=== PATIENT | female | born 1995 | race Caucasian/White ===

== ENCOUNTER 2020-01-16 11:17 | Emergency (ER) | payer OTHER, MEDICAID, SELFPAY ==
[2020-01-16 12:20] VITALS: BP 137/75; PULSE 99; RESP 18; TEMP 37.2; O2SAT 100; BMI 45.8
[2020-01-16 12:28] VITALS: BP 137/75; PULSE 99; RESP 18; TEMP 37.2; O2SAT 100
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
[2020-01-16 14:02] LABS: Appearance Urine HAZY; Color Urine YELLOW; Glucose Urine UA NEG (NEG); Leukocyte Esterase Urine 2+ (NEG); Nitrite Urine NEG (NEG); PH 6.5 (5.0-8.0); Urine Blood 2+ (NEG); Urine Ketones NEG (NEG); Urine Protein NEG (NEG-TRACE)
[2020-01-16 14:10] LABS: UPreg QC Valid YES; Urine Pregnancy NEGATIVE (NEGATIVE)
[2020-01-16 14:18] LABS: Bacteria Urine 2+ /LPF; Mucus Urine 1+ /LPF; Squamous Epithelial Cell Urine 1+ /LPF; WBC Clumps Urine NOTED
--- NOTE | 2020-01-16 14:52 | PC.NURSE ---
Report given to oncoming nurse, Niyah BOO. No further questions from Niyah BOO. Provider aware.
== END 2020-01-16 16:00 | disposition home or self-care (01) ==
PROVIDERS: Physician Assistant Medical; Emergency Provider Emergency Medicine
DX: S06.0X0A Concussion without loss of consciousness, initial encounter (principal); S40.022A Contusion of left upper arm, initial encounter; S20.212A Contusion of left front wall of thorax, initial encounter; Y04.2XXA Assault by strike against or bumped into by another person, initial encounter; N39.0 Urinary tract infection, site not specified; Y93.89 Activity, other specified; Y92.099 Unspecified place in other non-institutional residence as the place of occurrence of the external cause; Y99.9 Unspecified external cause status
CPT/HCPCS: 70450; 71046; 73060; 81001; 81025; 87086; 99284

== ENCOUNTER 2020-01-21 15:22 | Emergency (ER) | payer OTHER, MEDICAID, SELFPAY ==
[2020-01-21] VITALS (8 sets, daily range): BP systolic 115–135; BP diastolic 64–91; PULSE 56–85; RESP 18; TEMP 37.5; O2SAT 96–98; BMI 45.8
--- NOTE | 2020-01-21 17:43 | ECG_ITS ---
Test Reason : SYNCOPEE Blood Pressure : / mmHG Vent. Rate : 065 BPM Atrial Rate : 065 BPM P-R Int : 152 ms QRS Dur : 076 ms QT Int : 398 ms P-R-T Axes : 019 063 044 degrees QTc Int : 413 ms Sinus rhythm with marked sinus arrhythmia Otherwise normal ECG When compared with ECG of 09-NOV-2016 15:18, No significant change was found Referred By: Katarzyna Granados Electronically Signed By:PRIYA MENON MD
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
[2020-01-21] MEDS: 0.9 % Sodium Chloride 1,000 ML 999 ML IVCONT (18:35)
[2020-01-21 18:40] LABS: MANUAL DIFF FLAG NO
[2020-01-21 18:54] LABS: Basophils Percent Auto 0.4 % (0-2); Eosinophils Absolute Auto 0.1 X10*3/uL (0.0-0.4); Eosinophils Percent Auto 0.7 % (0-4); Hematocrit 39.2 % (37-47); Hemoglobin 13.5 g/dl (12.0-16.0); Imm Gran Abs Auto 0.03 X10*3/uL (0.00-0.03); Imm Gran Pct Auto 0.3 % (0.0-0.4); Lymphocytes Absolute Auto 1.9 X10*3/uL (1.2-4.9); Lymphocytes Percent Auto 19.4 % (20-40); Mean Corpuscular HGB Conc 34.4 g/dl (31.0-35.0); Mean Corpuscular Volume 89.9 fL (80-98); Mean Platelet Volume 8.9 fL (9.4-12.3); Monocytes Absolute Auto 0.5 X10*3/uL (0.1-1.2); Monocytes Percent Auto 5.1 % (2-11); Neutrophils Absolute Auto 7.4 X10*3/uL (2.0-8.3); Neutrophils Percent Auto 74.1 % (45-73); Platelet Count 280 X10*3/uL (160-400); Red Blood Count 4.36 X10*6/uL (4.20-5.50); Red Cell Distribution Width 13.1 % (11.0-16.0)
[2020-01-21 19:17] LABS: Alanine Aminotransferase 18 U/L (0-31); Albumin Level 4.2 g/dL (3.5-5.0); Alkaline Phosphatase 60 U/L (39-117); Anion Gap 11 (12-20); Aspartate Amino Transferase 19 U/L (5-31); Bilirubin Direct 0.6 mg/dL (0.0-0.5); Bilirubin Total 1.2 mg/dL (0.0-1.0); Blood Urea Nitrogen 9 mg/dL (9-16); Calcium 9.6 mg/dL (8.4-10.2); Carbon Dioxide 30 mmol/L (22-29); Chloride 104 mmol/L (96-108); Creatinine Clr Calc Pharmacy 101.2; Estimated Glomerular Filt Rate > 60; Glucose Random 78 mg/dL (60-115); Potassium 4.3 mmol/l (3.3-5.1); Sodium 141 mmol/L (135-145)
[2020-01-21 19:23] LABS: Troponin-I High Sensitivity < 3.5 ng/L (<3.5-17.0)
[2020-01-21 19:47] LABS: Glucose Urine UA NEG (NEG); Leukocyte Esterase Urine 1+ (NEG); Nitrite Urine NEG (NEG); Urine Blood NEG (NEG); Urine Ketones 15 MG/DL (NEG); Urine Protein NEG (NEG-TRACE)
[2020-01-21 19:54] LABS: Appearance Urine HAZY; Color Urine YELLOW
[2020-01-21 19:55] LABS: UPreg QC Valid YES; Urine Pregnancy NEGATIVE (NEGATIVE)
[2020-01-21 20:02] LABS: RBC Urine 0 /HPF (0)
[2020-01-21 20:03] LABS: Bacteria Urine TRACE /LPF; Squamous Epithelial Cell Urine 2+ /LPF
[2020-01-21] MEDS: Acetaminophen 325 MG TABLET 650 MG PO (20:36)
[2020-01-21] MEDS: Meclizine HCl 25 MG TABLET PO (20:36)
[2020-01-21] MEDS: ondansetron HCL 4 MG/2 ML VIAL IVPUSH (20:43)
== END 2020-01-21 21:42 | disposition home or self-care (01) ==
PROVIDERS: Physician Assistant; Emergency Provider Emergency Medicine
DX: S06.0X9A Concussion with loss of consciousness of unspecified duration, initial encounter (principal); G44.309 Post-traumatic headache, unspecified, not intractable; R42 Dizziness and giddiness; Y04.8XXA Assault by other bodily force, initial encounter; Y93.9 Activity, unspecified; Y92.9 Unspecified place or not applicable; Z79.899 Other long term (current) drug therapy
CPT/HCPCS: 36415; 80048; 80076; 81001; 81025; 83735; 84484; 85025; 87086; 93005; 96361; 96374; 99284; J2405

== ENCOUNTER 2020-06-14 20:40 | Emergency (ER) | payer MEDICAID, SELFPAY ==
--- NOTE | 2020-06-14 21:57 | ED_ITS ---
HPI - Headache General Chief Complaint: General Medical Stated Complaint: Migraine Time Seen by Provider: 06/14/20 21:57 Source: patient Mode of arrival: ambulatory Limitations: other (hard of hearing) History of Present Illness HPI Narrative: patient states she has had months of tinnitus and headache. She is here now because symptoms are worse. Mother told her to come in and get checked MD elicited complaint: headache and migraine Onset (ago): month(s) Onset description: gradually Location: frontal and temporal Severity: mild Quality & Timing: throbbing Exacerbating factors: exertion Relieving factors: nothing Context: occurred at rest Associated symptoms: nausea Related Data Previous Rx's Medication Instructions Recorded nitrofurantoin monohyd/m-cryst 100 mg PO Q12H 5 Days #10 cap 01/16/20 [Macrobid] acetaminophen-codeine 1 tab PO Q8H PRN 3 Days #9 tab 01/17/20 acetaminophen [Tylenol Extra 500 mg PO Q6H PRN #20 tab 01/21/20 Strength] meclizine 25 mg PO TID PRN #14 tab 01/21/20 ondansetron HCl [Zofran] 4 mg PO Q8H PRN #10 tab 01/21/20 naproxen [Naprosyn] 500 mg PO BID #20 tab 06/14/20 ondansetron HCl [Zofran] 4 mg PO Q8H PRN #10 tab 06/14/20 Allergies Allergy/AdvReac Type Severity Reaction Status Date / Time acetic acid Allergy Severe ANAPHYLAXIS Verified 01/21/20 17:47 FROM VINEGAR raspberry [RASPBERRY] Allergy Severe ANAPHYLAXIS Verified 01/21/20 17:47 turkey Allergy Severe ANAPHYLAXIS Verified 01/21/20 17:47 azithromycin [AZITHROMYCIN] Allergy Unknown VOMITING Verified 01/21/20 17:47 cefuroxime [Ceftin] Allergy Unknown vomiting Verified 01/21/20 17:47 clonidine [CLONIDINE] Allergy Unknown NAUSEA & Verified 01/21/20 17:47 VOMITING, vomiting dexlansoprazole Allergy Unknown UNKNOWN Verified 01/21/20 17:47 [From DEXILANT] Erythromycin Allergy Unknown vomiting Verified 01/21/20 17:47 methylphenidate Allergy Unknown UNKNOWN Verified 01/21/20 17:47 [Methylphenidate] nortriptyline [NORTRIPTYLINE] Allergy Unknown SWELLING Verified 10/16/20 17:47 pantoprazole [PANTOPRAZOLE] Allergy Unknown UNKNOWN Verified 01/21/20 17:47 penicillin V Allergy Unknown vomiting Verified 01/21/20 17:47 celecoxib [CELECOXIB] AdvReac Unknown NAUSEA & Verified 01/21/20 17:47 VOMITING erythromycin base AdvReac Unknown HIVES/VOMIT Verified 01/21/20 17:47 [ERYTHROMYCIN BASE] ING lorazepam [From ATIVAN] AdvReac Unknown AGITATION Verified 01/21/20 17:47 Penicillins [PENICILLINS] AdvReac Unknown STOMACH Verified 01/21/20 17:47 UPSET Epidural Needle Allergy Unknown Unknown Uncoded 01/21/20 17:47 From Ceftin Allergy Unknown UNKNOWN Uncoded 12/23/19 16:20 Review of Systems Constitutional: Constitutional: Reports no additional constitutional complaints Eyes: Eyes: Reports no additional eye complaints ENT: Denies dizziness Cardiovascular: Cardiovascular: Reports no additional cardiovascular complaints Respiratory: Respiratory: Reports as per HPI Gastrointestinal: Gastrointestinal: Reports no additional gastrointestinal complaints Genitourinary: Genitourinary: Reports no additional female genitourinary complaints Musculoskeletal: Musculoskeletal: Reports no additional musculoskeletal complaints Integumentary/Breasts: Skin/Breast: Denies rash Neurologic: Reports system reviewed and no additional complaints, except as documented, Denies dizziness and Denies Sensory deficit (Neuro) Psychiatric: Psychiatric: Denies anxiety PMFSH Past Medical History Medical History Fibromyalgia Hearing impaired Lesion of liver Surgical History [place] teeth removed Social History Social History Alcohol intake: never Smoking Status: Never smoker Advance Directives: No Advance Directives Information Provided: Yes Physical Exam Vital Signs: Vital Signs: Last Vital Signs Temp 98.4 F 06/14/20 22:08 Pulse 80 06/14/20 22:08 Resp 18 06/14/20 22:08 BP 113/63 06/14/20 22:08 Pulse Ox 98 06/14/20 22:08 Body Mass Index 46.8 Const: General: comfortable Nutritional Appearance: obese Orientation/consciousness: oriented to person and patient oriented x3 Limitations: no limitations HENMT: Head: Yes normal to inspection Ears: external ears normal General nose exam: Normal external nose present Mouth: Normal oral and palatal mucosa present and oropharynx normal Throat: Yes posterior oropharynx normal Eyes: General: appearance normal, both eyes and all related structures Neck: Other: supple Neck: Yes normal visual inspection Chest: Chest palpation & inspection: normal inspection of the chest Resp: Auscultation: clear to auscultation bilaterally Cardio: Jugular venous distension: no JVD Rate: regular rate Rhythm: regular rhythm Heart sounds: S1 normal heart sound present and S2 normal heart sound present GI: Inspection: Yes normal to inspection Palpation (GI): Soft to palpation, nontender and No hepatosplenomegaly present Auscultation: normal bowel sounds : General: Yes no CVA tenderness Back/Spine/Pelvis: Back: no CVA tenderness Skin: General skin exam: no rashes or lesions noted Neuro: General: oriented to person and patient oriented x3 Cranial nerves: Yes CN's II-XII intact bilaterally Motor exam (neuro): 5/5 motor strength present throughout Sensory Exam: No Sensory deficit (Neuro) Extrem: General: Yes normal to inspection Psych: Appearance: grossly normal Course Course Course Narrative: patient nonfocal in no acute distress will dc on NSAIDs and zofran MDM - Headache MDM Narrative Medical decision making narrative: tinnitus Differential Diagnosis Differential diagnosis: Likely migraine and tension headache Discharge Plan Discharge Clinical Impression: Bilateral tinnitus Migraine Qualifiers: Migraine type: with aura Status migrainosus presence: with status migrainosus Intractability: not intractable Qualified Code(s): G43.101 - Migraine with aura, not intractable, with status migrainosus Patient Disposition: Home, Self-Care Instructions: Migraine Headache (ED), Tinnitus (ED) Prescriptions: New ondansetron HCl [Zofran] 4 mg tablet 4 mg PO Q8H PRN (Reason: nausea and vomiting) Qty: 10 RF: 0 naproxen [Naprosyn] 500 mg tablet 500 mg PO BID Qty: 20 RF: 0 No Action nitrofurantoin monohyd/m-cryst [Macrobid] 100 mg capsule 100 mg PO Q12H 5 Days Qty: 10 RF: 0 acetaminophen-codeine 300-30 mg tablet 1 tab PO Q8H PRN (Reason: pain) 3 Days Qty: 9 RF: 0 ondansetron HCl [Zofran] 4 mg tablet 4 mg PO Q8H PRN (Reason: nausea and vomiting) Qty: 10 RF: 0 acetaminophen [Tylenol Extra Strength] 500 mg tablet 500 mg PO Q6H PRN (Reason: pain or fever) Qty: 20 RF: 0 meclizine 25 mg tablet 25 mg PO TID PRN (Reason: dizziness) Qty: 14 RF: 0 Referrals: Rik Gibbons DO, MD [Primary Care Provider] - 2 days
[2020-06-14 22:08] VITALS: BP 113/63; PULSE 80; RESP 18; TEMP 36.9; O2SAT 98; BMI 46.8
[2020-06-14] MEDS: Ketorolac Tromethamine 60 MG/2 ML VIAL IM (23:06)
== END 2020-06-14 23:08 | disposition home or self-care (01) ==
PROVIDERS: Emergency Provider Emergency Medicine; PCP Internal Medicine
DX: G43.101 Migraine with aura, not intractable, with status migrainosus (principal); H93.13 Tinnitus, bilateral
CPT/HCPCS: 96372; 99283; 99284; J1885

== ENCOUNTER 2020-06-30 16:45 | Emergency (ER) | payer MEDICAID, SELFPAY ==
[2020-06-30 17:24] VITALS: BP 108/59; PULSE 74; RESP 16; TEMP 37; O2SAT 99; BMI 46.3
--- NOTE | 2020-06-30 21:37 | ED_ITS ---
HPI - Headache General Chief Complaint: Headache Stated Complaint: Migraine Time Seen by Provider: 06/30/20 21:17 Source: patient and other (Boyfriend) History of Present Illness HPI Narrative: This is a 24-year-old female with history of being hearing impaired since approximately 2010 as well as history of migraines and presents here with 1 month of migraines not associated with fevers, chills, speech or vision abnormalities and no noted focal deficits. Patient was seen at [facility] this morning and history was partially supplied by the boyfriend who is at bedside and was communicating via text due to patient's hearing difficulties. He reports that patient has a brain malformation since (review of head CT 01/16/2020 does not describe this finding however may be secondary to the window of the exam). Patient has tried several over-the- counter treatment modalities with limited success. Related Data Previous Rx's Medication Instructions Recorded nitrofurantoin monohyd/m-cryst 100 mg PO Q12H 5 Days #10 cap 01/16/20 [Macrobid] acetaminophen-codeine 1 tab PO Q8H PRN 3 Days #9 tab 01/17/20 acetaminophen [Tylenol Extra 500 mg PO Q6H PRN #20 tab 01/21/20 Strength] meclizine 25 mg PO TID PRN #14 tab 01/21/20 ondansetron HCl [Zofran] 4 mg PO Q8H PRN #10 tab 01/21/20 naproxen [Naprosyn] 500 mg PO BID #20 tab 06/14/20 ondansetron HCl [Zofran] 4 mg PO Q8H PRN #10 tab 06/14/20 [id number]-vvjgzepbcxvmo-xfsy 1 cap PO Q8H PRN #7 cap 07/01/20 [Fioricet] nitrofurantoin monohyd/m-cryst 100 mg PO Q12H 5 Days #10 cap 07/01/20 [Macrobid] Allergies Allergy/AdvReac Type Severity Reaction Status Date / Time acetic acid Allergy Severe ANAPHYLAXIS Verified 01/21/20 17:47 FROM VINEGAR raspberry [RASPBERRY] Allergy Severe ANAPHYLAXIS Verified 01/21/20 17:47 turkey Allergy Severe ANAPHYLAXIS Verified 01/21/20 17:47 azithromycin [AZITHROMYCIN] Allergy Unknown VOMITING Verified 01/21/20 17:47 cefuroxime [Ceftin] Allergy Unknown vomiting Verified 01/21/20 17:47 clonidine [CLONIDINE] Allergy Unknown NAUSEA & Verified 01/21/20 17:47 VOMITING, vomiting dexlansoprazole Allergy Unknown UNKNOWN Verified 01/21/20 17:47 [From DEXILANT] Erythromycin Allergy Unknown vomiting Verified 01/21/20 17:47 methylphenidate Allergy Unknown UNKNOWN Verified 01/21/20 17:47 [Methylphenidate] nortriptyline [NORTRIPTYLINE] Allergy Unknown SWELLING Verified 01/21/20 17:47 pantoprazole [PANTOPRAZOLE] Allergy Unknown UNKNOWN Verified 01/21/20 17:47 penicillin V Allergy Unknown vomiting Verified 01/21/20 17:47 celecoxib [CELECOXIB] AdvReac Unknown NAUSEA & Verified 01/21/20 17:47 VOMITING erythromycin base AdvReac Unknown HIVES/VOMIT Verified 01/21/20 17:47 [ERYTHROMYCIN BASE] ING lorazepam [From ATIVAN] AdvReac Unknown AGITATION Verified 01/21/20 17:47 Penicillins [PENICILLINS] AdvReac Unknown STOMACH Verified 01/21/20 17:47 UPSET Epidural Needle Allergy Unknown Unknown Uncoded 01/21/20 17:47 From Ceftin Allergy Unknown UNKNOWN Uncoded 12/23/19 16:20 Review of Systems Review of Systems: Pertinent positives and negatives as stated in HPI 10 point review of systems is otherwise negative. PMFSH Past Medical History Source: nursing notes reviewed Medical History Fibromyalgia Hearing impaired Lesion of liver Surgical History [place] teeth removed Social History Social History Alcohol intake: never Smoking Status: Never smoker Use of substances other than those prescribed or required for medical reasons: No Advance Directives: No Advance Directives Information Provided: Yes Physical Exam Vital Signs: Vital Signs: Last Vital Signs Temp 98.6 F 06/30/20 17:24 Pulse 74 06/30/20 17:24 Resp 18 07/01/20 00:00 BP 108/59 L 06/30/20 17:24 Pulse Ox 99 06/30/20 17:24 Body Mass Index 46.3 VITAL SIGNS: Reviewed. GENERAL: Well developed, well nourished, in no acute distress. HEAD: Normocephalic/atraumatic, EYES: PERRLA, EOMI intact without pain, no nystagmus NOSE: Nares patent bilateral OROPHARYNX: no oral lesions noted, posterior pharynx clear NECK: Supple, no adenopathy LUNGS: Normal breath sounds. No adventitious sounds or accessory muscle use. SpO2<> CARDIOVASCULAR: Regular rate and rhythm without noted murmurs ABDOMEN: Soft, non-tender, non-distended with bowel sounds. NEUROLOGIC: Alert and oriented x 4. Strength and sensation to light touch were grossly intact x 4, cranial nerves 2-12 are grossly intact, cerebellar function testing is within normal limits. Course Course Course Narrative: This is a 24-year-old female with history and clinical presentation consistent with migraine history despite having not had a migraine recently and there are no focal deficit findings to suggest more concerning fea tures such as brain mass or increased intracranial pressure. Patient will undergo migraine cocktail and be re-evaluated. On review of all investigations there is a mild leukocytosis and taken in con junction with the urinalysis patient will be treated for UTI with initial dose of Macrobid here in the ED and then discharged with remaining prescription. Otherwise, there are no acute findings. On re-evaluation patient has had improvement of headache. MDM - Headache Lab Data Result diagrams: 06/30/20 21:45 06/30/20 21:45 Labs: Lab Results 06/30/20 06/30/20 06/30/20 Range/Units 21:45 21:45 22:59 WBC 11.0 H (4.8-10.8) X10*3/uL RBC 4.56 (4.20-5.50) X10*6/uL Hgb 14.0 (12.0-16.0) g/dl Hct 41.2 (37-47) % MCV 90.4 (80-98) fL MCH 30.7 (27.0-33.0) pg MCHC 34.0 (31.0-35.0) g/dl RDW 12.7 (11.0-16.0) % Plt Count 285 (160-400) X10*3/uL MPV 8.9 L (9.4-12.3) fL Immature Gran % (Auto) 0.2 (0.0-0.4) % Neut % (Auto) 66.5 (45-73) % Lymph % (Auto) 25.8 (20-40) % [place] % (Auto) 4.6 (2-11) % Eos % (Auto) 2.4 (0-4) % Baso % (Auto) 0.5 (0-2) % Lymph # (Auto) 2.8 (1.2-4.9) X10*3/uL [place] # (Auto) 0.5 (0.1-1.2) X10*3/uL Eos # (Auto) 0.3 (0.0-0.4) X10*3/uL Baso # (Auto) 0.1 (0.0-0.2) X10*3/uL Abs Immat Gran (auto) 0.02 (0.00-0.03) X10*3/uL Absolute Neuts (auto) 7.3 (2.0-8.3) X10*3/uL Absolute Nucleated RBC 0.000 (0.0-0.012) X10*3/uL Nucleated RBC % (auto) 0.0 (0.0-0.2) /100WBC Sodium 142 (135-145) mmol/L Potassium 4.6 (3.3-5.1) mmol/L Chloride 106 (96-108) mmol/L Carbon Dioxide 24 (22-29) mmol/L Anion Gap 17 (12-20) BUN 14 D (9-16) mg/dL Creatinine 1.13 (0.5-1.4) mg/dL Estim Creat Clear Calc 83.7 Estimated GFR 58 Random Glucose 77 (60-115) mg/dL Calcium 9.3 (8.4-10.2) mg/dL Total Bilirubin 0.8 (0.0-1.0) mg/dL AST 18 (5-31) U/L ALT 18 (0-31) U/L Alkaline Phosphatase 67 (39-117) U/L Total Protein 7.5 (6.5-8.0) g/dL Albumin 4.3 (3.5-5.0) g/dL Urine Color YELLOW Urine Appearance CLEAR Urine pH 5.5 (5.0-8.0) Ur Specific [place] 1.025 (1.005-1.025) Urine Protein NEG (NEG-TRACE) MG/DL Urine Glucose (UA) NEG (NEG) MG/DL Urine Ketones 5 (NEG) MG/DL Urine Blood 2+ H (NEG) Urine Nitrite NEG (NEG) Ur Leukocyte Esterase 1+ H (NEG) Urine RBC 1-4 (0) /HPF Urine WBC 5-9 H (0-4) /HPF Ur Squamous Epith Cells TRACE /LPF Urine Bacteria 1+ /LPF Urine Mucus TRACE /LPF Urine Test (NEGATIVE) Urine Opiates Screen (Not Detect) Ur Barbiturates Screen (Not Detect) Ur Phencyclidine Scrn (Not Detect) Ur Amphetamines Screen (Not Detect) U Benzodiazepines Scrn (Not Detect) Urine Cocaine Screen (Not Detect) U Marijuana (THC) Screen (Not Detect) 06/30/20 06/30/20 Range/Units 22:59 22:59 WBC (4.8-10.8) X10*3/uL RBC (4.20-5.50) X10*6/uL Hgb (12.0-16.0) g/dl Hct (37-47) % MCV (80-98) fL MCH (27.0-33.0) pg MCHC (31.0-35.0) g/dl RDW (11.0-16.0) % Plt Count (160-400) X10*3/uL MPV (9.4-12.3) fL Immature Gran % (Auto) (0.0-0.4) % Neut % (Auto) (45-73) % Lymph % (Auto) (20-40) % [place] % (Auto) (2-11) % Eos % (Auto) (0-4) % Baso % (Auto) (0-2) % Lymph # (Auto) (1.2-4.9) X10*3/uL [place] # (Auto) (0.1-1.2) X10*3/uL Eos # (Auto) (0.0-0.4) X10*3/uL Baso # (Auto) (0.0-0.2) X10*3/uL Abs Immat Gran (auto) (0.00-0.03) X10*3/uL Absolute Neuts (auto) (2.0-8.3) X10*3/uL Absolute Nucleated RBC (0.0-0.012) X10*3/uL Nucleated RBC % (auto) (0.0-0.2) /100WBC Sodium (135-145) mmol/L Potassium (3.3-5.1) mmol/L Chloride (96-108) mmol/L Carbon Dioxide (22-29) mmol/L Anion Gap (12-20) BUN (9-16) mg/dL Creatinine (0.5-1.4) mg/dL Estim Creat Clear Calc Estimated GFR Random Glucose (60-115) mg/dL Calcium (8.4-10.2) mg/dL Total Bilirubin (0.0-1.0) mg/dL AST (5-31) U/L ALT (0-31) U/L Alkaline Phosphatase (39-117) U/L Total Protein (6.5-8.0) g/dL Albumin (3.5-5.0) g/dL Urine Color Urine Appearance Urine pH (5.0-8.0) Ur Specific [place] (1.005-1.025) Urine Protein (NEG-TRACE) MG/DL Urine Glucose (UA) (NEG) MG/DL Urine Ketones (NEG) MG/DL Urine Blood (NEG) Urine Nitrite (NEG) Ur Leukocyte Esterase (NEG) Urine RBC (0) /HPF Urine WBC (0-4) /HPF Ur Squamous Epith Cells /LPF Urine Bacteria /LPF Urine Mucus /LPF Urine Test NEGATIVE (NEGATIVE) Urine Opiates Screen Not Detected (Not Detect) Ur Barbiturates Screen Not Detected (Not Detect) Ur Phencyclidine Scrn Not Detected (Not Detect) Ur Amphetamines Screen Not Detected (Not Detect) U Benzodiazepines Scrn Not Detected (Not Detect) Urine Cocaine Screen Not Detected (Not Detect) U Marijuana (THC) Screen Not Detected (Not Detect) Discharge Plan Discharge Clinical Impression: Headache Qualifiers: Headache type: unspecified Headache chronicity pattern: chronic headache Intractability: not intractable Qualified Code(s): R51.9 - Headache, unspecified UTI (urinary tract infection) Qualifiers: Urinary tract infection type: acute cystitis Hematuria presence: without hematuria Qualified Code(s): N30.00 - Acute cystitis without hematuria Patient Disposition: Home, Self-Care Instructions: Urinary Tract Infection in Women (ED), General Headache (ED) Additional Instructions: Please follow-up with your primary care provider on Friday morning. You have been provided with a prescription for Fioricet as well as an antibiotic for your UTI. Do not hesitate to return to the emergency department should you experience any acute worsening of your symptoms. Prescriptions: New ecaursriyp-ybsgtuzjgoemm-vjoo [Fioricet] 50-300-40 mg capsule 1 cap PO Q8H PRN (Reason: pain) Qty: 7 RF: 0 nitrofurantoin monohyd/m-cryst [Macrobid] 100 mg capsule 100 mg PO Q12H 5 Days Qty: 10 RF: 0 No Action nitrofurantoin monohyd/m-cryst [Macrobid] 100 mg capsule 100 mg PO Q12H 5 Days Qty: 10 RF: 0 acetaminophen-codeine 300-30 mg tablet 1 tab PO Q8H PRN (Reason: pain) 3 Days Qty: 9 RF: 0 ondansetron HCl [Zofran] 4 mg tablet 4 mg PO Q8H PRN (Reason: nausea and vomiting) Qty: 10 RF: 0 acetaminophen [Tylenol Extra Strength] 500 mg tablet 500 mg PO Q6H PRN (Reason: pain or fever) Qty: 20 RF: 0 meclizine 25 mg tablet 25 mg PO TID PRN (Reason: dizziness) Qty: 14 RF: 0 ondansetron HCl [Zofran] 4 mg tablet 4 mg PO Q8H PRN (Reason: nausea and vomiting) Qty: 10 RF: 0 naproxen [Naprosyn] 500 mg tablet 500 mg PO BID Qty: 20 RF: 0 Referrals: [facility] [place] [Outside] - 2 days (Re-evaluation for headaches, lab work negative for other acute findings other than a UTI which is being treated.)
[2020-06-30] MEDS: Acetaminophen 325 MG TABLET 975 MG PO (21:46)
[2020-06-30] MEDS: Ketorolac Tromethamine 15 MG/ML VIAL IVPUSH (21:46)
[2020-06-30] MEDS: 0.9 % Sodium Chloride 1,000 ML 999 ML IV (21:46)
[2020-06-30 22:01] LABS: MANUAL DIFF FLAG NO
[2020-06-30 22:02] LABS: Basophils Absolute Auto 0.1 X10*3/uL (0.0-0.2); Basophils Percent Auto 0.5 % (0-2); Eosinophils Absolute Auto 0.3 X10*3/uL (0.0-0.4); Eosinophils Percent Auto 2.4 % (0-4); Hematocrit 41.2 % (37-47); Imm Gran Abs Auto 0.02 X10*3/uL (0.00-0.03); Imm Gran Pct Auto 0.2 % (0.0-0.4); Lymphocytes Absolute Auto 2.8 X10*3/uL (1.2-4.9); Lymphocytes Percent Auto 25.8 % (20-40); Mean Corpuscular Hemoglobin 30.7 pg (27.0-33.0); Mean Corpuscular Volume 90.4 fL (80-98); Mean Platelet Volume 8.9 fL (9.4-12.3); Monocytes Absolute Auto 0.5 X10*3/uL (0.1-1.2); Monocytes Percent Auto 4.6 % (2-11); Neutrophils Absolute Auto 7.3 X10*3/uL (2.0-8.3); Neutrophils Percent Auto 66.5 % (45-73); Platelet Count 285 X10*3/uL (160-400); Red Blood Count 4.56 X10*6/uL (4.20-5.50); Red Cell Distribution Width 12.7 % (11.0-16.0)
[2020-06-30 22:23] LABS: Alanine Aminotransferase 18 U/L (0-31); Albumin Level 4.3 g/dL (3.5-5.0); Alkaline Phosphatase 67 U/L (39-117); Anion Gap 17 (12-20); Aspartate Amino Transferase 18 U/L (5-31); Bilirubin Total 0.8 mg/dL (0.0-1.0); Blood Urea Nitrogen 14 mg/dL (9-16); Calcium 9.3 mg/dL (8.4-10.2); Carbon Dioxide 24 mmol/L (22-29); Chloride 106 mmol/L (96-108); Creatinine Clr Calc Pharmacy 83.7; Estimated Glomerular Filt Rate 58; Glucose Random 77 mg/dL (60-115); Potassium 4.6 mmol/L (3.3-5.1); Sodium 142 mmol/L (135-145); Total Protein 7.5 g/dL (6.5-8.0)
--- NOTE | 2020-06-30 22:56 | PC.NURSE ---
PT UPRIGHT IN BED, NO CHG IN PT STATUS, PT REPORTS NO IMPROVEMENT IN HEADACHE S/P MEDICATION, STS IS WORRIED D/T ONGOING HEADACHE FOR WEEKS. PT AWAITING PROVIDER RE-EVAL.
[2020-06-30] MEDS: Metoclopramide HCl 10 MG/2 ML VIAL IVPUSH (23:14)
[2020-06-30] MEDS: diphenhydrAMINE HCL 50 MG/ML VIAL 25 MG IVPUSH (23:15)
[2020-06-30 23:17] LABS: Glucose Urine UA NEG (NEG); Leukocyte Esterase Urine 1+ (NEG); Nitrite Urine NEG (NEG); PH 5.5 (5.0-8.0); Specific Gravity - Urine 1.025 (1.005-1.025); UACC Culture Trigger YES; Urine Blood 2+ (NEG); Urine Ketones 5 MG/DL (NEG); Urine Protein NEG (NEG-TRACE)
[2020-06-30 23:22] LABS: Appearance Urine CLEAR; Color Urine YELLOW
[2020-06-30 23:24] LABS: UPreg QC Valid YES; Urine Pregnancy NEGATIVE (NEGATIVE)
[2020-06-30 23:41] LABS: Amphetamine Screen Urine Not Detected (Not Detect); Barbiturates, Urine Not Detected (Not Detect); Benzodiazepines Screen Urine Not Detected (Not Detect); Cannabinoid Screen Urine Not Detected (Not Detect); Cocaine Screen Urine Not Detected (Not Detect); Opiate Screen Urine Not Detected (Not Detect); Phencyclidine Screen Urine Not Detected (Not Detect)
[2020-06-30 23:52] LABS: Bacteria Urine 1+ /LPF; Mucus Urine TRACE /LPF; Squamous Epithelial Cell Urine TRACE /LPF
[2020-07-01] VITALS: RESP 18
[2020-07-01] MEDS: Butalb/Acetamin/Caff 50/325/40 TABLET 1 TAB PO (00:50)
[2020-07-01] MEDS: Nitrofurantoin Monohyd/M-Cryst 100 MG CAPSULE PO (00:51)
== END 2020-07-01 01:35 | disposition home or self-care (01) ==
PROVIDERS: Emergency Provider Student in an Organized Health Care Education/Training Program
DX: N30.00 Acute cystitis without hematuria (principal); R51.9 Headache, unspecified; Z79.899 Other long term (current) drug therapy
CPT/HCPCS: 36415; 80053; 80307; 81001; 81003; 81025; 85025; 87086; 96365; 96375; 99284; J1200; J1885; J2765

== ENCOUNTER 2020-07-28 13:40 | Outpatient (REF) | payer MEDICAID, SELFPAY ==
--- NOTE | ~2020-07-28 | XR_ITS ---
EXAMINATION: XR ANKLE, LEFT CLINICAL INFORMATION: Lateral malleolus pain. COMPARISON: None TECHNIQUE: AP, lateral, and mortise views of the left ankle. FINDINGS: There is no acute fracture or dislocation. The joint spaces are unremarkable. The tarsal bones are normally aligned. Very small plantar and retrocalcaneal spurs are noted. Mild soft tissue swelling is seen. XR/XR ankle LT min 3V IMPRESSION: Mild soft tissue swelling without acute underlying osseous abnormality. Very small calcaneal spurs.
== END 2020-07-28 13:41 | disposition home or self-care (01) ==
LOC: HO.XRAY 13:40
PROVIDERS: PCP Nurse Practitioner; Visit Provider Nurse Practitioner
DX: M25.571 Pain in right ankle and joints of right foot (principal)
CPT/HCPCS: 73610

== ENCOUNTER 2020-09-13 11:24 | Outpatient (REF) | payer MEDICAID, SELFPAY ==
--- NOTE | ~2020-09-13 | US_ITS ---
EXAMINATION: US ABDOMEN COMPLETE CLINICAL INFORMATION: Right upper quadrant pain. COMPARISON: Abdominal ultrasound 05/17/2016. CT abdomen and pelvis 01/31/2016. TECHNIQUE: Real-time imaging of the abdominal viscera. Technically difficult study secondary to body habitus. FINDINGS: PANCREAS: Partially visualized head of the body is homogeneous in echotexture. Rest of the body, tail and head of the pancreas is not visualized. ABDOMINAL AORTA: The proximal, mid, and distal segments are normal in caliber. INFERIOR VENA CAVA: Visualized portions are normal. LIVER: The liver is normal in size. The liver contour is normal. Parenchymal echogenicity is normal. There are 2 echogenic lesions seen consistent with hemangiomas measuring 1.3 x 1.2 x 1.1 cm in the anterior segment right hepatic lobe. The smaller lesions adjacent to the gallbladder measure 0.4 x 0.6 x 0.4 cm. There is no intrahepatic biliary duct dilatation seen. There is a nonspecific echogenic calcification adjacent to the right kidney likely previous surgery. GALLBLADDER: Normal. The gallbladder is physiologically distended without evidence of stones, sludge, polyps, wall thickening or pericholecystic fluid. COMMON BILE DUCT: Normal in caliber measuring 0.4 cm in diameter. RIGHT KIDNEY: Normal. No hydronephrosis. No renal calculi or focal parenchymal lesions. The kidney measures 11.2 cm in maximum dimension. LEFT KIDNEY: There is an anechoic cyst in midpole measuring 1.2 x 1.0 x 1.1 cm with a peripheral wall calcification. A few scattered echogenic foci are seen as well. No hydronephrosis or renal calculi. The kidney measures 10.1 cm in maximum dimension. SPLEEN: Normal. The spleen measures 10.3 cm in maximum dimension. FREE FLUID: None. US/US abdomen complete IMPRESSION: Two hemangiomas of the liver. No other focal lesion or intrahepatic ductal dilatation seen. Complex cyst midpole left kidney. There are a few scattered echogenic foci in the kidney. The pancreas is partially visualized.
== END 2020-09-13 11:25 | disposition home or self-care (01) ==
LOC: HO.US 11:24
PROVIDERS: Visit Provider Nurse Practitioner
DX: R10.11 Right upper quadrant pain (principal)
CPT/HCPCS: 76700

== ENCOUNTER → 2020-09-26 11:22 | Outpatient (BNVA) | payer MEDICAID, SELFPAY | PROVIDERS: PCP Nurse Practitioner; Referring Provider Nurse Practitioner; Visit Provider Nurse Practitioner Family | DX: K21.9 Gastro-esophageal reflux disease without esophagitis (principal); K76.9 Liver disease, unspecified | CPT/HCPCS: 99202 ==

== ENCOUNTER 2020-11-17 15:04 | Outpatient (REF) | payer MEDICAID, SELFPAY ==
--- NOTE | ~2020-11-17 | MR_ITS ---
EXAMINATION: MR ANKLE WITHOUT CONTRAST, RIGHT CLINICAL INFORMATION: Right ankle and foot pain. Medial and lateral pain. COMPARISON: None TECHNIQUE: Multisequence MR imaging of the right ankle was obtained without contrast on a high-field strength scanner. FINDINGS: BONE AND ARTICULAR CARTILAGE: Minimal marrow edema within the medial aspect of the talar body, which could represent a stress reaction versus osseous contusion. No acute fracture or dislocation. Intact articular cartilage. No talar osteochondral lesion. Tiny plantar and dorsal calcaneal spurs. ACHILLES TENDON: Normal. OTHER TENDONS: Intact. LIGAMENTS: Intact. JOINT FLUID AND SOFT TISSUES: No joint effusion. Subcutaneous soft tissues are normal. PLANTAR FASCIA: Tiny plantar calcaneal spur. Intact plantar fascia. SINUS TARSI AND TARSAL TUNNEL: Normal. MR/MR ankle RT wo con IMPRESSION: 1. Focal marrow edema within the medial aspect of the talar body, which could represent a stress reaction versus osseous contusion. No additional abnormal marrow signal. 2. No acute ligament or tendon injury. 3. Tiny plantar and dorsal calcaneal spurs.
== END 2020-11-17 15:05 | disposition home or self-care (01) ==
LOC: HO.MRI 15:04
PROVIDERS: PCP Nurse Practitioner; Visit Provider Nurse Practitioner
DX: M25.571 Pain in right ankle and joints of right foot (principal)
CPT/HCPCS: 73721

== ENCOUNTER 2020-11-19 22:26 | Emergency (ER) | payer MEDICAID, SELFPAY ==
--- NOTE | ~2020-11-19 | CT_ITS ---
EXAMINATION: CT ABDOMEN AND PELVIS WITH CONTRAST CLINICAL INFORMATION: Diffuse abdominal pain COMPARISON: 01/31/2016 TECHNIQUE: Multidetector volumetric images were obtained from the superior aspect of the liver through the pubic symphysis following administration 85 mL of Omnipaque 350 intravenous contrast. Sagittal and coronal reformatted images were obtained on the technologist's workstation. Oral contrast: No This CT examination was performed using dose optimization techniques as appropriate, variously including the following: *Automated exposure control *Adjustment of mA and/or kV according to patient size (this includes techniques or standardized protocols for targeted exams where dose is matched to indication/reason for exam; i.e. extremities or head) *Use of iterative reconstruction technique DLP: 885 mGy-cm FINDINGS: LUNG BASES: The visualized lung bases are unremarkable. LIVER, GALLBLADDER, AND BILIARY TREE: The liver is normal in size, shape, and attenuation. No biliary ductal dilatation. 0.9 cm hypoattenuating lesion in segment 8 of the liver is too small to fully characterize. Surgical clips along the right lobe of the liver inferiorly. The gallbladder is unremarkable with no evidence of radiopaque gallstones, gallbladder wall thickening, or obvious pericholecystic inflammatory changes. PANCREAS: Unremarkable. SPLEEN: Unremarkable. ADRENAL GLANDS: Unremarkable. KIDNEYS AND URETERS: The kidneys are normal in size, shape, and attenuation. No hydronephrosis, hydroureter, or calculi seen. No perinephric stranding. BLADDER: Unremarkable. GASTROINTESTINAL TRACT: The stomach is unremarkable. Normal caliber small bowel. No obstruction. No colonic wall thickening or inflammatory change. Normal appendix. No free air or free fluid. ABDOMINAL WALL: No significant hernia is appreciated. LYMPH NODES: Normal. VASCULAR: Unremarkable. PELVIC VISCERA: The uterus and adnexa are unremarkable. OSSEOUS STRUCTURES: Unremarkable. CT/CT abdomen pelvis w con IMPRESSION: No acute findings in the abdomen or pelvis. No inflammatory changes.
[2020-11-19 22:39] VITALS: BP 118/70; PULSE 80; RESP 18; O2SAT 99; BMI 44.5
[2020-11-19 22:44] VITALS: BP 132/80; PULSE 90; O2SAT 98
--- NOTE | 2020-11-19 22:48 | ED.ABDPAIN ---
HPI - Abdominal Pain General Chief Complaint: Abdominal Pain Stated Complaint: abd pain x 1 week Time Seen by Provider: 11/19/20 22:31 Source: patient Mode of arrival: EMS History of Present Illness HPI narrative: 24-year-old female with history of deafness who presents with 1 week of diffuse abdominal discomfort after she ate pork 1 week ago. She reports intermittent nausea with nonbloody vomiting as well as several episodes of nonbloody diarrhea but denies any fever or chills and states there are no alleviating maneuvers and that the pain seems to radiate into her back. She was seen at the clinic on Friday and had blood work as well as urinalysis. Patient has positive surgical history and endorses a mass removal from her liver and at that time she did not have her gallbladder removed. Otherwise, she denies fever, chills and denies any urinary symptoms. Related Data Previous Rx's Medication Instructions Recorded nitrofurantoin 100 mg PO Q12H 5 Days #10 cap 01/16/20 monohydrate/macrocrystals 100 mg capsule (Macrobid) acetaminophen 300 mg-codeine 30 mg 1 tab PO Q8H PRN 3 Days #9 tab 01/17/20 tablet acetaminophen 500 mg tablet 500 mg PO Q6H PRN #20 tab 01/21/20 (Tylenol Extra Strength) meclizine 25 mg tablet 25 mg PO TID PRN #14 tab 01/21/20 lnytepifsi-ohuzvmdlplfqs-toygbcyy 1 cap PO Q8H PRN #7 cap 07/01/20 50 mg-300 mg-40 mg capsule (Fioricet) nitrofurantoin 100 mg PO Q12H 5 Days #10 cap 07/01/20 monohydrate/macrocrystals 100 mg capsule (Macrobid) famotidine 20 mg tablet (Pepcid) 20 mg PO DAILY #30 tab 09/26/20 Allergies Allergy/AdvReac Type Severity Reaction Status Date / Time acetic acid Allergy Severe ANAPHYLAXIS Verified 09/26/20 11:40 FROM VINEGAR raspberry [RASPBERRY] Allergy Severe ANAPHYLAXIS Verified 09/26/20 11:40 turkey Allergy Severe ANAPHYLAXIS Verified 09/26/20 11:40 azithromycin [AZITHROMYCIN] Allergy Unknown VOMITING Verified 09/26/20 11:40 cefuroxime [Ceftin] Allergy Unknown vomiting Verified 09/26/20 11:40 clonidine [CLONIDINE] Allergy Unknown NAUSEA & Verified 09/26/20 11:40 VOMITING, vomiting dexlansoprazole Allergy Unknown UNKNOWN Verified 09/26/20 11:40 [From DEXILANT] Erythromycin Allergy Unknown vomiting Verified 09/26/20 11:40 methylphenidate Allergy Unknown UNKNOWN Verified 09/26/20 11:40 [Methylphenidate] nortriptyline [NORTRIPTYLINE] Allergy Unknown SWELLING Verified 09/26/20 11:40 pantoprazole [PANTOPRAZOLE] Allergy Unknown UNKNOWN Verified 09/26/20 11:40 penicillin V Allergy Unknown vomiting Verified 09/26/20 11:40 celecoxib [CELECOXIB] AdvReac Unknown NAUSEA & Verified 09/26/20 11:40 VOMITING erythromycin base AdvReac Unknown HIVES/VOMIT Verified 09/26/20 11:40 [ERYTHROMYCIN BASE] ING lorazepam [From ATIVAN] AdvReac Unknown AGITATION Verified 09/26/20 11:40 Penicillins [PENICILLINS] AdvReac Unknown STOMACH Verified 09/26/20 11:40 UPSET Epidural Needle Allergy Unknown Unknown Uncoded 01/21/20 17:47 From Ceftin Allergy Unknown UNKNOWN Uncoded 12/23/19 16:20 Review of Systems Review of Systems Pertinent positives and negatives as stated in HPI 10 point review of systems is otherwise negative. Physical Exam Vital Signs: Vital Signs: Last Vital Signs Temp 99.0 F 11/19/20 23:07 Pulse 78 11/19/20 23:07 Resp 16 11/19/20 23:07 BP 108/57 L 11/19/20 23:07 Pulse Ox 99 11/19/20 23:07 Body Mass Index 44.5 VITAL SIGNS: Reviewed. GENERAL: Well developed, well nourished, in no acute distress. HEAD: Normocephalic/atraumatic EYES: PERRLA, EOMI OROPHARYNX: no oral lesions noted, posterior pharynx clear and non-erythematous without noted tonsillar enlargement/erythema/exudates NECK: Supple, no adenopathy LUNGS: Normal breath sounds. No adventitious sounds or accessory muscle use. SpO2<99>, tenderness when lateral left chest wall was auscultated CARDIOVASCULAR: Regular rate and rhythm without noted murmurs ABDOMEN: Obese, Soft, diffusely tender,, non-distended with bowel sounds, body habitus limits exam SKIN: Inspection of the skin reveals no rashes NEUROLOGIC: Alert and oriented x 4. Strength and sensation to light touch were grossly intact x 4. Course Course Course Narrative: 24-year-old female with history and clinical presentation concerning for colitis, gastroenteritis and less likely cholecystitis/appendicitis but possible UTI. Review of all investigations without significant findings and patient treated empirically for suspected gastroenteritis. All results discussed with her and her boyfriend at bedside. Patient was discharged home in stable condition. MDM - Abdominal Pain Lab Data Result diagrams: 11/19/20 23:27 11/19/20 23:27 Labs: Lab Results 11/19/20 11/19/20 11/19/20 Range/Units 23:27 23:27 23:27 WBC 11.1 H (4.8-10.8) X10*3/uL RBC 3.99 L (4.20-5.50) X10*6/uL Hgb 12.5 (12.0-16.0) g/dl Hct 35.6 L (37-47) % MCV 89.2 (80-98) fL MCH 31.3 (27.0-33.0) pg MCHC 35.1 H (31.0-35.0) g/dl RDW 11.9 (11.0-16.0) % Plt Count 274 (160-400) X10*3/uL MPV 8.6 L (9.4-12.3) fL Immature Gran % (Auto) 0.2 (0.0-0.4) % Neut % (Auto) 66.7 (45-73) % Lymph % (Auto) 25.9 (20-40) % [place] % (Auto) 5.7 (2-11) % Eos % (Auto) 1.2 (0-4) % Baso % (Auto) 0.3 (0-2) % Lymph # (Auto) 2.9 (1.2-4.9) X10*3/uL [place] # (Auto) 0.6 (0.1-1.2) X10*3/uL Eos # (Auto) 0.1 (0.0-0.4) X10*3/uL Baso # (Auto) 0.0 (0.0-0.2) X10*3/uL Abs Immat Gran (auto) 0.02 (0.00-0.03) X10*3/uL Absolute Neuts (auto) 7.4 (2.0-8.3) X10*3/uL Absolute Nucleated RBC 0.000 (0.0-0.012) X10*3/uL Nucleated RBC % (auto) 0.0 (0.0-0.2) /100WBC Sodium 142 (135-145) mmol/L Potassium 3.6 D (3.3-5.1) mmol/L Chloride 107 (96-108) mmol/L Carbon Dioxide 27 (22-29) mmol/L Anion Gap 12 (12-20) BUN 12 (9-16) mg/dL Creatinine 1.12 (0.5-1.4) mg/dL Estim Creat Clear Calc 82.5 Estimated GFR 59 Random Glucose 69 (60-115) mg/dL Calcium 9.4 (8.4-10.2) mg/dL Total Bilirubin 0.8 (0.0-1.0) mg/dL AST 17 (5-31) U/L ALT 14 (0-31) U/L Alkaline Phosphatase 62 (39-117) U/L Total Protein 6.8 (6.5-8.0) g/dL Albumin 4.0 (3.5-5.0) g/dL Lipase 53 (8-78) U/L Beta HCG, Quant < 2 mIU/mL Urine Color YELLOW Urine Appearance HAZY Urine pH 6.0 (5.0-8.0) Ur Specific [place] 1.025 (1.005-1.025) Urine Protein NEG (NEG-TRACE) MG/DL Urine Glucose (UA) NEG (NEG) MG/DL Urine Ketones NEG (NEG) MG/DL Urine Blood 3+ H (NEG) Urine Nitrite NEG (NEG) Ur Leukocyte Esterase NEG (NEG) Urine RBC 30-49 H (0) /HPF Urine WBC 0 (0-4) /HPF Ur Squamous Epith Cells 2+ /LPF Urine Bacteria TRACE /LPF Urine Mucus 2+ /LPF Urine Test COVID-19 (MULU) (Negative) COVID-19 Clin Com 11/19/20 11/20/20 Range/Units 23:27 01:35 WBC (4.8-10.8) X10*3/uL RBC (4.20-5.50) X10*6/uL Hgb (12.0-16.0) g/dl Hct (37-47) % MCV (80-98) fL MCH (27.0-33.0) pg MCHC (31.0-35.0) g/dl RDW (11.0-16.0) % Plt Count (160-400) X10*3/uL MPV (9.4-12.3) fL Immature Gran % (Auto) (0.0-0.4) % Neut % (Auto) (45-73) % Lymph % (Auto) (20-40) % [place] % (Auto) (2-11) % Eos % (Auto) (0-4) % Baso % (Auto) (0-2) % Lymph # (Auto) (1.2-4.9) X10*3/uL [place] # (Auto) (0.1-1.2) X10*3/uL Eos # (Auto) (0.0-0.4) X10*3/uL Baso # (Auto) (0.0-0.2) X10*3/uL Abs Immat Gran (auto) (0.00-0.03) X10*3/uL Absolute Neuts (auto) (2.0-8.3) X10*3/uL Absolute Nucleated RBC (0.0-0.012) X10*3/uL Nucleated RBC % (auto) (0.0-0.2) /100WBC Sodium (135-145) mmol/L Potassium (3.3-5.1) mmol/L Chloride (96-108) mmol/L Carbon Dioxide (22-29) mmol/L Anion Gap (12-20) BUN (9-16) mg/dL Creatinine (0.5-1.4) mg/dL Estim Creat Clear Calc Estimated GFR Random Glucose (60-115) mg/dL Calcium (8.4-10.2) mg/dL Total Bilirubin (0.0-1.0) mg/dL AST (5-31) U/L ALT (0-31) U/L Alkaline Phosphatase (39-117) U/L Total Protein (6.5-8.0) g/dL Albumin (3.5-5.0) g/dL Lipase (8-78) U/L Beta HCG, Quant mIU/mL Urine Color Urine Appearance Urine pH (5.0-8.0) Ur Specific [place] (1.005-1.025) Urine Protein (NEG-TRACE) MG/DL Urine Glucose (UA) (NEG) MG/DL Urine Ketones (NEG) MG/DL Urine Blood (NEG) Urine Nitrite (NEG) Ur Leukocyte Esterase (NEG) Urine RBC (0) /HPF Urine WBC (0-4) /HPF Ur Squamous Epith Cells /LPF Urine Bacteria /LPF Urine Mucus /LPF Urine Test Cancelled COVID-19 (MULU) Negative (Negative) COVID-19 Clin Com See Note Discharge Plan Discharge Clinical Impression: Gastroenteritis Patient Disposition: Home, Self-Care Instructions: Gastroenteritis (ED) Additional Instructions: 1. Resume all home medications as prescribed. 2. Increase water intake. 3. Follow-up with your primary care provider tomorrow morning. Return to the ER for acute worsening of symptoms. Prescriptions: No Action nitrofurantoin monohyd/m-cryst [Macrobid] 100 mg capsule 100 mg PO Q12H 5 Days Qty: 10 RF: 0 acetaminophen-codeine 300-30 mg tablet 1 tab PO Q8H PRN (Reason: pain) 3 Days Qty: 9 RF: 0 acetaminophen [Tylenol Extra Strength] 500 mg tablet 500 mg PO Q6H PRN (Reason: pain or fever) Qty: 20 RF: 0 meclizine 25 mg tablet 25 mg PO TID PRN (Reason: dizziness) Qty: 14 RF: 0 viaclwvtvz-eekjznqdnrfxg-jaxp [Fioricet] 50-300-40 mg capsule 1 cap PO Q8H PRN (Reason: pain) Qty: 7 RF: 0 nitrofurantoin monohyd/m-cryst [Macrobid] 100 mg capsule 100 mg PO Q12H 5 Days Qty: 10 RF: 0 famotidine [Pepcid] 20 mg tablet 20 mg PO DAILY Qty: 30 RF: 3 Referrals: Rosi Altamirano [Primary Care Provider] - 2 days (Re-evaluation) ON LICENSE OF [facility] Past Medical History Source: nursing notes reviewed Medical History Fibromyalgia Hearing impaired Lesion of liver Surgical History [place] teeth removed Social History Social History Alcohol intake: never Advance Directives: No Advance Directives Information Provided: No
[2020-11-19 23:07] VITALS: BP 108/57; PULSE 78; RESP 16; TEMP 37.2; O2SAT 99
[2020-11-19 23:34] LABS: MANUAL DIFF FLAG NO
[2020-11-19 23:36] LABS: Glucose Urine UA NEG (NEG); Leukocyte Esterase Urine NEG (NEG); Nitrite Urine NEG (NEG); Specific Gravity - Urine 1.025 (1.005-1.025); UACC Culture Trigger NO; Urine Blood 3+ (NEG); Urine Ketones NEG (NEG); Urine Protein NEG (NEG-TRACE)
[2020-11-19 23:38] LABS: Basophils Percent Auto 0.3 % (0-2); Eosinophils Absolute Auto 0.1 X10*3/uL (0.0-0.4); Eosinophils Percent Auto 1.2 % (0-4); Hematocrit 35.6 % (37-47); Hemoglobin 12.5 g/dl (12.0-16.0); Imm Gran Abs Auto 0.02 X10*3/uL (0.00-0.03); Imm Gran Pct Auto 0.2 % (0.0-0.4); Lymphocytes Absolute Auto 2.9 X10*3/uL (1.2-4.9); Lymphocytes Percent Auto 25.9 % (20-40); Mean Corpuscular HGB Conc 35.1 g/dl (31.0-35.0); Mean Corpuscular Hemoglobin 31.3 pg (27.0-33.0); Mean Corpuscular Volume 89.2 fL (80-98); Mean Platelet Volume 8.6 fL (9.4-12.3); Monocytes Absolute Auto 0.6 X10*3/uL (0.1-1.2); Monocytes Percent Auto 5.7 % (2-11); Neutrophils Absolute Auto 7.4 X10*3/uL (2.0-8.3); Neutrophils Percent Auto 66.7 % (45-73); Platelet Count 274 X10*3/uL (160-400); Red Blood Count 3.99 X10*6/uL (4.20-5.50); Red Cell Distribution Width 11.9 % (11.0-16.0); White Blood Count 11.1 X10*3/uL (4.8-10.8)
[2020-11-19] MEDS: ondansetron HCL 4 MG/2 ML VIAL IVPUSH (23:40)
[2020-11-19 23:41] LABS: Appearance Urine HAZY; Color Urine YELLOW
[2020-11-19] MEDS: Acetaminophen 325 MG TABLET 975 MG PO (23:41)
[2020-11-19] MEDS: 0.9 % Sodium Chloride 1,000 ML 999 ML IV (23:41)
[2020-11-19 23:47] LABS: Bacteria Urine TRACE /LPF; Mucus Urine 2+ /LPF; RBC Urine 30-49 /HPF (0); Squamous Epithelial Cell Urine 2+ /LPF; WBC Urine 0 /HPF (0-4)
[2020-11-20 00:05] LABS: Alanine Aminotransferase 14 U/L (0-31); Alkaline Phosphatase 62 U/L (39-117); Anion Gap 12 (12-20); Aspartate Amino Transferase 17 U/L (5-31); Bilirubin Total 0.8 mg/dL (0.0-1.0); Blood Urea Nitrogen 12 mg/dL (9-16); Calcium 9.4 mg/dL (8.4-10.2); Carbon Dioxide 27 mmol/L (22-29); Chloride 107 mmol/L (96-108); Creatinine Clr Calc Pharmacy 82.5; Estimated Glomerular Filt Rate 59; Glucose Random 69 mg/dL (60-115); Lipase 53 U/L (8-78); Potassium 3.6 mmol/L (3.3-5.1); Sodium 142 mmol/L (135-145); Total Protein 6.8 g/dL (6.5-8.0)
[2020-11-20] MEDS: iohexoL 350 MG/ML 100 ML INFUS..BTL 85 ML IV (00:46)
[2020-11-20 01:26] LABS: HCG Quantitative < 2 mIU/mL
--- NOTE | 2020-11-20 01:31 | PC.NURSE ---
PT REPORTS THAT HE IS HAVING A DIFFICULT TIME URINATING. HE IS ABLE TO VOID 200 CC'S EVERY 2-3 HOURS. PT ASKING FOR A CATHETER, TO MAKE IT EASIER.
--- NOTE | 2020-11-20 01:32 | PC.NURSE ---
PT ABLE TO DRINK WATER AND KEEP IT DOWN. PT HAS 8 OZ OF WATER WHEN SHE TOOK HER TYLENOL.
[2020-11-20 02:03] LABS: COVID-19 Test Negative (Negative)
[2020-11-20 02:05] VITALS: BP 122/72; PULSE 78; RESP 16; O2SAT 98
== END 2020-11-20 03:05 | disposition home or self-care (01) ==
PROVIDERS: Emergency Provider Student in an Organized Health Care Education/Training Program; PCP Nurse Practitioner
DX: K52.9 Noninfective gastroenteritis and colitis, unspecified (principal); R10.9 Unspecified abdominal pain; Z79.899 Other long term (current) drug therapy; Z20.822 Contact with and (suspected) exposure to COVID-19
CPT/HCPCS: 36415; 74177; 80053; 81001; 83690; 84702; 85025; 87635; 96361; 96374; 99284; J2405; Q9967

== ENCOUNTER 2020-12-07 13:44 | Outpatient (REF) | payer MEDICAID, SELFPAY ==
--- NOTE | ~2020-12-07 | XR_ITS ---
EXAMINATION: XR ANKLE, RIGHT CLINICAL INFORMATION: Right ankle pain. COMPARISON: MRI of 11/17/2020 TECHNIQUE: AP, lateral, and mortise views of the right ankle. FINDINGS: There is no evidence of acute fracture or dislocation of the right ankle. No significant soft tissue swelling is appreciated. No ankle effusion is seen. Ankle mortise intact. There is a small tug lesion or previous fracture involving the dorsum of the navicular. There are small plantar and Achilles calcaneal spurs present. XR/XR ankle RT min 3V IMPRESSION: No acute fracture or dislocation of the right ankle. Calcaneal spurs.
== END 2020-12-07 13:45 | disposition home or self-care (01) ==
LOC: HO.HOSX 13:44
PROVIDERS: Visit Provider Physician Assistant
DX: S93.491A Sprain of other ligament of right ankle, initial encounter (principal); M77.50 Other enthesopathy of unspecified foot and ankle
CPT/HCPCS: 73610; 99202

== ENCOUNTER 2020-12-25 09:40 | Outpatient (REF) | payer MEDICAID, SELFPAY ==
--- NOTE | ~2020-12-25 | US_ITS ---
EXAMINATION: US ABDOMEN COMPLETE CLINICAL INFORMATION: Upper abdominal pain. COMPARISON: CT abdomen pelvis most recent 11/20/2020. Ultrasound abdomen complete most recent 09/13/2020. TECHNIQUE: Real-time imaging of the abdominal viscera. FINDINGS: PANCREAS: The head and body are normal. The tail is not well visualized due to bowel gas. ABDOMINAL AORTA: The proximal, mid, and distal segments are normal in caliber. INFERIOR VENA CAVA: Visualized portions are normal. LIVER: Liver echotexture is normal. There are 2 hyperechoic lesions in the right lobe of the liver measuring 1.5 x 1.5 x 1.3 cm and 0.7 x 0.6 x 0.4 cm. These are stable from most recent ultrasound and CT exams however are not seen on older remote exams. There are echogenic foci in the peripheral right lobe of the liver similar to prior exams likely related to postsurgical changes. No other focal liver lesion is seen. There is no biliary duct dilatation. GALLBLADDER: The gallbladder is physiologically distended. There is an 8 mm gallstone in the neck of the gallbladder. The gallbladder wall does not appear thickened or edematous. There is no pericholecystic fluid. COMMON BILE DUCT: Normal in caliber measuring 0.4 cm in diameter. RIGHT KIDNEY: Normal. No hydronephrosis. No renal calculi or focal parenchymal lesions. The kidney measures 9.6 cm in maximum dimension. LEFT KIDNEY: Normal. No hydronephrosis or renal calculi. The kidney measures 10.2 cm in maximum dimension. SPLEEN: Normal. The spleen measures 10.5 cm in maximum dimension. FREE FLUID: None. US/US abdomen complete IMPRESSION: 8 mm gallstone in the neck of the gallbladder. No ultrasound evidence of acute cholecystitis. Two hyperechoic lesions in the liver similar to most recent exams. These may represent benign hemangiomas. These are not seen on older more remote exams and could be further evaluated with liver MRI clinically indicated.
== END 2020-12-25 09:41 | disposition home or self-care (01) ==
LOC: HO.US 09:40
PROVIDERS: Visit Provider Nurse Practitioner
DX: R10.10 Upper abdominal pain, unspecified (principal)
CPT/HCPCS: 76700

== ENCOUNTER 2021-07-10 07:59 | Outpatient (REF) | payer MEDICAID, SELFPAY ==
--- NOTE | ~2021-07-10 | US_ITS ---
EXAMINATION: US ABDOMEN COMPLETE CLINICAL INFORMATION: Right upper quadrant pain. COMPARISON: Ultrasound abdomen complete 12/25/2020 and 09/13/2020. CT abdomen and pelvis 11/20/2020. TECHNIQUE: Real-time imaging of the abdominal viscera. FINDINGS: PANCREAS: The head and the body the pancreas is homogeneous in echotexture. The tail is obscured by overlying gas. ABDOMINAL AORTA: The proximal, mid, and distal segments are normal in caliber. INFERIOR VENA CAVA: Visualized portions are normal. LIVER: The liver is normal in size. The liver contour is normal. Parenchymal echogenicity is normal. There are 3 small echogenic lesions in the right lobe measuring 1.3 x 0.9 x 1.3 cm, 0.8 x 0.6 x 0.6 cm and 1.1 x 1.2 x 1.2 cm suggestive of small hemangiomas. There are a few echogenic foci in the peripheral right hepatic lobe likely postsurgical changes. There is no intrahepatic biliary duct dilatation seen. GALLBLADDER: The gallbladder is physiologically distended. Multiple mobile gallstones are present. There is a small echogenic stone in the neck of the gallbladder. No evidence of gallbladder wall thickening or pericholecystic fluid. COMMON BILE DUCT: Normal in caliber measuring 0.3 cm in diameter. RIGHT KIDNEY: Normal. No hydronephrosis. No renal calculi or focal parenchymal lesions. The kidney measures 10.2 cm in maximum dimension. LEFT KIDNEY: Normal. No hydronephrosis. No renal calculi or focal parenchymal lesions. The kidney measures 10.1 cm in maximum dimension. SPLEEN: Normal. The spleen measures 11.1 cm in maximum dimension. FREE FLUID: None. US/US abdomen complete IMPRESSION: Small echogenic foci in the peripheral right lobe likely postsurgical changes. At least 3 echogenic foci in the right hepatic lobe likely small hemangiomas. Only 2 were seen on the previous study. Rest of the abdominal ultrasound is unremarkable..
== END 2021-07-10 08:00 | disposition home or self-care (01) ==
LOC: HO.US 07:59
PROVIDERS: PCP Nurse Practitioner; Visit Provider Nurse Practitioner
DX: R10.11 Right upper quadrant pain (principal); R11.2 Nausea with vomiting, unspecified; K80.20 Calculus of gallbladder without cholecystitis without obstruction
CPT/HCPCS: 76700

== ENCOUNTER 2021-08-03 16:32 | Outpatient (REF) | payer MEDICAID, SELFPAY ==
--- NOTE | ~2021-08-03 | XR_ITS ---
EXAMINATION: RIGHT WRIST WITH SCAPHOID. CLINICAL INFORMATION: 2 weeks of severe right wrist pain. COMPARISON: None TECHNIQUE: 4 views. FINDINGS: There is no visible acute fracture, dislocation or subluxation seen. No bony erosive changes. The soft tissues are normal. XR/XR wrist RT w scaphoid IMPRESSION: Unremarkable right wrist exam.
== END 2021-08-03 16:33 | disposition home or self-care (01) ==
LOC: HO.XRAY 16:32
PROVIDERS: Absent Provider Nurse Practitioner; PCP Nurse Practitioner; Visit Provider Registered Nurse Community Health
DX: M25.531 Pain in right wrist (principal)
CPT/HCPCS: 73110

== ENCOUNTER 2021-12-21 22:45 | Emergency (ER) | payer MEDICAID, SELFPAY ==
--- NOTE | ~2021-12-21 | US_ITS ---
EXAMINATION: US OBSTETRICAL ULTRASOUND CLINICAL INFORMATION: Pain and bleeding COMPARISON: None. LMP: 10/25/2021. Gestational age by maternal dates is 8 weeks 2 days. Estimated date of delivery by maternal dates is 08/01/2022. TECHNIQUE: Ultrasound of the maternal pelvis is performed using transabdominal transducer. M-mode Doppler is also performed. FINDINGS: There is a single intrauterine gestational sac with visible yolk sac, embryo/fetus, and cardiac activity. Small subchorionic hematoma measures 2.1 x 1.2 x 0.5 cm.. HR: 155 beats per minute. CRL (crown rump length): 1.71 cm (8 weeks 2 days +/- 4 days). KATHERINE (estimated date of delivery): 08/01/2022 +/- 4 days. MATERNAL ADNEXA: The right maternal ovary measures 3.6 x 2.5 x 2.2 cm. 2.1 cm corpus luteum. Normal arterial and venous spectral waveforms. The left maternal ovary measures 3.6 x 2 x 2.8 cm. Normal arterial and venous spectral waveforms. There is no significant maternal adnexal mass. No maternal pelvic ascites. US/US OB <= 14 weeks fetus IMPRESSION: 1. Single intrauterine gestation with ultrasound gestational age of 8 weeks 2 days +/- 4 days. 2. Estimated date of delivery is 08/01/2022 +/- 4 days. 3. Small subchorionic hematoma.
--- NOTE | 2021-12-22 00:05 | ED_ITS ---
HPI - Abdominal Pain General Chief Complaint: Abdominal Pain Stated Complaint: abd pain Time Seen by Provider: 12/21/21 23:54 Source: patient and other (spouse) Mode of arrival: ambulatory Limitations: no limitations History of Present Illness HPI narrative: 26 yo female with hx of hearing impairment (prior miscarriage x 2) found out she is 2 months had US with IUP has suffered from nausea and pelvic cramping during the for the past week she has had more cramping, increased pink spotting, and some clear fluid leakage. She cannot see her OB until Friday. She takes zofran at home. MD elicited complaint: abdominal pain Pertinent past history: none Onset (ago): week(s) (1) Pain Consistency: intermittent Location: pelvis Severity: mild Quality: cramping Radiation: none Migration to: no migration Exacerbating factors: movement Relieving factors: nothing Context: history of similar episodes Associated symptoms: nausea, vomiting and other (spotting, leakage of fluids) Related Data Previous Rx's Medication Instructions Recorded nitrofurantoin 100 mg PO Q12H 5 days #10 caps 01/16/20 monohydrate/macrocrystals 100 mg capsule (Macrobid) acetaminophen 300 mg-codeine 30 mg 1 tab PO Q8H PRN pain 3 days #9 01/17/20 tablet tabs acetaminophen 500 mg tablet 500 mg PO Q6H PRN pain or fever 01/21/20 (Tylenol Extra Strength) #20 tabs [id number] 1 cap PO Q8H PRN pain #7 caps 07/01/20 50 mg-300 mg-40 mg capsule (Fioricet) nitrofurantoin 100 mg PO Q12H 5 days #10 caps 07/01/20 monohydrate/macrocrystals 100 mg capsule (Macrobid) famotidine 20 mg tablet (Pepcid) 20 mg PO DAILY #30 tabs 09/26/20 doxylamine succinate 25 mg tablet 25 mg PO BEDTIME PRN nausea and 12/22/21 vomiting #30 tabs promethazine 25 mg rectal 25 mg OR Q6H PRN nausea and 12/22/21 suppository vomiting #12 ea pyridoxine (vitamin B6) 25 mg 25 mg PO DAILY #30 tabs 12/22/21 tablet Allergies Allergy/AdvReac Type Severity Reaction Status Date / Time acetic acid Allergy Severe ANAPHYLAXIS Verified 12/22/21 01:05 FROM VINEGAR raspberry [RASPBERRY] Allergy Severe ANAPHYLAXIS Verified 12/22/21 01:05 turkey Allergy Severe ANAPHYLAXIS Verified 12/22/21 01:05 azithromycin [AZITHROMYCIN] Allergy Unknown VOMITING Verified 12/22/21 01:05 cefuroxime [Ceftin] Allergy Unknown vomiting Verified 12/22/21 01:05 clonidine [CLONIDINE] Allergy Unknown NAUSEA & Verified 12/22/21 01:05 VOMITING, vomiting dexlansoprazole Allergy Unknown UNKNOWN Verified 12/22/21 01:05 [From DEXILANT] Erythromycin Allergy Unknown vomiting Verified 12/22/21 01:05 methylphenidate Allergy Unknown UNKNOWN Verified 12/22/21 01:05 [Methylphenidate] nortriptyline [NORTRIPTYLINE] Allergy Unknown SWELLING Verified 12/22/21 01:05 pantoprazole [PANTOPRAZOLE] Allergy Unknown UNKNOWN Verified 12/22/21 01:05 penicillin V Allergy Unknown vomiting Verified 12/22/21 01:05 celecoxib [CELECOXIB] AdvReac Unknown NAUSEA & Verified 12/22/21 01:05 VOMITING erythromycin base AdvReac Unknown HIVES/VOMIT Verified 12/22/21 01:05 [ERYTHROMYCIN BASE] ING lorazepam [From ATIVAN] AdvReac Unknown AGITATION Verified 12/22/21 01:05 Penicillins [PENICILLINS] AdvReac Unknown STOMACH Verified 12/22/21 01:05 UPSET Epidural Needle Allergy Unknown Unknown Uncoded 01/21/20 17:47 From Ceftin Allergy Unknown UNKNOWN Uncoded 12/23/19 16:20 Review of Systems Review of Systems Constitutional : No Weight loss, No Fever, No Chills ENT/Mouth : No sore throat, No Rhinorrhea Eyes: No Swelling, No Redness Cardiovascular : No Chest Pain, No SOB, NoEdema Respiratory : No Cough, No Sputum, No Wheezing Gastrointestinal : Positive Nausea, Positive Vomiting, no Diarrhea, positive abdominal Pain, No Hematochezia, No Melena Genitourinary : No Dysuria, No Urinary Frequency, No Hematuria, No Urgency , pos pelvic pain, pos vag bleeding Musculoskeletal : No joint pain, No Myalgias, No Joint Swelling Skin : No Skin Lesions, No rash Neuro : No Weakness, No Numbness, No Dizziness, No Headache Psych : No Anxiety/Panic, No Depression Heme/Lymph: No Bruising, No Lymphadenopathy Endocrine : No Polyuria, No Polydipsia All other systems reviewed and are negative. [facility] Past Medical History Medical History Fibromyalgia Hearing impaired [place] of liver Surgical History [place] teeth removed Social History Social History (Updated 12/22/21 @ 00:31 by Jocelin Meade DO) Alcohol intake: never Patient Tobacco Use Status: Never used Tobacco Advance Directives: No Advance Directives Information Provided: No Current occupational status: student Physical Exam ED Vital Signs: Vital Signs - 24 hr 12/22/21 00:36 12/22/21 01:05 12/22/21 03:49 Temperature 98.1 F 98.2 F Pulse Rate 92 87 72 Respiratory Rate 23 H 22 H 15 Blood Pressure 105/47 L 106/47 L 117/71 Pulse Oximetry 98 97 100 Oxygen Delivery Method Room Air Room Air Room Air BMI result Body Mass Index 48.4 Appearance: Alert. Oriented X3. No acute distress. Eyes: Pupils equal, round and reactive to light. ENT: Pharynx normal. Neck: Normal inspection. Neck supple. CVS: Normal heart rate and rhythm. Pulses normal. Respiratory: No respiratory distress. Breath sounds normal. Abdomen: Soft and mild suprapubic ttp no rebound : os is closed no blood on exam Skin: Skin warm and dry. Normal skin color. Normal skin turgor. Extremities: No lower extremity edema. No calf ttp Neuro: Oriented X 3. No motor deficit. No sensory deficit. Course Course Course Narrative: feels better stable for DC at this time no bleeding MDM - Abdominal Pain MDM Narrative Medical decision making narrative: 26 yo female with hx of fibromyalgia and 2 prior miscarriages she is 2 months per her reports with prior US confirming IUP presents with spotting, leakage of fluid and n/v (not new issue since her dx) at this time will obtain labs, quant, UA, hydrate, anti-emetics and US to evaluate . Dispo per results and findings. Lab Data Result diagrams: 12/22/21 01:00 12/22/21 01:00 Labs: Lab Results 12/22/21 12/22/21 12/22/21 Range/Units 00:59 01:00 01:00 WBC 13.3 H (4.8-10.8) X10*3/uL RBC 3.89 L (4.20-5.50) X10*6/uL Hgb 12.2 (12.0-16.0) g/dl Hct 34.0 L (37.0-47.0) % MCV 87.4 (80.0-98.0) fL MCH 31.4 (27.0-33.0) pg MCHC 35.9 H (31.0-35.0) g/dl RDW 12.6 (11.0-16.0) % Plt Count 264 (160-400) X10*3/uL MPV 8.3 L (9.4-12.3) fL Immature Gran % (Auto) 0.3 (0.0-0.4) % Neut % (Auto) 72.7 (45-73) % Lymph % (Auto) 20.3 (20-40) % Tripp % (Auto) 5.4 (2-11) % Eos % (Auto) 1.1 (0-4) % Baso % (Auto) 0.2 (0-2) % Lymph # (Auto) 2.7 (1.2-4.9) X10*3/uL Tripp # (Auto) 0.7 (0.1-1.2) X10*3/uL Eos # (Auto) 0.1 (0.0-0.4) X10*3/uL Baso # (Auto) 0.0 (0.0-0.2) X10*3/uL Abs Immat Gran (auto) 0.04 H (0.00-0.03) X10*3/uL Absolute Neuts (auto) 9.7 H (2.0-8.3) x10*3/uL Absolute Nucleated RBC 0.000 (0.0-0.012) X10*3/uL Nucleated RBC % (auto) 0.0 (0.0-0.2) /100WBC Sodium 137 (135-145) mmol/L Potassium 3.9 (3.3-5.1) mmol/L Chloride 102 (96-108) mmol/L Carbon Dioxide 24 (22-29) mmol/L Anion Gap 15 (12-20) BUN 10 (9-16) mg/dL Creatinine 0.76 (0.5-1.4) mg/dL Estim Creat Clear Calc 120.8 Estimated GFR > 60 Random Glucose 89 (60-115) mg/dL Calcium 9.6 (8.4-10.2) mg/dL Magnesium 1.7 (1.6-2.6) mg/dL Total Bilirubin 0.4 (0.0-1.0) mg/dL Direct Bilirubin 0.2 (0.0-0.5) mg/dL AST 17 (5-31) U/L ALT 21 (0-31) U/L Alkaline Phosphatase 57 (39-117) U/L Total Protein 6.6 (6.5-8.0) g/dL Albumin 3.7 (3.5-5.0) g/dL Lipase 47 (8-78) U/L Beta HCG, Quant 246016 mIU/mL Urine Color Yellow Urine Appearance Clear Urine pH 6.5 (5.0-9.0) Ur Specific [place] <= 1.005 (1.005-1.025) Urine Protein Negative (Neg-Trace) mg/dL Urine Glucose (UA) Negative (Negative) mg/dL Urine Ketones Negative (Negative) mg/dL Urine Blood Negative (Negative) Urine Nitrite Negative (Negative) Ur Leukocyte Esterase Trace H (Negative) Urine RBC 0-2 (0-2) /HPF Urine WBC 0-5 (0-5) /HPF Ur Squamous Epith Cells 0-2 (0-2) /HPF Urine Bacteria None Seen (None Seen) Hyaline Casts 0-2 (0-2) /LPF COVID-19 (MULU) (Negative) COVID-19 Clin Com Blood Type 12/22/21 12/22/21 Range/Units 01:00 01:02 WBC (4.8-10.8) X10*3/uL RBC (4.20-5.50) X10*6/uL Hgb (12.0-16.0) g/dl Hct (37.0-47.0) % MCV (80.0-98.0) fL MCH (27.0-33.0) pg MCHC (31.0-35.0) g/dl RDW (11.0-16.0) % Plt Count (160-400) X10*3/uL MPV (9.4-12.3) fL Immature Gran % (Auto) (0.0-0.4) % Neut % (Auto) (45-73) % Lymph % (Auto) (20-40) % Tripp % (Auto) (2-11) % Eos % (Auto) (0-4) % Baso % (Auto) (0-2) % Lymph # (Auto) (1.2-4.9) X10*3/uL Tripp # (Auto) (0.1-1.2) X10*3/uL Eos # (Auto) (0.0-0.4) X10*3/uL Baso # (Auto) (0.0-0.2) X10*3/uL Abs Immat Gran (auto) (0.00-0.03) X10*3/uL Absolute Neuts (auto) (2.0-8.3) x10*3/uL Absolute Nucleated RBC (0.0-0.012) X10*3/uL Nucleated RBC % (auto) (0.0-0.2) /100WBC Sodium (135-145) mmol/L Potassium (3.3-5.1) mmol/L Chloride (96-108) mmol/L Carbon Dioxide (22-29) mmol/L Anion Gap (12-20) BUN (9-16) mg/dL Creatinine (0.5-1.4) mg/dL Estim Creat Clear Calc Estimated GFR Random Glucose (60-115) mg/dL Calcium (8.4-10.2) mg/dL Magnesium (1.6-2.6) mg/dL Total Bilirubin (0.0-1.0) mg/dL Direct Bilirubin (0.0-0.5) mg/dL AST (5-31) U/L ALT (0-31) U/L Alkaline Phosphatase (39-117) U/L Total Protein (6.5-8.0) g/dL Albumin (3.5-5.0) g/dL Lipase (8-78) U/L Beta HCG, Quant mIU/mL Urine Color Urine Appearance Urine pH (5.0-9.0) Ur Specific [place] (1.005-1.025) Urine Protein (Neg-Trace) mg/dL Urine Glucose (UA) (Negative) mg/dL Urine Ketones (Negative) mg/dL Urine Blood (Negative) Urine Nitrite (Negative) Ur Leukocyte Esterase (Negative) Urine RBC (0-2) /HPF Urine WBC (0-5) /HPF Ur Squamous Epith Cells (0-2) /HPF Urine Bacteria (None Seen) Hyaline Casts (0-2) /LPF COVID-19 (MULU) Negative (Negative) COVID-19 Clin Com See Note Blood Type B Positive Discharge Plan Discharge Clinical Impression: Nausea & vomiting Qualifiers: Vomiting type: unspecified Qualified Code(s): R11.2 - Nausea with vomiting, unspecified Subchorionic hematoma Qualifiers: Fetus number: single or unspecified fetus Trimester: unspecified trimester Qualified Code(s): O41.8X90 - Other specified disorders of amniotic fluid and membranes, unspecified trimester, not applicable or unspecified Patient Disposition: Home, Self-Care Instructions: Acute Nausea and Vomiting (ED), Subchorionic Hemorrhage (ED) Additional Instructions: return to ED for any worsening symptoms or concerns estimated date of delivery is august 01 2022 please follow up with your OBGYN blood type is B POSITIVE 1. Single intrauterine gestation with ultrasound gestational age of? 8 weeks 2 days +/- 4 days. 2. Estimated date of delivery is 08/01/2022 +/- 4 days. 3. Small subchorionic hematoma Prescriptions: New promethazine 25 mg suppository 25 mg OR Q6H PRN (Reason: nausea and vomiting) Qty: 12 0RF pyridoxine (vitamin B6) 25 mg tablet 25 mg PO DAILY Qty: 30 0RF doxylamine succinate 25 mg tablet 25 mg PO BEDTIME PRN (Reason: nausea and vomiting) Qty: 30 0RF No Action nitrofurantoin monohyd/m-cryst [Macrobid] 100 mg capsule 100 mg PO Q12H 5 Days Qty: 10 0RF Rx Instructions: must administer with a meal/food acetaminophen-codeine 300-30 mg tablet 1 tab PO Q8H PRN (Reason: pain) 3 Days Qty: 9 0RF acetaminophen [Tylenol Extra Strength] 500 mg tablet 500 mg PO Q6H PRN (Reason: pain or fever) Qty: 20 0RF vwbuzkxwbh-amcyoixgspyjh-qekh [Fioricet] 50-300-40 mg capsule 1 cap PO Q8H PRN (Reason: pain) Qty: 7 0RF nitrofurantoin monohyd/m-cryst [Macrobid] 100 mg capsule 100 mg PO Q12H 5 Days Qty: 10 0RF Rx Instructions: must administer with a meal/food famotidine [Pepcid] 20 mg tablet 20 mg PO DAILY Qty: 30 3RF Stand Alone Forms: Work/School Release
[2021-12-22 00:36] VITALS: BP 105/47; PULSE 92; RESP 23; O2SAT 98
[2021-12-22 01:05] VITALS: BP 106/47; PULSE 87; RESP 22; TEMP 36.7; O2SAT 97; BMI 48.4
[2021-12-22 01:06] LABS: MANUAL DIFF FLAG NO
[2021-12-22 01:08] LABS: Basophils Percent Auto 0.2 % (0-2); Eosinophils Absolute Auto 0.1 X10*3/uL (0.0-0.4); Eosinophils Percent Auto 1.1 % (0-4); Hemoglobin 12.2 g/dl (12.0-16.0); Imm Gran Abs Auto 0.04 X10*3/uL (0.00-0.03); Imm Gran Pct Auto 0.3 % (0.0-0.4); Lymphocytes Absolute Auto 2.7 X10*3/uL (1.2-4.9); Lymphocytes Percent Auto 20.3 % (20-40); Mean Corpuscular HGB Conc 35.9 g/dl (31.0-35.0); Mean Corpuscular Hemoglobin 31.4 pg (27.0-33.0); Mean Corpuscular Volume 87.4 fL (80.0-98.0); Mean Platelet Volume 8.3 fL (9.4-12.3); Monocytes Absolute Auto 0.7 X10*3/uL (0.1-1.2); Monocytes Percent Auto 5.4 % (2-11); Neutrophils Absolute Auto 9.7 x10*3/uL (2.0-8.3); Neutrophils Percent Auto 72.7 % (45-73); Platelet Count 264 X10*3/uL (160-400); Red Blood Count 3.89 X10*6/uL (4.20-5.50); Red Cell Distribution Width 12.6 % (11.0-16.0); White Blood Count 13.3 X10*3/uL (4.8-10.8)
[2021-12-22 01:09] LABS: Appearance Urine Clear; Color Urine Yellow; Glucose Urine UA Negative (Negative); Leukocyte Esterase Urine Trace (Negative); Nitrite Urine Negative (Negative); PH 6.5 (5.0-9.0); Specific Gravity - Urine <= 1.005 (1.005-1.025); UMIC TRIGGER UACC YES; Urine Blood Negative (Negative); Urine Ketones Negative (Negative); Urine Protein Negative (Neg-Trace)
[2021-12-22] MEDS: 0.9 % Sodium Chloride 1,000 ML 999 ML IVCONT (01:11)
[2021-12-22 01:14] LABS: Bacteria Urine None Seen (None Seen); Hyaline Casts Urine 0-2 /LPF (0-2); RBC Urine 0-2 /HPF (0-2); Squamous Epithelial Cell Urine 0-2 /HPF (0-2); WBC Urine 0-5 /HPF (0-5)
[2021-12-22 01:24] LABS: COVID-19 Test Negative (Negative)
[2021-12-22] MEDS: diphenhydrAMINE HCL 50 MG/ML VIAL 25 MG IVPUSH (01:24)
[2021-12-22] MEDS: Metoclopramide HCl 10 MG/2 ML VIAL IVPUSH (01:24)
--- NOTE | 2021-12-22 01:27 | PC.NURSE ---
pt a&ox3, hypotensive - other vss, 20G IV placed right AC, labs drawn, urine sample obtained, NaCl running, medicated per provider order. pt pending lab results. pt hard of hearing, communicates by lip reading.
[2021-12-22 01:31] LABS: Alanine Aminotransferase 21 U/L (0-31); Albumin Level 3.7 g/dL (3.5-5.0); Alkaline Phosphatase 57 U/L (39-117); Anion Gap 15 (12-20); Aspartate Amino Transferase 17 U/L (5-31); Bilirubin Direct 0.2 mg/dL (0.0-0.5); Bilirubin Total 0.4 mg/dL (0.0-1.0); Blood Urea Nitrogen 10 mg/dL (9-16); Calcium 9.6 mg/dL (8.4-10.2); Carbon Dioxide 24 mmol/L (22-29); Chloride 102 mmol/L (96-108); Creatinine Clr Calc Pharmacy 120.8; Estimated Glomerular Filt Rate > 60; Glucose Random 89 mg/dL (60-115); Lipase 47 U/L (8-78); Magnesium 1.7 mg/dL (1.6-2.6); Potassium 3.9 mmol/L (3.3-5.1); Sodium 137 mmol/L (135-145); Total Protein 6.6 g/dL (6.5-8.0)
--- NOTE | 2021-12-22 01:48 | PC.NURSE ---
per tech, pt had one episode of vomiting while trying to sit up small amount of emisis.
[2021-12-22 02:02] VITALS: BP 115/73; PULSE 81; O2SAT 100
[2021-12-22 03:49] VITALS: BP 117/71; PULSE 72; RESP 15; TEMP 36.8; O2SAT 100
== END 2021-12-22 05:49 | disposition home or self-care (01) ==
PROVIDERS: Emergency Provider Emergency Medicine; PCP Registered Nurse
DX: O34.81 Maternal care for other abnormalities of pelvic organs, first trimester (principal); N83.11 Corpus luteum cyst of right ovary; Z3A.08 8 weeks gestation of pregnancy
CPT/HCPCS: 76801; 80048; 80076; 81001; 83690; 83735; 84702; 85025; 86900; 86901; 87635; 96374; 96375; 99283; J1200; J2765

== ENCOUNTER 2021-12-25 21:29 | Emergency (ER) | payer MEDICAID, SELFPAY ==
[2021-12-25 22:15] VITALS: BP 103/51; PULSE 82; RESP 18; TEMP 36.7; O2SAT 99; BMI 48.4
== END 2021-12-26 00:46 | disposition left against medical advice (07) ==
PROVIDERS: Emergency Provider Emergency Medicine; PCP Advanced Practice Midwife
DX: O20.9 Hemorrhage in early pregnancy, unspecified (principal); Z3A.09 9 weeks gestation of pregnancy
CPT/HCPCS: 99281

== ENCOUNTER 2022-05-29 07:41 | Outpatient (REF) | payer MEDICAID, SELFPAY ==
--- NOTE | ~2022-05-29 | US_ITS ---
EXAMINATION: US ABDOMEN COMPLETE CLINICAL INFORMATION: Abdominal pain. COMPARISON: Ultrasound abdomen complete 07/10/2021 and 12/25/2020. CT abdomen and pelvis with contrast 11/20/2020. TECHNIQUE: Real-time imaging of the abdominal viscera. FINDINGS: PANCREAS: Normal. ABDOMINAL AORTA: The proximal, mid, and distal segments are normal in caliber. INFERIOR VENA CAVA: Visualized portions are normal. LIVER: The liver is normal in size. The liver contour is normal. Parenchymal echogenicity is normal. Redemonstration of 3 echogenic foci, one in the right hepatic lobe measuring up to 1.6 cm, slightly increased from prior study when it measured 1.3 cm, and second echogenic focus is measures 0.6 cm, not significantly changed from prior study and a third focus measures 0.9 cm, not significantly changed from prior study when it measured 1.2 cm. There is no intrahepatic biliary duct dilatation seen. GALLBLADDER: The gallbladder is physiologically distended. Multiple mobile gallstones are present. No evidence of gallbladder wall thickening or pericholecystic fluid. COMMON BILE DUCT: Normal in caliber measuring 0.2 cm in diameter. RIGHT KIDNEY: Normal. No hydronephrosis. No renal calculi or focal parenchymal lesions. The kidney measures 10.3 cm in maximum dimension. LEFT KIDNEY: Normal. No hydronephrosis. No renal calculi or focal parenchymal lesions. The kidney measures 10.9 cm in maximum dimension. SPLEEN: Normal. The spleen measures 11.2 cm in maximum dimension. FREE FLUID: None. US/US abdomen complete IMPRESSION: 1. Redemonstration of 3 echogenic foci within the liver, one in the right hepatic lobe measuring up to 1.6 cm, slightly increased from prior study when it measured 1.3 cm. These likely reflect hemangiomas in the absence of known neoplastic disease.. 2. Cholelithiasis, no sonographic findings of acute cholecystitis.
--- NOTE | 2022-05-29 09:00 | EMG_ITS ---
Please see scanned EMG / Nerve Conduction Report. MTDD
== END 2022-05-29 07:42 | disposition home or self-care (01) ==
LOC: HO.US 07:41
PROVIDERS: PCP Registered Nurse; Visit Provider Registered Nurse Community Health
DX: R10.33 Periumbilical pain (principal); R20.0 Anesthesia of skin; Z87.19 Personal history of other diseases of the digestive system
CPT/HCPCS: 76700; 95885; 95910

== ENCOUNTER 2022-06-26 09:44 | Outpatient (REF) | payer MEDICAID, SELFPAY | END 2022-06-26 09:45 | disposition home or self-care (01) | LOC: HO.XRAY 09:44 | PROVIDERS: PCP Nurse Practitioner; Visit Provider Internal Medicine Rheumatology | DX: M25.531 Pain in right wrist (principal); M79.7 Fibromyalgia; G56.01 Carpal tunnel syndrome, right upper limb | CPT/HCPCS: 36415; 85025; 85652; 86140; 99202 ==

== ENCOUNTER 2022-06-26 11:00 | Outpatient (REF) | payer MEDICAID, SELFPAY ==
[2022-06-26 13:45] LABS: MANUAL DIFF FLAG NO
[2022-06-26 13:54] LABS: Basophils Percent Auto 0.4 % (0-2); Eosinophils Absolute Auto 0.2 X10*3/uL (0.0-0.4); Eosinophils Percent Auto 2.5 % (0-4); Hematocrit 37.4 % (37.0-47.0); Hemoglobin 13.3 g/dl (12.0-16.0); Imm Gran Abs Auto 0.02 X10*3/uL (0.00-0.03); Imm Gran Pct Auto 0.3 % (0.0-0.4); Lymphocytes Absolute Auto 1.9 X10*3/uL (1.2-4.9); Lymphocytes Percent Auto 25.7 % (20-40); Mean Corpuscular HGB Conc 35.6 g/dl (31.0-35.0); Mean Corpuscular Hemoglobin 31.1 pg (27.0-33.0); Mean Corpuscular Volume 87.6 fL (80.0-98.0); Mean Platelet Volume 9.1 fL (9.4-12.3); Monocytes Absolute Auto 0.5 X10*3/uL (0.1-1.2); Monocytes Percent Auto 6.6 % (2-11); Neutrophils Absolute Auto 4.7 x10*3/uL (2.0-8.3); Neutrophils Percent Auto 64.5 % (45-73); Platelet Count 272 X10*3/uL (160-400); Red Blood Count 4.27 X10*6/uL (4.20-5.50); Red Cell Distribution Width 12.4 % (11.0-16.0); White Blood Count 7.3 X10*3/uL (4.8-10.8)
[2022-06-26 14:09] LABS: C Reactive Protein 0.26 mg/dL (< or = 0.50)
[2022-06-26 14:34] LABS: Erythrocyte Sedimentation Rate 11 MM/HR (0-20)
== END 2022-06-26 11:01 | disposition home or self-care (01) ==
LOC: HO.10HDL 11:00
PROVIDERS: Visit Provider Internal Medicine Rheumatology
DX: G89.29 Other chronic pain (principal); M25.539 Pain in unspecified wrist
CPT/HCPCS: 36415; 85025; 85652; 86140

== ENCOUNTER 2022-06-28 13:21 | Outpatient (REF) | payer MEDICAID, SELFPAY ==
--- NOTE | ~2022-06-28 | XR_ITS ---
EXAMINATION: XR WRIST, RIGHT CLINICAL INFORMATION: Pain. COMPARISON: Radiographs dated 08/03/2021. TECHNIQUE: PA, lateral, and oblique views of the right wrist. FINDINGS: The bones and soft tissues are normal. No fracture. Alignment is anatomic with normal joint spaces. No erosions or abnormal soft tissue calcifications. XR/XR wrist RT min 3V IMPRESSION: Normal right wrist.
[2022-06-28 15:23] LABS: Estimated Average Glucose 85 mg/dL; Hemoglobin A1c % 4.6 %
[2022-06-28 16:41] LABS: TSH reflex Free T4 1.21 uIU/mL (0.32-4.0)
[2022-06-28 16:56] LABS: CT PCR DETECTED (Not Detect.); NG PCR NOT DETECTED (Not Detect.)
[2022-06-30 06:08] LABS: Follicle Stimulating Hormone 5.2 mIU/mL
[2022-07-01 03:49] LABS: Syphilis Screen Nonreactive (Nonreactive)
[2022-07-01 04:11] LABS: HIV AB/AG Nonreactive (Nonreactive); HIV Num 1 0.08 S/CO (0.00-0.99); Hepatitis B Surface Antigen Negative (Negative); ~HepC Num1 0.09 S/CO (0.00-0.79); ~Hepatitis C Antibody Nonreactive (Nonreactive)
[2022-07-02 02:38] LABS: Rubella IgG Antibody 1.93 Index
[2022-07-02 14:04] LABS: Cardiolipin IgM Ab <2.0 MPL-U/mL
[2022-07-03 13:44] LABS: PTT (LAC) Screen 27 sec (<=40)
[2022-07-06 13:04] LABS: Factor V Leiden NEGATIVE
[2022-07-08 13:58] LABS: Prothrombin 20210A NEGATIVE
[2022-07-08 14:58] LABS: CF Ethnicity NG; Cystic Fibrosis NEGATIVE (NEGATIVE)
== END 2022-06-28 13:22 | disposition home or self-care (01) ==
LOC: HO.XRAY 13:21
PROVIDERS: Advanced Practice Midwife; Obstetrics & Gynecology; PCP Registered Nurse; Visit Provider Internal Medicine Rheumatology
DX: O26.891 Other specified pregnancy related conditions, first trimester (principal); M25.531 Pain in right wrist; N96 Recurrent pregnancy loss
CPT/HCPCS: 0353U; 36415; 73110; 81220; 81240; 81241; 82105; 83001; 83036; 84443; 85597; 85613; 85730; 86147; 86762; 86780; 86787; 86803; 87340; 87389

== ENCOUNTER 2022-07-05 10:26 | Observation (INO) | payer MEDICAID, SELFPAY ==
[2022-07-05] VITALS (7 sets, daily range): BP systolic 113–131; BP diastolic 50–79; PULSE 69–81; RESP 16–20; TEMP 36.6–37.1; O2SAT 95–100; BMI 44.4; BMI 47.5
--- NOTE | ~2022-07-05 | CT_ITS ---
EXAMINATION: CT ABDOMEN AND PELVIS WITHOUT CONTRAST CLINICAL INFORMATION: Abdominal pain, nausea and vomiting. COMPARISON: CT abdomen/pelvis 11/20/2020. TECHNIQUE: Multidetector volumetric imaging was performed from the superior aspect of the liver through the pubic symphysis. Sagittal and coronal reformatted images were obtained on the technologist's workstation. This CT examination was performed using dose optimization techniques as appropriate, variously including the following: *Automated exposure control *Adjustment of mA and/or kV according to patient size (this includes techniques or standardized protocols for targeted exams where dose is matched to indication/reason for exam; i.e. extremities or head) *Use of iterative reconstruction technique DLP: 891 mGy-cm FINDINGS: LUNG BASES: Limited examination secondary to motion. No focal consolidation or pleural effusion. LIVER, GALLBLADDER, AND BILIARY TREE: A subtle hypodensity in the right hepatic lobe (21:15) is unchanged compared to 11/20/2020. Calcification/surgical changes along the posterior surface of the right hepatic lobe (21:26) is unchanged compared to 11/20/2020. No discrete new liver lesion, however examination is very limited in the absence of IV contrast. Distended gallbladder without evidence of radiopaque calculi, wall thickening or pericholecystic fat stranding. No biliary ductal dilatation. PANCREAS: Limited noncontrast examination. No significant peripancreatic free fluid or fat stranding. SPLEEN: Limited noncontrast examination, unremarkable. ADRENAL GLANDS: No adrenal mass. KIDNEYS AND URETERS: Limited noncontrast examination. No nephrolithiasis or hydronephrosis. No perinephric fat stranding. BLADDER: Unremarkable. GASTROINTESTINAL TRACT: The stomach and the small bowel are nondilated. Normal appendix. Mild diverticulosis. No pericolonic inflammatory changes or evidence of bowel obstruction. ABDOMINAL WALL: No significant hernia is appreciated. LYMPH NODES: No lymphadenopathy by CT short axis size criteria. VASCULAR: Limited noncontrast examination. Abdominal aorta is of normal caliber. PELVIC VISCERA: The right ovary is not well delineated due to overlying small bowel. No discrete pelvic mass. No free fluid. OSSEOUS STRUCTURES: No acute or aggressive appearing osseous abnormalities. CT/CT abdomen pelvis wo IV con IMPRESSION: 1. No acute intra-abdominal or pelvic abnormalities to explain the patient's symptoms. 2. Mild diverticulosis but no evidence of acute diverticulitis. 3. Suboptimal evaluation of the ovaries, specifically the right ovary is not well visualized, if indicated, correlation with pelvic ultrasound could be obtained.
--- NOTE | ~2022-07-05 | XR_ITS ---
EXAMINATION: XR CHEST CLINICAL INFORMATION: Syncope. COMPARISON: Chest radiograph 01/16/2020. TECHNIQUE: Frontal view of the chest was obtained. FINDINGS: Normal appearance of the cardiomediastinal silhouette. No focal airspace opacity, pleural effusion or pneumothorax. No acute osseous abnormalities. The visualized upper abdomen is within normal limits. XR/XR chest 1V IMPRESSION: No acute cardiopulmonary findings.
--- NOTE | ~2022-07-05 | CT_ITS ---
EXAMINATION: CT CERVICAL SPINE WITHOUT CONTRAST CLINICAL INFORMATION: Neck pain status post fall. COMPARISON: None available. TECHNIQUE: Multiple axial images of the cervical spine were obtained without the administration of intravenous contrast. Coronal and sagittal reformatted images were obtained. This CT examination was performed using dose optimization techniques as appropriate, variously including the following: *Automated exposure control *Adjustment of mA and/or kV according to patient size (this includes techniques or standardized protocols for targeted exams where dose is matched to indication/reason for exam; i.e. extremities or head) *Use of iterative reconstruction technique DLP: 446.88 mGy-cm FINDINGS: There is straightening of the normal cervical lordosis with normal spinal alignment. Mild anterior osteophyte formation is seen from C4-5 to C6-7. The vertebral bodies and odontoid processes are intact. The neural foramina are patent. The facet joints are unremarkable. The spinous processes are intact. The cervical soft tissues are unremarkable. The thyroid gland is unremarkable. The visualized lung apices are unremarkable. CT/CT cervical spine wo IV con IMPRESSION: Straightening of the normal cervical lordosis may be secondary to positioning and/or muscle spasm. No acute abnormality.
--- NOTE | ~2022-07-05 | CT_ITS ---
EXAMINATION: CT HEAD WITHOUT CONTRAST CLINICAL INFORMATION: Syncope, status post fall, rule out intracranial abnormality. COMPARISON: 01/16/[address] scan. TECHNIQUE: Contiguous axial imaging was performed from the skull base to vertex without intravenous administration of contrast. Coronal and sagittal reformatted images were obtained. This CT examination was performed using dose optimization techniques as appropriate, variously including the following: *Automated exposure control *Adjustment of mA and/or kV according to patient size (this includes techniques or standardized protocols for targeted exams where dose is matched to indication/reason for exam; i.e. extremities or head) *Use of iterative reconstruction technique DLP: 446.88 mGy-cm FINDINGS: There is some limitation in the right temporoparietal region secondary to extensive metallic streak artifact from external devices. The cortical sulci are normal. The lateral ventricles are symmetrical. The third and fourth ventricles are in their normal midline position. The basilar and prepontine cisterns are unremarkable. There is no acute intra or extracerebral abnormality. There is no mass effect or midline shift. Sections through the bony calvarium are unremarkable. The paranasal sinuses are clear. The bony orbits and orbital contents are unremarkable. Mild anterior nasal septal deviation, apex the right is seen. Right mastoid postsurgical changes are seen with opacification of the visualized mastoid air cells. The left mastoid air cells are unremarkable. CT/CT head/brain wo IV con IMPRESSION: 1. No acute intracranial abnormality. 2. Right mastoid surgical changes/effusion.
--- NOTE | 2022-07-05 10:38 | ED.SYNCOPE ---
HPI - Syncope General Chief Complaint: Altered Mental Status Stated Complaint: Poss syncopal episode per EMS Source: patient, EMS and old records reviewed Mode of arrival: EMS History of Present Illness HPI narrative: 26-year-old female with a past medical history fibromyalgia, hearing impaired s/p cochlear implant, presenting to the ED via EMS from home for ?syncopal episode this morning. Per EMS mother reported hearing loud thud from upstairs, found patient on ground unresponsive. On EMS arrival patient was alert and oriented, intermittently answering questions. Patient reports remembering being nauseous and vomiting, otherwise does not remember incident. Reports headache at present & diffuse myalgias. Denies taking anticoagulation, CP/SOB, back pain, tongue biting or incontinence MD complaint: other Related Data Home Medications Medication Instructions Recorded Confirmed gabapentin 600 mg tablet 600 mg PO TID 06/26/22 07/05/22 risperidone 0.5 mg tablet 0.5 mg PO BEDTIME 06/26/22 07/05/22 atomoxetine 18 mg capsule 18 mg PO DAILY 07/05/22 07/05/22 (Strattera) doxycycline hyclate 100 mg capsule 100 mg PO BID 07/05/22 07/05/22 Allergies Allergy/AdvReac Type Severity Reaction Status Date / Time acetic acid Allergy Severe Anaphylaxis Verified 06/26/22 09:47 from Vinegar raspberry [RASPBERRY] Allergy Severe Anaphylaxis Verified 06/26/22 09:47 turkey Allergy Severe Anaphylaxis Verified 06/26/22 09:47 azithromycin [AZITHROMYCIN] Allergy Unknown Vomiting Verified 06/26/22 09:47 cefuroxime [From Ceftin] Allergy Unknown Vomiting Verified 06/26/22 09:47 clonidine [CLONIDINE] Allergy Unknown Nausea and Verified 06/26/22 09:47 Vomiting dexlansoprazole Allergy Unknown Unknown Verified 06/26/22 09:47 [From Dexilant] methylphenidate Allergy Unknown Unknown Verified 06/26/22 09:47 [Methylphenidate] nortriptyline [NORTRIPTYLINE] Allergy Unknown Swelling Verified 06/26/22 09:47 pantoprazole [PANTOPRAZOLE] Allergy Unknown Unknown Verified 06/26/22 09:47 penicillin V Allergy Unknown Vomiting Verified 06/26/22 09:47 celecoxib [CELECOXIB] AdvReac Unknown Nausea and Verified 06/26/22 09:47 Vomiting erythromycin base AdvReac Unknown Hives, Verified 06/26/22 09:47 [ERYTHROMYCIN BASE] Vomiting lorazepam [From Ativan] AdvReac Unknown Agitated Verified 06/26/22 09:47 Penicillins [PENICILLINS] AdvReac Unknown Stomach Verified 06/26/22 09:47 Upset Epidural Needle Allergy Unknown Unknown Uncoded 01/21/20 17:47 Review of Systems Review of Systems: Constitutional: No Fever, No Chills, No Fatigue, No Malaise ENT/Mouth: No Ear Pain, No Nasal Congestion, No sore throat Eyes: No Eye Pain, No Swelling, No Redness Cardiovascular: No Chest Pain, No SOB Respiratory: No Cough, No Sputum, No Dyspnea Gastrointestinal: + Nausea,+ Vomiting, No Diarrhea, No Constipation, +abdominal pain Genitourinary: No Dysuria, No Hematuria, No Urinary Incontinence/retention Musculoskeletal: No joint pain, + Myalgias, No Joint Swelling Skin: No Skin Lesions, No rash Neuro: No Weakness, No Numbness, No Paresthesias, + Loss of Consciousness, No Dizziness, No Headache Yes all other systems are reviewed and are negative Constitutional: Constitutional: Reports as per HPI Neurologic: Denies Abnormal speech present [facility] Past Medical History Attestation statement: The following information was validated with the patient. Medical History Cochlear implant in place Fibromyalgia Hearing impaired Lesion of liver Surgical History [place] teeth removed Social History Social History Alcohol intake: current Alcohol intake frequency: a few times a week Patient Tobacco Use Status: Never used Tobacco Smoked in Last 30 Days: No Use of substances other than those prescribed or required for medical reasons: No Any prior treatment program specific to substance use: No Advance Directives: No Advance Directives Information Provided: Yes Nutrition Risks: No Nutritional Risk Patient : No Current occupational status: student Physical Exam Vital Signs: Vital Signs: Last Vital Signs Temp 97.9 F 07/05/22 15:32 Pulse 71 07/05/22 17:56 Resp 16 07/05/22 17:56 BP 121/74 07/05/22 17:56 Pulse Ox 100 07/05/22 17:56 O2 Del Method Room Air 07/05/22 17:56 BMI result Body Mass Index 44.4 Const: Other: C-collar in place General: cooperative and no acute distress Orientation/consciousness: oriented to person and oriented to place Limitations: no limitations HEENT: Head: Yes normal to inspection and Yes atraumatic Ears: hearing grossly normal bilaterally General nose exam: Normal external nose present Face and sinus: Yes normal facial exam Mouth: Normal oral and palatal mucosa present Eyes: General: appearance normal, both eyes and all related structures Pupils: Equal, round and reactive pupils present EOM: EOMs intact bilaterally Neck: Neck: Yes normal visual inspection and Yes no meningeal signs Resp: Effort & Inspection: normal respiratory effort and no respiratory distress Auscultation: clear to auscultation bilaterally Cardio: Rate: regular rate Heart sounds: S1 normal heart sound present and S2 normal heart sound present GI: Inspection: Yes normal to inspection Palpation (GI): Soft to palpation, Tenderness to palpation present (GI) (Diffusely) with no rebound tenderness, no guarding and not rigid : General: Yes no CVA tenderness Back/Spine/Pelvis: Back: no CVA tenderness Skin: Rashes: no rashes Wounds: no wounds Neuro: General: oriented to person, oriented to place, tone normal, moves all extremities, no meningeal signs, no focal motor deficits and CN's II-XI intact bilaterally Cranial nerves: Yes CN's II-XII intact bilaterally, Yes Equal, round and reactive pupils present and Yes Bilaterally intact EOM present Speech: No Abnormal speech present Motor exam (neuro): 5/5 motor strength present throughout Extrem: Other: Diffuse joint tenderness General: Yes normal to inspection and Yes no pedal edema Course Course Course Narrative: -1214--no leukocytosis. Patient notably anemic with a hemoglobin of 9.1, hematocrit 25.7, platelets 149 >> patient reports currently being worked up for ?Bone marrow issue by multiple providers. Denies brbpr/melena or hematochezia. Patient refusing rectal exam to obtain occult stool -lactic acid negative, low suspicion for seizure. Initial troponin negative, labs otherwise reassuring -1442--2nd troponin equivocal, mi unlikely -Patient refusing to give urine -chest x-ray unremarkable CT head/brain wo IV con IMPRESSION: 1. No acute intracranial abnormality. 2. Right mastoid surgical changes/effusion. CT cervical spine wo IV con IMPRESSION: Straightening of the normal cervical lordosis may be secondary to positioning and/or muscle spasm. No acute abnormality. ? CT abdomen pelvis wo IV con IMPRESSION: 1.? No acute intra-abdominal or pelvic abnormalities to explain the patient's symptoms. 2.? Mild diverticulosis but no evidence of acute diverticulitis. 3.? Suboptimal evaluation of the ovaries, specifically the right ovary is not well visualized, if indicated, correlation with pelvic ultrasound could be obtained. > patient more awake and alert. Reports increasing bilateral lower extremity weakness/numbness x few weeks with recurrent falls at home. Patient is ambulating in the ED with slow steady gait. Bilateral patellar reflexes appreciated. Low suspicion for Guillian Bee or cauda equina. Plan to admit for further management Results discussed with patient including worrisome signs and symptoms and strict return precautions, and when to return to the emergency department. They verbalized understanding and feel safe for discharge at this time. Medications Administered Discontinued Medications Generic Name Dose Route Start Last Admin Trade Name Freq PRN Reason Stop Dose Admin Sodium Chloride 1,000 mls @ 999 mls/hr 07/05/22 10:45 07/05/22 11:55 Ns IV 07/05/22 11:45 Infused .Q1H1M CECILIA Infusion Ondansetron HCl 4 mg 07/05/22 10:39 07/05/22 10:54 Ondansetron Hcl 4 Mg/2 Ml Vial IVPUSH 07/05/22 10:40 4 mg ONCE ONE Administration Medical Decision Making Medical Decision Making MDM Narrative: 26-year-old female with a past medical history fibromyalgia, hearing impaired s/p cochlear implant, presenting to the ED via EMS from home for ?syncopal episode this morning. On exam vital signs stable, C-collar in place, A&O x2, alert and oriented, answering questions appropriately, diffuse joint tenderness, abdomen soft diffusely tender, no rebound or guarding. No evidence of trauma. No report incontinence or tongue biting. Concern for syncope vs ?Seizure. Rule out metabolic infectious etiologies. Low suspicion for ICH or fracture. Unlikely ACS/PE Plan: EKG, labs, UA, CXR, head/C-spine/abdomen/pelvis CT, orthostatics, re-evaluate Please refer to course for remaining clinical decision making, interpretation of labs/imaging results, and discussions with consultants and/or family members. Differential Diagnosis Differential Diagnoses: The differential diagnosis associated with the presentation includes As above Admission/Observation Consideration of admission/observation: Escalation of care including admission/observation considered Lab Data MDM Lab Attestation statement: I reviewed the patient's lab results. 07/05/22 10:50 07/05/22 10:50 Labs: Lab Results 07/05/22 07/05/22 07/05/22 Range/Units 10:50 10:50 10:50 WBC 5.6 (4.8-10.8) X10*3/uL RBC 2.89 L D (4.20-5.50) X10*6/uL Hgb 9.1 L D (12.0-16.0) g/dl Hct 25.7 L D (37.0-47.0) % MCV 88.9 (80.0-98.0) fL MCH 31.5 (27.0-33.0) pg MCHC 35.4 H (31.0-35.0) g/dl RDW 12.7 (11.0-16.0) % Plt Count 149 L D (160-400) X10*3/uL MPV 8.6 L (9.4-12.3) fL Immature Gran % (Auto) 0.2 (0.0-0.4) % Neut % (Auto) 74.0 H (45-73) % Lymph % (Auto) 18.8 L (20-40) % [place] % (Auto) 5.2 (2-11) % Eos % (Auto) 1.6 (0-4) % Baso % (Auto) 0.2 (0-2) % Lymph # (Auto) 1.1 L (1.2-4.9) X10*3/uL [place] # (Auto) 0.3 (0.1-1.2) X10*3/uL Eos # (Auto) 0.1 (0.0-0.4) X10*3/uL Baso # (Auto) 0.0 (0.0-0.2) X10*3/uL Abs Immat Gran (auto) 0.01 (0.00-0.03) X10*3/uL Absolute Neuts (auto) 4.2 (2.0-8.3) x10*3/uL Absolute Nucleated RBC 0.000 (0.0-0.012) X10*3/uL Nucleated RBC % (auto) 0.0 (0.0-0.2) /100WBC PT 12.0 (10.0-13.1) SEC INR 1.0 (0.9-1.1) Sodium 139 (135-145) mmol/L Potassium 4.2 (3.3-5.1) mmol/L Chloride 108 (96-108) mmol/L Carbon Dioxide 24 (22-29) mmol/L Anion Gap 11 L (12-20) BUN 14 (9-16) mg/dL Creatinine 0.94 (0.5-1.4) mg/dL Estim Creat Clear Calc 92.6 Estimated GFR > 60 Random Glucose 87 (60-115) mg/dL Lactic Acid (0.5-2.0) mmol/L Calcium 9.2 (8.4-10.2) mg/dL Magnesium 1.9 (1.6-2.6) mg/dL Total Bilirubin 1.3 H (0.0-1.0) mg/dL Direct Bilirubin 0.3 (0.0-0.5) mg/dL AST 20 (5-31) U/L ALT 15 (0-31) U/L Alkaline Phosphatase 58 (39-117) U/L Total Creatine Kinase 187 H (26-140) U/L Troponin I High Sens (<3.5-17.0) ng/L Total Protein 6.7 (6.5-8.0) g/dL Albumin 4.0 (3.5-5.0) g/dL Beta HCG, Quant < 2 mIU/mL Urine Color Urine Appearance Urine pH (5.0-9.0) Ur Specific [place] (1.005-1.025) Urine Protein (Neg-Trace) mg/dL Urine Glucose (UA) (Negative) mg/dL Urine Ketones (Negative) mg/dL Urine Blood (Negative) Urine Nitrite (Negative) Ur Leukocyte Esterase (Negative) Ethyl Alcohol < 10 mg/dL COVID-19 (MULU) (Negative) COVID-19 Clin Com 07/05/22 07/05/22 07/05/22 Range/Units 10:50 10:50 11:00 WBC (4.8-10.8) X10*3/uL RBC (4.20-5.50) X10*6/uL Hgb (12.0-16.0) g/dl Hct (37.0-47.0) % MCV (80.0-98.0) fL MCH (27.0-33.0) pg MCHC (31.0-35.0) g/dl RDW (11.0-16.0) % Plt Count (160-400) X10*3/uL MPV (9.4-12.3) fL Immature Gran % (Auto) (0.0-0.4) % Neut % (Auto) (45-73) % Lymph % (Auto) (20-40) % [place] % (Auto) (2-11) % Eos % (Auto) (0-4) % Baso % (Auto) (0-2) % Lymph # (Auto) (1.2-4.9) X10*3/uL [place] # (Auto) (0.1-1.2) X10*3/uL Eos # (Auto) (0.0-0.4) X10*3/uL Baso # (Auto) (0.0-0.2) X10*3/uL Abs Immat Gran (auto) (0.00-0.03) X10*3/uL Absolute Neuts (auto) (2.0-8.3) x10*3/uL Absolute Nucleated RBC (0.0-0.012) X10*3/uL Nucleated RBC % (auto) (0.0-0.2) /100WBC PT (10.0-13.1) SEC INR (0.9-1.1) Sodium (135-145) mmol/L Potassium (3.3-5.1) mmol/L Chloride (96-108) mmol/L Carbon Dioxide (22-29) mmol/L Anion Gap (12-20) BUN (9-16) mg/dL Creatinine (0.5-1.4) mg/dL Estim Creat Clear Calc Estimated GFR Random Glucose (60-115) mg/dL Lactic Acid 0.6 (0.5-2.0) mmol/L Calcium (8.4-10.2) mg/dL Magnesium (1.6-2.6) mg/dL Total Bilirubin (0.0-1.0) mg/dL Direct Bilirubin (0.0-0.5) mg/dL AST (5-31) U/L ALT (0-31) U/L Alkaline Phosphatase (39-117) U/L Total Creatine Kinase (26-140) U/L Troponin I High Sens < 3.5 (<3.5-17.0) ng/L Total Protein (6.5-8.0) g/dL Albumin (3.5-5.0) g/dL Beta HCG, Quant mIU/mL Urine Color Urine Appearance Urine pH (5.0-9.0) Ur Specific [place] (1.005-1.025) Urine Protein (Neg-Trace) mg/dL Urine Glucose (UA) (Negative) mg/dL Urine Ketones (Negative) mg/dL Urine Blood (Negative) Urine Nitrite (Negative) Ur Leukocyte Esterase (Negative) Ethyl Alcohol mg/dL COVID-19 (MULU) Negative (Negative) COVID-19 Clin Com See Note 07/05/22 07/05/22 Range/Units 13:47 18:13 WBC (4.8-10.8) X10*3/uL RBC (4.20-5.50) X10*6/uL Hgb (12.0-16.0) g/dl Hct (37.0-47.0) % MCV (80.0-98.0) fL MCH (27.0-33.0) pg MCHC (31.0-35.0) g/dl RDW (11.0-16.0) % Plt Count (160-400) X10*3/uL MPV (9.4-12.3) fL Immature Gran % (Auto) (0.0-0.4) % Neut % (Auto) (45-73) % Lymph % (Auto) (20-40) % [place] % (Auto) (2-11) % Eos % (Auto) (0-4) % Baso % (Auto) (0-2) % Lymph # (Auto) (1.2-4.9) X10*3/uL [place] # (Auto) (0.1-1.2) X10*3/uL Eos # (Auto) (0.0-0.4) X10*3/uL Baso # (Auto) (0.0-0.2) X10*3/uL Abs Immat Gran (auto) (0.00-0.03) X10*3/uL Absolute Neuts (auto) (2.0-8.3) x10*3/uL Absolute Nucleated RBC (0.0-0.012) X10*3/uL Nucleated RBC % (auto) (0.0-0.2) /100WBC PT (10.0-13.1) SEC INR (0.9-1.1) Sodium (135-145) mmol/L Potassium (3.3-5.1) mmol/L Chloride (96-108) mmol/L Carbon Dioxide (22-29) mmol/L Anion Gap (12-20) BUN (9-16) mg/dL Creatinine (0.5-1.4) mg/dL Estim Creat Clear Calc Estimated GFR Random Glucose (60-115) mg/dL Lactic Acid (0.5-2.0) mmol/L Calcium (8.4-10.2) mg/dL Magnesium (1.6-2.6) mg/dL Total Bilirubin (0.0-1.0) mg/dL Direct Bilirubin (0.0-0.5) mg/dL AST (5-31) U/L ALT (0-31) U/L Alkaline Phosphatase (39-117) U/L Total Creatine Kinase (26-140) U/L Troponin I High Sens < 3.5 (<3.5-17.0) ng/L Total Protein (6.5-8.0) g/dL Albumin (3.5-5.0) g/dL Beta HCG, Quant mIU/mL Urine Color Yellow Urine Appearance Clear Urine pH 7.0 (5.0-9.0) Ur Specific [place] 1.010 (1.005-1.025) Urine Protein Negative (Neg-Trace) mg/dL Urine Glucose (UA) Negative (Negative) mg/dL Urine Ketones Negative (Negative) mg/dL Urine Blood Negative (Negative) Urine Nitrite Negative (Negative) Ur Leukocyte Esterase Moderate (2+) H (Negative) Ethyl Alcohol mg/dL COVID-19 (MULU) (Negative) COVID-19 Clin Com Radiology Impression Discussion of test interpretation with radiology: I have reviewed the radiologist's reading. External Record Review External record reviewed: Inpatient record, Office record, Outpatient record, Prior outpatient labs, Prior outpatient radiology, Primary care record and Outside ED record Discharge Plan Discharge Clinical Impression: Syncope, Anemia, Frequent falls Patient Disposition: Admitted As Inpatient
--- NOTE | 2022-07-05 10:39 | ECG_ITS ---
Test Reason : SYNCOPE Blood Pressure : / mmHG Vent. Rate : 071 BPM Atrial Rate : 071 BPM P-R Int : 124 ms QRS Dur : 074 ms QT Int : 392 ms P-R-T Axes : 027 055 042 degrees QTc Int : 425 ms Normal sinus rhythm with sinus arrhythmia Normal ECG When compared with ECG of 21-JAN-2020 18:49, No significant change was found Referred By: Katarzyna Bray Electronically Signed By:DEVORA ADAMS
[2022-07-05] MEDS: 0.9 % Sodium Chloride 1,000 ML 999 ML IV (10:54)
[2022-07-05] MEDS: ondansetron HCL 4 MG/2 ML VIAL IVPUSH (10:54)
[2022-07-05 10:56] LABS: MANUAL DIFF FLAG NO
[2022-07-05 11:09] LABS: Basophils Percent Auto 0.2 % (0-2); Eosinophils Absolute Auto 0.1 X10*3/uL (0.0-0.4); Eosinophils Percent Auto 1.6 % (0-4); Hematocrit 25.7 % (37.0-47.0); Hemoglobin 9.1 g/dl (12.0-16.0); Imm Gran Abs Auto 0.01 X10*3/uL (0.00-0.03); Imm Gran Pct Auto 0.2 % (0.0-0.4); Lymphocytes Absolute Auto 1.1 X10*3/uL (1.2-4.9); Lymphocytes Percent Auto 18.8 % (20-40); Mean Corpuscular HGB Conc 35.4 g/dl (31.0-35.0); Mean Corpuscular Hemoglobin 31.5 pg (27.0-33.0); Mean Corpuscular Volume 88.9 fL (80.0-98.0); Mean Platelet Volume 8.6 fL (9.4-12.3); Monocytes Absolute Auto 0.3 X10*3/uL (0.1-1.2); Monocytes Percent Auto 5.2 % (2-11); Neutrophils Absolute Auto 4.2 x10*3/uL (2.0-8.3); Platelet Count 149 X10*3/uL (160-400); Red Blood Count 2.89 X10*6/uL (4.20-5.50); Red Cell Distribution Width 12.7 % (11.0-16.0)
[2022-07-05 11:14] LABS: Lactic Acid 0.6 mmol/L (0.5-2.0)
[2022-07-05 11:19] LABS: COVID-19 Test Negative (Negative); IDNOW Serial# 08D9AD1C
[2022-07-05 11:21] LABS: White Blood Count 5.6 X10*3/uL (4.8-10.8)
[2022-07-05 11:23] LABS: Alanine Aminotransferase 15 U/L (0-31); Alkaline Phosphatase 58 U/L (39-117); Anion Gap 11 (12-20); Aspartate Amino Transferase 20 U/L (5-31); Bilirubin Direct 0.3 mg/dL (0.0-0.5); Bilirubin Total 1.3 mg/dL (0.0-1.0); Blood Urea Nitrogen 14 mg/dL (9-16); Calcium 9.2 mg/dL (8.4-10.2); Carbon Dioxide 24 mmol/L (22-29); Chloride 108 mmol/L (96-108); Creatinine Clr Calc Pharmacy 92.6; Estimated Glomerular Filt Rate > 60; Ethanol < 10 mg/dL; Glucose Random 87 mg/dL (60-115); Magnesium 1.9 mg/dL (1.6-2.6); Potassium 4.2 mmol/L (3.3-5.1); Sodium 139 mmol/L (135-145); Total Protein 6.7 g/dL (6.5-8.0)
[2022-07-05 11:26] LABS: Troponin-I High Sensitivity < 3.5 ng/L (<3.5-17.0)
[2022-07-05 11:45] LABS: HCG Quantitative < 2 mIU/mL
--- NOTE | 2022-07-05 11:52 | PC.NURSE ---
Patient getting up and ambulating to bathroom with assist of significant other. Patient stating I will not give a urine, I can refuse, I will not do another test. Provider made aware.
--- NOTE | 2022-07-05 12:11 | PC.NURSE ---
Daughter updated on plan of care and transfer to [facility]. Patient remains resting in stretcher.
--- NOTE | 2022-07-05 13:43 | MHC.EDTECH ---
patient refusing to give tech and RN urine sample.
[2022-07-05 14:24] LABS: Troponin-I High Sensitivity < 3.5 ng/L (<3.5-17.0)
--- NOTE | 2022-07-05 17:02 | PM.IMHP ---
History of Present Illness Date of Service: 07/05/22 <TINO Muñoz - Last Filed: 07/05/22 19:09> Attending physician on admission: Vicente Davies <TINO Muñoz - Last Filed: 07/05/22 19:09> Chief Complaint: Syncopal episode <TINO Muñoz - Last Filed: 07/05/22 19:09> Pt is a 26-year-old female with a PMH significant for?fibromyalgia, hearing impairment s/p cochlear implant, anxiety/depression, and carpal tunnel syndrome of right wrist who presents to the ED with?a syncopal episode. Pt states symptoms began approximately 2 months ago when she felt numbness in her legs. Patient thought that she was having a normal fibromyalgia flare up, but symptoms worsened the last couple of weeks. Patient has experienced pins and needles in the bottom of her feet that have slowly traveled upper legs, which is new for her. Has felt occasionally lightheaded and dizzy the past few weeks. Patient states the past 3 days she has been having episodes where her legs will ?give out? and she will fall to the floor. This occurred 5-6 times, including falls in the shower and hallway. Patient denies a history of ever falling down before. Today patient noted that she felt nauseous and vomiting a lot, denies hematemesis, coffee-ground emesis. No fever, has chronic chills, no diarrhea. Pt then had an unwitnessed syncopal episode. Mother was downstairs at the time and heard a thud that brought her immediately upstairs to find the pt unresponsive. Pt denies a personal or family history of seizures. Patient also denies melena, dark school, hematochezia. Pt complains of chronic URQ pain. In the ED patient was afebrile, slightly hypotensive at 117/50. Labs were significant for H&H of 9.1/25.7 (down from 13.3/37.4 on 06/26/2022), thrombocytopenia of 149. Orthostatics negative. UA pending. Patient adamantly refused digital rectal exam, occult stool test pending. CXR showed no acute cardiopulmonary finding. CT?of abdomen pelvis was negative for acute intra-abdominal or pelvic abnormalities, mild diverticulosis with no evidence of acute diverticulitis. CT of cervical spine show no acute abnormality. CT of head showed no acute intracranial abnormality. EKG demonstrated normal sinus rhythm with sinus arrhythmia but no evidence of ST elevations or depressions. Pt was treated with ondansetron and IVF. Pt will be admitted to the hospital to observation for further evaluation of syncopal episode. <TINO Muñoz - Last Filed: 07/05/22 19:09> Review of Systems Review of Systems: Syncopal episode Numbness and tingling of legs bilaterally Nausea vomiting Lightheadedness and dizziness Frequent falls Denies hematochezia, melena No hematemesis, coffee-ground emesis Chronic right upper quadrant abdominal pain Denies chest pain/pressure, palpitations No SOB <TINO Muñoz - Last Filed: 07/05/22 19:09> Yes all other systems are reviewed and are negative <TINO Muñoz - Last Filed: 07/05/22 19:09> [facility] Medical History: Medical History Cochlear implant in place Fibromyalgia Hearing impaired Lesion of liver <TINO Muñoz - Last Filed: 07/05/22 19:09> Surgical History: Surgical History [place] teeth removed <TINO Muñoz - Last Filed: 07/05/22 19:09> Social History: Social History Household Members: Family Housing: Apartment Do you presently have visiting nurse or other home services: No Alcohol intake: current Alcohol intake frequency: a few times a week Patient Tobacco Use Status: Former Tobacco user Smoked in Last 30 Days: No Use of substances other than those prescribed or required for medical reasons: No Currently Displaying Signs/Symptoms of Drug Intoxication Withdrawal: No Any prior treatment program specific to substance use: No Have you been hit, kicked, punched, or otherwise hurt by someone within the past year? If so, by whom?: No Do you feel safe in your current relationship?: No Current Relationship Is there a partner from a previous relationship who is making you feel unsafe now?: No Are you made to feel afraid or neglected: No Advance Directives: No Advance Directives Information Provided: Yes Do you have thoughts of harming others: None Do you have a plan to hurt others: No Plan Recently lost weight without trying: Yes How much weight loss: Not applicable Eating poorly because of decreased appetite: No Nutrition screen score: 2 Nutrition Risks: No Nutritional Risk Patient : No : No Poor oral hygiene: No Current occupational status: student <TINO Muñoz - Last Filed: 07/05/22 19:09> Meds Allergies/Adverse reactions: Allergies Allergy/AdvReac Type Severity Reaction Status Date / Time acetic acid Allergy Severe Anaphylaxis Verified 06/26/22 09:47 from Vinegar raspberry [RASPBERRY] Allergy Severe Anaphylaxis Verified 06/26/22 09:47 turkey Allergy Severe Anaphylaxis Verified 06/26/22 09:47 azithromycin [AZITHROMYCIN] Allergy Unknown Vomiting Verified 06/26/22 09:47 cefuroxime [From Ceftin] Allergy Unknown Vomiting Verified 06/26/22 09:47 clonidine [CLONIDINE] Allergy Unknown Nausea and Verified 06/26/22 09:47 Vomiting dexlansoprazole Allergy Unknown Unknown Verified 06/26/22 09:47 [From Dexilant] methylphenidate Allergy Unknown Unknown Verified 06/26/22 09:47 [Methylphenidate] nortriptyline [NORTRIPTYLINE] Allergy Unknown Swelling Verified 06/26/22 09:47 pantoprazole [PANTOPRAZOLE] Allergy Unknown Unknown Verified 06/26/22 09:47 penicillin V Allergy Unknown Vomiting Verified 06/26/22 09:47 celecoxib [CELECOXIB] AdvReac Unknown Nausea and Verified 06/26/22 09:47 Vomiting erythromycin base AdvReac Unknown Hives, Verified 06/26/22 09:47 [ERYTHROMYCIN BASE] Vomiting lorazepam [From Ativan] AdvReac Unknown Agitated Verified 06/26/22 09:47 Penicillins [PENICILLINS] AdvReac Unknown Stomach Verified 06/26/22 09:47 Upset Epidural Needle Allergy Unknown Unknown Uncoded 01/21/20 17:47 <TINO Muñoz - Last Filed: 07/05/22 19:09> Active Medications: Current Medications Pharmacy Consult (Consult Rx Perform Med Rec) 1 each MISCELLANE ONCE STA Stop: 07/05/22 15:44 <TINO Muñoz - Last Filed: 07/05/22 19:09> Home medications: Home Medications Medication Instructions Recorded Confirmed Last Taken Type gabapentin 600 mg tablet 600 mg PO TID 06/26/22 07/05/22 07/05/22 09:00 History risperidone 0.5 mg tablet 0.5 mg PO BEDTIME 06/26/22 07/05/22 07/04/22 History atomoxetine 18 mg capsule 18 mg PO DAILY 07/05/22 07/05/22 07/05/22 History (Strattera) doxycycline hyclate 100 mg capsule 100 mg PO BID 07/05/22 07/05/22 07/05/22 History <TINO Muñoz - Last Filed: 07/05/22 19:09> Physical Exam Vital Signs and Narrative: Vital Signs: Last Vital Signs Temp 97.9 F 07/05/22 15:32 Pulse 69 07/05/22 15:32 Resp 20 07/05/22 15:32 BP 117/50 L 07/05/22 15:32 Pulse Ox 99 07/05/22 15:32 O2 Del Method Room Air 07/05/22 15:32 BMI result Body Mass Index 44.4 <TINO Muñoz - Last Filed: 07/05/22 19:09> Constitutional: Alert, in no acute distress. Mental Status: Oriented to person, place and time. Eyes: Pupils are equal, round, and reactive to light. Ear, Nose, and Throat: Oropharynx clear, mucous membranes moist. Ears and nose without deformities. Trachea midline. Respiratory: Clear to auscultation bilaterally. No wheezing, rales, or rhonchi. Cardiovascular: S1, S2 regular. No murmurs, rubs, or gallops. Gastrointestinal: Abdomen soft, non-distended. Mild RUQ tenderness. Normal bowel sounds. Neurologic: Cranial nerves II-XII are grossly intact bilaterally. No focal neurological deficits. Moves all extremities spontaneously. Skin: No rashes or lesions noted. Musculoskeletal: No cyanosis or clubbing. Extremities: No edema. Psychiatric: Normal mood and affect. <TINO Muñoz - Last Filed: 07/05/22 19:09> Results Labs CBC and Chem 7: 07/05/22 10:50 07/05/22 10:50 <TINO Muñoz - Last Filed: 07/05/22 19:09> Labs: Laboratory Results - last 24 hr 07/05/22 07/05/22 07/05/22 10:50 10:50 10:50 MCV 88.9 MCH 31.5 MCHC 35.4 H RDW 12.7 Plt Count 149 L D MPV 8.6 L Immature Gran % (Auto) 0.2 Neut % (Auto) 74.0 H Lymph % (Auto) 18.8 L [place] % (Auto) 5.2 Eos % (Auto) 1.6 Baso % (Auto) 0.2 Lymph # (Auto) 1.1 L [place] # (Auto) 0.3 Eos # (Auto) 0.1 Baso # (Auto) 0.0 Abs Immat Gran (auto) 0.01 Absolute Neuts (auto) 4.2 Absolute Nucleated RBC 0.000 Nucleated RBC % (auto) 0.0 PT 12.0 INR 1.0 Anion Gap 11 L Estim Creat Clear Calc 92.6 Estimated GFR > 60 Random Glucose 87 Lactic Acid Calcium 9.2 Magnesium 1.9 Total Bilirubin 1.3 H Direct Bilirubin 0.3 AST 20 ALT 15 Alkaline Phosphatase 58 Total Creatine Kinase 187 H Troponin I High Sens Total Protein 6.7 Albumin 4.0 Beta HCG, Quant < 2 Ethyl Alcohol < 10 COVID-19 ([facility]) [facility] Clin Com 07/05/22 07/05/22 07/05/22 10:50 10:50 11:00 MCV MCH MCHC RDW Plt Count MPV Immature Gran % (Auto) Neut % (Auto) Lymph % (Auto) [place] % (Auto) Eos % (Auto) Baso % (Auto) Lymph # (Auto) [place] # (Auto) Eos # (Auto) Baso # (Auto) Abs Immat Gran (auto) Absolute Neuts (auto) Absolute Nucleated RBC Nucleated RBC % (auto) PT INR Anion Gap Estim Creat Clear Calc Estimated GFR Random Glucose Lactic Acid 0.6 Calcium Magnesium Total Bilirubin Direct Bilirubin AST ALT Alkaline Phosphatase Total Creatine Kinase Troponin I High Sens < 3.5 Total Protein Albumin Beta HCG, Quant Ethyl Alcohol COVID-19 ([facility]) Negative COVID-19 Clin Com See Note 07/05/22 13:47 MCV MCH MCHC RDW Plt Count MPV Immature Gran % (Auto) Neut % (Auto) Lymph % (Auto) [place] % (Auto) Eos % (Auto) Baso % (Auto) Lymph # (Auto) [place] # (Auto) Eos # (Auto) Baso # (Auto) Abs Immat Gran (auto) Absolute Neuts (auto) Absolute Nucleated RBC Nucleated RBC % (auto) PT INR Anion Gap Estim Creat Clear Calc Estimated GFR Random Glucose Lactic Acid Calcium Magnesium Total Bilirubin Direct Bilirubin AST ALT Alkaline Phosphatase Total Creatine Kinase Troponin I High Sens < 3.5 Total Protein Albumin Beta HCG, Quant Ethyl Alcohol COVID-19 ([facility]) COVID-19 Clin Com <TINO Muñoz - Last Filed: 07/05/22 19:09> Imaging Radiologist's Impressions: Impressions Abdomen/Pelvis CT 07/05/22 12:13 IMPRESSION: 1. No acute intra-abdominal or pelvic abnormalities to explain the patient's symptoms. 2. Mild diverticulosis but no evidence of acute diverticulitis. 3. Suboptimal evaluation of the ovaries, specifically the right ovary is not well visualized, if indicated, correlation with pelvic ultrasound could be obtained. Cervical Spine CT 07/05/22 12:13 IMPRESSION: Straightening of the normal cervical lordosis may be secondary to positioning and/or muscle spasm. No acute abnormality. Head CT 07/05/22 12:13 IMPRESSION: 1. No acute intracranial abnormality. 2. Right mastoid surgical changes/effusion. Chest X-Ray 07/05/22 13:30 IMPRESSION: No acute cardiopulmonary findings. <TINO Muñoz - Last Filed: 07/05/22 19:09> Assessment and Plan (1) Syncope: Status: Acute <TINO Muñoz - Last Filed: 07/05/22 19:09> (2) Anemia: Status: Acute <TINO Muñoz - Last Filed: 07/05/22 19:09> Pt is a 26-year-old female with a PMH significant for?fibromyalgia, hearing impairment s/p cochlear implant, anxiety/depression, and carpal tunnel syndrome of right wrist who presents to the ED with?a syncopal episode this morning while at home. Patient will be admitted to observation on telemetry for further evaluation of syncopal episode. Syncopal episode Patient with 1 episode of syncope this morning Patient has been experiencing lightheadedness, dizziness, and numbness and tingling in legs bilaterally x 2-3 weeks, frequent falls x3 days Unclear etiology: Differential includes vasovagal, dehydration, orthostatics and anemia less likely Orthostatics negative IVF Monitor on telemetry Repeat CBC tomorrow Anemia Patient's H&H 9.1/25.7, down from 13 0.3/37.4 on 06/26/22 Unclear etiology: pt denies hematochezia, melena, hematemesis, coffee-ground emesis, no episodes of acute bleeding Patient refused digital rectal exam in the ED Check stool for occult blood Repeat CBC tomorrow morning Fibromyalgia Continue gabapentin Anxiety/depression Continue home meds Full Code Attending:?Dr. Davies DVT Prophylaxis: Pt ambulatory Patient will be admitted to observation on telemetry for further evaluation of syncopal episode. <TION Muñoz - Last Filed: 07/05/22 19:09> Pt is a 26-year-old female with a PMH significant for?fibromyalgia, hearing impairment s/p cochlear implant, anxiety/depression, and carpal tunnel syndrome of right wrist who presents to the ED with?a syncopal episode this morning while at home. Patient will be admitted to observation on telemetry for further evaluation of syncopal episode. Syncopal episode Patient with 1 episode of syncope this morning Patient has been experiencing lightheadedness, dizziness, and numbness and tingling in legs bilaterally x 2-3 weeks, frequent falls x3 days Unclear etiology: Differential includes vasovagal, dehydration, orthostatics and anemia less likely Orthostatics negative IVF Monitor on telemetry Repeat CBC tomorrow Anemia Patient's H&H 9.1/25.7, down from 13 0.3/37.4 on 06/26/22 Unclear etiology: pt denies hematochezia, melena, hematemesis, coffee-ground emesis, no episodes of acute bleeding Patient refused digital rectal exam in the ED Check stool for occult blood Repeat CBC tomorrow morning Fibromyalgia Continue gabapentin Anxiety/depression Continue home meds Full Code Attending:?Dr. Davies DVT Prophylaxis: Pt ambulatory Patient will be admitted to observation on telemetry for further evaluation of syncopal episode. <Vicente Davies MD - Last Filed: 07/07/22 12:02> Time Spent With Patient Time: Total time managing care of this patient today ____ minutes. <TINO Muñoz - Last Filed: 07/05/22 19:09> Quality Stroke Does the patient have a stroke diagnosis?: No <TINO Muñoz - Last Filed: 07/05/22 19:09> VTE Prior VTE?: No <TINO Muñoz - Last Filed: 07/05/22 19:09> VTE Risk Level:: Medical - low <TINO Muñoz - Last Filed: 07/05/22 19:09> VTE Device Contraindication: Treatment Not Indicated <TINO Muñoz - Last Filed: 07/05/22 19:09> VTE Drug Contraindication: Treatment Not Indicated <TINO Muñoz - Last Filed: 07/05/22 19:09>
--- NOTE | 2022-07-05 17:51 | PHA.MEDREC ---
Pharmacy Consult ? Medication Reconciliation Pharmacy has completed the medication reconciliation. Pt knows names of her medications and is able to give me a history of what she takes. She won't divulge reason for doxycycline use but states she is finished taking it on Friday (07/08/22). She does say that her last home dose of meds was this morning but she vomited shortly after taking them so she believes they all came back up.
[2022-07-05 18:20] LABS: Appearance Urine Clear; Color Urine Yellow; Glucose Urine UA Negative (Negative); Leukocyte Esterase Urine Moderate (2+) (Negative); Nitrite Urine Negative (Negative); UMIC TRIGGER UACC YES; Urine Blood Negative (Negative); Urine Ketones Negative (Negative); Urine Protein Negative (Neg-Trace)
[2022-07-05 19:48] LABS: Bacteria Urine None Seen (None Seen); Hyaline Casts Urine 0-2 /LPF (0-2); RBC Urine 0-2 /HPF (0-2); Squamous Epithelial Cell Urine 0-2 /HPF (0-2); WBC Urine 0-5 /HPF (0-5)
[2022-07-05] MEDS: risperiDONE 0.5 MG TABLET PO (20:06)
[2022-07-05] MEDS: Doxycycline Monohydrate 100 MG CAPSULE PO (20:06)
[2022-07-05] MEDS: Gabapentin 600 MG TABLET PO (20:06)
[2022-07-05] MEDS: Lactated Ringers 1,000 ML 100 ML IVCONT (20:06)
[2022-07-05] MEDS: Acetaminophen 325 MG TABLET 650 MG PO (20:06)
[2022-07-05] MEDS: 0.9 % Sodium Chloride Flush 3 ML SYRINGE IVFLUSH (20:07)
[2022-07-06] VITALS (9 sets, daily range): BP systolic 114–130; BP diastolic 55–80; PULSE 65–82; RESP 16–20; TEMP 35.8–37.2; O2SAT 96–98
[2022-07-06 06:40] LABS: Hematocrit 33.8 % (37.0-47.0); Hemoglobin 11.9 g/dl (12.0-16.0); Mean Corpuscular HGB Conc 35.2 g/dl (31.0-35.0); Mean Corpuscular Hemoglobin 31.2 pg (27.0-33.0); Mean Corpuscular Volume 88.5 fL (80.0-98.0); Mean Platelet Volume 8.8 fL (9.4-12.3); Platelet Count 204 X10*3/uL (160-400); Red Blood Count 3.82 X10*6/uL (4.20-5.50); Red Cell Distribution Width 13.1 % (11.0-16.0); White Blood Count 7.5 X10*3/uL (4.8-10.8)
[2022-07-06] MEDS: Gabapentin 600 MG TABLET PO ×3 (08:02→21:57)
[2022-07-06] MEDS: 0.9 % Sodium Chloride Flush 3 ML SYRINGE IVFLUSH ×2 (08:02→15:09)
[2022-07-06] MEDS: Doxycycline Monohydrate 100 MG CAPSULE PO ×2 (08:02→21:57)
[2022-07-06] MEDS: Acetaminophen 325 MG TABLET 650 MG PO ×2 (08:11→15:11)
--- NOTE | 2022-07-06 11:17 | ECG_ITS ---
Test Reason : chest pain Blood Pressure : / mmHG Vent. Rate : 084 BPM Atrial Rate : 084 BPM P-R Int : 136 ms QRS Dur : 078 ms QT Int : 356 ms P-R-T Axes : 012 038 032 degrees QTc Int : 420 ms Normal sinus rhythm with sinus arrhythmia Normal ECG When compared with ECG of 05-JUL-2022 10:54, No significant change was found Referred By: [facility] Electronically Signed By:DEVORA ADAMS
[2022-07-06] MEDS: traMADoL HCL 50 MG TABLET PO (12:49)
[2022-07-06] MEDS: risperiDONE 0.5 MG TABLET PO (21:57)
[2022-07-07 07:04] VITALS: BP 109/61; PULSE 80; RESP 18; TEMP 36.6; O2SAT 97
[2022-07-07] MEDS: Doxycycline Monohydrate 100 MG CAPSULE PO (09:18)
[2022-07-07] MEDS: Gabapentin 600 MG TABLET PO (09:18)
[2022-07-07] MEDS: Acetaminophen 325 MG TABLET 650 MG PO (09:19)
[2022-07-07] MEDS: 0.9 % Sodium Chloride Flush 3 ML SYRINGE IVFLUSH (09:20)
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
[2022-07-07 11:12] VITALS: BP 114/58; PULSE 85; RESP 18; TEMP 36.7; O2SAT 97
--- NOTE | 2022-07-07 12:06 | HO.PM.IMPN ---
Subjective Subjective Date of Service: 07/07/22 Interval History: f/u on vague multiple complaint Physical Exam Vital Signs: Vital Signs: Last Vital Signs Temp 98.1 F 07/07/22 11:12 Pulse 85 07/07/22 11:12 Resp 18 07/07/22 11:12 BP 114/58 L 07/07/22 11:12 Pulse Ox 97 07/07/22 11:12 O2 Del Method Room Air 07/07/22 11:12 BMI result Body Mass Index 47.5 Objective Data Active Medications Acetaminophen (Acetaminophen 325 Mg Tablet) 650 mg PO Q6H PRN PRN Reason: Pain, Mild (Pain Scale 1-3) Last Admin: 07/07/22 09:19 Dose: 650 mg Documented By: ALONSO Docusate Sodium (Docusate Sodium 100 Mg Capsule) 100 mg PO DAILY PRN PRN Reason: Constipation Doxycycline Monohydrate (Doxycycline Monohydrate 100 Mg Capsule) 100 mg PO BID [facility] Last Admin: 07/07/22 09:18 Dose: 100 mg Documented By: ALONSO Gabapentin (Gabapentin 600 Mg Tablet) 600 mg PO TID [facility] Last Admin: 07/07/22 09:18 Dose: 600 mg Documented By: ALONSO Non-Formulary Medication (Atomoxetine [Strattera]) 18 mg PO DAILY [facility] Risperidone (Risperidone 0.5 Mg Tablet) 0.5 mg PO BEDTIME [facility] Last Admin: 07/06/22 21:57 Dose: 0.5 mg Documented By: ALTON Sodium Chloride (0.9 % Sodium Chloride Flush 3 Ml Syringe) 3 ml IVFLUSH QSHIFT [facility] Last Admin: 07/07/22 09:20 Dose: 3 ml Documented By: ALONSO Labs 07/06/22 05:58 07/05/22 10:50 Assessment and Plan Plan Pt is a 26-year-old female with a PMH significant for?fibromyalgia, hearing impairment s/p cochlear implant, anxiety/depression, and carpal tunnel syndrome of right wrist who presents to the ED with?a syncopal episode this morning while at home. Patient will be admitted to observation on telemetry for further evaluation of syncopal episode. Syncopal episode--etiology unclear, no arrtymia noted, ecg is fine. No further episode, no further testing at this time. Anemia--anemia, H/H seems fine on repeat Fibromyalgia, numbness tingingling, in legs and other vague complaint Continue gabapentin neurology is recommending EMG and LP Anxiety/depression Continue home meds Full Code Attending:?Dr. Davies DVT Prophylaxis: Pt ambulatory Patient will be admitted to observation on telemetry for further evaluation of syncopal episode. Time Spent With Patient Time: Total time managing care of this patient today ____ minutes. Quality Stroke Does the patient have a stroke diagnosis?: No VTE Prior VTE?: No VTE Risk Level:: Medical - low VTE Device Contraindication: Treatment Not Indicated VTE Drug Contraindication: Treatment Not Indicated
[2022-07-07] MEDS: ondansetron HCL 4 MG/2 ML VIAL IVPUSH (12:49)
--- NOTE | 2022-07-07 13:34 | P.DS_ITS ---
DS: Providers Provider Date of Service: 07/07/22 Date of admission: 07/05/22 18:25 Primary care physician: HECTOR Sahu Consults: 07/06/22 16:05 Consult to Neurology Routine Consulting Provider: [facility] Reason for consultation: weakness, falls and numbness DS: Diagnosis Discharge Diagnosis (1) Syncope: Status: Acute (2) Anemia: Status: Acute DS: Summary Hospital Course Hospital Course: Chief Complaint: ? ? ? Syncopal episode?<TINO Muñoz - Last Filed: 07/05/22 19:09> ?Pt is a 26-year-old female with a PMH significant for?fibromyalgia, hearing impairment s/p cochlear implant, anxiety/depression, and carpal tunnel syndrome of right wrist who presents to the ED with?a syncopal episode. Pt states symptoms began approximately 2 months ago when she felt numbness in her legs.? Patient thought that she was having a normal fibromyalgia flare up, but symptoms worsened the last couple of weeks.? Patient has experienced pins and needles in the bottom of her feet that have slowly traveled upper legs, which is new for her.? Has felt occasionally lightheaded and dizzy the past few weeks. Patient states the past 3 days she has been having episodes where her legs will ?give out? and she will fall to the floor.? This occurred 5-6 times, including falls in the shower and hallway.? Patient denies a history of ever falling down before.? Today patient noted that she felt nauseous and vomiting a lot, denies hematemesis, coffee-ground emesis.? No fever, has chronic chills, no diarrhea. Pt then had an unwitnessed syncopal episode. Mother was downstairs at the time and heard a thud that brought her immediately upstairs to find the pt unresponsive. Pt denies a personal or family history of seizures.? Patient also denies melena, dark school, hematochezia. Pt complains of chronic URQ pain. In the ED patient was afebrile, slightly hypotensive at 117/50. Labs were significant for H&H of 9.1/25.7 (down from 13.3/37.4 on 06/26/2022), thrombocytopenia of 149. Orthostatics negative.? UA pending.? Patient adamantly refused digital rectal exam, occult stool test pending. CXR showed no acute cardiopulmonary finding. CT?of abdomen pelvis was negative for acute intra- abdominal or pelvic abnormalities, mild diverticulosis with no evidence of acute diverticulitis.? CT of cervical spine show no acute abnormality.? CT of head showed no acute intracranial abnormality. EKG demonstrated normal sinus rhythm with sinus arrhythmia but no evidence of ST elevations or depressions. Pt was treated with ondansetron and IVF. Pt will be admitted to the hospital to observation for further evaluation of syncopal episode. Hospital course: Patient was observed on cardiac telelmetry without any evidence of arrythmia, Dr. Escamilla (Neuroligist) saw her with the following recommendaiton Overall description of his symptoms and presentation is suggestive of a progressive neuropathy.? This needed to be investigated with EMG nerve conduction study and a lumbar puncture to check her spinal fluid glucose, protein, cells, oligo clonal bands, and IgG index.? These tests would help to determine if she has treatable neuropathy or not, specially because there is no obvious other reason for neuropathy in her case. I discussed the lumbar puncture with her and she doesn't want it done, at least not at this time, citing a bad experience with epidural once. She will follow through with epidural. PT saw her and recommends STR but she decline in favor of home PT Time Spent with Patient Time attestation: Total time managing care of this patient today ____ minutes. Discharge coordination time: Greater than 30 minutes Quality: Safe Use of Opioids Does Pt have an Active Cancer Diagnosis on the Problem List?: No Quality: Stroke Does the patient have a stroke diagnosis?: No Physical Exam Vital Signs: Vital Signs: Last Vital Signs Temp 98.1 F 07/07/22 11:12 Pulse 85 07/07/22 11:12 Resp 18 07/07/22 11:12 BP 114/58 L 07/07/22 11:12 Pulse Ox 97 07/07/22 11:12 O2 Del Method Room Air 07/07/22 11:12 BMI result Body Mass Index 47.5 Discharge Plan Discharge Anticipated Discharge Date/Time: 07/07/22 13:35 Patient Disposition: Home Health Service Discharge Diagnosis: Falls, numbers, tingling in limbs suspect neuropathy Referrals: Silvio Escamilla MD [Physician] - 1 Week (for emg) Sofy Cardenas FNP [Primary Care Provider] - 1 Week Discharge Medications: Continued doxycycline hyclate 100 mg capsule 100 mg PO BID Patient Comments: Last dose taken this morning was vomited up shortly after. Patient states she is scheduled to finish this on 07/08/22. atomoxetine [Strattera] 18 mg capsule 18 mg PO DAILY risperidone 0.5 mg tablet 0.5 mg PO BEDTIME gabapentin 600 mg tablet 600 mg PO TID Discharge Orders: Discharge Order (Routine); Ordered 07/07/22 Ordered By: Vicente Davies Diet: Advance to usual diet Activity on Discharge: As tolerated Stand Alone Forms: Patient Portal Discharge page Care Plan Goals: for work up for numbness, tingling in limbs Health Concerns: Fibromyalgia, numbness in legs, feet. falls, syncope Plan of Treatment: To follow up with Dr. Escamilla for EMG to to be done Ask your Doctor to put in refereal for Dr. Escamilla for EMG to be done Assessment: as above
--- NOTE | 2022-07-07 13:49 | W.MHC.F2F ---
Service Date Service Date: 07/07/22 Encounter Date of encounter: 07/07/22 Reasons for Services Signs and symptoms assessed: Falls, unsteady gait Reason for physical therapy: home safety and mobility and gait/transfer training Reason for occupational therapy: home safety and mobility and ADL training Homebound: Leaving the home is medically contraindicated at this time without the asist of a device and/or another person due th the listed conditions above and below. Reason homebound: unsteady gait / fall risk and poor balance / fall risk Homebound supporting statement: Homebound due to frequent falls, legs giving out, numbness and tingling in the feet and therefore needs the assitance of another person Certification: Based on the above findings, I certify that this patient is confined to the home and needs intermittent residential care, physical therapy and/or speech therapy, or continues to need occupational therapy. The patient is under my care, and I have initiated the establishment of the plan of care. The patient will be followed by a physician who will periodically review the plan of care. Time Spent With Patient Time: Total time managing care of this patient today ____ minutes.
--- NOTE | 2022-07-07 13:59 | MHC.CM.PN ---
DP: PT HAS BEEN MEDICALLY CLEARED FOR DC HOME WITH NEW [facility] FOR PT/OT SERVICES. PT IS NOT INTERESTED IN REHAB. MD AWARE. RN AWARE. FAMILY WILL TRANSPORT HOME.
== END 2022-07-07 15:13 | disposition home health service (06) ==
LOC: HO.ED 15:47 → HO.EDOVER 18:33 → HO.IMC 18:47
PROVIDERS: Physician Assistant; Admitting Provider Student in an Organized Health Care Education/Training Program; Emergency Provider Emergency Medicine Emergency Medical Services; PCP Registered Nurse; Visit Provider Internal Medicine
DX: R55 Syncope and collapse (principal); R20.2 Paresthesia of skin; R20.0 Anesthesia of skin; R29.6 Repeated falls; Z20.822 Contact with and (suspected) exposure to COVID-19; R51.9 Headache, unspecified; R11.2 Nausea with vomiting, unspecified; D64.9 Anemia, unspecified; M79.7 Fibromyalgia; F41.9 Anxiety disorder, unspecified; E66.9 Obesity, unspecified; Z68.41 Body mass index [BMI] 40.0-44.9, adult; Z87.891 Personal history of nicotine dependence; Z79.899 Other long term (current) drug therapy
CPT/HCPCS: 36415; 70450; 71045; 72125; 74176; 80048; 80076; 81001; 82077; 82550; 83605; 83735; 84484; 84702; 85025; 85027; 85610; 87635; 93005; 96361; 96374; 97161; 99222; 99285; J2405

== ENCOUNTER 2022-08-02 13:21 | Outpatient (RCR) | payer MEDICAID, SELFPAY | END 2022-09-04 10:00 | disposition home or self-care (01) | LOC: HO.PT 13:21 | PROVIDERS: PCP Registered Nurse; Visit Provider Otolaryngology | DX: R42 Dizziness and giddiness (principal) | CPT/HCPCS: 97161 ==

== ENCOUNTER 2022-11-04 09:44 | Outpatient (AMB) | payer MEDICAID, SELFPAY ==
[2022-11-04 09:49] VITALS: BP 143/97; PULSE 78; BMI 46.0
--- NOTE | 2022-11-04 09:49 | A.OFFVIS_ITS ---
Intake Vital Signs 11/04/22 09:49 Height 4 ft 11 in Weight 228 lb BMI 46.0 BP 143/97 H Blood Pressure Location Rt radial Position Sitting Pulse 78 Intake Visit Reasons: Gallstones Intake Note: Patient referred for gallstones. Reports gallstones have been present since age 16. Pain has been flaring for the past 6m. C/o vomiting and persistent nausea. Was prescribed zofran. 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 Accompanied by: Self / Same As Patient Allergies acetic acid Allergy (Severe, Verified 06/26/22 09:47) Anaphylaxis from Vinegar raspberry [RASPBERRY] Allergy (Severe, Verified 06/26/22 09:47) Anaphylaxis turkey Allergy (Severe, Verified 06/26/22 09:47) Anaphylaxis azithromycin [AZITHROMYCIN] Allergy (Unknown, Verified 06/26/22 09:47) Vomiting cefuroxime [From Ceftin] Allergy (Unknown, Verified 06/26/22 09:47) Vomiting clonidine [CLONIDINE] Allergy (Unknown, Verified 06/26/22 09:47) Nausea and Vomiting dexlansoprazole [From Dexilant] Allergy (Unknown, Verified 06/26/22 09:47) Unknown methylphenidate [Methylphenidate] Allergy (Unknown, Verified 06/26/22 09:47) Unknown nortriptyline [NORTRIPTYLINE] Allergy (Unknown, Verified 06/26/22 09:47) Swelling pantoprazole [PANTOPRAZOLE] Allergy (Unknown, Verified 06/26/22 09:47) Unknown penicillin V Allergy (Unknown, Verified 06/26/22 09:47) Vomiting celecoxib [CELECOXIB] Adverse Reaction (Unknown, Verified 06/26/22 09:47) Nausea and Vomiting erythromycin base [ERYTHROMYCIN BASE] Adverse Reaction (Unknown, Verified 06/26/22 09:47) Hives, Vomiting lorazepam [From Ativan] Adverse Reaction (Unknown, Verified 06/26/22 09:47) Agitated Penicillins [PENICILLINS] Adverse Reaction (Unknown, Verified 06/26/22 09:47) Stomach Upset Epidural Needle Allergy (Unknown, Uncoded 01/21/20 17:47) Unknown HPI HPI Comments History of Present Illness Details Patient presents with a several year history of which he describes as gallbladder pain. Her symptoms are right upper quadrant/epigastric pain radiating around to her back specially after fatty greasy meals. Patient otherwise is tolerating a diet. She has had history of intermittent constipation. She has never been jaundiced before. She had a sonogram which demonstrated cholelithiasis. Chart was reviewed, and patient evaluated Past surgical history is most noteworthy for laparoscopic liver biopsy in her youth. [facility] Medical History Cochlear implant in place Fibromyalgia Frequent falls Hearing impaired Lesion of liver Surgical History [place] teeth removed Social History (Updated 11/04/22 @ 09:54 by TERESITA Velásquez) Household Members: Family Housing: Apartment Do you presently have visiting nurse or other home services: No Alcohol intake: current Alcohol intake frequency: a few times a week Patient Tobacco Use Status: Former Tobacco user Cigarettes Per Day: 1 Current occupational status: student Physical Exam Vital Signs: Last Vital Signs Pulse 78 11/04/22 09:49 BP 143/97 H 11/04/22 09:49 BMI result Body Mass Index 46.0 Eyes Other: Anicteric Chest Other: Chest breath sounds bilaterally, HS 1 in 2 GI Other: Abdomen corpulent, soft, all laparoscopic scars well healed. Soft, benign. Assessment & Plan Assessment & Plan (1) Biliary colic: Code(s): K80.50 - Calculus of bile duct without cholangitis or cholecystitis without obstruction (2) Recurrent biliary colic: Code(s): K80.50 - Calculus of bile duct without cholangitis or cholecystitis without obstruction Plan Risks, benefits, alternative laparoscopic possible open cholecystectomy reviewed the patient and included but not limited to bleeding, infection, recurrence of symptoms, numbness, pain, scarring, bowel or bile duct injury or leak and the patient wishes to proceed. All questions were answered. Arrangements will be made for this on the day which is convenient for her. Tentatively will try for this , 11/07. Coding Level of Care Code New Pt Level 5 (83476) Diagnoses Biliary colic K80.50 Recurrent biliary colic K80.50
== END 2022-11-04 10:10 | disposition home or self-care (01) ==
PROVIDERS: PCP Registered Nurse; Referring Provider Registered Nurse; Visit Provider Surgery
DX: K80.50 Calculus of bile duct without cholangitis or cholecystitis without obstruction (principal)
CPT/HCPCS: 99205

== ENCOUNTER → 2022-11-04 09:44 | Outpatient (BNVA) | payer MEDICAID, SELFPAY | PROVIDERS: PCP Registered Nurse; Referring Provider Registered Nurse; Visit Provider Surgery | DX: K80.50 Calculus of bile duct without cholangitis or cholecystitis without obstruction (principal) | CPT/HCPCS: 99202 ==

== ENCOUNTER 2022-11-07 06:54 | Day surgery (SDC) | payer MEDICAID, SELFPAY ==
--- NOTE | 2022-11-06 16:54 | MHC.SHP ---
Pre-Procedural Eval Section A Date of Service: 11/06/22 The patient is an INPATIENT: No Changes since office visit: No Cold of Flu in the past 2 weeks, No New Medical Problems, No Changes in Medication and No Patient answered all questions The History & Physical has been completed within 30 days and I have reviewed it.: Yes Section B Chief Complaint: Calculus of bile duct without cholangitis or surendra Allergies: Allergies Allergy/AdvReac Type Severity Reaction Status Date / Time acetic acid Allergy Severe Anaphylaxis Verified 06/26/22 09:47 from Vinegar raspberry [RASPBERRY] Allergy Severe Anaphylaxis Verified 06/26/22 09:47 turkey Allergy Severe Anaphylaxis Verified 06/26/22 09:47 azithromycin [AZITHROMYCIN] Allergy Unknown Vomiting Verified 06/26/22 09:47 cefuroxime [From Ceftin] Allergy Unknown Vomiting Verified 06/26/22 09:47 clonidine [CLONIDINE] Allergy Unknown Nausea and Verified 06/26/22 09:47 Vomiting dexlansoprazole Allergy Unknown Unknown Verified 06/26/22 09:47 [From Dexilant] methylphenidate Allergy Unknown Unknown Verified 06/26/22 09:47 [Methylphenidate] nortriptyline [NORTRIPTYLINE] Allergy Unknown Swelling Verified 06/26/22 09:47 pantoprazole [PANTOPRAZOLE] Allergy Unknown Unknown Verified 06/26/22 09:47 penicillin V Allergy Unknown Vomiting Verified 06/26/22 09:47 celecoxib [CELECOXIB] AdvReac Unknown Nausea and Verified 06/26/22 09:47 Vomiting erythromycin base AdvReac Unknown Hives, Verified 06/26/22 09:47 [ERYTHROMYCIN BASE] Vomiting lorazepam [From Ativan] AdvReac Unknown Agitated Verified 06/26/22 09:47 Penicillins [PENICILLINS] AdvReac Unknown Stomach Verified 06/26/22 09:47 Upset Epidural Needle Allergy Unknown Unknown Uncoded 01/21/20 17:47 Plan I have reviewed the history and physical and performed a pertinent physical examination on my patient. No changes have occurred unless specified. Time Spent With Patient Time: Total time managing care of this patient today ____ minutes.
[2022-11-07] VITALS (18 sets, daily range): BP systolic 108–133; BP diastolic 41–88; PULSE 62–81; RESP 14–18; TEMP 36.1–36.5; O2SAT 96–100; BMI 46.0
[2022-11-07 07:28] LABS: UPreg QC Valid YES; Urine Pregnancy NEGATIVE (NEGATIVE)
[2022-11-07] MEDS: Lactated Ringers 1,000 ML 50 ML IVCONT (07:54)
--- NOTE | 2022-11-07 08:47 | P.CONAN_ITS ---
HPI - Anesthesia Eval Consult details Narrative: 26 yo female for cholycystectomy Neurology clearance on chart, no increased risk for surgery PMFSH Active Problems Active Problems: All Active Problems (Updated 11/04/22 @ 10:11 by Sridhar Rodrigez MD) Recurrent biliary colic (Acute) Biliary colic (Acute) Anemia (Acute) Wrist pain, chronic (Acute) Carpal tunnel syndrome of right wrist (Acute) Ankle bone spur (Acute) High ankle sprain of right lower extremity (Acute) [place] teeth removed (Acute) Lesion of liver (Acute) Hearing impaired (Acute) Fibromyalgia (Acute) Past Medical History Medical History Cochlear implant in place Fibromyalgia Frequent falls Hearing impaired Lesion of liver Family History Family history of problems with anesthesia: No Surgical History Surgical History [place] teeth removed History of Problems with Anesthesia: No Social History Social History (Updated 11/04/22 @ 09:54 by TERESITA Velásquez) Household Members: Family Housing: Apartment Do you presently have visiting nurse or other home services: No Alcohol intake: current Alcohol intake frequency: a few times a week Patient Tobacco Use Status: Current everyday Tobacco user Tobacco use type: Cigarette Cigarettes Per Day: 2 Date Education Initiated: 11/07/22 Use of substances other than those prescribed or required for medical reasons: Yes Are you DNR?: No Advance Directives: No Advance Directives Information Provided: Yes Current occupational status: student Meds Allergies Allergy/AdvReac Type Severity Reaction Status Date / Time acetic acid Allergy Severe Anaphylaxis Verified 06/26/22 09:47 from Vinegar raspberry [RASPBERRY] Allergy Severe Anaphylaxis Verified 06/26/22 09:47 turkey Allergy Severe Anaphylaxis Verified 06/26/22 09:47 azithromycin [AZITHROMYCIN] Allergy Unknown Vomiting Verified 06/26/22 09:47 cefuroxime [From Ceftin] Allergy Unknown Vomiting Verified 06/26/22 09:47 clonidine [CLONIDINE] Allergy Unknown Nausea and Verified 06/26/22 09:47 Vomiting dexlansoprazole Allergy Unknown Unknown Verified 06/26/22 09:47 [From Dexilant] methylphenidate Allergy Unknown Unknown Verified 06/26/22 09:47 [Methylphenidate] nortriptyline [NORTRIPTYLINE] Allergy Unknown Swelling Verified 06/26/22 09:47 pantoprazole [PANTOPRAZOLE] Allergy Unknown Unknown Verified 06/26/22 09:47 penicillin V Allergy Unknown Vomiting Verified 06/26/22 09:47 latex Allergy Anaphylaxis Verified 11/07/22 07:39 shellfish derived Allergy Anaphylaxis Verified 11/07/22 07:05 celecoxib [CELECOXIB] AdvReac Unknown Nausea and Verified 06/26/22 09:47 Vomiting erythromycin base AdvReac Unknown Hives, Verified 06/26/22 09:47 [ERYTHROMYCIN BASE] Vomiting lorazepam [From Ativan] AdvReac Unknown Agitated Verified 06/26/22 09:47 Penicillins [PENICILLINS] AdvReac Unknown Stomach Verified 06/26/22 09:47 Upset Epidural Needle Allergy Unknown Unknown Uncoded 01/21/20 17:47 Active Medications: Current Medications Lactated Ringer's (Lr) 1,000 mls @ 50 mls/hr IVCONT .Q20H CECILIA Last Admin: 11/07/22 07:54 Dose: 50 mls/hr Home Medications Medication Instructions Recorded Confirmed Last Taken Type gabapentin 600 mg tablet 600 mg PO TID 06/26/22 11/07/22 07/05/22 09:00 History atomoxetine 18 mg capsule 18 mg PO DAILY 07/05/22 11/07/22 07/05/22 History (Strattera) lurasidone 20 mg tablet (Latuda) 20 mg PO QAM 11/04/22 11/07/22 Unknown History topiramate 25 mg tablet 25 mg PO BID 11/07/22 11/07/22 11/07/22 History 25 mg Exam Exam Date and Time: November 07, 2022 0847 Height,Weight and Vital Signs: Height 4 ft 11 in Weight 103.419 kg Last Vital Signs Temp 96.9 F 11/07/22 07:18 Pulse 71 11/07/22 07:18 Resp 18 11/07/22 07:18 BP 116/80 11/07/22 07:18 Pulse Ox 98 11/07/22 07:18 O2 Del Method Room Air 11/07/22 07:18 Pertinent Lab Results Pertinent Lab Results: Laboratory Tests 11/07/22 07:10 Urine Test NEGATIVE Airway Mallampati Class: II TM Dist: >3cm Neck ROM: Full Loose/Missing/Broken Teeth: No Heart: rr normal S1S2 Lungs: cta Other: cochlear impant, bilateral hearing aides Assessment and Plan Assessment Anesthesia Assessment: Anesthesia Plan Discussed, Smoking Cess. Discussed and Chart Reviewed Final Anesthetic Review Family History of Problems with Anesthesia: No History of Problems with Anesthesia: No NPO: Yes ASA Class: III Final Preanesthetic Review: No Changes in Pt Med Stat, Meds/Allgs Chart Reviewed, Consent Obtained/Reviewed and Anes Risks/Benef Reviewed Patient Risk: Low Procedure Risk: Intermediate Anesthetic Plan Anesthetic Plan: GA Disposition: Standard PACU
--- NOTE | 2022-11-07 09:50 | W.PM.OPN ---
Operative Note Operative Note Date of Service: 11/07/22 Narrative: Preoperative diagnosis: [] recurrent biliary colic Postop diagnosis: [] same Procedure [] laparoscopic cholecystectomy Surgeon: [] Elia Product Marketer: [] TINO Fried Type of Anesthesia: [] general Indication for surgery: [] very corpulent abdomen. Gallbladder with marked omental and gastric adhesions to it. Findings: [] Patient is brought to the operating room, placed on operative table in supine position, after adequate level of general anesthesia was induced, the patient's abdomen was prepped and draped in usual sterile fashion. Using a supraumbilical curvilinear incision, Melchor technique was used to insufflate the abdominal cavity to 15 mm of CO2. Upper midline and right subcostal ports were placed under direct laparoscopic view, and the patient was placed in reverse Trendelenburg position, tilted to the left. Findings were as noted above. Gallbladder was grasped using laparoscopic graspers, and retracted superiorly and laterally. Omental and gastric occasions were taken off the gallbladder were its hilum was approached. Common bile duct was identified and preserved throughout the procedure. Cystic artery and cystic duct were each identified, circumferentially skeletonized, traced directly into the gallbladder, and critical view obtained. Each was clipped proximally x2, distally x1, and transected. Gallbladder was then cauterized from the gallbladder fossa using Bovie. Specimen was placed in an Endo-Catch bag, a retrieved through the umbilical port. Abdominal cavity was copiously irrigated, and secured hemostasis. All ports were removed under direct laparoscopic view. Wounds were closed in the following manner; umbilical wound is fascia reapproximated using interrupted 0 Vicryl sutures. Skin wounds were closed using subcuticular 4-0 Vicryl sutures followed by Steri-Strips and sterile dressings. The wounds were infiltrated 0.5% Marcaine at completion. Sponge, needle, and instrument counts reported correct. Patient tolerated the procedure well and emerged anesthesia in stable condition. EBL minimal
[2022-11-07] MEDS: oxyCODONE HCl Immed Release 5 MG TABLET PO (10:46)
[2022-11-07] MEDS: fentaNYL citrate/PF 100 MCG/2 ML VIAL 50 MCG IVPUSH (11:08)
[2022-11-07] MEDS: Acetaminophen 1,000 MG/100 ML PIGGYBACK 400 MG IV (12:57)
== END 2022-11-07 13:55 | disposition home or self-care (01) ==
PROVIDERS: PCP Registered Nurse; Visit Provider Surgery
PROC: 0FT44ZZ Resection of Gallbladder, Percutaneous Endoscopic Approach (ICD-10-PCS; CPT 47562; principal; 2022-11-07 08:30)
DX: K80.10 Calculus of gallbladder with chronic cholecystitis without obstruction (principal); K82.8 Other specified diseases of gallbladder; K76.9 Liver disease, unspecified; K59.00 Constipation, unspecified; M79.7 Fibromyalgia; H91.90 Unspecified hearing loss, unspecified ear; Z96.21 Cochlear implant status; Z91.81 History of falling; Z79.899 Other long term (current) drug therapy; Z88.0 Allergy status to penicillin; Z88.1 Allergy status to other antibiotic agents; Z88.8 Allergy status to other drugs, medicaments and biological substances; Z91.040 Latex allergy status; F17.210 Nicotine dependence, cigarettes, uncomplicated
CPT/HCPCS: 47562; 81025; 88304; J0131; J1885; J2250; J2405; J2550; J2795; J3010

== ENCOUNTER → 2022-11-07 06:54 | Outpatient (BNV) | payer MEDICAID, SELFPAY | PROVIDERS: PCP Registered Nurse; Visit Provider Surgery | DX: K80.50 Calculus of bile duct without cholangitis or cholecystitis without obstruction (principal) | CPT/HCPCS: 47562 ==

== ENCOUNTER 2022-11-13 11:33 | Outpatient (AMB) | payer MEDICAID, SELFPAY ==
[2022-11-13 11:43] VITALS: BP 130/82; PULSE 66; RESP 17; TEMP 36.8; BMI 43.9
--- NOTE | 2022-11-13 11:43 | A.OFFVIS_ITS ---
Intake Vital Signs 11/13/22 11:43 Height 5 ft Weight 224 lb 13.944 oz BMI 43.9 BP 130/82 Blood Pressure Location Lt brachial Position Sitting Respiration 17 Pulse 66 Pulse Source Pulse Oximeter Temp 98.2 F Temp Source Tympanic Oxygen Delivery Method Room Air Intake Visit Reasons: cts Allergies acetic acid Allergy (Severe, Verified 11/13/22 11:46) Anaphylaxis from Vinegar raspberry [RASPBERRY] Allergy (Severe, Verified 11/13/22 11:46) Anaphylaxis turkey Allergy (Severe, Verified 11/13/22 11:46) Anaphylaxis azithromycin [AZITHROMYCIN] Allergy (Unknown, Verified 11/13/22 11:46) Vomiting cefuroxime [From Ceftin] Allergy (Unknown, Verified 11/13/22 11:46) Vomiting clonidine [CLONIDINE] Allergy (Unknown, Verified 11/13/22 11:46) Nausea and Vomiting dexlansoprazole [From Dexilant] Allergy (Unknown, Verified 11/13/22 11:46) Unknown methylphenidate [Methylphenidate] Allergy (Unknown, Verified 11/13/22 11:46) Unknown nortriptyline [NORTRIPTYLINE] Allergy (Unknown, Verified 11/13/22 11:46) Swelling pantoprazole [PANTOPRAZOLE] Allergy (Unknown, Verified 11/13/22 11:46) Unknown penicillin V Allergy (Unknown, Verified 11/13/22 11:46) Vomiting latex Allergy (Verified 11/13/22 11:46) Anaphylaxis shellfish derived Allergy (Verified 11/13/22 11:46) Anaphylaxis celecoxib [CELECOXIB] Adverse Reaction (Unknown, Verified 11/13/22 11:46) Nausea and Vomiting erythromycin base [ERYTHROMYCIN BASE] Adverse Reaction (Unknown, Verified 11/13/22 11:46) Hives, Vomiting lorazepam [From Ativan] Adverse Reaction (Unknown, Verified 11/13/22 11:46) Agitated Penicillins [PENICILLINS] Adverse Reaction (Unknown, Verified 11/13/22 11:46) Stomach Upset Epidural Needle Allergy (Unknown, Uncoded 11/13/22 11:46) Unknown Medication List - Last Reconciled 11/13/22 by Beth Wyman, RN atomoxetine (Strattera) 18 mg PO DAILY gabapentin 600 mg PO TID ibuprofen 800 mg PO Q8H PRN lurasidone (Latuda) 20 mg PO QAM topiramate 25 mg PO BID HPI HPI Comments History of Present Illness Details The patient returns for evaluation of her fibromyalgia and carpal tunnel symptoms. She remains on gabapentin. She notes that the right hand paresthesias have subsided after she received a corticosteroid injection at [facility]. There were nerve conduction studies that showed mild carpal tunnel syndrome in the right wrist. She now complains of some similar paresthesias in the left hand. This has been going on now for about a month. She has been doing some exercises for this but it has not helped. She had been hospitalized with a syncopal episode. Recently she had an EEG and has been put on Topamax for absence attacks. She does not have any some side effects so far with that medication. She remains on the gabapentin at 600 mg t.i.d.. That seems to be somewhat helpful for her other widespread pains of fibromyalgia. She also had a laparoscopic cholecystectomy in the last few weeks. [facility] Medical History Cochlear implant in place Fibromyalgia Frequent falls Hearing impaired Lesion of liver Surgical History Hx of cholecystectomy [place] teeth removed Family History (Updated 11/13/22 @ 11:48 by Beth Wyman RN) Mother Rheumatoid arthritis Osteoarthritis Father Arthritis Social History Household Members: Family Housing: Apartment Do you presently have visiting nurse or other home services: No Alcohol intake: current Alcohol intake frequency: a few times a week Patient Tobacco Use Status: Current everyday Tobacco user Tobacco use type: Cigarette Cigarettes Per Day: 2 Current occupational status: student Review of Systems Const Details: Negative for appetite change, weight change, fever, chills, malaise and fatigue Eyes Details: Negative for vision change, dry eyes,headaches and dizziness Endo Details: Negative for polyuria and polydypsia Agus/Lymph Details: Negative for excessive bruising or bleeding. Physical Exam Vital Signs: Last Vital Signs Temp 98.2 F 11/13/22 11:43 Pulse 66 11/13/22 11:43 Resp 17 11/13/22 11:43 BP 130/82 11/13/22 11:43 Oxygen Delivery Method Room Air 11/13/22 11:43 BMI result Body Mass Index 43.9 APPEARANCE: Patient in no acute distress EYES no redness, pupils equal and reactive to light, eyelids normal SKIN: No inflammatory or neoplastic lesions. There are scattered areas of vitiligo. JOINT EXAM: Cervical Spine:.? Mild pain with extremes of normal range of motion.? Slight cervical muscle? tenderness. Thoracic Spine:.? No scoliosis.? No tenderness on palpation. Lumbar Spine:.? Alignment normal.? Lumbar pain with the extremes of range of motion.? No tenderness. Chest Wall:.? No tenderness, swelling, increased warmth or erythema. Hands:? Right:? Mild pain with range of motion of the fingers.? There is slight tenderness in the 2nd and 3rd MCP joints without swelling.? There is decreased sensation over the right 3rd fingertip.? No redness or warmth.? No triggering or Raynaud's sequelae.? Left:? Normal pain-free range of motion without tenderness, swelling, increased warmth or erythema. 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 Wrists:.? Right: Mild pain with flexion extension to 60 degrees.? There is slight ventrall tenderness without redness or swelling.? ? Left:? Normal pain- free range of motion with slight pain at the extremes of 75 degrees flexion or extension. There is slight tenderness but no swelling. There is a positive Phalen's test. Elbows:. Normal pain-free range of motion without tenderness, swelling, increased warmth or erythema. Shoulders:.?? Full range of motion without pain. No tenderness, weakness, swelling, increased warmth or erythema. Hips:.? Full range of motion with mild lumbar discomfort with extremes of internal or external rotation.? No groin pain with motion. Hip bursa:.? No tenderness. Knees:.?? Normal pain-free range of motion with the mild patellofemoral crepitus.? No effusion, tenderness, swelling, increased warmth or erythema.? The Ankles:.? Normal pain-free range of motion with slight tenderness but no swelling, increased warmth or erythema. Feet:.? Normal pain-free range of motion without tenderness, swelling, increased warmth or erythema. Tender points:.? Mild tenderness to digital palpation at the occiput, trapezius, second rib, lateral epicondyle, knees,? trochanter and gluteal area bilaterally. ? Assessment & Plan Assessment & Plan (1) Carpal tunnel syndrome of left wrist: Code(s): G56.02 - Carpal tunnel syndrome, left upper limb (2) Fibromyalgia: Code(s): M79.7 - Fibromyalgia Plan The fibromyalgia symptoms seem stable. She has now some hand paresthesias on the left side consistent with carpal tunnel syndrome. This has been of a relatively recent onset so I do not think EMG is are likely to be positive so early. A trial with wrist splinting at night is recommended. I gave her a printed prescription for left wrist splint to pursue that option. She should wear the splint only at night. She says her primary doctor as taken also gabapentin prescribing so I do not think she necessarily needs to come back to Rheumatology unless there are further questions. Medications: New arm brace (Wrist Brace) put on left wrist at night, take off in daytime 1 ea 0RF G56.02 - Carpal tunnel syndrome, left upper limb Coding Level of Care Code Est Pt Level 3 (98569) Diagnoses Carpal tunnel syndrome of left wrist G56.02 Fibromyalgia M79.7
== END 2022-11-13 12:06 | disposition home or self-care (01) ==
PROVIDERS: PCP Registered Nurse; Visit Provider Internal Medicine Rheumatology
DX: G56.02 Carpal tunnel syndrome, left upper limb (principal); M79.7 Fibromyalgia
CPT/HCPCS: 99213

== ENCOUNTER → 2022-11-13 11:33 | Outpatient (BNVA) | payer MEDICAID, SELFPAY | PROVIDERS: PCP Registered Nurse; Visit Provider Internal Medicine Rheumatology | DX: G56.02 Carpal tunnel syndrome, left upper limb (principal); M79.7 Fibromyalgia | CPT/HCPCS: 99212 ==

== ENCOUNTER 2022-11-18 09:28 | Outpatient (AMB) | payer MEDICAID, SELFPAY ==
--- NOTE | 2022-11-18 09:33 | MHC.OFFVIS ---
Intake Intake Visit Reasons: S/p lap poss open cholecystectomy Allergies acetic acid Allergy (Severe, Verified 11/13/22 11:46) Anaphylaxis from Vinegar raspberry [RASPBERRY] Allergy (Severe, Verified 11/13/22 11:46) Anaphylaxis turkey Allergy (Severe, Verified 11/13/22 11:46) Anaphylaxis azithromycin [AZITHROMYCIN] Allergy (Unknown, Verified 11/13/22 11:46) Vomiting cefuroxime [From Ceftin] Allergy (Unknown, Verified 11/13/22 11:46) Vomiting clonidine [CLONIDINE] Allergy (Unknown, Verified 11/13/22 11:46) Nausea and Vomiting dexlansoprazole [From Dexilant] Allergy (Unknown, Verified 11/13/22 11:46) Unknown methylphenidate [Methylphenidate] Allergy (Unknown, Verified 11/13/22 11:46) Unknown nortriptyline [NORTRIPTYLINE] Allergy (Unknown, Verified 11/13/22 11:46) Swelling pantoprazole [PANTOPRAZOLE] Allergy (Unknown, Verified 11/13/22 11:46) Unknown penicillin V Allergy (Unknown, Verified 11/13/22 11:46) Vomiting latex Allergy (Verified 11/13/22 11:46) Anaphylaxis shellfish derived Allergy (Verified 11/13/22 11:46) Anaphylaxis celecoxib [CELECOXIB] Adverse Reaction (Unknown, Verified 11/13/22 11:46) Nausea and Vomiting erythromycin base [ERYTHROMYCIN BASE] Adverse Reaction (Unknown, Verified 11/13/22 11:46) Hives, Vomiting lorazepam [From Ativan] Adverse Reaction (Unknown, Verified 11/13/22 11:46) Agitated Penicillins [PENICILLINS] Adverse Reaction (Unknown, Verified 11/13/22 11:46) Stomach Upset Epidural Needle Allergy (Unknown, Uncoded 11/13/22 11:46) Unknown HPI HPI Comments History of Present Illness Details Patient presents for follow-up she is doing well. She is tolerating a diet. Having normal bowel habits. She has minimal incisional discomfort. She is ambulate with minimal assistance, And increasing her activity level. [facility] Medical History Cochlear implant in place Fibromyalgia Frequent falls Hearing impaired Lesion of liver Surgical History Hx of cholecystectomy [place] teeth removed Family History (Updated 11/13/22 @ 11:48 by Beth Wyman RN) Mother Rheumatoid arthritis Osteoarthritis Father Arthritis Social History Household Members: Family Housing: Apartment Do you presently have visiting nurse or other home services: No Alcohol intake: current Alcohol intake frequency: a few times a week Patient Tobacco Use Status: Current everyday Tobacco user Tobacco use type: Cigarette Cigarettes Per Day: 2 Current occupational status: student Physical Exam Eyes Other: Anicteric GI Other: Abdomen soft and benign. All wounds clean dry and intact. Assessment & Plan Assessment & Plan (1) History of laparoscopic cholecystectomy: Comment: 11/2022 fro gallstones Code(s): Z90.49 - Acquired absence of other specified parts of digestive tract Plan Patient has been given local wound instructions, and will follow-up p.r.n. Coding Level of Care Code Global (16208) Diagnoses History of laparoscopic cholecystectomy Z90.49
== END 2022-11-18 09:33 | disposition home or self-care (01) ==
PROVIDERS: PCP Registered Nurse; Visit Provider Surgery
DX: Z90.49 Acquired absence of other specified parts of digestive tract (principal)
CPT/HCPCS: 99024

== ENCOUNTER → 2022-11-18 09:28 | Outpatient (BNVA) | payer MEDICAID, SELFPAY | PROVIDERS: PCP Registered Nurse; Visit Provider Surgery ==

== ENCOUNTER 2022-11-25 | Outpatient (REF) | payer MEDICAID, SELFPAY ==
[2022-11-26 13:50] LABS: Appearance Urine Clear; Color Urine Yellow; Glucose Urine UA Negative (Negative); Leukocyte Esterase Urine Trace (Negative); Nitrite Urine Negative (Negative); PH 5.5 (5.0-9.0); Specific Gravity - Urine 1.015 (1.005-1.025); UMIC TRIGGER UACC YES; Urine Blood Negative (Negative); Urine Ketones Negative (Negative); Urine Protein Negative (Neg-Trace)
[2022-11-26 13:54] LABS: CT PCR NOT DETECTED (Not Detect.); NG PCR NOT DETECTED (Not Detect.)
[2022-11-26 13:55] LABS: Bacteria Urine None Seen (None Seen); Hyaline Casts Urine 0-2 /LPF (0-2); RBC Urine 0-2 /HPF (0-2); Squamous Epithelial Cell Urine 0-2 /HPF (0-2); WBC Urine 0-5 /HPF (0-5)
[2022-11-27 10:45] LABS: BV Int Neg Control Negative (Negative); BV Int Pos Control Positive (Positive)
== END 2022-11-25 00:01 | disposition home or self-care (01) ==
LOC: HO.HHCLNP
PROVIDERS: Visit Provider Registered Nurse
DX: N89.8 Other specified noninflammatory disorders of vagina (principal); Z20.822 Contact with and (suspected) exposure to COVID-19
CPT/HCPCS: 0353U; 81001; 87480; 87510; 87660

== ENCOUNTER 2022-11-26 13:15 | Outpatient (REF) | payer MEDICAID, SELFPAY | END 2022-11-26 13:16 | disposition home or self-care (01) | LOC: HO.HHCLNP 13:15 | PROVIDERS: Visit Provider Registered Nurse | DX: Z13.89 Encounter for screening for other disorder (principal) ==

== ENCOUNTER 2023-02-19 17:48 | Outpatient (REF) | payer MEDICAID, SELFPAY ==
[2023-02-20 03:12] LABS: CT PCR NOT DETECTED (Not Detect.); NG PCR NOT DETECTED (Not Detect.)
[2023-02-20 10:23] LABS: BV Int Neg Control Negative (Negative); BV Int Pos Control Positive (Positive)
== END 2023-02-19 17:49 | disposition home or self-care (01) ==
LOC: HO.HHCLNP 17:48
PROVIDERS: Visit Provider Registered Nurse
DX: Z12.4 Encounter for screening for malignant neoplasm of cervix (principal)
CPT/HCPCS: 0353U; 87480; 87510; 87660; 88142

== ENCOUNTER 2023-04-18 12:03 | Outpatient (REF) | payer MEDICAID, SELFPAY ==
[2023-04-20 04:50] LABS: HIV AB/AG Nonreactive (Nonreactive); HIV Num 1 0.07 S/CO (0.00-0.99)
[2023-04-20 20:54] LABS: TS Negative Control Passed; TS Panel A 1; TS Panel B 0; TS Positive Control Passed; TSpotTB Negative (Negative)
== END 2023-04-18 12:04 | disposition home or self-care (01) ==
LOC: HO.HHCL 12:03
PROVIDERS: Visit Provider Internal Medicine
DX: Z11.4 Encounter for screening for human immunodeficiency virus [HIV] (principal); Z11.1 Encounter for screening for respiratory tuberculosis; R04.2 Hemoptysis
CPT/HCPCS: 36415; 86481; 87389

== ENCOUNTER 2023-05-28 08:53 | Outpatient (AMB) | payer MEDICAID, SELFPAY ==
[2023-05-28 08:58] VITALS: BP 122/70; PULSE 89; O2SAT 100; BMI 44.3
--- NOTE | 2023-05-28 08:58 | MHC.OFFVIS ---
Intake Vital Signs 05/28/23 08:58 Height 5 ft Weight 227 lb BMI 44.3 BP 122/70 Blood Pressure Location Rt brachial Position Sitting Pulse 89 Pulse Source Pulse Oximeter Pulse Oximetry (%) 100 Oxygen Delivery Method Room Air Intake Visit Reasons: Hemoptysis Welcome Desk Agent Required: No Eligibility And Occupancy Interviewer: Eligibility And Occupancy Interviewer offered & declined Accompanied by: Self / Same As Patient Allergies acetic acid Allergy (Severe, Verified 05/28/23 09:05) Anaphylaxis from Vinegar raspberry [RASPBERRY] Allergy (Severe, Verified 05/28/23 09:05) Anaphylaxis turkey Allergy (Severe, Verified 05/28/23 09:05) Anaphylaxis azithromycin [AZITHROMYCIN] Allergy (Unknown, Verified 05/28/23 09:05) Vomiting cefuroxime [From Ceftin] Allergy (Unknown, Verified 05/28/23 09:05) Vomiting clonidine [CLONIDINE] Allergy (Unknown, Verified 05/28/23 09:05) Nausea and Vomiting dexlansoprazole [From Dexilant] Allergy (Unknown, Verified 05/28/23 09:05) Unknown methylphenidate [Methylphenidate] Allergy (Unknown, Verified 05/28/23 09:05) Unknown nortriptyline [NORTRIPTYLINE] Allergy (Unknown, Verified 05/28/23 09:05) Swelling pantoprazole [PANTOPRAZOLE] Allergy (Unknown, Verified 05/28/23 09:05) Unknown penicillin V Allergy (Unknown, Verified 05/28/23 09:05) Vomiting latex Allergy (Verified 05/28/23 09:05) Anaphylaxis shellfish derived Allergy (Verified 05/28/23 09:05) Anaphylaxis celecoxib [CELECOXIB] Adverse Reaction (Unknown, Verified 05/28/23 09:05) Nausea and Vomiting erythromycin base [ERYTHROMYCIN BASE] Adverse Reaction (Unknown, Verified 05/28/23 09:05) Hives, Vomiting lorazepam [From Ativan] Adverse Reaction (Unknown, Verified 05/28/23 09:05) Agitated Penicillins [PENICILLINS] Adverse Reaction (Unknown, Verified 05/28/23 09:05) Stomach Upset Epidural Needle Allergy (Unknown, Uncoded 05/28/23 09:05) Unknown Medication List - Last Reconciled 05/28/23 by Swati Cardona LPN arm brace (Wrist Brace) put on left wrist at night, take off in daytime atomoxetine (Strattera) 18 mg PO DAILY cetirizine (All Day Allergy (cetirizine)) 10 mg PO DAILY PRN epinephrine 0.3 mg IM Q4H PRN gabapentin 600 mg PO TID ibuprofen 800 mg PO Q8H PRN lurasidone (Latuda) 20 mg PO QAM ondansetron 8 mg PO Q8H PRN topiramate 25 mg PO BID HPI Hemoptysis HPI Details Fabiola is a pleasant 27 year old female, minimal smoker, with underlying asthma, seasonal allergies, GERD and anxiety. She was referred by PCP for hemoptysis. She reports having an intermittent productive cough with whitish sputum that was blood tinged starting in February. She believes she had an URI at that time. From February until April continued with productive cough and small hemoptysis which has spontaneously resolved. She also had wheezing at this time. She denies any chest tightness or dyspnea. She attributed symptoms to her workplace which she left one month ago. She did not have any imaging and is not maintained on any inhalers. All symptoms have resolved at this time. She reports significant seasonal allergies, with prior allergy testing many years ago. She does not have any pets. She denies occupational exposures. She reports her father and daughter with asthma. Of note, she is under the care of ENT who evaluated her at the time of symptoms and she is to be scheduled for a tonsillectomy to alleviate obstruction causing snoring. [facility] Medical History Cochlear implant in place Fibromyalgia Frequent falls Hearing impaired Lesion of liver Surgical History Hx of cholecystectomy [place] teeth removed Family History (Updated 11/13/22 @ 11:48 by Beth Wyman RN) Mother Rheumatoid arthritis Osteoarthritis Father Arthritis Social History (Updated 05/28/23 @ 09:07 by Swati Cardona LPN) Household Members: Family Housing: Apartment Do you presently have visiting nurse or other home services: No Alcohol intake: current Alcohol intake frequency: a few times a week Comment: pt refusing high fall risk interventions Patient Tobacco Use Status: Current everyday Tobacco user Tobacco use type: Cigarette Cigarettes Per Day: 1 Years Smoked: 8 Current occupational status: student Review of Systems Const Denies chills, Denies excessive sweating, Denies fever(s), Denies headache(s) and Denies night sweats Eyes Denies dry eyes, Denies irritation and Denies itchy eyes ENT Reports Normal hearing present, Denies headache(s), Denies nasal congestion, Denies nasal discharge, Denies post nasal drip and Denies sore throat Card Denies chest pain, Denies chest pain at rest, Denies chest pain with activity, Denies claudication, Denies leg edema, Denies dyspnea, Denies dyspnea on exertion, Denies orthopnea and Denies paroxysmal nocturnal dyspnea Resp Denies chest congestion, Denies cough, Denies excessive phlegm production, Denies pain on inspiration, Denies pain with cough, Denies dyspnea, Denies dyspnea on exertion, Denies stridor and Denies wheezing Musc Denies myalgias Neuro Reports Normal hearing present and Denies headache(s) Endo Denies excessive sweating Agus/Lymph Denies lymphadenopathy Aller/Immun Denies itchy eyes, Denies seasonal rhinorrhea and Denies wheezing Physical Exam Vital Signs: Last Vital Signs Pulse 89 05/28/23 08:58 BP 122/70 05/28/23 08:58 Pulse Ox 100 05/28/23 08:58 Oxygen Delivery Method Room Air 05/28/23 08:58 BMI result Body Mass Index 44.3 Const General: cooperative, healthy appearing, comfortable, no acute distress, well developed and alert Nutritional Appearance: obese Orientation/consciousness: patient oriented x3 Limitations: no limitations HEENT Other: cochlear implants in place Head: Yes normal to inspection, Yes normocephalic and Yes atraumatic Ears: hearing grossly normal bilaterally and external ears normal Eyes General: appearance normal, both eyes and all related structures Eyelids: Yes eyelids normal Sclerae: sclerae normal EOM: EOMs intact bilaterally Neck Neck: Yes normal visual inspection and Yes no lymphadenopathy Lymphatic: no lymphadenopathy noted Chest Chest palpation & inspection: normal inspection of the chest Resp Effort & Inspection: normal respiratory effort, able to speak in complete sentences, no audible wheezes, no cough, no stridor, not tachypneic, no tripod positioning and no use of accessory muscles Auscultation: clear to auscultation bilaterally Cardio Jugular venous distension: no JVD Rate: regular rate Rhythm: regular rhythm Skin Other: warm, dry General skin exam: no rashes or lesions noted Neuro General: patient oriented x3 Cranial nerves: Yes Normal hearing present Cognition (Neuro): normal cognition Gait exam (Neuro): Normal gait present Extrem General: Yes normal to inspection, Yes capillary refill normal, Yes no clubbing, cyanosis or edema and Yes no pedal edema Psych Appearance: grossly normal and well kempt Speech and movement: Normal speech and movement present and Clear speech present Affect: normal affect Attitude: cooperative Thought process: Normal thought process present Thought content: Normal thought content present Insight: Good insight present (Psych) Judgement: Good judgement present (Psych) Assessment & Plan Assessment & Plan (1) Asthma: Code(s): J45.909 - Unspecified asthma, uncomplicated Plan Fabiola's symptoms are likely related to underlying asthma and prior URI. Will send for CXR given reports of hemoptysis, now resolved. She is aware if hemoptysis returns, to seek emergent care for thorough evaluation. Will also send for PFT to assess for obstructive defect and RAST. Albuterol rx given and instructed patient to use if symptoms of wheezing return. All questions were answered and patient is in agreement of plan. Will follow up to review results or sooner if needed. Orders: Orders Resp Allergy Profile Region I Today Immunoglobulin E Today J45.909 - Unspecified asthma, uncomplicated XR chest 2V Today R05.9 - Cough, unspecified Complete Blood Count Auto Diff Today R05.9 - Cough, unspecified PFT pulmonary function test Today J45.909 - Unspecified asthma, uncomplicated Medications: New albuterol sulfate 90 mcg/actuation 2 puffs inhalation Q4-6H PRN 1 ea 3RF shortness of breath or wheezing Coding Level of Care Code New Pt Level 4 (65818) Diagnoses Asthma J45.909
== END 2023-05-28 09:26 | disposition home or self-care (01) ==
PROVIDERS: PCP Registered Nurse; Visit Provider Nurse Practitioner Family
DX: J45.909 Unspecified asthma, uncomplicated (principal)
CPT/HCPCS: 99204

== ENCOUNTER → 2023-05-28 08:53 | Outpatient (BNVA) | payer MEDICAID, SELFPAY | PROVIDERS: PCP Registered Nurse; Visit Provider Nurse Practitioner Family | DX: J45.909 Unspecified asthma, uncomplicated (principal) | CPT/HCPCS: 99212 ==

== ENCOUNTER 2023-05-28 09:26 | Outpatient (REF) | payer MEDICAID, SELFPAY ==
--- NOTE | ~2023-05-28 | XR_ITS ---
EXAMINATION: XR CHEST CLINICAL INFORMATION: Cough, unspecified COMPARISON: Chest 01/16/2020 TECHNIQUE: 2 views of the chest were obtained. FINDINGS: No significant abnormality is noted involving the heart, lungs, mediastinum, bony thorax or soft tissues. XR/XR chest 2V IMPRESSION: Unremarkable examination.
[2023-05-28 11:19] LABS: MANUAL DIFF FLAG NO
[2023-05-28 11:27] LABS: Basophils Percent Auto 0.4 % (0-2); Eosinophils Absolute Auto 0.1 X10*3/uL (0.0-0.4); Eosinophils Percent Auto 0.9 % (0-4); Hematocrit 39.2 % (37.0-47.0); Imm Gran Abs Auto 0.05 X10*3/uL (0.00-0.03); Imm Gran Pct Auto 0.5 % (0.0-0.4); Lymphocytes Absolute Auto 1.7 X10*3/uL (1.2-4.9); Lymphocytes Percent Auto 17.9 % (20-40); Mean Corpuscular HGB Conc 35.7 g/dl (31.0-35.0); Mean Corpuscular Hemoglobin 32.2 pg (27.0-33.0); Mean Corpuscular Volume 90.1 fL (80.0-98.0); Monocytes Absolute Auto 0.6 X10*3/uL (0.1-1.2); Monocytes Percent Auto 5.9 % (2-11); Neutrophils Absolute Auto 7.1 x10*3/uL (2.0-8.3); Neutrophils Percent Auto 74.4 % (45-73); Platelet Count 293 X10*3/uL (160-400); Red Blood Count 4.35 X10*6/uL (4.20-5.50); Red Cell Distribution Width 12.9 % (11.0-16.0); White Blood Count 9.5 X10*3/uL (4.8-10.8)
[2023-05-29 15:09] LABS: Class Alternaria alternata 0; Class Aspergillus fumigatus 0; Class Bermuda Grass 0; Class Birch 0; Class Cat Dander 0; Class Cladosporium herbarum 0; Class Cockroach 0; Class Common Ragweed 0; Class Cottonwood 0; Class Derm. pterony 0; Class Dermatophagoides farinae 0; Class Dog Dander 0; Class Elm 0; Class Maple Box Elder 0; Class Mountain Cedar 0; Class Mouse Urine Protein 0; Class Mugwort 0; Class Oak 0; Class Penicillium crysogenum 0; Class Rough Pigweed 0; Class Sheep Sorrel 0; Class Sycamore 0; Class Timothy Grass 0; Class Walnut Tree 0; Class White Ash 0; Class White Mulberry 0; D001 IgE D pteronyssinus <0.10 kU/L; D002 - IgE D farinae <0.10 kU/L; E001 - IgE Cat Dander <0.10 kU/L; E005 - IgE Dog Dander <0.10 kU/L; E072-IgE Mouse Urine <0.10 kU/L; G002 IgE Bermuda Grass <0.10 kU/L; G006 - IgE Timothy Grass <0.10 kU/L; I006-IgE Cockroach, German <0.10 kU/L; Immunoglobulin E 12 kU/L (<OR=114); M001 IgE Penicillium chrysogen <0.10 kU/L; M002 - IgE Cladosporium herbar <0.10 kU/L; M003 - IgE Aspergillus fumigat <0.10 kU/L; M006 - IgE Alternaria alternat <0.10 kU/L; T001 IgE Maple/Box Elder <0.10 kU/L; T003 IgE Common Silver Birch <0.10 kU/L; T006 - IgE Cedar, Mountain <0.10 kU/L; T007 - IgE Oak, White <0.10 kU/L; T008 IgE Elm, American <0.10 kU/L; T010 - IgE Walnut <0.10 kU/L; T011 - IgE Maple Leaf Sycamore <0.10 kU/L; T014 - IgE Cottonwood <0.10 kU/L; T015 - IgE Ash, White <0.10 kU/L; T070 - IgE White Mulberry <0.10 kU/L; W001 - IgE Ragweed, Short <0.10 kU/L; W006 - IgE Mugwort <0.10 kU/L; W014 IgE Pigweed, Common <0.10 kU/L; W018 IgE Sheep Sorrel <0.10 kU/L
== END 2023-05-28 09:27 | disposition home or self-care (01) ==
LOC: HO.WFDLDS 09:26
PROVIDERS: Visit Provider Nurse Practitioner Family
DX: J45.909 Unspecified asthma, uncomplicated (principal); R05.9 Cough, unspecified
CPT/HCPCS: 36415; 71046; 82785; 85025; 86003; 99212

== ENCOUNTER 2023-09-02 09:07 | Outpatient (REF) | payer MEDICAID, SELFPAY ==
[2023-09-02 14:25] LABS: CT PCR NOT DETECTED (Not Detect.); NG PCR NOT DETECTED (Not Detect.)
[2023-09-03 08:53] LABS: RPR Rapid Plasma Reagin NON-REACTIVE (NON-REACTIVE)
[2023-09-03 11:10] LABS: Bacterial Vaginosis PCR NEGATIVE (Negative); Candida Group PCR DETECTED (Not Detect); Candida glab krusei PCR NOT DETECTED (Not Detect); Trichomonas vaginalis PCR NOT DETECTED (Not Detect)
[2023-09-05 22:14] LABS: HIV RNA PCR Qn Copies Not Detected Copies/mL; HIV RNA PCR Qn Log Copies Not Detected Log cps/mL
== END 2023-09-02 09:08 | disposition home or self-care (01) ==
LOC: HO.HHCL 09:07
PROVIDERS: Visit Provider Nurse Practitioner Family
DX: Z20.2 Contact with and (suspected) exposure to infections with a predominantly sexual mode of transmission (principal)
CPT/HCPCS: 0352U; 0353U; 36415; 86592; 87536; 87900

== ENCOUNTER 2023-10-01 00:53 | Emergency (ER) | payer MEDICAID, SELFPAY ==
--- NOTE | ~2023-10-01 | XR_ITS ---
EXAMINATION: XR KNEE, LEFT CLINICAL INFORMATION: Fall/pain. COMPARISON: None available. TECHNIQUE: AP and lateral views of the left knee. FINDINGS: No fracture or malalignment. Small medial compartment osteophytes. Trace joint effusion. Joint spaces well-preserved. No osseous lesions. Soft tissues are unremarkable. XR/XR knee LT 2V IMPRESSION: 1. No acute fracture or malalignment. 2. Trace joint effusion.
[2023-10-01 01:04] VITALS: BP 135/77; PULSE 100; RESP 20; TEMP 36.7; O2SAT 94; BMI 42.0
--- NOTE | 2023-10-01 02:47 | ED.FALL ---
HPI - Fall General Chief Complaint: Fall Stated Complaint: fall Time Seen by Provider: 10/01/23 02:22 Source: patient Mode of arrival: ambulatory Limitations: no limitations History of Present Illness ED Provider: DR. Lassiter HPI Narrative: 27-year-old female came in for evaluation after a mechanical fall. Patient feels left knee pain then the knee gave out causing her to fall several times today, patient reported head injury with no LOC, no headache, no blurry vision, GCS of 15 in the ED. Related Data Home Medications ?Medication ?Instructions ?Recorded ?Confirmed gabapentin 600 mg tablet 600 mg PO TID 06/26/22 05/28/23 atomoxetine 18 mg capsule 18 mg PO DAILY 07/05/22 05/28/23 (Strattera) lurasidone 20 mg tablet (Latuda) 20 mg PO QAM 11/04/22 05/28/23 topiramate 25 mg tablet 25 mg PO BID 11/07/22 05/28/23 cetirizine 10 mg tablet (All Day 10 mg PO DAILY PRN 05/28/23 05/28/23 Allergy (cetirizine)) epinephrine 0.3 mg/0.3 mL 0.3 mg IM Q4H PRN 05/28/23 05/28/23 injection, auto-injector ondansetron 8 mg disintegrating 8 mg PO Q8H PRN 05/28/23 05/28/23 tablet Previous Rx's ?Medication ?Instructions ?Recorded ibuprofen 800 mg tablet 800 mg PO Q8H PRN pain #30 tabs 11/07/22 arm brace (Wrist Brace) #1 ea 11/13/22 albuterol sulfate 90 mcg/actuation 2 puff inhalation Q4-6H PRN 05/28/23 aerosol inhaler shortness of breath or wheezing #1 ea Allergies Allergy/AdvReac Type Severity Reaction Status Date / Time acetic acid Allergy Severe Anaphylaxis Verified 10/01/23 01:04 from Vinegar raspberry [RASPBERRY] Allergy Severe Anaphylaxis Verified 10/01/23 01:04 turkey Allergy Severe Anaphylaxis Verified 10/01/23 01:04 azithromycin [AZITHROMYCIN] Allergy Unknown Vomiting Verified 10/01/23 01:04 cefuroxime [From Ceftin] Allergy Unknown Vomiting Verified 10/01/23 01:04 clonidine [CLONIDINE] Allergy Unknown Nausea and Verified 10/01/23 01:04 Vomiting dexlansoprazole Allergy Unknown Unknown Verified 10/01/23 01:04 [From Dexilant] methylphenidate Allergy Unknown Unknown Verified 10/01/23 01:04 [Methylphenidate] nortriptyline [NORTRIPTYLINE] Allergy Unknown Swelling Verified 10/01/23 01:04 pantoprazole [PANTOPRAZOLE] Allergy Unknown Unknown Verified 10/01/23 01:04 penicillin V Allergy Unknown Vomiting Verified 10/01/23 01:04 latex Allergy Anaphylaxis Verified 10/01/23 01:04 shellfish derived Allergy Anaphylaxis Verified 10/01/23 01:04 celecoxib [CELECOXIB] AdvReac Unknown Nausea and Verified 10/01/23 01:04 Vomiting erythromycin base AdvReac Unknown Hives, Verified 10/01/23 01:04 [ERYTHROMYCIN BASE] Vomiting lorazepam [From Ativan] AdvReac Unknown Agitated Verified 10/01/23 01:04 Penicillins [PENICILLINS] AdvReac Unknown Stomach Verified 10/01/23 01:04 Upset Epidural Needle Allergy Unknown Unknown Uncoded 10/01/23 01:04 Review of Systems Review of Systems: All other systems are reviewed and are negative Constitutional: Reports as per HPI and Reports no additional constitutional complaints Eyes: Reports as per HPI and Reports no additional eye complaints Reports system reviewed and no additional complaints, except as documented Cardiovascular: Reports as per HPI and Reports no additional cardiovascular complaints Respiratory: Reports as per HPI and Reports no additional respiratory complaints Gastrointestinal: Reports as per HPI and Reports no additional gastrointestinal complaints Genitourinary: Reports no additional female genitourinary complaints Musculoskeletal: Reports no additional musculoskeletal complaints Skin/Breast: Reports system reviewed and no additional complaints, except as docu Psychiatric: Reports no additional psychiatric complaints Endocrine: Reports no additional endocrine complaints Hematologic/Lymphatic: Reports no additional hematologic/lymphatic complaints Allergic/Immunologic: Reports no additional allergic/immunologic complaints Reports system reviewed and no additional complaints, except as documented and Reports Abnormal speech present [facility] Past Medical History Medical History Frequent falls Cochlear implant in place Lesion of liver Hearing impaired Fibromyalgia Surgical History Hx of cholecystectomy [place] teeth removed Family History Family History Mother Rheumatoid arthritis Osteoarthritis Father Arthritis Social History Social History Household Members: Family Housing: Apartment Do you presently have visiting nurse or other home services: No Alcohol intake: current Alcohol intake frequency: a few times a week Comment: pt refusing high fall risk interventions Patient Tobacco Use Status: Current everyday Tobacco user Tobacco use type: Cigarette Cigarettes Per Day: 1 Years Smoked: 8 Smoked in Last 30 Days: No Use of substances other than those prescribed or required for medical reasons: No Advance Directives: No Advance Directives Information Provided: No Do you have a plan to hurt others: No Plan Patient : No Current occupational status: student Physical Exam Vital Signs: Vital Signs: Last Vital Signs Temp 98.0 F 10/01/23 01:04 Pulse 100 10/01/23 01:04 Resp 20 10/01/23 01:04 BP 135/77 10/01/23 01:04 Pulse Ox 94 10/01/23 01:04 O2 Del Method Room Air 10/01/23 01:04 BMI result Body Mass Index 42.0 Vital signs have been reviewed and appear to be correct. Blood pressure elevated. Heart rate normal. Respiratory rate normal. Temperature normal. Oxygen saturation normal. Appearance: Alert. Oriented X3. No acute distress. Head: Normal external exam. Normocephalic. Atraumatic. No Barnett signs noted. No raccoon eyes noted Eyes: PERRLA. EOMI. Conjunctiva and sclera normal. Eyelids normal. ENT: TM's Normal. Pharynx normal. Uvula midline. Moist mucous membranes. No trismus noted. No drooling noted. No muffled voice noted. Neck: Normal inspection. Neck supple. FROM. No adenopathy. Thyroid Normal. No meningeal signs. No neck mass noted. CVS: Normal heart rate and rhythm. Heart sound normal. No murmurs noted. Pulses normal throughout. Respiratory: No respiratory distress. Painless inspiration. Breath sounds normal. No wheezes/rales/rhonchi noted. Chest nontender. No accessory muscle usage noted or decreased air movement noted. Abdomen: Soft and nontender. Bowel sounds normal in all 4 quadrants. No distention noted. No organomegaly noted. No visible injury noted. Back: No CVA tenderness. Full range of motion noted. Skin: Skin warm and dry. Normal skin color. Normal skin turgor. No rashes/lesions/lacerations noted. Extremities: Left knee exam: No deformity, no step-off, no laceration. Limited range of motion due to pain but able to bear weight. Neuro: Oriented X 3. Cranial nerve exam: II-XII are grossly intact No motor deficit. No sensory deficit. Reflexes normal. Course Reevaluation(s) Reevaluation #1: Left knee contusion. Continue with knee immobilization, Tylenol if needed, follow-up with orthopedic. Time: 02:51 Medications Administered Discontinued Medications Generic Name Dose Route Start Last Admin Trade Name Freq PRN Reason Stop Dose Admin Acetaminophen 650 mg 10/01/23 02:50 10/01/23 02:59 Acetaminophen 325 Mg Tablet PO 10/01/23 02:51 650 mg ONCE ONE Administration Medical Decision Making Differential Diagnosis Differential Diagnoses: The differential diagnosis associated with the presentation includes (Ligamentous injury, knee dislocation, knee fracture.) Admission/Observation Consideration of admission/observation: Escalation of care including admission/observation considered Independent Interpretation I performed an independent interpretation of an: Plain X-Ray (Left knee x-ray: 1. No acute fracture or malalignment. 2. Trace joint effusion. ) Radiology Impression Discussion of test interpretation with radiology: I have reviewed the radiologist's reading. Discharge Plan Discharge Clinical Impression: Contusion of left knee Patient Disposition: Home, Self-Care Instructions: Contusion in Adults (ED) Prescriptions: No Action topiramate 25 mg Tablet 25 mg PO BID ibuprofen 800 mg tablet 800 mg PO Q8H PRN (Reason: pain) Qty: 30 0RF atomoxetine [Strattera] 18 mg capsule 18 mg PO DAILY gabapentin 600 mg tablet 600 mg PO TID (DME) Wrist Brace Misc See Rx Instructions .Route Qty: 1 0RF Rx Instructions: put on left wrist at night, take off in daytime lurasidone [Latuda] 20 mg tablet 20 mg PO QAM Rx Instructions: must administer with food (at least 350 calories) cetirizine [All Day Allergy (cetirizine)] 10 mg tablet 10 mg PO DAILY PRN epinephrine 0.3 mg/0.3 mL auto-injector 0.3 mg IM Q4H PRN ondansetron 8 mg tablet,disintegrating 8 mg PO Q8H PRN albuterol sulfate 90 mcg/actuation HFA aerosol inhaler 2 puff inhalation Q4-6H PRN (Reason: shortness of breath or wheezing) Qty: 1 3RF Referrals: Oneal Rod MD [Physician] - Print Language: Trinidadian
[2023-10-01] MEDS: Acetaminophen 325 MG TABLET 650 MG PO (02:59)
[2023-10-01 04:43] VITALS: BP 127/89; PULSE 89; RESP 16; TEMP 36.8; O2SAT 97
== END 2023-10-01 04:44 | disposition home or self-care (01) ==
PROVIDERS: Emergency Provider Emergency Medicine; PCP Registered Nurse
DX: S80.02XA Contusion of left knee, initial encounter (principal); S09.90XA Unspecified injury of head, initial encounter; W19.XXXA Unspecified fall, initial encounter; Y93.9 Activity, unspecified; Y92.9 Unspecified place or not applicable; Y99.9 Unspecified external cause status
CPT/HCPCS: 73560; 99283; 99284

== ENCOUNTER 2023-10-24 12:43 | Outpatient (AMB) | payer MEDICAID, SELFPAY ==
--- NOTE | 2023-10-24 12:57 | MHC.OFFVIS ---
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 Pt states about a month ago her leg gave out and was unable to get up for a few hours. Pt states she has good days and bad days but states when she has her bad days she falls at least 6-7 times in a day. Pt states she only has pain and discomfort in her knee. Allergies acetic acid Allergy (Severe, Verified 10/24/23 12:58) Anaphylaxis from Vinegar raspberry [RASPBERRY] Allergy (Severe, Verified 10/24/23 12:58) Anaphylaxis turkey Allergy (Severe, Verified 10/24/23 12:58) Anaphylaxis azithromycin [AZITHROMYCIN] Allergy (Unknown, Verified 10/24/23 12:58) Vomiting cefuroxime [From Ceftin] Allergy (Unknown, Verified 10/24/23 12:58) Vomiting clonidine [CLONIDINE] Allergy (Unknown, Verified 10/24/23 12:58) Nausea and Vomiting dexlansoprazole [From Dexilant] Allergy (Unknown, Verified 10/24/23 12:58) Unknown methylphenidate [Methylphenidate] Allergy (Unknown, Verified 10/24/23 12:58) Unknown nortriptyline [NORTRIPTYLINE] Allergy (Unknown, Verified 10/24/23 12:58) Swelling pantoprazole [PANTOPRAZOLE] Allergy (Unknown, Verified 10/24/23 12:58) Unknown penicillin V Allergy (Unknown, Verified 10/24/23 12:58) Vomiting latex Allergy (Verified 10/24/23 12:58) Anaphylaxis shellfish derived Allergy (Verified 10/24/23 12:58) Anaphylaxis celecoxib [CELECOXIB] Adverse Reaction (Unknown, Verified 10/24/23 12:58) Nausea and Vomiting erythromycin base [ERYTHROMYCIN BASE] Adverse Reaction (Unknown, Verified 10/24/23 12:58) Hives, Vomiting lorazepam [From Ativan] Adverse Reaction (Unknown, Verified 10/24/23 12:58) Agitated Penicillins [PENICILLINS] Adverse Reaction (Unknown, Verified 10/24/23 12:58) Stomach Upset Epidural Needle Allergy (Unknown, Uncoded 10/24/23 12:58) Unknown Medication List - Last Reconciled 10/24/23 by Alejandro Carver PA-C albuterol sulfate 90 mcg/actuation 2 puffs inhalation Q4-6H PRN arm brace (Wrist Brace) put on left wrist at night, take off in daytime atomoxetine (Strattera) 18 mg PO DAILY cetirizine (All Day Allergy (cetirizine)) 10 mg PO DAILY PRN duloxetine 20 mg PO DAILY epinephrine 0.3 mg IM Q4H PRN gabapentin 600 mg PO TID ibuprofen 800 mg PO Q8H PRN lurasidone (Latuda) 20 mg PO QAM ondansetron 8 mg PO Q8H PRN topiramate 25 mg PO BID HPI 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 She reports her leg gave out about a month ago and she was unable to get up for a few hours. She currently states she has good and bad days of pain but when she has her bad days she falls at least 6-7 times. She reports she only has pain and discomfort in her knee. She is wearing a knee brace for support. [facility] Medical History Frequent falls Cochlear implant in place Lesion of liver Hearing impaired Fibromyalgia Surgical History Hx of cholecystectomy [place] teeth removed Family History Mother Rheumatoid arthritis Osteoarthritis Father Arthritis Social History Household Members: Family Housing: Apartment Do you presently have visiting nurse or other home services: No Alcohol intake: current Alcohol intake frequency: a few times a week Comment: pt refusing high fall risk interventions Patient Tobacco Use Status: Current everyday Tobacco user Tobacco use type: Cigarette Cigarettes Per Day: 1 Years Smoked: 8 Current occupational status: student Review of Systems Const All systems reviewed & are unremarkable except as noted in HPI and below Physical Exam Extrem Other: Right knee: Skin intact, no erythema or joint effusion. Tenderness along the medial and lateral joint line. Full ROM with crepitus. Negative Maximus?s. No ligamentous laxity. NVI. ? Results Reviewed Results Reviewed: /XR knee LT 2V 10/01/23 IMPRESSION: 1. No acute fracture or malalignment. 2. Trace joint effusion. Assessment & Plan Assessment & Plan (1) Internal derangement of right knee: Code(s): M23.91 - Unspecified internal derangement of right knee Category: Medical Plan Given her limited mobility and pain I will order an MRI of her right knee to further evaluate her meniscus and surrounding structures. She will see me back once the scan is complete. She will continue to wear her knee brace for stability till then. Orders: Orders MR knee LT wo con Today M17.12 - Unilateral primary osteoarthritis, left knee Patient Instructions: Scribed for Alejandro Carver PA-C, by Blas Gonzales biomedical analytical scientist, on 10/24/2023 at 1:00 PM EST.? I, Alejandro Carver PA-C, have personally reviewed and agree with the information entered by the scribe. Coding Level of Care Code Est Pt Level 3 (36037) Diagnoses Internal derangement of right knee M23.91
== END 2023-10-24 13:29 | disposition home or self-care (01) ==
PROVIDERS: PCP Registered Nurse; Visit Provider Physician Assistant
DX: M23.91 Unspecified internal derangement of right knee (principal)
CPT/HCPCS: 99213

== ENCOUNTER → 2023-10-24 12:43 | Outpatient (BNVA) | payer MEDICAID, SELFPAY | PROVIDERS: PCP Registered Nurse; Visit Provider Physician Assistant | DX: S80.02XD Contusion of left knee, subsequent encounter (principal); M17.12 Unilateral primary osteoarthritis, left knee; M23.91 Unspecified internal derangement of right knee; X58.XXXD Exposure to other specified factors, subsequent encounter; Z91.81 History of falling | CPT/HCPCS: 99212 ==

== ENCOUNTER 2023-10-27 11:02 | Outpatient (AMB) | payer MEDICAID, SELFPAY ==
--- NOTE | 2023-10-27 11:27 | MHC.OFFVIS ---
Vital Signs 10/27/23 11:28 Height 5 ft Weight 233 lb 11.04 oz BMI 45.6 BP 132/86 Blood Pressure Location Lt brachial Position Sitting Pulse 97 Pulse Source Pulse Oximeter Pulse Oximetry (%) 100 Oxygen Delivery Method Room Air Intake Visit Reasons: Asthma/PFT Follow Up Allergies acetic acid Allergy (Severe, Verified 10/27/23 11:31) Anaphylaxis from Vinegar raspberry [RASPBERRY] Allergy (Severe, Verified 10/27/23 11:31) Anaphylaxis turkey Allergy (Severe, Verified 10/27/23 11:31) Anaphylaxis azithromycin [AZITHROMYCIN] Allergy (Unknown, Verified 10/27/23 11:31) Vomiting cefuroxime [From Ceftin] Allergy (Unknown, Verified 10/27/23 11:31) Vomiting clonidine [CLONIDINE] Allergy (Unknown, Verified 10/27/23 11:31) Nausea and Vomiting dexlansoprazole [From Dexilant] Allergy (Unknown, Verified 10/27/23 11:31) Unknown methylphenidate [Methylphenidate] Allergy (Unknown, Verified 10/27/23 11:31) Unknown nortriptyline [NORTRIPTYLINE] Allergy (Unknown, Verified 10/27/23 11:31) Swelling pantoprazole [PANTOPRAZOLE] Allergy (Unknown, Verified 10/27/23 11:31) Unknown penicillin V Allergy (Unknown, Verified 10/27/23 11:31) Vomiting latex Allergy (Verified 10/27/23 11:31) Anaphylaxis shellfish derived Allergy (Verified 10/27/23 11:31) Anaphylaxis celecoxib [CELECOXIB] Adverse Reaction (Unknown, Verified 10/27/23 11:31) Nausea and Vomiting erythromycin base [ERYTHROMYCIN BASE] Adverse Reaction (Unknown, Verified 10/27/23 11:31) Hives, Vomiting lorazepam [From Ativan] Adverse Reaction (Unknown, Verified 10/27/23 11:31) Agitated Penicillins [PENICILLINS] Adverse Reaction (Unknown, Verified 10/27/23 11:31) Stomach Upset Epidural Needle Allergy (Unknown, Uncoded 10/27/23 11:31) Unknown HPI HPI Asthma/PFT Follow Up: Details: Fabiola is a pleasant 27 year old female, former minimal smoker, with underlying asthma, seasonal allergies, GERD and anxiety. She was initially referred by PCP for an intermittent productive cough with whitish sputum that was blood tinged starting in February. From February until April continued with productive cough and small hemoptysis which has spontaneously resolved. She attributes symptoms to her job and discontinued working there in April. Since then, she denies any respiratory symptoms. She denies any episodes of hemoptypsis. She denies any visits to urgent care or hospitalizations since the last visit. At the last visit she was sent for CXR which was unremarkable. Today she presents for a routine follow up. [facility] Medical History Frequent falls Cochlear implant in place Lesion of liver Hearing impaired Fibromyalgia Surgical History Hx of cholecystectomy [place] teeth removed Family History Mother Rheumatoid arthritis Osteoarthritis Father Arthritis Social History (Updated 10/27/23 @ 11:31 by Annamarie Pacheco CMA) Household Members: Family Housing: Apartment Do you presently have visiting nurse or other home services: No Alcohol intake: current Alcohol intake frequency: a few times a week Comment: pt refusing high fall risk interventions Patient Tobacco Use Status: Former Tobacco user Tobacco use type: Cigarette Years Smoked: 8 Current occupational status: student Review of Systems Const Denies chills, Denies excessive sweating, Denies fever(s), Denies headache(s) and Denies night sweats Eyes Denies dry eyes, Denies irritation and Denies itchy eyes ENT Reports Normal hearing present (cochlear implant), Denies headache(s), Denies nasal congestion, Denies nasal discharge, Denies post nasal drip and Denies sore throat Card Denies chest pain, Denies chest pain at rest, Denies chest pain with activity, Denies claudication, Denies leg edema, Denies dyspnea, Denies dyspnea on exertion, Denies orthopnea and Denies paroxysmal nocturnal dyspnea Resp Denies chest congestion, Denies cough, Denies hemoptysis, Denies excessive phlegm production, Denies pain on inspiration, Denies pain with cough, Denies dyspnea, Denies dyspnea on exertion, Denies stridor and Denies wheezing Musc Denies myalgias Neuro Reports Normal hearing present (cochlear implant) and Denies headache(s) Endo Denies excessive sweating Agus/Lymph Denies lymphadenopathy Aller/Immun Denies itchy eyes, Denies seasonal rhinorrhea and Denies wheezing Physical Exam Vital Signs: Last Vital Signs Pulse 97 10/27/23 11:28 BP 132/86 10/27/23 11:28 Pulse Ox 100 10/27/23 11:28 Oxygen Delivery Method Room Air 10/27/23 11:28 BMI result Body Mass Index 45.6 Const General: cooperative, healthy appearing, comfortable, no acute distress, well developed and alert Nutritional Appearance: obese Orientation/consciousness: patient oriented x3 Limitations: no limitations HEENT Head: Yes normal to inspection, Yes normocephalic and Yes atraumatic Ears: hearing grossly normal bilaterally and external ears normal Eyes General: appearance normal, both eyes and all related structures Eyelids: Yes eyelids normal Sclerae: sclerae normal EOM: EOMs intact bilaterally Neck Neck: Yes normal visual inspection and Yes no lymphadenopathy Lymphatic: no lymphadenopathy noted Chest Chest palpation & inspection: normal inspection of the chest Resp Effort & Inspection: normal respiratory effort, able to speak in complete sentences, no audible wheezes, no cough, no stridor, not tachypneic, no tripod positioning and no use of accessory muscles Auscultation: clear to auscultation bilaterally Cardio Jugular venous distension: no JVD Rate: regular rate Rhythm: regular rhythm Skin Other: warm, dry General skin exam: no rashes or lesions noted Neuro General: patient oriented x3 Cranial nerves: Yes Normal hearing present (cochlear implant) Cognition (Neuro): normal cognition Gait exam (Neuro): Normal gait present Extrem General: Yes normal to inspection, Yes capillary refill normal, Yes no clubbing, cyanosis or edema and Yes no pedal edema Psych Appearance: grossly normal and well kempt Speech and movement: Normal speech and movement present and Clear speech present Affect: normal affect Attitude: cooperative Thought process: Normal thought process present Thought content: Normal thought content present Insight: Good insight present (Psych) Judgement: Good judgement present (Psych) Assessment & Plan Assessment & Plan (1) Asthma: Code(s): J45.909 - Unspecified asthma, uncomplicated Category: Medical Plan At this time, patient denies any respiratory symptoms and has not had any episodes of hemoptysis since April. CXR unremarkable and RAST negative. Given patient is asymptomatic, recommended following up PRN. She is aware if she develops a teaspoon or more of hemoptysis to seek emergent care for thorough evaluation. All questions were answered and patient is in agreement of plan. Coding Level of Care Code Est Pt Level 3 (28527) Diagnoses Asthma J45.909
[2023-10-27 11:28] VITALS: BP 132/86; PULSE 97; O2SAT 100; BMI 45.6
== END 2023-10-27 11:45 | disposition home or self-care (01) ==
PROVIDERS: PCP Registered Nurse; Visit Provider Nurse Practitioner Family
DX: J45.909 Unspecified asthma, uncomplicated (principal)
CPT/HCPCS: 99213

== ENCOUNTER → 2023-10-27 11:02 | Outpatient (BNVA) | payer MEDICAID, SELFPAY | PROVIDERS: PCP Registered Nurse; Visit Provider Nurse Practitioner Family | DX: J45.909 Unspecified asthma, uncomplicated (principal); Z87.891 Personal history of nicotine dependence | CPT/HCPCS: 99212 ==

== ENCOUNTER 2023-12-27 18:33 | Outpatient (REF) | payer MEDICAID, SELFPAY ==
--- NOTE | ~2023-12-27 | MR_ITS ---
EXAMINATION: MR KNEE WITHOUT CONTRAST, LEFT CLINICAL INFORMATION: Unilateral primary osteoarthritis of the left knee. COMPARISON: None available. TECHNIQUE: MRI of the knee without contrast was performed using routine sequences on a high-field scanner. FINDINGS: MENISCI: Medial Meniscus: Intact. Lateral Meniscus: Intact. LIGAMENTS: Cruciate: There is a complete tear of the ACL near its femoral origin. Surrounding soft tissues are edematous. PCL is intact. Collateral: Mild edema signal around the MCL may correspond to a prior sprain. No tears. Fibular collateral ligament and posterolateral corner structures are intact. EXTENSOR MECHANISM: Intact. ARTICULAR CARTILAGE/BONE: Patellofemoral Compartment: Mild chondral thinning and fibrillation of the median ridge of the patella with a full-thickness chondral fissure. At the medial trochlear facet, there is partial-thickness cartilage loss with full-thickness chondral fissuring and associated subchondral edema signal. Medial Compartment: At the lateral third of the medial femoral condyle weightbearing surface, there is a full-thickness chondral fissure measuring 1.5 cm AP with minimal adjacent cartilage loss. Tiny marginal osteophytes. There is an osseous contusion at the posterior margin of the medial tibial plateau. Lateral Compartment: At the posterior margin of the lateral tibial plateau, there is a 2.6 x 0.7 cm area of cortical depression with minimal involvement of the posterior margin of the lateral tibial plateau articular surface. Cortical depression measures up to 2 mm. Minimal residual underlying subcortical marrow edema signal. JOINT FLUID AND BURSAE: Moderate-sized joint effusion. No Altamirano's cyst. MR/MR knee LT wo con IMPRESSION: 1. Complete tear of the ACL. 2. Mildly depressed fracture at the posterior margin of the lateral tibial plateau. 3. Osseous contusion at the posterior margin of the medial tibial plateau. 4. Mild tricompartmental arthrosis. 5. Moderate-sized joint effusion. 6. Intact menisci. Electronically signed by: Shoaib Moise MD 12/29/2023 05:46 PM EDT
== END 2023-12-27 18:34 | disposition home or self-care (01) ==
LOC: HO.MRI 18:33
PROVIDERS: PCP Registered Nurse; Visit Provider Physician Assistant
DX: M17.12 Unilateral primary osteoarthritis, left knee (principal)
CPT/HCPCS: 73721

== ENCOUNTER 2024-01-22 10:22 | Outpatient (AMB) | payer MEDICAID, SELFPAY ==
--- NOTE | 2024-01-22 10:26 | MHC.OFFVIS ---
Intake Visit Reasons: OV-LT knee MRI review Intake Note: Fabiola is a 27 year old female who presents to the office today for an MRI review of left knee. Patient reports ongoing discomfort and feels that her knee is unstable. She has intermittent pain. Finds some relief with ibuprofen. Allergies acetic acid Allergy (Severe, Verified 01/22/24 10:29) Anaphylaxis from Vinegar raspberry [RASPBERRY] Allergy (Severe, Verified 01/22/24 10:29) Anaphylaxis turkey Allergy (Severe, Verified 01/22/24 10:29) Anaphylaxis azithromycin [AZITHROMYCIN] Allergy (Unknown, Verified 01/22/24 10:29) Vomiting cefuroxime [From Ceftin] Allergy (Unknown, Verified 01/22/24 10:29) Vomiting clonidine [CLONIDINE] Allergy (Unknown, Verified 01/22/24 10:29) Nausea and Vomiting dexlansoprazole [From Dexilant] Allergy (Unknown, Verified 01/22/24 10:29) Unknown methylphenidate [Methylphenidate] Allergy (Unknown, Verified 01/22/24 10:29) Unknown nortriptyline [NORTRIPTYLINE] Allergy (Unknown, Verified 01/22/24 10:29) Swelling pantoprazole [PANTOPRAZOLE] Allergy (Unknown, Verified 01/22/24 10:29) Unknown penicillin V Allergy (Unknown, Verified 01/22/24 10:29) Vomiting latex Allergy (Verified 01/22/24 10:29) Anaphylaxis shellfish derived Allergy (Verified 01/22/24 10:29) Anaphylaxis celecoxib [CELECOXIB] Adverse Reaction (Unknown, Verified 01/22/24 10:29) Nausea and Vomiting erythromycin base [ERYTHROMYCIN BASE] Adverse Reaction (Unknown, Verified 01/22/24 10:29) Hives, Vomiting lorazepam [From Ativan] Adverse Reaction (Unknown, Verified 01/22/24 10:29) Agitated Penicillins [PENICILLINS] Adverse Reaction (Unknown, Verified 01/22/24 10:29) Stomach Upset Epidural Needle Allergy (Unknown, Uncoded 01/22/24 10:29) Unknown HPI HPI OV-LT knee MRI review: Details: 28-year-old female who returns to the office today for an MRI review of left knee. She continues to have discomfort, intermittent pain as well as instability in her knee. She finds mild relief with ibuprofen. She has a history of fibromyalgia. She does not have a history of diabetes. She is a cannabis smoker. [facility] Medical History Frequent falls Cochlear implant in place Lesion of liver Hearing impaired Fibromyalgia Surgical History Hx of cholecystectomy [place] teeth removed Family History Mother Rheumatoid arthritis Osteoarthritis Father Arthritis Social History (Updated 10/27/23 @ 11:31 by Annamarie Pacheco CMA) Household Members: Family Housing: Apartment Do you presently have visiting nurse or other home services: No Alcohol intake: current Alcohol intake frequency: a few times a week Comment: pt refusing high fall risk interventions Patient Tobacco Use Status: Former Tobacco user Tobacco use type: Cigarette Years Smoked: 8 Current occupational status: student Review of Systems Const All systems reviewed & are unremarkable except as noted in HPI and below Physical Exam Extrem Other: Right knee: Skin intact, no erythema or joint effusion. Full extension, flexion to 95 degrees. Positive anterior drawer Calf supple nontender Neurovascularly intact Results Reviewed Results Reviewed: MR knee LT wo con IMPRESSION: 1. Complete tear of the ACL. 2. Mildly depressed fracture at the posterior margin of the lateral tibial plateau. 3. Osseous contusion at the posterior margin of the medial tibial plateau. 4. Mild tricompartmental arthrosis. 5. Moderate-sized joint effusion. 6. Intact menisci. Assessment & Plan Assessment & Plan (1) Complete tear of anterior cruciate ligament of left knee: Code(s): S83.512A - Sprain of anterior cruciate ligament of left knee, initial encounter Category: Medical Plan I discussed the extent of the injury to the patient and options available which include surgical intervention. I explained the procedure in detail along with the length of recovery and rehab course. We reviewed home exercises which she should begin POD 1 (heel slides, SLR, passive extension). I explained to her the use of the brace. She should ambulate with the brace locked in extension, sleep with the brace on, and remove for exercises or resting. I explained the risk, benefits and alternatives. Risk including, but not limited to infection, blood clots, bleeding, ongoing pain and stiffness. I answered all their questions and with their understanding they have consented to move forward with left knee ACL reconstruction with autograft vs allograft with Dr. Rod. The patient will be booked accordingly. She was fit for a brace today. She will begin a course of physical therapy to work on prehab as she does have stairs in the home and would like to practice this preoperatively. Orders: Orders PT Evaluation and Treatment 01/22/24 S83.512A - Sprain of anterior cruciate ligament of left knee, initial encounter Patient Instructions: Scribed for Alejandro Carver PA-C, by Blas Gonzales medical care manager, on 01/22/2024 at 10:30 AM EST.? I, Alejandro Carver PA-C, have personally reviewed and agree with the information entered by the scribe. Coding Level of Care Code Est Pt Level 4 (41455) Complex EM visit Add On G2211 Diagnoses Complete tear of anterior cruciate ligament of left knee S83.512A
== END 2024-01-22 13:17 | disposition home or self-care (01) ==
PROVIDERS: PCP Registered Nurse; Visit Provider Physician Assistant
DX: S83.512A Sprain of anterior cruciate ligament of left knee, initial encounter (principal)
CPT/HCPCS: 99213

== ENCOUNTER → 2024-01-22 10:22 | Outpatient (BNVA) | payer MEDICAID, SELFPAY | PROVIDERS: PCP Registered Nurse; Visit Provider Physician Assistant | DX: S83.512A Sprain of anterior cruciate ligament of left knee, initial encounter (principal); M25.362 Other instability, left knee; X58.XXXA Exposure to other specified factors, initial encounter; Y93.9 Activity, unspecified; Y92.9 Unspecified place or not applicable; Y99.9 Unspecified external cause status | CPT/HCPCS: 99212 ==

== ENCOUNTER 2024-03-10 15:10 | Outpatient (RCR) | payer MEDICAID, SELFPAY ==
--- NOTE | 2024-02-11 14:14 | MHC.PT.EP ---
[facility] [place] Office [place] Office [place] Office [address] [phone] F: [phone] F: [phone] F: [phone] F: [phone] Physical Therapy Plan of Care Date of Evaluation: 02/11/24 Date of Surgery: TBD Diagnosis: L knee ACL tear; PT for ACL prehab ( Rx) Assessment: Fabiola is a 28 yo female who was referred by Alejandro Carver PA-C for Dx of LEFT knee ACL prehab after diagnosed with ACL tear per MRI. PT diagnosis is L knee pain and weakness d/t ACL tear. Impairments include decreased L knee ROM, decreased L knee strength, painful patellar mobility, and antalgic gait pattern resulting in their inability to squat, bend, perform reciprocal stair use, and lift without limitation. These deficits are impacting their ability to participate in household ADLs and work. Pt will benefit from skilled PT to address impairments and meet their goals. Frequency and Duration: The patient will be seen 1x/week for 4 weeks Short Term Goals: 2 weeks Patient will be able to perform HEP to independently manage condition. 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 Patient will increase L quad strength to 4/5 to be able to navigate stairs in preparation for surgery. Treatment Plan: Modalities to reduce pain, spasms and effusion. Manual therapy to restore motion and function. Therapeutic exercise to improve strength and flexibility. Neuromuscular re-education for posture and balance. Therapeutic activities to return to functional activities of daily living. Electronically signed by: Ryan Witt, PT, DPT Please sign and return to therapist. Thank you for your referral.
--- NOTE | 2024-03-10 16:16 | MHC.PT.DC ---
[facility] [place] Office [place] Office [place] Office [address] [phone] F: [phone] F: [phone] F: [phone] F: [phone] Physical Therapy Discharge Report Diagnosis: L knee ACL tear; PT for ACL prehab (MD Rx) Date of Surgery: TBD Date of Evaluation: 02/11/24 Date of Discharge: 03/10/24 Treatments to Date: 2 Cancellations to Date: 3 No Shows to Date: 0 Discharge Status: Independent with HEP Discharge Summary: Fabiola is still showing antalgic gait with keeping L knee in full knee extension throughout gait cycle as she reports fear of pain and buckling. Fabiola is seen for 1 FUP visit after PT evaluation. She appears to be compliant with HEP she was given. She was able to show proper form with use of stairs and AD that she was educated on her last visit. All her questions were answered in preparation for ACL surgery next month. She feels ready for discharge today for prehab ACL. Electronically signed by: Ryan Witt, PT, DPT Please sign and return to therapist. Thank you for your referral.
== END 2024-03-10 16:17 | disposition home or self-care (01) ==
LOC: HO.PT 15:10
PROVIDERS: PCP Registered Nurse; Visit Provider Physician Assistant
DX: S83.512A Sprain of anterior cruciate ligament of left knee, initial encounter (principal)
CPT/HCPCS: 97110; 97116; 97161; 97535

== ENCOUNTER 2024-03-19 14:21 | Outpatient (REF) | payer MEDICAID, SELFPAY ==
[2024-03-19 16:05] LABS: MANUAL DIFF FLAG NO
[2024-03-19 16:10] LABS: Basophils Absolute Auto 0.1 X10*3/uL (0.0-0.2); Basophils Percent Auto 0.5 % (0-2); Eosinophils Absolute Auto 0.2 X10*3/uL (0.0-0.4); Eosinophils Percent Auto 1.6 % (0-4); Hematocrit 38.9 % (37.0-47.0); Hemoglobin 14.2 g/dl (12.0-16.0); Imm Gran Abs Auto 0.03 X10*3/uL (0.00-0.03); Imm Gran Pct Auto 0.3 % (0.0-0.4); Mean Corpuscular HGB Conc 36.5 g/dl (31.0-35.0); Mean Corpuscular Hemoglobin 32.1 pg (27.0-33.0); Mean Platelet Volume 8.8 fL (9.4-12.3); Monocytes Absolute Auto 0.6 X10*3/uL (0.1-1.2); Monocytes Percent Auto 5.8 % (2-11); Neutrophils Absolute Auto 6.7 x10*3/uL (2.0-8.3); Neutrophils Percent Auto 70.8 % (45-73); Platelet Count 299 X10*3/uL (160-400); Red Blood Count 4.42 X10*6/uL (4.20-5.50); Red Cell Distribution Width 11.9 % (11.0-16.0); White Blood Count 9.5 X10*3/uL (4.8-10.8)
[2024-03-19 16:18] LABS: Prothrombin Time 11.6 SEC (10.9-12.4)
[2024-03-19 16:19] LABS: Anion Gap 9 (12-20); Blood Urea Nitrogen 12 mg/dL (9-16); Calcium 9.9 mg/dL (8.4-10.2); Carbon Dioxide 28 mmol/L (22-29); Chloride 105 mmol/L (96-108); Estimated Glomerular Filt Rate > 60; Glucose Random 81 mg/dL (60-115); Potassium 4.2 mmol/L (3.3-5.1); Sodium 138 mmol/L (135-145)
== END 2024-03-19 14:22 | disposition home or self-care (01) ==
LOC: HO.HHCL 14:21
PROVIDERS: Visit Provider Registered Nurse
DX: Z01.818 Encounter for other preprocedural examination (principal)
CPT/HCPCS: 36415; 80048; 85025; 85610

== ENCOUNTER 2024-04-08 13:17 | Outpatient (AMB) | payer MEDICAID, SELFPAY ==
--- NOTE | 2024-04-08 08:48 | MHC.OFFVIS ---
Vital Signs 04/08/24 13:30 Height 5 ft Weight 233 lb BMI 45.5 Intake Visit Reasons: Preop LT ACL reconstruction 04/14/24 NE Intake Note: Fabiola a 28 year old female who presents today for a preoperative LT ACL reconstruction, DOS 04/14/24 NE. Pain management agreement reviewed and signed. Allergies acetic acid Allergy (Severe, Verified 04/08/24 13:29) Anaphylaxis from Vinegar raspberry [RASPBERRY] Allergy (Severe, Verified 04/08/24 13:29) Anaphylaxis turkey Allergy (Severe, Verified 04/08/24 13:29) Anaphylaxis azithromycin [AZITHROMYCIN] Allergy (Unknown, Verified 04/08/24 13:29) Vomiting cefuroxime [From Ceftin] Allergy (Unknown, Verified 04/08/24 13:) Vomiting clonidine [CLONIDINE] Allergy (Unknown, Verified 04/08/24 13:29) Nausea and Vomiting dexlansoprazole [From Dexilant] Allergy (Unknown, Verified 04/08/24 13:29) Unknown methylphenidate [Methylphenidate] Allergy (Unknown, Verified 04/08/24 13:29) Unknown nortriptyline [NORTRIPTYLINE] Allergy (Unknown, Verified 04/08/24 13:29) Swelling pantoprazole [PANTOPRAZOLE] Allergy (Unknown, Verified 04/08/24 13:29) Unknown penicillin V Allergy (Unknown, Verified 04/08/24 13:29) Vomiting latex Allergy (Verified 04/08/24 13:29) Anaphylaxis shellfish derived Allergy (Verified 04/08/24 13:29) Anaphylaxis celecoxib [CELECOXIB] Adverse Reaction (Unknown, Verified 04/08/24 13:29) Nausea and Vomiting erythromycin base [ERYTHROMYCIN BASE] Adverse Reaction (Unknown, Verified 04/08/24 13:29) Hives, Vomiting lorazepam [From Ativan] Adverse Reaction (Unknown, Verified 04/08/24 13:29) Agitated Penicillins [PENICILLINS] Adverse Reaction (Unknown, Verified 04/08/24 13:29) Stomach Upset Epidural Needle Allergy (Unknown, Uncoded 04/08/24 13:29) Unknown Medication List - Last Reconciled 04/08/24 by Alejandro Carver PA-C albuterol sulfate 90 mcg/actuation 2 puffs inhalation Q4-6H PRN arm brace (Wrist Brace) put on left wrist at night, take off in daytime atomoxetine (Strattera) 18 mg PO DAILY cetirizine (All Day Allergy (cetirizine)) 10 mg PO DAILY PRN duloxetine 20 mg PO DAILY epinephrine 0.3 mg IM Q4H PRN gabapentin 600 mg PO TID lurasidone (Latuda) 20 mg PO QAM ondansetron 8 mg PO Q8H PRN topiramate 25 mg PO BID HPI HPI Preop LT ACL reconstruction 04/14/24 NE: Details: 28-year-old female presents to the office today for a preop visit left knee ACL reconstruction autograft versus allograft with Dr. Rod scheduled for 04/14/2024. She sustained an injury to the left knee resulting in an ACL tear. She has undergone physical therapy to work on range of motion and quad strength. She continues to have significant instability and limitations with daily activity therefore she has consented to proceed with surgical intervention. [facility] Medical History Frequent falls Cochlear implant in place Lesion of liver Hearing impaired Fibromyalgia Surgical History Hx of cholecystectomy [place] teeth removed Family History Mother Rheumatoid arthritis Osteoarthritis Father Arthritis Social History Household Members: Family Housing: Apartment Do you presently have visiting nurse or other home services: No Alcohol intake: current Alcohol intake frequency: a few times a week Comment: pt refusing high fall risk interventions Patient Tobacco Use Status: Former Tobacco user Tobacco use type: Cigarette Years Smoked: 8 Current occupational status: student Review of Systems Const All systems reviewed & are unremarkable except as noted in HPI and below Physical Exam Vital Signs: BMI result Body Mass Index 45.5 Const General: cooperative, healthy appearing, comfortable, no acute distress, well developed and alert Orientation/consciousness: patient oriented x3 HEENT Head: Yes normal to inspection, Yes normocephalic and Yes atraumatic Eyes General: appearance normal, both eyes and all related structures Neck Neck: Yes normal visual inspection and Yes no lymphadenopathy Resp Effort & Inspection: normal respiratory effort and able to speak in complete sentences Cardio Rate: regular rate Peripheral pulses: Peripheral pulses 2+ throughout GI Inspection: Yes normal to inspection Palpation (GI): Soft to palpation Skin General skin exam: no rashes or lesions noted Neuro General: patient oriented x3 Extrem Other: Right knee: Skin intact, no erythema or joint effusion. Full extension, flexion to 95 degrees. Positive anterior drawer Calf supple nontender Neurovascularly intact Psych Appearance: grossly normal Mental Status: mental status grossly normal Assessment & Plan Assessment & Plan (1) Complete tear of anterior cruciate ligament of left knee: Code(s): S83.512A - Sprain of anterior cruciate ligament of left knee, initial encounter Category: Medical Plan: I discussed the extent of the injury to the patient and options available which include surgical intervention. I explained the procedure in detail along with the length of recovery and rehab course. We reviewed home exercises which he should begin POD 1 ( heel slides, SLR, passive extension). I explained to him the use of the brace. He should ambulate with the brace locked in extension, sleep with the brace on , and remove for exercises or resting. I explained the risk, benefits and alternatives. Risk including, but not limited to infection, blood clots, bleeding, ongoing pain and stiffness. I answered all their questions and with their understanding they have consented to move forward with Left knee acl reconstruction with allograft VS autograft with Dr Rod. The patient will be booked accordingly. Of note she does have an ACL brace that will be taken to the OR on the day of surgery. She was fit for this brace at her last visit. Orders: Orders PT Evaluation and Treatment 04/06/24 S83.512A - Sprain of anterior cruciate ligament of left knee, initial encounter Coding Level of Care Code Est Pt Level 3 (53980) Complex EM visit Add On G2211 Diagnoses Complete tear of anterior cruciate ligament of left knee S83.512A
[2024-04-08 13:30] VITALS: BMI 45.5
== END 2024-04-08 13:40 | disposition home or self-care (01) ==
PROVIDERS: PCP Registered Nurse; Visit Provider Physician Assistant
DX: S83.512A Sprain of anterior cruciate ligament of left knee, initial encounter (principal)
CPT/HCPCS: 99213

== ENCOUNTER → 2024-04-08 13:17 | Outpatient (BNVA) | payer MEDICAID, SELFPAY | PROVIDERS: PCP Registered Nurse; Visit Provider Physician Assistant | DX: S83.512A Sprain of anterior cruciate ligament of left knee, initial encounter (principal) | CPT/HCPCS: 99212 ==

== ENCOUNTER 2024-04-14 07:48 | Day surgery (SDC) | payer MEDICAID, SELFPAY ==
[2024-04-12 08:24] VITALS: BMI 52.9
--- NOTE | 2024-04-12 14:05 | HO.ANESPROP2 ---
Documented by User: Vero Adkins NP 04/13/24 10:00 HPI - Anesthesia Eval Consult details Narrative: 28yo F for Left ACL reconstruction with Auto vs Allograft Medically optimized per PCP Multiple allergies Cochlear implant in situ PMFSH Active Problems Active Problems: All Active Problems Complete tear of anterior cruciate ligament of left knee (Acute) Internal derangement of right knee (Acute) Asthma (Acute) Reactive airway disease (Acute) Cough (Acute) Carpal tunnel syndrome of left wrist (Acute) History of laparoscopic cholecystectomy (Acute) Anemia (Acute) Carpal tunnel syndrome of right wrist (Acute) Ankle bone spur (Acute) High ankle sprain of right lower extremity (Acute) [place] teeth removed (Acute) Lesion of liver (Acute) Hearing impaired (Acute) Fibromyalgia (Acute) Past Medical History Medical History Seizures Frequent falls Cochlear implant in place Lesion of liver Hearing impaired Fibromyalgia Family History Family History Mother Rheumatoid arthritis Osteoarthritis Father Arthritis Family history of problems with anesthesia: No Surgical History Surgical History Hx of cholecystectomy [place] teeth removed History of Problems with Anesthesia: No Social History Social History Household Members: Family Housing: Apartment Do you presently have visiting nurse or other home services: No Alcohol intake: current Alcohol intake frequency: a few times a week Comment: pt refusing high fall risk interventions Patient Tobacco Use Status: Former Tobacco user Tobacco use type: Cigarette Years Smoked: 8 Use of substances other than those prescribed or required for medical reasons: No Are you DNR?: No Advance Directives: No Advance Directives Information Provided: Yes Current occupational status: student Meds Allergies Allergy/AdvReac Type Severity Reaction Status Date / Time acetic acid Allergy Severe Anaphylaxis Verified 04/08/24 13:29 from Vinegar raspberry [RASPBERRY] Allergy Severe Anaphylaxis Verified 04/08/24 13:29 turkey Allergy Severe Anaphylaxis Verified 04/08/24 13:29 azithromycin [AZITHROMYCIN] Allergy Unknown Vomiting Verified 04/08/24 13:29 cefuroxime [From Ceftin] Allergy Unknown Vomiting Verified 04/08/24 13:29 clonidine [CLONIDINE] Allergy Unknown Nausea and Verified 04/08/24 13:29 Vomiting dexlansoprazole Allergy Unknown Unknown Verified 04/08/24 13:29 [From Dexilant] methylphenidate Allergy Unknown Unknown Verified 04/08/24 13:29 [Methylphenidate] nortriptyline [NORTRIPTYLINE] Allergy Unknown Swelling Verified 04/08/24 13:29 pantoprazole [PANTOPRAZOLE] Allergy Unknown Unknown Verified 04/08/24 13:29 penicillin V Allergy Unknown Vomiting Verified 04/08/24 13:29 latex Allergy Anaphylaxis Verified 04/08/24 13:29 shellfish derived Allergy Anaphylaxis Verified 04/08/24 13:29 celecoxib [CELECOXIB] AdvReac Unknown Nausea and Verified 04/08/24 13:29 Vomiting erythromycin base AdvReac Unknown Hives, Verified 04/08/24 13:29 [ERYTHROMYCIN BASE] Vomiting lorazepam [From Ativan] AdvReac Unknown Agitated Verified 04/08/24 13:29 Penicillins [PENICILLINS] AdvReac Unknown Stomach Verified 04/08/24 13:29 Upset Epidural Needle Allergy Unknown Unknown Uncoded 04/08/24 13:29 Home Medications ?Medication ?Instructions ?Recorded ?Confirmed ?Last Taken ?Type gabapentin 600 mg tablet 600 mg PO TID 06/26/22 04/08/24 07/05/22 09:00 History atomoxetine 18 mg capsule 18 mg PO DAILY 07/05/22 04/08/24 07/05/22 History (Strattera) lurasidone 20 mg tablet (Latuda) 20 mg PO QAM 11/04/22 04/08/24 Unknown History topiramate 25 mg tablet 25 mg PO BID 11/07/22 04/08/24 11/07/22 History 25 mg cetirizine 10 mg tablet (All Day 10 mg PO DAILY PRN 05/28/23 04/08/24 Unknown History Allergy (cetirizine)) epinephrine 0.3 mg/0.3 mL 0.3 mg IM Q4H PRN 05/28/23 04/08/24 Unknown History injection, auto-injector ondansetron 8 mg disintegrating 8 mg PO Q8H PRN 05/28/23 04/08/24 Unknown History tablet duloxetine 20 mg capsule,delayed 20 mg PO DAILY 10/24/23 04/08/24 Unknown History release Exam Height,Weight and Vital Signs: Height 5 ft Weight 122.924 kg Pertinent Lab Results Pertinent Lab Results: Laboratory Tests 03/19/24 03/19/24 14:24 14:26 WBC 9.5 Hgb 14.2 Hct 38.9 Plt Count 299 Sodium 138 Potassium 4.2 Chloride 105 Carbon Dioxide 28 BUN 12 Creatinine 1.00 Assessment and Plan Assessment Anesthesia Assessment: Chart Reviewed Final Anesthetic Review Family History of Problems with Anesthesia: No History of Problems with Anesthesia: No Documented by User: Mechelle Sommer MD 04/14/24 09:55 PMFSH Past Medical History Medical History Seizures Frequent falls Cochlear implant in place Lesion of liver Hearing impaired Fibromyalgia Family History Family History Mother Rheumatoid arthritis Osteoarthritis Father Arthritis Surgical History Surgical History Hx of cholecystectomy [place] teeth removed Social History Social History Household Members: Family Housing: Apartment Do you presently have visiting nurse or other home services: No Alcohol intake: current Alcohol intake frequency: a few times a week Comment: pt refusing high fall risk interventions Patient Tobacco Use Status: Former Tobacco user Tobacco use type: Cigarette Years Smoked: 8 Use of substances other than those prescribed or required for medical reasons: No Are you DNR?: No Advance Directives: No Advance Directives Information Provided: Yes Current occupational status: student Meds Allergies Allergy/AdvReac Type Severity Reaction Status Date / Time acetic acid Allergy Severe Anaphylaxis Verified 04/08/24 13:29 from Vinegar raspberry [RASPBERRY] Allergy Severe Anaphylaxis Verified 04/08/24 13:29 turkey Allergy Severe Anaphylaxis Verified 04/08/24 13:29 azithromycin [AZITHROMYCIN] Allergy Unknown Vomiting Verified 04/08/24 13:29 cefuroxime [From Ceftin] Allergy Unknown Vomiting Verified 04/08/24 13:29 clonidine [CLONIDINE] Allergy Unknown Nausea and Verified 04/08/24 13:29 Vomiting dexlansoprazole Allergy Unknown Unknown Verified 04/08/24 13:29 [From Dexilant] methylphenidate Allergy Unknown Unknown Verified 04/08/24 13:29 [Methylphenidate] nortriptyline [NORTRIPTYLINE] Allergy Unknown Swelling Verified 04/08/24 13:29 pantoprazole [PANTOPRAZOLE] Allergy Unknown Unknown Verified 04/08/24 13:29 penicillin V Allergy Unknown Vomiting Verified 04/08/24 13:29 latex Allergy Anaphylaxis Verified 04/08/24 13:29 shellfish derived Allergy Anaphylaxis Verified 04/08/24 13:29 celecoxib [CELECOXIB] AdvReac Unknown Nausea and Verified 04/08/24 13:29 Vomiting erythromycin base AdvReac Unknown Hives, Verified 04/08/24 13:29 [ERYTHROMYCIN BASE] Vomiting lorazepam [From Ativan] AdvReac Unknown Agitated Verified 04/08/24 13:29 Penicillins [PENICILLINS] AdvReac Unknown Stomach Verified 04/08/24 13:29 Upset Epidural Needle Allergy Unknown Unknown Uncoded 04/08/24 13:29 Home Medications ?Medication ?Instructions ?Recorded ?Confirmed ?Last Taken ?Type gabapentin 600 mg tablet 600 mg PO TID 06/26/22 04/08/24 07/05/22 09:00 History atomoxetine 18 mg capsule 18 mg PO DAILY 07/05/22 04/08/24 07/05/22 History (Strattera) lurasidone 20 mg tablet (Latuda) 20 mg PO QAM 11/04/22 04/08/24 Unknown History topiramate 25 mg tablet 25 mg PO BID 11/07/22 04/08/24 11/07/22 History 25 mg cetirizine 10 mg tablet (All Day 10 mg PO DAILY PRN 05/28/23 04/08/24 Unknown History Allergy (cetirizine)) epinephrine 0.3 mg/0.3 mL 0.3 mg IM Q4H PRN 05/28/23 04/08/24 Unknown History injection, auto-injector ondansetron 8 mg disintegrating 8 mg PO Q8H PRN 05/28/23 04/08/24 Unknown History tablet duloxetine 20 mg capsule,delayed 20 mg PO DAILY 10/24/23 04/08/24 Unknown History release Exam Airway Mallampati Class: II TM Dist: >3cm Neck ROM: Full Heart: rrr Lungs: cta Assessment and Plan Assessment Anesthesia Assessment: Anesthesia Plan Discussed Final Anesthetic Review NPO: Yes ASA Class: III Final Preanesthetic Review: No Changes in Pt Med Stat, Meds/Allgs Chart Reviewed, Consent Obtained/Reviewed and Anes Risks/Benef Reviewed Patient Risk: Intermediate Procedure Risk: Intermediate Anesthetic Plan Anesthetic Plan: GA Disposition: Standard PACU
[2024-04-14] VITALS (10 sets, daily range): BP systolic 114–152; BP diastolic 74–100; PULSE 62–88; RESP 16; TEMP 36.1–36.8; O2SAT 91–100; BMI 52.3
[2024-04-14 08:36] LABS: UPreg QC Valid YES; Urine Pregnancy NEGATIVE (NEGATIVE)
[2024-04-14] MEDS: Lactated Ringers 1,000 ML 100 ML IVCONT (08:53)
--- NOTE | 2024-04-14 09:18 | MHC.SHP ---
Pre-Procedural Eval Section A - 24 Hr Update-Section A only Date of Service: 04/14/24 The patient is an INPATIENT: No Changes since office visit: No Cold of Flu in the past 2 weeks, No New Medical Problems, No Changes in Medication and No Patient answered all questions The patient has been examined within 24 hours of the surgical procedure. The History & Physical has been completed within 30 days and I have reviewed it.: Yes Section B - Complete if H&P > 30 days Chief Complaint: Sprain of anterior cruciate ligament of left knee, Allergies: Allergies Allergy/AdvReac Type Severity Reaction Status Date / Time acetic acid Allergy Severe Anaphylaxis Verified 04/08/24 13:29 from Vinegar raspberry [RASPBERRY] Allergy Severe Anaphylaxis Verified 04/08/24 13:29 turkey Allergy Severe Anaphylaxis Verified 04/08/24 13:29 azithromycin [AZITHROMYCIN] Allergy Unknown Vomiting Verified 04/08/24 13:29 cefuroxime [From Ceftin] Allergy Unknown Vomiting Verified 04/08/24 13:29 clonidine [CLONIDINE] Allergy Unknown Nausea and Verified 04/08/24 13:29 Vomiting dexlansoprazole Allergy Unknown Unknown Verified 04/08/24 13:29 [From Dexilant] methylphenidate Allergy Unknown Unknown Verified 04/08/24 13:29 [Methylphenidate] nortriptyline [NORTRIPTYLINE] Allergy Unknown Swelling Verified 04/08/24 13:29 pantoprazole [PANTOPRAZOLE] Allergy Unknown Unknown Verified 04/08/24 13:29 penicillin V Allergy Unknown Vomiting Verified 04/08/24 13:29 latex Allergy Anaphylaxis Verified 04/08/24 13:29 shellfish derived Allergy Anaphylaxis Verified 04/08/24 13:29 celecoxib [CELECOXIB] AdvReac Unknown Nausea and Verified 04/08/24 13:29 Vomiting erythromycin base AdvReac Unknown Hives, Verified 04/08/24 13:29 [ERYTHROMYCIN BASE] Vomiting lorazepam [From Ativan] AdvReac Unknown Agitated Verified 04/08/24 13:29 Penicillins [PENICILLINS] AdvReac Unknown Stomach Verified 04/08/24 13:29 Upset Epidural Needle Allergy Unknown Unknown Uncoded 04/08/24 13:29 Plan I have reviewed the history and physical and performed a pertinent physical examination on my patient. No changes have occurred unless specified. Time Spent With Patient Time: Total time managing care of this patient today ____ minutes.
--- NOTE | 2024-04-14 12:13 | P.BOP_ITS ---
Brief Operative Note Date of Service: 04/14/24 Pre-op diagnosis: Left ACL rupture Post-op diagnosis: same Procedure: L ACL reconstruction with Allograft Implants: Sandoval adn Nephew endobutton with Tibialis allograft and 10x 25 tibial interference screw Surgeon: Oneal Rod MD Anesthesia: GETA and local Was an Plate And Frame Filter Operator used for this Procedure?: Yes Plate And Frame Filter Operator: Conchis Elias Estimated blood loss (mL): 20 Tourniquet time (min): 40 IV fluids (mL): 800 Pathology: none sent Condition: stable Disposition: PACU
[2024-04-14] MEDS: Haloperidol Lactate 5 MG/ML VIAL 1 MG IVPUSH (13:55)
[2024-04-14] MEDS: Ondansetron ODT 4 MG TAB.RAPDIS TRANSLINGU (15:39)
--- NOTE | 2024-04-15 10:54 | P.OP_ITS ---
Operative Note Operative Note Date of Service: 04/14/24 Narrative: Date of Service: 04/14/24 Pre-op diagnosis: Left ACL rupture Post-op diagnosis: same Procedure: L ACL reconstruction with Allograft Implants: Sandoval adn Nephew endobutton with Tibialis allograft and 10x 25 tibial interfe rence screw Surgeon: Oneal Rod MD Anesthesia: GETA and local Was an Grinding Machine Operator Portable used for this Procedure?: Yes Grinding Machine Operator Portable: Conchis Elias Estimated blood loss (mL): 20 Tourniquet time (min): 40 IV fluids (mL): 800 Pathology: none sent Condition: stable Disposition: PACU Procedure in detail: Patient was brought to the operating room placed supine on the arthroscopic table and prepped and draped in standard sterile fashion. A time-out was called to identify proper site proper procedure proper surgeon and IV antibiotics per weight were administered. Under anesthesia she had a + pivot shift. I began by exsanguinating the limb and insufflating tourniquet to 300 mm Hg. Then made a standard anterolateral stab incision. The knee was insufflated with water and 30 degree arthroscope was placed. There was gnormal PF cartilage and overall suprapatellar pouch and the gutters were clean. I descended into the medial compartment where I made my far medial portal under direct visualization. There was a normal medial meniscus with no instability. The root was intact but there was a grade 1-2 lesion of the anterior WB portion of the MFC (approximately 1 cm x 1 cm) . The lateral meniscus was also normal. I then examined the notch where there was a + empty wall sign and an intact PCL. I debrided the stump and acl footprint and performed a limited notchplasty. I then, through a far AM portal and a 7mm behind the back guide, drilled a k-wire through the LFC with the knee in hyper-flexion. I measured the tunnel as a 34 and then after sizing the allograft on the back table drilled a 25 mm tunnel with an 10 mm reamer. The final 6 mm was drilled with a 4.5 reamer. I then pulled a suture through the femoral tunnel and turned my attention to the tibia. I did examine the femoral tunnel and was satisfied with the posterior wall and its location low and medial at the anatomic footprint. I placed my tibial drill guide in 55 deg and, through a anteromedial inc just lateral to the tibial tubercle placed a k-wire into the notch exiting just medial to the anterior horn insertion of the lateral meniscus. I then over-reamed with an 10 reamer. I cleaned the tunnels up with a shaver. On the back table I whip-stitched the allograft to fit through an 10 aperture and attached the femoral button to the looped end. I placed the graft on 15lbs of tension for 10 minutes. I then passed the allograft through the tibial tunnel and femoral tunnel and flipped the button. I cycled the knee about 10-15 cycles and then placed a tibial interference screw with the knee in hyper- extension while holding the graft taught. Once I was satisfied that the interference screw was buried I examined the ACL and the medial meniscus repair. The repair was stable and the ACL was not impinging and there was a negative pivot shift. I then removed all instrumentation and closed the incisions with nylon. Patient was then placed in sterile dressings and a hinged knee brace. She was then extubated brought recovery room stable condition. There were no known complications.
== END 2024-04-14 15:57 | disposition home or self-care (01) ==
LOC: HO.SSS 07:49
PROVIDERS: Nurse Practitioner; PCP Registered Nurse; Visit Provider Orthopaedic Surgery
PROC: (CPT 27428; principal; 2024-04-14 11:20)
DX: S83.512A Sprain of anterior cruciate ligament of left knee, initial encounter (principal); X58.XXXA Exposure to other specified factors, initial encounter; Y93.9 Activity, unspecified; Y92.9 Unspecified place or not applicable; Y99.9 Unspecified external cause status; M23.52 Chronic instability of knee, left knee; R11.0 Nausea; M79.7 Fibromyalgia; R56.9 Unspecified convulsions; Z91.81 History of falling; H91.90 Unspecified hearing loss, unspecified ear; Z79.899 Other long term (current) drug therapy; Z88.0 Allergy status to penicillin; Z88.8 Allergy status to other drugs, medicaments and biological substances; Z91.040 Latex allergy status; Z87.891 Personal history of nicotine dependence
CPT/HCPCS: 29888; 81025; C1713; C1762; J0131; J0171; J0690; J1100; J1171; J1630; J1885; J2003; J2405; J2704; J2795; J3010

== ENCOUNTER → 2024-04-14 07:48 | Outpatient (BNV) | payer MEDICAID, SELFPAY | PROVIDERS: PCP Registered Nurse; Visit Provider Orthopaedic Surgery | DX: S83.512A Sprain of anterior cruciate ligament of left knee, initial encounter (principal) | CPT/HCPCS: 29888 ==

== ENCOUNTER 2024-04-22 08:58 | Outpatient (REF) | payer MEDICAID, SELFPAY ==
--- NOTE | ~2024-04-22 | XR_ITS ---
EXAMINATION: XR KNEE, LEFT CLINICAL INFORMATION: M25.569 - Pain in unspecified knee COMPARISON: October 01, 2023 TECHNIQUE: Single view of the left knee. FINDINGS: Joint space narrowing involving the medial compartment. There is a tunneling of the proximal metaphysis/diaphysis junction of the tibia and a metallic structure overlapping the superior margin of the lateral femoral condyle. No acute cortical disruption or gross malalignment. XR/XR knee LT 1V IMPRESSION: Medial compartmental osteoarthrosis. Probable status post ACL repair Electronically signed by: Guille Emmanuel MD 04/23/2024 12:10 PM NAM
== END 2024-04-22 08:59 | disposition home or self-care (01) ==
LOC: HO.HOSX 08:58
PROVIDERS: Visit Provider Physician Assistant
DX: M25.562 Pain in left knee (principal); Z98.890 Other specified postprocedural states
CPT/HCPCS: 73560; 99212

== ENCOUNTER 2024-04-22 12:58 | Outpatient (AMB) | payer MEDICAID, SELFPAY ==
--- NOTE | 2024-04-22 13:08 | A.OFFVIS_ITS ---
Intake Visit Reasons: PO LT ACL recon. w/ Allograft 04/14/24 NE Intake Note: Fabiola is a 28 year old female who presents today for a post op appointment s/p LT ACL reconstruction with Allograft 04/14/24 NE. Patient reports she is doing well, however she is feeling uncomfortable in the brace when she is sleeping. She mentions that she is having little to no pain. Allergies acetic acid Allergy (Severe, Verified 04/22/24 13:14) Anaphylaxis from Vinegar raspberry [RASPBERRY] Allergy (Severe, Verified 04/22/24 13:14) Anaphylaxis turkey Allergy (Severe, Verified 04/22/24 13:14) Anaphylaxis azithromycin [AZITHROMYCIN] Allergy (Unknown, Verified 04/22/24 13:14) Vomiting cefuroxime [From Ceftin] Allergy (Unknown, Verified 04/22/24 13:14) Vomiting clonidine [CLONIDINE] Allergy (Unknown, Verified 04/22/24 13:14) Nausea and Vomiting dexlansoprazole [From Dexilant] Allergy (Unknown, Verified 04/22/24 13:14) Unknown methylphenidate [Methylphenidate] Allergy (Unknown, Verified 04/22/24 13:14) Unknown nortriptyline [NORTRIPTYLINE] Allergy (Unknown, Verified 04/22/24 13:14) Swelling pantoprazole [PANTOPRAZOLE] Allergy (Unknown, Verified 04/22/24 13:14) Unknown penicillin V Allergy (Unknown, Verified 04/22/24 13:14) Vomiting latex Allergy (Verified 04/22/24 13:14) Anaphylaxis shellfish derived Allergy (Verified 04/22/24 13:14) Anaphylaxis celecoxib [CELECOXIB] Adverse Reaction (Unknown, Verified 04/22/24 13:14) Nausea and Vomiting erythromycin base [ERYTHROMYCIN BASE] Adverse Reaction (Unknown, Verified 04/22/24 13:14) Hives, Vomiting lorazepam [From Ativan] Adverse Reaction (Unknown, Verified 04/22/24 13:14) Agitated Penicillins [PENICILLINS] Adverse Reaction (Unknown, Verified 04/22/24 13:14) Stomach Upset Epidural Needle Allergy (Unknown, Uncoded 04/08/24 13:29) Unknown HPI HPI PO LT ACL recon. w/ Allograft 04/14/24 NE: Details: Patient presents to the office today status post left knee ACL reconstruction with allograft on 04/14/[address] Rod. Patient is wearing the brace while in the office today. She is no longer using the crutches to assist with ambulation. [facility] Medical History Seizures Frequent falls Cochlear implant in place Lesion of liver Hearing impaired Fibromyalgia Surgical History Hx of cholecystectomy [place] teeth removed Family History Mother Rheumatoid arthritis Osteoarthritis Father Arthritis Social History Household Members: Family Housing: Apartment Do you presently have visiting nurse or other home services: No Alcohol intake: current Alcohol intake frequency: a few times a week Comment: pt refusing high fall risk interventions Patient Tobacco Use Status: Former Tobacco user Tobacco use type: Cigarette Years Smoked: 8 Current occupational status: student Review of Systems Const All systems reviewed & are unremarkable except as noted in HPI and below Physical Exam Const General: cooperative, healthy appearing and no acute distress Resp Effort & Inspection: normal respiratory effort and able to speak in complete sentences Cardio Rate: regular rate Peripheral pulses: Peripheral pulses 2+ throughout Skin Lesions: no lesions Rashes: no rashes Extrem Other: Left knee incision sites are clean dry and intact. No surrounding erythema or drainage. No signs of infection. Able to dorsiflex and plantar flex. NVI. Assessment & Plan Assessment & Plan (1) Status post reconstruction of anterior cruciate ligament: Code(s): Z98.890 - Other specified postprocedural states Category: Surgical Plan Ms. Varela is a 28-year-old female who presents to the office today status post left knee ACL reconstruction with allograft on 04/14/[address] Rod. Patient is wearing the brace while in the office today. She is no longer using the crutches to assist with ambulation. While the office today, sutures removed. Steri-Strips were applied. Patient is to attend physical therapy on 05/04/2024. She will remain in the brace at all times while ambulating. Anticipate discontinuing brace use at 6 weeks once quad control allows. Her follow-up will be in 4 weeks, sooner if needed. X-rays obtained in the office today of the left knee were reviewed by me intact Endobutton with proper placement. Orders: Orders XR knee LT 1V Today M25.569 - Pain in unspecified knee Coding Level of Care Code Global (95916) Diagnoses Status post reconstruction of anterior cruciate ligament Z98.890
== END 2024-04-22 13:46 | disposition home or self-care (01) ==
PROVIDERS: PCP Registered Nurse; Visit Provider Physician Assistant
DX: Z98.890 Other specified postprocedural states (principal)
CPT/HCPCS: 99024

== ENCOUNTER 2024-05-20 12:33 | Outpatient (AMB) | payer MEDICAID, SELFPAY ==
--- NOTE | 2024-05-20 12:34 | A.OFFVIS_ITS ---
Vital Signs 05/20/24 12:35 Height 4 ft 11 in Weight 253 lb 4 oz BMI 51.1 Intake Visit Reasons: PO LT ACL recon. w/ Allograft 04/14/24 NE Intake Note: Fabiola is a 28 year old female who presents today for a post op appointment one month s/p LT ACL reconstruction with Allograft 04/14/24 NE. Patient reports that she is doing well, no concerns. Patient reports that she fell out of the tub on friday - now her right hip is painful. Allergies acetic acid Allergy (Severe, Verified 04/22/24 13:14) Anaphylaxis from Vinegar raspberry [RASPBERRY] Allergy (Severe, Verified 04/22/24 13:14) Anaphylaxis turkey Allergy (Severe, Verified 04/22/24 13:14) Anaphylaxis azithromycin [AZITHROMYCIN] Allergy (Unknown, Verified 04/22/24 13:14) Vomiting cefuroxime [From Ceftin] Allergy (Unknown, Verified 04/22/24 13:14) Vomiting clonidine [CLONIDINE] Allergy (Unknown, Verified 04/22/24 13:14) Nausea and Vomiting dexlansoprazole [From Dexilant] Allergy (Unknown, Verified 04/22/24 13:14) Unknown methylphenidate [Methylphenidate] Allergy (Unknown, Verified 04/22/24 13:14) Unknown nortriptyline [NORTRIPTYLINE] Allergy (Unknown, Verified 04/22/24 13:14) Swelling pantoprazole [PANTOPRAZOLE] Allergy (Unknown, Verified 04/22/24 13:14) Unknown penicillin V Allergy (Unknown, Verified 04/22/24 13:14) Vomiting latex Allergy (Verified 04/22/24 13:14) Anaphylaxis shellfish derived Allergy (Verified 04/22/24 13:14) Anaphylaxis celecoxib [CELECOXIB] Adverse Reaction (Unknown, Verified 04/22/24 13:14) Nausea and Vomiting erythromycin base [ERYTHROMYCIN BASE] Adverse Reaction (Unknown, Verified 04/22/24 13:14) Hives, Vomiting lorazepam [From Ativan] Adverse Reaction (Unknown, Verified 04/22/24 13:14) Agitated Penicillins [PENICILLINS] Adverse Reaction (Unknown, Verified 04/22/24 13:14) Stomach Upset Epidural Needle Allergy (Unknown, Uncoded 04/08/24 13:29) Unknown HPI HPI PO LT ACL recon. w/ Allograft 04/14/24 NE: Details: 5 weeks post op feeling well. She is going to PT and has no complaints. Knee brace is not staying on given her anatomy. [facility] Medical History Seizures Frequent falls Cochlear implant in place Lesion of liver Hearing impaired Fibromyalgia Surgical History Hx of cholecystectomy [place] teeth removed Family History Mother Rheumatoid arthritis Osteoarthritis Father Arthritis Social History Household Members: Family Housing: Apartment Do you presently have visiting nurse or other home services: No Alcohol intake: current Alcohol intake frequency: a few times a week Comment: pt refusing high fall risk interventions Patient Tobacco Use Status: Former Tobacco user Tobacco use type: Cigarette Years Smoked: 8 Current occupational status: student Physical Exam Vital Signs: BMI result Body Mass Index 51.1 Extrem Other: 0-130 deg motion nl gait stable colton's Assessment & Plan Assessment & Plan (1) Status post reconstruction of anterior cruciate ligament: Code(s): Z98.890 - Other specified postprocedural states Category: Surgical Plan: Left knee ACL reconstruction 5 weeks ago. She is compliant with PT and doing well. The knee brace is hindering her ability to walk normally. She may D/C this. She understands the importance of avoiding falls and twisting activities. Unfortunately I think the brace is actually increasing her risk of falls. Continue PT and f/u in 6 weeks. Coding Level of Care Code Global (83614) Diagnoses Status post reconstruction of anterior cruciate ligament Z98.890
[2024-05-20 12:35] VITALS: BMI 51.1
== END 2024-05-20 13:07 | disposition home or self-care (01) ==
PROVIDERS: PCP Registered Nurse; Visit Provider Orthopaedic Surgery
DX: Z98.890 Other specified postprocedural states (principal)
CPT/HCPCS: 99024

== ENCOUNTER → 2024-05-20 12:33 | Outpatient (BNVA) | payer MEDICAID, SELFPAY | PROVIDERS: PCP Registered Nurse; Visit Provider Orthopaedic Surgery | DX: Z98.890 Other specified postprocedural states (principal) | CPT/HCPCS: 99212 ==

== ENCOUNTER 2024-06-07 10:24 | Outpatient (AMB) | payer MEDICAID, SELFPAY ==
--- NOTE | 2024-06-07 10:27 | A.OFFVIS_ITS ---
Vital Signs 06/07/24 10:27 Height 41 ft Weight 253 lb BMI 0.7 Intake Visit Reasons: PO - f/u LT ACL recon. w/ Allograft 04/14/24 NE Intake Note: Fabiola is a 28 year old female who presents today for a post op appointment one month s/p LT ACL reconstruction with Allograft 04/14/24 NE. Patient reports that she has been feeling instability and weakness of the left knee, she has resumed wearing her brace. She continues to work with physical therapy. She reports that she is having increased pain in the medial aspect of the knee, also with some concerns of wekaness. These symptoms have been present for about a week now. Allergies acetic acid Allergy (Severe, Verified 04/22/24 13:14) Anaphylaxis from Vinegar raspberry [RASPBERRY] Allergy (Severe, Verified 04/22/24 13:14) Anaphylaxis turkey Allergy (Severe, Verified 04/22/24 13:14) Anaphylaxis azithromycin [AZITHROMYCIN] Allergy (Unknown, Verified 04/22/24 13:14) Vomiting cefuroxime [From Ceftin] Allergy (Unknown, Verified 04/22/24 13:14) Vomiting clonidine [CLONIDINE] Allergy (Unknown, Verified 04/22/24 13:14) Nausea and Vomiting dexlansoprazole [From Dexilant] Allergy (Unknown, Verified 04/22/24 13:14) Unknown methylphenidate [Methylphenidate] Allergy (Unknown, Verified 04/22/24 13:14) Unknown nortriptyline [NORTRIPTYLINE] Allergy (Unknown, Verified 04/22/24 13:14) Swelling pantoprazole [PANTOPRAZOLE] Allergy (Unknown, Verified 04/22/24 13:14) Unknown penicillin V Allergy (Unknown, Verified 04/22/24 13:14) Vomiting latex Allergy (Verified 04/22/24 13:14) Anaphylaxis shellfish derived Allergy (Verified 04/22/24 13:14) Anaphylaxis celecoxib [CELECOXIB] Adverse Reaction (Unknown, Verified 04/22/24 13:14) Nausea and Vomiting erythromycin base [ERYTHROMYCIN BASE] Adverse Reaction (Unknown, Verified 04/22/24 13:14) Hives, Vomiting lorazepam [From Ativan] Adverse Reaction (Unknown, Verified 04/22/24 13:14) Agitated Penicillins [PENICILLINS] Adverse Reaction (Unknown, Verified 04/22/24 13:14) Stomach Upset Epidural Needle Allergy (Unknown, Uncoded 04/08/24 13:29) Unknown HPI HPI PO - f/u LT ACL recon. w/ Allograft 04/14/24 NE: Details: Fabiola is a 28 year old female who presents today for a post op appointment one month s/p LT ACL reconstruction with Allograft 04/14/24 NE. Patient reports that she has been feeling instability and weakness of the left knee, she has resumed wearing her brace. She continues to work with physical therapy. She reports that she is having increased pain in the medial aspect of the knee, also with some concerns of wekaness. These symptoms have been present for about a week now. [facility] Medical History Seizures Frequent falls Cochlear implant in place Lesion of liver Hearing impaired Fibromyalgia Surgical History Hx of cholecystectomy Craig teeth removed Family History Mother Rheumatoid arthritis Osteoarthritis Father Arthritis Social History Household Members: Family Housing: Apartment Do you presently have visiting nurse or other home services: No Alcohol intake: current Alcohol intake frequency: a few times a week Comment: pt refusing high fall risk interventions Patient Tobacco Use Status: Former Tobacco user Tobacco use type: Cigarette Years Smoked: 8 Current occupational status: student Physical Exam Vital Signs: BMI result Body Mass Index 0.7 Extrem Other: Incision is clean dry and intact. Stable Babak's. No effusion. Full range of motion. Normal gait. Assessment & Plan Assessment & Plan (1) Status post reconstruction of anterior cruciate ligament: Code(s): Z98.890 - Other specified postprocedural states Category: Surgical Plan: Stable exam. Patient has had a hard time adhering to postop restrictions and been very active in moving and has some ongoing interpersonal issues that have made her recovery difficult. Continue PT and follow up in proximally 4 weeks Orders: Orders XR knee LT 2V Today Z98.890 - Other specified postprocedural states Coding Level of Care Code Global (38320) Diagnoses Status post reconstruction of anterior cruciate ligament Z98.890
--- OUTSIDE RECORDS SUMMARY | 2024-06-07 12:01 | XMS_ITS | Encounter Summary ---
Author Organization [facility] Address [address] [place] [address] Phone Care Team Providers Care Organizational Development Director Name Role Phone Ari Latham MD Primary Care Provider [phone] Encounter Details Date Type Department Care Team (Late st Contact Info) Description 11/21/2016 Conversion Encounter [facility] [address] [place] [address] Social History Tobacco Use Types Packs/Day Years Used Date Smoking Tobacco: Light Smoker Comments:Light tobacco smoke r Comments Unknown Sex and Gender Information Value Date Recorded Sex Assigned at Not on file Legal Sex Female 4:56 PM EDT Gender Identity Not on file Sexual Orientation Not on file documented as of this encounter Plan of Treatment Not on file documented as of this encounter Visit Diagnoses Not on filedocumented in this encounter Care Teams Organizational Development Director Relationship Specialty Start Date End Date Ari Latham MD [address] [place] [address] PCP - General 11/15/16 07/07/22 documented as of this encounter
--- OUTSIDE RECORDS SUMMARY | 2024-06-07 12:01 | XMS_ITS | Clinical Summary ---
Author Organization [facility] Address [address] [place] [address] Care Team Providers Care Recreation Therapy Teacher Name Role Phone Community, Pcp Primary Care Provider Unavailabl e Allergies Active Allergy Reactions Severity Noted Date Comments Ativan 01/05/2015 Azithromycin 01/10/2015 Reaction not mentioned Cefuroxime 12/01/2014 vomiting Celecoxib 01/10/2015 Reaction not mentioned Clonidine 01/10/2015 Reaction not mentioned Methylphenidate 01/10/2015 Reaction not mentioned Dexilant 01/10/2015 Reaction not mentioned Erythromycin 01/05/2015 Gabapentin 12/01/2014 Breathing problems Nortriptyline 01/10/2015 hives Pamelor 01/05/2015 Pantoprazole 01/13/2015 Penicillins 12/01/2014 swelling Raspberry 01/13/2015 Shellfish Allergy 01/13/2015 Medications Medication Sig Dispensed Refills Start Date End Date Status EPINEPHrine (EPIPEN 2-HILDA) 0.3 MG/0.3ML Solution Auto-injector Inject 1 Applicator as directed as needed (allergic reaction). 1 Each 3 01/13/2015 Active ondansetron (ZOFRAN) 4 MG tablet Take 1 Tab by mouth every 8 hours as needed for Nausea. 10 Tab 0 05/22/2016 Active lorazepam (ATIVAN) 0.5 MG tablet Take 3 Tabs by mouth daily as needed. 0 Active ketoconazole (NIZORAL) 2 % cream Apply cream to affected once a day for 2 weeks. 30 g 0 01/29/2017 Active ALBUTEROL SULFATE (PROAIR HFA) 108 (90 BASE) MCG/ACT Aero Soln Inhale 2 Puffs into the lungs every 4 hours as needed for Cough, Wheezing or Shortness of Breath. 1 Inhaler 0 11/13/2017 Active topiramate (TOPAMAX) 25 MG tablet Take 1 Tab by mouth 2 times daily. 60 Tab 0 11/13/2017 Active Active Problems Problem Noted Date TELIDA (hard of hearing) 01/16/2015 Learning disorder 01/10/2015 Overview: Expressive language disorder Chiari I malformation 01/10/2015 Overview: MRI 2008 Focal nodular hyperplasia of liver 01/10 Overview: Wedge resection of liver 05/2012 GERD (gastroesophageal reflux disease) 1 Seasonal allergies 01/05/2015 ADHD (attention deficit hyperactivity di sorder) 01/05/2015 PTSD (post-traumatic stress disorder) Sensorineural hearing loss 12/30/2014 Overview: Bilateral severe, bilateral hearing aides Anxiety Major depression Overview: [facility] Fibromyalgia Asthma Tobacco use Immunizations Name Administration Dates Next Due DTaP 08/04/1998, 6,08/04/1994,06/04/1994,02/07 HIB 05/07/1995,08/04/1994,06/04/1994 ,03/06/1994 HPV (Gardasil) 08/06/2007,03/25/2007,01/23/2007 Hepatitis B-3 Dose (<19yrs) 10/04/1994, 4,01/04/1994 Hepatitis-A (>19YRS) 10/05/2014 Influenza (> 6 Months) 03/07/2014,03/08/2013,10/2010 MMR (Uqxrgnz-Blhkm-Bdziryo) 02/04/1998, 6 Meningococcal (Menactra) 01/23/2007 Polio (OPV) 08/04/1998,08/04/1994,06/04/1994 ,03/06/1994 Tdap 11/13/2017,01/23/2006 Varicella 01/25/2010,08/04/1998 Family History Medical History Relation Name Comments Asthma Father obesity Diabetes Maternal Grandmother Rheumatoid Arthritis Mother obesity , migraines thyroid disease [Other] Sister 2 Relation Name Status Comments Father Maternal Grandmother Mother Sister 1 Sister 2 Social History Tobacco Use Types Packs/Day Years Used Date Smoking Tobacco: Former Smokeless Tobacco: Never Comments:quit 2014 Alcohol Use Standard Drinks/Week Comments Not Asked 0 (1 standard drink = 0.6 oz pur e alcohol) Sex Assigned at Date Recorded Not on file Last Filed Vital Signs Vital Sign Reading Time Taken Comments Blood Pressure 100/60 11/13/2017 1:00 PM EDT Pulse 72 11/13/2017 1:00 PM EDT Temperature 36.4 ??C (97.6 ??F) 11/13/2017 1 :00 PM EDT Respiratory Rate 16 11/13/2017 1:00 PM EDT Oxygen Saturation 99% 01/25/2015 2:1 4 PM EDT on r/a at rest Inhaled Oxygen Concentration - - Weight 93.4 kg (206 lb) 11/13/2017 1:00 PM EDT Height 154.9 cm (5' 1 ) 11/13/2017 1:00 PM EDT Body Mass Index 38.92 11/13/2017 1:00 PM EDT Plan of Treatment Health Maintenance Due Date Last Done Comments Covid-19 Vaccine (#1) 06/05/1994 PNEUMOCOCCAL VACCINE FOR HIG H RISK PATIENTS (#1) 2012 CERVICAL CANCER SCREENING 2014 CHOLESTEROL SCREENING 12/02/2019 12/01/2014 BASELINE HEALTH EXAM 18-39 01/25/2021 01/26/2016 INFLUENZA (#1) 2023 03/07/2014, 12/05/2012, 02/11/2011, Additional history exists BMI CHECK/ADVISE 04/07/2024 11/18/2016, , 01/26/2016, Additional history exists DEPRESSION SCREENING/FOLLOWUP 04/07/2024, 07/18/2017, 01/26/2016, Additional history exists SOCIAL NEEDS SCREENING 04/07/2024 DTAP/TDAP/TD (8 - Td or Tdap) 11/14/2027, 01/23/2006, 08/04/1998, Additional history exists Care Teams Recreation Therapy Teacher Relationship Specialty Start Date End Date Community, Pcp PCP - General Internal Medicine 04/13/19
--- OUTSIDE RECORDS SUMMARY | 2024-06-07 12:01 | XMS_ITS | Encounter Summary ---
Author Organization [facility] Address [address] [place] [address] Phone Care Team Providers Care Director Of Housing Name Role Phone Ari Latham MD Primary Care Provider [phone] Encounter Details Date Type Department Care Team (Late st Contact Info) Description 05/22/2010 Documentation [facility] Family Medicine [address] [place] [address] Family Medicine, Physician [address] [id number] Social History Tobacco Use Types Packs/Day Years Used Date Smoking Tobacco: Never Assessed Comments Unknown Sex and Gender Information Value Date Recorded Sex Assigned at Not on file Legal Sex Female 4:56 PM EDT Gender Identity Not on file Sexual Orientation Not on file documented as of this encounter Plan of Treatment Not on file documented as of this encounter Visit Diagnoses Not on filedocumented in this encounter Care Teams Director Of Housing Relationship Specialty Start Date End Date Ari Latham MD [address] [place] [address] PCP - General 11/15/16 07/07/22 documented as of this encounter
--- OUTSIDE RECORDS SUMMARY | 2024-06-07 12:01 | XMS_ITS | Clinical Summary ---
Author Organization [facility] Address [address] [place] [address] Phone Care Team Providers Care Supervisor Sign Shop Name Role Phone Unavailable Primary Care Provider Unavailabl e Immunizations Immunization Administration Dates Next Due DTP 07/06/1995, 5,06/04/1994,03/06 DTaP 5 08/04/1998 HPV, Quadrivalent 08/06/2007,03/25/2007,01/24/20 07 Hep A, Adult 10/05/2014 Hep B, ped/adol 10/04/1994,03/06/1994,01/04/1994 Hib (PRP-T) 05/07/1995, 5,06/04/1994,03/06 IPV 08/04/1998, 5,06/04/1994,03/06 Influenza Split 02/11/2011 Influenza, injectable, quadrivalent 03/07/2014 Influenza, injectable, quadr ivalent, preservative free 03/08/2013 Influenza, injectable, trivalent 02/02/2009 Influenza, intranasal, trivalent 01/25/2010 MMR 02/04/1998,05/07/1995 Meningococcal Conj (Menactra) MCV4P 01/23/2007 Tdap 01/23/2006 Varicella 01/25/2010,08/04/1998 Family History Relation Name Status Comments Daughter Alive Daughter: Alive and well Father Alive Father: Asthma and obesity Maternal Grandmother Materna l grandmother: Diabetes mellitus Mother Mother: Rheumat oid Arthritis and obesity, Migraines Other Family history of Obesity, Family history of Hyperlipidemia Sister Alive Sister: Thyroid disease and obesity Social History Tobacco Use Types Packs/Day Years Used Date Smoking Tobacco: Light Smoker Comments:Light tobacco smoke r Comments Unknown Sex and Gender Information Value Date Recorded Sex Assigned at Not on file Legal Sex Female 4:56 PM EDT Gender Identity Not on file Sexual Orientation Not on file Last Filed Vital Signs Vital Sign Reading Time Taken Comments Blood Pressure 122/86 10/05/2014 12:00 AM EDT Pulse 97 10/05/2014 12:00 AM EDT Temperature 36.7 ??C (98.1 ??F) 08/10/2014 12:00 AM E DT Respiratory Rate - - Oxygen Saturation - - Inhaled Oxygen Concentration - - Weight 96.4 kg (212 lb 9.6 oz) 10/05/2014 12:00 AM EDT Height 149.9 cm (4' 11 ) 10/05/2014 12:00 AM EDT Body Mass Index 42.94 10/05/2014 12:00 AM EDT Plan of Treatment Health Maintenance Due Date Last Done Comments DTaP,Tdap,and Td Vaccines (7 - Td or Tdap) 01/24/2016 01/23/2006, 08/04/1998, 07/06/1995, Additional history exists Influenza Vaccines (#1) 2023 03/07/20 14, 03/08/2013, 02/11/2011, Additional history exists COVID-19 Vaccine ( season) 2023 Hepatitis B Vaccines Completed 10/04/1994, 03/06/1994, 01/04/1994 HIB Vaccines Completed 05/07/1995, 07/08, 06/04/1994, Additional history exists MMR Vaccines Completed 02/04/1998, 05/07/1995 IPV Vaccines Completed 08/04/1998, 07/08, 06/04/1994, Additional history exists Meningococcal Vaccine Aged Out 01/23/2007 No patsy syed eligible based on patient's age to complete this topic HPV Vaccines Completed 08/06/2007, 03/07, 01/23/2007 Varicella Vaccines Completed 01/25/2010, 08/04/1998 Hepatitis A Vaccines Aged Out 10/05/2014 No long er eligible based on patient's age to complete this topic Men B Vaccine Aged Out No longer elig ible based on patient's age to complete this topic Pneumococcal Vaccine Aged Out No long er eligible based on patient's age to complete this topic Procedures * Due to [place] state law, this organization might not be sharing sensitive test results. Procedure Name Priority Date/Time Associated Diagnosis Comments CHLAMYDIA AND GONORRHEA, AMPLIFIED Routine 10/06/2014 2:30 PM EDT from Last 3 Months or Most Recently Relevant to Health Maintenance Results * Due to [place] state law, this organization might not be sharing sensitive test results. * Chlamydia and Gonorrhoea, Amplified (10/06/2014 2:30 PM EDT) URINE CHLAMYDIA AMP PROBE NEGATIVE [facility] Comment: No Chlamydia Trachomatis RNA detected in this patient's sample (REFERENCE RANGE/NORMAL VALUE: NOT DETECTED) URINE GC AMP PROBE NEGATIVE [facility] Comment: No Neisseria Gonorrhoeae RNA detected in this patient's sample (REFERENCE RANGE/NORMAL VALUE: NOT DETECTED) NOTE: This test uses allergy and immunology chief-mediated amplification method to detect rRNA from C.Trachomatis and N.Gonorrhoeae. A negative result does not preclude infection. In the case of a negative urine result, testing of an endocervical(female) or urethral(male) specimen is recommended if there is high clinical suspicion of infection. The performance characteristics of this test have not been evaluated in children. The Aptima Combo2 assay is not intended for the evaluation of suspected sexual abuse or for other medico-legal indications. The ordering provider should assess if the patient had consensual sex without risk of sexual abuse. Consult the [facility] if needed. Contact phone number . Therapeutic failure or success cannot be determined with the Aptima Combo2 assay since nucleic acid may persist following appropriate antimicrobial therapy. The Centers for Disease Control and Prevention (CDC) recommends confirmatory retesting using culture or a different nucleic acid amplification test when positive results occur, if indicated. Testing performed or reported by [facility], a Service of [facility], [address] [place] [address] eSan Castro MD, PhD, Tow Motor Operator 10/06/2014 2:30 PM EDT Narrative [facility] - 10/06/2014 2:30 PM EDT URINE CHLAMYDIA GC AMP PROBE us Bhumi Riojas NP LAB MICROBIOLOGY - GENERAL OR DERABLES Final Result [facility] [address] [place] [address], [place] from Last 3 Months or Most Recently Relevant to Health Maintenance
--- OUTSIDE RECORDS SUMMARY | 2024-06-07 12:01 | XMS_ITS | Encounter Summary ---
Author Organization [facility] Address [address] [place] [address] Phone Care Team Providers Care International Flight Attendant Name Role Phone Ari Latham MD Primary Care Provider [phone] Encounter Details Date Type Department Care Team (Late st Contact Info) Description 11/27/[address] [facility] Family Medicine [address] [place] [address] Family Medicine, Physician [address] [place], [place] [phone] Social History Tobacco Use Types Packs/Day Years [...] on filedocumented in this encounter Care Teams International Flight Attendant Relationship Specialty Start Date End Date Ari Latham MD [address] [place] [address] PCP - General 11/15/16 07/07/22 documented as of this encounter
--- OUTSIDE RECORDS SUMMARY | 2024-06-07 12:01 | XMS_ITS | Encounter Summary ---
Author Organization [facility] Address [address] [place] [address] Phone Care Team Providers Care Microbiology Laboratory Manager Name Role Phone Ari Latham MD Primary Care Provider [phone] Encounter Details Date Type Department Care Team (Late st Contact Info) Description 04/24/2012 Documentation [facility] Family Medicine [address] [place] [address] Family Medicine, Physician [address], [place] [phone] Social History Tobacco Use Types Packs/Day Years [...] on filedocumented in this encounter Care Teams Microbiology Laboratory Manager Relationship Specialty Start Date End Date Ari Latham MD [address] [place] [address] PCP - General 11/15/16 07/07/22 documented as of this encounter
--- OUTSIDE RECORDS SUMMARY | 2024-06-07 12:01 | XMS_ITS | Encounter Summary ---
Author Organization [employer] [facility] Address [address] [place] [address] Care Team Providers Care Retail Visual Merchandiser Name Role Phone [facility] Primary Care Provider [phone] Paul Yu Unavailable Unavailable Reason for Visit * Reason Onset Date Comments pt1 06/26/2022 PT1 07/09/2022 Encounter Details Date Type Department Care Team (Late st Contact Info) Description 06/26/2022 Telephone [facility] [address] [place] [address] Dougherty [facility] [address] [place], [place] [phone] pt1; PT1 Social History Tobacco Use Types Packs/Day Years Used Date Smoking Tobacco: Never Smokeless Tobacco: Never Alcohol Use Standard Drinks/Week Comments Never 0 (1 standard drink = 0.6 oz pur e alcohol) Comments No Sex and Gender Information Value Date Recorded Sex Assigned at Female 02/04/2022 10:32 AM EDT Legal Sex Female 10:32 AM EDT Gender Identity Female 02/04/2022 10:32 AM EDT Sexual Orientation Straight 02/04/2022 10 :32 AM EDT COVID-19 Exposure Response Date Recorded In the last 10 days, have yo u been in contact with someone who was confirmed or suspected to have Coronavirus/COVID-19? No / Unsure 05/28/2022 11:56 AM EST documented as of this encounter Miscellaneous Notes * Telephone Encounter - Pau Griffiths - 08/01/2022 8:03 AM EDT 243 not [phone] * Telephone Encounter - Pua Griffiths - 08/01/2022 8:02 AM EDT Patient will recieve approval / denial letter via mail. PT-1 Request [id number] Pending. [facility] * Telephone Encounter - Ade Corrales - 07/09/2022 8:51 AM EDT Tc from patient re calling in regards to message below. Patient has a surgery on 07/15/22. * Telephone Encounter - Adam Ramos - 06/26/2022 9:25 AM EDT Tc from pt requesting to renew pt1 Location:[address] [place] [address] Specialty: surgery Time: 6 am Date: July 15 2022 Rate Quoting Operator: yes wheelchair accessible : no Location::[address] [place] [address] Specialty: post op Time: na Date:na Rate Quoting Operator: yes wheelchair accessible :na documented in this encounter Plan of Treatment Upcoming Encounters Date Type Department Care Team (Late st Contact Info) Description 06/25/2024 9:00 AM EDT Office Visit [facility] [address] [place] [address] Sofy Cardenas FNP [address] [place] [address] documented as of this encounter Visit Diagnoses Not on filedocumented in this encounter Additional Health Concerns Assessment Noted Time PHQ-9 Depression Total Score: 3 05/23/19 23 11:16 AM EST documented as of this encounter Care Teams Retail Visual Merchandiser Relationship Specialty Start Date End Date Sofy Cardenas FNP [address] [place] [address] PCP - General Family Medicine 11/30/21 Paul Yu FNP [address] [place] [id number] Nurse Practitioner Family Medicine 02/26/23 documented as of this encounter
--- OUTSIDE RECORDS SUMMARY | 2024-06-07 12:01 | XMS_ITS | Encounter Summary ---
Author Organization [employer] Address [address] [place] [address] Care Team Providers Care Data Technical Lead Name Role Phone [facility] Primary Care Provider [phone] Paul Yu DIRECTOR HAIR Unavailable Unavailable Reason for Visit * Reason Onset Date Comments Results 06/07/2022 Encounter Details Date Type Department Care Team ([facility] st Contact Info) Description 06/07/2022 Telephone [facility] [address] [place] [address] [facility] [address] [place] [address] Results Social History Tobacco Use Types Packs/Day Years [...] encounter Miscellaneous Notes * Telephone Encounter - Lori Mujica RN - 06/12/2022 8:39 AM EST Call to pt. Discussed results. Advised ortho would be reaching out. 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 Pt verbalized understanding * Telephone Encounter - Tyson Bellamy Boyle - 06/07/2022 2:29 PM EST Tc from pt requesting a status on ENG that was done on 05/29/2022. Please contact pt with results at [phone] documented in this encounter Plan of Treatment Upcoming Encounters Date Type Department Care Team (Late st Contact Info) Description 06/25/2024 9:00 AM EDT Office Visit [facility] [address] [place] [address] [facility] [address] [place] [address] documented as of this encounter Visit Diagnoses Not on filedocumented in this encounter Additional Health Concerns Assessment Noted Time PHQ-9 Depression Total Score: 3 05/23/19 23 11:16 AM EST documented as of this encounter Care Teams Data Technical Lead Relationship Specialty Start Date End Date Sofy Cardenas FNP [address] [place] [address] PCP - General Family Medicine 11/30/21 Paul Yu FNP [address] [place] [address] Nurse Practitioner Family Medicine 02/26/23 documented as of this encounter
--- OUTSIDE RECORDS SUMMARY | 2024-06-07 12:01 | XMS_ITS | Encounter Summary ---
Author Organization [facility] Address [address] [place] [address] Phone Care Team Providers Care Medical Program Specialist Name Role Phone Ari Latham MD Primary Care Provider [phone] Encounter Details Date Type Department Care Team (Late st Contact Info) Description 06/11/2012 Documentation [facility] [place] [address] [place] [address] Family Medicine, Physician [address], [place] [id number] Social History Tobacco Use Types Packs/Day Years [...] on filedocumented in this encounter Care Teams Medical Program Specialist Relationship Specialty Start Date End Date Ari Latham MD [address] [place] [phone] PCP - General 11/15/16 07/07/22 documented as of this encounter
--- OUTSIDE RECORDS SUMMARY | 2024-06-07 12:01 | XMS_ITS | Encounter Summary ---
Author Organization [facility] Address [address] [place] [address] Phone Care Team Providers Care Successfactors Consultant Name Role Phone Ari Latham MD Primary Care Provider [phone] Encounter Details Date Type Department Care Team (Late st Contact Info) Description 03/09/2010 Documentation [facility] [place] Family Medicine [address] [place] [address] Family Medicine, Physician [address], [place] [id number] Social History Tobacco Use Types Packs/Day Years [...] on filedocumented in this encounter Care Teams Successfactors Consultant Relationship Specialty Start Date End Date Ari Latham MD [address] [place] [address] PCP - General 11/15/16 07/07/22 documented as of this encounter
--- OUTSIDE RECORDS SUMMARY | 2024-06-07 12:01 | XMS_ITS | Encounter Summary ---
Author Organization [facility] Address [address] [place] [address] Care Team Providers Care Sales And Marketing Representative Name Role Phone Kristy Brunson DO Primary Care Pro vider Unavailable Community, Pcp Primary Care Provider Unavailabl e Encounter Details Date Type Department Care Team Description 08/24/2017 Night Triage Doc Medical Records [address] [place] [address] Abstract, Provider Social History Tobacco Use Types Packs/Day Years Used Date Smoking Tobacco: Former Comments:quit 2014 Alcohol Use Standard Drinks/Week Comments Not Asked 0 (1 standard drink = 0.6 oz pur e alcohol) Sex Assigned at Date Recorded Not on file documented as of this encounter Plan of Treatment Not on file documented as of this encounter Visit Diagnoses Not on filedocumented in this encounter Care Teams Sales And Marketing Representative Relationship Specialty Start Date End Date Kristy Brunson DO PCP - General Internal Medicine 12/01/14 04/12/19 Community, Pcp PCP - General Internal Medicine 04/13/19 documented as of this encounter
--- OUTSIDE RECORDS SUMMARY | 2024-06-07 12:01 | XMS_ITS | Encounter Summary ---
Author Organization [facility] Address [address] [place] [address] Phone Care Team Providers Care Oracle Ebs Consultant Name Role Phone Ari Latham MD Primary Care Provider [phone] Encounter Details Date Type Department Care Team (Late st Contact Info) Description 06/15/2011 Documentation [facility] [place] Family Medicine [address] [place] [address] Family Medicine, Physician [address], [place] [phone] Social History Tobacco Use Types Packs/Day Years [...] on filedocumented in this encounter Care Teams Oracle Ebs Consultant Relationship Specialty Start Date End Date Ari Latham MD [address] [place] [address] PCP - General 11/15/16 07/07/22 documented as of this encounter
--- OUTSIDE RECORDS SUMMARY | 2024-06-07 12:01 | XMS_ITS | Encounter Summary ---
Author Organization [facility] Address [address] [place] [address] Phone Care Team Providers Care Director Of Outpatient Services Name Role Phone Ari Latham MD Primary Care Provider [phone] Encounter Details Date Type Department Care Team (Late st Contact Info) Description 09/11/2010 Documentation [facility] [place] Family Medicine [address] [place] [address] Family Medicine, Physician [address] [place] [phone] Social History Tobacco Use Types Packs/Day Years [...] in this encounter Care Teams Director Of Outpatient Services Relationship Specialty Start Date End Date Ari Latham MD [address] [place] [address] PCP - General 11/15/16 07/07/22 documented as of this encounter
--- OUTSIDE RECORDS SUMMARY | 2024-06-07 12:01 | XMS_ITS | Encounter Summary ---
Author Organization [employer] Address [address] [facility] 7 [place] [address] Care Team Providers Care Field Mechanic/Site Lead Name Role Phone Sofy Cardenas EFFERVESCENT SALTS COMPOUNDER Primary Care Provider [phone] Paul Yu Unavailable Unavailable Encounter Details Date Type Department Care Team (Late st Contact Info) Description 09/16/2023 Orders Only [facility] CH[facility] MED & PEDS [address] [place] [address] Lanny Lamb FNP [address] [place] [address] Social History Tobacco Use Types Packs/Day Years Used Date Smoking Tobacco: Never Passive Smoke Exposure: Never Smokeless Tobacco: Never Alcohol Use Standard Drinks/Week Comments Never 0 (1 standard drink = 0.6 oz pur e alcohol) Depression Answer Date Recorded Patient Health Questionnaire-9 Score 2 07/07/2023 Patient Health Questionnaire-9 Score 2 07/07/2023 Last PHQ-9: Questionnaire Data Not on file 0 07/07/2023 Housing Stability Answer Date Recorded What is your housing situation today? I have joleen crawley 01/29/[address] you li ve. Do you have problems with any of the following? None of the above 01/29/2023 Food Insecurity Answer Date Recorded Within the past 12 months, y ou worried that your food would run out before you got money to buy more: Never True 01/29/2023 Within the past 12 months,th e food you bought just didn't last and you didn't have enough money to get more: Never True Transportation Answer Date Recorded In the past 12 months, has l ack of transportation kept you from medical appts, meetings, work or from getting things needed for daily living? No 01/29/2023 Utilities Answer Date Recorded In the past 12 months, has t he electric, gas, oil or water company threatened to shut off services in your home? No 01/29/2023 Depression Answer Date Recorded Patient Health Questionnaire-2 Score 2 07/07/2023 Comments Unknown Sex and Gender Information Value Date Recorded Sex Assigned at Female 02/04/2022 10:32 AM EDT Legal Sex Female 10:32 AM EDT Gender Identity Female 02/04/2022 10:32 AM EDT Sexual Orientation Straight 02/04/2022 10 :32 AM EDT documented as of this encounter Plan of Treatment Upcoming Encounters Date Type Department Care Team (Late st Contact Info) Description 06/25/2024 9:00 AM EDT Office Visit [facility] MEDICINE [address] [place] [address] [facility] [address] [place] [address] documented as of this encounter Procedures Procedure Name Priority Date/Time Associated Diagnosis Comments XR KNEE 1-2 VIEWS LEFT Routine 10/01/2023 2:15 AM EDT documented in this encounter Results * XR Knee 1-2 Views Left (10/01/2023 2:15 AM EDT) Anatomical Region Laterality Modality Lower Extremities, Knee Left [facility] 10/01/2023 2:15 AM EDT Narrative 10/01/2023 3:26 AM EDT ? [facility] ?[address] ?[place] [address] ?XRay Report ? Signed ? Patient: Avery,Fabiola ?MR#: [id number] ?? [id number] ? : 1995 ?Acct:[id number] ? Age/Sex: 27 / F ?ADM Date: 06/26/24 ? Loc: HO.ED ? Attending Dr: ? Ordering Physician: Ernestine Lassiter MD ?? Date of Service: 10/01/23 ?? Procedure(s): XR knee LT 2V ?? Accession Number(s): [id number] ? cc: Ernestine aLssiter MD; Sofy Cardenas EFFERVESCENT SALTS COMPOUNDER ? EXAMINATION: ?? XR KNEE, LEFT ? CLINICAL INFORMATION: ?? Fall/pain. ? COMPARISON: ?? None available. ? TECHNIQUE: ?? AP and lateral views of the left knee. ? FINDINGS: ?? No fracture or malalignment. Small medial compartment osteophytes. ?? Trace joint effusion. Joint spaces well-preserved. No osseous lesions. ?? Soft tissues are unremarkable. ? XR/XR knee LT 2V ?? IMPRESSION: ?? 1. ??No acute fracture or malalignment. ?? 2. ??Trace joint effusion. ? Dictated By: ?Shoaib Moise MD ? Signed By: ?<Electronically signed by Shoaib Moise MD in OV> ? 10/01/23 0322 ? DD/ 0215 ? TD/TT: ? Adjunct Instructor Chemistry: RK ? Procedure Note Valeriy, Priscilla - 10/01/[address] [address] XRay Report Signed Patient: Fabiola VarelaMR#: [id number] : 1995Acct:[id number] Age/Sex: 27 / FADM Date: 10/01/23 Loc: HO.ED Attending Dr: Ordering Physician: Ernestine Lassiter MD Date of Service: 10/01/23 Procedure(s): XR knee LT 2V Accession Number(s): [id number] cc: Ernestine Lassiter MD; [facility] EXAMINATION: XR KNEE, LEFT CLINICAL INFORMATION: Fall/pain. COMPARISON: None available. TECHNIQUE: AP and lateral views of the left knee. FINDINGS: No fracture or malalignment. Small medial compartment osteophytes. Trace joint effusion. Joint spaces well-preserved. No osseous lesions. Soft tissues are unremarkable. XR/XR knee LT 2V IMPRESSION: 1. No acute fracture or malalignment. 2. Trace joint effusion. Dictated By: Shoaib Moise MD Signed By: <Electronically signed by Shoaib Moise MD in OV> 10/01/23 0322 DD/ 0215 TD/TT: Adjunct Instructor Chemistry: CARRIE [facility] External Provider IMG XR PROCEDURES Edited Result - Final documented in this encounter Visit Diagnoses Not on filedocumented in this encounter Additional Health Concerns Assessment Noted Time PHQ-9 Depression Total Score: 2 07/07/19 24 10:19 AM EDT documented as of this encounter Care Teams Field Mechanic/Site Lead Relationship Specialty Start Date End Date Sofy Cardenas FNP [address] [place] [address] PCP - General Family Medicine 11/30/21 Paul Yu FNP [address] [place] [address] Nurse Practitioner Family Medicine 02/26/23 documented as of this encounter
--- OUTSIDE RECORDS SUMMARY | 2024-06-07 12:01 | XMS_ITS | Encounter Summary ---
Author Organization [facility] Address [address] [place] [address] Phone Care Team Providers Care Certified Nursing Assistant Instructor Name Role Phone Ari Latham MD Primary Care Provider [phone] Encounter Details Date Type Department Care Team (Late st Contact Info) Description 03/20/2011 Documentation [facility] Family Medicine [address] [place] [address] Family Medicine, Physician [address] [phone] Social History Tobacco Use Types Packs/Day Years [...] on filedocumented in this encounter Care Teams Certified Nursing Assistant Instructor Relationship Specialty Start Date End Date Ari Latham MD [address] [place] [address] PCP - General 11/15/16 07/07/22 documented as of this encounter
--- OUTSIDE RECORDS SUMMARY | 2024-06-07 12:01 | XMS_ITS | Encounter Summary ---
Author Organization [facility] Address [address] [place] [address] Care Team Providers Care Hand Mold Maker Name Role Phone Kristy Brunson DO Primary Care Pro vider Unavailable Community, Pcp Primary Care Provider Unavailabl e Encounter Details Date Type Department Care Team Description 08/29/2017 Night Triage Doc Medical Records [address] [place] [address] Abstract, Provider Social History Tobacco Use Types [...] on filedocumented in this encounter Care Teams Hand Mold Maker Relationship Specialty Start Date End Date Kristy Brunson DO PCP - General Internal Medicine 12/01/14 04/12/19 Community, Pcp PCP - General Internal Medicine 04/13/19 documented as of this encounter
--- OUTSIDE RECORDS SUMMARY | 2024-06-07 12:01 | XMS_ITS | Clinical Summary ---
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 fundal height not reliable, after 28 weeks * Induction only if indicated * PP lovenox according to guidelines Encounters Date Type Department Care Team Description 06/03/2024 Orders Only [facility] [address] [place] [phone] Sofy Cardenas FNP Rupture of anterior cruciate ligament of left knee, initial encounter (Primary Dx) 06/01/[address] [address] Sofy Cardenas FNP telephone call 05/26/2024 3:00 PM EST [facility] [address] [address] Laya Herring MD Irritant contact dermatitis due to other agents (Primary Dx) 05/07/2024 Travel 04/30/[address] [address] Sofy Cardenas FNP 04/21/2024 Orders Only [facility] [address] [facility] 04/14/2024 Orders Only GENERIC EXTERNAL DATA DEPARTMENT Provider, Generic External Data 03/23/[address] [address] Sofy Cardenas FNP Pre-op Notes 03/19/2024 1:30 PM EST Office Visit [address] [address] Sofy Cardenas FNP Rupture of anterior cruciate ligament of left knee, initial encounter (Primary Dx); Preoperative clearance; Nausea 03/19/2024 Travel from Last 3 Months Immunizations Name Administration Dates Next Due DTP 07/06/1995, 5,06/04/1994,03/06 DTaP 07/06/1995, 5,06/04/1994,03/06 DTaP / HiB / IPV 05/07/1995, 5,06/04/1994,03/06 DTaP, 5 pertussis antigens 08/04/1998 HPV, Quadrivalent 08/06/2007,03/25/2007,01/24/20 07 Hep A, Adult 05/17/2021,10/05/2014 Hep B, Adolescent or Pediatric 10/04/1994,1993,01/04/1994 Hib (PRP-T) 05/07/1995, 5,06/04/1994,03/06 IPV 08/04/1998, 5,06/04/1994,03/06 Influenza injectable quadriv alent IIV4 with preservative 03/07/2014 Influenza injectable quadriv alent preservative free 03/08/2013 Influenza, IIV3, injectable 01/24/2012, 9 Influenza, Split (incl. gustavo fied surface antigen) 02/11/2011 Influenza, live, intranasal 01/25/2010 MMR 02/04/1998,05/07/1995 Meningococcal MCV4P ACYW-135 09/22/2020,01/24/20 07 OPV 08/04/1998, 5,06/04/1994,03/06 Pfizer Covid-19 Vaccine 12+ Bivalent 11/19/2022 Pfizer Covid-19 Vaccine 12+ radha-sucrose (Stevens Cap) 11/21/2021 Pneumococcal Conjugate PCV 20 11/21/2021 Tdap 11/13/2017,02/20/2012,01/23/2006 Varicella 01/25/2010,08/04/1998 Social History Tobacco Use Types Packs/Day Years Used Date Smoking Tobacco: Never Passive Smoke Exposure: Never Smokeless Tobacco: Never Tobacco Cessation:Counseling Given: Not Answered Alcohol Use Standard Drinks/Week Comments Never 0 (1 standard drink = 0.6 oz pur e alcohol) Depression Answer Date Recorded Patient Health Questionnaire-9 Score 0 10/20/2023 Patient Health Questionnaire-9 Score 0 10/20/2023 Last PHQ-9: Questionnaire Data Not on file 0 10/20/2023 Housing Stability Answer Date Recorded What is your housing situation today? I have joleen crawley 03/19/[address] you li ve. Do you have problems with any of the following? None of the above 03/19/2024 Food Insecurity Answer Date Recorded Within the past 12 months, y ou worried that your food would run out before you got money to buy more: Never True 03/19/2024 Within the past 12 months,th e food you bought just didn't last and you didn't have enough money to get more: Never True Transportation Answer Date Recorded In the past 12 months, has l ack of transportation kept you from medical appts, meetings, work or from getting things needed for daily living? No 03/19/2024 Utilities Answer Date Recorded In the past 12 months, has t he electric, gas, oil or water company threatened to shut off services in your home? No 03/19/2024 Depression Answer Date Recorded Patient Health Questionnaire-2 Score 0 10/20/2023 Internet Access Answer Date Recorded Internet Access Q1 Yes 03/19/2024 Internet Access Q2 Not on file 03/19/2024 Comments Unknown Sex and Gender Information Value Date Recorded Sex Assigned at Female 02/04/2022 10:32 AM EDT Legal Sex Female 10:32 AM EDT Gender Identity Female 02/04/2022 10:32 AM EDT Sexual Orientation Straight 02/04/2022 10 :32 AM EDT Last Filed Vital Signs Vital Sign Reading Time Taken Comments Blood Pressure 135/84 05/26/2024 3:08 PM EST Pulse 89 05/26/2024 3:08 PM EST Temperature 36.8 ??C (98.2 ??F) 05/26/2024 3:08 PM ES T Respiratory Rate 18 05/26/2024 3:08 PM EST Oxygen Saturation 99% 05/26/2024 3:08 PM EST Inhaled Oxygen Concentration - - Weight 113 kg (250 lb) 05/26/2024 3:08 PM EST Height 152.4 cm (5') 03/19/2024 1:38 PM EST Body Mass Index 48.82 03/19/2024 1:38 PM EST Plan of Treatment Upcoming Encounters Date Type Department Care Team (Late st Contact Info) Description 06/25/2024 9:00 AM EDT Office Visit [facility] [address] [place] [address] [place], Sofy, [employer] [address] [place] [address] Health Maintenance Due Date Last Done Comments Lipid Panel 1993 Alcohol/Substance Use Screening 2005 Family Planning (PISQ) 2008 COVID-19 Vaccine ( season) 2023 11/19/2022, 11/21/2021, 08/17/2020, Additional history exists HPV/Cotest 12/07/2023 Influenza Vaccine (#1) 2023 4, 03/07/2014, 03/08/2013, Additional history exists Depression Screening 10/19/2024 10/20/2023, 10/20/19 24 SDOH Screening 03/19/2025 03/19/2024 Tobacco Screening 03/22/2025 03/22/2024 Cervical Cancer Screening 02/19/2026 Pap Smear 02/19/2026 02/19/2023 DTaP/Tdap/Td Vaccines (9 - Td or Tdap) 11/14/2027 11/13/2017, 02/20/2012, 01/23/2006, Additional history exists Zoster Vaccines (1 of 2) 12/07/2043 RSV Patients and Patients Aged 60 years or older (1 - 1-dose 75+ series) 2068 Hepatitis B Vaccines Completed 10/04/1994, 03/06/1994, 01/04/1994 HIB Vaccines Completed 05/07/1995, 04/09, 08/04/1994, Additional history exists IPV Vaccines Completed 08/04/1998, 07/08, 05/07/1995, Additional history exists HPV Vaccines Completed 08/06/2007, 03/07, 01/23/2007 Meningococcal Vaccine Aged Out 09/22/2020, 007 No longer eligible based on patient's age to complete this topic Hepatitis A Vaccines Completed 05/17/2021, 10/06/19 15 Pneumococcal Vaccine: Pediatrics (0 to 5 Years) and At-Risk Patients (6 to 49) Years) Completed 11/21/2021 Hepatitis C Screening Completed 06/28/2022, 022 HIV Screening Completed 04/18/2023, 06/06, 08/31/2021 RSV under 20 months Aged Out No longe r eligible based on patient's age to complete this topic Rotavirus Vaccines Aged Out No longer eligible based on patient's age to complete this topic Procedures Procedure Name Priority Date/Time Associated Diagnosis Comments ECG 12-LEAD Routine 04/21/2024 8:56 AM EST Preoperative clearance HCG, QL, URINE Routine 04/14/2024 8:25 AM EST BASIC METABOLIC PANEL Routine 03/19/2024 2:26 PM EST Preoperative clearance PROTHROMBIN TIME-INR Routine 03/19/2024 2:24 PM EST Preoperative clearance CBC WITH AUTO DIFFERENTIAL Routine 03/19/2024 2:24 PM EST Preoperative clearance HIV 1/2 ANTIGEN/ANTIBODY, FOURTH GENERATION W/RFL Routine 04/18/2023 12:05 PM EST Hemoptysis PAP SMEAR Routine 02/19/2023 10:40 AM EST HEPATITIS C ANTIBODY Routine 06/28/2022 2:05 PM EDT Acute carpal tunnel syndrome, unspecified laterality from Last 3 Months or Most Recently Relevant to Health Maintenance Results * ECG 12 lead (04/21/2024 8:56 AM EST) Narrative [place] - 04/21/2024 8:56 AM EST NSR [facility] ECG ORDERABLES Final Result * HCG, Qualitative, Urine (04/14/2024 8:25 AM EST) Urine NEGATIVE NEGATIVE [facility] Comment:This test was develo ped to detect early . Falsenegative results may occur after the 5th - 7th week ofpregnancy when using this test method. If clinicallyindicated, consider a serum hCG. 04/14/2024 8:25 AM EST 04/14/2024 8:30 AM EST Generic External Data Provider LAB URINE ORDERAB LES Final Result Performing Organization Address [facility] Co de Phone Number [facility] [address] [place] [phone] * (ABNORMAL) Basic Metabolic Panel (03/19/2024 2:26 PM EST) Sodium 138 135 - 145 mmol/L [facility] Potassium 4.2 3.3 - 5.1 mmol/L [facility] Chloride 105 96 - 108 mmol/L [facility] Carbon Dioxide 28 22 - 29 mmol/L [facility] Anion Gap 9(L) 12 - 20 [facility] Urea Nitrogen (BUN) 12 9 - 16 mg/dL [facility] Creatinine, Serum 1.00 0.5 - 1.4 mg/dL [facility] Estimated Glomerular Filt Rate >60 [facility] Comment:Chronic Kidney Disea se: Estimated GFR < 60 mL/min/[id number] Kidney Disease: Estimated GFR < 15 mL/min/1.73m2 Glucose 81 60 - 115 mg/dL [facility] Calcium 9.9 8.4 - 10.2 mg/dL [facility] Blood Venous blood specimen / Unknown 03/19/2024 2:26 PM EST 03/19/2024 3:56 PM EST [facility] [employer]PERATOR LAB BLOOD ORDERABLES Final Re sult Performing Organization Address [facility] Co de Phone Number [facility] [address] [place] [phone] * (ABNORMAL) CBC auto differential (03/19/2024 2:24 PM EST) White Blood Count 9.5 4.8 - 10.8 X10*3/uL [facility] Red Blood Count 4.42 4.20 - 5.50 X10*6/uL [facility] Hemoglobin 14.2 12.0 - 16.0 g/dl [facility] Hematocrit 38.9 37.0 - 47.0 % [facility] Mean Corpuscular Volume 88.0 80.0 - 98.0 fL [facility] Mean Corpuscular Hemoglobin 32.1 27.0 - 33.0 pg [facility] Mean Corpuscular HGB Conc 36.5(H) 31.0 - 35.0 g/dl [facility] Red Cell Distribution Width 11.9 11.0 - 16.0 % [facility] Platelet Count 299 160 - 400 X10*3/uL [facility] Mean Platelet Volume 8.8(L) 9.4 - 12.3 fL [facility] Neutrophils Percent Auto 70.8 45 - 73 % [facility] Imm Gran Pct Auto 0.3 0.0 - 0.4 % [facility] Lymphocytes Percent Auto 21.0 20 - 40 % [facility] Monocytes Percent Auto 5.8 2 - 11 % [facility] Eosinophils Percent Auto 1.6 0 - 4 % [facility] Basophils Percent Auto 0.5 0 - 2 % [facility] NRBC Pct Auto 0.0 0.0 - 0.2 /100WBC [facility] Neutrophils Absolute Auto 6.7 2.0 - 8.3 x10*3/uL [facility] Imm Gran Abs Auto 0.03 0.00 - 0.03 X10*3/uL [facility] Lymphocytes Absolute Auto 2.0 1.2 - 4.9 X10*3/uL [facility] Monocytes Absolute Auto 0.6 0.1 - 1.2 X10*3/uL [facility] Eosinophils Absolute Auto 0.2 0.0 - 0.4 X10*3/uL [facility] Basophils Absolute Auto 0.1 0.0 - 0.2 X10*3/uL [facility] NRBC Abs Auto 0.000 0.0 - 0.012 X10*3/uL [facility] Blood Venous blood specimen / Unknown 03/19/2024 2:24 PM EST 03/19/2024 4:01 PM EST [facility] LAB BLOOD ORDERABLES Final Re sult Performing Organization Address [facility] Co de Phone Number [facility] [address] [place] [phone] * Prothrombin Time-INR (03/19/2024 2:24 PM EST) Prothrombin Time 11.6 10.9 - 12.4 SEC [facility] INTERNATIONAL NORM RATIO 1.0 0.9 - 1.1 [facility] Comment:INTERNATIONAL NORMAL IZED RATIO (INR) REFERENCE RANGES Reference RangeFor patients not on anticoagulant therapy: 0.9 - 1.1INR ranges for oral anticoagulanttherapy:For prevention and treatment of venous thrombosis and pulmonary embolism: 2.0 - 3.0For acute myocardial infarction with aspirin therapy: 2.0 - 3.0For acute myocardial infarction without aspirin therapy: 3.0 - 4.0For patients with mechanical prosthetic heart valves: 2.5 - 3.5 Blood Venous blood specimen / Unknown 03/19/2024 2:24 PM EST 03/19/2024 4:01 PM EST [facility] LAB BLOOD ORDERABLES Final Re sult Performing Organization Address [facility] Co de Phone Number [facility] [address] [place] [phone] * HIV-1/2 Antigen and Antibodies, Fourth Generation, with Reflexes (04/18/2023 12:05 PM EST) HIV AB/AG Nonreactive Nonreactive [facility] Comment:HIV-1 p24 Ag and/or HIV-1/HIV-2 Ab not detected.A test result that is nonreactive does not exclude thepossibility of exposure to or infection with HIV-1 and/orHIV-2. Nonreactive results in this assay for individualswith prior exposure to HIV-1 and/or HIV-2 may be due toantigen and antibody levels that are below the limit ofdetection of this assay.The [employer] Alinity HIV Ag/Ab Combo assay result andsupplemental assay results should be interpreted inconjunction with the patient's clinical presentation,history and other laboratory results. If the results areinconsistent with clinical evidence, additional testing issuggested to confirm the result. Blood Venous blood specimen / Unknown 04/18/2023 12:05 PM EST 04/18/2023 1:04 PM EST us Laya Bundy MD LAB BLOOD ORDERABLES Final Result Performing Organization Address [facility] Co de Phone Number [facility] [address] [place] [phone] * Pap Smear (02/19/2023 10:40 AM EST) 02/19/2023 10:4 0 AM EST 02/20/2023 10:45 AM EST Narrative [facility] - 03/11/2023 7:55 AM EST ----- ------- Name: Fabiola Varela ? Age/Sex: 27/F ? : 1995 Unit#: [id number] ?? Attend Dr: Sofy Cardenas ?Re02/19/23 ?Status: DEP REF ? Location: [facility] ? Disch: ? ----- ------- SPEC : [id number] ?RECD: 02/20/23 ? STATUS: ??SOUT ? REQ NUM: [id number] ? SERGO: 02/19/23 ? SUBM DR: Sofy Cardenas ? ENTERED: ??02/21/23 ?SP TYPE: Pap Smr ?OTHR DR: ? ORDERED: ??Pap Smear ? Interpretation ?? Satisfactory for evaluation. ?? No endocervical cells seen. ?? Blood. ?? Mild inflammation. ?? Negative for intraepithelial lesion or malignancy. ?Clinical Information LMP: Unknown date Previous PAP test: Unknown date/findings ? Material Received ?? ThinPrep-Cervical ----- ------- Signed (signature on file) J CARLOS Pena ([facility]) 03/11/23 0755 ? ----- ------- ? END OF REPORT ? [facility] [employer] LAB CYTOLOGY ORDERABLES Final Result Performing Organization Address [facility] Co de Phone Number [facility] [address] [place] [phone] * Hepatitis C Ab (06/28/2022 2:05 PM EDT) [facility] Hepatitis C Antibody Nonreactive Nonreactive [facility] Comment:Antibodies to HCV no t detected; does not exclude early acuteHCV infection. 06/28/2022 2:05 PM EDT 06/28/2022 2:05 PM EDT [facility] External Provider LAB BLO OD ORDERABLES Final Result Performing Organization Address [facility] Co de Phone Number [facility] [address] [place] [phone] from Last 3 Months or Most Recently Relevant to Health Maintenance Insurance [place] [employer] Care Teams Stock Replenisher Relationship Specialty Start Date End Date Sofy Cardenas FNP [address] [place] [phone] PCP - General Family Medicine 11/30/21 Paul Yu FNP [address] [place] [phone] Nurse Practitioner Family Medicine 02/26/23
--- OUTSIDE RECORDS SUMMARY | 2024-06-07 12:02 | XMS_ITS | Encounter Summary ---
Author Organization [facility] Address [address] [place] [address] Phone Care Team Providers Care Customer Response Representative Name Role Phone Ari Latham MD Primary Care Provider [phone] Encounter Details Date Type Department Care Team (Late st Contact Info) Description 09/05/[address] [facility] Family Medicine [address] [place] [address] Family Medicine, Physician [address] [place], [place] [phone] Social History Tobacco Use Types Packs/Day Years [...] on filedocumented in this encounter Care Teams Customer Response Representative Relationship Specialty Start Date End Date Ari Latham MD [address] [place] [phone] PCP - General 11/15/16 07/07/22 documented as of this encounter
--- OUTSIDE RECORDS SUMMARY | 2024-06-07 12:02 | XMS_ITS | Encounter Summary ---
Author Organization [facility] Address [address] [place] [address] Care Team Providers Care Flooring Mechanic Name Role Phone Ronald Medford Primary Care Provider [phone] Reason for Visit * Reason Onset Date Comments schedule an appt 08/29/2021 Encounter Details Date Type Department Care Team (Late st Contact Info) Description 08/29/2021 Telephone [facility] Central Scheduling Department [address] [place] [phone] Telephone Intake, Staff schedule an appt Social History Tobacco Use Types Packs/Day Years Used Date Smoking Tobacco: Never Assessed Comments Unknown Sex and Gender Information Value Date Recorded Sex Assigned at Female 10/26/2021 8:32 AM EDT Legal Sex Female 1:57 PM EDT Gender Identity Female 10/26/2021 8:32 AM EDT Sexual Orientation Straight 10/26/2021 8: 32 AM EDT documented as of this encounter Miscellaneous Notes * Telephone Encounter - Mica Handy - 08/29/2021 1:42 PM EDT PT mom is calling to schedule an appt for Fabiola There is a rfrl in epic No dates are avaible for in person or TH Pleas give PT a call back at [phone] Fabiola is hearing impaired she uses a caption reader to know what you are saying so it may take a little longer for her to be able to respond back Just so the call does not get lost because of the pause in between documented in this encounter Plan of Treatment Not on file documented as of this encounter Visit Diagnoses Not on filedocumented in this encounter Care Teams Flooring Mechanic Relationship Specialty Start Date End Date Ronald Sofy [address] [place] [phone] PCP - General 08/12/22 documented as of this encounter
--- OUTSIDE RECORDS SUMMARY | 2024-06-07 12:02 | XMS_ITS | Encounter Summary ---
Author Organization [facility] Address [address] [place] [address] Care Team Providers Care Director Of Contracts Name Role Phone Unavailable Primary Care Provider Unavailabl e Encounter Details Date Type Department Care Team (Latest Contact Info) Description 06/03/2024 2:00 PM EST Behavioral Health Visit [facility] [address] [place] [phone] Chanell Farrell APRN [address] [place] [address] Anxiety; Episodic mood disorder (HCC-CMS); Attention deficit hyperactivity disorder (ADHD), unspecified ADHD type Social History Tobacco Use Types Packs/Day Years Used Date Smoking Tobacco: Former Cigarettes Q uit: 2019 Smokeless Tobacco: Never Alcohol Use Standard Drinks/Week Comments Not Asked 0 (1 standard drink = 0.6 oz pur e alcohol) rarely Social Connections Answer Date Recorded Connectedness 0 12/20/2023 Financial Resource Strain Answer Date R ecorded Financial Resource Strain 0 2023 Stress Answer Date Recorded Stress 0 11/13/2023 Physical Activity Answer Date Recorded Physical Activity 0 11/13/2023 Food Insecurity Answer Date Recorded Food 0 01/01/2024 Transportation Needs Answer Date Record ed Transportation 0 11/13/2023 Housing Stability Answer Date Recorded Housing 0 11/13/2023 Safety and Environment Answer Date Ricardo rded Safety 0 11/13/2023 Utilities Answer Date Recorded Utilities 0 11/13/2023 Employment Answer Date Recorded Stress 0 12/20/2023 Comments Unknown Sex and Gender Information Value Date Recorded Sex Assigned at Not on file Legal Sex Female 4:48 AM PDT Gender Identity Not on file Sexual Orientation Not on file documented as of this encounter Plan of Treatment Upcoming Encounters Date Type Department Care Team ([facility] st Contact Info) Description 08/26/2024 1:00 PM EDT Behavioral Health Visit [facility] [address] [place] [phone] Chanell Farrell APRN [address] [facility] [place] [address] documented as of this encounter Visit Diagnoses Diagnosis Anxiety Anxiety state, unspecified Episodic mood disorder (HCC-CMS) Unspecified episodic mood disorder Attention deficit hyperactivity disorder (ADHD), unspecified ADHD type documented in this encounter
--- OUTSIDE RECORDS SUMMARY | 2024-06-07 12:02 | XMS_ITS | Encounter Summary ---
Author Organization [facility] Address [address] [place] [phone] Phone Care Team Providers Care Senior Genetic Counselor Name Role Phone Ari Latham MD Primary Care Provider [phone] Encounter Details Date Type Department Care Team (Late st Contact Info) Description 09/24/2013 Documentation [facility] Family Medicine [address] [place] [address] Family Medicine, Physician [address] [place], [place] [phone] Social History Tobacco Use Types Packs/Day Years [...] on filedocumented in this encounter Care Teams Senior Genetic Counselor Relationship Specialty Start Date End Date Ari Latham MD [address] [place] [phone] PCP - General 11/15/16 07/07/22 documented as of this encounter
--- OUTSIDE RECORDS SUMMARY | 2024-06-07 12:02 | XMS_ITS | Encounter Summary ---
Author Organization [employer] Address [address] [place] [address] Care Team Providers Care Still Tender Name Role Phone [facility] Primary Care Provider [phone] Paul Yu Unavailable Unavailable Reason for Visit * Reason Onset Date Comments Appointment Request 11/08/2022 Encounter Details Date Type Department Care Team (Late st Contact Info) Description 11/08/2022 Telephone [facility] MEDICINE [address] [place] [address] [facility] [address] [place] [address] Appointment Request Social History Tobacco Use Types Packs/Day Years Used Date Smoking Tobacco: Never Passive Smoke Exposure: Never Smokeless Tobacco: Never Alcohol Use Standard Drinks/Week Comments Never 0 (1 standard drink = 0.6 oz pur e alcohol) Comments Unknown Sex and Gender Information Value Date Recorded Sex Assigned at Female 02/04/2022 10:32 AM EDT Legal Sex Female 10:32 AM EDT Gender Identity Female 02/04/2022 10:32 AM EDT Sexual Orientation Straight 02/04/2022 10 :32 AM EDT documented as of this encounter Miscellaneous Notes * Telephone Encounter - Zaida Banks RN - 11/11/2022 1:18 PM EDT T/C to pt. For below message, pt. Schedule for HDF follow up apt. On 11/19/2022. Pt. Verbally agreed and understood,. Advised to give call to [facility] if any questions or concerns. * Telephone Encounter - Ade Corrales - 11/08/2022 1:58 PM EDT Tc from patient requesting a f/u appt, due to getting her [place] [facility] [place] documented in this encounter Plan of Treatment Upcoming Encounters Date Type Department Care Team (Late st Contact Info) Description 06/25/2024 9:00 AM EDT Office Visit [facility] MEDICINE [address] [place] [address] Sofy Cardenas FNP [address] [place] [address] documented as of this encounter Visit Diagnoses Not on filedocumented in this encounter Additional Health Concerns Assessment Noted Time PHQ-9 Depression Total Score: 3 09/27/19 9:18 AM EDT documented as of this encounter Care Teams Still Tender Relationship Specialty Start Date End Date Sofy Cardenas FNP [address] [place] [address] PCP - General Family Medicine 11/30/21 Paul Yu FNP [address] [place] [address] Nurse Practitioner Family Medicine 02/26/23 documented as of this encounter
--- OUTSIDE RECORDS SUMMARY | 2024-06-07 12:02 | XMS_ITS | Encounter Summary ---
Author Organization [facility] Address [address] [place] [address] Phone Care Team Providers Care Electric Golf Cart Repairer Name Role Phone Ari Latham MD Primary Care Provider [phone] Encounter Details Date Type Department Care Team (Late st Contact Info) Description 03/06/2010 Documentation [facility] [place] [address] [place] [address] Family Medicine, Physician [address] [place] [id number] Social History Tobacco Use Types Packs/Day Years [...] on filedocumented in this encounter Care Teams Electric Golf Cart Repairer Relationship Specialty Start Date End Date Ari Latham MD [address] [place] [address] PCP - General 11/15/16 07/07/22 documented as of this encounter
--- OUTSIDE RECORDS SUMMARY | 2024-06-07 12:02 | XMS_ITS | Encounter Summary ---
Author Organization [employer] Address [address] [facility] 7 [place] [address] Care Team Providers Care Appeals Analyst Name Role Phone Sofy Cardenas TRAUMA NURSE Primary Care Provider [phone] Paul Yu Unavailable Unavailable Reason for Visit * Reason Comments Leg Problem Encounter Details Date Type Department Care Team (Late st Contact Info) Description 05/26/2024 3:00 PM EST Office Visit [facility] [address] [place] [address] Laya Herring MD [address] [place] [address] Irritant contact dermatitis due to other agents (Primary Dx) Social History Tobacco Use Types Packs/Day Years [...] AM EDT documented as of this encounter Last Filed Vital Signs Vital Sign Reading Time Taken Comments Blood Pressure 135/84 05/26/2024 3:08 PM EST Pulse 89 05/26/2024 3:08 PM EST Temperature 36.8 ??C (98.2 ??F) 05/26/2024 3:08 PM ES T Respiratory Rate 18 05/26/2024 3:08 PM EST Oxygen Saturation 99% 05/26/2024 3:08 PM EST Inhaled Oxygen Concentration - - Weight 113 kg (250 lb) 05/26/2024 3:08 PM EST Height - - Body Mass Index 48.82 03/19/2024 1:38 PM EST documented in this encounter Progress Notes * Laya Bundy MD - 05/26/2024 3:00 PM EST Images from the original note were not included. SUBJECTIVE: Fabiola Varela is a 28 y.o. year old female who presents for rash, infection? . Acute Concerns: Patient reports she recently had surgery (ACL repair) left side and she noticed about 1 week ago after she removed the cover of the surgical wound, skin changes redness and dry skin area, she came inbecause she is worried that is infected, she denies discharge, warm sensation, fever, malaise or other symptoms Social History Social History Narrative Not on file Patient Active Problem List Diagnosis Seasonal allergies PCOS (polycystic ovarian syndrome) Migraine without aura Hearing loss Gastroesophageal reflux disease Focal nodular hyperplasia of liver Attention deficit hyperactivity disorder (ADHD) Asthma Arnold-Chiari malformation, type I (CMS/HCC) Mood disorder (CMS/HCC) Complex renal cyst Anemia Syncope Mixed anxiety and depressive disorder History of cholecystectomy Hemoptysis Sore throat Acute pain of right knee Muscle spasm of left lower extremity Irritant contact dermatitis due to other agents No family history on file. Review of Systems Constitutional: Negative. HENT: Negative. Respiratory: Negative. Cardiovascular: Negative. Skin: Positive for rash. OBJECTIVE: Vitals: 05/26/24 1508 BP: 135/84 BP Location: Left arm Patient Position: Sitting BP Cuff Size: Large adult Pulse: 89 Resp: 18 Temp: 98.2 ??F (36.8 ??C) TempSrc: Temporal SpO2: 99% Weight: 250 lb (113 kg) Physical Exam Constitutional: Appearance: Normal appearance. Cardiovascular: Rate and Rhythm: Normal rate and regular rhythm. Pulmonary: Effort: Pulmonary effort is normal. Breath sounds: Normal breath sounds. Abdominal: General: Abdomen is flat. Palpations: Abdomen is soft. Skin: Findings: Erythema and rash present. Comments: Dry, scaling erythematous rash Neurological: Mental Status: She is alert. Follow Up: No follow-ups on file. Current Outpatient Medications on File Prior to Visit Medication Sig Dispense Refill atomoxetine (Strattera) 25 MG capsule Take 1 capsule (25 mg) by mouth 2 times daily. Swallow capsule whole; do not open. If opened accidentally, do not touch eyes; wash hands immediately (product is an eye irritant). 180 capsule 3 cetirizine (ZyrTEC) 10 MG tablet take 1 tablet by oral route every day as needed for allergy symptoms 30 tablet 3 DULoxetine (Cymbalta) [address] capsule Take 1 capsule (20 mg) by mouth Once per day. Do not crush or chew. 90 capsule 3 EPINEPHrine (Adrenalin) 0.3 MG/0.3ML injection Inject 1 Applicator as directed as needed (allergic reaction). 2 each 1 gabapentin (Neurontin) 600 MG tablet TAKE 1 TABLET BY MOUTH THREE TIMES DAILY 90 tablet 2 ibuprofen 800 MG tablet Take 1 tablet by mouth every 8 (eight) hours if needed. lurasidone (Latuda) 60 MG tablet Take 1 tablet (60 mg) by mouth Once daily. Take with a meal 90 tablet 3 ondansetron ODT (Zofran-ODT) 8 MG disintegrating tablet Take 1 tablet (8 mg) by mouth every 8 (eight) hours if needed for nausea. 20 tablet 0 SUMAtriptan (Imitrex) 50 MG tablet TAKE 1 TABLET BY MOUTH AT ONSET OF MIGRAINE. MAY REPEAT ONCE AFTER 2 HOURS IF NEEDED DO NOT EXCEED 4 TABLETS DAILY 9 tablet 1 tiZANidine (Zanaflex) 4 MG tablet Take 1 tablet (4 mg) by mouth if needed in the morning and at bedtime for muscle spasms for up to 10 days. 20 tablet 0 topiramate (Topamax) 25 MG tablet Take 1 tablet by mouth 2 times daily. No current facility-administered medications on file prior to visit. Problem List Items Addressed This Visit Irritant contact dermatitis due to other agents - Primary Triamcinolone BID Avoid triggers Relevant Medications triamcinolone (Kenalog) 0.1 % cream documented in this encounter Miscellaneous Notes * Assessment & Plan Note - Laya Bundy MD - 05/26/2024 3:34 PM EST Associated Problem(s): Irritant contact dermatitis due to other agents Triamcinolone BID Avoid triggers documented in this encounter Plan of Treatment Upcoming Encounters Date Type Department Care Team (Late st Contact Info) Description 06/25/2024 9:00 AM EDT Office Visit [facility] MEDIC[facility] [address] [place] [address] [facility] [address] [place] [address] documented as of this encounter Visit Diagnoses Diagnosis Irritant contact dermatitis due to other agents- Primary documented in this encounter Additional Health Concerns Assessment Noted Time PHQ-9 Depression Total Score: 0 10/20/19 24 11:19 AM EDT documented as of this encounter Care Teams Appeals Analyst Relationship Specialty Start Date End Date Sofy Cardenas FNP [address] [place] [address] PCP - General Family Medicine 11/30/21 Paul Yu FNP [address] [place] [address] Nurse Practitioner Family Medicine 02/26/23 documented as of this encounter
--- OUTSIDE RECORDS SUMMARY | 2024-06-07 12:02 | XMS_ITS | Encounter Summary ---
Author Organization [employer] Address [address] [place] [address] Care Team Providers Care Assistant Project Manager Name Role Phone [facility] Primary Care Provider [phone] Paul Yu Unavailable Unavailable Reason for Visit * Reason Onset Date Comments Nurse Triage 04/15/2023 Encounter Details Date Type Department Care Team (Late st Contact Info) Description 04/15/2023 Telephone [facility] MEDICINE [address] [place] [address] [facility] [address] [place] [address] Nurse Triage Social History Tobacco Use Types Packs/Day Years Used Date Smoking Tobacco: Never Passive Smoke Exposure: Never Smokeless Tobacco: Never Alcohol Use Standard Drinks/Week Comments Never 0 (1 standard drink = 0.6 oz pur e alcohol) Depression Answer Date Recorded Patient Health Questionnaire-9 Score 6 03/06/2023 Patient Health Questionnaire-9 Score 6 03/06/2023 Last PHQ-9: Questionnaire Data Not on file 1 05/06/2022 Housing Stability Answer Date Recorded What is [...] Answer Date Recorded Patient Health Questionnaire-2 Score 3 03/06/2023 Comments Unknown Sex and Gender Information Value Date Recorded Sex Assigned at Female 02/04/2022 10:32 AM EDT Legal Sex Female 10:32 AM EDT Gender Identity Female 02/04/2022 10:32 AM EDT Sexual Orientation Straight 02/04/2022 10 :32 AM EDT documented as of this encounter Miscellaneous Notes * Telephone Encounter - Etta Rock RN - 04/15/2023 4:15 PM EST Triage call Pt reports hemoptysis for 2 months now. Pt reports had this quite often today with blood produced < tblsp in amount. Pt was seen by Dr. Reeves today and procedure was done , report is on the chart. Pt denies chest pain, difficulty breathing, fever and doesn't know if she ever had a TB test done. Pt reports the main symptom is throat pain, cough and hemoptysis. Pt is recommended to have a full work up . Pt requests to see provider. Apt with Dr. Cardenas 04/18/23 @ 1115Am. Insurance is verified as active prior to booking. Protocol Used: Coughing Up Blood (Adult) Protocol-Based Disposition: See in Office or Video Visit within 3 Days Video visit not offered Positive Triage Questions: * Cough has been present for > 3 weeks * More than one episode of coughing up blood and < 1 tablespoon (15 ml) of pure red blood * All higher-acuity triage questions were negative Care Advice Discussed: * Expected Course * Reasons To Call Back - You have difficulty breathing - Blood in phlegm continues or happens again - You cough up more than a tablespoon of pure red blood - You have a cough that lasts over 3 weeks - You become worse * Telephone Encounter - Romy Garrett - 04/15/2023 3:39 PM EST Symptom: Coughing Up Blood Outcome: Schedule an urgent appointment (within 1 hour) or talk to a nurse or provider soon Reason: Caller denied all higher acuity questions The caller accepted this outcome Please contact pt at [phone] documented in this encounter Plan of Treatment Upcoming Encounters Date Type Department Care Team (Late st Contact Info) Description 06/25/2024 9:00 AM EDT Office Visit [facility] MEDICINE [address] [place] [address] Sofy Cardenas FNP [address] [place] [address] documented as of this encounter Visit Diagnoses Not on filedocumented in this encounter Additional Health Concerns Assessment Noted Time PHQ-9 Depression Total Score: 6 03/06/20 23 2:58 PM EST documented as of this encounter Care Teams Assistant Project Manager Relationship Specialty Start Date End Date Sofy Cardenas FNP [address] [place] [address] PCP - General Family Medicine 11/30/21 Paul Yu FNP [address] [place] [address] Nurse Practitioner Family Medicine 02/26/23 documented as of this encounter
--- OUTSIDE RECORDS SUMMARY | 2024-06-07 12:02 | XMS_ITS | Encounter Summary ---
Author Organization [facility] Address [address] [place] [address] Phone Care Team Providers Care Service Person Name Role Phone Ari Latham MD Primary Care Provider [phone] Encounter Details Date Type Department Care Team (Late st Contact Info) Description 08/09/2013 Documentation [facility] [place] Family Medicine [address] [place] [address] Family Medicine, Physician [address] [place] [phone] Social History Tobacco Use Types Packs/Day Years [...] on filedocumented in this encounter Care Teams Service Person Relationship Specialty Start Date End Date Ari Latham MD [address] [place] [address] PCP - General 11/15/16 07/07/22 documented as of this encounter
--- OUTSIDE RECORDS SUMMARY | 2024-06-07 12:02 | XMS_ITS | Encounter Summary ---
Author Organization [facility] Address [address] [place] [address] Phone Care Team Providers Care Home Appliance Technician Name Role Phone Ari Latham MD Primary Care Provider [phone] Encounter Details Date Type Department Care Team (Late st Contact Info) Description 09/02/2013 Documentation [facility] [place] [address] [place] [address] Family Medicine, Physician [address] [place] [phone] Social History Tobacco Use Types Packs/Day Years [...] on filedocumented in this encounter Care Teams Home Appliance Technician Relationship Specialty Start Date End Date Ari Latham MD [address] [place] [address] PCP - General 11/15/16 07/07/22 documented as of this encounter
--- OUTSIDE RECORDS SUMMARY | 2024-06-07 12:02 | XMS_ITS | Encounter Summary ---
Author Organization [facility] Address [address] [place] [address] Care Team Providers Care Facing End Trimmer Name Role Phone [facility], Pcp Primary Care Provider Edgar e Kristy Brunson DO Primary Care Pro vider Unavailable [facility], Pcp Primary Care Provider Unavailmadyson e Encounter Details Date Type Department Care Team Description 05/22/2014 [facility] Medical Records [address] [place] [address] Social History Tobacco Use Types Packs/Day Years [...] on filedocumented in this encounter Care Teams Facing End Trimmer Relationship Specialty Start Date End Date [facility], Pcp PCP - General Internal Medicine 11/14/14 11/30/14 Kristy Brunson DO PCP - General Internal Medicine 12/01/14 04/12/19 [facility], Pcp PCP - General Internal Medicine 04/13/19 documented as of this encounter
--- OUTSIDE RECORDS SUMMARY | 2024-06-07 12:02 | XMS_ITS | Encounter Summary ---
Author Organization [facility] Address [address] [place] [address] Care Team Providers Care Applied Technologist Name Role Phone Kristy Brunson DO Primary Care Pro vider Unavailable [facility], Pcp Primary Care Provider Unavailabl e Encounter Details Date Type Department Care Team Description 07/24/2017 Pt. Non Urgent Medical Question Adult Medicine [address] [address] Janina Berumen FNP [address] [place] [address] Social History Tobacco Use Types Packs/Day Years Used Date Smoking Tobacco: Former Comments:quit 2014 Alcohol Use Standard Drinks/Week Comments Not Asked 0 (1 standard drink = 0.6 oz pur e alcohol) Sex Assigned at Date Recorded Not on file documented as of this encounter Progress Notes * Katalina Olsen M.A. - 07/25/2017 8:22 AM EDTFrom: Fabiola Varela To: HECTOR Guevara Sent: 07/24/2017 7:48 PM EDT Subject: Immunization records Good evening Dr. Berumen, I am wondering if you can fax a copy of my immunization records for me to attend [facility] in December at [phone], or if you can mail me a copy to give to them. González have a nice dayTavo Hicks documented in this encounter Plan of Treatment Not on file documented as of this encounter Visit Diagnoses Not on filedocumented in this encounter Care Teams Applied Technologist Relationship Specialty Start Date End Date Kristy Brunson DO PCP - General Internal Medicine 12/01/14 04/12/19 [facility], Pcp PCP - General Internal Medicine 04/13/19 documented as of this encounter
--- OUTSIDE RECORDS SUMMARY | 2024-06-07 12:02 | XMS_ITS | Clinical Summary ---
Author Organization [facility] Address [address] [place] [address] Care Team Providers Care Warp Scouring Vat Tender Name Role Phone Unavailable Primary Care Provider Unavailabl e Source Comments PLEASE NOTE, if this patient is a minor, it may be UNLAWFUL to discuss sensitive information that is contained in these records (such as FAMILY PLANNING, MENTAL HEALTH or SUBSTANCE ABUSE) with the minor patient's parent or other person without the patient's specific authorization.[facility] Allergies Active Allergy Reactions Criticality Noted Date Comments Amitriptyline Hives 03/06/2021 Azithromycin Nausea and Vomiting 01/10/2015 Other reaction(s): Nausea/Vomiting, Unknown Reaction not mentioned Patient unsure - discovered as a child. Reaction not mentioned Reaction not mentioned Patient unsure - discovered as a child. Cefuroxime Hives 12/01/2014 Other reaction(s): GI Problems, rash, Unknown vomiting vomiting vomiting vomiting vomiting vomiting vomiting Celecoxib Hives,Nausea and Vomiting,Rash Low 01/10/2015 Reaction not mentioned Reaction not mentioned Reaction not mentioned Reaction not mentioned Reaction not mentioned Reaction not mentioned Reaction not mentioned Clonidine Nausea and Vomiting 01/10/2015 mentioned Reaction not mentioned Reaction not mentioned Reaction not mentioned mentioned Reaction not mentioned Reaction not mentioned mentioned Reaction not mentioned Reaction not mentioned mentioned Dexlansoprazole Nausea and Vomiting 01/10/2015 Other reaction(s): Unknown Reaction not mentioned Reaction not mentioned Reaction not mentioned Erythromycin Nausea and Vomiting 01/05/2015 Other reaction(s): Nausea/Vomiting, rash, Unknown Patient unsure - discovered as a child. Patient unsure - discovered as a child. Grass Pollen-Red Top, Standard Runny nose 04/18/2022 Iodine (Bulk) Anxiety Low 01/13/2015 Methylphenidate Nausea and Vomiting 01/10/2015 Other reaction(s): Vomiting Reaction not mentioned Also hives. Reaction not mentioned Reaction not mentioned Reaction not mentioned Also hives. Other reaction(s): Vomiting Reaction not mentioned Also hives. Reaction not mentioned Also hives. Pantoprazole Nausea Only 01/13/2015 Other reaction(s): Unknown Patient unsure. Patient unsure. Polymyxin B Unknown 07/28/2020 Prazosin Headache,Nausea Only 10/30/2020 Raspberry Hives 01/13/2015 Shellfish Containing Products Anaphylaxis High 01/13/2015 Medications cetirizine (ZYRTEC) 10 mg tablet Take 10 mg by mouth daily 02/27/20 21 Active Epinephrine Base 0.3 mg/0.3 mL syrg Inject 0.3 mg into the muscle as needed (inject 1 applicator as directed) 11/20/19 23 Active gabapentin (NEURONTIN) 600 mg tablet Take 600 mg by mouth 3 (three) times a day 01/09/20 22 Active SUMAtriptan succinate (IMITREX) 50 mg tablet Take 50 mg by mouth 1 (one) time as needed for migraine 08/15/19 23 Active tiZANidine (ZANAFLEX) 4 mg tablet Take 4 mg by mouth 3 (three) times daily as needed Active topiramate (TOPAMAX) 25 mg tablet Take 1 Tablet by mouth twice a day 03/13/20 23 Active DULoxetine 40 mg cpDRIndications:A nxiety Take 1 Capsule by mouth daily for 30 days 30 Capsule 3 06/03/19 25 025 Active lurasidone 60 mg tabIndications:Ep isodic mood disorder ([facility]) Take 1 Tablet by mouth daily for 30 days 30 Tablet 2 06/03/19 25 025 Active atomoxetine (STRATTERA) 25 mg capsuleIndication s:Attention deficit hyperactivity disorder (ADHD), unspecified ADHD type Take 1 Capsule by mouth twice a day 60 Capsule 2 06/03/19 25 Active atomoxetine (STRATTERA) 25 mg capsuleIndication s:Attention deficit hyperactivity disorder (ADHD), unspecified ADHD type Take 1 Capsule by mouth twice a day 60 Capsule 2 03/11/20 24 025 Discontin ued(Reord er (E-Cancel Not Sent)) DULoxetine 40 mg cpDRIndications:A nxiety Take 1 Capsule by mouth daily. for 30 days 30 Capsule 3 03/11/20 24 025 Discontin ued(Reord er (E-Cancel Not Sent)) lurasidone 60 mg tabIndications:Ep isodic mood disorder ([facility]) Take 1 Tablet by mouth daily. for 30 days 30 Tablet 2 03/11/20 24 025 Discontin ued(Reord er (E-Cancel Not Sent)) Active Problems Problem Noted Date Diagnosed Date Acute pain of right knee 10/06/2023 Overview (11/27/2023): Last Assessment & Plan: Suspect hamstring strain, will reassess if not improving with rest and stretching over 6-8 weeks. Pt decines pt Muscle spasm of left lower extremity 10/06/2023 Overview (11/27/2023): Last Assessment & Plan: Prn muscle relaxor. Hemoptysis 04/18/2023 Overview (11/27/2023): Last Assessment & Plan: F/u with PCP History of cholecystectomy 11/24/2022 Overview (11/27/2023): ?? Lap Cholecystectomy 11/07/22 at [facility] performed by Dr. Rodrigez ?? Indication: recurrent biliary colic Last Assessment & Plan: -Pt reports doing very well post surgery, tolerating advanced diet -Encouraged to avoid high-fat and greasy foods -Continues with intermittent nausea, refill of Zofran sent PRN -Follow up as needed with any questions, concerns, or worsening of symptoms Anemia 07/23/2022 Overview (11/27/2023): Last Assessment & Plan: Unknown, unclear if she had GI bleeding. Repeat labs including hemoccult and iron studies. encouraged increase water intake FU in 1 week. Episodic mood disorder ([facility]) 05/09/2022 Overview (03/11/2024): Patient has been doing well on current regiment, No adjustments made to her medication and she is deemed stable at this time, she can continue follow-up with PCP. Last Assessment & Plan: Marked irritability with SSRI Celexa supports bipolar [...] She will continue with her therapist at [facility]. F/U 6 weeks. She agrees with the plan. Assessment & Plan (03/11/2024 6:11 PM EST): A: reports a stable mood , denies sammi and depressive symptoms. P: Continue Latuda Transfer to PCP chart will be attached Assessment & Plan (12/23/2023 2:49 PM EDT): A: reports a stable mood , denies sammi and depressive symptoms. P: Continue Latuda Assessment & Plan (11/27/2023 12:35 PM EDT): A: reports periods of decreased need for sleep, last incident 3 week ago, awake for 3 days straight, current mood is mildly depressed and anxious. P: Continue Latuda Increase Cymbalta to 40 mg Hearing problem of both ears 12/24/2021 Bilateral hearing loss 10/29/2021 History of Chiari malformation 10/29/2021 Hx of migraine headaches 10/29/2021 PCOS (polycystic ovarian syndrome) 10/29/2021 Intellectual disability 07/12/2021 Cholelithiasis with acute cholecystitis without obstruction 01/09/2021 Anxiety 01/04/2021 Assessment & Plan (12/23/2023 3:06 PM EDT): A: Improving, no reported concerns. P: continue Cymbalta Assessment & Plan (11/27/2023 12:37 PM EDT): A: racing thoughts, pacing, excessive worrying P: increase Cymbalta to 40 MG PO daily Chronic abdominal pain 01/04/2021 Overview (11/27/2023): Off meds since aware of PG Off meds since aware of PG Complex renal cyst 09/22/2020 Seizure ([facility] 09/10/2020 Migraine without aura 07/31/2020 Arnold-Chiari malformation, type I ([facility]) 09/2014 Overview (11/27/2023): MRI 2008 MRI 2008 MRI 2007 MRI 2007 Focal nodular hyperplasia of liver 01/10/2015 Overview (11/27/2023): Wedge resection of liver 05/2012 Wedge resection of liver 05/2012 Wedge resection of liver 05/2012 Wedge resection of liver 05/2012 Posttraumatic stress disorder 01/05/2015 Assessment & Plan (03/11/2024 6:12 PM EST): No active complains or symptoms, continue to monitor Assessment & Plan (11/27/2023 12:36 PM EDT): No active complains or symptoms, continue to monitor Seasonal allergies 01/05/2015 Morbid obesity ([facility]) 12/21/2013 Attention deficit hyperactivity disorder (ADHD) 06/15/2011 Overview (11/27/2023): Last Assessment & Plan: Continue Strattera 25 mg BID. Assessment & Plan (03/11/2024 6:12 PM EST): A: Concentration problem P: continue Strattera 25 mg PO BID, effective with concentration issues Assessment & Plan (12/23/2023 1:25 PM EDT): A: Concentration problem P: continue Strattera 25 mg PO BID, effective with concentration issues Assessment & Plan (11/27/2023 12:31 PM EDT): A: Concentration problem P: continue Strattera 25 mg PO BID Encounters Date Type Department Care Team Description 06/03/2024 2:00 PM EST Behavioral Health Visit [facility] [address] [place] [phone] Chanell Farrell APRN Anxiety; Episodic mood disorder ([facility]); Attention deficit hyperactivity disorder (ADHD), unspecified ADHD type 03/11/2024 12:30 PM EST Behavioral Health Visit [facility] [address] [place] [phone] Chanell Farrell APRN Posttraumatic stress disorder (Primary Dx); Attention deficit hyperactivity disorder (ADHD), unspecified ADHD type; Anxiety; Episodic mood disorder ([facility]) from Last 3 Months Family History Medical History Relation Name Comments No Known Problems Daughter Asthma Father Hypertension Father Arthritis Mother Schizophrenia Mother Schizophrenia Sister Relation Name Status Comments Daughter Alive Father Alive Mother Alive Sister Alive Social History Tobacco Use Types Packs/Day Years Used Date Smoking Tobacco: Former Cigarettes Q uit: 2019 Smokeless Tobacco: Never Tobacco Cessation:Counseling Given: Not Answered Alcohol Use Standard Drinks/Week Comments Not Asked [...] on file Sexual Orientation Not on file Plan of Treatment Upcoming Encounters Date Type Department Care Team ([facility] st Contact Info) Description 08/26/2024 1:00 PM EDT Behavioral Health Visit [facility] [address] [place] [phone] Chanell Farrell APRN [address] [facility] [place] [address] Health Maintenance Due Date Last Done Comments HPV Screening 1993 Hepatitis C Screening 1993 Lipid Screening 1993 Pap + HPV 1993 Relationship Safety Screening/Counseling 2008 Hypertension Screening (#1) 12/07/2011 Cervical Cancer Screening 2014 Pap Smear 2014 Diabetes Screening 06/29/2023 06/28/2022, 1 04/28/2020, 01/04/2021, Additional history exists [id number] ( season) 2023 11/19/2022, 11/21/2021, 08/17/2020, Additional history exists Imm-Influenza (#1) 2023 03/07/2014, 1 05/09/2012, 01/24/2012, Additional history exists Alcohol and Drug Screen 04/07/2024 Depression Annual Screen 04/07/2024 Tobacco Screening 11/26/2024 11/27/2023 Imm-DTaP/Tdap/Td (9 - Td or Tdap) 11/14/2027 11/13/2017, 02/20/2012, 01/23/2006, Additional history exists Imm-Hepatitis B Completed 10/04/1994, 02/07, 01/04/1994 HIV Screening Completed 04/18/2023, 04/07, 08/31/2021 Cervical Ablation/Cold-Knife Conization Discontinued Cervical Cryotherapy Discontinued Colposcopy Discontinued Endometrial Biopsy Discontinued Excision/Leep Discontinued HPV Genotyping Discontinued Vaginal Pap Discontinued Vulvoscopy Discontinued Insurance [place] MED[place] [facility]
--- OUTSIDE RECORDS SUMMARY | 2024-06-07 12:02 | XMS_ITS | Encounter Summary ---
Author Organization [email or web address] Address [address] [place] [address] Care Team Providers Care Engineer Intern Name Role Phone Sofy Cardenas Primary Care Provider [phone] Paul Yu Unavailable Unavailable Reason for Referral * Consultation (STAT) - Authorized Specialty Diagnoses / Procedures Referred By Neri murdock Referred To Contact Orthopaedic Surgery Diagnoses Rupture of anterior cruciate ligament of left knee, initial encounter Sofy Cardenas FNP [address] [place] [address] Phone: tel: fax: [facility] [address] [place] [address] Phone: tel: Referral ID Status Reason Start Date Expiration Date Visits Requested Visits Authorized [id number] Authorized Specialty Services Required 06/03/2024 06/03/2025 1 1 Encounter Details Date Type Department Care Team (Late st Contact Info) Description 06/03/2024 Orders Only [facility] [address] [place] [address] Sofy Cardenas FNP [address] [place] [address] Rupture of anterior cruciate ligament of left knee, initial encounter (Primary Dx) Social History Tobacco Use Types [...] Description 06/25/2024 9:00 AM EDT Office Visit [facility] [address] [place] [address] [place] Sofy [facility] [address] [place] [address] Scheduled Referrals Name Type Priority Associated Diagnoses Order Schedule Referral to Orthopaedic Surgery Outpatient Referral STAT Rupture of anterior cruciate ligament of left knee, initial encounter Expected: 06/03/2024 (Approximate), Expires: 06/03/2025 documented as of this encounter Visit Diagnoses Diagnosis Rupture of anterior cruciate ligament of left knee, initial encounter- Primary documented in this encounter Additional Health Concerns Assessment Noted Time PHQ-9 Depression Total Score: 0 10/20/19 24 11:19 AM EDT documented as of this encounter Care Teams Engineer Intern Relationship Specialty Start Date End Date Sofy Cardenas FNP [address] [place] [address] PCP - General Family Medicine 11/30/21 Paul Yu FNP [address] [place] [address] Nurse Practitioner Family Medicine 02/26/23 documented as of this encounter
--- OUTSIDE RECORDS SUMMARY | 2024-06-07 12:02 | XMS_ITS | Encounter Summary ---
Author Organization [employer] Address [address] [facility] 7 [place] [address] Care Team Providers Care Fast Foods Worker Name Role Phone [place] [facility] Primary Care Provider [phone] Paul Yu Unavailable Unavailable Encounter Details Date Type Department Care Team ([facility] st Contact Info) Description 02/12/2023 Telephone [facility] [address] [place] [address] [place] Sofy [facility] [address] [place] [address] Social History Tobacco Use Types Packs/Day Years Used Date Smoking Tobacco: Never Passive Smoke Exposure: Never Smokeless Tobacco: Never Alcohol Use Standard Drinks/Week Comments Never 0 (1 standard drink = 0.6 oz pur e alcohol) Depression Answer Date Recorded Patient Health Questionnaire-9 Score 1 12/16/2022 Housing Stability Answer Date Recorded What is [...] Date Recorded Patient Health Questionnaire-2 Score 0 12/16/2022 Comments Unknown Sex and Gender Information Value [...] Description 06/25/2024 9:00 AM EDT Office Visit [facility] [address] [place] [address] Sofy Cardenas FNP [address] [place] [address] documented as of this encounter Visit Diagnoses Not on filedocumented in this encounter Additional Health Concerns Assessment Noted Time PHQ-9 Depression Total Score: 1 12/17/19 23 1:45 PM EDT documented as of this encounter Care Teams Fast Foods Worker Relationship Specialty Start Date End Date Sofy Cardenas FNP [address] [place] [id number] PCP - General Family Medicine 11/30/21 Paul Yu FNP [address] [place] [id number] Nurse Practitioner Family Medicine 02/26/23 documented as of this encounter
--- OUTSIDE RECORDS SUMMARY | 2024-06-07 12:02 | XMS_ITS | Referral Summary ---
Author Organization [facility] Address [address] [place] [address] Care Team Providers Care Director Microbiology Name Role Phone [facility] Primary Care Provider [phone] Allergies Active Allergy Reactions Criticality Noted Date Comments Amitriptyline Fatigue 03/06/2021 Azithromycin Unknown 04/12/2022 Cefuroxime Axetil Hives,Unknown 04/12/2022 Celecoxib Hives,Nausea And Vomiting,Rash 01/10/2015 Reaction not mentioned Reaction not mentioned Clonidine Nausea And Vomiting 01/10/2015 mentioned Reaction not mentioned Reaction not mentioned Dexlansoprazole Unknown 04/12/2022 Erythromycin Unknown 04/12/2022 Gabapentin Anxiety 12/01/2014 Breathing problems Breathing problems Grass Pollen-Red Top, Standard Rhinorrhea 04/18/2022 Iodine (Bulk) Anxiety 01/13/2015 Lorazepam Anxiety 01/05/2015 Other reaction(s): agittated Methylphenidate Nausea And Vomiting 01/10/2015 Reaction not mentioned Also hives. Other reaction(s): Vomiting Reaction not mentioned Also hives. Reaction not mentioned Nortriptyline Fatigue High 01/05/2015 hives hives hives Other reaction(s): Itching, swelling, Trouble Breathing hives hives hives hives Penicillins Sweating 12/01/2014 swelling swelling swelling Other reaction(s): Nausea/Vomiting swelling swelling swelling swelling Polymyxin B Sweating 07/28/2020 Prazosin Headache,Nausea 10/30/2020 Shellfish Containing Products Unknown 01/13/2015 Medications SUMAtriptan (IMITREX) 50 mg tablet Active cetirizine (ZyrTEC) 10 mg tablet Take 10 mg by mouth daily as needed. 02/26/2021 Active hydrOXYzine HCL (ATARAX) 25 mg tablet Active ondansetron (ZOFRAN) 4 mg tablet Take 4 mg by mouth every 8 hours as needed. Active gabapentin (NEURONTIN) 600 mg tablet Active acetaminophen (TYLENOL) 325 mg tablet Take 650 mg by mouth every 4 hours as needed. 02/18/2022 Active citalopram (CeleXA) 20 mg tablet Take 20 mg by mouth once a day. 03/05/2022 Active Strattera 18 mg capsule Take 18 mg by mouth once a day. 07/04/2022 Active Active Problems Problem Noted Date Diagnosed Date Focal nodular hyperplasia of liver 04/12/2022 Hyperemesis gravidarum 12/27/2021 Overview (04/12/2022): Admitted to [facility] 12/26 for IV hydration and IV zofran and phenergan Subchorionic hemorrhage of placenta in first tri mester 12/27/2021 Hearing problem of both ears 12/24/2021 Miscarriage 12/24/2021 Overview (04/12/2022): AUDREY MONTERROSO OB-CMI score: 4 [12/24/2021] Group [...] answered. Miscarried on 12/28/21 Was seen at [facility]. [place] report in media This is her 3rd SAB. She will like to see an MD for fertility consult Obesity in 12/24/2021 Overview (04/12/2022): Obesity in (BMI >30) BMI at Intake [...] indicated * PP lovenox according to guidelines Chronic abdominal pain 10/29/2021 History of Chiari malformation 10/29/2021 Kidney cysts 10/29/2021 Urinary incontinence 10/29/2021 Hx of migraine headaches 10/29/2021 Fibromyalgia 10/29/2021 Gastroesophageal reflux disease without esophagi tis 10/29/2021 PTSD (post-traumatic stress disorder) 10/29/2021 Bilateral hearing loss 10/29/2021 PCOS (polycystic ovarian syndrome) 10/29/2021 Hearing loss 06/15/2011 Overactive child 06/15/2011 Social History Tobacco Use Types Packs/Day Years Used Date Smoking Tobacco: Former Smokeless Tobacco: Never Tobacco Cessation:Counseling Given: Not Answered Comments Unknown Sex and Gender Information Value Date Recorded Sex Assigned at Female 10/26/2021 8:32 AM EDT Legal Sex Female 1:57 PM EDT Gender Identity Female 10/26/2021 8:32 AM EDT Sexual Orientation Straight 10/26/2021 8: 32 AM EDT Last Filed Vital Signs Vital Sign Reading Time Taken Comments Blood Pressure 118/83 04/12/2022 9:06 AM EST Pulse 78 04/12/2022 9:06 AM EST Temperature 36.1 ??C (96.9 ??F) 04/12/2022 9:06 AM ES T Respiratory Rate 18 04/12/2022 9:06 AM EST Oxygen Saturation - - Inhaled Oxygen Concentration - - Weight 108.9 kg (240 lb) 04/12/2022 9:06 AM EST Height - - Body Mass Index - - Plan of Treatment Not on file Insurance [email or web address] Care Teams Director Microbiology Relationship Specialty Start Date End Date [facility] [address] [place] [id number] PCP - General 08/12/22
--- OUTSIDE RECORDS SUMMARY | 2024-06-07 12:02 | XMS_ITS | Encounter Summary ---
Author Organization [facility] Address [address] [place] [address] Care Team Providers Care Metal Fabricator Helper Name Role Phone Sofy Cardenas Primary Care Provider [phone] Encounter Details Date Type Department Care Team (Late st Contact Info) Description 10/29/2021 Orders Only [facility] Nuclear Medicine [address] [place] [address] Casey Lomeli MD [address] [place] [address] Social History Tobacco Use Types Packs/Day Years Used Date Smoking Tobacco: Former Smokeless Tobacco: Never Comments Unknown Sex and Gender Information Value [...] on filedocumented in this encounter Care Teams Metal Fabricator Helper Relationship Specialty Start Date End Date Sofy Cardenas [address] [place] [address] PCP - General 08/12/22 documented as of this encounter
--- OUTSIDE RECORDS SUMMARY | 2024-06-07 12:02 | XMS_ITS | Clinical Summary ---
Author Organization [facility] Address [address] [place] [address] Care Team Providers Care Radial Saw Operator Name Role Phone [facility] Primary Care Provider [phone] Allergies Active Allergy Reactions Criticality Noted Date [...] answered. Miscarried on 12/28/21 Was seen at [facility]. [place] report in media This is [...] 10/29/2021 Hearing loss 06/15/2011 Overactive child 06/15/2011 Family History Medical History Relation Name Comments Pancreatitis Father Relation Name Status Comments Father Social History Tobacco Use Types Packs/Day Years [...] Mass Index - - Plan of Treatment Health Maintenance Due Date Last Done Comments Cervical Cancer Screening 1993 HIV Screening 1993 HPV and Pap Smear 1993 Hepatitis C Screening 1993 Pap Smear 1993 Chlamydia Screening 2009 COVID-19 Vaccine ( season) 2023 11/19/2022, 11/21/2021, 08/17/2020, Additional history exists Influenza Vaccine (#1) 2023 4, 03/08/2013, 01/24/2012, Additional history exists Alcohol/Substance Use Screening 04/07/2024 Depression Screening and Follow-Up 04/07/2024 Social Drivers of Health Annual Screening 04/07/2024 DTaP,Tdap,and Td Vaccines (9 - Td or Tdap) 11/14/2027 11/13/2017, 02/20/2012, 01/23/2006, Additional history exists RSV Vaccine (60+ years old and patients) (1 - 1-dose 75+ series) 2068 Hepatitis B Vaccines Completed 10/04/1994, 03/06/1994, 01/04/1994 Varicella Vaccines Completed 01/25/2010, 08/04/1998 Pneumococcal Vaccine: Pediatric (0-5 Years) and At-Risk Patients (6-50 Years) Aged Out 11/21/2021 No longer eligible based on patient's age to complete this topic Insurance [employer] Care Teams Radial Saw Operator Relationship Specialty Start Date End Date [facility] [address] [place] [id number] PCP - General 08/12/22
--- OUTSIDE RECORDS SUMMARY | 2024-06-07 12:02 | XMS_ITS | Encounter Summary ---
Author Organization [employer] [facility] Address [address] [place] [address] Care Team Providers Care Exercise Equipment Specialist Name Role Phone [place] Sofy [facility] Primary Care Provider [phone] Paul Yu Unavailable Unavailable Reason for Visit * Reason Comments Med Refill Encounter Details Date Type Department Care Team (Late Contact Info) Description 12/11/2022 Refill [facility] [address] [place] [address] Yaima Shah FNP [address] [place] [address] Social History Tobacco Use Types Packs/Day Years [...] Encounters Date Type Department Care Team (Late Contact Info) Description 06/25/2024 9:00 AM EDT Office Visit [facility] [address] [place] [address] Sofy Carednas [facility] [address] [place] [address] documented as of this encounter Visit Diagnoses Not on filedocumented in this encounter Additional Health Concerns Assessment Noted Time PHQ-9 Depression Total Score: 3 09/27/19 23 9:18 AM EDT documented as of this encounter Care Teams Exercise Equipment Specialist Relationship Specialty Start Date End Date Sofy Cardenas FNP [address] [place] [address] PCP - General Family Medicine 11/30/21 Paul Yu FNP [address] [place] [id number] Nurse Practitioner Family Medicine 02/26/23 documented as of this encounter
--- OUTSIDE RECORDS SUMMARY | 2024-06-07 12:02 | XMS_ITS | Encounter Summary ---
Author Organization [employer] Address [address] [place] [address] Care Team Providers Care Supervisor Riveting Name Role Phone [place] [facility] Primary Care Provider [phone] Paul Yu Unavailable Unavailable Reason for Visit * Reason Onset Date Comments telephone call 06/01/2024 Encounter Details Date Type Department Care Team ([facility] st Contact Info) Description 06/01/2024 Telephone [facility] [address] [place] [address] [facility] [address] [place] [address] telephone call Social History Tobacco Use Types Packs/Day Years [...] encounter Miscellaneous Notes * Telephone Encounter - Rhina Cotsa - 06/01/2024 3:42 PM EST Pt walked in stating she has a appt on June 07 at [facility] and they are requesting a referral for here. documented in this encounter Plan of Treatment Upcoming Encounters Date Type Department Care Team (Late st Contact Info) Description 06/25/2024 9:00 AM EDT Office Visit [facility] [address] [place] [address] Sofy Cardenas FNP [address] [place] [address] documented as of this encounter Visit Diagnoses Not on filedocumented in this encounter Additional Health Concerns Assessment Noted Time PHQ-9 Depression Total Score: 0 10/20/19 24 11:19 AM EDT documented as of this encounter Care Teams Supervisor Riveting Relationship Specialty Start Date End Date Sofy Cardenas FNP [address] [place] [address] PCP - General Family Medicine 11/30/21 Paul Yu FNP [address] [place] [address] Nurse Practitioner Family Medicine 02/26/23 documented as of this encounter
--- OUTSIDE RECORDS SUMMARY | 2024-06-07 12:02 | XMS_ITS | Encounter Summary ---
Author Organization [facility] Address [address] [place] [address] Phone Care Team Providers Care Supervisor Special Effects Name Role Phone Ari Latham MD Primary Care Provider [phone] Encounter Details Date Type Department Care Team (Late st Contact Info) Description 03/06/2010 Documentation [facility] [place] Family Medicine [address] [place] [address] Family Medicine, Physician [address] [place], [place] [phone] Social History Tobacco Use Types Packs/Day Years [...] on filedocumented in this encounter Care Teams Supervisor Special Effects Relationship Specialty Start Date End Date Ari Latham MD [address] [place] [address] PCP - General 11/15/16 07/07/22 documented as of this encounter
--- OUTSIDE RECORDS SUMMARY | 2024-06-07 12:02 | XMS_ITS | Encounter Summary ---
Author Organization [facility] Address [address] [place] [address] Phone Care Team Providers Care Cook Apprentice Pastry Name Role Phone Ari Latham MD Primary Care Provider Encounter Details Date Type Department Care Team (Late st Contact Info) Description 03/06/2010 [place] [facility] [place] [address] [place] [address] Family Medicine, Physician [address] [place], [place] [phone] Social History Tobacco Use Types Packs/Day Years [...] on filedocumented in this encounter Care Teams Cook Apprentice Pastry Relationship Specialty Start Date End Date Ari Latham MD [address] [place] [address] PCP - General 11/15/16 07/07/22 documented as of this encounter
--- OUTSIDE RECORDS SUMMARY | 2024-06-07 12:02 | XMS_ITS | Encounter Summary ---
Author Organization [facility] Address [address] [place] [address] Phone Care Team Providers Care Fifth Grade Teacher Name Role Phone Ari Latham MD Primary Care Provider [phone] Encounter Details Date Type Department Care Team (Late st Contact Info) Description 09/10/[address] [facility] [place] Family Medicine [address] [place] [address] Family Medicine, Physician [address] [place], [place] [phone] Social History Tobacco Use Types Packs/Day Years [...] on filedocumented in this encounter Care Teams Fifth Grade Teacher Relationship Specialty Start Date End Date Ari Latham MD [address] [place] [address] PCP - General 11/15/16 07/07/22 documented as of this encounter
--- OUTSIDE RECORDS SUMMARY | 2024-06-07 12:02 | XMS_ITS | Clinical Summary ---
Author Organization [facility] Address [address] [address] Care Team Providers Care Collision Worker Name Role Phone Unavailable Primary Care Provider Unavailabl e Allergies Active Allergy Reactions Criticality Noted Date Comments Azithromycin 01/10/2015 Reaction not mentioned Cefuroxime 12/01/2014 vomiting Celecoxib 01/10/2015 Reaction not mentioned Clonidine 01/10/2015 Reaction not mentioned Dexlansoprazole 01/10/2015 Reaction not mentioned Erythromycin 01/05/2015 Gabapentin 12/01/2014 Breathing problems Lorazepam 01/05/2015 Methylphenidate 01/10/2015 Reaction not mentioned Nortriptyline 01/05/2015 hives Pantoprazole 01/13/2015 Penicillins 12/01/2014 swelling Raspberry 01/13/2015 Shellfish Allergy 01/13/2015 Medications topiramate (TOPAMAX) 25 MG tablet Take 25 mg by mouth 8 Active SUMAtriptan (IMITREX) 50 MG tablet TAKE 1 TABLET BY MOUTH AT ONSET OF MIGRAINE. MAY REPEAT AFTER 2 HOURS IF HEADACHE RETURNS. NOT TO EXCEED 200 MG IN 24 HOURS 1 Active prazosin (MINIPRESS) 1 MG capsule TAKE 1 CAPSULE BY MOUTH AT BEDTIME. MAY INCREASE TO 2 CAPSULES IN 3 DAYS IF WELL TOLERATED FOR PTSD 1 Active ondansetron (ZOFRAN) 4 MG tablet Take 4 mg by mouth 7 Active ondansetron ODT (ZOFRAN-ODT) 4 MG dispersible tablet DISSOLVE 2 TABLETS BY MOUTH EVERY 12 HOURS 1 Active hydrOXYzine (ATARAX) 25 MG tablet TAKE 1 TO 2 TABLETS BY MOUTH EVERY NIGHT AT BEDTIME NEEDED FOR NIGHT TIME ANXIETY 1 Active gabapentin (NEURONTIN) 300 MG capsule TAKE 1 CAPSULE BY MOUTH EVERY NIGHT AT BEDTIME 1 Active busPIRone (BUSPAR) 5 MG tablet TAKE 1 TABLET BY MOUTH TWICE DAILY FOR ANXIETY 1 Active DULoxetine (CYMBALTA) [address] capsule Take by mouth 1 (one) time each day 1 Active Active Problems Problem Noted Date Diagnosed Date Intellectual disability 07/12/2021 Gallbladder calculus with ac jonathan cholecystitis and no obstruction 01/09/2021 High lipase level in serum 01/09/2021 Tobacco use 01/04/2021 Major depressive disorder 01/04/2021 Overview (01/04/2021): [place] Fibromyalgia 01/04/2021 Asthma 01/04/2021 Anxiety 01/04/2021 Complex renal cyst 01/04/2021 Hearing loss 01/16/2015 Overview (01/04/2021): Bilateral severe, bilateral hearing aides Gastroesophageal reflux disease 01/10/2015 Focal nodular hyperplasia of liver 01/10/2015 Overview (01/04/2021): Wedge resection of liver 05/2012 Chiari malformation type I 01/10/2015 Overview (01/04/2021): MRI 2008 Learning disorder 01/10/2015 Overview (01/04/2021): Expressive language disorder Seasonal allergy 01/05/2015 Posttraumatic stress disorder 01/05/2015 Attention deficit hyperactivity disorder 015 Morbid obesity 12/21/2013 Immunizations Name Administration Dates Next Due DTP 07/06/1995, 5,06/04/1994,03/06 DTaP 08/04/1998, 6,08/04/1994,06/04,03/06/1994 DTaP / HiB / IPV 05/07/1995, 5,06/04/1994,03/06 DTaP 5 08/04/1998 HPV, Quadrivalent 08/06/2007,03/25/2007,01/24/20 07 Hep B, Adolescent or Pediatric 10/04/1994,1993,01/04/1994 Hepatitis A 10/05/2014 Hib (PRP-T) 05/07/1995, 5,06/04/1994,03/06 IPV 08/04/1998, 5,06/04/1994,03/06 Influenza LAIV (Nasal) 01/25/2010 Influenza Split 02/11/2011 Influenza TIV (IM) 02/11/2011,02/02/2009 Influenza, Quadrivalent, Pre servative Free 03/08/2013 Influenza, Quadrivalent, Wit h Preservative 03/07/2014 Influenza, Unspecified 01/24/2012 MMR 02/04/1998,05/07/1995 Meningococcal MCV4P 01/23/2007 OPV 08/04/1998, 5,06/04/1994,03/06 Tdap 11/13/2017,02/20/2012,01/23/2006 Varicella 01/25/2010,08/04/1998 Social History Tobacco Use Types Packs/Day Years Used Date Smoking Tobacco: Never Assessed Alcohol Use Standard Drinks/Week Comments Defer 0 (1 standard drink = 0.6 oz pur e alcohol) Comments Unknown Sex and Gender Information Value Date Recorded Sex Assigned at Female 10/11/2021 2:18 AM EDT Legal Sex Female 5:19 PM EST Gender Identity Female 10/11/2021 2:18 AM EDT Sexual Orientation Straight 10/11/2021 2: 18 AM EDT Last Filed Vital Signs Vital Sign Reading Time Taken Comments Blood Pressure 122/62 07/12/2021 2:05 PM EDT Pulse 92 07/12/2021 2:05 PM EDT Temperature - - Respiratory Rate - - Oxygen Saturation 99% 07/12/2021 2:05 PM EDT Inhaled Oxygen Concentration - - Weight 107 kg (236 lb 3.2 oz) 07/12/2021 2:05 PM EDT Height - - Body Mass Index - - Plan of Treatment Health Maintenance Due Date Last Done Comments Influenza Vaccine (#1) 2023 4, 03/08/2013, 01/24/2012, Additional history exists Hepatitis B Vaccine Completed 10/04/1994, 03/06/1994, 01/04/1994 Pneumococcal Vaccine: Pediatrics (0 to 5 Years) and At-Risk Patients (6 to 64 Years) Aged Out No longer eligible based on patient's age to complete this topic [place]
--- OUTSIDE RECORDS SUMMARY | 2024-06-07 12:02 | XMS_ITS | Encounter Summary ---
Author Organization [facility] Address [address] [place] [address] Care Team Providers Care Fitness Assistant Name Role Phone Kristy Brunson DO Primary Care Pro vider Unavailable [facility], Pcp Primary Care Provider Unavailabl e Encounter Details Date Type Department Care Team Description 02/21/2016 Release of Information Medical Records [address] [place] [id number] Abstract, Provider Social History Tobacco Use Types [...] on filedocumented in this encounter Care Teams Fitness Assistant Relationship Specialty Start Date End Date Kristy Brunson DO PCP - General Internal Medicine 12/01/14 04/12/19 Community, Pcp PCP - General Internal Medicine 04/13/19 documented as of this encounter
--- OUTSIDE RECORDS SUMMARY | 2024-06-07 12:02 | XMS_ITS | Encounter Summary ---
Author Organization [facility] Address [address] [place] [address] Phone Care Team Providers Care Radio Communications Superintendent Name Role Phone Ari Latham MD Primary Care Provider [phone] Encounter Details Date Type Department Care Team (Late st Contact Info) Description 11/08/2013 Documentation [facility] [place] [address] [place] [address] Family Medicine, Physician [address] [place], [place] [address] Social History Tobacco Use Types Packs/Day Years [...] on filedocumented in this encounter Care Teams Radio Communications Superintendent Relationship Specialty Start Date End Date Ari Latham MD [address] [place] [address] PCP - General 11/15/16 07/07/22 documented as of this encounter
--- OUTSIDE RECORDS SUMMARY | 2024-06-07 12:02 | XMS_ITS | Encounter Summary ---
Author Organization [employer] Address [address] [place] [address] [place] [address] Care Team Providers Care Pipe Racker Name Role Phone [place] [facility] Primary Care Provider [phone] Paul Yu Unavailable Unavailable Reason for Visit * Reason Onset Date Comments triage 07/05/2022 Encounter Details Date Type Department Care Team (Late st Contact Info) Description 07/05/2022 Telephone [facility] [address] [place] [address] [facility] [address] [place] [address] triage Social History Tobacco Use Types Packs/Day Years [...] Telephone Encounter - Etta Rock RN - 07/05/2022 10:37 AM EDT triage call to Pt, didn't answer. Call to Pt partner , Dawit, who called originally. Dawit reports Pthas been passing out, vomiting and not doing well since starting doxycycline. Pt is in ED at time of call. Advised to call [facility] after ED eval for follow up and Partner agrees. Protocol Used: Information Only Call - No Triage (Adult) Protocol-Based Disposition: Home Care Positive Triage Question: * Information only question and nurse able to answer * All higher-acuity triage questions were negative Care Advice Discussed: * Reasons To Call Back - New symptoms develop - You become worse * Telephone Encounter - Jewell Thomason - 07/05/2022 9:36 AM EDT Symptom: Vomiting Outcome: Schedule a same-day appointment or talk to a nurse or provider today Reason: No high acuity concerns reported by caller The caller accepted this outcome Tc from pt partner calling to inform is having medication side effect to medication doxycycline (Vibramycin) 100 MG capsule. documented in this encounter Plan of Treatment Upcoming Encounters Date Type Department Care Team (Late st Contact Info) Description 06/25/2024 9:00 AM EDT Office Visit [facility] [address] [place] [address] Sofy Cardenas FNP [address] [place] [address] documented as of this encounter Visit Diagnoses Not on filedocumented in this encounter Additional Health Concerns Assessment Noted Time PHQ-9 Depression Total Score: 5 07/05/19 23 9:22 AM EDT documented as of this encounter Care Teams Pipe Racker Relationship Specialty Start Date End Date Sofy Cardenas FNP [address] [place] [address] PCP - General Family Medicine 11/30/21 Paul Yu FNP [address] [place] [address] Nurse Practitioner Family Medicine 02/26/23 documented as of this encounter
--- OUTSIDE RECORDS SUMMARY | 2024-06-07 12:02 | XMS_ITS | Encounter Summary ---
Author Organization [facility] Address [address] [place] [address] Care Team Providers Care Railway Shunter Name Role Phone Kristy Brunson DO Primary Care Pro vider Unavailable [facility], Pcp Primary Care Provider Unavailabl e Encounter Details Date Type Department Care Team Description 07/02/2017 Night Triage Doc Medical Records [address] [place] [address] Abstract, Provider Social History Tobacco Use Types [...] on filedocumented in this encounter Care Teams Railway Shunter Relationship Specialty Start Date End Date Kristy Brunson DO PCP - General Internal Medicine 12/01/14 04/12/19 Community, Pcp PCP - General Internal Medicine 04/13/19 documented as of this encounter
--- OUTSIDE RECORDS SUMMARY | 2024-06-07 12:02 | XMS_ITS | Encounter Summary ---
Author Organization [facility] Address [address] [place] [address] Phone Care Team Providers Care Credit Interviewer Name Role Phone Ari Latham MD Primary Care Provider [phone] Encounter Details Date Type Department Care Team (Late st Contact Info) Description 02/24/2014 Documentation [facility] [place] [address] [place] [address] Family Medicine, Physician [address] [place], [place] [phone] Social History Tobacco Use Types Packs/Day Years [...] on filedocumented in this encounter Care Teams Credit Interviewer Relationship Specialty Start Date End Date Ari Latham MD [address] [place] [address] PCP - General 11/15/16 07/07/22 documented as of this encounter
--- OUTSIDE RECORDS SUMMARY | 2024-06-07 12:02 | XMS_ITS | Encounter Summary ---
Author Organization [facility] Address [address] [place] [address] Phone Care Team Providers Care Parts Department Supervisor Name Role Phone Ari Latham MD Primary Care Provider [phone] Encounter Details Date Type Department Care Team (Late st Contact Info) Description 11/08/2013 Documentation [facility] [place] Family Medicine [address] [place] [address] Family Medicine, Physician [address] [place], [place] 6[address] Social History Tobacco Use Types Packs/Day Years [...] on filedocumented in this encounter Care Teams Parts Department Supervisor Relationship Specialty Start Date End Date Ari Latham MD [address] [place] [address] PCP - General 11/15/16 07/07/22 documented as of this encounter
== END 2024-06-07 11:13 | disposition home or self-care (01) ==
PROVIDERS: Visit Provider Orthopaedic Surgery
DX: Z98.890 Other specified postprocedural states (principal)
CPT/HCPCS: 99024

== ENCOUNTER 2024-06-07 10:24 | Outpatient (REF) | payer MEDICAID, SELFPAY ==
--- NOTE | ~2024-06-07 | XR_ITS ---
EXAMINATION: XR KNEE, LEFT CLINICAL INFORMATION: Z98.890 - Other specified postprocedural states COMPARISON: April 22, 2024. TECHNIQUE: Two views of the left knee. FINDINGS: Radiopaque material related to likely ACL repair. No acute cortical disruption or malalignment. Joint space narrowing involving the medial lateral compartment. Sclerosis and the articular surface of the medial tibial plateau. No suprapatellar bursa joint effusion. No lytic or blastic lesions. XR/XR knee LT 2V IMPRESSION: Bicompartmental osteoarthrosis. No acute fracture or dislocation. Electronically signed by: Guille Emmanuel MD 06/08/2024 09:04 AM NAM SANCHEZ
--- OUTSIDE RECORDS SUMMARY | 2024-06-07 12:33 | XMS_ITS | Encounter Summary ---
Author Organization [facility] Address [address] [place] [address] Phone Care Team Providers Care Geological Scout Name Role Phone Ari Latham MD Primary Care Provider [phone] Encounter Details Date Type Department Care Team (Late st Contact Info) Description 11/27/2011 Documentation [facility] [place] [address] [place] [address] Family Medicine, Physician [address] [place], [place] [phone] Social History Tobacco Use Types Packs/Day Years [...] on filedocumented in this encounter Care Teams Geological Scout Relationship Specialty Start Date End Date Ari Latham MD [address] [place] [address] PCP - General 11/15/16 07/07/22 documented as of this encounter
--- OUTSIDE RECORDS SUMMARY | 2024-06-07 12:33 | XMS_ITS | Encounter Summary ---
Author Organization [facility] Address [address] [place] [address] Phone Care Team Providers Care Guitar Repair Technician Name Role Phone Ari Latham MD Primary Care Provider [phone] Encounter Details Date Type Department Care Team (Late st Contact Info) Description 04/24/2012 [place]ation [facility] [place] [address] [place] [address] Family Medicine, Physician [address] [place], [place] [phone] Social History Tobacco Use Types Packs/Day Years [...] on filedocumented in this encounter Care Teams Guitar Repair Technician Relationship Specialty Start Date End Date Ari Latham MD [address] [place] [address] PCP - General 11/15/16 07/07/22 documented as of this encounter
--- OUTSIDE RECORDS SUMMARY | 2024-06-07 12:33 | XMS_ITS | Encounter Summary ---
Author Organization [employer] Address [address] [place] [address] Care Team Providers Care Gate Operator Name Role Phone [place] [facility] Primary Care Provider [phone] Paul Yu CULINARY ARTS INSTRUCTOR Unavailable Unavailable Reason for Visit * Reason Onset Date Comments Results 06/07/2022 Encounter Details Date Type Department Care Team ([facility] st Contact Info) Description 06/07/2022 Telephone [facility] [address] [place] [address] [facility] [address] [place] [address] Results Social History Tobacco Use Types Packs/Day [...] 05/29/2022. Please contact pt with results at [phone] documented in this encounter Plan of Treatment Upcoming Encounters Date Type Department Care Team (Late st Contact Info) Description 06/25/2024 9:00 AM EDT Office Visit [facility] [address] [place] [address] [facility] [address] [place] [address] documented as of this encounter Visit Diagnoses Not on filedocumented in this encounter Additional Health Concerns Assessment Noted Time PHQ-9 Depression Total Score: 3 05/23/19 23 11:16 AM EST documented as of this encounter Care Teams Gate Operator Relationship Specialty Start Date End Date Sofy Cardenas FNP [address] [place] [address] PCP - General Family Medicine 11/30/21 Paul Yu FNP [address] [place] [address] Nurse Practitioner Family Medicine 02/26/23 documented as of this encounter
--- OUTSIDE RECORDS SUMMARY | 2024-06-07 12:33 | XMS_ITS | Encounter Summary ---
Author Organization [facility] Address [address] [place] [address] Phone Care Team Providers Care Top Stitcher Name Role Phone Ari Latham MD Primary Care Provider [phone] Encounter Details Date Type Department Care Team (Late st Contact Info) Description 05/22/2010 Documentation [facility] [place] Family Medicine [address] [place] [address] Family Medicine, Physician [address] [place], [place] [phone] Social History Tobacco Use Types Packs/Day Years [...] on filedocumented in this encounter Care Teams Top Stitcher Relationship Specialty Start Date End Date Ari Latham MD [address] [place] [address] PCP - General 11/15/16 07/07/22 documented as of this encounter
--- OUTSIDE RECORDS SUMMARY | 2024-06-07 12:33 | XMS_ITS | Clinical Summary ---
Author Organization [facility] Address [address] [place] [address] Phone Care Team Providers Care Appliances Sample Maker Name Role Phone Unavailable Primary Care Provider [...] complete this topic Procedures * Due to [place] state law, this organization might not be sharing sensitive test results. Procedure Name Priority Date/Time Associated Diagnosis Comments CHLAMYDIA AND GONORRHEA, AMPLIFIED Routine 10/06/2014 2:30 PM EDT from Last 3 Months or Most Recently Relevant to Health Maintenance Results * Due to [place] state law, this organization might not be sharing sensitive test results. * Chlamydia and Gonorrhoea, Amplified (10/06/2014 2:30 PM EDT) URINE CHLAMYDIA AMP PROBE NEGATIVE [facility] Comment: No Chlamydia Trachomatis RNA detected in this patient's sample (REFERENCE RANGE/NORMAL VALUE: NOT DETECTED) URINE GC AMP PROBE NEGATIVE [facility] Comment: No Neisseria Gonorrhoeae RNA detected in this patient's sample (REFERENCE RANGE/NORMAL VALUE: NOT DETECTED) NOTE: This test uses disease education specialist-mediated amplification method to detect rRNA from C.Trachomatis [...] without risk of sexual abuse. Consult the [facility] if needed. Contact phone number . Therapeutic failure or success cannot be determined with the Aptima Combo2 assay since nucleic acid may persist following appropriate antimicrobial therapy. The Centers for Disease Control and Prevention (CDC) recommends confirmatory retesting using culture or a different nucleic acid amplification test when positive results occur, if indicated. Testing performed or reported by [facility], a Service of [facility], [address] [place] [address] Sean Castro MD, PhD, Hammer Shop Supervisor 10/06/2014 2:30 PM EDT Narrative [facility] - 10/06/2014 2:30 PM EDT URINE CHLAMYDIA GC AMP PROBE us Bhumi Riojas NP LAB MICROBIOLOGY - GENERAL OR DERABLES Final Result [facility] [address] [place] [address], [place] from Last 3 Months or Most Recently Relevant to Health Maintenance
--- OUTSIDE RECORDS SUMMARY | 2024-06-07 12:33 | XMS_ITS | Encounter Summary ---
Author Organization [employer] Address [address] [facility] 7 [place] [address] Care Team Providers Care Power Electronics Research Engineer Name Role Phone Sofy Cardenas SIDE PANEL HANGER Primary Care Provider [phone] Paul Yu Unavailable Unavailable Encounter Details Date Type Department Care Team (Late st Contact Info) Description 09/16/2023 Orders Only [facility] MED & PEDS [address] [place] [address] Lanny Lamb FNP [address] [place] [address] Social History Tobacco Use Types Packs/Day Years [...] Description 06/25/2024 9:00 AM EDT Office Visit [facility] MEDICINE [address] [place] [address] [facility] [address] [place] [address] documented as of this encounter Procedures Procedure Name Priority Date/Time Associated Diagnosis Comments XR KNEE 1-2 VIEWS LEFT Routine 10/01/2023 2:15 AM EDT documented in this encounter Results * XR Knee 1-2 Views Left (10/01/2023 2:15 AM EDT) Anatomical Region Laterality Modality Lower Extremities, Knee Left [facility] Imaging 10/01/2023 2:15 AM EDT Narrative 10/01/2023 3:26 AM EDT ? [facility] ?[address] ?[place] [address] ?XRay Report ? Signed ? Patient: [place],Fabiola ?MR#: [id number] ?? [id number] ? : 1995 ?Acct:[id number] ? Age/Sex: 27 / F ?ADM Date: 06/26/24 ? Loc: HO.ED ? Attending Dr: ? Ordering Physician: Ernestine Lassiter MD ?? Date of Service: 10/01/23 ?? Procedure(s): XR knee LT 2V ?? Accession Number(s): [id number] ? cc: Ernestine Lassiter MD; Sofy Cardenas SIDE PANEL HANGER ? EXAMINATION: ?? XR KNEE, LEFT ? [...] 0322 ? DD/ 0215 ? TD/TT: ? Merchandising Professor: RK ? Procedure Note Valeriy, Priscilla - 10/01/[address] [address] XRay Report Signed Patient: Fabiola VarelaMR#: [id number] : 1995Acct:[id number] Age/Sex: 27 / FADM Date: 10/01/23 Loc: HO.ED Attending Dr: Ordering Physician: Ernestine Lassiter MD Date of Service: 10/01/23 Procedure(s): XR knee LT 2V Accession Number(s): [id number] cc: Ernestine Lassiter MD; [facility] EXAMINATION: XR KNEE, LEFT CLINICAL INFORMATION: Fall/pain. [...] in OV> 10/01/23 0322 DD/ 0215 TD/TT: Merchandising Professor: [facility] External Provider IMG XR PROCEDURES Edited Result - Final documented in this encounter Visit Diagnoses Not on filedocumented in this encounter Additional Health Concerns Assessment Noted Time PHQ-9 Depression Total Score: 2 07/07/19 24 10:19 AM EDT documented as of this encounter Care Teams Power Electronics Research Engineer Relationship Specialty Start Date End Date Sofy Cardenas FNP [address] [place] [address] PCP - General Family Medicine 11/30/21 Paul Yu FNP [address] [place] [address] Nurse Practitioner Family Medicine 02/26/23 documented as of this encounter
--- OUTSIDE RECORDS SUMMARY | 2024-06-07 12:33 | XMS_ITS | Clinical Summary ---
Author Organization [facility] Address [address] [address] Care Team Providers Care University Relations Recruiter Name Role Phone Unavailable Primary Care Provider [...]
--- OUTSIDE RECORDS SUMMARY | 2024-06-07 12:33 | XMS_ITS | Encounter Summary ---
Author Organization [employer] [facility] Address [address] [place] [address] Care Team Providers Care Instrument Maker Apprentice Name Role Phone [facility] Primary Care Provider [phone] Paul Yu Unavailable Unavailable Reason for Visit * Reason Onset Date Comments pt1 06/26/2022 PT1 07/09/2022 Encounter Details Date Type Department Care Team (Late st Contact Info) Description 06/26/2022 Telephone [facility] MEDICINE [address] [place] [address] [facility] [address] [place], [place] [phone] pt1; PT1 Social History Tobacco Use Types [...] 243 not 423 * Telephone Encounter - Pau Griffiths - 08/01/2022 8:02 AM EDT Patient will recieve approval / denial letter via mail. PT-1 Request [id number] Pending. [facility] * Telephone Encounter - Ade Corrales - 07/09/2022 8:51 AM EDT Tc from patient re calling in regards to message below. Patient has a surgery on 07/15/22. * Telephone Encounter - Adam Ramos - 06/26/2022 9:25 AM EDT Tc from pt requesting to renew pt1 Location:[address] [place] [address] Specialty: surgery Time: 6 am Date: July 15 2022 Electronic Calibration Technician: yes wheelchair accessible : no Location::[address] [place] [address] Specialty: post op Time: na Date:na Electronic Calibration Technician: yes wheelchair accessible :na documented in this encounter Plan of Treatment Upcoming Encounters Date Type Department Care Team (Late st Contact Info) Description 06/25/2024 9:00 AM EDT Office Visit [facility] MEDICINE [address] [place] [address] Sofy Cardenas FNP [address] [place] [address] documented as of this encounter Visit Diagnoses Not on filedocumented in this encounter Additional Health Concerns Assessment Noted Time PHQ-9 Depression Total Score: 3 05/23/19 23 11:16 AM EST documented as of this encounter Care Teams Instrument Maker Apprentice Relationship Specialty Start Date End Date Sofy Cardenas FNP [address] [place] [address] PCP - General Family Medicine 11/30/21 Paul Yu FNP [address] [place] [address] Nurse Practitioner Family Medicine 02/26/23 documented as of this encounter
--- OUTSIDE RECORDS SUMMARY | 2024-06-07 12:33 | XMS_ITS | Encounter Summary ---
Author Organization [facility] Address [address] [place] [address] Phone Care Team Providers Care Personal Computer Network Analyst Name Role Phone Ari Latham MD Primary Care Provider [phone] Encounter Details Date Type Department Care Team (Late st Contact Info) Description 09/11/2010 Documentation [facility] Family Medicine [address] [place] [address] Family Medicine, Physician [address] [place], [place] [id number] Social History Tobacco Use Types Packs/Day Years [...] on filedocumented in this encounter Care Teams Personal Computer Network Analyst Relationship Specialty Start Date End Date Ari Latham MD [address] [place] [address] PCP - General 11/15/16 07/07/22 documented as of this encounter
--- OUTSIDE RECORDS SUMMARY | 2024-06-07 12:33 | XMS_ITS | Encounter Summary ---
Author Organization [facility] Address [address] [place] [address] Phone Care Team Providers Care Charge Weigher Name Role Phone Ari Latham MD Primary Care Provider [phone] Encounter Details Date Type Department Care Team (Late st Contact Info) Description 06/15/2011 Documentation [facility] [place] [address] [place] [address] Family Medicine, Physician [address] [place] [id number] Social History Tobacco Use Types Packs/Day Years [...] on filedocumented in this encounter Care Teams Charge Weigher Relationship Specialty Start Date End Date Ari Latham MD [address] [place] [address] PCP - General 11/15/16 07/07/22 documented as of this encounter
--- OUTSIDE RECORDS SUMMARY | 2024-06-07 12:33 | XMS_ITS | Encounter Summary ---
Author Organization [facility] Address [address] [place] [address] Phone Care Team Providers Care Slot Supervisor Name Role Phone Ari Latham MD Primary Care Provider [phone] Encounter Details Date Type Department Care Team (Late st Contact Info) Description 06/11/2012 Documentation [facility] [place] [place] [address] [place] [address] Family Medicine, Physician [address] [place], [place] [phone] Social History Tobacco Use Types Packs/Day Years [...] on filedocumented in this encounter Care Teams Slot Supervisor Relationship Specialty Start Date End Date Ari Latham MD [address] [place] [address] PCP - General 11/15/16 07/07/22 documented as of this encounter
--- OUTSIDE RECORDS SUMMARY | 2024-06-07 12:33 | XMS_ITS | Encounter Summary ---
Author Organization [facility] Address [address] [place] [address] Phone Care Team Providers Care Work Car Operator Name Role Phone Ari Latham MD Primary Care Provider [phone] Encounter Details Date Type Department Care Team (Late st Contact Info) Description 03/09/2010 Documentation [facility] [place] [address] [place] [address] Family Medicine, Physician [address] [place], [place] [address] Social History Tobacco Use Types Packs/Day Years [...] on filedocumented in this encounter Care Teams Work Car Operator Relationship Specialty Start Date End Date Ari Latham MD [address] [place] [address] PCP - General 11/15/16 07/07/22 documented as of this encounter
--- OUTSIDE RECORDS SUMMARY | 2024-06-07 12:33 | XMS_ITS | Encounter Summary ---
Author Organization [facility] Address [address] [place] [address] Phone Care Team Providers Care Wire Drawing Die Maker Name Role Phone Ari Latham MD Primary Care Provider [phone] Encounter Details Date Type Department Care Team (Late st Contact Info) Description 03/20/2011 Documentation [facility] [place] [address] [place] [address] Family Medicine, Physician [address] [place] [phone] Social History Tobacco Use Types Packs/Day Years [...] on filedocumented in this encounter Care Teams Wire Drawing Die Maker Relationship Specialty Start Date End Date Ari Latham MD [address] [place] [address] PCP - General 11/15/16 07/07/22 documented as of this encounter
--- OUTSIDE RECORDS SUMMARY | 2024-06-07 12:34 | XMS_ITS | Encounter Summary ---
Author Organization [facility] Address [address] [place] [address] Phone Care Team Providers Care Net Developer Consultant Name Role Phone Ari Latham MD Primary Care Provider [phone] Encounter Details Date Type Department Care Team (Late st Contact Info) Description 09/02/2013 Documentation [facility] [place] [address] [place] [address] Family Medicine, Physician [address] [place], [place] [phone] Social History Tobacco Use Types Packs/Day Years [...] on filedocumented in this encounter Care Teams Net Developer Consultant Relationship Specialty Start Date End Date Ari Latham MD [address] [place] [address] PCP - General 11/15/16 07/07/22 documented as of this encounter
--- OUTSIDE RECORDS SUMMARY | 2024-06-07 12:34 | XMS_ITS | Encounter Summary ---
Author Organization [facility] Address [address] [place] [address] Phone Care Team Providers Care Wildlife Conservation Officer Name Role Phone Ari Latham MD Primary Care Provider [phone] Encounter Details Date Type Department Care Team (Late st Contact Info) Description 03/06/2010 Documentation [facility] [place] Family Medicine [address] [place] [address] Family Medicine, Physician [address] [place], [place] [phone] Social History Tobacco Use Types Packs/Day Years [...] on filedocumented in this encounter Care Teams Wildlife Conservation Officer Relationship Specialty Start Date End Date Ari aLtham MD [address] [place] [address] PCP - General 11/15/16 07/07/22 documented as of this encounter
--- OUTSIDE RECORDS SUMMARY | 2024-06-07 12:34 | XMS_ITS | Encounter Summary ---
Author Organization [facility] Address [address] [place] [address] Phone Care Team Providers Care Bilingual Sales Representative Name Role Phone Ari Latham MD Primary Care Provider Encounter Details Date Type Department Care Team (Late st Contact Info) Description 09/10/2013 Documentation [facility] [place] [address] [place] [address] Family Medicine, Physician [address] [place], [place] [phone] Social History Tobacco Use Types Packs/Day Years [...] on filedocumented in this encounter Care Teams Bilingual Sales Representative Relationship Specialty Start Date End Date Air Latham MD [address] [place] [address] PCP - General 11/15/16 07/07/22 documented as of this encounter
--- OUTSIDE RECORDS SUMMARY | 2024-06-07 12:34 | XMS_ITS | Encounter Summary ---
Author Organization [employer] [facility] Address [address] [place] [address] Care Team Providers Care Behavioral Scientist Name Role Phone Harrold Sofy [facility] Primary Care Provider [phone] Paul Yu Unavailable Unavailable Reason for Visit * Reason Comments Med Refill Encounter Details Date Type Department Care Team (Late Contact Info) Description 12/11/2022 Refill [facility] MEDICINE [address] [place] [address] Yaima Shah FNP [address] [place] [address] Social History Tobacco Use Types Packs/Day Years [...] Description 06/25/2024 9:00 AM EDT Office Visit [facility] MEDICINE [address] [place] [address] Sofy Cardenas [facility] [address] [place] [address] documented as of this encounter Visit Diagnoses Not on filedocumented in this encounter Additional Health Concerns Assessment Noted Time PHQ-9 Depression Total Score: 3 09/27/19 23 9:18 AM EDT documented as of this encounter Care Teams Behavioral Scientist Relationship Specialty Start Date End Date Sofy Cardenas FNP [address] [place] [address] PCP - General Family Medicine 11/30/21 Paul Yu FNP [address] [place] [address] Nurse Practitioner Family Medicine 02/26/23 documented as of this encounter
--- OUTSIDE RECORDS SUMMARY | 2024-06-07 12:34 | XMS_ITS | Referral Summary ---
Author Organization [facility] Address [address] [place] [address] Care Team Providers Care Tool Machine Setup Operator Name Role Phone [facility] Primary Care Provider [phone] Allergies Active Allergy Reactions Criticality Noted Date [...] answered. Miscarried on 12/28/21 Was seen at [facility]. US report in media This is [...] Plan of Treatment Not on [facility] Care Teams Tool Machine Setup Operator Relationship Specialty Start Date End Date [facility] [address] [place] [address] PCP - General 08/12/22
--- OUTSIDE RECORDS SUMMARY | 2024-06-07 12:34 | XMS_ITS | Encounter Summary ---
Author Organization [facility] Address [address] [place] [address] Care Team Providers Care Mirror Inspector Name Role Phone Sofy Cardenas Primary Care Provider [phone] Encounter Details Date Type Department Care Team (Late st Contact Info) Description 10/29/2021 Orders Only [facility] Nuclear Medicine [address] [place] [address] Casey Lomeli MD [address] [place] [address] Social History Tobacco Use Types Packs/Day Years [...] on filedocumented in this encounter Care Teams Mirror Inspector Relationship Specialty Start Date End Date Sofy Cardenas [address] [place] [address] PCP - General 08/12/22 documented as of this encounter
--- OUTSIDE RECORDS SUMMARY | 2024-06-07 12:34 | XMS_ITS | Clinical Summary ---
Author Organization [facility] Address [address] [place] [address] Care Team Providers Care Otc Clerk Name Role Phone [facility] Primary Care Provider [phone] Allergies Active Allergy Reactions Criticality Noted Date [...] answered. Miscarried on 12/28/21 Was seen at [facility]. US report in media This is her [...] patient's age to complete this topic Insurance [employer] Care Teams Otc Clerk Relationship Specialty Start Date End Date [facility] [address] [place] [address] PCP - General 08/12/22
--- OUTSIDE RECORDS SUMMARY | 2024-06-07 12:34 | XMS_ITS | Encounter Summary ---
Author Organization [facility] Address [address] [place] [address] Phone Care Team Providers Care Peoplesoft Hr Developer Name Role Phone Ari Latham MD Primary Care Provider [phone] Encounter Details Date Type Department Care Team (Late st Contact Info) Description 09/05/2009 Documentation [facility] [place] [address] [place] [address] Family Medicine, Physician [address] [place] [phone] Social History Tobacco Use Types Packs/Day Years [...] on filedocumented in this encounter Care Teams Peoplesoft Hr Developer Relationship Specialty Start Date End Date Ari Latham MD [address] [place] [address] PCP - General 11/15/16 07/07/22 documented as of this encounter
--- OUTSIDE RECORDS SUMMARY | 2024-06-07 12:34 | XMS_ITS | Encounter Summary ---
Author Organization [employer] Address [address] [place] [address] Care Team Providers Care Scarifier Operator Name Role Phone [facility] Primary Care Provider [phone] Paul Yu Unavailable Unavailable Reason for Visit * Reason Onset Date Comments Appointment Request 11/08/2022 Encounter Details Date Type Department Care Team (Late st Contact Info) Description 11/08/2022 Telephone [facility] MEDICINE [address] [place] [address] [facility] [address] [place] [address] Appointment Request Social History Tobacco Use Types [...] and understood,. Advised to give call to [facility] if any questions or concerns. * Telephone Encounter - Ade Corrales - 11/08/2022 1:58 PM EDT Tc from patient requesting a f/u appt, due to getting her gall bladder removed on 11/07/[address] [facility]. documented in this encounter Plan of Treatment Upcoming Encounters Date Type Department Care Team (Late st Contact Info) Description 06/25/2024 9:00 AM EDT Office Visit [facility] MEDICINE [address] [place] [address] Sofy Cardenas FNP [address] [place] [address] documented as of this encounter Visit Diagnoses Not on filedocumented in this encounter Additional Health Concerns Assessment Noted Time PHQ-9 Depression Total Score: 3 09/27/19 9:18 AM EDT documented as of this encounter Care Teams Scarifier Operator Relationship Specialty Start Date End Date Sofy Cardenas FNP [address] [place] [address] PCP - General Family Medicine 11/30/21 Paul Yu FNP [address] [place] [address] Nurse Practitioner Family Medicine 02/26/23 documented as of this encounter
--- OUTSIDE RECORDS SUMMARY | 2024-06-07 12:34 | XMS_ITS | Encounter Summary ---
Author Organization [facility] Address [address] [place] [address] Phone Care Team Providers Care Cooper Apprentice Name Role Phone Ari Latham MD Primary Care Provider [phone] Encounter Details Date Type Department Care Team (Late st Contact Info) Description 11/08/2013 Documentation [facility] [address] [place] [address] Family Medicine, Physician [address] [place], [place] [address] Social History Tobacco Use Types Packs/Day Years [...] on filedocumented in this encounter Care Teams Cooper Apprentice Relationship Specialty Start Date End Date Ari Latham MD [address] [place] [address] PCP - General 11/15/16 07/07/22 documented as of this encounter
--- OUTSIDE RECORDS SUMMARY | 2024-06-07 12:34 | XMS_ITS | Encounter Summary ---
Author Organization [facility] Address [address] [place] [address] Phone Care Team Providers Care Eyeglass Lens Cutter Name Role Phone Ari Latham MD Primary Care Provider Encounter Details Date Type Department Care Team (Late st Contact Info) Description 03/06/2010 Documentation [facility] [place] Medicine [address] [place] [address] Family Medicine, Physician [address] [place], [place] [phone] Social History Tobacco Use Types Packs/Day Years [...] on filedocumented in this encounter Care Teams Eyeglass Lens Cutter Relationship Specialty Start Date End Date Ari Latham MD [address] [place] [address] PCP - General 11/15/16 07/07/22 documented as of this encounter
--- OUTSIDE RECORDS SUMMARY | 2024-06-07 12:34 | XMS_ITS | Encounter Summary ---
Author Organization [facility] Address [address] [place] [address] Care Team Providers Care Pharmacy Technology Instructor Name Role Phone Ronald Arcola Primary Care Provider [phone] Reason for Visit * Reason Onset Date Comments schedule an appt 08/29/2021 Encounter Details Date Type Department Care Team (Late st Contact Info) Description 08/29/2021 Telephone [facility] Central Scheduling Department [address] [place] [address] Telephone Intake, Staff schedule an appt Social [...] Pleas give PT a call back at [phone] Fabiola is hearing impaired she uses a [...] on filedocumented in this encounter Care Teams Pharmacy Technology Instructor Relationship Specialty Start Date End Date Ronald Sofy [address] [place] [address] PCP - General 08/12/22 documented as of this encounter
--- OUTSIDE RECORDS SUMMARY | 2024-06-07 12:34 | XMS_ITS | Encounter Summary ---
Author Organization [facility] Address [address] [place] [address] Phone Care Team Providers Care Pharmacometrician Name Role Phone Ari Latham MD Primary Care Provider [phone] Encounter Details Date Type Department Care Team (Late st Contact Info) Description 09/24/2013 Documentation [facility] [place] [address] [place] [address] Family Medicine, Physician [address] [place], [place] [phone] Social History Tobacco Use Types Packs/Day Years [...] on filedocumented in this encounter Care Teams Pharmacometrician Relationship Specialty Start Date End Date Ari Latham MD [address] [place] [address] PCP - General 11/15/16 07/07/22 documented as of this encounter
--- OUTSIDE RECORDS SUMMARY | 2024-06-07 12:34 | XMS_ITS | Encounter Summary ---
Author Organization [facility] Address [address] [place] [address] Phone Care Team Providers Care Wig Sales Consultant Name Role Phone Ari Latham MD Primary Care Provider [phone] Encounter Details Date Type Department Care Team (Late st Contact Info) Description 11/21/2016 Conversion Encounter [facility] [address] [place] [address] Social History Tobacco Use Types Packs/Day Years [...] on filedocumented in this encounter Care Teams Wig Sales Consultant Relationship Specialty Start Date End Date Ari Latham MD [address] [place] [address] PCP - General 11/15/16 07/07/22 documented as of this encounter
--- OUTSIDE RECORDS SUMMARY | 2024-06-07 12:34 | XMS_ITS | Encounter Summary ---
Author Organization [employer] Address [address] [place] [address] Care Team Providers Care Brim Buster Name Role Phone Sofy Cardenas Primary Care Provider [phone] Paul Yu Unavailable Unavailable Reason for Referral * Consultation (STAT) - Authorized Specialty Diagnoses / Procedures Referred By Neri murdock Referred To Contact Orthopaedic Surgery Diagnoses Rupture of anterior cruciate ligament of left knee, initial encounter Sofy Cardenas FNP [address] [place] [address] Phone: tel: fax: [facility] [address] [place] [address] Phone: tel: Referral ID Status Reason Start Date Expiration Date Visits Requested Visits Authorized [id number] Authorized Specialty Services Required 06/03/2024 06/03/2025 1 1 Encounter Details Date Type Department Care Team (Late st Contact Info) Description 06/03/2024 Orders Only [facility] [address] [place] [address] Sofy Cardenas FNP [address] [place] [address] Rupture of anterior cruciate ligament of left [...] Description 06/25/2024 9:00 AM EDT Office Visit [facility] [address] [place] [address] [place] Sof[address] [facility] [address] [place] [address] Scheduled Referrals Name Type Priority Associated Diagnoses [...] documented as of this encounter Care Teams Brim Buster Relationship Specialty Start Date End Date Sofy Cardenas FNP [address] [place] [address] PCP - General Family Medicine 11/30/21 Paul Yu FNP [address] [place] [address] Nurse Practitioner Family Medicine 02/26/23 documented as of this encounter
--- OUTSIDE RECORDS SUMMARY | 2024-06-07 12:34 | XMS_ITS | Clinical Summary ---
Author Organization [facility] Address [address] [place] [address] Care Team Providers Care Tobacco Packer Name Role Phone Unavailable Primary Care Provider [...] lurasidone 60 mg tabIndications:Ep isodic mood disorder ([facility]) Take 1 Tablet by mouth daily for [...] lurasidone 60 mg tabIndications:Ep isodic mood disorder ([facility]) Take 1 Tablet by mouth daily. for [...] Overview (11/27/2023): ?? Lap Cholecystectomy 11/07/22 at [facility] performed by Dr. Rodrigez ?? Indication: recurrent [...] FU in 1 week. Episodic mood disorder ([facility]) 05/09/2022 Overview (03/11/2024): Patient has been doing [...] She will continue with her therapist at [facility]. F/U 6 weeks. She agrees with [...] of PG Complex renal cyst 09/22/2020 Seizure ([facility]) 09/10/2020 Migraine without aura 07/31/2020 Arnold-Chiari malformation, type I ([facility]) 09/2014 Overview (11/27/2023): MRI 2008 MRI 2008 [...] to monitor Seasonal allergies 01/05/2015 Morbid obesity ([facility]) 12/21/2013 Attention deficit hyperactivity disorder (ADHD) 06/15/2011 [...] EST Behavioral Health Visit [facility] [address] [place] [phone] Chanell Farrell APRN Anxiety; Episodic mood disorder ([facility]-CMS); Attention deficit hyperactivity disorder (ADHD), unspecified ADHD type 03/11/2024 12:30 PM EST Behavioral Health Visit [facility] [address] [place] [address] Chanell Farrell APRN Posttraumatic stress disorder (Primary [...] Upcoming Encounters Date Type Department Care Team ([facility] st Contact Info) Description 08/26/2024 1:00 PM EDT Behavioral Health Visit [facility] [address] [place] [phone] Chanell Farrell APRN [address] [facility] [place] [address] Health Maintenance Due Date Last Done Comments HPV Screening 1995 Hepatitis C Screening 1995 Lipid Screening 1995 Pap + HPV 1993 Relationship Safety Screening/Counseling 2008 Hypertension Screening (#1) 12/07/2011 Cervical Cancer Screening 2014 Pap Smear 2014 Diabetes Screening 06/29/2023 06/28/2022, 1 04/28/2020, 01/04/2021, Additional history exists [id number] ( season) 2023 11/19/2022, 11/21/2021, 08/17/2020, Additional [...] Discontinued Vaginal Pap Discontinued Vulvoscopy [place] [facility]
--- OUTSIDE RECORDS SUMMARY | 2024-06-07 12:34 | XMS_ITS | Encounter Summary ---
Author Organization [employer] Address [address] [place] [address] [place], [place] [address] Care Team Providers Care Emergency Planner Name Role Phone [place] [facility] Primary Care Provider [phone] Paul Yu Unavailable Unavailable Reason for Visit * Reason Onset Date Comments triage 07/05/2022 Encounter Details Date Type Department Care Team (Late st Contact Info) Description 07/05/2022 Telephone [facility] [address] [place] [address] [facility] [address] [place] [address] triage Social History Tobacco Use Types Packs/Day [...] 9:00 AM EDT Office Visit [facility] [address] [place] [address] Sofy Cardenas FNP [address] [place] [address] documented as of this encounter Visit Diagnoses Not on filedocumented in this encounter Additional Health Concerns Assessment Noted Time PHQ-9 Depression Total Score: 5 07/05/19 23 9:22 AM EDT documented as of this encounter Care Teams Emergency Planner Relationship Specialty Start Date End Date Sofy Cardenas FNP [address] [place] [address] PCP - General Family Medicine 11/30/21 Paul Yu FNP [address] [place] [address] Nurse Practitioner Family Medicine 02/26/23 documented as of this encounter
--- OUTSIDE RECORDS SUMMARY | 2024-06-07 12:34 | XMS_ITS | Clinical Summary ---
Author Organization [employer] Address [address] [place] [address] [place] [address] Care Team Providers Care Brick Picker Name Role Phone Sofy Cardenas [employer] SYSTEMS REPAIRER Primary Care Provider [phone] aPul Yu [employer] SYSTEMS REPAIRER Unavailable Unavailable Allergies Active Allergy Reactions Criticality [...] Overview (11/24/2022): ?? Lap Cholecystectomy 11/07/22 at [facility] performed by Dr. Rodrigez ?? Indication: recurrent [...] and motivation PLAN: 1. Follow up with [facility]: Not recommended for follow-up 2. Patient [...] so patient will be referred to new [facility] Psychiatric prescriber. She is aware that appts will be via televisit and that provider will not be an [facility] employee. She gives permission to share PHI. [...] then she will be referred to new [facility] Psychiatric prescriber. Continue with therapist. She agrees [...] continue. Will start with new therapist at [facility]. F/U 2-3 months. She agrees with the [...] She will continue with her therapist at [facility]. F/U 6 weeks. She agrees with the [...] She will continue with her therapist at [facility] but does not want to consider transferring [...] She will continue with her therapist at [facility] but does not want to consider transferring [...] She will continue with her therapist at [facility] but does not want to consider transferring [...] Hyperemesis gravidarum 12/27/202108/15 Overview (04/18/2022): Admitted to [facility] 12/26 for IV hydration and IV zofran and phenergan Admitted to [facility] 12/26 for IV hydration and IV zofran [...] answered. Miscarried on 12/28/21 Was seen at [facility]. [place] report in media This is [...] answered. Miscarried on 12/28/21 Was seen at [facility]. US report in media This is [...] Major depressive disorder 01/04/2021 Overview (04/18/2022): [facility] Anxiety 01/04/2021 08/15/2022 Seizure 09/10/2020 [...] Department Care Team Description 06/03/2024 Orders Only [facility] [address] [place] [address] Sofy Cardenas FNP Rupture of anterior cruciate ligament of left knee, initial encounter (Primary Dx) 06/01/[address] [address] Sofy Cardenas FNP telephone call 05/26/2024 3:00 PM EST [facility] [address] [address] Laya Herring MD Irritant contact dermatitis due to other agents (Primary Dx) 05/07/2024 Travel 04/30/[address] [address] Sofy Cardenas FNP 04/21/2024 [facility] [address] [facility] 04/14/2024 Orders Only GENERIC EXTERNAL DATA DEPARTMENT Provider, Generic External Data 03/23/[address] [address] Sofy Cardenas FNP Pre-op Notes 03/19/2024 1:30 PM EST Office Visit [address] [address] Sofy Cardenas FNP Rupture of anterior cruciate [...] Description 06/25/2024 9:00 AM EDT Office Visit [facility] [address] [place] [address] [place], Sofy, [employer] SYSTEMS REPAIRER [address] [place] [address] Health Maintenance Due Date Last Done Comments [...] 12 lead (04/21/2024 8:56 AM EST) Narrative [place] [facility] - 04/21/2024 8:56 AM EST NSR [facility] ECG ORDERABLES Final Result * HCG, Qualitative, Urine (04/14/2024 8:25 AM EST) Urine NEGATIVE NEGATIVE [facility] Comment:This test was develo ped to detect early . Falsenegative results may occur after the 5th - 7th week ofpregnancy when using this test method. If clinicallyindicated, consider a serum hCG. 04/14/2024 8:25 AM EST 04/14/2024 8:30 AM EST Generic External Data Provider LAB URINE ORDERAB LES Final Result Performing Organization Address [facility] Co de Phone Number [facility] [address] [place] [phone] * (ABNORMAL) Basic Metabolic Panel (03/19/2024 2:26 PM EST) Sodium 138 135 - 145 mmol/L [facility] Potassium 4.2 3.3 - 5.1 mmol/L [facility] Chloride 105 96 - 108 mmol/L [facility] Carbon Dioxide 28 22 - 29 mmol/L [facility] Anion Gap 9(L) 12 - 20 [facility] Urea Nitrogen (BUN) 12 9 - 16 mg/dL [facility] Creatinine, Serum 1.00 0.5 - 1.4 mg/dL [facility] Estimated Glomerular Filt Rate >60 [facility] Comment:Chronic Kidney Disea se: Estimated GFR < 60 mL/min/1.96i0Vslprn Kidney Disease: Estimated GFR < 15 mL/min/1.73m2 Glucose 81 60 - 115 mg/dL [facility] Calcium 9.9 8.4 - 10.2 mg/dL [facility] Blood Venous blood specimen / Unknown 03/19/2024 2:26 PM EST 03/19/2024 3:56 PM EST [facility] AVIONICS SYSTEMS REPAIRER LAB BLOOD ORDERABLES Final Re sult Performing Organization Address [facility] Co de Phone Number [facility] [address] [place] [phone] * (ABNORMAL) CBC auto differential (03/19/2024 2:24 PM EST) White Blood Count 9.5 4.8 - 10.8 X10*3/uL [facility] Red Blood Count 4.42 4.20 - 5.50 X10*6/uL [facility] Hemoglobin 14.2 12.0 - 16.0 g/dl [facility] Hematocrit 38.9 37.0 - 47.0 % [facility] Mean Corpuscular Volume 88.0 80.0 - 98.0 fL [facility] Mean Corpuscular Hemoglobin 32.1 27.0 - 33.0 pg [facility] Mean Corpuscular HGB Conc 36.5(H) 31.0 - 35.0 g/dl [facility] Red Cell Distribution Width 11.9 11.0 - 16.0 % [facility] Platelet Count 299 160 - 400 X10*3/uL [facility] Mean Platelet Volume 8.8(L) 9.4 - 12.3 fL [facility] Neutrophils Percent Auto 70.8 45 - 73 % [facility] Imm Gran Pct Auto 0.3 0.0 - 0.4 % [facility] Lymphocytes Percent Auto 21.0 20 - 40 % [facility] Monocytes Percent Auto 5.8 2 - 11 % [facility] Eosinophils Percent Auto 1.6 0 - 4 % [facility] Basophils Percent Auto 0.5 0 - 2 % [facility] NRBC Pct Auto 0.0 0.0 - 0.2 /100WBC [facility] Neutrophils Absolute Auto 6.7 2.0 - 8.3 x10*3/uL [facility] Imm Gran Abs Auto 0.03 0.00 - 0.03 X10*3/uL [facility] Lymphocytes Absolute Auto 2.0 1.2 - 4.9 X10*3/uL [facility] Monocytes Absolute Auto 0.6 0.1 - 1.2 X10*3/uL [facility] Eosinophils Absolute Auto 0.2 0.0 - 0.4 X10*3/uL [facility] Basophils Absolute Auto 0.1 0.0 - 0.2 X10*3/uL [facility] NRBC Abs Auto 0.000 0.0 - 0.012 X10*3/uL [facility] Blood Venous blood specimen / Unknown 03/19/2024 2:24 PM EST 03/19/2024 4:01 PM EST [facility] LAB BLOOD ORDERABLES Final Re sult Performing Organization Address [facility] Co de Phone Number [facility] [address] [place] [phone] * Prothrombin Time-INR (03/19/2024 2:24 PM EST) Prothrombin Time 11.6 10.9 - 12.4 SEC [facility] INTERNATIONAL NORM RATIO 1.0 0.9 - 1.1 [facility] Comment:INTERNATIONAL NORMAL IZED RATIO (INR) [...] 2:24 PM EST 03/19/2024 4:01 PM EST [facility] LAB BLOOD ORDERABLES Final Re sult Performing Organization Address [facility] Co de Phone Number [facility] [address] [place] [phone] * HIV-1/2 Antigen and Antibodies, Fourth Generation, with Reflexes (04/18/2023 12:05 PM EST) HIV AB/AG Nonreactive Nonreactive [facility] Comment:HIV-1 p24 Ag and/or HIV-1/HIV-2 Ab not detected.A test result that is nonreactive does not exclude thepossibility of exposure to or infection with HIV-1 and/orHIV-2. Nonreactive results in this assay for individualswith prior exposure to HIV-1 and/or HIV-2 may be due toantigen and antibody levels that are below the limit ofdetection of this assay.The [employer] Alinity HIV Ag/Ab Combo assay result andsupplemental assay results should be interpreted inconjunction with the patient's clinical presentation,history and other laboratory results. If the results areinconsistent with clinical evidence, additional testing issuggested to confirm the result. Blood Venous blood specimen / Unknown 04/18/2023 12:05 PM EST 04/18/2023 1:04 PM EST us Laya Bundy MD LAB BLOOD ORDERABLES Final Result Performing Organization Address City/State/[facility] Co de Phone Number [facility] [address] [place] [phone] * Pap Smear (02/19/2023 10:40 AM EST) 02/19/2023 10:4 0 AM EST 02/20/2023 10:45 AM EST Narrative [facility] - 03/11/2023 7:55 AM EST ----- ------- Name: Fabiola Varela ? Age/Sex: 27/F ? : 1995 Unit#: [id number] ?? Attend Dr: Sofy Cardenas ?Re02/19/23 ?Status: DEP REF ? Location: [facility] ? Disch: ? ----- ------- SPEC : [id number] ?RECD: 02/20/23 ? STATUS: ??SOUT ? REQ NUM: [id number] ? SERGO: 02/19/23 ? SUBM DR: Sofy [...] Signed (signature on file) J CARLOS Pena ([facility]) 03/11/23 0755 ? ----- ------- ? END OF REPORT ? [facility] AVIONICS SYSTEMS REPAIRER LAB CYTOLOGY ORDERABLES Final Result Performing Organization Address [facility] Co de Phone Number [facility] [address] [place] [phone] * Hepatitis C Ab (06/28/2022 2:05 PM EDT) [facility] Hepatitis C Antibody Nonreactive Nonreactive [facility] Comment:Antibodies to HCV no t detected; does not exclude early acuteHCV infection. 06/28/2022 2:05 PM EDT 06/28/2022 2:05 PM EDT [facility] External Provider LAB BLO OD ORDERABLES Final Result Performing Organization Address [facility] Co de Phone Number [facility] [address] [place] [address] [phone] from Last 3 Months or Most Recently Relevant to Health Maintenance Insurance [place] [employer] Care Teams Brick Picker Relationship Specialty Start Date End Date Sofy Cardenas FNP [address] [place] [address] PCP - General Family Medicine 11/30/21 Paul Yu FNP [address] [place] [address] Nurse Practitioner Family Medicine 02/26/23
--- OUTSIDE RECORDS SUMMARY | 2024-06-07 12:34 | XMS_ITS | Encounter Summary ---
Author Organization [facility] Address [address] [place] [address] Phone Care Team Providers Care Specialty Cook Name Role Phone Ari Latham MD Primary Care Provider [phone] Encounter Details Date Type Department Care Team (Late st Contact Info) Description 08/09/2013 Documentation [facility] Family Medicine [address] [place] [address] Family Medicine, Physician [address] [place] [phone] Social History Tobacco Use Types Packs/Day Years [...] on filedocumented in this encounter Care Teams Specialty Cook Relationship Specialty Start Date End Date Ari Latham MD [address] [place] [address] PCP - General 11/15/16 07/07/22 documented as of this encounter
--- OUTSIDE RECORDS SUMMARY | 2024-06-07 12:34 | XMS_ITS | Encounter Summary ---
Author Organization [facility] Address [address] [place] [address] Phone Care Team Providers Care Tool And Production Planner Name Role Phone Ari Latham MD Primary Care Provider [phone] Encounter Details Date Type Department Care Team (Late st Contact Info) Description 02/24/2014 Documentation [facility] Family Medicine [address] [place] [address] Family Medicine, Physician [address] [place], [place] [phone] Social History Tobacco Use Types Packs/Day Years [...] on filedocumented in this encounter Care Teams Tool And Production Planner Relationship Specialty Start Date End Date Ari Latham MD [address] [place] [address] PCP - General 11/15/16 07/07/22 documented as of this encounter
--- OUTSIDE RECORDS SUMMARY | 2024-06-07 12:34 | XMS_ITS | Encounter Summary ---
Author Organization [facility] Address [address] [place] [address] Phone Care Team Providers Care Cook Chili Name Role Phone Ari Latham MD Primary Care Provider [phone] Encounter Details Date Type Department Care Team (Late st Contact Info) Description 03/06/2010 Documentation [facility] [address] [place] [address] Family Medicine, Physician [address] [place] [phone] Social History Tobacco Use Types Packs/Day Years [...] filedocumented in this encounter Care Teams Cook Chili Relationship Specialty Start Date End Date Ari Latham MD [address] [place] [address] PCP - General 11/15/16 07/07/22 documented as of this encounter
--- OUTSIDE RECORDS SUMMARY | 2024-06-07 12:34 | XMS_ITS | Encounter Summary ---
Author Organization [employer] Address [address] [place] [address] Care Team Providers Care Staff Physical Therapist Name Role Phone [place] [facility] Primary Care Provider [phone] Paul Yu Unavailable Unavailable Reason for Visit * Reason Onset Date Comments Nurse Triage 04/15/2023 Encounter Details Date Type Department Care Team (Late st Contact Info) Description 04/15/2023 Telephone [facility] [address] [place] [address] [place] [facility] [address] [place] [address] Nurse Triage Social History Tobacco Use Types [...] accepted this outcome Please contact pt at [phone] documented in this encounter Plan of Treatment Upcoming Encounters Date Type Department Care Team (Late st Contact Info) Description 06/25/2024 9:00 AM EDT Office Visit [facility] [address] [place] [address] Sofy Cardenas FNP [address] [place] [address] documented as of this encounter Visit Diagnoses Not on filedocumented in this encounter Additional Health Concerns Assessment Noted Time PHQ-9 Depression Total Score: 6 03/06/20 23 2:58 PM EST documented as of this encounter Care Teams Staff Physical Therapist Relationship Specialty Start Date End Date Sofy Cardenas FNP [address] [place] [address] PCP - General Family Medicine 11/30/21 Paul Yu FNP [address] [place] [address] Nurse Practitioner Family Medicine 02/26/23 documented as of this encounter
--- OUTSIDE RECORDS SUMMARY | 2024-06-07 12:34 | XMS_ITS | Encounter Summary ---
Author Organization [facility] Address [address] [place] [address] Phone Care Team Providers Care Icer Air Conditioning Name Role Phone Ari Latham MD Primary Care Provider [phone] Encounter Details Date Type Department Care Team (Late st Contact Info) Description 11/08/2013 Documentation [facility] Family Medicine [address] [place] [address] Family Medicine, Physician [address] [place], [place] [address] Social History Tobacco Use Types Packs/Day Years [...] on filedocumented in this encounter Care Teams Icer Air Conditioning Relationship Specialty Start Date End Date Ari Latham MD [address] [place] [address] PCP - General 11/15/16 07/07/22 documented as of this encounter
--- OUTSIDE RECORDS SUMMARY | 2024-06-07 12:34 | XMS_ITS | Encounter Summary ---
Author Organization [employer] Address [address] [facility] 7 [place] [address] Care Team Providers Care Sales And Operations Trainee Name Role Phone Sofy Cardenas PATTERN TECHNICIAN Primary Care Provider [phone] Paul Yu Unavailable Unavailable Reason for Visit * Reason Comments Leg Problem Encounter Details Date Type Department Care Team (Late st Contact Info) Description 05/26/2024 3:00 PM EST Office Visit [facility] [address] [place] [address] Laya Herring MD [address] [place] [address] Irritant contact dermatitis due to other agents [...] Description 06/25/2024 9:00 AM EDT Office Visit [facility] [address] [place] [address] [facility] [address] [place] [address] documented as of this encounter Visit Diagnoses Diagnosis Irritant contact dermatitis due to other agents- Primary documented in this encounter Additional Health Concerns Assessment Noted Time PHQ-9 Depression Total Score: 0 10/20/19 24 11:19 AM EDT documented as of this encounter Care Teams Sales And Operations Trainee Relationship Specialty Start Date End Date Sofy Cardenas FNP [address] [place] [address] PCP - General Family Medicine 11/30/21 Paul Yu FNP [address] [place] [address] Nurse Practitioner Family Medicine 02/26/23 documented as of this encounter
--- OUTSIDE RECORDS SUMMARY | 2024-06-07 12:34 | XMS_ITS | Encounter Summary ---
Author Organization [employer] Address [address] [place] [address] Care Team Providers Care Software Configuration Manager Name Role Phone [facility] Primary Care Provider [phone] Paul Yu Unavailable Unavailable Reason for Visit * Reason Onset Date Comments telephone call 06/01/2024 Encounter Details Date Type Department Care Team ([facility] st Contact Info) Description 06/01/2024 Telephone [facility] [address] [place] [address] [facility] [address] [place] [address] telephone call Social History Tobacco Use Types [...] Miscellaneous Notes * Telephone Encounter - Rhina Costa - 06/01/2024 3:42 PM EST Pt walked in stating she has a appt on June [facility] at [facility] and they are requesting a referral for here. documented in this encounter Plan of Treatment Upcoming Encounters Date Type Department Care Team (Late st Contact Info) Description 06/25/2024 9:00 AM EDT Office Visit [facility] [address] [place] [address] Sofy Cardenas FNP [address] [place] [address] documented as of this encounter Visit Diagnoses Not on filedocumented in this encounter Additional Health Concerns Assessment Noted Time PHQ-9 Depression Total Score: 0 10/20/19 24 11:19 AM EDT documented as of this encounter Care Teams Software Configuration Manager Relationship Specialty Start Date End Date Sofy Cardenas FNP [address] [place] [address] PCP - General Family Medicine 11/30/21 Paul Yu FNP [address] [place] [address] Nurse Practitioner Family Medicine 02/26/23 documented as of this encounter
--- OUTSIDE RECORDS SUMMARY | 2024-06-07 12:34 | XMS_ITS | Encounter Summary ---
Author Organization [employer] Address 75 [facility] 7 [place] [address] Care Team Providers Care Insurance Executive Name Role Phone [facility] Primary Care Provider [phone] Paul Yu Unavailable Unavailable Encounter Details Date Type Department Care Team ([facility] st Contact Info) Description 02/12/2023 Telephone [facility] [address] [place] [address] [facility] [address] [place] [address] Social History Tobacco Use Types Packs/Day Years [...] Description 06/25/2024 9:00 AM EDT Office Visit [facility] [address] [place] [address] Sofy Cardenas FNP [address] [place] [address] documented as of this encounter Visit Diagnoses Not on filedocumented in this encounter Additional Health Concerns Assessment Noted Time PHQ-9 Depression Total Score: 1 12/17/19 23 1:45 PM EDT documented as of this encounter Care Teams Insurance Executive Relationship Specialty Start Date End Date Sofy Cardenas FNP [address] [place] [address] PCP - General Family Medicine 11/30/21 Paul Yu FNP [address] [place] [address] Nurse Practitioner Family Medicine 02/26/23 documented as of this encounter
--- OUTSIDE RECORDS SUMMARY | 2024-06-07 12:34 | XMS_ITS | Encounter Summary ---
Author Organization [facility] Address [address] [place] [address] Care Team Providers Care Cna Ltc Name Role Phone Unavailable Primary Care Provider Unavailabl e Encounter Details Date Type Department Care Team (Latest Contact Info) Description 06/03/2024 2:00 PM EST Behavioral Health Visit [facility] [address] [place] [phone] Chanell Farrell APRN [address] [place] [address] Anxiety; Episodic mood disorder (HCC-CMS); Attention deficit [...] Upcoming Encounters Date Type Department Care Team ([facility] st Contact Info) Description 08/26/2024 1:00 PM EDT Behavioral Health Visit [facility] [address] [place] [phone] Chanell Farrell APRN [address] [facility] [place] [address] documented as of this encounter Visit Diagnoses Diagnosis Anxiety Anxiety state, unspecified Episodic mood disorder (HCC-CMS) Unspecified episodic mood disorder Attention deficit hyperactivity disorder (ADHD), unspecified ADHD type documented in this encounter
== END 2024-06-07 10:25 | disposition home or self-care (01) ==
LOC: HO.HOSX 10:24
PROVIDERS: Visit Provider Orthopaedic Surgery
DX: Z98.890 Other specified postprocedural states (principal)
CPT/HCPCS: 73560; 99212

== ENCOUNTER → 2024-06-07 10:54 | Outpatient (BNV) | payer MEDICAID, SELFPAY | PROVIDERS: Visit Provider Radiology Diagnostic Radiology | DX: M17.12 Unilateral primary osteoarthritis, left knee (principal) | CPT/HCPCS: 73560 ==

== ENCOUNTER 2024-06-09 16:30 | Outpatient (REF) | payer MEDICAID, SELFPAY ==
--- OUTSIDE RECORDS SUMMARY | 2024-06-09 19:21 | XMS_ITS | Encounter Summary ---
Author Organization [facility] Address [address] [place] [address] Phone Care Team Providers Care Leadlighter Name Role Phone Ari Latham MD Primary Care Provider [phone] Encounter Details Date Type Department Care Team (Late st Contact Info) Description 11/27/2011 Documentation [facility] [place] Family Medicine [address] [place] [address] Family Medicine, Physician [address] [place] [id number] Social History Tobacco Use Types Packs/Day Years [...] on filedocumented in this encounter Care Teams Leadlighter Relationship Specialty Start Date End Date Ari Latham MD [address] [place] [address] PCP - General 11/15/16 07/07/22 documented as of this encounter
--- OUTSIDE RECORDS SUMMARY | 2024-06-09 19:21 | XMS_ITS | Encounter Summary ---
Author Organization [facility] Address [address] [place] [address] Phone Care Team Providers Care Pharmacognosy Teacher Name Role Phone Ari Latham MD Primary Care Provider [phone] Encounter Details Date Type Department Care Team (Late st Contact Info) Description 06/11/2012 [place] [facility] [place] [address] [place] [address] Family Medicine, Physician [address] [place] [id number] Social History Tobacco Use Types Packs/Day Years [...] on filedocumented in this encounter Care Teams Pharmacognosy Teacher Relationship Specialty Start Date End Date Ari Latham MD [address] [place] [address] PCP - General 11/15/16 07/07/22 documented as of this encounter
--- OUTSIDE RECORDS SUMMARY | 2024-06-09 19:21 | XMS_ITS | Encounter Summary ---
Author Organization [facility] Address [address] [place] [address] Phone Care Team Providers Care Workers' Compensation Magistrate Name Role Phone Ari Latham MD Primary Care Provider [phone] Encounter Details Date Type Department Care Team (Late st Contact Info) Description 05/22/2010 Documentation [facility] [place] [address] [place] [address] Family Medicine, Physician [address] [place] [phone] Social History Tobacco Use Types Packs/Day Years [...] on filedocumented in this encounter Care Teams Workers' Compensation Magistrate Relationship Specialty Start Date End Date Ari Latham MD [address] [place] [address] PCP - General 11/15/16 07/07/22 documented as of this encounter
--- OUTSIDE RECORDS SUMMARY | 2024-06-09 19:21 | XMS_ITS | Encounter Summary ---
Author Organization [employer] Address 75 [facility] 7 [place] [address] Care Team Providers Care Homogenizer Operator Name Role Phone Sofy Cardenas PIZZA DELIVERY DRIVER Primary Care Provider [phone] Paul Yu Unavailable Unavailable Encounter Details Date Type Department Care Team (Late st Contact Info) Description 09/16/2023 Orders Only [facility] [address] [place] [address] Lanny Lamb FNP [address] [place] [address] Social History Tobacco Use Types Packs/Day Years [...] Description 06/25/2024 9:00 AM EDT Office Visit [facility] [address] [place] [address] [facility] [address] [place] [address] documented as of this encounter Procedures Procedure Name Priority Date/Time Associated Diagnosis Comments XR KNEE 1-2 VIEWS LEFT Routine 10/01/2023 2:15 AM EDT documented in this encounter Results * XR Knee 1-2 Views Left (10/01/2023 2:15 AM EDT) Anatomical Region Laterality Modality Lower Extremities, Knee Left [facility] 10/01/2023 2:15 AM EDT Narrative 10/01/2023 3:26 AM EDT ? [facility] ?[address] ?[place] [address] ?XRay Report ? Signed ? Patient: Avery,Fabiola ?MR#: [id number] ?? [id number] ? : 1995 ?Acct:[id number] ? Age/Sex: 27 / F ?ADM Date: 06/26/24 ? Loc: HO.ED ? Attending Dr: ? Ordering Physician: Ernestine Lassiter MD ?? Date of Service: 10/01/23 ?? Procedure(s): XR knee LT 2V ?? Accession Number(s): [id number] ? cc: Ernestine Lassiter MD; Sofy Cardenas PIZZA DELIVERY DRIVER ? EXAMINATION: ?? XR KNEE, LEFT ? [...] 0322 ? DD/ 0215 ? TD/TT: ? Managing Director Atlas: RK ? Procedure Note Valeriy, Priscilla - 10/01/[address] [address] XRay Report Signed Patient: Fabiola VarelaMR#: [id number] : 1995Acct:[id number] Age/Sex: 27 / FADM Date: 10/01/23 Loc: HO.ED Attending Dr: Ordering Physician: Ernsetine Lassiter MD Date of Service: 10/01/23 Procedure(s): XR knee LT 2V Accession Number(s): [id number] cc: Ernestine Lassiter MD; [facility] EXAMINATION: XR KNEE, LEFT CLINICAL [...] in OV> 10/01/23 0322 DD/ 0215 TD/TT: Managing Director Atlas: [facility] External Provider IMG XR PROCEDURES Edited Result - Final documented in this encounter Visit Diagnoses Not on filedocumented in this encounter Additional Health Concerns Assessment Noted Time PHQ-9 Depression Total Score: 2 07/07/19 24 10:19 AM EDT documented as of this encounter Care Teams Homogenizer Operator Relationship Specialty Start Date End Date Sofy Cardenas FNP [address] [place] [address] PCP - General Family Medicine 11/30/21 Paul Yu FNP [address] [place] [address] Nurse Practitioner Family Medicine 02/26/23 documented as of this encounter
--- OUTSIDE RECORDS SUMMARY | 2024-06-09 19:21 | XMS_ITS | Encounter Summary ---
Author Organization [facility] Address [address] [place] [address] Phone Care Team Providers Care Cleaning Matron Name Role Phone Ari Latham MD Primary Care Provider [phone] Encounter Details Date Type Department Care Team (Late st Contact Info) Description 04/24/2012 Documentation [facility] Family Medicine [address] [place] [address] Family Medicine, Physician [address] [place], [place] [phone] Social History Tobacco Use Types Packs/Day Years [...] on filedocumented in this encounter Care Teams Cleaning Matron Relationship Specialty Start Date End Date Ari Latham MD [address] [place] [address] PCP - General 11/15/16 07/07/22 documented as of this encounter
--- OUTSIDE RECORDS SUMMARY | 2024-06-09 19:21 | XMS_ITS | Encounter Summary ---
Author Organization [facility] Address [address] [place] [address] Phone Care Team Providers Care Practice Representative Name Role Phone Ari Latham MD Primary Care Provider [phone] Encounter Details Date Type Department Care Team (Late st Contact Info) Description 06/15/2011 Documentation [facility] [place] [address] [place] [address] Family Medicine, Physician [address] [place], [place] [phone] Social History Tobacco Use Types Packs/Day Years [...] on filedocumented in this encounter Care Teams Practice Representative Relationship Specialty Start Date End Date Ari Latham MD [address] [place] [address] PCP - General 11/15/16 07/07/22 documented as of this encounter
--- OUTSIDE RECORDS SUMMARY | 2024-06-09 19:22 | XMS_ITS | Clinical Summary ---
Author Organization [facility] Address [address] [address] Care Team Providers Care Paginator Name Role Phone Unavailable Primary Care Provider [...]
--- OUTSIDE RECORDS SUMMARY | 2024-06-09 19:22 | XMS_ITS | Encounter Summary ---
Author Organization [facility] Address [address] [place] [address] Phone Care Team Providers Care Welt Sole Layer Name Role Phone Ari Latham MD Primary Care Provider [phone] Encounter Details Date Type Department Care Team (Late st Contact Info) Description 11/08/2013 Documentation [facility] Family Medicine [address] [place] [address] Family Medicine, Physician [address] [place], [place] [address] Social History Tobacco Use Types Packs/Day Years [...] on filedocumented in this encounter Care Teams Welt Sole Layer Relationship Specialty Start Date End Date Ari Latham MD [address] [place] [address] PCP - General 11/15/16 07/07/22 documented as of this encounter
--- OUTSIDE RECORDS SUMMARY | 2024-06-09 19:22 | XMS_ITS | Encounter Summary ---
Author Organization [facility] Address [address] [place] [address] Phone Care Team Providers Care Sack Cleaner Name Role Phone Ari Latham MD Primary Care Provider [phone] Encounter Details Date Type Department Care Team (Late st Contact Info) Description 03/06/2010 Documentation [facility] [place] [address] [place] [address] Family Medicine, Physician [address] [place], [place] [phone] Social History Tobacco Use Types Packs/Day Years [...] on filedocumented in this encounter Care Teams Sack Cleaner Relationship Specialty Start Date End Date Ari Latham MD [address] [place] [address] PCP - General 11/15/16 07/07/22 documented as of this encounter
--- OUTSIDE RECORDS SUMMARY | 2024-06-09 19:22 | XMS_ITS | Encounter Summary ---
Author Organization [employer] Address 75 [facility] 7 [place] [address] Care Team Providers Care Business Performance Advisor Name Role Phone Sofy Cardenas CHEF [employer]OID Primary Care Provider [phone] Paul Yu Unavailable Unavailable Encounter Details Date Type Department Care Team (Late st Contact Info) Description 06/09/2024 9:20 AM EST Office Visit [facility] 230 [place] [address] Laya Herring MD [address] [place] [address] Vaginal discharge (Primary Dx); UTI symptoms Social History Tobacco Use Types Packs/Day Years [...] Sign Reading Time Taken Comments Blood Pressure 124/72 06/09/2024 9:08 AM EST Pulse 62 06/09/2024 9:08 AM EST Temperature 36.7 ??C (98 ??F) 06/09/2024 9:08 AM EST Respiratory Rate 19 06/09/2024 9:08 AM EST Oxygen Saturation 99% 06/09/2024 9:08 AM EST Inhaled Oxygen Concentration - - Weight 117 kg (258 lb) 06/09/2024 9:08 AM EST Height 152.4 cm (5') 06/09/2024 9:08 AM EST Body Mass Index 50.39 06/09/2024 9:08 AM EST documented in this encounter Miscellaneous Notes * Assessment & Plan Note - Laya Bundy MD - 06/09/2024 9:52 AM EST Associated Problem(s): Vaginal discharge BV/CG done patient will be contacted with results * Assessment & Plan Note - Laya Bundy MD - 06/09/2024 9:52 AM EST Associated Problem(s): UTI symptoms Drink plenty of water do not hold urine documented in this encounter Plan of Treatment Upcoming Encounters Date Type Department Care Team (Late st Contact Info) Description 06/25/2024 9:00 AM EDT Office Visit [facility] [address] [place] [address] [place], Sofy, [facility] [address] [place], [place] [phone] Scheduled Orders Name Type Priority Associated Diagnoses Orde r Schedule Bacterial Vaginosis Microbiology Routine Vaginal discharge Ordered: 06/09/2024 Chlamydia/N. Gonorrhoeae RNA, TMA, Urogenitial Microbiology Routine Vaginal discharge Ordered: 06/09/2024 Culture, Urine, Routine Microbiology Routine Vaginal discharge Ordered: 06/09/2024 documented as of this encounter Procedures Procedure Name Priority Date/Time Associated Diagnosis Comments POCT URINALYSIS DIPSTICK Routine 06/09/2024 10:06 AM EST Vaginal discharge documented in this encounter Results * (ABNORMAL) POCT urinalysis dipstick manually resulted (06/09/2024 10:06 AM EST) Color, UA Yellow Clarity, UA Cloudy Glucose, UA Negative Bilirubin, UA Negative Ketones, UA Negative Spec Grav, UA 1.015 Blood, UA Positive(A) Negative, None Detected Comment:Trace pH, UA 7.0 Protein, UA Negative Urobilinogen, UA 0.2 Leukocytes, UA Many(A) Negative, Rare, Trace Comment:Large Nitrite, UA Negative Negative, None Detected Appearance, UA OK Urine 06/09/2024 10:0 6 AM EST us Laya Bundy MD POINT OF CARE TEST EN TER/EDIT ORDERABLES Final Result documented in this encounter Visit Diagnoses Diagnosis Vaginal discharge- Primary Leukorrhea, not specified as infective UTI symptoms documented in this encounter Additional Health Concerns Assessment Noted Time PHQ-9 Depression Total Score: 0 10/20/19 24 11:19 AM EDT documented as of this encounter Care Teams Business Performance Advisor Relationship Specialty Start Date End Date Sofy Cardenas FNP [address] [place] [address] PCP - General Family Medicine 11/30/21 Paul Yu FNP [address] [place] [address] Nurse Practitioner Family Medicine 02/26/23 documented as of this encounter
--- OUTSIDE RECORDS SUMMARY | 2024-06-09 19:22 | XMS_ITS | Encounter Summary ---
Author Organization [facility] Address [address] [place] [address] Phone Care Team Providers Care Oceanology Teacher Name Role Phone Ari Latham MD Primary Care Provider [phone] Encounter Details Date Type Department Care Team (Late st Contact Info) Description 03/06/2010 Documentation [facility] [place] [address] [place] [address] Family Medicine, Physician [address] [place], [place] [phone] Social History Tobacco Use Types Packs/Day Years [...] on filedocumented in this encounter Care Teams Oceanology Teacher Relationship Specialty Start Date End Date Ari Latham MD [address] [place] [address] PCP - General 11/15/16 07/07/22 documented as of this encounter
--- OUTSIDE RECORDS SUMMARY | 2024-06-09 19:22 | XMS_ITS | Encounter Summary ---
Author Organization [facility] Address [address] [place] [address] Phone Care Team Providers Care Attorney Recruiter Name Role Phone Ari Latham MD Primary Care Provider [phone] Encounter Details Date Type Department Care Team (Late st Contact Info) Description 09/24/2013 Documentation [facility] [place] [address] [place] [address] Family Medicine, Physician [address] [place], [place] [phone] Social History Tobacco Use Types Packs/Day Years [...] on filedocumented in this encounter Care Teams Attorney Recruiter Relationship Specialty Start Date End Date Ari Latham MD [address] [place] [address] PCP - General 11/15/16 07/07/22 documented as of this encounter
--- OUTSIDE RECORDS SUMMARY | 2024-06-09 19:22 | XMS_ITS | Encounter Summary ---
Author Organization [facility] Address [address] [place] [address] Care Team Providers Care Right Of Way Worker Name Role Phone Sofy Cardenas Primary Care Provider [phone] Encounter Details Date Type Department Care Team (Late st Contact Info) Description 10/29/2021 Orders Only [facility] Nuclear Medicine [address] [place] [address] Casey Lomeli MD [address] [place] [address] Social History Tobacco Use Types Packs/Day Years [...] on filedocumented in this encounter Care Teams Right Of Way Worker Relationship Specialty Start Date End Date Sofy Cardenas [address] [place] [address] PCP - General 08/12/22 documented as of this encounter
--- OUTSIDE RECORDS SUMMARY | 2024-06-09 19:22 | XMS_ITS | Encounter Summary ---
Author Organization [facility] Address [address] [place] [address] Phone Care Team Providers Care Body Maker Machine Setter Name Role Phone Ari Latham MD Primary Care Provider [phone] Encounter Details Date Type Department Care Team (Late st Contact Info) Description 09/11/2010 Documentation [facility] [place] Family Medicine [address] [place] [address] Family Medicine, Physician [address] [place] [phone] Social History Tobacco Use Types Packs/Day Years [...] on filedocumented in this encounter Care Teams Body Maker Machine Setter Relationship Specialty Start Date End Date Ari Latham MD [address] [place] [address] PCP - General 11/15/16 07/07/22 documented as of this encounter
--- OUTSIDE RECORDS SUMMARY | 2024-06-09 19:22 | XMS_ITS | Encounter Summary ---
Author Organization [facility] Address [address] [place] [address] Phone Care Team Providers Care Account Manager Trainee Name Role Phone Ari Latham MD Primary Care Provider [phone] Encounter Details Date Type Department Care Team (Late st Contact Info) Description 03/09/2010 Documentation [facility] [place] [address] [place] [address] Family Medicine, Physician [address] [place] [address] Social History Tobacco Use Types Packs/Day Years [...] on filedocumented in this encounter Care Teams Account Manager Trainee Relationship Specialty Start Date End Date Ari Latham MD [address] [place] [address] PCP - General 11/15/16 07/07/22 documented as of this encounter
--- OUTSIDE RECORDS SUMMARY | 2024-06-09 19:22 | XMS_ITS | Encounter Summary ---
Author Organization [employer] Address [address] [place] [address] Care Team Providers Care Sales Support Administrator Name Role Phone Sofy Cardenas Primary Care Provider [phone] Paul Yu Unavailable Unavailable Reason for Referral * Consultation (STAT) - Authorized Specialty Diagnoses / Procedures Referred By Neri murdock Referred To Contact Orthopaedic Surgery Diagnoses Rupture of anterior cruciate ligament of left knee, initial encounter Sofy Cardenas FNP [address] [place] [address] Phone: tel: fax: [facility] [address] [place] [address] Phone: tel: Referral ID Status Reason Start Date Expiration Date Visits Requested Visits Authorized [id number] Authorized Specialty Services Required 06/03/2024 06/03/2025 1 1 Encounter Details Date Type Department Care Team (Late st Contact Info) Description 06/03/2024 Orders Only [facility] [address] [place] [address] Sofy Cardenas FNP [address] [place] [address] Rupture of anterior cruciate ligament of left [...] Description 06/25/2024 9:00 AM EDT Office Visit [facility] [address] [place] [address] [place] Sofy [facility] [address] [place] [address] Scheduled Referrals Name Type Priority Associated Diagnoses Order Schedule Referral to Orthopaedic Surgery Outpatient Referral STAT Rupture of anterior cruciate ligament of left knee, initial encounter Expected: 06/03/2024 (Approximate), Expires: 06/03/2025 documented as of this encounter Procedures Procedure Name Priority Date/Time Associated Diagnosis Comments XR KNEE 1-2 VIEWS LEFT Routine 06/07/2024 10:54 AM EST documented in this encounter Results * XR Knee 1-2 Views Left (06/07/2024 10:54 AM EST) Anatomical Region Laterality Modality Lower Extremities, Knee Left Radiogra phic Imaging 06/07/2024 10:5 4 AM EST Narrative 06/08/2024 9:06 AM EST ? [facility] ? [address] ?[place] [address] ?XRay Report ? Signed ? Patient: Fabiola Varela ?MR#: [id number] ?? [id number] ? : 1995 ?Acct:[id number] ? Age/Sex: 28 / F ?ADM Date: 06/07/24 ? Loc: HO.HOSX ? Attending Dr: Oneal Rod MD ? Ordering Physician: Oneal Rod MD ?? Date of Service: 06/07/24 ?? Procedure(s): XR knee LT 2V ?? Accession Number(s): [id number] ? cc: Oneal Rod MD; [facility] [place] ? EXAMINATION: ?? XR KNEE, LEFT ? CLINICAL INFORMATION: ?? Z98.890 - Other specified postprocedural states ? COMPARISON: ?? April 22, 2024. ? TECHNIQUE: ?? Two views of the left knee. ? FINDINGS: ?? Radiopaque material related to likely ACL repair. No acute cortical ?? disruption or malalignment. Joint space narrowing involving the medial ?? lateral compartment. Sclerosis and the articular surface of the medial ?? tibial plateau. No suprapatellar bursa joint effusion. No lytic or ?? blastic lesions. ? XR/XR knee LT 2V ?? IMPRESSION: ?? Bicompartmental osteoarthrosis. ?? No acute fracture or dislocation. ? Electronically signed by: ??Guille Emmanuel MD ??06/08/2024 09:04 AM ?? EST RP ? Dictated By: ?Guille Hdez MD ? Signed By: ?<Electronically signed by Guille Cole MD in OV> ? 06/08/24 0904 ? DD/ 1054 ? TD/TT: 06/07/24 1100 ? Inbound Sales Representative: ? Procedure Note Donyefri, Image - 06/08/2024 [facility] [address] [place] [address] Drive [address] [place] [address] XRay Report Signed Patient: Fabiola VarelaMR#: [id number] : 1995Acct:[id number] Age/Sex: 28 / FADM Date: 06/07/24 Loc: HO.HOSX Attending Dr: Oneal Rod MD Ordering Physician: Oneal Rod MD Date of Service: 06/07/24 Procedure(s): XR knee LT 2V Accession Number(s): [id number] cc: Oneal Rod MD; [facility] [place] EXAMINATION: XR KNEE, LEFT CLINICAL INFORMATION: Z98.890 - Other specified postprocedural states COMPARISON: April 22, 2024. TECHNIQUE: Two views of the left knee. FINDINGS: Radiopaque material related to likely ACL repair. No acute cortical disruption or malalignment. Joint space narrowing involving the medial lateral compartment. Sclerosis and the articular surface of the medial tibial plateau. No suprapatellar bursa joint effusion. No lytic or blastic lesions. XR/XR knee LT 2V IMPRESSION: Bicompartmental osteoarthrosis. No acute fracture or dislocation. Electronically signed by: Guille Emmanuel MD 06/08/2024 09:04 AM [facility] Dictated By: Guille Hdez MD Signed By: <Electronically signed by Guille Cole MDin OV> 06/08/24 0904 DD/ 1054 TD/TT: 06/07/24 1100 Inbound Sales Representative: [facility] External Provider IMG XR PROCEDURES Final Result documented in this encounter Visit Diagnoses Diagnosis Rupture of anterior cruciate ligament of left knee, initial encounter- Primary documented in this encounter Additional Health Concerns Assessment Noted Time PHQ-9 Depression Total Score: 0 10/20/19 24 11:19 AM EDT documented as of this encounter Care Teams Sales Support Administrator Relationship Specialty Start Date End Date Sofy Cardenas FNP [address] [place] [address] PCP - General Family Medicine 11/30/21 Paul Yu FNP [address] [place] [address] Nurse Practitioner Family Medicine 02/26/23 documented as of this encounter
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
--- OUTSIDE RECORDS SUMMARY | 2024-06-09 19:22 | XMS_ITS | Encounter Summary ---
Author Organization [email or web address] Address [address] [facility] 7 [place] [address] Care Team Providers Care Logistics Program Manager Name Role Phone Sofy Cardenas AERONAUTICS COMMISSION DIRECTOR Primary Care Provider [phone] Paul Yu Unavailable Unavailable Reason for Visit * Reason Comments Leg Problem Encounter Details Date Type Department Care Team (Late st Contact Info) Description 05/26/2024 3:00 PM EST Office Visit [facility] [address] [place] [address] Laya Herring MD [address] [place] [address] Irritant contact dermatitis due to other agents [...] Description 06/25/2024 9:00 AM EDT Office Visit [facility] [address] [place] [address] [facility] [address] [place] [address] documented as of this encounter Visit Diagnoses Diagnosis Irritant contact dermatitis due to other agents- Primary documented in this encounter Additional Health Concerns Assessment Noted Time PHQ-9 Depression Total Score: 0 10/20/19 24 11:19 AM EDT documented as of this encounter Care Teams Logistics Program Manager Relationship Specialty Start Date End Date Sofy Cardenas FNP [address] [place] [address] PCP - General Family Medicine 11/30/21 Paul Yu FNP [address] [place] [address] Nurse Practitioner Family Medicine 02/26/23 documented as of this encounter
--- OUTSIDE RECORDS SUMMARY | 2024-06-09 19:22 | XMS_ITS | Encounter Summary ---
Author Organization [facility] Address [address] [place] [address] Care Team Providers Care Aircraft Instrument Mechanic Name Role Phone Kristy Brunson DO Primary Care Pro vider Unavailable [facility], Pcp Primary Care Provider Unavailabl e Encounter Details Date Type Department Care Team Description 04/09/2016 [place] Report Medical Records [address] [place] [address] Silvio Escamilla MD Social History Tobacco Use Types Packs/Day Years [...] on filedocumented in this encounter Care Teams Aircraft Instrument Mechanic Relationship Specialty Start Date End Date Kristy Brunson DO PCP - General Internal Medicine 12/01/14 04/12/19 [facility], Pcp PCP - General Internal Medicine 04/13/19 documented as of this encounter
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
--- OUTSIDE RECORDS SUMMARY | 2024-06-09 19:22 | XMS_ITS | Encounter Summary ---
Author Organization [facility] Address [address] [place] [address] Phone Care Team Providers Care Information Technology Internship Name Role Phone Ari Latham MD Primary Care Provider [phone] Encounter Details Date Type Department Care Team (Late st Contact Info) Description 11/08/2013 Documentation [facility] [address] [place] [address] Family Medicine, Physician [address], [place] [address] Social History Tobacco Use Types Packs/Day Years [...] on filedocumented in this encounter Care Teams Information Technology Internship Relationship Specialty Start Date End Date Ari Latham MD [address] [place] [address] PCP - General 11/15/16 07/07/22 documented as of this encounter
--- OUTSIDE RECORDS SUMMARY | 2024-06-09 19:22 | XMS_ITS | Encounter Summary ---
Author Organization [facility] Address [address] [place] [address] Care Team Providers Care Traffic Circuit Engineer Name Role Phone Ronald Marion Primary Care Provider [phone] Reason for Visit * Reason Onset Date Comments schedule an appt 08/29/2021 Encounter Details Date Type Department Care Team (Late st Contact Info) Description 08/29/2021 Telephone [facility] Scheduling Department [address] [place] [address] Telephone Intake, Staff schedule an appt Social [...] Pleas give PT a call back at [phone] Fabiola is hearing impaired she uses a [...] on filedocumented in this encounter Care Teams Traffic Circuit Engineer Relationship Specialty Start Date End Date Ronald Sofy [address] [place] [address] PCP - General 08/12/22 documented as of this encounter
--- OUTSIDE RECORDS SUMMARY | 2024-06-09 19:22 | XMS_ITS | Encounter Summary ---
Author Organization [facility] Address [address] [place] [address] Care Team Providers Care Foundry Technician Name Role Phone Kristy Brunson DO Primary Care Pro vider Unavailable [facility], Pcp Primary Care Provider Unavailabl e Encounter Details Date Type Department Care Team Description 08/29/2017 Night Triage Doc Medical Records [address] [place] [address] Abstract, Provider Social History Tobacco Use Types [...] on filedocumented in this encounter Care Teams Foundry Technician Relationship Specialty Start Date End Date Kristy Brunson DO PCP - General Internal Medicine 12/01/14 04/12/19 [facility], Pcp PCP - General Internal Medicine 04/13/19 documented as of this encounter
--- OUTSIDE RECORDS SUMMARY | 2024-06-09 19:22 | XMS_ITS | Clinical Summary ---
Author Organization [employer] Address [address] [place] [address] [address] [address] Care Team Providers Care Director Sales Support Name Role Phone Sofy Cardenas SECURITY ADVISOR Primary Care Provider [phone] Paul Yu SECURITY ADVISOR Unavailable Unavailable Allergies Active Allergy Reactions Criticality [...] and swelling). 30 g 05/26/19 25 Active nitrofurantoin, macrocrystal-monoh ydrate, (Macrobid) 100 MG capsuleIndications :UTI symptoms Take 1 capsule (100 mg) by mouth 2 times daily for 7 days. 14 capsule 06/10/19 25 025 Active Active Problems Problem Noted Date Diagnosed Date Vaginal discharge 06/09/2024 Assessment & Plan (06/09/2024 9:52 AM EST): BV/CG done patient will be contacted with results UTI symptoms 06/09/2024 Assessment & Plan (06/09/2024 9:52 AM EST): Drink plenty of water do not hold urine Irritant contact dermatitis due to other agents [...] Overview (11/24/2022): ?? Lap Cholecystectomy 11/07/22 at [facility] performed by Dr. Rodrigez ?? Indication: [...] and motivation PLAN: 1. Follow up with [facility]: Not recommended for follow-up 2. Patient goal [...] so patient will be referred to new [facility] Psychiatric prescriber. She is aware that appts will be via televisit and that provider will not be an [facility] employee. She gives permission to share PHI. [...] then she will be referred to new [facility] Psychiatric prescriber. Continue with therapist. She agrees [...] continue. Will start with new therapist at [facility]. F/U 2-3 months. She agrees with the [...] She will continue with her therapist at [facility]. F/U 6 weeks. She agrees with the [...] She will continue with her therapist at [facility] but does not want to consider transferring [...] She will continue with her therapist at [facility] but does not want to consider transferring [...] She will continue with her therapist at [facility] but does not want to consider transferring to psychiatric provider there. F/U 2 weeks. She agrees with the plan. PCOS (polycystic ovarian syndrome) 10/29/2021 Asthma 01/04/2021 Complex renal cyst 09/22/2020 Migraine without aura 07/31/2020 Focal nodular hyperplasia of liver 01/10/2015 Overview (04/18/2022): Wedge resection of liver 05/2012 Wedge resection of liver 05/2012 Arnold-Chiari malformation, type I 01/10/2015 Overview (04/18/2022): MRI 2008 MRI 2008 Seasonal allergies 01/05/2015 Hearing loss [...] Hyperemesis gravidarum 12/27/202108/15 Overview (04/18/2022): Admitted to [facility] 12/26 for IV hydration and IV zofran and phenergan Admitted to [facility] 12/26 for IV hydration and IV zofran [...] 08/15/2022 Major depressive disorder 01/04/2021 Overview (04/18/2022): [facility] Anxiety 01/04/2021 08/15/2022 Seizure 09/10/2020 08/15/2022 Urinary incontinence 07/31/2020 023 Pain in both hands 07/31/2020 Arthralgia of right ankle 07/31/2020 Posttraumatic stress disorder 01/05/2015 08/15/2022 Morbid obesity 12/21/2013 08/15/2022 Overview (04/18/2022): Obesity in (BMI >30) BMI at Intake Date Obesity plan of care discussed BMI > 50 (at 36 weeks or before) transfer to tertiary care (send TE to [facility]) * If BMI 40 or greater discuss [...] transfer to tertiary care (send TE to [facility]) * If BMI 40 or greater discuss [...] Encounters Date Type Department Care Team Description 06/09/2024 9:20 AM EST Office Visit [facility] [address] [place] [address] Laya Herring MD Vaginal discharge (Primary Dx); UTI symptoms 06/03/2024 Orders Only [facility] [address] [place] [address] Sofy Cardenas FNP Rupture of anterior cruciate ligament of left knee, initial encounter (Primary Dx) 06/01/2024 Telephone [facility] [address] [place] [address] Sofy Cardenas FNP telephone call 05/26/2024 3:00 PM EST Office Visit [facility] [address] [place] [address] Laya Herring MD Irritant contact dermatitis due to other agents (Primary Dx) 05/07/2024 Travel 04/30/2024 Telephone [facility] [address] [place] [address] Sofy CardenasHECTOR 04/21/2024 Orders Only [facility] [place] [address] Sofy CardenasHECTOR 04/14/2024 Orders Only GENERIC EXTERNAL DATA DEPARTMENT Provider, Generic External Data 03/23/2024 Telephone [facility] [place] [address] Sofy CardenasHECTOR Pre-op Notes 03/19/2024 1:30 PM EST Office Visit [facility] [place] [address] Sofy Cardenas SECURITY ADVISOR Rupture of anterior cruciate ligament of left [...] Mass Index 50.39 06/09/2024 9:08 AM EST Plan of Treatment Upcoming Encounters Date Type Department Care Team (Late st Contact Info) Description 06/25/2024 9:00 AM EDT Office Visit [facility] [address] [place] [address] [facility] [address] [place] [address] Health Maintenance Due Date Last Done Comments Lipid Panel 1993 Alcohol/Substance Use Screening 2005 Family Planning (PISQ) 2008 COVID-19 Vaccine ( season) 2023 11/19/2022, 11/21/2021, 08/17/2020, Additional history exists HPV/Cotest 12/07/2023 Influenza Vaccine (#1) 2023 4, 03/07/2014, 03/08/2013, Additional history exists Depression Screening 10/19/2024 10/20/2023, 10/20/19 24 SDOH Screening 03/19/2025 03/19/2024 Tobacco Screening 06/09/2025 06/09/2024 Cervical Cancer Screening 02/19/2026 Pap Smear 02/19/2026 [...] Routine 06/09/2024 10:06 AM EST Vaginal discharge XR KNEE 1-2 VIEWS LEFT Routine 06/07/2024 10:54 AM EST ECG 12-LEAD Routine 04/21/2024 8:56 AM EST [...] Recently Relevant to Health Maintenance Results * (ABNORMAL) POCT urinalysis dipstick manually [...] CARE TEST EN TER/EDIT ORDERABLES Final Result * XR Knee 1-2 Views Left (06/07/2024 10:54 AM EST) Anatomical Region Laterality Modality Lower Extremities, Knee Left Radiogra phic Imaging 06/07/2024 10:5 4 AM EST Narrative 06/08/2024 9:06 AM EST ? [facility] ? [address] ?[place] [address] ?XRay Report ? Signed ? Patient: Avery,Fabiola ?MR#: [id number] ?? [id number] ? : 1995 ?Acct:[id number] ? Age/Sex: 28 / F ?ADM Date: 03/03/25 ? Loc: HO.HOSX ? Attending Dr: Oneal Rod MD ? Ordering Physician: Oneal Rod MD ?? Date of Service: 06/07/24 ?? Procedure(s): XR knee LT 2V ?? Accession Number(s): [id number] ? cc: Oneal Rod MD; [facility] ? EXAMINATION: ?? XR KNEE, LEFT ? [...] DD/ 1054 ? TD/TT: 06/07/24 1100 ? Enrobing Machine Operator: ? Procedure Note Krunalbridgetjennidenis, Priscilla - 06/08/2024 [facility] [address] [place] [address] [address] [place] [address] XRay Report Signed Patient: Fabiola VarelaMR#: [id number] : 1995Acct:[id number] Age/Sex: 28 / FADM Date: 06/07/24 Loc: HO.HOSX Attending Dr: Oneal Rod MD Ordering Physician: Oneal Rod MD Date of Service: 06/07/24 Procedure(s): XR knee LT 2V Accession Number(s): [id number] cc: Oneal Rod MD; [facility] EXAMINATION: XR KNEE, LEFT CLINICAL INFORMATION: Z98.890 [...] by: Guille Emmanuel MD 06/08/2024 09:04 AM EST RP Dictated By: Guille Hdez MD Signed By: <Electronically signed by Guille Cole MDin OV> 06/08/24 0904 DD/ 1054 TD/TT: 06/07/24 1100 Enrobing Machine Operator: [facility] External Provider IMG XR PROCEDURES Final Result * ECG 12 lead (04/21/2024 8:56 AM EST) Narrative OmahaSofy FNP - 04/21/2024 8:56 AM EST NSR [facility] ECG ORDERABLES Final Result * HCG, Qualitative, Urine (04/14/2024 8:25 AM EST) Pathologist [facility] Urine NEGATIVE NEGATIVE [facility] Comment:This test was develo ped to detect early . Falsenegative results may occur after the 5th - 7th week ofpregnancy when using this test method. If clinicallyindicated, consider a serum hCG. 04/14/2024 8:25 AM EST 04/14/2024 8:30 AM EST Generic External Data Provider LAB URINE ORDERAB LES Final Result [facility] [address] [place] [phone] * (ABNORMAL) Basic Metabolic Panel (03/19/2024 2:26 PM EST) [facility] Sodium 138 135 - 145 mmol/L [facility] Potassium 4.2 3.3 - 5.1 mmol/L [facility] Chloride 105 96 - 108 mmol/L [facility] Carbon Dioxide 28 22 - 29 mmol/L [facility] Anion Gap 9(L) 12 - 20 [facility] Urea Nitrogen (BUN) 12 9 - 16 mg/dL [facility] Creatinine, Serum 1.00 0.5 - 1.4 mg/dL [facility] Estimated Glomerular Filt Rate >60 [facility] Comment:Chronic Kidney Disea se: Estimated GFR < 60 mL/min/1.53h0Mowrjg Kidney Disease: Estimated GFR < 15 mL/min/1.73m2 Glucose 81 60 - 115 mg/dL [facility] Calcium 9.9 8.4 - 10.2 mg/dL [facility] Blood Venous blood specimen / Unknown 03/19/2024 2:26 PM EST 03/19/2024 3:56 PM EST [facility] LAB BLOOD ORDERABLES Final Re sult [facility] [address] [place] [address] [phone] * (ABNORMAL) CBC auto differential (03/19/2024 2:24 PM EST) White Blood Count 9.5 4.8 - 10.8 X10*3/uL [facility] Red Blood Count 4.42 4.20 - 5.50 X10*6/uL [facility] Hemoglobin 14.2 12.0 - 16.0 g/dl [facility] Hematocrit 38.9 37.0 - 47.0 % [facility] Mean Corpuscular Volume 88.0 80.0 - 98.0 fL [facility] Mean Corpuscular Hemoglobin 32.1 27.0 - 33.0 pg [facility] Mean Corpuscular HGB Conc 36.5(H) 31.0 - 35.0 g/dl [facility] Red Cell Distribution Width 11.9 11.0 - 16.0 % [facility] Platelet Count 299 160 - 400 X10*3/uL [facility] Mean Platelet Volume 8.8(L) 9.4 - 12.3 fL [facility] Neutrophils Percent Auto 70.8 45 - 73 % [facility] Imm Gran Pct Auto 0.3 0.0 - 0.4 % [facility] Lymphocytes Percent Auto 21.0 20 - 40 % [facility] Monocytes Percent Auto 5.8 2 - 11 % [facility] Eosinophils Percent Auto 1.6 0 - 4 % [facility] Basophils Percent Auto 0.5 0 - 2 % [facility] NRBC Pct Auto 0.0 0.0 - 0.2 /100WBC [facility] Neutrophils Absolute Auto 6.7 2.0 - 8.3 x10*3/uL [facility] Imm Gran Abs Auto 0.03 0.00 - 0.03 X10*3/uL [facility] Lymphocytes Absolute Auto 2.0 1.2 - 4.9 X10*3/uL [facility] Monocytes Absolute Auto 0.6 0.1 - 1.2 X10*3/uL [facility] Eosinophils Absolute Auto 0.2 0.0 - 0.4 X10*3/uL [facility] Basophils Absolute Auto 0.1 0.0 - 0.2 X10*3/uL [facility] NRBC Abs Auto 0.000 0.0 - 0.012 X10*3/uL [facility] Blood Venous blood specimen / Unknown 03/19/2024 2:24 PM EST 03/19/2024 4:01 PM EST [facility] SECURITY ADVISOR LAB BLOOD ORDERABLES Final Re sult [facility] [address] [place] [phone] * Prothrombin Time-INR (03/19/2024 2:24 PM EST) Prothrombin Time 11.6 10.9 - 12.4 SEC [facility] INTERNATIONAL NORM RATIO 1.0 0.9 - 1.1 [facility] Comment:INTERNATIONAL NORMAL IZED RATIO (INR) [...] Hospital LAB BLOOD ORDERABLES Final Re sult [facility] [address] [place] [phone] * HIV-1/2 Antigen and Antibodies, Fourth Generation, with Reflexes (04/18/2023 12:05 PM EST) [facility] HIV AB/AG Nonreactive Nonreactive [facility] Comment:HIV-1 p24 Ag and/or HIV-1/HIV-2 Ab not detected.A test result that is nonreactive does not exclude thepossibility of exposure to or infection with HIV-1 and/orHIV-2. Nonreactive results in this assay for individualswith prior exposure to HIV-1 and/or HIV-2 may be due toantigen and antibody levels that are below the limit ofdetection of this assay.The [email or web address] HIV Ag/Ab Combo assay result andsupplemental assay results should be interpreted inconjunction with the patient's clinical presentation,history and other laboratory results. If the results areinconsistent with clinical evidence, additional testing issuggested to confirm the result. Blood Venous blood specimen / Unknown 04/18/2023 12:05 PM EST 04/18/2023 1:04 PM EST Laya Bundy MD LAB BLOOD ORDERABLES Final Result [facility] [address] [place] [address] [phone] * Pap Smear (02/19/2023 10:40 AM EST) 02/19/2023 10:4 0 AM EST 02/20/2023 10:45 AM EST Narrative [facility] - 03/11/2023 7:55 AM EST ----- ------- Name: Fabiola Varela ? Age/Sex: 27/F ? : 1995 Unit#: [id number] ?? Attend Dr: Sofy Cardenas ?Re02/19/23 ?Status: DEP REF ? Location: HO.HHCLNP ? Disch: ? ----- ------- SPEC : [id number] ?RECD: 02/20/23-1044 ? STATUS: ??SOUT ? REQ NUM: [id number] ? SERGO: 02/19/230 ? SUBM DR: Sofy Cardenas ? ENTERED: ??02/21/23 ?SP TYPE: Pap Smr ?OTHR : ? ORDERED: ??Pap Smear ? Interpretation ?? Satisfactory for evaluation. ?? No endocervical cells seen. ?? Blood. ?? Mild inflammation. ?? Negative for intraepithelial lesion or malignancy. ?Clinical Information LMP: Unknown date Previous PAP test: Unknown date/findings ? Material Received ?? ThinPrep-Cervical ----- ------- Signed (signature on file) J CARLOS Pena (ASCP) 03/11/23 0755 ? ----- ------- ? END OF REPORT ? [facility] SECURITY ADVISOR LAB CYTOLOGY ORDERABLES Final Result Performing Organization Address [facility] de Phone Number [facility] [address] [place] [address] [phone] * Hepatitis C Ab (06/28/2022 2:05 PM EDT) Hepatitis C Antibody Nonreactive Nonreactive [facility] Comment:Antibodies to HCV no t detected; does not exclude early acuteHCV infection. 06/28/2022 2:05 PM EDT 06/28/2022 2:05 PM EDT [facility] External Provider LAB BLO OD ORDERABLES Final Result Performing Organization Address [facility] Co de Phone Number [facility] [address] [place] [address] [phone] from Last 3 Months or Most Recently Relevant to Health Maintenance Insurance [facility] [address] [place], [place] [address]HEALTH C3 C3 Care Teams Director Sales Support Relationship Specialty Start Date End Date Sofy Cardenas FNP [address] [place] [address] PCP - General Family Medicine 11/30/21 Paul Yu FNP [address] [place] [address] Nurse Practitioner Family Medicine 02/26/23
--- OUTSIDE RECORDS SUMMARY | 2024-06-09 19:22 | XMS_ITS | Referral Summary ---
Author Organization [facility] Address [address] [place] [address] Care Team Providers Care Head Of Measurement & Insights Name Role Phone [facility] Primary Care Provider [phone] Allergies Active Allergy Reactions Criticality Noted Date [...] both ears 12/24/2021 Miscarriage 12/24/2021 Overview (04/12/2022): AURDEY MONTERROSO OB-CMI score: 4 [12/24/2021] Group PN [...] answered. Miscarried on 12/28/21 Was seen at [facility]. US report in media This is [...] Plan of Treatment Not on file [facility] Teams Head Of Measurement & Insights Relationship Specialty Start Date End Date [facility] [address] [place] [phone] PCP - General 08/12/22
--- OUTSIDE RECORDS SUMMARY | 2024-06-09 19:22 | XMS_ITS | Encounter Summary ---
Author Organization [facility] Address [address] [place] [address] Care Team Providers Care Diesel Engineer Name Role Phone Kristy Brunson DO Primary Care Pro vider Unavailable [facility], Pcp Primary Care Provider Unavailabl e Encounter Details Date Type Department Care Team Description 12/12/2016 Billet Assembler Report Medical Records [address] [place] [phone] Silvio Escamilla MD Social History Tobacco Use [...] on filedocumented in this encounter Care Teams Diesel Engineer Relationship Specialty Start Date End Date Kristy Brunson DO PCP - General Internal Medicine 12/01/14 04/12/19 [facility], Pcp PCP - General Internal Medicine 04/13/19 documented as of this encounter
--- OUTSIDE RECORDS SUMMARY | 2024-06-09 19:22 | XMS_ITS | Encounter Summary ---
Author Organization [facility] Address [address] [place] [address] Phone Care Team Providers Care Turf Farm Worker Name Role Phone Ari Latham MD Primary Care Provider [phone] Encounter Details Date Type Department Care Team (Late st Contact Info) Description 03/20/2011 Documentation [facility] Family Medicine [address] [place] [address] Family Medicine, Physician [address] [place] [phone] Social History Tobacco Use Types Packs/Day Years [...] on filedocumented in this encounter Care Teams Turf Farm Worker Relationship Specialty Start Date End Date Ari Latham MD [address] [place] [address] PCP - General 11/15/16 07/07/22 documented as of this encounter
--- OUTSIDE RECORDS SUMMARY | 2024-06-09 19:22 | XMS_ITS | Encounter Summary ---
Author Organization [facility] Address [address] [place] [address] Phone Care Team Providers Care Market Asset Protection Manager Name Role Phone Ari Latham MD Primary Care Provider [phone] Encounter Details Date Type Department Care Team (Late st Contact Info) Description 09/05/2009 Documentation [facility] Family Medicine [address] [place] [address] Family Medicine, Physician [address] [place] [phone] Social History Tobacco Use Types Packs/Day Years [...] on filedocumented in this encounter Care Teams Market Asset Protection Manager Relationship Specialty Start Date End Date Ari Latham MD [address] [place] [address] PCP - General 11/15/16 07/07/22 documented as of this encounter
--- OUTSIDE RECORDS SUMMARY | 2024-06-09 19:22 | XMS_ITS | Encounter Summary ---
Author Organization [employer] Address [address] [place] [address] Care Team Providers Care Repairer Maintenance Building Name Role Phone [facility] Primary Care Provider [phone] Paul Yu INTERIOR DECORATOR PAINTING Unavailable Unavailable Reason for Visit * Reason Onset Date Comments Results 06/07/2022 Encounter Details Date Type Department Care Team ([facility] st Contact Info) Description 06/07/2022 Telephone [facility] [address] [place] [address] [facility] [address] [place] [address] Results Social History Tobacco Use Types Packs/Day [...] 05/29/2022. Please contact pt with results at [phone] documented in this encounter Plan of Treatment Upcoming Encounters Date Type Department Care Team (Late st Contact Info) Description 06/25/2024 9:00 AM EDT Office Visit [facility] [address] [place] [address] [place] [facility] [address] [place] [address] documented as of this encounter Visit Diagnoses Not on filedocumented in this encounter Additional Health Concerns Assessment Noted Time PHQ-9 Depression Total Score: 3 05/23/19 23 11:16 AM EST documented as of this encounter Care Teams Repairer Maintenance Building Relationship Specialty Start Date End Date Sofy Cardenas FNP [address] [place] [address] PCP - General Family Medicine 11/30/21 Paul Yu FNP [address] [place] [address] Nurse Practitioner Family Medicine 02/26/23 documented as of this encounter
--- OUTSIDE RECORDS SUMMARY | 2024-06-09 19:22 | XMS_ITS | Encounter Summary ---
Author Organization [facility] Address [address] [place] [phone] Phone Care Team Providers Care Test Development Engineer Name Role Phone Ari Latham MD Primary Care Provider [phone] Encounter Details Date Type Department Care Team (Late st Contact Info) Description 03/06/2010 Documentation [facility] [place] Medicine [address] [place] [address] Family Medicine, Physician [address] [phone] Social History Tobacco Use Types Packs/Day Years [...] on filedocumented in this encounter Care Teams Test Development Engineer Relationship Specialty Start Date End Date Ari Latham MD [address] [place] [address] PCP - General 11/15/16 07/07/22 documented as of this encounter
--- OUTSIDE RECORDS SUMMARY | 2024-06-09 19:22 | XMS_ITS | Encounter Summary ---
Author Organization [employer] Address [address] [place] [address] Care Team Providers Care Oracle Etl Developer Name Role Phone [facility] Primary Care Provider [phone] Paul Yu Unavailable Unavailable Reason for Visit * Reason Onset Date Comments telephone call 06/01/2024 Encounter Details Date Type Department Care Team ([facility] st Contact Info) Description 06/01/2024 Telephone [facility] [address] [place] [address] [facility] [address] [place] [address] telephone call Social History Tobacco Use Types [...] [facility] and they are requesting a referral for here. documented in this encounter Plan of Treatment Upcoming Encounters Date Type Department Care Team (Late st Contact Info) Description 06/25/2024 9:00 AM EDT Office Visit [facility] [address] [place] [address] Sofy Cardenas FNP [address] [place] [address] documented as of this encounter Visit Diagnoses Not on filedocumented in this encounter Additional Health Concerns Assessment Noted Time PHQ-9 Depression Total Score: 0 10/20/19 24 11:19 AM EDT documented as of this encounter Care Teams Oracle Etl Developer Relationship Specialty Start Date End Date Sofy Cardenas FNP [address] [place] [address] PCP - General Family Medicine 11/30/21 Paul Yu FNP [address] [place] [address] Nurse Practitioner Family Medicine 02/26/23 documented as of this encounter
--- OUTSIDE RECORDS SUMMARY | 2024-06-09 19:22 | XMS_ITS | Encounter Summary ---
Author Organization [facility] Address [address] [place] [address] Care Team Providers Care Consulting Psychologist Name Role Phone Unavailable Primary Care Provider Unavailabl e Reason for Visit * Reason Comments Follow Up Encounter Details Date Type Department Care Team (Latest Contact Info) Description 06/03/2024 2:00 PM EST Behavioral Health Visit [facility] [address] [place] [phone] Chanell Farrell APRN [address] [place] [address] Posttraumatic stress disorder (Primary Dx); Anxiety; Episodic mood disorder (HCC-CMS); Attention deficit [...] as of this encounter Progress Notes * Chanell Farrell APRN - 06/09/2024 1:10 PM ESTAssociated Problem(s): Attention deficit hyperactivity disorder (ADHD) A: Concentration problem P: continue Strattera 25 mg PO BID, effective with concentration issues * Chanell Farrell APRN - 06/09/2024 1:10 PM ESTAssociated Problem(s): Episodic mood disorder (HCC-CMS) A: reports a stable mood , denies sammi and depressive symptoms. P: Continue Latuda Transfer to PCP chart will be attached * Chanell Farrell APRN - 06/09/2024 1:10 PM ESTAssociated Problem(s): Posttraumatic stress disorder No active complains or symptoms, continue to monitor * Chanell Farrell APRN - 06/03/2024 2:39 PM EST [facility] OFFICE VISIT Name: Fabiola Varela : 1995 PCP: No primary care provider on file. ASSESSMENT AND PLAN Problem List Items Addressed This Visit BH/MH Problems Attention deficit hyperactivity disorder (ADHD) A: Concentration problem P: continue Strattera 25 mg PO BID, effective with concentration issues Relevant Medications atomoxetine (STRATTERA) 25 mg capsule Episodic mood disorder (HCC-CMS) A: reports a stable mood , denies sammi and depressive symptoms. P: Continue Latuda Transfer to PCP chart will be attached Relevant Medications lurasidone 60 mg tab Posttraumatic stress disorder - Primary No active complains or symptoms, continue to monitor Anxiety Relevant Medications DULoxetine 40 mg cpDR Follow-up: Return in about 3 months (around 08/31/2024). Chanell Farrell APRN 06/03/2024 2:39 PM EST REASON FOR VISIT Chief Complaint Patient presents with Follow Up HPI/ROS Patient seen on Telehealth for follow-up, she is stressed because she is moving out, reports that she is moving to her Neighbors house until she can find a detention. Patient reports that former landlord decided to sell her house leaving her and her parent homeless. Patient reports that aside from current stressors she is relatively doing well. Psychosocial: unstable using Affective/Bx Symptoms: Normal Sleep: sometimes disrupted due to pain. Appetite: good Substances: Denies except Cannabis daily. Safety: Denies SI/HI Perception: unremarkable Medical: S/P ACL reconstruction PHQ No data to display Review of Systems All other systems reviewed and are negative. VITALS: There were no vitals filed for this visit. Physical Exam Neurological: Mental Status: She is alert and oriented to person, place, and time. Psychiatric: Attention and Perception: Attention and perception normal. Mood and Affect: Mood normal. Speech: Speech normal. Behavior: Behavior normal. Behavior is cooperative. Thought Content: Thought content normal. Cognition and Memory: Cognition normal. Judgment: Judgment normal. Visit conducted via Telehealth with audio only.. Telehealth Provided Other than in Patient's Home. TELEMEDICINE ATTESTATION I verified the patient by the patients name, date of and insurance ID. I disclosed my identity and credentials. I reviewed, as appropriate, relevant history and medical records with the patient. I determined that I could provide the same standard of care and if I determined I could not do that during the telemedicine visit, I directed the patient to seek in person care. I discussed confidentiality rights with the patient. I disclosed my location and discussed the patient location. I discussed how the patient can see a clinician in-person in the event of an emergency or as otherwise needed. . Chanell Farrell APRN 06/03/2024 documented in this encounter Plan of Treatment Upcoming Encounters Date Type Department Care Team ([facility] Contact Info) Description 08/26/2024 1:00 PM EDT Behavioral Health Visit [facility] [address] [place] [phone] Cahnell Farrell APRN [address] [place] [address] documented as of this encounter Visit Diagnoses Diagnosis Posttraumatic stress disorder- Primary Anxiety Anxiety state, unspecified Episodic mood disorder (HCC-CMS) Unspecified episodic mood disorder Attention deficit hyperactivity disorder (ADHD), unspecified ADHD type documented in this encounter
--- OUTSIDE RECORDS SUMMARY | 2024-06-09 19:22 | XMS_ITS | Encounter Summary ---
Author Organization [facility] Address [address] [place] [address] Phone Care Team Providers Care Double End Sewer Name Role Phone Ari Latham MD Primary Care Provider [phone] Encounter Details Date Type Department Care Team (Late st Contact Info) Description 02/24/2014 Documentation [facility] Family Medicine [address] [place] [address] Family Medicine, Physician [address] [place], [place] [address] Social History Tobacco Use Types Packs/Day Years [...] on filedocumented in this encounter Care Teams Double End Sewer Relationship Specialty Start Date End Date Ari Latham MD [address] [place] [address] PCP - General 11/15/16 07/07/22 documented as of this encounter
--- OUTSIDE RECORDS SUMMARY | 2024-06-09 19:22 | XMS_ITS | Encounter Summary ---
Author Organization [facility] Address [address] [place] [address] Care Team Providers Care Journeyman Tool And Die Maker Name Role Phone Kristy Brunson DO Primary Care Pro vider Unavailable Community, Pcp Primary Care Provider Unavailabl e Encounter Details Date Type Department Care Team Description 12/16/2014 Orders Only Adult Medicine [facility] [address] [place] [address] Kristy Brunson DO Hyperthyroidism (Primary Dx) Social History Tobacco Use Types Packs/Day Years Used Date Smoking Tobacco: Light Smoker Alcohol Use Standard Drinks/Week Comments Not Asked 0 (1 standard drink = 0.6 oz pur e alcohol) Sex Assigned at Date Recorded Not on file documented as of this encounter Plan of Treatment Not on file documented as of this encounter Results * (ABNORMAL) THYROID PROFILE W/TSH (12/16/2014 12:31 PM EDT) TSH CASCADE 0.02(L) 0.40 - 4.00 uIU/ml 12/16/2014 2:21 PM EDT [facility] 12/16/2014 12:3 1 PM EDT 12/16/2014 12:32 PM EDT Kristy Leblanc DO LAB [facility] [address] [facility] documented in this encounter Visit Diagnoses Diagnosis Hyperthyroidism- Primary Thyrotoxicosis without mention of goiter or other cause, without mention of thyrotoxic crisis or storm documented in this encounter Care Teams Journeyman Tool And Die Maker Relationship Specialty Start Date End Date Kristy Brunson DO PCP - General Internal Medicine 12/01/14 04/12/19 [facility], Pcp PCP - General Internal Medicine 04/13/19 documented as of this encounter
--- OUTSIDE RECORDS SUMMARY | 2024-06-09 19:22 | XMS_ITS | Encounter Summary ---
Author Organization [employer] Address [address] [place] [address] [place] [address] Care Team Providers Care Public Health Analyst Name Role Phone [facility] Primary Care Provider [phone] Paul Yu Unavailable Unavailable Reason for Visit * Reason Onset Date Comments triage 07/05/2022 Encounter Details Date Type Department Care Team (Late st Contact Info) Description 07/05/2022 Telephone [facility] [address] [place] [address] [facility] [address] [place] [address] triage Social History Tobacco Use Types Packs/Day [...] Description 06/25/2024 9:00 AM EDT Office Visit [facility] [address] [place] [address] Sofy Cardenas FNP [address] [place] [address] documented as of this encounter Visit Diagnoses Not on filedocumented in this encounter Additional Health Concerns Assessment Noted Time PHQ-9 Depression Total Score: 5 07/05/19 23 9:22 AM EDT documented as of this encounter Care Teams Public Health Analyst Relationship Specialty Start Date End Date Sofy Cardenas FNP [address] [place] [address] PCP - General Family Medicine 11/30/21 Paul Yu FNP [address] [place] [address] Nurse Practitioner Family Medicine 02/26/23 documented as of this encounter
--- OUTSIDE RECORDS SUMMARY | 2024-06-09 19:22 | XMS_ITS | Encounter Summary ---
Author Organization [facility] Address [address] [place] [address] Phone Care Team Providers Care Packer Dried Beef Name Role Phone Ari Latham MD Primary Care Provider Encounter Details Date Type Department Care Team (Late st Contact Info) Description 11/21/2016 Conversion Encounter [facility] [address] [place] [address] Social History Tobacco Use Types Packs/Day Years [...] on filedocumented in this encounter Care Teams Packer Dried Beef Relationship Specialty Start Date End Date Ari Latham MD [address] [place] [address] PCP - General 11/15/16 07/07/22 documented as of this encounter
--- OUTSIDE RECORDS SUMMARY | 2024-06-09 19:22 | XMS_ITS | Encounter Summary ---
Author Organization [facility] Address [address] [place] [address] Care Team Providers Care Used Car Sales Manager Name Role Phone Kristy Brunson DO Primary Care Pro vider Unavailable Community, Pcp Primary Care Provider Unavailabl e Encounter Details Date Type Department Care Team Description 08/24/2017 Night Triage Doc Medical Records [address] [place] [address] Abstract, Provider Social History Tobacco Use Types [...] on filedocumented in this encounter Care Teams Used Car Sales Manager Relationship Specialty Start Date End Date Kristy Brunson DO PCP - General Internal Medicine 12/01/14 04/12/19 Community, Pcp PCP - General Internal Medicine 04/13/19 documented as of this encounter
--- OUTSIDE RECORDS SUMMARY | 2024-06-09 19:22 | XMS_ITS | Encounter Summary ---
Author Organization [employer] [facility] Address [address] [place] [address] Care Team Providers Care Electrical Assembly Supervisor Name Role Phone [facility] Primary Care Provider [phone] Paul Yu Unavailable Unavailable Reason for Visit * Reason Onset Date Comments pt1 06/26/2022 PT1 07/09/2022 Encounter Details Date Type Department Care Team (Late st Contact Info) Description 06/26/2022 Telephone [facility] [address] [place] [address] Valders [facility] [address] [place], [place] [phone] pt1; PT1 Social History Tobacco Use Types [...] / denial letter via mail. PT-1 Request [id number] Pending. [facility] [address] [facility] * Telephone Encounter - Ade Corrales - 07/09/2022 8:51 AM EDT Tc from patient re calling in regards to message below. Patient has a surgery on 07/15/22. * Telephone Encounter - Adam Ramos - 06/26/2022 9:25 AM EDT Tc from pt requesting to renew pt1 Location:[address] [place] [address] Specialty: surgery Time: 6 am Date: July 15 2022 Human Resources Partner: yes wheelchair accessible : no Location::[address] [place] [address] Specialty: post op Time: na Date:na Human Resources Partner: yes wheelchair accessible :na documented in this encounter Plan of Treatment Upcoming Encounters Date Type Department Care Team (Late st Contact Info) Description 06/25/2024 9:00 AM EDT Office Visit [facility] [address] [place] [address] Sofy Cardenas FNP [address] [place] [address] documented as of this encounter Visit Diagnoses Not on filedocumented in this encounter Additional Health Concerns Assessment Noted Time PHQ-9 Depression Total Score: 3 05/23/19 23 11:16 AM EST documented as of this encounter Care Teams Electrical Assembly Supervisor Relationship Specialty Start Date End Date Sofy Cardenas FNP [address] [place] [address] PCP - General Family Medicine 11/30/21 Paul Yu FNP [address] [place] [address] Nurse Practitioner Family Medicine 02/26/23 documented as of this encounter
--- OUTSIDE RECORDS SUMMARY | 2024-06-09 19:22 | XMS_ITS | Clinical Summary ---
Author Organization [facility] Address [address] [place] [address] Care Team Providers Care Candy Rolling Machine Operator Name Role Phone [facility] Primary Care Provider [phone] Allergies Active Allergy Reactions Criticality Noted Date [...] answered. Miscarried on 12/28/21 Was seen at [facility]. [place] report in media This is her [...] patient's age to complete this topic Insurance [employer] Care Teams Candy Rolling Machine Operator Relationship Specialty Start Date End Date [facility] [address] [place] [address] PCP - General 08/12/22
--- OUTSIDE RECORDS SUMMARY | 2024-06-09 19:22 | XMS_ITS | Clinical Summary ---
Author Organization [facility] Address [address] [place] [address] Care Team Providers Care City Wellness Coordinator Name Role Phone Unavailable Primary Care Provider [...] lurasidone 60 mg tabIndications:Ep isodic mood disorder ([facility]) Take 1 Tablet by mouth daily for [...] lurasidone 60 mg tabIndications:Ep isodic mood disorder ([facility]) Take 1 Tablet by mouth daily. for [...] Overview (11/27/2023): ?? Lap Ch[place]07[place] [facility] [place]. Rodrigez ?? [...] FU in 1 week. Episodic mood disorder ([facility]) 05/09/2022 Overview (03/11/2024): Patient has been doing [...] She will continue with her therapist at [facility]. F/U 6 weeks. She agrees with the plan. Assessment & Plan (06/09/2024 1:10 PM EST): A: reports a stable mood , denies sammi and depressive symptoms. 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/10/2015 Overview (11/27/2023): Wedge resection of liver 05/2012 Wedge resection of liver 05/2012 Wedge resection of liver 05/2012 Wedge resection of liver 05/2012 Posttraumatic stress disorder 01/05/2015 Assessment & Plan (06/09/2024 1:10 PM EST): No active complains or symptoms, continue to monitor Assessment & Plan (03/11/2024 6:12 PM EST): No active complains or symptoms, continue to monitor Assessment & Plan (11/27/2023 12:36 PM EDT): No active complains or symptoms, continue to monitor Seasonal allergies 01/05/2015 Morbid obesity ([facility]) 12/21/2013 Attention deficit hyperactivity disorder (ADHD) 06/15/2011 Overview (11/27/2023): Last Assessment & Plan: Continue Strattera 25 mg BID. Assessment & Plan (06/09/2024 1:10 PM EST): A: Concentration problem P: continue Strattera 25 mg PO BID, effective with concentration issues Assessment & Plan (03/11/2024 6:12 PM EST): [...] EST Behavioral Health Visit [facility] [address] [place] [phone] Chanell Farrell APRN Posttraumatic stress disorder (Primary Dx); Anxiety; Episodic mood disorder (HCC-CMS); Attention deficit hyperactivity disorder (ADHD), unspecified ADHD type 03/11/2024 12:30 PM EST Behavioral Health Visit [facility] [address] [place] [address] Chanell Farrell APRN Posttraumatic stress disorder (Primary [...] Care Team (Late st Contact Info) Description 08/26/2024 1:00 PM EDT Behavioral Health Visit [facility] [address] [place] [phone] Chanell Farrell, SIZE MIXER [address] [facility] [place] [address] Health Maintenance Due Date Last Done Comments HPV Screening 1993 Hepatitis C Screening 1993 Lipid Screening 1993 Pap + HPV 1993 Relationship Safety Screening/Counseling 2008 Hypertension Screening (#1) 12/07/2011 Cervical Cancer Screening 2014 Pap Smear 2014 Diabetes Screening 06/29/2023 06/28/2022, 1 04/28/2020, 01/04/2021, Additional history exists [id number] ( season) 2023 11/19/2022, 11/21/2021, 08/17/2020, Additional [...] Discontinued Vaginal Pap Discontinued Vulvoscopy Discontinued Insurance [place] MEDICA[place] [facility]
--- OUTSIDE RECORDS SUMMARY | 2024-06-09 19:22 | XMS_ITS | Encounter Summary ---
Author Organization [facility] Address [address] [facility] 7 [place] [address] Care Team Providers Care Pedodontist Name Role Phone [place] [facility] Primary Care Provider [phone] Paul Yu Unavailable Unavailable Encounter Details Date Type Department Care Team ([facility] st Contact Info) Description 02/12/2023 Telephone [facility] [address] [place] [address] [place] [facility] [address] [place] [address] Social History Tobacco Use Types Packs/Day Years [...] Description 06/25/2024 9:00 AM EDT Office Visit [facility] [address] [place] [address] Sofy Cardenas FNP [address] [place] [address] documented as of this encounter Visit Diagnoses Not on filedocumented in this encounter Additional Health Concerns Assessment Noted Time PHQ-9 Depression Total Score: 1 12/17/19 23 1:45 PM EDT documented as of this encounter Care Teams Pedodontist Relationship Specialty Start Date End Date Sofy Cardenas FNP [address] [place] [address] PCP - General Family Medicine 11/30/21 Paul Yu FNP [address] [place] [address] Nurse Practitioner Family Medicine 02/26/23 documented as of this encounter
--- OUTSIDE RECORDS SUMMARY | 2024-06-09 19:22 | XMS_ITS | Encounter Summary ---
Author Organization [employer] Address [address] [place] [address] Care Team Providers Care Scorekeeper Name Role Phone [facility] Primary Care Provider Paul Yu Unavailable Unavailable Reason for Visit * Reason Onset Date Comments Nurse Triage 04/15/2023 Encounter Details Date Type Department Care Team (Late st Contact Info) Description 04/15/2023 Telephone [facility] [address] [place] [address] [facility] [address] [place] [address] Nurse Triage Social History Tobacco Use Types [...] accepted this outcome Please contact pt at [phone] documented in this encounter Plan of Treatment Upcoming Encounters Date Type Department Care Team (Late st Contact Info) Description 06/25/2024 9:00 AM EDT Office Visit [facility] [address] [place] [address] Sofy Cardenas FNP [address] [place] [address] documented as of this encounter Visit Diagnoses Not on filedocumented in this encounter Additional Health Concerns Assessment Noted Time PHQ-9 Depression Total Score: 6 03/06/20 23 2:58 PM EST documented as of this encounter Care Teams Scorekeeper Relationship Specialty Start Date End Date Sofy Cardenas FNP [address] [place] [address] PCP - General Family Medicine 11/30/21 Paul Yu FNP [address] [place] [address] Nurse Practitioner Family Medicine 02/26/23 documented as of this encounter
--- OUTSIDE RECORDS SUMMARY | 2024-06-09 19:22 | XMS_ITS | Encounter Summary ---
Author Organization [facility] Address [address] [place] [address] Care Team Providers Care Human Resources Administrator Name Role Phone Kristy Brunson DO Primary Care Pro vider Unavailable Community, Pcp Primary Care Provider Unavailabl e Encounter Details Date Type Department Care Team Description 07/02/2017 Night Triage Doc Medical Records [address] [place] [address] Abstract, Provider Social History Tobacco Use Types [...] on filedocumented in this encounter Care Teams Human Resources Administrator Relationship Specialty Start Date End Date Kristy Brunson DO PCP - General Internal Medicine 12/01/14 04/12/19 Community, Pcp PCP - General Internal Medicine 04/13/19 documented as of this encounter
--- OUTSIDE RECORDS SUMMARY | 2024-06-09 19:22 | XMS_ITS | Encounter Summary ---
Author Organization [employer] Address [address] [place] [address] Care Team Providers Care Meat Stuffer Name Role Phone [place] [facility] Primary Care Provider [phone] Paul Yu Unavailable Unavailable Reason for Visit * Reason Onset Date Comments Appointment Request 11/08/2022 Encounter Details Date Type Department Care Team (Late st Contact Info) Description 11/08/2022 Telephone [facility] [address] [place] [address] [facility] [address] [place] [address] Appointment Request Social History Tobacco Use Types [...] and understood,. Advised to give call to [facility] if any questions or concerns. * Telephone Encounter - Ade Corrales - 11/08/2022 1:58 PM EDT Tc from patient requesting a f/u appt, due to getting her gall bladder removed on 11/07/22 at [facility]. documented in this encounter Plan of Treatment Upcoming Encounters Date Type Department Care Team (Late st Contact Info) Description 06/25/2024 9:00 AM EDT Office Visit [facility] [address] [place] [address] Sofy Cardenas FNP [address] [place] [address] documented as of this encounter Visit Diagnoses Not on filedocumented in this encounter Additional Health Concerns Assessment Noted Time PHQ-9 Depression Total Score: 3 09/27/19 9:18 AM EDT documented as of this encounter Care Teams Meat Stuffer Relationship Specialty Start Date End Date Sofy Cardenas FNP [address] [place] [address] PCP - General Family Medicine 11/30/21 Paul Yu FNP [address] [place] [address] Nurse Practitioner Family Medicine 02/26/23 documented as of this encounter
--- OUTSIDE RECORDS SUMMARY | 2024-06-09 19:22 | XMS_ITS | Encounter Summary ---
Author Organization [facility] Address [address] [place] [address] Care Team Providers Care Color Grinder Name Role Phone [place] Sof[facility] Primary Care Provider [phone] Paul Yu Unavailable Unavailable Reason for Visit * Reason Comments Med Refill Encounter Details Date Type Department Care Team (Late Contact Info) Description 12/11/2022 Refill [facility] [address] [place] [address] Yaima Shah FNP [address] [place] [address] Social History Tobacco Use Types Packs/Day Years [...] Description 06/25/2024 9:00 AM EDT Office Visit [facility] [address] [place] [address] [facility] [address] [place] [address] documented as of this encounter Visit Diagnoses Not on filedocumented in this encounter Additional Health Concerns Assessment Noted Time PHQ-9 Depression Total Score: 3 09/27/19 23 9:18 AM EDT documented as of this encounter Care Teams Color Grinder Relationship Specialty Start Date End Date Sofy Cardenas FNP [address] [place] [address] PCP - General Family Medicine 11/30/21 Paul Yu FNP [address] [place] [address] Nurse Practitioner Family Medicine 02/26/23 documented as of this encounter
--- OUTSIDE RECORDS SUMMARY | 2024-06-09 19:22 | XMS_ITS | Encounter Summary ---
Author Organization [facility] Address [address] [place] [address] Care Team Providers Care Decal Decorator Name Role Phone Kristy Brunson DO Primary Care Pro vider Unavailable Community, Pcp Primary Care Provider Unavailabl e Encounter Details Date Type Department Care Team Description 09/11/2017 Night Triage Doc Medical Records [address] [place] [address] Abstract, Provider Social History Tobacco Use Types [...] on filedocumented in this encounter Care Teams Decal Decorator Relationship Specialty Start Date End Date Kristy Brunson DO PCP - General Internal Medicine 12/01/14 04/12/19 Community, Pcp PCP - General Internal Medicine 04/13/19 documented as of this encounter
--- OUTSIDE RECORDS SUMMARY | 2024-06-09 19:22 | XMS_ITS | Encounter Summary ---
Author Organization [facility] Address [address] [place] [address] Care Team Providers Care Casting Machine Control Board Operator Name Role Phone Community, Pcp Primary Care Provider Kristy Berg DO Primary Care Pro vider Unavailable Community, Pcp Primary Care Provider Edgar e Encounter Details Date Type Department Care Team Description 05/23/2012 Hospital Medical Records [address] [place] [address] Kale Self MD Social History Tobacco Use Types Packs/Day [...] on filedocumented in this encounter Care Teams Casting Machine Control Board Operator Relationship Specialty Start Date End Date Community, Pcp PCP - General Internal Medicine 11/14/14 11/30/14 Kristy Brunson DO PCP - General Internal Medicine 12/01/14 04/12/19 Community, Pcp PCP - General Internal Medicine 04/13/19 documented as of this encounter
--- OUTSIDE RECORDS SUMMARY | 2024-06-09 19:23 | XMS_ITS | Encounter Summary ---
Author Organization [facility] Address [address] [place] [address] Phone Care Team Providers Care Cell Phone Repair Technician Name Role Phone Ari Latham MD Primary Care Provider [phone] Encounter Details Date Type Department Care Team (Late st Contact Info) Description 08/09/2013 Documentation [facility] [place] [address] [place] [address] Family Medicine, Physician [address] [place] [phone] Social History Tobacco Use Types Packs/Day Years [...] on filedocumented in this encounter Care Teams Cell Phone Repair Technician Relationship Specialty Start Date End Date Ari Latham MD [address] [place] [address] PCP - General 11/15/16 07/07/22 documented as of this encounter
--- OUTSIDE RECORDS SUMMARY | 2024-06-09 19:23 | XMS_ITS | Encounter Summary ---
Author Organization [facility] Address [address] [place] [address] Phone Care Team Providers Care Artificial Flowers Starcher Name Role Phone Ari Latham MD Primary Care Provider [phone] Encounter Details Date Type Department Care Team (Late st Contact Info) Description 09/02/2013 Documentation [facility] [place] [address] [place] [address] Family Medicine, Physician [address] [place], [place] [phone] Social History Tobacco Use Types Packs/Day Years [...] on filedocumented in this encounter Care Teams Artificial Flowers Starcher Relationship Specialty Start Date End Date Ari Latham MD [address] [place] [address] PCP - General 11/15/16 07/07/22 documented as of this encounter
--- OUTSIDE RECORDS SUMMARY | 2024-06-09 19:23 | XMS_ITS | Encounter Summary ---
Author Organization [facility] Address [address] [place] [address] Phone Care Team Providers Care Children'S Counselor Name Role Phone Ari Latham MD Primary Care Provider Encounter Details Date Type Department Care Team (Late st Contact Info) Description 09/10/2013 Documentation [facility] [place] Family Medicine [address] [place] [address] Family Medicine, Physician [address] [place], [place] [phone] Social History Tobacco Use Types Packs/Day Years [...] on filedocumented in this encounter Care Teams Children'S Counselor Relationship Specialty Start Date End Date Ari Latham MD [address] [place] [address] PCP - General 11/15/16 07/07/22 documented as of this encounter
[2024-06-10 13:46] LABS: CT PCR NOT DETECTED (Not Detect.); NG PCR NOT DETECTED (Not Detect.)
[2024-06-10 17:20] LABS: Bacterial Vaginosis PCR POSITIVE (Negative); Candida Group PCR NOT DETECTED (Not Detect); Candida glab krusei PCR NOT DETECTED (Not Detect); Trichomonas vaginalis PCR NOT DETECTED (Not Detect)
== END 2024-06-09 16:31 | disposition home or self-care (01) ==
LOC: HO.HHCLNP 16:30
PROVIDERS: Visit Provider Internal Medicine
DX: N89.8 Other specified noninflammatory disorders of vagina (principal)
CPT/HCPCS: 81515; 87086; 87147; 87491; 87591

== ENCOUNTER 2024-06-16 13:39 | Outpatient (RCR) | payer MEDICAID, SELFPAY | END 2024-09-08 09:03 | disposition home or self-care (01) | LOC: HO.PT 13:39 | PROVIDERS: PCP Registered Nurse; Visit Provider Physician Assistant | DX: S83.512D Sprain of anterior cruciate ligament of left knee, subsequent encounter (principal); Z98.890 Other specified postprocedural states | CPT/HCPCS: 97110; 97140; 97161; 97530 ==

== ENCOUNTER 2024-06-25 09:25 | Outpatient (REF) | payer MEDICAID, SELFPAY ==
[2024-06-25 11:11] LABS: MANUAL DIFF FLAG NO
[2024-06-25 11:35] LABS: Basophils Percent Auto 0.4 % (0-2); Eosinophils Absolute Auto 0.1 X10*3/uL (0.0-0.4); Eosinophils Percent Auto 1.3 % (0-4); Hemoglobin 13.6 g/dl (12.0-16.0); Imm Gran Abs Auto 0.04 X10*3/uL (0.00-0.03); Imm Gran Pct Auto 0.4 % (0.0-0.4); Lymphocytes Absolute Auto 1.8 X10*3/uL (1.2-4.9); Lymphocytes Percent Auto 18.6 % (20-40); Mean Corpuscular HGB Conc 34.9 g/dl (31.0-35.0); Mean Corpuscular Hemoglobin 31.6 pg (27.0-33.0); Mean Corpuscular Volume 90.5 fL (80.0-98.0); Mean Platelet Volume 9.1 fL (9.4-12.3); Monocytes Absolute Auto 0.6 X10*3/uL (0.1-1.2); Monocytes Percent Auto 5.8 % (2-11); Neutrophils Absolute Auto 7.1 x10*3/uL (2.0-8.3); Neutrophils Percent Auto 73.5 % (45-73); Platelet Count 303 X10*3/uL (160-400); Red Blood Count 4.31 X10*6/uL (4.20-5.50); Red Cell Distribution Width 13.2 % (11.0-16.0); White Blood Count 9.7 X10*3/uL (4.8-10.8)
[2024-06-25 11:51] LABS: Alanine Aminotransferase 23 U/L (0-31); Alkaline Phosphatase 69 U/L (39-117); Anion Gap 11 (12-20); Aspartate Amino Transferase 25 U/L (5-31); Bilirubin Total 0.9 mg/dL (0.0-1.0); Blood Urea Nitrogen 9 mg/dL (9-16); Calcium 9.3 mg/dL (8.4-10.2); Carbon Dioxide 25 mmol/L (22-29); Chloride 108 mmol/L (96-108); Cholesterol 110 mg/dL (<200); Estimated Glomerular Filt Rate > 60; Glucose Random 79 mg/dL (60-115); HDL Cholesterol 37 mg/dL (>40); LDL Cholesterol Calculated 62 mg/dL (<100); Potassium 4.5 mmol/L (3.3-5.1); Sodium 139 mmol/L (135-145); Total Protein 7.5 g/dL (6.5-8.0); Triglycerides 58 mg/dL (<150)
[2024-06-25 11:55] LABS: Ferritin 94 ng/mL (10-122); TSH reflex Free T4 1.31 uIU/mL (0.32-4.0)
== END 2024-06-25 09:26 | disposition home or self-care (01) ==
LOC: HO.HHCL 09:25
PROVIDERS: Visit Provider Registered Nurse
DX: E66.813 Obesity, class 3 (principal); Z68.43 Body mass index [BMI] 50.0-59.9, adult; E66.01 Morbid (severe) obesity due to excess calories
CPT/HCPCS: 36415; 80053; 80061; 82306; 82728; 84443; 85025

== ENCOUNTER 2024-09-06 11:50 | Outpatient (AMB) | payer MEDICAID, SELFPAY ==
--- NOTE | 2024-09-06 12:16 | MHC.OFFVIS ---
Vital Signs 09/06/24 12:22 Height 4 ft 11 in Weight 253 lb BMI 51.1 Intake Visit Reasons: OV - f/u LT ACL recon. w/ Allograft 04/14/24 NE Intake Note: Fabiola is a 28 year old female who presents today for a follow up s/p LT ACL reconstruction with Allograft 04/14/24. Patient has experienced some interpersonal problems that have impacted her adherence to post operative protocol, at her last visit she was referred to Physical therapy. Patient states she is doing well. She is going to PT and has been taking Tylenol as needed. Allergies acetic acid Allergy (Severe, Verified 09/06/24 12:19) Anaphylaxis from Vinegar raspberry [RASPBERRY] Allergy (Severe, Verified 09/06/24 12:19) Anaphylaxis turkey Allergy (Severe, Verified 09/06/24 12:19) Anaphylaxis azithromycin [AZITHROMYCIN] Allergy (Unknown, Verified 09/06/24 12:19) Vomiting cefuroxime [From Ceftin] Allergy (Unknown, Verified 09/06/24 12:19) Vomiting clonidine [CLONIDINE] Allergy (Unknown, Verified 09/06/24 12:19) Nausea and Vomiting dexlansoprazole [From Dexilant] Allergy (Unknown, Verified 09/06/24 12:19) Unknown methylphenidate [Methylphenidate] Allergy (Unknown, Verified 09/06/24 12:19) Unknown nortriptyline [NORTRIPTYLINE] Allergy (Unknown, Verified 09/06/24 12:19) Swelling pantoprazole [PANTOPRAZOLE] Allergy (Unknown, Verified 09/06/24 12:19) Unknown penicillin V Allergy (Unknown, Verified 09/06/24 12:19) Vomiting latex Allergy (Verified 09/06/24 12:19) Anaphylaxis shellfish derived Allergy (Verified 09/06/24 12:19) Anaphylaxis celecoxib [CELECOXIB] Adverse Reaction (Unknown, Verified 09/06/24 12:19) Nausea and Vomiting erythromycin base [ERYTHROMYCIN BASE] Adverse Reaction (Unknown, Verified 09/06/24 12:19) Hives, Vomiting lorazepam [From Ativan] Adverse Reaction (Unknown, Verified 09/06/24 12:19) Agitated Penicillins [PENICILLINS] Adverse Reaction (Unknown, Verified 09/06/24 12:19) Stomach Upset Epidural Needle Allergy (Unknown, Uncoded 04/08/24 13:29) Unknown HPI HPI OV - f/u LT ACL recon. w/ Allograft 04/14/24 NE: Details: Fabiola is a 28 year old female who presents today for a follow up s/p LT ACL reconstruction with Allograft 04/14/24. Patient has experienced some interpersonal problems that have impacted her adherence to post operative protocol, at her last visit she was referred to Physical therapy. Patient states she is doing well. She is going to PT and has been taking Tylenol as needed. She states she is happy and feels good in his for doing her physical therapy and does not want to do anymore. [facility] Medical History Seizures Frequent falls Cochlear implant in place Lesion of liver Hearing impaired Fibromyalgia Surgical History Hx of cholecystectomy [place] teeth removed Family History Mother Rheumatoid arthritis Osteoarthritis Father Arthritis Social History Household Members: Family Housing: Apartment Do you presently have visiting nurse or other home services: No Alcohol intake: current Alcohol intake frequency: a few times a week Comment: pt refusing high fall risk interventions Patient Tobacco Use Status: Former Tobacco user Tobacco use type: Cigarette Years Smoked: 8 Current occupational status: student Physical Exam Vital Signs: BMI result Body Mass Index 51.1 Extrem Other: Full range of motion left knee. Stay but a varus and valgus stress. 1+ Babak's with endpoint. Portals clean dry and intact. No effusion. Results Reviewed Results Reviewed: I personally reviewed relevant radiographs. Status post ACL reconstruction. No obvious hardware complications Assessment & Plan Assessment & Plan (1) Status post reconstruction of anterior cruciate ligament: Code(s): Z98.890 - Other specified postprocedural states Category: Surgical Plan: Doing well but minimally compliant. ACL seems to be intact. I recommend strengthening and avoidance of twisting or lateral dynamic activities. Can follow up in 6 months. Orders: Orders XR knee LT 2V Today Z98.890 - Other specified postprocedural states Coding Level of Care Code Est Pt Level 3 (39639) Diagnoses Status post reconstruction of anterior cruciate ligament Z98.890
[2024-09-06 12:22] VITALS: BMI 51.1
--- OUTSIDE RECORDS SUMMARY | 2024-09-06 13:04 | XMS_ITS | Clinical Summary ---
Author Organization [facility] Address [address] [address] Care Team Providers Care Car Park Attendant Name Role Phone Unavailable Primary Care Provider [...] Intellectual disability 07/12/2021 Gallbladder calculus with ac crow cholecystitis and no obstruction 01/09/2021 High lipase [...] hyperactivity disorder 015 Morbid obesity 12/21/2013 Immunizations Immunization Administration Dates Next Due DTP [...] Due Date Last Done Comments Influenza Vaccine (Season Ended) 2024 03/07/2014, 03/08/2013, 01/24/2012, Additional history exists Hepatitis B Vaccine Completed 10/04/1994, 03/06/1994, 01/04/1994 Pneumococcal Vaccine: Peds (0 to 5 Years) and At-Risk Patients (6 to 49 Years) Aged Out No longer eligi ble based on patient's age to complete this topic [place]
== END 2024-09-06 12:35 | disposition home or self-care (01) ==
LOC: HO.HOS 11:50
PROVIDERS: Visit Provider Orthopaedic Surgery
DX: Z47.89 Encounter for other orthopedic aftercare (principal); S83.512A Sprain of anterior cruciate ligament of left knee, initial encounter
CPT/HCPCS: 99213

== ENCOUNTER 2024-09-06 11:50 | Outpatient (REF) | payer MEDICAID, SELFPAY ==
--- NOTE | ~2024-09-06 | XR_ITS ---
EXAMINATION: XR KNEE 1-2 VIEWS LEFT HISTORY: Z98.890 - Other specified postprocedural states COMPARISON: Comparison is made with the prior examination dated 06/07/2024. FINDINGS: Standing AP views of both knees and an additional lateral view of the left knee are submitted. Osseous mineralization is normal. Findings of prior ACL repair are again seen. The hardware is in a similar position given differences in technique and patient positioning. There is no fracture or dislocation. The joint spaces are preserved. The soft tissues are unremarkable. There is no joint effusion. XR/XR knee LT 2V IMPRESSION: Status post ACL repair. Electronically signed by: Casey Lozano MD 09/06/2024 02:38 PM EDT
== END 2024-09-06 11:51 | disposition home or self-care (01) ==
LOC: HO.HOSX 11:50
PROVIDERS: Visit Provider Orthopaedic Surgery
DX: Z47.89 Encounter for other orthopedic aftercare (principal)
CPT/HCPCS: 73560; 99212

== ENCOUNTER → 2024-09-06 12:09 | Outpatient (BNV) | payer MEDICAID, SELFPAY | PROVIDERS: Visit Provider Radiology Diagnostic Radiology | DX: Z98.890 Other specified postprocedural states (principal) | CPT/HCPCS: 73560 ==

== ENCOUNTER 2025-01-19 13:52 | Outpatient (AMB) | payer MEDICAID, SELFPAY ==
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
--- OUTSIDE RECORDS SUMMARY | 2025-01-19 17:39 | XMS_ITS | Encounter Summary ---
Author Organization [facility] Address [address] [place], [place] [phone] Phone Care Team Providers Care Information Engineer Name Role Phone Ari Latham MD Primary Care Provider Joseph cortes Encounter Details Date Type Department Care Team (Late st Contact Info) Description 11/27/2011 Documentation [facility] [place] [address] [place], [place] [phone] Family Medicine, Physician [facility] [place] [address] Social History Tobacco Use Types Packs/Day Years [...] filedocumented in this encounter Care Teams Information Engineer Relationship Specialty Start Date End Date Ari Latham MD PCP - General 11/15/16 07/07/22 documented as of this encounter
--- OUTSIDE RECORDS SUMMARY | 2025-01-19 17:39 | XMS_ITS | Clinical Summary ---
Author Organization [facility] Address [address] [place] [address] Phone Care Team Providers Care General Surgery Physician Assistant Name Role Phone Unavailable Primary Care Provider [...] 97 10/05/2014 12:00 AM EDT Temperature 36.7 C (98.1 F) 08/10/2014 12:00 AM EDT Respiratory Rate - - Oxygen Saturation - [...] 07/06/1995, Additional history exists Influenza Vaccines (#1) 2024 03/07/20 14, 03/08/2013, 02/11/2011, Additional history exists COVID-19 Vaccine ( season) 2024 Hepatitis B Vaccines Completed 10/04/1994, 03/06/1994, 01/04/1994 [...] complete this topic Procedures * Due to [place] state law, this organization might not be sharing sensitive test results. Procedure Name Priority Date/Time Associated Diagnosis Comments CHLAMYDIA AND GONORRHEA, AMPLIFIED Routine 10/06/2014 2:30 PM EDT from Last 3 Months or Most Recently Relevant to Health Maintenance Results * Due to [place] state law, this organization might not be sharing sensitive test results. * Chlamydia and Gonorrhoea, Amplified (10/06/2014 2:30 PM EDT) URINE CHLAMYDIA AMP PROBE NEGATIVE [facility] Comment: No Chlamydia Trachomatis RNA detected in this patient's sample (REFERENCE RANGE/NORMAL VALUE: NOT DETECTED) URINE GC AMP PROBE NEGATIVE [facility] Comment: No Neisseria Gonorrhoeae RNA detected in this patient's sample (REFERENCE RANGE/NORMAL VALUE: NOT DETECTED) NOTE: This test uses associate professor of communication-mediated amplification method to detect rRNA from C.Trachomatis [...] without risk of sexual abuse. Consult the [facility] if needed. Contact phone number . Therapeutic failure or success cannot be determined with the Aptima Combo2 assay since nucleic acid may persist following appropriate antimicrobial therapy. The Centers for Disease Control and Prevention (CDC) recommends confirmatory retesting using culture or a different nucleic acid amplification test when positive results occur, if indicated. Testing performed or reported by [facility], a Service of [facility], [address] [place] [address] Sean Castro MD, PhD, Environmental Auditor 10/06/2014 2:30 PM EDT Narrative [facility] - 10/06/2014 2:30 PM EDT URINE CHLAMYDIA GC AMP PROBE us Bhumi Riojas NP LAB MICROBIOLOGY - GENERAL OR DERABLES Final Result [facility] [address] [place] [id number], from Last 3 Months or Most Recently Relevant to Health Maintenance
--- OUTSIDE RECORDS SUMMARY | 2025-01-19 17:39 | XMS_ITS | Encounter Summary ---
Author Organization [facility] Address [address] [place], [place] [phone] Phone Care Team Providers Care Makeup Instructor Name Role Phone Ari Latham MD Primary Care Provider Joseph cortes Encounter Details Date Type Department Care Team (Late st Contact Info) Description 06/15/2011 Documentation [facility] [place] Family Medicine [address] [place], [place] [phone] Family Medicine, Physician [place] [address] Social History Tobacco Use Types Packs/Day Years [...] on filedocumented in this encounter Care Teams Makeup Instructor Relationship Specialty Start Date End Date Ari Latham MD PCP - General 11/15/16 07/07/22 documented as of this encounter
--- OUTSIDE RECORDS SUMMARY | 2025-01-19 17:39 | XMS_ITS | Encounter Summary ---
Author Organization [facility] Address [address] [place] [address] 7 [place] [address] Care Team Providers Care Firer Locomotive Name Role Phone [facility] Primary Care Provider [phone] Paul Yu CARBONIZER TESTER Unavailable Unavailable Reason for Visit * Reason Onset Date Comments pt1 06/26/2022 PT1 07/09/2022 Encounter Details Date Type Department Care Team ([facility] st Contact Info) Description 06/26/2022 Telephone [facility] [address] [place], [place] [phone] [facility] [address] [place] [address] pt1; PT1 Social History Tobacco Use Types [...] / denial letter via mail. PT-1 Request [id number] Pending. [facility] * Telephone Encounter - Ade Corrales - 07/09/2022 8:51 AM EDT Tc from patient re calling in regards to message below. Patient has a surgery on 07/15/22. * Telephone Encounter - Adam Ramos - 06/26/2022 9:25 AM EDT Tc from pt requesting to renew pt1 Location:[address] [place] [address] Specialty: surgery Time: 6 am Date: July 15 2022 Metal Inspector: yes wheelchair accessible : no Location::[address] [place] [address] Specialty: post op Time: na Date:na Metal Inspector: yes wheelchair accessible :na documented in this encounter Plan of Treatment Upcoming Encounters Date Type Department Care Team (Late st Contact Info) Description 02/14/2025 1:45 PM EST Office Visit [facility] [address] [place] [address] Sofy Cardenas FNP [address] [place] [address] documented as of this encounter Visit Diagnoses Not on filedocumented in this encounter Additional Health Concerns Assessment Noted Time PHQ-9 Depression Total Score: 3 05/23/19 23 11:16 AM EST documented as of this encounter Care Teams Firer Locomotive Relationship Specialty Start Date End Date Sofy Cardenas FNP [address] [place] [address] PCP - General Family Medicine 11/30/21 Paul Yu FNP [address] [place], [place] [address]Tavo [place] [address] Nurse Practitioner Family Medicine 02/26/23 documented as of this encounter
--- OUTSIDE RECORDS SUMMARY | 2025-01-19 17:39 | XMS_ITS | Encounter Summary ---
Author Organization [facility] Address [address] [place], [place] [phone] Phone Care Team Providers Care Internet Marketing Intern Name Role Phone Ari Latham MD Primary Care Provider Joseph cortes Encounter Details Date Type Department Care Team (Late st Contact Info) Description 05/22/2010 Documentation [facility] Family Medicine [address] [place], [place] [phone] Family Medicine, Physician [facility] [place] [address] Social History Tobacco Use Types Packs/Day Years [...] on filedocumented in this encounter Care Teams Internet Marketing Intern Relationship Specialty Start Date End Date Ari Latham MD PCP - General 11/15/16 07/07/22 documented as of this encounter
--- OUTSIDE RECORDS SUMMARY | 2025-01-19 17:39 | XMS_ITS | Encounter Summary ---
Author Organization [facility] Address [address] [place], [place] [phone] Phone Care Team Providers Care Wedding Designer Name Role Phone Ari Latham MD Primary Care Provider Joseph cortes Encounter Details Date Type Department Care Team (Late st Contact Info) Description 04/24/2012 Documentation [facility] Family Medicine [address] [place], [place] [phone] Family Medicine, [place] [address] Social History Tobacco Use Types Packs/Day Years [...] on filedocumented in this encounter Care Teams Wedding Designer Relationship Specialty Start Date End Date Ari Latham MD PCP - General 11/15/16 07/07/22 documented as of this encounter
--- OUTSIDE RECORDS SUMMARY | 2025-01-19 17:39 | XMS_ITS | Encounter Summary ---
Author Organization [facility] Address [address] [place] [address] Phone Care Team Providers Care Accounts Officer Name Role Phone Ari Latham MD Primary Care Provider Joseph cortes Encounter Details Date Type Department Care Team (Late st Contact Info) Description 11/21/2016 Conversion Encounter [facility] - [address] [address] Social History Tobacco Use Types Packs/Day Years [...] on filedocumented in this encounter Care Teams Accounts Officer Relationship Specialty Start Date End Date Ari Latham MD PCP - General 11/15/16 07/07/22 documented as of this encounter
--- OUTSIDE RECORDS SUMMARY | 2025-01-19 17:39 | XMS_ITS | Clinical Summary ---
Author Organization [employer] Address [address] [place] [address] 7 [place] [address] Care Team Providers Care Shear Operator Automatic Name Role Phone Sofy Cardenas HEARTH FEEDER Primary Care Provider [phone] Paul Yu HEARTH FEEDER Unavailable Unavailable Allergies Active Allergy Reactions Criticality [...] MG tabletIndications: Arnold-Chiari malformation, type I (CMS/HCC) (HCC) TAKE 1 TABLET BY MOUTH THREE TIMES [...] or chew. 90 capsule 3 10/20/19 24 Active lurasidone (Latuda) 60 MG tablet Take [...] and swelling). 30 g 05/26/19 25 Active phentermine 15 MG capsuleIndications :Class 3 severe obesity due to excess calories with serious comorbidity and body mass index (BMI) of 50.0 to 59.9 in adult ([facility]) Take 1 capsule (15 mg) by mouth before breakfast. 30 capsule 09/25/19 25 Active gatifloxacin (Zymar) 0.5 % solution ophthalmic solutionIndication s:Acute conjunctivitis of right eye, unspecified acute conjunctivitis type Administer 1 drop into the right eye 4 times daily. 2.5 mL 12/03/19 25 Active Tirzepatide-Weight Management (Zepbound) 2.5 MG/0.5ML solution auto-injectorIndic ations:Class 3 severe obesity due to excess calories with serious comorbidity and body mass index (BMI) of 50.0 to 59.9 in adult ([facility]) Inject 0.5 mL (2.5 mg) under the skin 1 (one) time per week. 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 Rodrigez Indication: recurrent biliary colic Assessment & Plan [...] so patient will be referred to new [facility] Psychiatric prescriber. She is aware that appts will be via [employer] and that provider will not be an [facility] employee. She gives permission to share [...] then she will be referred to new [facility] Psychiatric prescriber. Continue with therapist. She [...] continue. Will start with new therapist at [facility]. F/U 2-3 months. She agrees [...] She will continue with her therapist at [facility]. F/U 6 weeks. She agrees [...] She will continue with her therapist at [facility] but does not want to [...] She will continue with her therapist at [facility] but does not want to [...] She will continue with her therapist at [facility] but does not want to consider transferring to psychiatric provider there. F/U 2 weeks. She agrees with the plan. PCOS (polycystic ovarian syndrome) 10/29/2021 Asthma 01/04/2021 Complex renal cyst 09/22/2020 Migraine without aura 07/31/2020 Focal nodular hyperplasia of liver 01/10/2015 Overview (04/18/2022): Wedge resection of liver 05/2012 Wedge resection of liver 05/2012 Arnold-Chiari malformation, type I (CMS/HCC) 09/2014 Overview (04/18/2022): MRI 2007 MRI 2008 Seasonal [...] Problem Noted Date Diagnosed Date Resolved Date Vaginal discharge 06/09/2024 06/25/2024 Assessment & Plan (06/09/2024 9:52 AM EST): BV/CG done patient will be contacted with results UTI symptoms 06/09/2024 06/25/2024 Assessment & Plan (06/09/2024 9:52 AM EST): Drink plenty of water do not hold urine Irritant contact dermatitis due to other agents 05/26/2024 06/25/2024 Assessment & Plan (05/26/2024 3:34 PM EST): Triamcinolone BID Avoid triggers Acute pain of right knee 10/06/2023 Assessment & Plan (10/15/2023 6:53 PM EDT): Suspect hamstring strain, will reassess if not improving with rest and stretching over 6-8 weeks. Pt decines pt Muscle spasm of left lower extremity 10/06/2023 06/25/2024 Assessment & Plan (10/15/2023 6:53 PM EDT): Prn muscle relaxor. Hemoptysis 04/18/2023 06/25/2024 Assessment & Plan (04/23/2023 10:42 AM EST): F/u with PCP Sore throat 04/18/2023 06/25/2024 Candidal vulvovaginitis 08/08/202208/05 Subchorionic hemorrhage of p lacenta in first trimester 12/27/2021 08/15/2022 Hyperemesis gravidarum 12/27/202108/15 Overview (04/18/2022): Admitted to [facility] 12/26 for IV hydration and IV zofran and phenergan Admitted to [facility] 12/26 for IV hydration and IV [...] answered. Miscarried on 12/28/21 Was seen at [facility]. US report in media This is [...] answered. Miscarried on 12/28/21 Was seen at [facility]. US report in media This is her 3rd SAB. 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 12/24/2021 05/09/2022 Overview (04/18/2022): Has [...] Major depressive disorder 01/04/2021 Overview (04/18/2022): isa medrano isa medrano Anxiety 01/04/2021 08/15/2022 Seizure ([facility]/HCC) 09/10/2020 08/15/2022 Urinary incontinence 07/31/2020 023 Pain in both hands 07/31/2020 Arthralgia of right ankle 07/31/2020 Posttraumatic stress disorder 01/05/2015 08/15/2022 Morbid obesity ([facility]) 12/21/201302/2023 Overview (04/18/2022): Obesity in (BMI >30) BMI at Intake Date Obesity plan of care discussed BMI > 50 (at 36 weeks or before) transfer to tertiary care (send TE to [facility]) * If BMI 40 or greater discuss [...] transfer to tertiary care (send TE to [facility]) * If BMI 40 or greater discuss [...] Encounters Date Type Department Care Team Description 01/13/2025 Telephone [facility] [address] [place] [address] Sofy Cardenas FNP Med Refill 12/30/[address] [address] Sofy Cardenas FNP Nurse Triage 12/14/[address] [address] Sofy Cardenas FNP Class 3 severe obesity due to excess calories with serious comorbidity and body mass index (BMI) of 50.0 to 59.9 in adult 12/13/2024 Patient Outreach [facility] [address] [place] [address] Sofy Cardenas FNP Care Coordination (C3CM/CHW Odilon Garrett, Sdoh f/u call, closed ) 12/01/2024 5:40 PM EDT Office Visit [facility] [address] [place] [address] Laya Herring MD Acute conjunctivitis of right eye, unspecified acute conjunctivitis type (Primary Dx) 12/01/2024 Travel 11/22/2024 Patient Outreach [address] [address] Sofy Cardenas FNP Care Coordination (C3CM/CHW Odilon Garrett, TC #2 SDOH f/u call_lvm) 11/15/[address] [address] Sofy Cardenas FNP Prior Authorization ( PA: Gissel) 11/03/2024 11:45 AM EDT Telemedicine [address] [address] Sofy Cardenas FNP Class 3 severe obesity due to excess calories with serious comorbidity and body mass index (BMI) of 50.0 to 59.9 in adult (Primary Dx) 11/03/2024 Travel 11/02/2024 Telephone [facility] [address] [place] [address] Sofy Cardenas FNP Chart Prep 10/28/[address] [address] Shameka Banks size mixer 10/19/2024 Patient Outreach [facility] [address] [place] [address] [phone] [facility] Care Coordination (C3CM/CHW DIAMOND Manley f/u call_lvm ) from Last 3 Months Immunizations Immunization Administration Dates Next Due DTP [...] MMR 02/04/1998,05/07/1995 Meningococcal MCV4P ACYW-135 09/22/2020,01/24/20 07 OPV, Trivalent 08/04/1998, 5,06/04/1994,03/06 Pfizer Covid-19 Vaccine 12+ Bivalent [...] Answer Date Recorded Patient Health Questionnaire-9 Score 10 09/24/2024 Patient Health Questionnaire-9 Score 10 09/24/2024 Last PHQ-9: Questionnaire Data Not on file 0 09/24/2024 Housing Stability Answer Date Recorded What is your housing situation today? I do not have housing (Staying with others, in a hotel, in a group home, living outside on the street, on a beach, in a car, or in a park 06/28/[address] you li ve. Do you have problems with any of the following? None of the above 06/28/2024 Food Insecurity Answer Date Recorded Within the past 12 months, y ou worried that your food would run out before you got money to buy more: Sometimes True 2024 Within the past 12 months,th e food you bought just didn't last and you didn't have enough money to get more: Sometimes True 06/28/2024 Transportation Answer Date Recorded In the past [...] Date Recorded Patient Health Questionnaire-2 Score 3 09/24/2024 Internet Access Answer Date Recorded Internet Access Q1 Yes 03/19/2024 Internet Access Q2 Not on file 03/19/2024 Comments No Sex and Gender Information Value Date Recorded Sex Assigned at Female 02/04/2022 10:32 AM EDT Legal Sex Female 10:32 AM EDT Gender Identity Female 02/04/2022 10:32 AM EDT Sexual Orientation Straight 02/04/2022 10 :32 AM EDT Last Filed Vital Signs Vital Sign Reading Time Taken Comments Blood Pressure 109/76 12/01/2024 5:18 PM EDT Pulse 71 12/01/2024 5:18 PM EDT Temperature 36.9 C (98.4 F) 12/01/2024 5:18 PM EDT Respiratory Rate 19 12/01/2024 5:18 PM EDT Oxygen Saturation 99% 12/01/2024 5:18 PM EDT Inhaled Oxygen Concentration - - Weight 118 kg (259 lb 12.8 oz) 09/24/2024 8:58 A M EDT Height 149.9 cm (4' 11 ) 12/01/2024 5:18 PM EDT Body Mass Index 52.47 09/24/2024 8:58 AM EDT Plan of Treatment Upcoming Encounters Date Type Department Care Team (Late st Contact Info) Description 02/14/2025 1:45 PM EST Office Visit [facility] [address] [place], [place] [phone] [place], [place], HEARTH FEEDER [address] [place], [place] [phone] Health Maintenance Due Date Last Done Comments Family Planning (PISQ) 2008 HPV/Cotest 12/07/2023 COVID-19 Vaccine ( season) 2024 11/19/2022, 11/21/2021, 08/17/2020, Additional history exists Influenza Vaccine (#1) 2024 4, 03/07/2014, 03/08/2013, Additional history exists Depression Monitoring 03/26/2025 09/24/2024, 025 SDOH Screening 06/28/2025 06/28/2024 Alcohol/Substance Use Screening 09/24/2025 09/24/2024 Disability Screening 09/24/2025 09/24/2024 Tobacco Screening 12/01/2025 12/01/2024 Cervical Cancer Screening 02/19/2026 Pap Smear 02/19/2026 02/19/2023 DTaP/Tdap/Td Vaccines (9 - Td or Tdap) 11/14/2027 11/13/2017, 02/20/2012, 01/23/2006, Additional history exists Lipid Panel 06/25/2029 06/25/2024 Zoster Vaccines (1 of 2) 12/07/2043 RSV [...] Years) and At-Risk Patients (6 to 49) Years Completed 11/21/2021 Hepatitis C Screening Completed 06/28/2022, 022 HIV Screening Completed 04/18/2023, 06/06, 08/31/2021 Meningococcal B Vaccine Aged Out No l onger eligible based on patient's age to complete this topic RSV under 20 months Aged Out No longe r eligible based on patient's age to complete this topic Rotavirus Vaccines Aged Out No longer eligible based on patient's age to complete this topic Procedures Procedure Name Priority Date/Time Associated Diagnosis Comments LIPID PANEL, STANDARD Routine 06/25/2024 9:27 AM EDT Class 3 severe obesity due to excess calories with serious comorbidity and body mass index (BMI) of 50.0 to 59.9 in adult ([facility]) HIV 1/2 ANTIGEN/ANTIBODY, FOURTH GENERATION W/RFL Routine 04/18/2023 12:05 PM EST Hemoptysis PAP SMEAR Routine 02/19/2023 10:40 AM EST HEPATITIS C ANTIBODY Routine 06/28/2022 2:05 PM EDT Acute carpal tunnel syndrome, unspecified laterality from Last 3 Months or Most Recently Relevant to Health Maintenance Results * (ABNORMAL) Lipid Panel, Standard (06/25/2024 9:27 AM EDT) Triglycerides 58 <150 mg/dL [facility] Comment:Desirable Triglyceri de: less than 150 mg/dLBorderline High Triglyceride 150-199 mg/dLHigh Triglyceride: 200-499 mg/dLVery High Triglyceride: greater than or equal to 5OO mg/dL Cholesterol 110 <200 mg/dL [facility] Comment:Desirable Cholestero l: less than 200 mg/dLBorderline High Cholesterol: 200-239 mg/dLHigh Cholesterol: greater than 239 mg/dL LDL Cholesterol Calculated 62 <100 mg/dL [facility] Comment:Desirable LDL: less than 100 mg/dLNear Optimal/Above Optimal LDL: 110- 129 mg/dLBorderline High LDL: 130-159 mg/dLHigh LDL: 160-189 mg/dLVery High LDL: greater than or equal to 190 mg/dL HDL Cholesterol 37(L) >40 mg/dL [facility] Comment:Desirable HDL: great er than 40 mg/dL Note: This HDL assay may give artificially low results in patients with liver disease. Blood Venous blood specimen / Unknown 06/25/2024 9:27 AM EDT 06/25/2024 11:07 AM EDT [facility] LAB BLOOD ORDERABLES Final Re sult [facility] [address] [place] [address] [phone] * HIV-1/2 Antigen and Antibodies, Fourth Generation, with Reflexes (04/18/2023 12:05 PM EST) HIV AB/AG Nonreactive Nonreactive [facility] Comment:HIV-1 p24 Ag and/or HIV-1/HIV-2 Ab not detected.A test result that is nonreactive does not exclude thepossibility of exposure to or infection with HIV-1 and/orHIV-2. Nonreactive results in this assay for individualswith prior exposure to HIV-1 and/or HIV-2 may be due toantigen and antibody levels that are below the limit ofdetection of this assay.The [employer] Alinity HIV Ag/Ab Combo assay result andsupplemental assay results should be interpreted inconjunction with the patient's clinical presentation,history and other laboratory results. If the results areinconsistent with clinical evidence, additional testing issuggested to confirm the result. Blood Venous blood specimen / Unknown 04/18/2023 12:05 PM EST 04/18/2023 1:04 PM EST Laya Bundy MD LAB BLOOD ORDERABLES Final Result [facility] [address] [place] [phone] * Pap Smear (02/19/2023 10:40 AM EST) 02/19/2023 10:4 0 AM EST 02/20/2023 10:45 AM EST Sam [facility] - 03/11/2023 7:55 AM EST ----- ------- Name: Fabiola Varela Age/Sex: 27/F : 1995 Unit#: [id number] Attend Dr: Sofy Cardenas HEARTH FEEDER Re02/19/23 Status: DEP REF Location: HO.HHCLNP Disch: ----- ------- SPEC : [id number] RECD: 02/20/23 STATUS: LUZ MARINA DELAROSA NUM: [id number] SERGO: 02/19/[address] [facility] [address]: Sofy Cardenas [facility] ENTERED: 02/21/23 SP TYPE: Pap Smr OTHR DR: ORDERED: Pap Smear Interpretation Satisfactory for evaluation. No endocervical cells seen. Blood. Mild inflammation. Negative for intraepithelial lesion or malignancy. Clinical Information LMP: Unknown date Previous PAP test: Unknown date/findings Material Received ThinPrep-Cervical ----- ------- Signed (signature on file) J CARLOS Pena (ASCP) 03/11/23 0755 ----- ------- END OF REPORT [facility] LAB CYTOLOGY ORDERABLES Final Result [facility] [address] [place] [phone] * Hepatitis C Ab (06/28/2022 2:05 PM EDT) Pathologist [facility] Hepatitis C Antibody Nonreactive Nonreactive [facility] Comment:Antibodies to HCV no t detected; does not exclude early acuteHCV infection. 06/28/2022 2:05 PM EDT 06/28/2022 2:05 PM EDT [facility] External Provider LAB BLO OD ORDERABLES Final Result [facility] [address] [place] [address] [phone] from Last 3 Months or Most Recently Relevant to Health Maintenance [facility] Care Teams Shear Operator Automatic Relationship Specialty Start Date End Date Sofy Cardenas FNP [address] [place] [address] PCP - General Family Medicine 11/30/21 Paul Yu FNP [address] [place] [address] Nurse Practitioner Family Medicine 02/26/23
--- OUTSIDE RECORDS SUMMARY | 2025-01-19 17:39 | XMS_ITS | Encounter Summary ---
Author Organization [employer] Address [address] [facility] [address] [place] [address] Care Team Providers Care Crop Duster Name Role Phone Ronald Sofy AREA DEVELOPMENT CONSULTANT Primary Care Provider [phone] Paul Yu Unavailable Unavailable Encounter Details Date Type Department Care Team (Late st Contact Info) Description 09/16/2023 Orders Only [facility] [address] [place], [place] [phone] Lanny Lamb FNP [address] [place] [address] Social History Tobacco Use Types Packs/Day Years [...] Description 02/14/2025 1:45 PM EST Office Visit [facility] [address] [place], [place] [phone] [facility] [address] [place], [place] [phone] documented as of this encounter Procedures Procedure Name Priority Date/Time Associated Diagnosis Comments XR KNEE 1-2 VIEWS LEFT Routine 10/01/2023 2:15 AM EDT documented in this encounter Results * XR Knee 1-2 Views Left (10/01/2023 2:15 AM EDT) Anatomical Region Laterality Modality Lower Extremities, Knee Left [facility] 10/01/2023 2:15 AM EDT Narrative 10/01/2023 3:26 AM EDT [address] [address] XRay Report Signed Patient: Fabiola Varela MR#: [id number] : 1995 Acct:[id number] Age/Sex: 27 / F ADM Date: 10/01/23 Loc: .ED Attending Dr: Ordering Physician: Ernestine Lassiter MD Date of Service: 10/01/23 Procedure(s): XR knee LT 2V Accession Number(s): [id number] cc: Ernestine Lassiter MD; [facility] EXAMINATION: XR KNEE, LEFT CLINICAL [...] Moise MD in OV> 10/01/23 0322 DD/ 4 TD/TT: Body Design Checker: CARRIE Procedure Note Donotuseinterpreter, Image - 10/01/2023 [place] [address] XRay Report Signed Patient: Fabiola VarelaMR#: [id number] : 1995Acct:[id number] Age/Sex: 27 FADM Date: 10/01/23 Loc: .ED Attending Dr: Ordering Physician: Ernestine Lassiter MD Date of Service: 10/01/23 Procedure(s): XR knee LT 2V Accession Number(s): [id number] cc: Ernestine Lassiter MD; [facility] EXAMINATION: XR KNEE, LEFT CLINICAL [...] in OV> 10/01/23 0322 DD/ 0215 TD/TT: Body Design Checker: CARRIE [facility] External Provider IMG XR PROCEDURES Edited Result - Final documented in this encounter Visit Diagnoses Not on filedocumented in this encounter Additional Health Concerns Assessment Noted Time PHQ-9 Depression Total Score: 2 07/07/19 24 10:19 AM EDT documented as of this encounter Care Teams Crop Duster Relationship Specialty Start Date End Date Sofy Cardenas FNP [address] [place] [address] PCP - General Family Medicine 11/30/21 Paul Yu FNP [address] [place] [address] Nurse Practitioner Family Medicine 02/26/23 documented as of this encounter
--- OUTSIDE RECORDS SUMMARY | 2025-01-19 17:39 | XMS_ITS | Encounter Summary ---
Author Organization [employer] Address [address] [place] [address] [place] [address] Care Team Providers Care Production Grip Name Role Phone [place] [facility] Primary Care Provider [phone] Paul Yu Unavailable Unavailable Reason for Visit * Reason Onset Date Comments Results 06/07/2022 Encounter Details Date Type Department Care Team ([facility] st Contact Info) Description 06/07/2022 Telephone [facility] [address] [place], [place] [phone] [place] [facility] [address] [place] [address] Results Social History Tobacco Use Types Packs/Day [...] verbalized understanding * Telephone Encounter - Tyson Boyle - 06/07/2022 2:29 PM EST Tc from pt requesting a status on ENG that was done on 05/29/2022. Please contact pt with results at [phone] documented in this encounter Plan of Treatment Upcoming Encounters Date Type Department Care Team (Late st Contact Info) Description 02/14/2025 1:45 PM EST Office Visit [facility]ICINE [address] [place] [address] Sofy Cardenas FNP [address] [place] [address] documented as of this encounter Visit Diagnoses Not on filedocumented in this encounter Additional Health Concerns Assessment Noted Time PHQ-9 Depression Total Score: 3 05/23/19 23 11:16 AM EST documented as of this encounter Care Teams Production Grip Relationship Specialty Start Date End Date Sofy Cardenas FNP [address] [place] [address] PCP - General Family Medicine 11/30/21 Paul Yu FNP [address] [place] [address] Nurse Practitioner Family Medicine 02/26/23 documented as of this encounter
--- OUTSIDE RECORDS SUMMARY | 2025-01-19 17:39 | XMS_ITS | Encounter Summary ---
Author Organization [facility] Address [address] [place], [place] [phone] Phone Care Team Providers Care Health Care Marketing Specialist Name Role Phone Ari Latham MD Primary Care Provider Joseph cortes Encounter Details Date Type Department Care Team (Late st Contact Info) Description 03/09/2010 Documentation [facility] Family Medicine [address] [place], [place] [phone] Family Medicine, Physician Count includes the [facility] [place] [address] Social History Tobacco Use Types Packs/Day Years [...] on filedocumented in this encounter Care Teams Health Care Marketing Specialist Relationship Specialty Start Date End Date Ari Latham MD PCP - General 11/15/16 07/07/22 documented as of this encounter
--- OUTSIDE RECORDS SUMMARY | 2025-01-19 17:39 | XMS_ITS | Encounter Summary ---
Author Organization [facility] Address [address] [place], [place] [phone] Phone Care Team Providers Care Assembly Member Name Role Phone Ari Latham MD Primary Care Provider Joseph cortes Encounter Details Date Type Department Care Team (Late st Contact Info) Description 03/20/2011 Documentation [facility] Family Medicine [address] [place], [place] [phone] Family Medicine, Physician On [place] [address] Social History Tobacco Use Types Packs/Day Years [...] on filedocumented in this encounter Care Teams Assembly Member Relationship Specialty Start Date End Date Ari Latham MD PCP - General 11/15/16 07/07/22 documented as of this encounter
--- OUTSIDE RECORDS SUMMARY | 2025-01-19 17:39 | XMS_ITS | Encounter Summary ---
Author Organization [facility] Address [address] [place], [place] [phone] Phone Care Team Providers Care Faculty Instructor Name Role Phone Ari Latham MD Primary Care Provider Joseph cortes Encounter Details Date Type Department Care Team (Late st Contact Info) Description 06/11/2012 Documentation [facility] [place] [address] [place], [place] [id number] Family Medicine, Physician [facility], 1928[facility] [place] [address] Social History Tobacco Use Types Packs/Day Years [...] on filedocumented in this encounter Care Teams Faculty Instructor Relationship Specialty Start Date End Date Ari Latham MD PCP - General 11/15/16 07/07/22 documented as of this encounter
--- OUTSIDE RECORDS SUMMARY | 2025-01-19 17:39 | XMS_ITS | Encounter Summary ---
Author Organization [facility] Address [address] [place], [place] [phone] Phone Care Team Providers Care Central Office Trouble Shooter Name Role Phone Ari Latham MD Primary Care Provider Joseph cortes Encounter Details Date Type Department Care Team (Late st Contact Info) Description 09/11/2010 Documentation [facility] Family Medicine [address] [place], [place] [phone] Family Medicine, Physician [facility] [place] [address] Social History Tobacco Use Types Packs/Day Years [...] on filedocumented in this encounter Care Teams Central Office Trouble Shooter Relationship Specialty Start Date End Date Ari Latham MD PCP - General 11/15/16 07/07/22 documented as of this encounter
--- OUTSIDE RECORDS SUMMARY | 2025-01-19 17:40 | XMS_ITS | Encounter Summary ---
Author Organization [facility] Address [address] [place] [address] Phone Care Team Providers Care Mortgage Specialist Name Role Phone Rosi Altamirano NP Primary Care Provider U Sofy Roberts Primary Care Provider [phone] Encounter Details Date Type Department Care Team (Late st Contact Info) Description 06/07/2021 Procedure Pass [address] [address] Social History Tobacco Use Types Packs/Day Years Used Date Smoking Tobacco: Former Smokeless Tobacco: Never Alcohol Use Standard Drinks/Week Comments Yes 0 (1 standard drink = 0.6 oz pur e alcohol) rare Comments Unknown Sex and Gender Information Value Date Recorded Sex Assigned at Female 02/26/2021 6:33 PM EST Legal Sex Female 4:48 PM EDT Gender Identity Female 02/26/2021 6:33 PM EST Sexual Orientation Straight 12/27/2021 1: 05 AM EDT documented as of this encounter Plan of Treatment Not on file documented as of this encounter Visit Diagnoses Not on filedocumented in this encounter Care Teams Mortgage Specialist Relationship Specialty Start Date End Date Rosi Altamirano NP PCP - General 01/04/21 12/25/21 Sofy Cardenas FNP [address] [place] [address] PCP - General 12/26/21 documented as of this encounter Additional Source Comments The information contained in this document represents components of the legal health record. It is not the complete legal health record.[facility]
--- OUTSIDE RECORDS SUMMARY | 2025-01-19 17:40 | XMS_ITS | Encounter Summary ---
Author Organization [email or web address] Address [address] [facility] 7 [place] [address] Care Team Providers Care Plastic Tool Maker Name Role Phone [place]Sof[place] tadeo HOME CARE MANAGER Primary Care Provider [phone] Paul Yu Unavailable Unavailable Encounter Details Date Type Department Care Team ([facility] st Contact Info) Description 02/12/[address] [facility] [address] [place], [place] [phone] [place] [facility] [address] [place], [place] [phone] Social History Tobacco Use Types Packs/Day Years [...] Description 02/14/2025 1:45 PM EST Office Visit [facility] [address] [place] [address] Sofy Cardenas FNP [address] [place] [address] documented as of this encounter Visit Diagnoses Not on filedocumented in this encounter Additional Health Concerns Assessment Noted Time PHQ-9 Depression Total Score: 1 12/17/19 23 1:45 PM EDT documented as of this encounter Care Teams Plastic Tool Maker Relationship Specialty Start Date End Date Sofy Cardenas FNP [address] [place] [address] PCP - General Family Medicine 11/30/21 Paul Yu FNP [address] [place] [address] Nurse Practitioner Family Medicine 02/26/23 documented as of this encounter
--- OUTSIDE RECORDS SUMMARY | 2025-01-19 17:40 | XMS_ITS | Encounter Summary ---
Author Organization [facility] Address [address] [facility] [address] [place] [address] Phone Care Team Providers Care Director Of Annual Giving Name Role Phone Sofy Cardenas Primary Care Provider [phone] Encounter Details Date Type Department Care Team (Late st Contact Info) Description 02/18/2022 Procedure Pass [facility] [address] [place] [address] Social History Tobacco Use Types Packs/Day Years Used Date Smoking Tobacco: Former Cigarettes 0.3 5 2 015 - 2020 Smokeless Tobacco: Never Alcohol Use Standard Drinks/Week Comments Not Currently 0 (1 standard drink = 0.6 oz pur e alcohol) rare Comments No Sex and Gender Information Value [...] in this encounter Care Teams Director Of Annual Giving Relationship Specialty Start Date End Date Sofy Cardenas FNP [address] [place] [address] PCP - General 12/26/21 documented as of this encounter Additional Source Comments The information contained in this document represents components of the legal health record. It is not the complete legal health record.[facility]
--- OUTSIDE RECORDS SUMMARY | 2025-01-19 17:40 | XMS_ITS | Encounter Summary ---
Author Organization [facility] Address [address] [place], [place] [phone] Phone Care Team Providers Care Borematic Machine Operator Name Role Phone Ari Latham MD Primary Care Provider Joseph cortes Encounter Details Date Type Department Care Team (Late st Contact Info) Description 11/08/2013 Documentation [facility] [place] Family Medicine [address] [place], [place] [phone] Family Medicine, Physician [facility] [place] [address] Social History Tobacco Use Types Packs/Day Years [...] on filedocumented in this encounter Care Teams Borematic Machine Operator Relationship Specialty Start Date End Date Ari Latham MD PCP - General 11/15/16 07/07/22 documented as of this encounter
--- OUTSIDE RECORDS SUMMARY | 2025-01-19 17:40 | XMS_ITS | Encounter Summary ---
Author Organization [facility] Address [address] [place] [address] Care Team Providers Care Dye Maker Name Role Phone [facility] Primary Care Provider [phone] Reason for Visit * Reason Onset Date Comments schedule an appt 08/29/2021 Encounter Details Date Type Department Care Team (Late st Contact Info) Description 08/29/2021 Telephone [employer] Central Scheduling Department [address] [place] [address] Telephone Intake, Staff schedule an appt Social [...] for Fabiola [facility] No dates are avaible for in person or TH Pleas give PT a call back at [phone] Fabiola is hearing impaired she uses a [...] on filedocumented in this encounter Care Teams Dye Maker Relationship Specialty Start Date End Date [facility] [address] [place] [address] PCP - General 08/12/22 documented as of this encounter
--- OUTSIDE RECORDS SUMMARY | 2025-01-19 17:40 | XMS_ITS | Encounter Summary ---
Author Organization [facility] Address [address] [place], [place] [phone] Phone Care Team Providers Care Firer Low Pressure Name Role Phone Ari Latham MD Primary Care Provider Joseph cortes Encounter Details Date Type Department Care Team (Late st Contact Info) Description 03/06/2010 Documentation [facility] [place] [address] [place], [place] [phone] Family Medicine, Physician [facility] [place] [address] Social History Tobacco Use Types Packs/Day Years [...] on filedocumented in this encounter Care Teams Firer Low Pressure Relationship Specialty Start Date End Date Ari Latham MD PCP - General 11/15/16 07/07/22 documented as of this encounter
--- OUTSIDE RECORDS SUMMARY | 2025-01-19 17:40 | XMS_ITS | Encounter Summary ---
Author Organization [facility] Address [address] [place], [place] [phone] Phone Care Team Providers Care Motor Teacher Name Role Phone Ari Latham MD Primary Care Provider Joseph cortes Encounter Details Date Type Department Care Team (Late st Contact Info) Description 11/08/2013 Documentation [facility] [place] Family Medicine [address] [place], [place] [phone] Family Medicine, Physician [facility] [place] [address] Social History Tobacco Use Types Packs/Day Years [...] on filedocumented in this encounter Care Teams Motor Teacher Relationship Specialty Start Date End Date Ari Latham MD PCP - General 11/15/16 07/07/22 documented as of this encounter
--- OUTSIDE RECORDS SUMMARY | 2025-01-19 17:40 | XMS_ITS | Encounter Summary ---
Author Organization [employer] Address [address] [place] [address] 7 [place] [address] Care Team Providers Care Tobacco Wrapping Machine Tender Name Role Phone [place] [facility] Primary Care Provider [phone] Paul Yu Unavailable Unavailable Reason for Visit * Reason Onset Date Comments Nurse Triage 04/15/2023 Encounter Details Date Type Department Care Team ([facility] st Contact Info) Description 04/15/2023 Telephone [facility] [address] [place], [place] [phone] [facility] [address] [place] [address] Nurse Triage Social History Tobacco Use Types [...] accepted this outcome Please contact pt at [phone] documented in this encounter Plan of Treatment Upcoming Encounters Date Type Department Care Team (Late st Contact Info) Description 02/14/2025 1:45 PM EST Office Visit [facility] [address] [place] [address] Sofy Cardenas FNP [address] [place] [address] documented as of this encounter Visit Diagnoses Not on filedocumented in this encounter Additional Health Concerns Assessment Noted Time PHQ-9 Depression Total Score: 6 03/06/20 23 2:58 PM EST documented as of this encounter Care Teams Tobacco Wrapping Machine Tender Relationship Specialty Start Date End Date Sofy Cardenas FNP [address] [place] [address] PCP - General Family Medicine 11/30/21 Paul Yu FNP [address] [place] [address] Nurse Practitioner Family Medicine 02/26/23 documented as of this encounter
--- OUTSIDE RECORDS SUMMARY | 2025-01-19 17:40 | XMS_ITS | Encounter Summary ---
Author Organization [employer] Address [address] [place] [address] 7 [place] [address] Care Team Providers Care Baseball Umpire For Little League Name Role Phone [place] [facility] Primary Care Provider [phone] Paul Yu Unavailable Unavailable Reason for Visit * Reason Onset Date Comments triage 07/05/2022 Encounter Details Date Type Department Care Team ([facility] st Contact Info) Description 07/05/2022 Telephone [facility] MEDICINE [address] [place], [place] [phone] [facility] [address] [place] [address] triage Social History Tobacco Use Types Packs/Day [...] at time of call. Advised to call [facility] after ED eval for follow up and [...] Description 02/14/2025 1:45 PM EST Office Visit [facility] MEDICINE [address] [place] [address] Sofy Cardenas FNP [address] [place] [address] documented as of this encounter Visit Diagnoses Not on filedocumented in this encounter Additional Health Concerns Assessment Noted Time PHQ-9 Depression Total Score: 5 07/05/19 23 9:22 AM EDT documented as of this encounter Care Teams Baseball Umpire [employer] Relationship Specialty Start Date End Date Sofy Cardenas FNP [address] [place] [address] PCP - General Family Medicine 11/30/21 Paul Yu FNP [address] [place] [address] Nurse Practitioner Family Medicine 02/26/23 documented as of this encounter
--- OUTSIDE RECORDS SUMMARY | 2025-01-19 17:40 | XMS_ITS | Encounter Summary ---
Author Organization [facility] Address [address] [place] [address] Phone Care Team Providers Care Rubber Flap Tuber Machine Operator Name Role Phone Rosi Altamirano NP Primary Care Provider [facility] Sofy Cardenas Primary Care Provider [phone] Encounter Details Date Type Department Care Team (Late st Contact Info) Description 07/16/2021 Procedure Pass [facility]oscopy Admitting Dept Virtual Department [address] [place] [address] Social History Tobacco Use Types Packs/Day Years [...] on filedocumented in this encounter Care Teams Rubber Flap Tuber Machine Operator Relationship Specialty Start Date End Date Rosi Altamirano NP PCP - General 01/04/21 12/25/21 Sofy Cardenas FNP [address] [place] [address] PCP - General 12/26/21 documented as of this encounter Additional Source Comments The information contained in this document represents components of the legal health record. It is not the complete legal health record.[facility]
--- OUTSIDE RECORDS SUMMARY | 2025-01-19 17:40 | XMS_ITS | Encounter Summary ---
Author Organization [facility] Address [address] [place] [address] Care Team Providers Care Qc Scientist Name Role Phone Sofy Cardenas Primary Care Provider [phone] Encounter Details Date Type Department Care Team (Late st Contact Info) Description 10/29/2021 Orders Only [facility] Nuclear Medicine [address] [place], [place] [phone] Casey Lomeli MD [address] [place], [place] [phone] Social History Tobacco Use Types Packs/Day Years [...] on filedocumented in this encounter Care Teams Qc Scientist Relationship Specialty Start Date End Date Sofy Cardenas [address] [place] [address] PCP - General 08/12/22 documented as of this encounter
--- OUTSIDE RECORDS SUMMARY | 2025-01-19 17:40 | XMS_ITS | Encounter Summary ---
Author Organization [facility] Address [address] [place], [place] [phone] Phone Care Team Providers Care Risk And Compliance Analytics Director Name Role Phone Ari Latham MD Primary Care Provider Joseph cortes Encounter Details Date Type Department Care Team (Late st Contact Info) Description 09/05/2009 Documentation [facility] Family Medicine [address] [place], [place] [phone] Family Medicine, Physician [facility] [place] [address] Social History Tobacco Use Types Packs/Day Years [...] on filedocumented in this encounter Care Teams Risk And Compliance Analytics Director Relationship Specialty Start Date End Date Ari Latham MD PCP - General 11/15/16 07/07/22 documented as of this encounter
--- OUTSIDE RECORDS SUMMARY | 2025-01-19 17:40 | XMS_ITS | Encounter Summary ---
Author Organization [facility] Address [address] [place] [address] Phone Care Team Providers Care Rim Roller Setter Name Role Phone Rosi Altamirano PRESSURE TANK OPERATOR Primary Care Provider chung RonaldSofy tadeo Adama HOME COMPANION Primary Care Provider [phone] Reason for Referral * MRI/CAT Scan - Closed Specialty Diagnoses / Procedures Referred By Neri murdock Referred To Contact Radiology Diagnoses Liver hemangioma Procedures MRI Abdomen Sera Treviño PA-C Phone: tel: fax: [email or web address] Referral ID Status Reason Start Date Expiration Date Visits Re quested Visits Authorized [id number] Closed 06/07/2021 06/07/2022 1 1 Encounter Details Date Type Department Care Team (Latest Contact Info) Description 06/07/2021 Transcribe Orders Virtual Department [address] [place] [address] Sera Treviño PA-C [address] [place] [address] [email or web address] Liver hemangioma (Primary Dx) Social History Tobacco Use Types [...] documented as of this encounter Results * MRI ABDOMEN WITH AND WITHOUT CONTRAST (07/29/2021 1:34 PM EDT) Anatomical Region Laterality Modality Abdomen Magnetic Resonan ce 07/29/2021 1:48 PM EDT Impressions 07/29/2021 2:05 PM EDT 1.Stable 1 cm right hepatic lobe hemangioma. 2.Cholelithiasis. 3.Trace amount of fluid adjacent to the left adnexa. Narrative 07/29/2021 2:05 PM EDT MRI ABDOMEN WITH AND WITHOUT CONTRAST TECHNIQUE: Multiplanar MR imaging of the abdomen was performed using T1, T2, fat saturated, and diffusion weighted techniques. Dynamic multiphase imaging was also performed after administration of an intravenous gadolinium contrast agent. COMPARISON: Ultrasound dated 02/27/2021. Abdominal CT dated 02/26/2021 FINDINGS: Patient motion artifact mildly degrades several sequences. Within this confine: Lower Chest: Normal. No effusions. Liver: Stable postoperative changes of partial resection of the inferior right hepatic lobe. There is a 1 cm T2 bright lesion in the right hepatic lobe (segment 8, series 6, image 15) with centripetal enhancement, consistent with benign hemangioma. No other focal lesions. Biliary: There is a gallstone. No significant gallbladder wall thickening. No pericholecystic fluid No biliary ductal dilatation. Spleen: Normal. No splenomegaly or focal lesions. Pancreas: Normal. No masses or ductal dilatation. Adrenal Glands: Normal. No nodules. Kidneys/Ureters: Normal. No solid masses or hydronephrosis. Bowel: Normal. No dilatation or wall thickening. Peritoneum/Retroperitoneum: Normal. No masses or drainable ascites. Trace amount of fluid adjacent to the left adnexa and trace amount of fluid in the cul-de-sac, partially imaged. Lymph Nodes: Normal. No lymphadenopathy. Vessels: Normal. No abdominal aortic aneurysm. Bones/Soft Tissues: Normal. No focal marrow replacing lesions. Procedure Note Leni Reis MD - 07/29/2021 MRI ABDOMEN WITH AND WITHOUT CONTRAST TECHNIQUE: Multiplanar MR imaging of the abdomen was performed using T1,T2, fat saturated, and diffusion weighted techniques. Dynamic multiphaseimaging was also performed after administration of an intravenousgadolinium contrast agent. COMPARISON: Ultrasound dated 02/27/2021. Abdominal CT dated 02/26/2021 FINDINGS: Patient motion artifact mildly degrades several sequences. Within thisconfine: Lower Chest: Normal. No effusions. Liver: Stable postoperative changes of partial resection of the inferiorright hepatic lobe. There is a 1 cm T2 bright lesion in the right hepaticlobe (segment 8, series 6, image 15) with centripetal enhancement,consistent with benign hemangioma. No other focal lesions. Biliary: There is a gallstone. No significant gallbladder wall thickening.No pericholecystic fluid No biliary ductal dilatation. Spleen: Normal. No splenomegaly or focal lesions. Pancreas: Normal. No masses or ductal dilatation. Adrenal Glands: Normal. No nodules. Kidneys/Ureters: Normal. No solid masses or hydronephrosis. Bowel: Normal. No dilatation or wall thickening. Peritoneum/Retroperitoneum: Normal. No masses or drainable ascites. Traceamount of fluid adjacent to the left adnexa and trace amount of fluid inthe cul-de-sac, partially imaged. Lymph Nodes: Normal. No lymphadenopathy. Vessels: Normal. No abdominal aortic aneurysm. Bones/Soft Tissues: Normal. No focal marrow replacing lesions. IMPRESSION: 1.Stable 1 cm right hepatic lobe hemangioma. 2.Cholelithiasis. 3.Trace amount of fluid adjacent to the left adnexa. Sera JONES MR ABDOMEN Final Result documented in this encounter Visit Diagnoses Diagnosis Liver hemangioma- Primary Liver hemangioma documented in this encounter Care Teams Rim Roller Setter Relationship Specialty Start Date End Date Rosi Altamirano NP PCP - General 01/04/21 12/25/21 ManSofy FNP [address] [place] [address] PCP - General 12/26/21 documented as of this encounter Additional Source Comments The information contained in this document represents components of the legal health record. It is not the complete legal health record.[facility]
--- OUTSIDE RECORDS SUMMARY | 2025-01-19 17:40 | XMS_ITS | Encounter Summary ---
Author Organization [facility] Address [address] [place], [place] [phone] Phone Care Team Providers Care Paratransit Driver Name Role Phone Ari Latham MD Primary Care Provider Joseph cortes Encounter Details Date Type Department Care Team (Late st Contact Info) Description 08/09/2013 Documentation [facility] Family Medicine [address] [place], [place] [phone] Family Medicine, Physician [facility] [place] [address] Social History Tobacco Use Types Packs/Day Years [...] on filedocumented in this encounter Care Teams Paratransit Driver Relationship Specialty Start Date End Date Air Latham MD PCP - General 11/15/16 07/07/22 documented as of this encounter
--- OUTSIDE RECORDS SUMMARY | 2025-01-19 17:40 | XMS_ITS | Encounter Summary ---
Author Organization [facility] Address [address] [place] [address] 7 [place] [address] Care Team Providers Care Student Development Specialist Name Role Phone [place] Sofy [facility] Primary Care Provider [phone] Paul Yu Unavailable Unavailable Reason for Visit * Reason Comments Med Refill Encounter Details Date Type Department Care Team (Late st Contact Info) Description 12/11/2022 Refill [facility] [address] [place], [place] [phone] Yaima Shah FNP [address] [place] [address] Social History Tobacco Use Types Packs/Day Years [...] Description 02/14/2025 1:45 PM EST Office Visit [facility] [address] [place] [address] Sofy Cardenas [facility] [address] [place] [address] documented as of this encounter Visit Diagnoses Not on filedocumented in this encounter Additional Health Concerns Assessment Noted Time PHQ-9 Depression Total Score: 3 09/27/19 23 9:18 AM EDT documented as of this encounter Care Teams Student Development Specialist Relationship Specialty Start Date End Date Sofy Cardenas FNP [address] [place] [address] PCP - General Family Medicine 11/30/21 Paul Yu FNP [address] [place] [address] Nurse Practitioner Family Medicine 02/26/23 documented as of this encounter
--- OUTSIDE RECORDS SUMMARY | 2025-01-19 17:40 | XMS_ITS | Encounter Summary ---
Author Organization [employer] Address [address] [place] [address] Care Team Providers Care Irrigation Teacher Name Role Phone [place] [facility] Primary Care Provider [phone] Paul Yu Unavailable Unavailable Reason for Visit * Reason Onset Date Comments Appointment Request 11/08/2022 Encounter Details Date Type Department Care Team ([facility] st Contact Info) Description 11/08/2022 Telephone [facility] MEDICINE [address] [place], [place] [phone] [facility] [address] [place] [address] Appointment Request Social History Tobacco Use Types [...] and understood,. Advised to give call to [facility] if any questions or concerns. * Telephone Encounter - Ade Antoni - 11/08/2022 1:58 PM EDT Tc from patient requesting a f/u appt, due to getting her gall bladder removed on 11/07/22 at [facility]. documented in this encounter Plan of Treatment Upcoming Encounters Date Type Department Care Team (Late st Contact Info) Description 02/14/2025 1:45 PM EST Office Visit [facility] [address] [place] [address] Sofy Cardenas FNP [address] [place] [address] documented as of this encounter Visit Diagnoses Not on filedocumented in this encounter Additional Health Concerns Assessment Noted Time PHQ-9 Depression Total Score: 3 09/27/19 23 9:18 AM EDT documented as of this encounter Care Teams Irrigation Teacher Relationship Specialty Start Date End Date Sofy Cardenas FNP [address] [place] [id number] PCP - General Family Medicine 11/30/21 Paul Yu FNP [address] [place] [address] Nurse Practitioner Family Medicine 02/26/23 documented as of this encounter
--- OUTSIDE RECORDS SUMMARY | 2025-01-19 17:40 | XMS_ITS | Encounter Summary ---
Author Organization [facility] Address [address] [place], [place] [phone] Phone Care Team Providers Care Industrial Plant Custodian Name Role Phone Ari Latham MD Primary Care Provider Joseph cortes Encounter Details Date Type Department Care Team (Late st Contact Info) Description 03/06/2010 Documentation [facility] Family Medicine [address] [place], [place] [phone] Family Medicine, Physician [place] [address] Social History Tobacco Use Types Packs/Day Years [...] on filedocumented in this encounter Care Teams Industrial Plant Custodian Relationship Specialty Start Date End Date Ari Latham MD PCP - General 11/15/16 07/07/22 documented as of this encounter
--- OUTSIDE RECORDS SUMMARY | 2025-01-19 17:40 | XMS_ITS | Encounter Summary ---
Author Organization [facility] Address [address] [place], [place] [phone] Phone Care Team Providers Care Field Automobile Adjuster Name Role Phone Ari Latham MD Primary Care Provider Joseph cortes Encounter Details Date Type Department Care Team (Late st Contact Info) Description 09/02/2013 Documentation [facility] Family Medicine [address] [place], [place] [phone] Family Medicine, Physician [facility] [place] [address] Social History Tobacco Use Types Packs/Day Years [...] on filedocumented in this encounter Care Teams Field Automobile Adjuster Relationship Specialty Start Date End Date Ari Latham MD PCP - General 11/15/16 07/07/22 documented as of this encounter
--- OUTSIDE RECORDS SUMMARY | 2025-01-19 17:40 | XMS_ITS | Clinical Summary ---
Author Organization [facility] Address [address] [place] [address] Phone Care Team Providers Care Flake Miller Helper Name Role Phone Sofy Cardenas HECTOR Primary Care Provider [phone] Allergies Active Allergy Reactions Criticality Noted Date Comments Azithromycin Unknown 01/10/2015 Patient unsure - discovered as a child. Cefuroxime 12/01/2014 vomiting vomiting Celecoxib Nausea and/or Vomiting 01/10/2015 Clonidine Nausea and/or Vomiting 01/10/2015 mentioned Dexlansoprazole Nausea and/or Vomiting 01/10/2015 Erythromycin Unknown 01/05/2015 Patient unsure - discovered as a child. Grass Pollen-Red Top, Standard 04/18/2022 Iodine (Bulk) Anxiety Low 01/13/2015 Latex Anaphylaxis High 07/15/2023 Breathing issues Methylphenidate Nausea and/or Vomiting 01/10/2015 Also hives. Nortriptyline 01/05/2015 hives hives Pantoprazole Unknown 01/13/2015 Patient unsure. Penicillins 12/01/2014 swelling swelling Polymyxin B 07/28/2020 Raspberry Hives 01/13/2015 Shellfish Containing Products Anaphylaxis High 01/13/2015 Medications * This document contains information received from the source organization and may not represent a complete record from that organization. ondansetron (ZOFRAN-ODT) 8 MG disintegrating tablet Take 1 tablet (8 mg total) by mouth every 8 (eight) hours as needed for nausea. 25 tablet 1 12/28/19 Active Additional Information Patient not taking.Reported on 07/15/2023 gabapentin (NEURONTIN) 600 MG tablet Take 600 mg by mouth 3 (three) times a day. 01/09/20 22 Active acetaminophen (TYLENOL) 325 mg tablet Take 2 tablets (650 mg total) by mouth every 4 (four) hours as needed. 0 02/19/20 22 Active Additional Information Patient not taking.Reported on 04/15/2023 STRATTERA 18 mg capsuleIndications :attention-deficit hyperactivity disorder 25 mg 2 (two) times a day. Indications: attention deficit disorder with hyperactivity 05/23/19 23 Active calcium carbonate 1,250 mg (500 mg elemental) capsule Take 1,250 mg by mouth 2 (two) times a day with meals. Active lurasidone (LATUDA) 20 mg tablet Take 60 mg by mouth every morning. 08/16/19 23 Active topiramate (TOPAMAX) 25 MG tablet Take 1 tablet by mouth 2 (two) times a day. 03/13/20 23 Active azelastine (ASTELIN) 137 mcg (0.1 %) nasal spray 2 sprays by Nasal route 2 (two) times a day. Use in each nostril as directed; may cause drowsiness, if so just use at night (use saline spray before) 30 mL 12 04/15/19 24 Active cetirizine (ZYRTEC) 10 MG tablet Take 1 tablet (10 mg total) by mouth daily. 90 tablet 1 04/15/19 24 Active Additional Information Patient not taking.Reported on 07/22/2023 baclofen (LIORESAL) 10 MG tablet Take 10 mg by mouth. 08/31/19 23 Active SUMAtriptan (IMITREX) 50 MG tablet 08/15/19 23 Active clomiPHENE citrate (CLOMID) 50 mg tabletIndications: Irregular menses,Female infertility Take 1 tablet (50 mg total) by mouth daily. Take from day 3-7 of the menses 5 tablet 2 04/22/19 24 Active Additional Information Patient not taking.Reported on 07/15/2023 VENTOLIN HFA 90 mcg/actuation inhaler INHALE 2 PUFFS BY MOUTH EVERY 4 TO 6 HOURS NEEDED FOR WHEEZING OR SHORTNESS OF BREATH 05/28/19 24 Active ferrous sulfate 325 mg (65 mg stockbridge iron) tablet Take 325 mg by mouth daily with breakfast. Active celecoxib (CELEBREX) 200 MG capsule Take 1 capsule (200 mg total) by mouth 2 (two) times a day for 12 days. 24 capsule 07/22/19 24 Active ondansetron (ZOFRAN-ODT) 4 MG disintegrating tablet Take 1 tablet (4 mg total) by mouth every 8 (eight) hours as needed for nausea. 12 tablet 3 07/22/19 24 Active oxyCODONE 5 MG immediate release tablet Take 1 tablet (5 mg total) by mouth every 6 (six) hours as needed (pain not controlled by tylenol and celecoxib). ok to crush; partial fill ok 25 tablet 07/22/19 24 Active Additional Information Patient not taking.Reported on 08/20/2023 Active Problems Problem Noted Date Diagnosed Date Anemia 07/23/2022 Overview (04/22/2023): Last Assessment & Plan: Unknown, unclear if she had GI bleeding. Repeat labs including hemoccult and iron studies. encouraged increase water intake FU in 1 week. Syncope 07/23/2022 Overview (04/22/2023): Last Assessment & Plan: Seen by neurology, didn't seem to be a seizure episode. Refer to neurology (Dr. Shahid) for further evaluation of neuropathy due to paresthesias on legs. Repeat CBC due to anemia and bring medications next week for further evaluation and med reconciliation. History of recurrent spontan eous , not currently 06/26/2022 Overview (09/21/2022): Normal SHG. Normal HgbA1C, FSH, TSH, LAC, PT gene mutation, Factor V, Mood disorder 05/09/2022 Overview (04/22/2023): Last Assessment & Plan: Marked irritability with [...] She will continue with her therapist at [facility]. F/U 6 weeks. She agrees with the plan. Miscarriage 12/24/2021 Overview (12/24/2021): AUDREY MONTERROSO OB-CMI score: 4 [12/24/2021] Group PN care? * Rh * GC/Chlam * PAP * Tdap * Flu * COVID-19* Hgb * GTT * 28 wk Repeat RPR * GBS * PPBC * screening * Assessment & Plan (01/27/2022 4:41 PM EDT): The patient is a 26 y.o. who [...] answered. Miscarried on 12/28/21 Was seen at [facility]. US report in media This is her 3rd SAB. She will like to see an MD for fertility consult Fibromyalgia 12/24/2021 Overview (12/24/2021): Off meds since aware of PG Mild episode of recurrent major depressive disor dany 12/24/2021 Overview (12/24/2021): Has weekly therapy that is very helpful--feels she is stable Hearing problem of both ears 12/24/2021 Chronic abdominal pain 10/29/2021 Overview (06/26/2022): Off meds since aware of PG Bilateral hearing loss 10/29/2021 Elevated lipase 01/09/2021 Cholelithiasis with acute cholecystitis without obstruction 01/09/2021 Anxiety 01/04/2021 Asthma 01/04/2021 Major depressive disorder 01/04/2021 Overview (06/26/2022): [facility] Tobacco use 01/04/2021 Complex renal cyst 09/22/2020 Seizure 09/10/2020 Migraine without aura 07/31/2020 Urinary incontinence 07/31/2020 Learning disorder 01/10/2015 Overview (06/26/2022): Expressive language disorder Expressive language disorder Chiari malformation type I 01/10/2015 Overview (06/26/2022): MRI 2008 MRI 2008 MRI 2008 MRI 2008 Focal nodular hyperplasia of liver 01/10/2015 Overview (06/26/2022): Wedge resection of liver 05/2012 Wedge resection of liver 05/2012 Wedge resection of liver 05/2012 Wedge resection of liver 05/2012 Posttraumatic stress disorder 01/05/2015 Seasonal allergies 01/05/2015 Morbid obesity 12/21/2013 Attention deficit hyperactivity disorder (ADHD) 06/15/2011 Gastroesophageal reflux disease 06/15/2011 Overview (12/27/2021): Admitted to [facility] 12/26/2021 for IV fluids, zofran, and phenergan Resolved Problems Problem Noted Date Diagnosed Date Resolved Date Hyperemesis gravidarum 12/27/202104/22 Overview (12/27/2021): Admitted to [facility] 12/26 for IV hydration and IV zofran and phenergan Subchorionic hemorrhage of p lacenta in first trimester 12/27/2021 09/21/2022 Obesity in 12/24/2021 023 Overview (12/24/2021): Obesity in (BMI >30) BMI at Intake [...] indicated * PP lovenox according to guidelines Calculus of gallbladder with acute on chronic cholecystitis without obstruction 01/09/20212023 Overview (12/27/2021): Admitted to [facility] 12/26/2021 for IV fluids, zofran, and phenergan Immunizations Immunization Administration Dates Next Due COVID-19 (Pre-01/27) Pfizer Vaccine, mRNA, radha-sucrose, PF 11/21/2021 DTP 07/06/1995, 5,06/04/1994,03/06 [id number]-[id number]-ZKB 05/07/1995, 5,06/04/1994,03/06 Dtap, 5 Pertussis Antigens 08/04/1998 HPV,quadrivalent 08/06/2007,03/25/2007, 7 Hepatitis A, Adult 05/17/2021,10/05/2014 Hepatitis B 10/04/1994,03/06/1994,01/04/1994 Hib,PRP-T 05/07/1995, 5,06/04/1994,03/06 INFLUENZA, SPLIT VIRUS, TRIV ALENT W/ PRESERVATIVE IM 01/24/2012,02/02/2009 IPV 08/04/1998, 5,06/04/1994,03/06 Influenza Quadrivalent Prese rvative Free IM 03/08/2013 Influenza Quadrivalent w/ Pr eservative IM 03/07/2014 Influenza Split (Incl. Purif ied Surface Antigen) 02/11/2011 Influenza quadrivalent nasal 01/25/2010 MMR 02/04/1998,05/07/1995 Meningococcal MCV4P 09/22/2020,01/23/2007 Pneumococcal conjugate PCV20 11/21/2021 Polio - OPV 08/04/1998, 5,06/04/1994,03/06 Tdap 11/13/2017,02/20/2012,01/23/2006 Varicella 01/25/2010,08/04/1998 Family History Medical History Relation Comments Asthma Father Diabetes Maternal Grandmother Hearing loss Maternal Grandmother Migraines Mother Rheumatoid arthritis Mother Thyroid disease Sister Cancer Neg Hx Relation Status Comments Father Maternal Grandmother Mother Sister Social History Tobacco Use Types Packs/Day Years Used Date Smoking Tobacco: Former Cigarettes 0.3 5 0 04/07/2014 - 04/07/2019 Smokeless Tobacco: Never Tobacco Cessation:Counseling Given: Not Answered Alcohol Use Standard Drinks/Week Comments Yes 0 (1 standard drink = 0.6 oz pur e alcohol) rare Education Answer Date Recorded Are you interested in more education? Not on angela e 08/02/2022 Are you concerned about learning? Not on file 08/02/2022 No 08/02/2022 No 08/02/2022 Digital Access Answer Date Recorded No 08/27/2022 No 08/27/2022 Reliable internet access at home? Not on file 08/27/2022 Device with a working camera? Not on file Intimate Partner Violence Answer Date R ecorded Are you denied basic needs s uch as food, clothing, or medical care? No 09/28/2023 In the past 12 months have y ou been in a relationship with a person who hurts, threatens, or tries to control you? No 09/28/2023 Are you denied basic needs s uch as food, clothing, or medical care? No 09/28/2023 In the past 12 months have y ou been in a relationship with a person who hurts, threatens, or tries to control you? No 09/28/2023 Comments No Sex and Gender Information Value Date Recorded Sex Assigned at Female 02/26/2021 6:33 PM EST Legal Sex Female 4:48 PM EDT Gender Identity Female 02/26/2021 6:33 PM EST Sexual Orientation Straight 12/27/2021 1: 05 AM EDT Last Filed Vital Signs Vital Sign Reading Time Taken Comments Blood Pressure 130/83 09/28/2023 3:10 PM EDT Pulse 80 09/28/2023 3:10 PM EDT Temperature 36.8 C (98.2 F) 09/28/2023 3:10 PM EDT Respiratory Rate 18 09/28/2023 3:10 PM EDT Oxygen Saturation 98% 09/28/2023 3:10 PM EDT Inhaled Oxygen Concentration - - Weight 97.5 kg (215 lb) 08/19/2023 12:45 PM EDT Height 149.9 cm (4' 11 ) 08/19/2023 12:45 PM EDT Body Mass Index 43.42 08/19/2023 12:45 PM EDT Plan of Treatment Health Maintenance Due Date Last Done Comments DEPRESSION SCREENING 2005 HEPATITIS C SCREENING 12/07/2011 HIV ONE-TIME SCREENING (18-65 YEARS) 12/07/2011 INFLUENZA VACCINE (#1) 2024 4, 03/08/2013, 01/24/2012, Additional history exists COVID-19 VACCINE ( season) 2024 11/19/2022, 11/21/2021, 08/17/2020, Additional history exists PAP SMEAR 02/19/2026 02/19/2023 Adult Td,Tdap Booster 11/14/2027 11/13/2017 , 02/20/2012, 01/23/2006 SMOKING STATUS SCREENING (Every 5 Years) 02/17/2029 02/18/2024 HIB VACCINES Completed 05/07/1995, 04/09, 08/04/1994, Additional history exists MENINGOCOCCAL VACCINES (ACWY) Aged Out 09/22/2020, 01/23/2007 No longer eligibl e based on patient's age to complete this topic HEPATITIS A VACCINES Aged Out 05/17/2021, 10/06/19 15 No longer eligible based on patient's age to complete this topic PNEUMOCOCCAL VACCINES (0-49 years) Completed 11/21/2021 MENINGOCOCCAL VACCINES (B) Aged Out N o longer eligible based on patient's age to complete this topic Medical Devices Implanted Type Area Automotive Window Tinter Device Identifier Shelf Expiration Date Model / Serial / Lot Implant Cochlear 3d Ultra [facility] [id number] Implanted:Qty: 1 on 02/18/2022 by Ari Loco MD, PhD at [facility] Right: Ear [employer] 10/04/2024 CI-1601-04 / [id number] / Implant Cochlear 3d Ultra [facility] [id number] Implanted:Qty: 1 on 07/15/2022 by Ari Loco MD, PhD at [facility] Ear Left: Ear [employer] 11/04/2024 CI-1601-04 / [id number] / [id number] [place] [address] [place] [address] C3 ACO C3 ACO C3 ACO C3 ACO C3 ACO C3 ACO C3 ACO C3 ACO C3 ACO Advance Directives For more information, please contact: [phone] (9AM - 5PM [facility], Friday-Friday) Documents on File Type Date Recorded Patient Chiller Operator Expl anation Healthcare Proxy 02/19/2022 3:11 PM Care Teams Flake Miller Helper Relationship Specialty Start Date End Date Sofy Cardenas FNP [address] [place] [id number] PCP - General 12/26/21 Additional Source Comments The information contained in this document represents components of the legal health record. It is not the complete legal health record.[facility]
--- OUTSIDE RECORDS SUMMARY | 2025-01-19 17:40 | XMS_ITS | Encounter Summary ---
Author Organization [facility] Address [address] [place] [address] [place] [address] Phone Care Team Providers Care Ski Lift Attendant Name Role Phone Rosi Altamirano CERTIFIED NURSE OPERATING ROOM Primary Care Provider Sofy Roberts ORNAMENTAL IRON WORKER HELPER Primary Care Provider [phone] Encounter Details Date Type Department Care Team (Late st Contact Info) Description 02/27/2021 Ancillary Orders [facility] [address] [place] [address] Kathy Carlisle PA-C [address] [place] [address] [email or web address] RUQ pain Social History Tobacco Use Types Packs/Day Years [...] documented as of this encounter Results * US ABDOMEN LIMITED SINGLE ORGAN (02/27/2021 11:26 AM EST) Anatomical Region Laterality Modality Abdomen Ultrasound 02/27/2021 11:2 8 AM EST Impressions 02/27/2021 11:32 AM EST Single 8 mm gallstone again demonstrated within the gallbladder lumen. No evidence of acute cholecystitis or biliary ductal dilatation. Narrative 02/27/2021 11:32 AM EST US ABDOMEN LIMITED SINGLE ORGAN HISTORY: Right upper quadrant pain, nausea, cholelithiasis. TECHNIQUE: US Abdominal limited right upper quadrant. COMPARISON: CT abdomen 02/26/2021, abdominal ultrasound 01/04/2021. FINDINGS: Limited study performed. The gallbladder and common duct are evaluated. Gallbladder: An 8 mm mobile calculus is again demonstrated within the gallbladder lumen. This appears essentially stable from 01/04/2021. The gallbladder otherwise appears normal. No sonographic Raygoza sign or pericholecystic fluid. Biliary: No evidence of biliary ductal dilatation. The common bile duct measures 3 mm. Procedure Note Toi Anderson MD - 02/27/2021 US ABDOMEN LIMITED SINGLE ORGAN HISTORY: Right upper quadrant pain, nausea, cholelithiasis. TECHNIQUE: US Abdominal limited right upper quadrant. COMPARISON: CT abdomen 02/26/2021, abdominal ultrasound 01/04/2021. FINDINGS: Limited study performed. The gallbladder and common duct are evaluated. Gallbladder: An 8 mm mobile calculus is again demonstrated within thegallbladder lumen. This appears essentially stable from 01/04/2021. Thegallbladder otherwise appears normal. No sonographic Raygoza sign orpericholecystic fluid. Biliary: No evidence of biliary ductal dilatation. The common bile duct measures 3 mm. IMPRESSION: Single 8 mm gallstone again demonstrated within the gallbladder lumen. Noevidence of acute cholecystitis or biliary ductal dilatation. Kathy Carlisle PA-C IMG US ABDOMEN Final R esult documented in this encounter Visit Diagnoses Diagnosis RUQ pain Abdominal pain, right upper quadrant RUQ pain Abdominal pain, right upper quadrant documented in this encounter Care Teams Ski Lift Attendant Relationship Specialty Start Date End Date Rosi Altamirano NP PCP - General 01/04/21 12/25/21 Sofy Cardenas FNP [address] [place] [id number] PCP - General 12/26/21 documented as of this encounter Additional Source Comments The information contained in this document represents components of the legal health record. It is not the complete legal health record.[facility]
--- OUTSIDE RECORDS SUMMARY | 2025-01-19 17:40 | XMS_ITS | Encounter Summary ---
Author Organization [facility] Address [address] [place], [place] [address] Phone Care Team Providers Care Integrated Logistics Programs Director Name Role Phone Ari Latham MD Primary Care Provider Joseph cortes Encounter Details Date Type Department Care Team (Late st Contact Info) Description 09/24/2013 Documentation [facility] Family Medicine [address] [place], [place] [phone] Family Medicine, Physician [facility] [place] [address] Social History Tobacco Use Types Packs/Day Years [...] on filedocumented in this encounter Care Teams Integrated Logistics Programs Director Relationship Specialty Start Date End Date Air Latham MD PCP - General 11/15/16 07/07/22 documented as of this encounter
--- OUTSIDE RECORDS SUMMARY | 2025-01-19 17:40 | XMS_ITS | Encounter Summary ---
Author Organization [facility] Address [address] [place], [place] [phone] Phone Care Team Providers Care Senior Lead Software Engineer Name Role Phone Ari Latham MD Primary Care Provider Joseph cortes Encounter Details Date Type Department Care Team (Late st Contact Info) Description 02/24/2014 Documentation [facility] Family Medicine [address] [place], [place] [phone] Family Medicine, [place] [address] Social History Tobacco Use Types Packs/Day Years [...] filedocumented in this encounter Care Teams Senior Lead Software Engineer Relationship Specialty Start Date End Date Ari Latham MD PCP - General 11/15/16 07/07/22 documented as of this encounter
--- OUTSIDE RECORDS SUMMARY | 2025-01-19 17:40 | XMS_ITS | Encounter Summary ---
Author Organization [facility] Address [address] [place], [place] [phone] Phone Care Team Providers Care Breakfast Supervisor Name Role Phone Ari Latham MD Primary Care Provider Joseph cortes Encounter Details Date Type Department Care Team (Late st Contact Info) Description 09/10/2013 Documentation [facility] Family Medicine [address] [place], [place] [phone] Family Medicine, Physician [facility] [place] [address] Social History Tobacco Use Types Packs/Day Years [...] on filedocumented in this encounter Care Teams Breakfast Supervisor Relationship Specialty Start Date End Date Ari Latham MD PCP - General 11/15/16 07/07/22 documented as of this encounter
--- OUTSIDE RECORDS SUMMARY | 2025-01-19 17:40 | XMS_ITS | Encounter Summary ---
Author Organization [facility] Address [address] [place], [place] [phone] Phone Care Team Providers Care Media Assistant Name Role Phone Ari Latham MD Primary Care Provider Joseph cortes Encounter Details Date Type Department Care Team (Late st Contact Info) Description 03/06/2010 Documentation [facility] Family Medicine [address] [place], [place] [phone] Family Medicine, Physician [facility] [place] [address] Social History Tobacco Use Types Packs/Day Years [...] on filedocumented in this encounter Care Teams Media Assistant Relationship Specialty Start Date End Date Ari Latham MD PCP - General 11/15/16 07/07/22 documented as of this encounter
--- OUTSIDE RECORDS SUMMARY | 2025-01-19 17:40 | XMS_ITS | Encounter Summary ---
Author Organization [facility] Address [address] [place] [address] [place] [address] Phone Care Team Providers Care Crystalizer Tender Name Role Phone Rosi Altamirano SERVICES MGR Primary Care Provider U Sofy Roberts ASSOCIATE PROFESSOR OF FORESTRY Primary Care Provider [phone] Encounter Details Date Type Department Care Team (Late st Contact Info) Description 02/26/2021 Procedure Pass [facility], Ct Scan - [address] [address] Social History Tobacco Use Types Packs/Day Years [...] AM EDT documented as of this encounter Functional Status * Calculated C-SSRS Risk Score (Lifetime/Recent) Answer Date of Assessment Author No Risk Indicated 02/26/2021 6:33 PM Sera Lawson, RN * [place] Suicide Severity Rating Scale (Screener/Recent Self-Report) Question Answer Date of Assessment Author 1. Wish to be (Past 1 Month) No 021 6:33 PM Sera Valdivia, RN 2. Non-Specific Active Suici amaris Thoughts (Past 1 Month) No 02/26/2021 6:33 PM Sera Valdivia, RN 6. Suicidal Behavior (Lifetime) No 1 6:33 PM Sera Valdivia RN documented as of this encounter Plan of Treatment Not on file documented as of this encounter Visit Diagnoses Not on filedocumented in this encounter Care Teams Crystalizer Tender Relationship Specialty Start Date End Date Rosi Altamirano NP PCP - General 01/04/21 12/25/21 [place] FNP [address] [place] [address] PCP - General 12/26/21 documented as of this encounter Additional Source Comments The information contained in this document represents components of the legal health record. It is not the complete legal health record.[facility]
--- OUTSIDE RECORDS SUMMARY | 2025-01-19 17:40 | XMS_ITS | Encounter Summary ---
Author Organization [facility] Address [address] [place] [address] 7 [place] [address] Care Team Providers Care Machine Printer Hose Name Role Phone Sofy Cardenas STUNNER Primary Care Provider [phone] Paul Yu STUNNER Unavailable Unavailable Encounter Details Date Type Department Care Team ([facility] st Contact Info) Description 10/15/2024 Orders Only [facility] [address] [place] [address] Laya Herring MD [address] [place] [address] Social History Tobacco Use Types Packs/Day Years [...] with others, in a hotel, in a detention, living outside on the street, on a [...] Description 02/14/2025 1:45 PM EST Office Visit [facility] [address] [place] [address] Sofy Cardenas FNP [address] [place] [address] documented as of this encounter Visit Diagnoses Not on filedocumented in this encounter Additional Health Concerns Assessment Noted Time PHQ-9 Depression Total Score: 10 025 9:23 AM EDT documented as of this encounter Care Teams Machine Printer Hose Relationship Specialty Start Date End Date Sofy Cardenas FNP [address] [place] [address] PCP - General Family Medicine 11/30/21 Paul Yu FNP [address] [place] [address] Nurse Practitioner Family Medicine 02/26/23 documented as of this encounter
--- OUTSIDE RECORDS SUMMARY | 2025-01-19 17:40 | XMS_ITS | Encounter Summary ---
Author Organization [facility] Address [address] [facility] [address] [place] [address] Phone Care Team Providers Care Plant Controls Specialist Name Role Phone Sofy Cardenas HECTOR Primary Care Provider [phone] Encounter Details Date Type Department Care Team (Late st Contact Info) Description 09/28/2023 Procedure Pass [facility], Ct Scan - [address] [address] Social History Tobacco Use Types Packs/Day Years Used Date Smoking Tobacco: Former Cigarettes 0.3 5 0 04/07/2014 - 04/07/2019 Smokeless Tobacco: Never Alcohol Use Standard Drinks/Week [...] Date of Assessment Author No Risk Indicated 09/28/2023 3:20 PM EDT Delores Gongora RN * [place] Suicide Severity Rating Scale (Screener/Recent Self-Report) Question Answer Date of Assessment Author 1. Wish to be (Past 1 Month) No 09/28/2023 3:20 PM EDT Delores Gongora RN 2. Non-Specific Active Suici amaris Thoughts (Past 1 Month) No 09/28/2023 3:20 PM EDT Delores Gongora RN 6. Suicidal Behavior (Lifetime) No 3:20 PM EDT Delores Gongora RN documented as of this encounter Plan of Treatment Not on file documented as of this encounter Visit Diagnoses Not on filedocumented in this encounter Care Teams Plant Controls Specialist Relationship Specialty Start Date End Date Sofy Cardenas FNP [address] [place] [address] PCP - General 12/26/21 documented as of this encounter Additional Source Comments The information contained in this document represents components of the legal health record. It is not the complete legal health record.[facility]
--- OUTSIDE RECORDS SUMMARY | 2025-01-19 17:40 | XMS_ITS | Encounter Summary ---
Author Organization [facility] Address [address] [facility] [address] [place] [address] Phone Care Team Providers Care Haz Tech Name Role Phone Rosi Altamirano NP Primary Care Provider Sofy Roberts [facility] Primary Care Provider [phone] Encounter Details Date Type Department Care Team (Latest Contact Info) Description 06/29/2021 Transcribe Orders [facility] V[facility] [address] [facility] [address] [address] [address] [place] [address] [email or web address] Problems with hearing (Primary Dx) Social History Tobacco Use Types [...] as of this encounter Plan of Treatment Scheduled Orders Name Type Priority Associated Diagnoses Orde r Schedule Hearing Test Audiology Routine Problems with hearing Expected: 06/29/2021, Expires: 09/29/2021 documented as of this encounter Visit Diagnoses Diagnosis Problems with hearing- Primary documented in this encounter Care Teams Haz Tech Relationship Specialty Start Date End Date Rosi Altamirano NP PCP - General 01/04/21 12/25/21 [place] FNP [address] [place] [address] PCP - General 12/26/21 documented as of this encounter Additional Source Comments The information contained in this document represents components of the legal health record. It is not the complete legal health record.[facility]
--- OUTSIDE RECORDS SUMMARY | 2025-01-19 17:40 | XMS_ITS | Clinical Summary ---
Author Organization [facility] Address [address] [place] [address] Care Team Providers Care Distribution Center Associate Name Role Phone [facility] Primary Care Provider [phone] Allergies Active Allergy Reactions Criticality Noted Date [...] answered. Miscarried on 12/28/21 Was seen at [facility]. US report in media This is [...] 10/29/2021 Hearing loss 06/15/2011 Overactive child 06/15/2011 Encounters Date Type Department Care Team Description 11/02/2024 Telephone [facility] [address] [place] [address] Center Customer Service Associate: Prema Baker, RAJEEV PAC Nurse Scheduling Request (Hemangioma; requesting to reschedule follow up) from Last 3 Months Family History Medical [...] 78 04/12/2022 9:06 AM EST Temperature 36.1 C (96.9 F) 04/12/2022 9:06 AM EST Respiratory Rate 18 04/12/2022 9:06 AM EST Oxygen Saturation - - Inhaled Oxygen Concentration - - Weight 108.9 kg (240 lb) 04/12/2022 9:06 AM EST Height - - Body Mass Index - - Plan of Treatment Health Maintenance Due Date Last Done Comments Cervical Cancer Screening 1993 HPV and Pap Smear 1993 Hepatitis C Screening 1993 Pap Smear 1993 Chlamydia Screening 2009 Alcohol/Substance Use Screening 04/07/2024 Depression Screening and Follow-Up 04/07/2024 Social Drivers of Health Annual Screening 04/07/2024 COVID-19 Vaccine ( season) 2024 11/19/2022, 11/21/2021, 08/17/2020, Additional history exists Influenza Vaccine (#1) 2024 4, 03/08/2013, 01/24/2012, Additional history exists DTaP,Tdap,and Td Vaccines (9 - Td or Tdap) 11/14/2027 11/13/2017, 02/20/2012, 01/23/2006, Additional history exists RSV Vaccine (60+ years old and patients) (1 - 1-dose 75+ series) 2068 Hepatitis B Vaccines Completed 10/04/1994, 03/06/1994, 01/04/1994 Varicella Vaccines Completed 01/25/2010, 08/04/1998 HIV Screening Completed 08/31/2021 Pneumococcal Vaccine: Pediatric (0-5 Years) and At-Risk Patients (6-50 Years) Aged Out 11/21/2021 No longer eligible based on patient's age to complete this topic Insurance [facility] Care Teams Distribution Center Associate Relationship Specialty Start Date End Date [facility] [address] [place] [address] PCP - General 08/12/22
--- OUTSIDE RECORDS SUMMARY | 2025-01-19 17:40 | XMS_ITS | Encounter Summary ---
Author Organization [facility] Address [address] [place] [address] Phone Care Team Providers Care Eligibility Technician Name Role Phone Rosi Altamirano NP Primary Care Provider U Sofy Roberts Primary Care Provider [phone] Encounter Details Date Type Department Care Team (Late st Contact Info) Description 10/31/2021 Procedure Pass [facility] - [facility] [address] [place] [address] Social History Tobacco Use Types Packs/Day Years [...] on filedocumented in this encounter Care Teams Eligibility Technician Relationship Specialty Start Date End Date Rosi Altamirano NP PCP - General 01/04/21 12/25/21 Sofy Cardenas FNP [address] [place] [address] PCP - General 12/26/21 documented as of this encounter Additional Source Comments The information contained in this document represents components of the legal health record. It is not the complete legal health record.[facility]
--- OUTSIDE RECORDS SUMMARY | 2025-01-19 17:40 | XMS_ITS | Encounter Summary ---
Author Organization [employer] Address [address] [place] [address] [place] [address] Care Team Providers Care Wind Turbine Performance Engineer Name Role Phone [place] Sofy [facility] Primary Care Provider [phone] Paul Yu Unavailable Unavailable Reason for Visit * Reason Onset Date Comments Med Refill 01/13/2025 Encounter Details Date Type Department Care Team ([facility] st Contact Info) Description 01/13/2025 Telephone [facility] [address] [place], [place] [phone] [place] Sofy, [facility] [address] [place] [address] Med Refill Social History Tobacco Use Types Packs/Day Years [...] with others, in a hotel, in [place] [facility], living outside on the street, on a [...] encounter Miscellaneous Notes * Telephone Encounter - Shameka Banks RN - 01/14/2025 3:18 PM EDT Pt. Returned call. Pt. Reports she has been noticing recently that a few days prior to when weekly inj is due, appetite is returning. Pt. Agrees to continue to use 2.5mg dose for this month and have f/up appointment with PCP 02/14 at 1:45pm * Telephone Encounter - Shameka Bnaks RN - 01/14/2025 12:15 PM EDT TC placed to pt. To advise there is a refill available for the dose requested, call went straight to VM x 2 attempts. Left message requesting call back to Red Team RN upon receipt of message. Pt. To f/up prn * Telephone Encounter - Charity Hunt LPN - 01/14/2025 8:03 AM EDT Please review patient has a refill but unclear if next dose due * Telephone Encounter - John Landrum - 01/13/2025 4:31 PM EDT TC from pt requesting medication refill. Medications needing refill: Tirzepatide-Weight Management (Zepbound) 2.5 MG/0.5ML solution auto-injector To be sent to: [facility] - [place], [place] - [address] [facility] documented in this encounter Plan of Treatment Upcoming Encounters Date Type Department Care Team (Late st Contact Info) Description 02/14/2025 1:45 PM EST Office Visit [facility] [address] [place] [address] Sofy Cardenas FNP [address] [place] [address] documented as of this encounter Visit Diagnoses Diagnosis Class 3 severe obesity due to excess calories with serious comorbidity and body mass index (BMI) of 50.0 to 59.9 in adult (HCC) documented in this encounter Additional Health Concerns Assessment Noted Time PHQ-9 Depression Total Score: 10 09/24/ 025 9:23 AM EDT documented as of this encounter Care Teams Wind Turbine Performance Engineer Relationship Specialty Start Date End Date Sofy Cardenas FNP [address] [place] [address] PCP - General Family Medicine 11/30/21 Paul Yu FNP [address] [place] [address] Nurse Practitioner Family Medicine 02/26/23 documented as of this encounter
--- OUTSIDE RECORDS SUMMARY | 2025-01-19 17:40 | XMS_ITS | Encounter Summary ---
Author Organization [facility] Address [address] [facility] [address] [place] [address] Phone Care Team Providers Care Crane Operator Name Role Phone Sofy Cardenas Primary Care Provider [phone] Encounter Details Date Type Department Care Team (Late st Contact Info) Description 07/15/2022 Procedure Pass [facility] DEPT [address] [place] [address] Social History Tobacco Use Types Packs/Day Years [...] on filedocumented in this encounter Care Teams Crane Operator Relationship Specialty Start Date End Date Sofy Cardenas FNP [address] [place] [address] PCP - General 12/26/21 documented as of this encounter Additional Source Comments The information contained in this document represents components of the legal health record. It is not the complete legal health record.[facility]
--- OUTSIDE RECORDS SUMMARY | 2025-01-19 17:40 | XMS_ITS | Encounter Summary ---
Author Organization [facility] Address [address] [place] [address] Phone Care Team Providers Care Auto Technician Mechanic Name Role Phone Sofy Cardenas Primary Care Provider [phone] Encounter Details Date Type Department Care Team (Late st Contact Info) Description 07/22/2023 Procedure Pass [facility] [address] [place] [address] Social History Tobacco Use Types Packs/Day Years [...] with a working camera? Not on file Comments No Sex and Gender Information Value [...] on filedocumented in this encounter Care Teams Auto Technician Mechanic Relationship Specialty Start Date End Date Sofy CardenasHECTOR [address] [place] [address] PCP - General 12/26/21 documented as of this encounter Additional Source Comments The information contained in this document represents components of the legal health record. It is not the complete legal health record.[facility]
== END 2025-01-19 14:38 | disposition home or self-care (01) ==
LOC: HO.HSM 13:53
PROVIDERS: PCP Registered Nurse; Referring Provider Registered Nurse; Visit Provider Registered Nurse
DX: G40.909 Epilepsy, unspecified, not intractable, without status epilepticus (principal)
CPT/HCPCS: 99214

== ENCOUNTER → 2025-01-19 13:52 | Outpatient (BNVA) | payer MEDICAID, SELFPAY | PROVIDERS: PCP Registered Nurse; Referring Provider Registered Nurse; Visit Provider Registered Nurse | DX: G40.909 Epilepsy, unspecified, not intractable, without status epilepticus (principal) | CPT/HCPCS: 99212 ==

== ENCOUNTER 2025-02-02 12:04 | Outpatient (REF) | payer MEDICAID, SELFPAY ==
--- OUTSIDE RECORDS SUMMARY | 2025-02-02 17:40 | XMS_ITS | Encounter Summary ---
Author Organization [facility] Address [address] [place] [address] 7 [place] [address] Care Team Providers Care Animal Therapist Name Role Phone Sofy Cardenas EXECUTIVE SERVICES ADMINISTRATOR Primary Care Provider [phone] Paul Yu EXECUTIVE SERVICES ADMINISTRATOR Unavailable Unavailable Encounter Details Date Type Department Care Team ([facility] st Contact Info) Description 02/02/2025 5:40 PM EDT Office Visit [facility] [address] [place] [address] Yudelka Gottlieb MD [address] [place] [address] Dysuria (Primary Dx) Social History Tobacco Use Types [...] with others, in a hotel, in a skilled nursing, living outside on the street, on a [...] Sign Reading Time Taken Comments Blood Pressure 126/76 02/02/2025 5:38 PM EDT Pulse 97 02/02/2025 5:38 PM EDT Temperature 36.7 C (98.1 F) 02/02/2025 5:38 PM EDT Respiratory Rate 20 02/02/2025 5:38 PM EDT Oxygen Saturation 98% 02/02/2025 5:38 PM EDT Inhaled Oxygen Concentration - - Weight 108 kg (239 lb) 02/02/2025 5:38 PM EDT Height - - Body Mass Index 48.27 12/01/2024 5:18 PM EDT documented in this encounter Progress Notes * Yudelka Gottlieb MD - 02/02/2025 5:40 PM EDT Images from the original note were not included. SUBJECTIVE: Fabiola Varela is a 29 y.o. female who presents for acute visit. Denies recent illness, ER visit,or hospitalization. Acute Concerns: Vaginal discharge - Reports 1 day history of slight whitish vaginal discharge following completion of menstrual period - Uncertain if discharge is related to urinary tract infection (UTI) or yeast infection, both of which occurred within the past year - Has been drinking cranberry juice, not regular water - Denies fever, chills, nausea, vomiting - Denies urinary frequency, urgency, hesitancy - Denies recent sexual intercourse Lab Results Since Last [facility] Visit as of 02/02/2025, sorted by update time Updated Procedure 02/02/251746 POCT Urinalysis Collected: 02/02/251743 Final result Specimen: Urine, Random Color, UA Josie Protein, UA Many Clarity, UA Clear Urobilinogen, UA 0.2 Glucose, UA Negative Leukocytes, UA Negative Bilirubin, UA Few 15 Nitrite, UA Negative Ketones, UA Positive Appearance, UA clear Spec Grav, UA 1.030 QC Media Lot # [id number] Blood, UA Negative Lot# Expiration Date 63,026 pH, UA 5.5 Patient Active Problem List Diagnosis Date Noted Fibromyalgia 02/02/2025 Recurrent biliary colic 02/02/2025 Lesion of liver 02/02/2025 Acute conjunctivitis of right eye 12/01/2024 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 09/26/2024 History of cholecystectomy 11/24/2022 Mixed anxiety and depressive disorder 09/17/2022 Anemia 07/23/2022 Syncope 07/23/2022 History of recurrent spontaneous , not currently 06/26/2022 Mood disorder (CMS/HCC) 05/09/2022 PCOS (polycystic ovarian syndrome) 10/29/2021 Asthma 01/04/2021 Complex renal cyst 09/22/2020 Migraine without aura 07/31/2020 Focal nodular hyperplasia of liver 01/10/2015 Arnold-Chiari malformation, type I (CMS/HCC) (HCC) 01/10/2015 Seasonal allergies 01/05/2015 Hearing loss 06/15/2011 Gastroesophageal reflux disease 06/15/2011 Attention deficit hyperactivity disorder (ADHD) 06/15/2011 Surgical History[1] Social History Social History Narrative Social History: Current living environment: Lives with parents and daughter in [place]. Children: 1, daughter 10 years old Employment/Education: Student. Studying criminal justice. Tobacco Use: None Alcohol Use: Occasionally Marijuana Use: None Other drug use: None Reproductive Health: Sexually Active: Yes Partners are: AMAB LMP: 07/15/22, irregular since menarche due to PCOS. No prior hx of tx for PCOS. Control: None desires . Hx of miscarriage. Planning a in the next 12 months: Yes. Taking vitamins. Working with fertility specialist. Review of Systems Constitutional: Negative. Respiratory: Negative. Cardiovascular: Negative. Gastrointestinal: Negative. Genitourinary: Positive for vaginal discharge. Negative for decreased urine volume, difficulty urinating, dysuria, flank pain, frequency, menstrual problem, urgency, vaginal bleeding and vaginal pain. OBJECTIVE: Vitals: 02/02/25 1738 BP: 126/76 BP Location: Left arm Patient Position: Sitting BP Cuff Size: Adult Pulse: 97 Resp: 20 Temp: 98.1 ??F (36.7 ??C) TempSrc: Oral SpO2: 98% Weight: 239 lb (108 kg) Physical Exam Vitals reviewed. Constitutional: Appearance: Normal appearance. HENT: Head: Normocephalic and atraumatic. Cardiovascular: Rate and Rhythm: Normal rate and regular rhythm. Pulses: Normal pulses. Heart sounds: Normal heart sounds. Pulmonary: Effort: Pulmonary effort is normal. Breath sounds: Normal breath sounds. Skin: General: Skin is warm and dry. Neurological: General: No focal deficit present. Mental Status: She is alert and oriented to person, place, and time. Psychiatric: Mood and Affect: Mood normal. Behavior: Behavior normal. ASSESSMENT/PLAN Unclear source of patient's vaginal discharge. As urine is not highly suggestive of UTI, will wait for urine culture to result, and hold off on empiric treatment until BV swab has returned. Problem List Items Addressed This Visit None Visit Diagnoses Dysuria - Primary Relevant Orders POCT Urinalysis (Completed) Chlamydia/N. Gonorrhoeae RNA, TMA, Vaginal Culture, Urine, Routine Follow Up: per PCP recall or sooner prn Allergies[2] Current Medications[3] Sinhala Translation: Patient is bilingual and declines translation services [1] History reviewed. No pertinent surgical history. [2] Allergies Allergen Reactions Acetic Acid Other Reaction(s): Anaphylaxis from Vinegar Latex Anaphylaxis Breathing issues Nortriptyline Other reaction(s): Itching, swelling, Trouble Breathing hives hives hives hives Shellfish Allergy Anaphylaxis Amitriptyline Azithromycin Other reaction(s): Nausea/Vomiting, Unknown Reaction not mentioned Patient unsure - discovered as a child. Reaction not mentioned Cefuroxime Hives Other reaction(s): GI Problems, rash, Unknown vomiting vomiting vomiting vomiting Clonidine Nausea And Vomiting mentioned Reaction not mentioned Reaction not mentioned Reaction not mentioned mentioned Reaction not mentioned Dexlansoprazole Nausea And Vomiting Other reaction(s): Unknown Reaction not mentioned Reaction not mentioned Erythromycin Other reaction(s): Nausea/Vomiting, rash, Unknown Patient unsure - discovered as a child. Gabapentin Breathing problems Breathing problems Gramineae Pollens Lorazepam Other reaction(s): agittated Methylphenidate Nausea And Vomiting Other reaction(s): Vomiting Reaction not mentioned Also hives. Reaction not mentioned Pantoprazole Other reaction(s): Unknown Patient unsure. Penicillins Other reaction(s): Nausea/Vomiting swelling swelling swelling swelling Polymyxin B Prazosin Headache and Nausea Only Raspberry Hives Celecoxib Hives, Nausea And Vomiting and Rash Reaction not mentioned Reaction not mentioned Reaction not mentioned Reaction not mentioned Iodine Anxiety [3] Current Outpatient Medications: atomoxetine (Strattera) 25 MG capsule, Take 1 capsule (25 mg) by mouth 2 times daily. Swallow capsule whole; do not open. If opened accidentally, do not touch eyes; wash hands immediately (product isan eye irritant)., Disp: 180 capsule, Rfl: 3 cetirizine (ZyrTEC) 10 MG tablet, take 1 tablet by oral route every day as needed for allergy symptoms, Disp: 30 tablet, Rfl: 3 DULoxetine (Cymbalta) [address] capsule, Take 1 capsule (20 mg) by mouth Once per day. Do not crush or chew., Disp: 90 capsule, Rfl: 3 EPINEPHrine (Adrenalin) 0.3 MG/0.3ML injection, Inject 1 Applicator as directed as needed (allergicreaction)., Disp: 2 each, Rfl: 1 gabapentin (Neurontin) 600 MG tablet, TAKE 1 TABLET BY MOUTH THREE TIMES DAILY, Disp: 90 tablet, Rfl: 2 gatifloxacin (Zymar) 0.5 % solution ophthalmic solution, Administer 1 drop into the right eye 4 times daily., Disp: 2.5 mL, Rfl: 0 ibuprofen 800 MG tablet, Take 1 tablet by mouth every 8 (eight) hours if needed., Disp: , Rfl: lurasidone (Latuda) 60 MG tablet, Take 1 tablet (60 mg) by mouth Once daily. Take with a meal, Disp: 90 tablet, Rfl: 3 ondansetron ODT (Zofran-ODT) 8 MG disintegrating tablet, Take 1 tablet (8 mg) by mouth every 8 (eight) hours if needed for nausea., Disp: 20 tablet, Rfl: 0 phentermine 15 MG capsule, Take 1 capsule (15 mg) by mouth before breakfast., Disp: 30 capsule, Rfl: 0 SUMAtriptan (Imitrex) 50 MG tablet, TAKE 1 TABLET BY MOUTH AT ONSET OF MIGRAINE. MAY REPEAT ONCE AFTER 2 HOURS IF NEEDED DO NOT EXCEED 4 TABLETS DAILY, Disp: 9 tablet, Rfl: 1 Tirzepatide-Weight Management (Zepbound) 2.5 MG/0.5ML solution auto-injector, Inject 0.5 mL (2.5 mg) under the skin 1 (one) time per week., Disp: 2 mL, Rfl: 1 tiZANidine (Zanaflex) 4 MG tablet, Take 1 tablet (4 mg) by mouth if needed in the morning and at bedtime for muscle spasms for up to 10 days., Disp: 20 tablet, Rfl: 0 topiramate (Topamax) 25 MG tablet, Take 1 tablet by mouth 2 times daily., Disp: , Rfl: triamcinolone (Kenalog) 0.1 % cream, Apply topically if needed in the morning and at bedtime (pain and swelling)., Disp: 30 g, Rfl: 0 documented in this encounter Plan of Treatment Upcoming Encounters Date Type Department Care Team (Late st Contact Info) Description 02/14/2025 1:45 PM EST Office Visit [facility] [address] [place] [address] [facility] [address] [place] [address] Scheduled Orders Name Type Priority Associated Diagnoses Orde r Schedule Chlamydia/N. Gonorrhoeae RNA, TMA, Vaginal Microbiology Routine Dysuria Ordered: 02/02/2025 Culture, Urine, Routine Microbiology Routine Dysuria Expected: 02/02/2025 (Approximate), Expires: 02/02/2026 documented as of this encounter Procedures Procedure Name Priority Date/Time Associated Diagnosis Comments POCT URINALYSIS DIPSTICK Routine 02/02/2025 5:44 PM EDT Dysuria documented in this encounter Results * (ABNORMAL) POCT Urinalysis (02/02/2025 5:44 PM EDT) Color, UA Josie Clarity, UA Clear Glucose, UA Negative Bilirubin, UA Few 15 Comment:small Ketones, UA Positive Comment:15mg/dL Spec Grav, UA 1.030 Blood, UA Negative Negative, None Detected pH, UA 5.5 Protein, UA Many Comment:30mg/dL Urobilinogen, UA 0.2 Leukocytes, UA Negative Negative, Rare, Trace Nitrite, UA Negative Negative, None Detected Appearance, UA clear QC Media Lot # [id number] Lot# Expiration Date 63,026 Urine (Urine, Random) 02/02/2025 5:44 PM EDT Yudelka Gottlieb MD POINT OF CARE TEST ENTER/EDIT ORDERABLES Final Result documented in this encounter Visit Diagnoses Diagnosis Dysuria- Primary documented in this encounter Additional Health Concerns Assessment Noted Time PHQ-9 Depression Total Score: 10 025 9:23 AM EDT documented as of this encounter Care Teams Animal Therapist Relationship Specialty Start Date End Date Sofy Cardenas FNP [address] [place] [id number] PCP - General Family Medicine 11/30/21 Paul Yu FNP [address] [place] [address] Nurse Practitioner Family Medicine 02/26/23 documented as of this encounter
--- OUTSIDE RECORDS SUMMARY | 2025-02-03 14:58 | XMS_ITS | Encounter Summary ---
Author Organization [facility] Address [address] [place], [place] [phone] Phone Care Team Providers Care Vp Strategic Planning Name Role Phone Ari Latham MD Primary Care Provider Joseph cortes Encounter Details Date Type Department Care Team (Late st Contact Info) Description 09/11/2010 Documentation [facility] Family Medicine [address] [place], [place] [phone] Family Medicine, Physician [facility] [place] [address] Social History Tobacco Use Types Packs/Day Years [...] on filedocumented in this encounter Care Teams Vp Strategic Planning Relationship Specialty Start Date End Date Ari Latham MD PCP - General 11/15/16 07/07/22 documented as of this encounter
--- OUTSIDE RECORDS SUMMARY | 2025-02-03 14:58 | XMS_ITS | Encounter Summary ---
Author Organization [facility] Address [address] [facility] 7t [place] [address] Care Team Providers Care Supervisor Shed Workers Name Role Phone Ronald Sofy CONSTRUCTION ADMINISTRATOR Primary Care Provider [phone] Paul Yu Unavailable Unavailable Encounter Details Date Type Department Care Team (Late st Contact Info) Description 09/16/2023 Orders Only [facility] [address] [place], [place] [phone] Lanny Lamb FNP [address] [place] [address] Social History Tobacco Use Types Packs/Day Years [...] Description 02/14/2025 1:45 PM EST Office Visit [facility] [address] [place], [place] [phone] [facility] [address] [place], [place] [phone] documented as of this encounter Procedures Procedure Name Priority Date/Time Associated Diagnosis Comments XR KNEE 1-2 VIEWS LEFT Routine 10/01/2023 2:15 AM EDT documented in this encounter Results * XR Knee 1-2 Views Left (10/01/2023 2:15 AM EDT) Anatomical Region Laterality Modality Lower Extremities, Knee Left [facility] 10/01/2023 2:15 AM EDT Narrative 10/01/2023 3:26 AM EDT [address] [address] XRay Report Signed Patient: Fabiola Varela MR#: [id number] : 1995 Acct:[id number] Age/Sex: 27 / F ADM Date: 10/01/23 Loc: .ED Attending Dr: Ordering Physician: Ernestine Lassiter MD Date of Service: 10/01/23 Procedure(s): XR knee LT 2V Accession Number(s): [id number] cc: Ernestine Lassiter MD; [facility] EXAMINATION: XR KNEE, LEFT CLINICAL [...] in OV> 10/01/23 0322 DD/ 4 TD/TT: Cable Installer Repairer: CARRIE Procedure Note Donotuseinterpreter, Image - 10/01/2023 [place] [address] XRay Report Signed Patient: Fabiola VarelaMR#: [id number] : 1995Acct:[id number] Age/Sex: 27 FADM Date: 10/01/23 Loc: .ED Attending Dr: Ordering Physician: Ernestine Lassiter MD Date of Service: 10/01/23 Procedure(s): XR knee LT 2V Accession Number(s): [id number] cc: Ernestine Lassiter MD; [facility] EXAMINATION: XR KNEE, LEFT CLINICAL [...] in OV> 10/01/23 0322 DD/ 0215 TD/TT: Cable Installer Repairer: CARRIE [facility] External Provider IMG XR PROCEDURES Edited Result - Final documented in this encounter Visit Diagnoses Not on filedocumented in this encounter Additional Health Concerns Assessment Noted Time PHQ-9 Depression Total Score: 2 07/07/19 24 10:19 AM EDT documented as of this encounter Care Teams Supervisor Shed Workers Relationship Specialty Start Date End Date Sofy Cardenas FNP [address] [place] [address] PCP - General Family Medicine 11/30/21 Paul Yu FNP [address] [place] [address] Nurse Practitioner Family Medicine 02/26/23 documented as of this encounter
--- OUTSIDE RECORDS SUMMARY | 2025-02-03 14:58 | XMS_ITS | Encounter Summary ---
Author Organization [facility] Address [address] [place], [place] [phone] Phone Care Team Providers Care Local Sales Associate Name Role Phone Ari Latham MD Primary Care Provider Joseph cortes Encounter Details Date Type Department Care Team (Late st Contact Info) Description 03/20/2011 Documentation [facility] Family Medicine [address] [place], [place] [phone] Family Medicine, Physician [facility] [place] [address] Social History Tobacco Use Types Packs/Day Years [...] on filedocumented in this encounter Care Teams Local Sales Associate Relationship Specialty Start Date End Date Ari Latham MD PCP - General 11/15/16 07/07/22 documented as of this encounter
--- OUTSIDE RECORDS SUMMARY | 2025-02-03 14:58 | XMS_ITS | Encounter Summary ---
Author Organization [facility] Address [address] [place], [place] [phone] Phone Care Team Providers Care Antenna Machine Operator Name Role Phone Ari Latham MD Primary Care Provider Joseph cortes Encounter Details Date Type Department Care Team (Late st Contact Info) Description 04/24/2012 Documentation [facility] Medicine [address] [place], [place] [phone] Family Medicine, Physician [facility] [place] [address] Social History Tobacco Use Types Packs/Day Years [...] on filedocumented in this encounter Care Teams Antenna Machine Operator Relationship Specialty Start Date End Date Ari Latham MD PCP - General 11/15/16 07/07/22 documented as of this encounter
--- OUTSIDE RECORDS SUMMARY | 2025-02-03 14:58 | XMS_ITS | Clinical Summary ---
Author Organization [facility] Address [address] [place] [phone] Phone Care Team Providers Care Fruit Packer Name Role Phone Unavailable Primary Care [...] complete this topic Procedures * Due to [place] state law, this organization might not be sharing sensitive test results. Procedure Name Priority Date/Time Associated Diagnosis Comments CHLAMYDIA AND GONORRHEA, AMPLIFIED Routine 10/06/2014 2:30 PM EDT from Last 3 Months or Most Recently Relevant to Health Maintenance Results * Due to [place] state law, this organization might not be sharing sensitive test results. * Chlamydia and Gonorrhoea, Amplified (10/06/2014 2:30 PM EDT) URINE CHLAMYDIA AMP PROBE NEGATIVE [facility] Comment: No Chlamydia Trachomatis RNA detected in this patient's sample (REFERENCE RANGE/NORMAL VALUE: NOT DETECTED) URINE GC AMP PROBE NEGATIVE [facility] Comment: No Neisseria Gonorrhoeae RNA detected in this patient's sample (REFERENCE RANGE/NORMAL VALUE: NOT DETECTED) NOTE: This test uses pharmacology teacher-mediated amplification method to detect rRNA from C.Trachomatis [...] risk of sexual abuse. Consult the [facility] if needed. Contact phone number . Therapeutic failure or success cannot be determined with the Aptima Combo2 assay since nucleic acid may persist following appropriate antimicrobial therapy. The Centers for Disease Control and Prevention (CDC) recommends confirmatory retesting using culture or a different nucleic acid amplification test when positive results occur, if indicated. Testing performed or reported by [facility], a Service of [facility], [address] [place] [address] Sean Castro MD, PhD, Field Operations Coordinator 10/06/2014 2:30 PM EDT Narrative [facility] - 10/06/2014 2:30 PM EDT URINE CHLAMYDIA GC AMP PROBE us Bhumi Riojas NP LAB MICROBIOLOGY - GENERAL OR DERABLES Final Result [facility] [address] [place] [id number], from Last 3 Months or Most Recently Relevant to Health Maintenance
--- OUTSIDE RECORDS SUMMARY | 2025-02-03 14:58 | XMS_ITS | Encounter Summary ---
Author Organization [facility] Address [address] [place], [place] [phone] Phone Care Team Providers Care Addiction Nurse Name Role Phone Ari Latham MD Primary Care Provider Joseph cortes Encounter Details Date Type Department Care Team (Late st Contact Info) Description 11/27/2011 Documentation [facility] Family Medicine [address] [place], [place] [phone] Family Medicine, Physician [facility] [place] [address] Social History Tobacco Use Types Packs/Day Years [...] on filedocumented in this encounter Care Teams Addiction Nurse Relationship Specialty Start Date End Date Ari Latham MD PCP - General 11/15/16 07/07/22 documented as of this encounter
--- OUTSIDE RECORDS SUMMARY | 2025-02-03 14:58 | XMS_ITS | Encounter Summary ---
Author Organization [facility] Address [address] [place], [place] [phone] Phone Care Team Providers Care Game Master Name Role Phone Ari Latham MD Primary Care Provider Joseph cortes Encounter Details Date Type Department Care Team (Late st Contact Info) Description 06/11/2012 Documentation [facility] Family Medicine [address] [place], [place] [phone] Family Medicine, Physician [facility] [place] [address] Social History Tobacco Use Types Packs/Day Years [...] on filedocumented in this encounter Care Teams Game Master Relationship Specialty Start Date End Date Ari Latham MD PCP - General 11/15/16 07/07/22 documented as of this encounter
--- OUTSIDE RECORDS SUMMARY | 2025-02-03 14:58 | XMS_ITS | Encounter Summary ---
Author Organization [facility] Address [address] [place], [place] [phone] Phone Care Team Providers Care Rig Builder Helper Name Role Phone Ari Latham MD Primary Care Provider Joseph cortes Encounter Details Date Type Department Care Team (Late st Contact Info) Description 06/15/2011 Documentation [facility] Family Medicine [address] [place], [place] [phone] Family Medicine, Physician [facility] [place] [address] Social History Tobacco Use Types Packs/Day Years [...] on filedocumented in this encounter Care Teams Rig Builder Helper Relationship Specialty Start Date End Date Ari Latham MD PCP - General 11/15/16 07/07/22 documented as of this encounter
--- OUTSIDE RECORDS SUMMARY | 2025-02-03 14:58 | XMS_ITS | Encounter Summary ---
Author Organization [facility] Address [address] [place], [place] [phone] Phone Care Team Providers Care Manager Employee Relations Name Role Phone Ari Latham MD Primary Care Provider Joseph cortes Encounter Details Date Type Department Care Team (Late st Contact Info) Description 05/22/2010 Documentation [facility] Family Medicine [address] [place], [place] [phone] Family Medicine, Physician [facility] [place] [address] Social History Tobacco Use Types Packs/Day Years [...] on filedocumented in this encounter Care Teams Manager Employee Relations Relationship Specialty Start Date End Date Ari Latham MD PCP - General 11/15/16 07/07/22 documented as of this encounter
--- OUTSIDE RECORDS SUMMARY | 2025-02-03 14:59 | XMS_ITS | Encounter Summary ---
Author Organization [facility] Address [address] [place] [address] Phone Care Team Providers Care Revenue Enforcement Agent Name Role Phone Ari Latham MD Primary Care Provider Joseph cortes Encounter Details Date Type Department Care Team (Late st Contact Info) Description 11/21/2016 Conversion Encounter [facility] - [address] [address] Social History Tobacco Use Types Packs/Day Years [...] on filedocumented in this encounter Care Teams Revenue Enforcement Agent Relationship Specialty Start Date End Date Ari Latham MD PCP - General 11/15/16 07/07/22 documented as of this encounter
--- OUTSIDE RECORDS SUMMARY | 2025-02-03 14:59 | XMS_ITS | Clinical Summary ---
Author Organization [employer] Address [address] [place] [address] 7 [place] [address] Care Team Providers Care Gear Repairer Name Role Phone Sofy Cardenas RN BURN Primary Care Provider [phone] Paul Yu RN BURN Unavailable Unavailable Allergies Active Allergy Reactions Criticality Noted Date Comments Acetic Acid High 06/26/2022 Other Reaction(s): Anaphylaxis from Vinegar Amitriptyline 03/06/2021 Azithromycin 01/10/2015 Other reaction(s): Nausea/Vomiting, [...] Breathing problems Breathing problems Gramineae Pollens 04/18/2022 Iodine Anxiety Low 01/13/2015 Latex Anaphylaxis High 11/07/2022 Breathing issues Lorazepam 01/05/2015 Other reaction(s): agittated Methylphenidate Nausea And Vomiting 01/10/2015 Other reaction(s): Vomiting Reaction not mentioned Also hives. Reaction not mentioned Nortriptyline High 01/05/2015 Other reaction(s): Itching, swelling, Trouble Breathing hives hives hives hives Pantoprazole 01/13/2015 Other reaction(s): Unknown Patient unsure. Penicillins 12/01/2014 Other reaction(s): Nausea/Vomiting swelling swelling swelling swelling Polymyxin B 07/28/2020 Prazosin Headache,Nausea Only 10/30/2020 Raspberry Hives 01/13/2015 Shellfish Allergy Anaphylaxis High 01/13/2015 Medications * This document [...] of 50.0 to 59.9 in adult (HCC) Take 1 capsule (15 mg) by mouth [...] of 50.0 to 59.9 in adult (HCC) Inject 0.5 mL (2.5 mg) under the skin 1 (one) time per week. 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 Elia Indication: recurrent biliary colic Assessment & Plan [...] and motivation PLAN: 1. Follow up with [facility]: Not recommended for follow-up 2. Patient goal [...] spontan eous , not currently 06/26/2022 Overview (02/02/2025): Normal SHG. Normal HgbA1C, FSH, TSH, LAC, PT gene mutation, Factor V, Mood disorder 05/09/2022 Assessment & Plan (10/20/2023 [...] so patient will be referred to new [facility] Psychiatric prescriber. She is aware that appts will be via televisit and that provider will not be an [facility] employee. She gives permission to share [...] then she will be referred to new [facility] Psychiatric prescriber. Continue with therapist. She [...] continue. Will start with new therapist at [facility]. F/U 2-3 months. She agrees with the [...] She will continue with her therapist at [facility]. F/U 6 weeks. She agrees with the [...] She will continue with her therapist at [facility] but does not want to consider transferring [...] She will continue with her therapist at [facility] but does not want to consider transferring [...] She will continue with her therapist at [facility] but does not want to consider transferring to psychiatric provider there. F/U 2 weeks. She agrees with the plan. PCOS (polycystic ovarian syndrome) 10/29/2021 Asthma 01/04/2021 Complex renal cyst 09/22/2020 Migraine without aura 07/31/2020 Focal nodular hyperplasia of liver 01/10/2015 Overview (04/18/2022): Wedge resection of liver 05/2012 Wedge resection of liver 05/2012 Arnold-Chiari malformation, type I (CMS/HCC) 09/2014 Overview (04/18/2022): MRI 2007 MRI 2007 Seasonal allergies 01/05/2015 Hearing loss 06/15/2011 Overview [...] Hyperemesis gravidarum 12/27/202108/15 Overview (04/18/2022): Admitted to [facility] 12/26 for IV hydration and IV zofran and phenergan Admitted to [facility] 12/26 for IV hydration and [...] answered. Miscarried on 12/28/21 Was seen at [facility]. US report in media This is [...] answered. Miscarried on 12/28/21 Was seen at [facility]. US report in media This is [...] 08/15/2022 Major depressive disorder 01/04/2021 Overview (04/18/2022): [facility] Anxiety 01/04/2021 08/15/2022 Seizure ([facility]/HCC) 09/10/2020 08/15/2022 Urinary incontinence 07/31/2020 023 Pain in both hands 07/31/2020 Arthralgia of right ankle 07/31/2020 Posttraumatic stress disorder 01/05/2015 08/15/2022 Morbid obesity (CMS/HCC) 12/21/201302/2023 Overview (04/18/2022): Obesity in (BMI >30) [...] Encounters Date Type Department Care Team Description 02/02/2025 5:40 PM EDT Office Visit [facility] [address] [address] Yudelka Gottlieb MD Dysuria (Primary Dx) 01/13/[address] [address] CarterSofy [facility] Med Refill 12/30/[address] [address] CarterSofy [facility] Nurse Triage 12/14/[address] [address] CarterSofy [facility] Class 3 severe obesity due to excess calories with serious comorbidity and body mass index (BMI) of 50.0 to 59.9 in adult 12/13/2024 Patient Outreach [address] [address] CarterSofy [facility] Care Coordination (C3CM/CHW Yoseph Manleyoh f/u call, closed ) 12/01/2024 5:40 PM EDT [facility] [address] [address] Laya Herring MD Acute conjunctivitis of right eye, unspecified acute conjunctivitis type (Primary Dx) 12/01/2024 Travel 11/22/2024 Patient Outreach [address] [address] CarterSofy [facility] Care Coordination (C3CM/CHW Odilon Garrett, TC #2 SDOH f/u call_lvm) 11/15/[address] [place] [address] Sofy Cardenas RN BURN Prior Authorization ( TINO: Gissel) 11/03/2024 11:45 AM EDT Telemedicine [facility] [address] [place] [address] Sofy Cardenas RN BURN Class 3 severe obesity due to excess calories with serious comorbidity and body mass index (BMI) of 50.0 to 59.9 in adult (Primary Dx) 11/03/2024 Travel from Last 3 Months Immunizations Immunization Administration [...] alent preservative free 03/08/2013 Influenza, IIV3, injectable 03/07/2014,1 05/09/2012,01/24/2012,02/11,02/02/2009 Influenza, Split (incl. gustavo fied surface antigen) [...] with others, in a hotel, in a long-term, living outside on the street, on a [...] (239 lb) 02/02/2025 5:38 PM EDT Height 149.9 cm (4' 11 ) 12/01/2024 5:18 PM EDT Body Mass Index 48.27 12/01/2024 5:18 PM EDT Plan of Treatment Upcoming Encounters Date Type Department Care Team (Late st Contact Info) Description 02/14/2025 1:45 PM EST Office Visit [facility] [address] [place] [address] [facility], [facility] [address] [place] [address] Health Maintenance Due Date Last Done Comments Family Planning (PISQ) 2008 HPV/Cotest 12/07/2023 COVID-19 Vaccine ( season) 2024 11/19/2022, 11/21/2021, 08/17/2020, Additional history exists Influenza Vaccine (#1) 2024 4, 03/07/2014, 03/08/2013, Additional history exists Depression Monitoring 03/26/2025 09/24/2024, 025 SDOH Screening 06/28/2025 06/28/2024 Alcohol/Substance Use Screening 09/24/2025 09/24/2024 Disability Screening 09/24/2025 09/24/2024 Tobacco Screening 02/02/2026 02/02/2025 Cervical Cancer Screening 02/19/2026 Pap Smear 02/19/2026 [...] DIPSTICK Routine 02/02/2025 5:44 PM EDT Dysuria LIPID PANEL, STANDARD Routine 06/25/2024 9:27 AM EDT Class 3 severe obesity due to excess calories with serious comorbidity and body mass index (BMI) of 50.0 to 59.9 in adult (CMS/HCC) HIV 1/2 ANTIGEN/ANTIBODY, FOURTH GENERATION W/RFL Routine 04/18/2023 12:05 PM EST Hemoptysis PAP SMEAR Routine 02/19/2023 10:40 AM EST HEPATITIS C ANTIBODY Routine 06/28/2022 2:05 PM EDT Acute carpal tunnel syndrome, unspecified laterality from Last 3 Months or Most Recently Relevant to Health Maintenance Results * (ABNORMAL) POCT Urinalysis (02/02/2025 5:44 [...] OF CARE TEST ENTER/EDIT ORDERABLES Final Result * (ABNORMAL) Lipid Panel, Standard (06/25/2024 9:27 AM EDT) Triglycerides 58 <150 mg/dL [facility] Comment:Desirable Triglyceri de: less than 150 mg/dLBorderline High Triglyceride 150-199 mg/dLHigh Triglyceride: 200-499 mg/dLVery High Triglyceride: greater than or equal to 5OO mg/dL Cholesterol 110 <200 mg/dL [facility] Comment:Desirable Cholestero l: less than 200 mg/dLBorderline High Cholesterol: 200-239 mg/dLHigh Cholesterol: greater than 239 mg/dL LDL Cholesterol Calculated 62 <100 mg/dL [facility] Comment:Desirable LDL: less than 100 mg/dLNear Optimal/Above Optimal LDL: 110- 129 mg/dLBorderline High LDL: 130-159 mg/dLHigh LDL: 160-189 mg/dLVery High LDL: greater than or equal to 190 mg/dL HDL Cholesterol 37(L) >40 mg/dL [facility] Comment:Desirable HDL: great er than 40 mg/dL Note: This HDL assay may give artificially low results in patients with liver disease. Blood Venous blood specimen / Unknown 06/25/2024 9:27 AM EDT 06/25/2024 11:07 AM EDT [facility] LAB BLOOD ORDERABLES Final Re sult Performing Organization Address City/[facility]/ZIP Co de Phone Number [facility] [address] [place] [address] [phone] * HIV-1/2 Antigen and Antibodies, Fourth Generation, with Reflexes (04/18/2023 12:05 PM EST) [facility] HIV AB/AG Nonreactive Nonreactive [facility] Comment:HIV-1 p24 Ag and/or HIV-1/HIV-2 Ab not detected.A test result that is nonreactive does not exclude thepossibility of exposure to or infection with HIV-1 and/orHIV-2. Nonreactive results in this assay for individualswith prior exposure to HIV-1 and/or HIV-2 may be due toantigen and antibody levels that are below the limit ofdetection of this assay.[employer] HIV Ag/Ab Combo assay result andsupplemental assay results should be interpreted inconjunction with the patient's clinical presentation,history and other laboratory results. If the results areinconsistent with clinical evidence, additional testing issuggested to confirm the result. Blood Venous blood specimen / Unknown 04/18/2023 12:05 PM EST 04/18/2023 1:04 PM EST us Laya Bundy MD LAB BLOOD ORDERABLES Final Result Performing Organization Address City/[facility]/ZIP Co de Phone Number [facility] [address] [place] [address] [phone] * Pap Smear (02/19/2023 10:40 AM EST) 02/19/2023 10:4 0 AM EST 02/20/2023 10:45 AM EST [facility] - 03/11/2023 7:55 AM EST ----- ------- Name: Fabiola Varela Age/Sex: 27/F : 1995 Unit#: [id number] Attend Dr: Sofy Cardenas Re02/19/23 Status: DEP [facility] Disch: ----- ------- SPEC : [id number] RECD: 02/20/23 STATUS: LUZ MARINA ISAURA NUM: [id number] SERGO: 02/19/23-[address]: Sofy CardenasP ENTERED: 02/21/23 SP TYPE: Pap Smr DAVE DR: ORDERED: Pap Smear Interpretation Satisfactory for evaluation. No endocervical cells seen. Blood. Mild inflammation. Negative for intraepithelial lesion or malignancy. Clinical Information LMP: Unknown date Previous PAP test: Unknown date/findings Material Received ThinPrep-Cervical ----- ------- Signed (signature on file) J CARLOS Pena ([facility]) 03/11/23 0755 ----- ------- END OF REPORT [facility] RN BURN LAB CYTOLOGY ORDERABLES Final Result Performing Organization Address [facility]/ZIP Co de Phone Number [facility] [address] [place] [address] [phone] * Hepatitis C Ab (06/28/2022 2:05 PM EDT) Hepatitis C Antibody Nonreactive Nonreactive [facility] Comment:Antibodies to HCV no t detected; does not exclude early acuteHCV infection. 06/28/2022 2:05 PM EDT 06/28/2022 2:05 PM EDT [facility] External Provider LAB BLO OD ORDERABLES Final Result Performing Organization Address [facility]/RUST Co de Phone Number [facility] [address] [place] [address] [phone] from Last 3 Months or Most Recently Relevant to Health Maintenance [facility] C3 Care Teams Gear Repairer Relationship Specialty Start Date End Date Sofy Cardenas RN BURN [address] [place] [address] PCP - General Family Medicine 11/30/21 Paul Yu FNP [address] [place] [address] Nurse Practitioner Family Medicine 02/26/23
--- OUTSIDE RECORDS SUMMARY | 2025-02-03 14:59 | XMS_ITS | Encounter Summary ---
Author Organization [facility] Address [address] [place], [place] [phone] Phone Care Team Providers Care Leather Roller Name Role Phone Ari Latham MD Primary Care Provider Joseph cortes Encounter Details Date Type Department Care Team (Late st Contact Info) Description 03/09/2010 Documentation EM Family Medicine [address] [place], [place] [id number] Family Medicine, Physician [facility] [place] [address] Social History Tobacco Use Types Packs/Day Years [...] on filedocumented in this encounter Care Teams Leather Roller Relationship Specialty Start Date End Date Ari Latham MD PCP - General 11/15/16 07/07/22 documented as of this encounter
--- OUTSIDE RECORDS SUMMARY | 2025-02-03 14:59 | XMS_ITS | Encounter Summary ---
Author Organization [facility] Address [address] [place] [address] Phone Care Team Providers Care Hostel Parent Name Role Phone Rosi Altamirano NP Primary Care Provider Sofy Roberts [facility] Primary Care Provider [phone] Encounter Details Date Type Department Care Team (Latest Contact Info) Description 06/29/2021 Transcribe Orders FADY Vestibular Lab [facility] [address] [facility] [address] [address] [address] [place] [address] [email or web address] Problems with hearing (Primary Dx) Social History [...] Primary documented in this encounter Care Teams Hostel Parent Relationship Specialty Start Date End Date Rosi Altamirano NP PCP - General 01/04/21 12/25/21 SycamoreSofy FNP [address] [place] [address] PCP - General 12/26/21 documented as of this encounter Additional Source Comments The information contained in this document represents components of the legal health record. It is not the complete legal health record.[facility]
--- OUTSIDE RECORDS SUMMARY | 2025-02-03 14:59 | XMS_ITS | Encounter Summary ---
Author Organization [facility] Address [address] [place] [address] Phone Care Team Providers Care Last Waxer Name Role Phone Rosi Altamirano PRINT SHOP STENOGRAPHER Primary Care Provider chung RonaldSofy tadeo Adama COPPERSMITH HELPER Primary Care Provider [phone] Reason for Referral * MRI/CAT Scan - Closed Specialty Diagnoses / Procedures Referred By Neri murdock Referred To Contact Radiology Diagnoses Liver hemangioma Procedures MRI Abdomen Sera Treviño PA-C Phone: tel: fax: [email or web address] Referral ID Status Reason Start Date Expiration Date Visits Re quested Visits Authorized [id number] Closed 06/07/2021 06/07/2022 1 1 Encounter Details Date Type Department Care Team (Latest Contact Info) Description 06/07/2021 Transcribe Orders Virtual Department [address] [place] [address] Sera Treviño PA-C [address] [place] [address] [email or web address] Liver hemangioma (Primary Dx) Social History Tobacco [...] hemangioma documented in this encounter Care Teams Last Waxer Relationship Specialty Start Date End Date Rosi Altamirano NP PCP - General 01/04/21 12/25/21 Brant LakeSofy FNP [address] [place] [address] PCP - General 12/26/21 documented as of this encounter Additional Source Comments The information contained in this document represents components of the legal health record. It is not the complete legal health record.[facility]
--- OUTSIDE RECORDS SUMMARY | 2025-02-03 14:59 | XMS_ITS | Encounter Summary ---
Author Organization [employer] Address [address] [place] [address] 7 [place] [address] Care Team Providers Care Wine Sales Representative Name Role Phone Sofy Cardenas CRAYON GRADER Primary Care Provider [phone] Paul Yu CRAYON GRADER Unavailable Unavailable Encounter Details Date Type Department Care Team ([facility] st Contact Info) Description 10/15/2024 Orders Only [facility] [address] [place] [address] Laya Herring MD [address] [place] [address] Social History Tobacco Use Types Packs/Day Years [...] Description 02/14/2025 1:45 PM EST Office Visit [facility] [address] [place] [address] Sofy Cardenas FNP [address] [place] [address] documented as of this encounter Visit Diagnoses Not on filedocumented in this encounter Additional Health Concerns Assessment Noted Time PHQ-9 Depression Total Score: 10 025 9:23 AM EDT documented as of this encounter Care Teams Wine Sales Representative Relationship Specialty Start Date End Date Sofy Cardenas FNP [address] [place] [address] PCP - General Family Medicine 11/30/21 Paul Yu FNP [address] [place] [address] Nurse Practitioner Family Medicine 02/26/23 documented as of this encounter
--- OUTSIDE RECORDS SUMMARY | 2025-02-03 14:59 | XMS_ITS | Encounter Summary ---
Author Organization [facility] Address [address] [place] [address] Care Team Providers Care Jewel Hole Driller Name Role Phone Sofy Cardenas Primary Care Provider [phone] Encounter Details Date Type Department Care Team (Late st Contact Info) Description 10/29/2021 Orders Only [facility] Nuclear Medicine [address] [place], [place] [phone] Casey Lomeli MD [address] [place], [place] [phone] Social History Tobacco Use Types Packs/Day Years [...] on filedocumented in this encounter Care Teams Jewel Hole Driller Relationship Specialty Start Date End Date Sofy Cardenas [address] [place] [address] PCP - General 08/12/22 documented as of this encounter
--- OUTSIDE RECORDS SUMMARY | 2025-02-03 14:59 | XMS_ITS | Encounter Summary ---
Author Organization [facility] Address [address] [place] [address] 7 [place] [address] Care Team Providers Care Internet Media Planner Name Role Phone [facility] Primary Care Provider [phone] Paul Yu STEEPLECHASE JOCKEY Unavailable Unavailable Reason for Visit * Reason Onset Date Comments pt1 06/26/2022 PT1 07/09/2022 Encounter Details Date Type Department Care Team ([facility] st Contact Info) Description 06/26/2022 Telephone [facility] [address] [place], [place] [phone] [facility] [address] [place] [address] pt1; PT1 Social History Tobacco Use Types [...] / denial letter via mail. PT-1 Request [id number] Pending. [facility] [address] [facility] * Telephone Encounter - Ade Corrales - 07/09/2022 8:51 AM EDT Tc from patient re calling in regards to message below. Patient has a surgery on 07/15/22. * Telephone Encounter - Adam Ramos - 06/26/2022 9:25 AM EDT Tc from pt requesting to renew pt1 Location:[address] [place] [address] Specialty: surgery Time: 6 am Date: July 15 2022 Molding Process Technician: yes wheelchair accessible : no Location::[address] [place] [address] Specialty: post op Time: na Date:na Molding Process Technician: yes wheelchair accessible :na documented in this encounter Plan of Treatment Upcoming Encounters Date Type Department Care Team (Late st Contact Info) Description 02/14/2025 1:45 PM EST Office Visit [facility] [address] [place] [address] Sofy Cardenas FNP [address] [place] [address] documented as of this encounter Visit Diagnoses Not on filedocumented in this encounter Additional Health Concerns Assessment Noted Time PHQ-9 Depression Total Score: 3 05/23/19 23 11:16 AM EST documented as of this encounter Care Teams Internet Media Planner Relationship Specialty Start Date End Date Sofy Cardenas FNP [address] [place] [address] PCP - General Family Medicine 11/30/21 Paul Yu FNP [address] [place], [place] [address]T[place] [address] Nurse Practitioner Family Medicine 02/26/23 documented as of this encounter
--- OUTSIDE RECORDS SUMMARY | 2025-02-03 14:59 | XMS_ITS | Encounter Summary ---
Author Organization [facility] Address [address] [place] [address] [place] [address] Phone Care Team Providers Care Roll Shop Supervisor Name Role Phone Rosi Altamirano WIRE STRETCHER Primary Care Provider Sofy Roberts CLEARANCE COORDINATOR Primary Care Provider [phone] Encounter Details Date Type Department Care Team (Late st Contact Info) Description 02/27/2021 Ancillary Orders [facility] [address] [place] [address] Kathy Carlisle PA-C [address] [place] [address] [email or web address] Social History Tobacco Use Types [...] quadrant documented in this encounter Care Teams Roll Shop Supervisor Relationship Specialty Start Date End Date Rosi Altamirano NP PCP - General 01/04/21 12/25/21 Sofy Cardenas FNP [address] [place] [address] PCP - General 12/26/21 documented as of this encounter Additional Source Comments The information contained in this document represents components of the legal health record. It is not the complete legal health record.[facility]
--- OUTSIDE RECORDS SUMMARY | 2025-02-03 14:59 | XMS_ITS | Encounter Summary ---
Author Organization [employer] Address [address] [place] [address] [place] [address] Care Team Providers Care Data Entry Assistant Name Role Phone [facility] Primary Care Provider [phone] Paul Yu Unavailable Unavailable Reason for Visit * Reason Onset Date Comments Results 06/07/2022 Encounter Details Date Type Department Care Team ([facility] st Contact Info) Description 06/07/2022 Telephone [facility] [address] [place], [place] [phone] [facility] [address] [place] [address] Results Social History Tobacco Use Types Packs/Day [...] 05/29/2022. Please contact pt with results at [phone] documented in this encounter Plan of Treatment Upcoming Encounters Date Type Department Care Team (Late st Contact Info) Description 02/14/2025 1:45 PM EST Office Visit [facility] [address] [place] [address] Sofy Cardenas FNP [address] [place] [address] documented as of this encounter Visit Diagnoses Not on filedocumented in this encounter Additional Health Concerns Assessment Noted Time PHQ-9 Depression Total Score: 3 05/23/19 23 11:16 AM EST documented as of this encounter Care Teams Data Entry Assistant Relationship Specialty Start Date End Date Sofy Cardenas FNP [address] [place] [address] PCP - General Family Medicine 11/30/21 Paul Yu FNP [address] [place] [address] Nurse Practitioner Family Medicine 02/26/23 documented as of this encounter
--- OUTSIDE RECORDS SUMMARY | 2025-02-03 14:59 | XMS_ITS | Clinical Summary ---
Author Organization [facility] Address [address] [place] [address] Care Team Providers Care Wash Helper Name Role Phone [facility] Primary Care Provider [phone] Allergies Active Allergy Reactions Criticality Noted Date [...] answered. Miscarried on 12/28/21 Was seen at [facility]. US report in media This is her [...] patient's age to complete this topic Insurance [employer] Care Teams Wash Helper Relationship Specialty Start Date End Date [facility] [address] [place] [address] PCP - General 08/12/22
--- OUTSIDE RECORDS SUMMARY | 2025-02-03 14:59 | XMS_ITS | Encounter Summary ---
Author Organization [facility] Address [address] [place] [address] [place] [address] Phone Care Team Providers Care Industrial Technician Name Role Phone Rosi Altamirano [employer]YNAM[employer] AX DEVELOPER Primary Care Provider U Sofy Roberts ESL PROFESSOR Primary Care Provider [phone] Encounter Details Date Type Department Care Team (Late st Contact Info) Description 02/26/2021 Procedure Pass [facility], Ct Scan - [address] [address] Social History Tobacco Use Types Packs/Day Years [...] 02/26/2021 6:33 PM Sera Lawson, RN * [place] Suicide Severity Rating Scale (Screener/Recent Self-Report) Question [...] filedocumented in this encounter Care Teams Industrial Technician Relationship Specialty Start Date End Date Rosi Altamirano NP PCP - General 01/04/21 12/25/21 MiamiSofy FNP [address] [place] [address] PCP - General 12/26/21 documented as of this encounter Additional Source Comments The information contained in this document represents components of the legal health record. It is not the complete legal health record.[facility]
--- OUTSIDE RECORDS SUMMARY | 2025-02-03 14:59 | XMS_ITS | Encounter Summary ---
Author Organization [facility] Address [address] [place] [address] Care Team Providers Care Store Host Name Role Phone [facility] Primary Care Provider [phone] Reason for Visit * Reason Onset Date Comments schedule an appt 08/29/2021 Encounter Details Date Type Department Care Team (Late st Contact Info) Description 08/29/2021 Telephone [facility] Central Scheduling Department [address] [place] [address] Telephone Intake, Staff schedule an appt Social [...] for Fabiola There is a rfrl in [facility] No dates are avaible for in person or TH Pleas give PT a call back at [phone] Fabiola is hearing impaired she uses a [...] on filedocumented in this encounter Care Teams Store Host Relationship Specialty Start Date End Date [facility] [address] [place] [address] PCP - General 08/12/22 documented as of this encounter
--- OUTSIDE RECORDS SUMMARY | 2025-02-03 15:00 | XMS_ITS | Encounter Summary ---
Author Organization [facility] Address [address] [facility] [address] [place] [address] Phone Care Team Providers Care Csm Consultant Name Role Phone Sofy Cardenas HECTOR Primary Care Provider [phone] Encounter Details Date Type Department Care Team (Late st Contact Info) Description 09/28/2023 Procedure Pass [facility], Ct Scan - [address] [address] Social History Tobacco Use Types Packs/Day Years [...] 3:20 PM EDT Delores Gongora RN * [place] Suicide Severity Rating Scale (Screener/Recent Self-Report) Question [...] on filedocumented in this encounter Care Teams Csm Consultant Relationship Specialty Start Date End Date Sofy Cardenas FNP [address] [place] [address] PCP - General 12/26/21 documented as of this encounter Additional Source Comments The information contained in this document represents components of the legal health record. It is not the complete legal health record.[facility]
--- OUTSIDE RECORDS SUMMARY | 2025-02-03 15:00 | XMS_ITS | Clinical Summary ---
Author Organization [facility] Address [address] [address] Care Team Providers Care Steamfitter Supervisor Name Role Phone Unavailable Primary Care Provider [...] (01/04/2021): Expressive language disorder Seasonal allergy 01/05/2015 Post-traumatic stress disorder 01/05/2015 Attention deficit hyperactivity disorder [...] Date Last Done Comments Influenza Vaccine (#1) 2024 4, 03/08/2013, 01/24/2012, Additional history exists Hepatitis B Vaccine Completed 10/04/1994, 03/06/1994, 01/04/1994 Pneumococcal Vaccine: Peds (0 to 5 Years) and At-Risk Patients (6 to 49 Years) Aged Out No longer eligi ble based on patient's age to complete this topic [place]
--- OUTSIDE RECORDS SUMMARY | 2025-02-03 15:00 | XMS_ITS | Encounter Summary ---
Author Organization [facility] Address [address] [place], [place] [phone] Phone Care Team Providers Care Anatomy Professor Name Role Phone Ari Latham MD Primary Care Provider Joseph cortes Encounter Details Date Type Department Care Team (Late st Contact Info) Description 09/02/[address] [facility] [place] [address] [place], [place] [phone] Family Medicine, Physician [facility] [place] [address] Social History Tobacco Use Types Packs/Day Years [...] on filedocumented in this encounter Care Teams Anatomy Professor Relationship Specialty Start Date End Date Ari Latham MD PCP - General 11/15/16 07/07/22 documented as of this encounter
--- OUTSIDE RECORDS SUMMARY | 2025-02-03 15:00 | XMS_ITS | Encounter Summary ---
Author Organization [employer] Address [address] [facility] 7 [place] [address] Care Team Providers Care Food And Nutrition Services Supervisor Name Role Phone RialtoSofy tadeo [facility] Primary Care Provider [phone] Paul Yu Unavailable Unavailable Encounter Details Date Type Department Care Team ([facility] st Contact Info) Description 02/12/2023 Telephone [facility] [address] [place], [place] [phone] RialtoSofy [facility] [address] [place], [place] [phone] Social History Tobacco Use Types Packs/Day Years [...] Description 02/14/2025 1:45 PM EST Office Visit [facility] [address] [place] [address] Sofy Cardenas FNP [address] [place] [address] documented as of this encounter Visit Diagnoses Not on filedocumented in this encounter Additional Health Concerns Assessment Noted Time PHQ-9 Depression Total Score: 1 12/17/19 23 1:45 PM EDT documented as of this encounter Care Teams Food And Nutrition Services Supervisor Relationship Specialty Start Date End Date Sofy Cardenas FNP [address] [place] [address] PCP - General Family Medicine 11/30/21 Paul Yu FNP [address] [place] [address] Nurse Practitioner Family Medicine 02/26/23 documented as of this encounter
--- OUTSIDE RECORDS SUMMARY | 2025-02-03 15:00 | XMS_ITS | Encounter Summary ---
Author Organization [facility] Address [address] [place], [place] [address] Phone Care Team Providers Care Air Intelligence Specialist Name Role Phone Ari Latham MD Primary Care Provider Joseph cortes Encounter Details Date Type Department Care Team (Late st Contact Info) Description 03/06/2010 Documentation [facility] Family Medicine [address] [place], [place] [phone] Family Medicine, [place] [address] Social History Tobacco Use Types Packs/Day Years [...] on filedocumented in this encounter Care Teams Air Intelligence Specialist Relationship Specialty Start Date End Date Ari Latham MD PCP - General 11/15/16 07/07/22 documented as of this encounter
--- OUTSIDE RECORDS SUMMARY | 2025-02-03 15:00 | XMS_ITS | Encounter Summary ---
Author Organization [facility] Address [address] [place] [address] Phone Care Team Providers Care Marine Scientist Name Role Phone Sofy Cardenas Primary Care Provider [phone] Encounter Details Date Type Department Care Team (Late st Contact Info) Description 07/22/2023 Procedure Pass [facility] DEPT [address] [place] [address] Social History Tobacco Use Types Packs/Day Years [...] on filedocumented in this encounter Care Teams Marine Scientist Relationship Specialty Start Date End Date Sofy CardenasHECTOR [address] [place] [address] PCP - General 12/26/21 documented as of this encounter Additional Source Comments The information contained in this document represents components of the legal health record. It is not the complete legal health record.[facility]
--- OUTSIDE RECORDS SUMMARY | 2025-02-03 15:00 | XMS_ITS | Encounter Summary ---
Author Organization [facility] Address [address] [place], [place] [address] Phone Care Team Providers Care Electric Repair Supervisor Name Role Phone Ari Latham MD Primary Care Provider Joseph cortes Encounter Details Date Type Department Care Team (Late st Contact Info) Description 09/05/2009 Documentation [facility] Family Medicine [address] [place], [place] [phone] Family Medicine, Physician [facility] [place] [address] Social History Tobacco Use Types Packs/Day Years [...] filedocumented in this encounter Care Teams Electric Repair Supervisor Relationship Specialty Start Date End Date Ari Latham MD PCP - General 11/15/16 07/07/22 documented as of this encounter
--- OUTSIDE RECORDS SUMMARY | 2025-02-03 15:00 | XMS_ITS | Encounter Summary ---
Author Organization [facility] Address [address] [place], [place] [phone] Phone Care Team Providers Care Banjo Repairer Name Role Phone Ari Latham MD Primary Care Provider Joseph cortes Encounter Details Date Type Department Care Team (Late st Contact Info) Description 03/06/2010 Documentation [facility] Family Medicine [address] [place], [place] [phone] Family Medicine, Physician [place] [place] [address] Social History Tobacco Use Types Packs/Day Years [...] on filedocumented in this encounter Care Teams Banjo Repairer Relationship Specialty Start Date End Date Ari Latham MD PCP - General 11/15/16 07/07/22 documented as of this encounter
--- OUTSIDE RECORDS SUMMARY | 2025-02-03 15:00 | XMS_ITS | Encounter Summary ---
Author Organization [employer] Address [address] [place] [address] 7 [place] [address] Care Team Providers Care Jewel Inspector Name Role Phone [facility] Primary Care Provider [phone] Paul Yu Unavailable Unavailable Reason for Visit * Reason Onset Date Comments Nurse Triage 04/15/2023 Encounter Details Date Type Department Care Team ([facility] st Contact Info) Description 04/15/2023 Telephone [facility] [address] [place], [place] [phone] [facility] [address] [place] [address] Nurse Triage Social History Tobacco Use Types [...] accepted this outcome Please contact pt at [phone] documented in this encounter Plan of Treatment Upcoming Encounters Date Type Department Care Team (Late st Contact Info) Description 02/14/2025 1:45 PM EST Office Visit [facility] [address] [place] [address] Sofy Cardenas FNP [address] [place] [address] documented as of this encounter Visit Diagnoses Not on filedocumented in this encounter Additional Health Concerns Assessment Noted Time PHQ-9 Depression Total Score: 6 03/06/20 23 2:58 PM EST documented as of this encounter Care Teams Jewel Inspector Relationship Specialty Start Date End Date Sofy Cardenas FNP [address] [place] [address] PCP - General Family Medicine 11/30/21 Paul Yu FNP [address] [place] [address] Nurse Practitioner Family Medicine 02/26/23 documented as of this encounter
--- OUTSIDE RECORDS SUMMARY | 2025-02-03 15:00 | XMS_ITS | Encounter Summary ---
Author Organization [facility] Address [address] [place] [address] Phone Care Team Providers Care Supervisor Food Checkers And Cashiers Name Role Phone Rosi Altamirano NP Primary Care Provider U Sofy Roberts Primary Care Provider [phone] Encounter Details Date Type Department Care Team (Late st Contact Info) Description 10/31/2021 Procedure Pass [facility] - [facility] [address] [place] [address] Social History Tobacco Use Types Packs/Day Years [...] filedocumented in this encounter Care Teams Supervisor Food Checkers And Cashiers Relationship Specialty Start Date End Date Rosi Altamirano NP PCP - General 01/04/21 12/25/21 Sofy Cardenas FNP [address] [place] [address] PCP - General 12/26/21 documented as of this encounter Additional Source Comments The information contained in this document represents components of the legal health record. It is not the complete legal health record.[facility]
--- OUTSIDE RECORDS SUMMARY | 2025-02-03 15:00 | XMS_ITS | Encounter Summary ---
Author Organization [facility] Address [address] [place], [place] [address] Phone Care Team Providers Care Laundry Assistant Name Role Phone Ari Latham MD Primary Care Provider Joseph cortes Encounter Details Date Type Department Care Team (Late st Contact Info) Description 09/10/2013 Documentation [facility] [place] [place] [address] [place], [place] [phone] Family Medicine, Physician [facility] [place] [address] Social History Tobacco Use Types Packs/Day Years [...] on filedocumented in this encounter Care Teams Laundry Assistant Relationship Specialty Start Date End Date Ari Latham MD PCP - General 11/15/16 07/07/22 documented as of this encounter
--- OUTSIDE RECORDS SUMMARY | 2025-02-03 15:00 | XMS_ITS | Encounter Summary ---
Author Organization [facility] Address [address] [place], [place] [address] Phone Care Team Providers Care Handbag Designer Name Role Phone Ari Latham MD Primary Care Provider Joseph cortes Encounter Details Date Type Department Care Team (Late st Contact Info) Description 08/09/2013 Documentation [facility] [place] [address] [place], [place] [phone] Family Medicine, Physician [facility] [place] [address] Social History Tobacco Use Types Packs/Day Years [...] on filedocumented in this encounter Care Teams Handbag Designer Relationship Specialty Start Date End Date Ari Latham MD PCP - General 11/15/16 07/07/22 documented as of this encounter
--- OUTSIDE RECORDS SUMMARY | 2025-02-03 15:00 | XMS_ITS | Encounter Summary ---
Author Organization [employer] [facility] Address [address] [place] [address] 7 [place] [address] Care Team Providers Care Flatbed Owner Operator Name Role Phone [place] Sofy [facility] Primary Care Provider [phone] Paul Yu Unavailable Unavailable Reason for Visit * Reason Comments Med Refill Encounter Details Date Type Department Care Team (Late st Contact Info) Description 12/11/[address] [facility] [address] [place], [place] [phone] Yaima Shah FNP [address] [place] [address] Social History Tobacco Use Types Packs/Day Years [...] Description 02/14/2025 1:45 PM EST Office Visit [facility] [address] [place] [address] Sofy Cardenas [facility] [address] [place] [address] documented as of this encounter Visit Diagnoses Not on filedocumented in this encounter Additional Health Concerns Assessment Noted Time PHQ-9 Depression Total Score: 3 09/27/19 23 9:18 AM EDT documented as of this encounter Care Teams Flatbed Owner Operator Relationship Specialty Start Date End Date Sofy Cardenas FNP [address] [place] [address] PCP - General Family Medicine 11/30/21 Paul Yu FNP [address] [place] [address] Nurse Practitioner Family Medicine 02/26/23 documented as of this encounter
--- OUTSIDE RECORDS SUMMARY | 2025-02-03 15:00 | XMS_ITS | Encounter Summary ---
Author Organization [facility] Address [address] [place] [address] Phone Care Team Providers Care Senior Communications Engineer Name Role Phone Rosi Altamirano NP Primary Care Provider [facility] Sofy Cardenas Primary Care Provider Encounter Details Date Type Department Care Team (Late st Contact Info) Description 07/16/2021 Procedure Pass [facility]oscopy Admitting Dept Virtual Department [address] [place] [address] Social History Tobacco Use Types Packs/Day Years [...] filedocumented in this encounter Care Teams Senior Communications Engineer Relationship Specialty Start Date End Date Rosi Altamirano NP PCP - General 01/04/21 12/25/21 Sofy Cardenas FNP [address] [place] [address] PCP - General 12/26/21 documented as of this encounter Additional Source Comments The information contained in this document represents components of the legal health record. It is not the complete legal health record.[facility]
--- OUTSIDE RECORDS SUMMARY | 2025-02-03 15:00 | XMS_ITS | Encounter Summary ---
Author Organization [employer] Address [address] [place] [address] Care Team Providers Care Clinical Care Leader Name Role Phone [facility] Primary Care Provider [phone] Paul Yu Unavailable Unavailable Reason for Visit * Reason Onset Date Comments Appointment Request 11/08/2022 Encounter Details Date Type Department Care Team ([facility] st Contact Info) Description 11/08/2022 Telephone [facility] [address] [place], [place] [phone] [facility] [address] [place] [address] Appointment Request Social History Tobacco Use Types [...] and understood,. Advised to give call to [facility] if any questions or concerns. * Telephone Encounter - Ade Antoni - 11/08/2022 1:58 PM EDT Tc from patient requesting a f/u appt, due to getting her gall bladder removed on 11/07/22 at [facility]. documented in this encounter Plan of Treatment Upcoming Encounters Date Type Department Care Team (Late st Contact Info) Description 02/14/2025 1:45 PM EST Office Visit [facility] [address] [place] [address] Sofy Cardenas FNP [address] [place] [address] documented as of this encounter Visit Diagnoses Not on filedocumented in this encounter Additional Health Concerns Assessment Noted Time PHQ-9 Depression Total Score: 3 09/27/19 23 9:18 AM EDT documented as of this encounter Care Teams Clinical Care Leader Relationship Specialty Start Date End Date Sofy Cardenas FNP [address] [place] [address] PCP - General Family Medicine 11/30/21 Paul Yu FNP [address] [place] [address] Nurse Practitioner Family Medicine 02/26/23 documented as of this encounter
--- OUTSIDE RECORDS SUMMARY | 2025-02-03 15:00 | XMS_ITS | Encounter Summary ---
Author Organization [employer] Address [address] [place] [address] 7 [place] [address] Care Team Providers Care Combination Technician Name Role Phone [facility] Primary Care Provider [phone] Paul Yu Unavailable Unavailable Reason for Visit * Reason Onset Date Comments triage 07/05/2022 Encounter Details Date Type Department Care Team ([facility] st Contact Info) Description 07/05/2022 Telephone [facility] [address] [place], [place] [phone] [facility] [address] [place] [address] triage Social History Tobacco Use Types Packs/Day [...] at time of call. Advised to call [facility] after ED eval for follow up and [...] Description 02/14/2025 1:45 PM EST Office Visit [facility] [address] [place] [address] Sofy Cardenas FNP [address] [place] [address] documented as of this encounter Visit Diagnoses Not on filedocumented in this encounter Additional Health Concerns Assessment Noted Time PHQ-9 Depression Total Score: 5 07/05/19 23 9:22 AM EDT documented as of this encounter Care Teams Combination Technician Relationship Specialty Start Date End Date Sofy Cardenas FNP [address] [place] [address] PCP - General Family Medicine 11/30/21 Paul Yu FNP [address] [place] [address] Nurse Practitioner Family Medicine 02/26/23 documented as of this encounter
--- OUTSIDE RECORDS SUMMARY | 2025-02-03 15:00 | XMS_ITS | Encounter Summary ---
Author Organization [facility] Address [address] [place], [place] [phone] Phone Care Team Providers Care Matzo Forming Machine Operator Name Role Phone Ari Latham MD Primary Care Provider Joseph cortes Encounter Details Date Type Department Care Team (Late st Contact Info) Description 11/08/2013 Documentation [facility] [place] [address] [place], [place] [phone] Family Medicine, Physician [facility] [place] [address] Social History Tobacco Use Types Packs/Day Years [...] on filedocumented in this encounter Care Teams Matzo Forming Machine Operator Relationship Specialty Start Date End Date Ari Latham MD PCP - General 11/15/16 07/07/22 documented as of this encounter
--- OUTSIDE RECORDS SUMMARY | 2025-02-03 15:00 | XMS_ITS | Encounter Summary ---
Author Organization [facility] Address [address] [place], [place] [phone] Phone Care Team Providers Care Landscaping Crew Leader Name Role Phone Ari Latham MD Primary Care Provider Joseph cortes Encounter Details Date Type Department Care Team (Late st Contact Info) Description 02/24/2014 Documentation [facility] [address] [place], [place] [phone] Family Medicine, Physician [facility] [place] [address] Social History Tobacco Use Types Packs/Day Years [...] on filedocumented in this encounter Care Teams Landscaping Crew Leader Relationship Specialty Start Date End Date Ari Latham MD PCP - General 11/15/16 07/07/22 documented as of this encounter
--- OUTSIDE RECORDS SUMMARY | 2025-02-03 15:00 | XMS_ITS | Encounter Summary ---
Author Organization [facility] Address [address] [place], [place] [address] Phone Care Team Providers Care Field Merchandiser Name Role Phone Ari Latham MD Primary Care Provider Joseph cortes Encounter Details Date Type Department Care Team (Late st Contact Info) Description 09/24/2013 Documentation [facility] Family Medicine [address] [place], [place] [phone] Family Medicine, Physician On [facility] [place] [address] Social History Tobacco Use Types Packs/Day Years [...] filedocumented in this encounter Care Teams Field Merchandiser Relationship Specialty Start Date End Date Ari Latham MD PCP - General 11/15/16 07/07/22 documented as of this encounter
--- OUTSIDE RECORDS SUMMARY | 2025-02-03 15:00 | XMS_ITS | Encounter Summary ---
Author Organization [facility] Address [address] [facility] [address] [place] [address] Phone Care Team Providers Care Associate Director Qa Name Role Phone Sofy Cardenas Primary Care Provider [phone] Encounter Details Date Type Department Care Team (Late st Contact Info) Description 02/18/2022 Procedure Pass [facility] PERIOP DEPT [address] [place] [address] Social History Tobacco Use Types Packs/Day Years [...] on filedocumented in this encounter Care Teams Associate Director Qa Relationship Specialty Start Date End Date Sofy Cardenas FNP [address] [place] [address] PCP - General 12/26/21 documented as of this encounter Additional Source Comments The information contained in this document represents components of the legal health record. It is not the complete legal health record.[facility]
--- OUTSIDE RECORDS SUMMARY | 2025-02-03 15:00 | XMS_ITS | Encounter Summary ---
Author Organization [facility] Address [address] [facility] [address] [place] [address] Phone Care Team Providers Care Assembly Adjuster Name Role Phone Sofy Cardenas Primary Care Provider [phone] Encounter Details Date Type Department Care Team (Late st Contact Info) Description 07/15/2022 Procedure Pass [facility] DEPT [address] [place] [address] Social History Tobacco Use Types Packs/Day Years [...] filedocumented in this encounter Care Teams Assembly Adjuster Relationship Specialty Start Date End Date Sofy Cardenas FNP [address] [place] [address] PCP - General 12/26/21 documented as of this encounter Additional Source Comments The information contained in this document represents components of the legal health record. It is not the complete legal health record.[facility]
--- OUTSIDE RECORDS SUMMARY | 2025-02-03 15:00 | XMS_ITS | Encounter Summary ---
Author Organization [facility] Address [address] [place], [place] [phone] Phone Care Team Providers Care Truck Jumper Name Role Phone Ari Latham MD Primary Care Provider Joseph cortes Encounter Details Date Type Department Care Team (Late st Contact Info) Description 11/08/2013 Documentation [facility] [address] [place], [place] [id number] Family Medicine, Physician [facility] [place] [address] Social History Tobacco Use Types Packs/Day Years [...] on filedocumented in this encounter Care Teams Truck Jumper Relationship Specialty Start Date End Date Ari Latham MD PCP - General 11/15/16 07/07/22 documented as of this encounter
--- OUTSIDE RECORDS SUMMARY | 2025-02-03 15:00 | XMS_ITS | Clinical Summary ---
Author Organization [facility] Address [address] [place] [address] Phone Care Team Providers Care Yeast Stacker Name Role Phone Sofy Cardenas HECTOR Primary Care Provider [phone] Allergies Active Allergy Reactions Criticality Noted Date [...] Active ferrous sulfate 325 mg (65 mg apache iron) tablet Take 325 mg by mouth [...] She will continue with her therapist at [facility]. F/U 6 weeks. She agrees with [...] answered. Miscarried on 12/28/21 Was seen at [facility]. US report in media This is [...] 01/04/2021 Major depressive disorder 01/04/2021 Overview (06/26/2022): [facility] Tobacco use 01/04/2021 Complex renal cyst 09/22/2020 [...] reflux disease 06/15/2011 Overview (12/27/2021): Admitted to [facility] 12/26/2021 for IV fluids, zofran, and phenergan Resolved Problems Problem Noted Date Diagnosed Date Resolved Date Hyperemesis gravidarum 12/27/202104/22 Overview (12/27/2021): Admitted to [facility] 12/26 for IV hydration and IV [...] without obstruction 01/09/20212023 Overview (12/27/2021): Admitted to [facility] 12/26/2021 for IV fluids, zofran, and phenergan Immunizations Immunization Administration Dates Next Due COVID-19 (Pre-01/27) Pfizer Vaccine, mRNA, radha-sucrose, PF 11/21/2021 DTP 07/06/1995, 5,06/04/1994,03/06 [id number] 05/07/1995, 5,06/04/1994,03/06 Dtap, 5 Pertussis Antigens 08/04/1998 [...] this topic Medical Devices Implanted Type Area Food Cashier Device Identifier Shelf Expiration Date Model / Serial / Lot Implant Cochlear 3d Ultra [facility] [id number] Implanted:Qty: 1 on 02/18/2022 by Ari Loco MD, PhD at [facility] Ear Right: Ear [employer] Time [employer] 10/04/2024 CI-1601-04 / [id number] / Implant Cochlear 3d Ultra [facility] [id number] Implanted:Qty: 1 on 07/15/2022 by Ari Loco MD, PhD at [facility] and Ear Left: Ear [employer] 11/04/2024 CI-1601-04 / [id number] / [id number] [place] [address] [address] [address] C3 ACO C3 ACO C3 ACO C3 ACO C3 ACO C3 ACO C3 ACO C3 ACO C3 ACO Advance Directives For more information, please contact: [phone] (9AM - 5PM [facility], Friday-Friday) Documents on File Type Date Recorded Patient Anesthesia Resident Expl anation Healthcare Proxy 02/19/2022 3:11 PM Care Teams Yeast Stacker Relationship Specialty Start Date End Date Sofy Cardenas FNP [address] [place] [address] PCP - General 12/26/21 Additional Source Comments The information contained in this document represents components of the legal health record. It is not the complete legal health record.[facility]
--- OUTSIDE RECORDS SUMMARY | 2025-02-03 15:00 | XMS_ITS | Encounter Summary ---
Author Organization [facility] Address [address] [place], [place] [phone] Phone Care Team Providers Care Manager Solution Name Role Phone Ari Latham MD Primary Care Provider Joseph cortes Encounter Details Date Type Department Care Team (Late st Contact Info) Description 03/06/2010 Documentation [facility] [address] [place], [place] [phone] Family Medicine, Physician [facility] [place] [address] Social History Tobacco Use Types Packs/Day Years [...] filedocumented in this encounter Care Teams Manager Solution Relationship Specialty Start Date End Date Ari Latham MD PCP - General 11/15/16 07/07/22 documented as of this encounter
--- OUTSIDE RECORDS SUMMARY | 2025-02-03 15:00 | XMS_ITS | Encounter Summary ---
Author Organization [facility] Address [address] [place] [address] Phone Care Team Providers Care Field Sales Engineer Name Role Phone Rosi Altamirano NP Primary Care Provider U Sofy Roberts Primary Care Provider [phone] Encounter Details Date Type Department Care Team (Late st Contact Info) Description 06/07/2021 Procedure Pass [address] [address] Social History Tobacco Use Types Packs/Day Years [...] filedocumented in this encounter Care Teams Field Sales Engineer Relationship Specialty Start Date End Date Rosi Altamirano NP PCP - General 01/04/21 12/25/21 Sofy Cardenas FNP [address] [place] [address] PCP - General 12/26/21 documented as of this encounter Additional Source Comments The information contained in this document represents components of the legal health record. It is not the complete legal health record.[facility]
[2025-02-04 01:25] LABS: CT PCR NOT DETECTED (Not Detect.); NG PCR NOT DETECTED (Not Detect.)
== END 2025-02-02 12:05 | disposition home or self-care (01) ==
LOC: HO.HHCLNP 12:04
PROVIDERS: Visit Provider General Practice
DX: R30.0 Dysuria (principal); Z20.2 Contact with and (suspected) exposure to infections with a predominantly sexual mode of transmission
CPT/HCPCS: 87086; 87491; 87591

== ENCOUNTER 2025-02-08 16:23 | Outpatient (REF) | payer MEDICAID, SELFPAY ==
--- OUTSIDE RECORDS SUMMARY | 2025-02-08 18:36 | XMS_ITS | Encounter Summary ---
Author Organization [facility] Address [address] [place], [place] [phone] Phone Care Team Providers Care Batt Machine Operator Name Role Phone Ari Lahtam MD Primary Care Provider Joseph cortes Encounter Details Date Type Department Care Team (Late st Contact Info) Description 09/11/2010 Documentation [facility] [address] [place], [place] [phone] Family Medicine, Physician [facility] [place] [address] Social History Tobacco Use Types Packs/Day Years [...] on filedocumented in this encounter Care Teams Batt Machine Operator Relationship Specialty Start Date End Date Ari Latham MD PCP - General 11/15/16 07/07/22 documented as of this encounter
--- OUTSIDE RECORDS SUMMARY | 2025-02-08 18:36 | XMS_ITS | Encounter Summary ---
Author Organization [facility] Address [address] [place], [place] [address] Phone Care Team Providers Care Calendering Supervisor Name Role Phone Ari Latham MD Primary Care Provider Joseph cortes Encounter Details Date Type Department Care Team (Late st Contact Info) Description 03/20/2011 Documentation [facility] [place] [facility] [address] [place], [place] [phone] Family Medicine, Physician [facility] [place] [address] Social History Tobacco Use Types Packs/Day Years [...] on filedocumented in this encounter Care Teams Calendering Supervisor Relationship Specialty Start Date End Date Ari Latham MD PCP - General 11/15/16 07/07/22 documented as of this encounter
--- OUTSIDE RECORDS SUMMARY | 2025-02-08 18:36 | XMS_ITS | Encounter Summary ---
Author Organization [facility] Address [address] [place], [place] [phone] Phone Care Team Providers Care Inspector Circuitry Negative Name Role Phone Ari Latham MD Primary Care Provider Joseph cortes Encounter Details Date Type Department Care Team (Late st Contact Info) Description 03/09/2010 Documentation [facility] [address] [place], [place] [phone] Family Medicine, Physician [facility] [place] [address] Social History Tobacco Use Types Packs/Day Years [...] on filedocumented in this encounter Care Teams Inspector Circuitry Negative Relationship Specialty Start Date End Date Ari Latham MD PCP - General 11/15/16 07/07/22 documented as of this encounter
--- OUTSIDE RECORDS SUMMARY | 2025-02-08 18:36 | XMS_ITS | Encounter Summary ---
Author Organization [facility] Address [address] [place] [address] Phone Care Team Providers Care Loom Inspector Name Role Phone Ari Latham MD Primary Care Provider Joseph cortes Encounter Details Date Type Department Care Team (Late st Contact Info) Description 11/21/2016 Conversion Encounter [facility] [address] [address] Social History Tobacco Use Types Packs/Day Years [...] on filedocumented in this encounter Care Teams Loom Inspector Relationship Specialty Start Date End Date Ari Latham MD PCP - General 11/15/16 07/07/22 documented as of this encounter
--- OUTSIDE RECORDS SUMMARY | 2025-02-08 18:36 | XMS_ITS | Encounter Summary ---
Author Organization [facility] Address [address] [place] [address] 7 [place] [address] Care Team Providers Care Brick Sorter Name Role Phone [facility] Primary Care Provider [phone] Paul Yu INSTALLATION ENGINEER Unavailable Unavailable Reason for Visit * Reason Onset Date Comments pt1 06/26/2022 PT1 07/09/2022 Encounter Details Date Type Department Care Team ([facility] st Contact Info) Description 06/26/2022 Telephone [facility] [address] [place], [place] [phone] [facility] [address] [place] [address] pt1; PT1 Social History Tobacco Use Types [...] / denial letter via mail. PT-1 Request [id number] Pending. [facility] [address] [facility] * Telephone Encounter - Ade Corrales - 07/09/2022 8:51 AM EDT Tc from patient re calling in regards to message below. Patient has a surgery on 07/15/22. * Telephone Encounter - Adam Ramos - 06/26/2022 9:25 AM EDT Tc from pt requesting to renew pt1 Location:[address] [place] [address] Specialty: surgery Time: 6 am Date: July 15 2022 Instructor Weaving: yes wheelchair accessible : no Location::[address] [place] [address] Specialty: post op Time: na Date:na Instructor Weaving: yes wheelchair accessible :na documented in this encounter Plan of Treatment Upcoming Encounters Date Type Department Care Team (Late st Contact Info) Description 02/14/2025 1:45 PM EST Office Visit [facility] [address] [place] [address] Sofy Cardenas FNP [address] [place] [address] documented as of this encounter Visit Diagnoses Not on filedocumented in this encounter Additional Health Concerns Assessment Noted Time PHQ-9 Depression Total Score: 3 05/23/19 23 11:16 AM EST documented as of this encounter Care Teams Brick Sorter Relationship Specialty Start Date End Date Sofy Cardenas FNP [address] [place] [address] PCP - General Family Medicine 11/30/21 Paul Yu FNP [address] [place], [place] [address] [place] [address] Nurse Practitioner Family Medicine 02/26/23 documented as of this encounter
--- OUTSIDE RECORDS SUMMARY | 2025-02-08 18:36 | XMS_ITS | Clinical Summary ---
Author Organization [facility] Address [address] [place] [address] Phone Care Team Providers Care Or Rn Name Role Phone Unavailable Primary Care Provider [...] complete this topic Procedures * Due to [place] state law, this organization might not be sharing sensitive test results. Procedure Name Priority Date/Time Associated Diagnosis Comments CHLAMYDIA AND GONORRHEA, AMPLIFIED Routine 10/06/2014 2:30 PM EDT from Last 3 Months or Most Recently Relevant to Health Maintenance Results * Due to [place] state law, this organization might not be sharing sensitive test results. * Chlamydia and Gonorrhoea, Amplified (10/06/2014 2:30 PM EDT) URINE CHLAMYDIA AMP PROBE NEGATIVE [facility] Comment: No Chlamydia Trachomatis RNA detected in this patient's sample (REFERENCE RANGE/NORMAL VALUE: NOT DETECTED) URINE GC AMP PROBE NEGATIVE [facility] Comment: No Neisseria Gonorrhoeae RNA detected in this patient's sample (REFERENCE RANGE/NORMAL VALUE: NOT DETECTED) NOTE: This test uses production specialist-mediated amplification method to detect rRNA from [...] without risk of sexual abuse. Consult the [facility] if needed. Contact [...] [facility], a Service of [facility], [address] [place] [address] Sean Castro MD, PhD, Process Stripper 10/06/2014 2:30 PM EDT Narrative [facility] - 10/06/2014 2:30 PM EDT URINE CHLAMYDIA GC AMP PROBE us Bhumi Riojas NP LAB MICROBIOLOGY - GENERAL OR DERABLES Final Result [facility] [address] [place] [address], from Last 3 Months or Most Recently Relevant to Health Maintenance
--- OUTSIDE RECORDS SUMMARY | 2025-02-08 18:36 | XMS_ITS | Encounter Summary ---
Author Organization [facility] Address [address] [place], [place] [address] Phone Care Team Providers Care Bridge Construction Inspector Name Role Phone Ari Latham MD Primary Care Provider Joseph cortes Encounter Details Date Type Department Care Team (Late st Contact Info) Description 04/24/2012 Documentation [facility] Family Medicine [address] [place], [place] [phone] Family Medicine, Physician [facility] [place] [address] Social History Tobacco Use Types Packs/Day Years [...] on filedocumented in this encounter Care Teams Bridge Construction Inspector Relationship Specialty Start Date End Date Ari Latham MD PCP - General 11/15/16 07/07/22 documented as of this encounter
--- OUTSIDE RECORDS SUMMARY | 2025-02-08 18:36 | XMS_ITS | Clinical Summary ---
Author Organization [employer] Address [address] [place] [address] 7 [place] [address] Care Team Providers Care Modern Languages Professor Name Role Phone Sofy Cardenas DROSS PULLER Primary Care Provider [phone] Paul Yu DROSS PULLER Unavailable Unavailable Allergies Active Allergy Reactions Criticality [...] 11/24/2022 Overview (11/24/2022): Lap Cholecystectomy 11/07/22 at [facility] performed by Dr. Elia Indication: recurrent biliary [...] PLAN: 1. Follow up with [facility]: Not recommended for follow-up 2. Patient [...] so patient will be referred to new [facility] Psychiatric prescriber. She is aware that appts will be via televisit and that provider will not be an [facility] employee. She gives permission to share [...] then she will be referred to new [facility] Psychiatric prescriber. Continue with therapist. She [...] continue. Will start with new therapist at [facility]. F/U 2-3 months. She agrees with the [...] will continue with her therapist at [facility]. F/U 6 weeks. She agrees [...] will continue with her therapist at [facility] but does not want to consider transferring [...] will continue with her therapist at [facility] but does not want to consider transferring [...] will continue with her therapist at [facility] but does not want to consider transferring [...] Hyperemesis gravidarum 12/27/202108/15 Overview (04/18/2022): Admitted to [facility] 12/26 for IV hydration and IV zofran and phenergan Admitted to [facility] 12/26 for IV hydration and IV zofran [...] answered. Miscarried on 12/28/21 Was seen at [facility]. US report in media This is [...] answered. Miscarried on 12/28/21 Was seen at [facility]. US report in media This is [...] 08/15/2022 Major depressive disorder 01/04/2021 Overview (04/18/2022): [facility] Anxiety 01/04/2021 08/15/2022 Seizure ([facility]/HCC) 09/10/2020 08/15/2022 Urinary incontinence 07/31/2020 023 [...] Encounters Date Type Department Care Team Description 02/07/2025 Patient Outreach [address] [address] Sofy Cardenas FNP Pre-visit Planning ([facility] screening was completed on 06/28/2024) 02/07/2025 Results Follow-Up [address] [address] Yudelka Gottlieb MD POCT Urinalysis, Chlamydia/N. Gonorrhoeae RNA, TMA, Vaginal, Culture, Urine, Routine 02/03/[address] [address] Sofy Cardenas FNP Results 02/02/2025 5:40 PM EDT Office Visit [facility] [address] [place] [phone] Yudelka Gottlieb MD Dysuria (Primary Dx) 01/13/[address] [address] Sofy Carednas FNP Med Refill 12/30/[address] [address] Sofy Cardenas FNP Nurse Triage 12/14/[address] [address] Sofy Cardenas FNP Class 3 severe obesity due to excess calories with serious comorbidity and body mass index (BMI) of 50.0 to 59.9 in adult 12/13/2024 Patient Outreach [address] [address] Sofy Cardenas FNP Care Coordination (C3CM/CHW Odilon Garrett, Sdoh f/u call, closed ) 12/01/2024 5:40 PM EDT Office Visit [facility] [address] [place] [address] Laya Herring MD Acute conjunctivitis of right eye, unspecified acute conjunctivitis type (Primary Dx) 12/01/2024 Travel 11/22/2024 Patient Outreach [facility] [address] [place] [address] RonaldSofy tadeo FNP Care Coordination (C3CM/CHW Odilon Garrett, TC #2 SDOH f/u call_lvm) 11/15/2024 Telephone [facility] [address] [place] [address] Sofy Cardenas FNP Prior Authorization ( PA: Gissel) from Last 3 Months Immunizations Immunization Administration [...] Description 02/14/2025 1:45 PM EST Office Visit [facility] [address] [place] [address] [facility] [address] [place] [address] Health Maintenance Due Date Last Done Comments [...] DIPSTICK Routine 02/02/2025 5:44 PM EDT Dysuria CULTURE, URINE, ROUTINE Routine 02/02/2025 5:44 PM EDT Dysuria CHLAMYDIA/N. GONORRHOEAE RNA, TMA, UROGENITAL Routine 02/02/2025 5:44 PM EDT Dysuria LIPID PANEL, STANDARD Routine 06/25/2024 9:27 AM EDT Class 3 severe obesity due to excess calories with serious comorbidity and body mass index (BMI) of 50.0 to 59.9 in adult ([facility]) HIV 1/2 ANTIGEN/ANTIBODY, FOURTH GENERATION W/RFL Routine 04/18/2023 12:05 PM EST Hemoptysis PAP SMEAR Routine 02/19/2023 10:40 AM EST HEPATITIS C ANTIBODY Routine 06/28/2022 2:05 PM EDT Acute carpal tunnel syndrome, unspecified laterality from Last 3 Months or Most Recently Relevant to Health Maintenance Results * Chlamydia/N. Gonorrhoeae RNA, TMA, Vaginal (02/02/2025 5:44 PM EDT) Pathologist [facility] CT PCR NOT DETECTED Not Detect. [facility] Comment:A not detected test result does not exclude the possibilityof infection because test results can be affected byimproper specimen collection, concurrent antibiotic therapy,or the number of organisms in the specimen which may bebelow the sensitivity of the test. As with many diagnostictests, results from the Xpert CT/NG assay should beinterpreted in conjunction with other laboratory andclinical data available to the clinician.Xpert CT/NG performance has not been evaluated in patientsless than 14 years of age. The assay should not be used forthe evaluationof suspected sexual abuse or for other medico-legalindications. Additional testing is recommended in anycircumstance when false positive or false negative resultscould lead to adverse medical, social or psychologicalconsequences. NG PCR NOT DETECTED Not Detect. [facility] Comment:A not detected test result does not exclude the possibilityof infection because test results can be affected byimproper specimen collection, concurrent antibiotic therapy,or the number of organisms in the specimen which may bebelow the sensitivity of the test. As with many diagnostictests, results from the Xpert CT/NG assay should beinterpreted in conjunction with other laboratory andclinical data available to the clinician.Xpert CT/NG performance has not been evaluated in patientsless than 14 years of age. The assay should not be used forthe evaluationof suspected sexual abuse or for other medico-legalindications. Additional testing is recommended in anycircumstance when false positive or false negative resultscould lead to adverse medical, social or psychologicalconsequences. Swab (Vaginal Swab) 02/02/2025 5:44 PM EDT 02/03/2025 12:03 PM EDT Yudelka Gottlieb MD LAB MICROBIOLOGY - GENERAL ORD ERABLES Final Result [facility] [address] [place] [phone] * (ABNORMAL) POCT Urinalysis (02/02/2025 5:44 PM [...] Media Lot # [id number] Lot# Expiration Date 07 Urine (Urine, Random) 02/02/2025 5:44 PM EDT Yudelka Gottlieb MD POINT OF CARE TEST ENTER/EDIT ORDERABLES Final Result * Culture, Urine, Routine (02/02/2025 5:44 PM EDT) Urine Urine specimen obtained by clean catch procedure / Unknown 02/02/2025 5:44 PM EDT 02/03/2025 12:03 PM EDT Comment:UACC Narrative [facility] - 02/04/2025 12:15 PM EDT Urine Culture Report Result Urine Culture 10,000 to 50,000 cfu/ml Urine Culture Mixed bacterial wong characteristic of Urine Culture urogenital contamination. Specimen Source: Urine clean catch Yudelka Gottlieb MD LAB MICROBIOLOGY - GENERAL ORD ERABLES Final Result Performing Organization Address [facility]/ZIP Co de Phone Number [facility] [address] [place] [address] [phone] * (ABNORMAL) Lipid Panel, Standard (06/25/2024 9:27 AM EDT) Triglycerides 58 <150 mg/dL [facility] Comment:Desirable Triglyceri de: less than 150 mg/dLBorderline High Triglyceride 150-199 mg/dLHigh Triglyceride: 200-499 mg/dLVery High Triglyceride: greater than or equal to 5OO mg/dL Cholesterol 110 <200 mg/dL [facility] Comment:Desirable Cholestero l: less than 200 mg/dLBorderline High Cholesterol: 200-239 mg/dLHigh Cholesterol: greater than 239 mg/dL LDL Cholesterol Calculated 62 <100 mg/dL [facility] Comment:Desirable LDL: less than 100 mg/dLNear Optimal/Above Optimal LDL: 110- 129 mg/dLBorderline High LDL: 130-159 mg/dLHigh LDL: 160-189 mg/dLVery High LDL: greater than or equal to 190 mg/dL HDL Cholesterol 37(L) >40 mg/dL [facility] Comment:Desirable HDL: great er than 40 mg/dL Note: This HDL assay may give artificially low results in patients with liver disease. Blood Venous blood specimen / Unknown 06/25/2024 9:27 AM EDT 06/25/2024 11:07 AM EDT [facility]AB[facility] Final Re sult Performing Organization Address City/[facility]/ZIP Co de Phone Number [facility] [address] [place] [address] [phone] * HIV-1/2 Antigen and Antibodies, Fourth Generation, with Reflexes (04/18/2023 12:05 PM EST) HIV AB/AG Nonreactive Nonreactive [facility] Comment:HIV-1 p24 Ag and/or HIV-1/HIV-2 Ab not detected.A test result that is nonreactive does not exclude thepossibility of exposure to or infection with HIV-1 and/orHIV-2. Nonreactive results in this assay for individualswith prior exposure to HIV-1 and/or HIV-2 may be due toantigen and antibody levels that are below the limit ofdetection of this assay.The [employer] HIV Ag/Ab Combo assay result andsupplemental assay results should be interpreted inconjunction with the patient's clinical presentation,history and other laboratory results. If the results areinconsistent with clinical evidence, additional testing issuggested to confirm the result. Blood Venous blood specimen / Unknown 04/18/2023 12:05 PM EST 04/18/2023 1:04 PM EST Laya Bundy MD LAB BLOOD ORDERABLES Final Result [facility] [address] [place] [phone] * Pap Smear (02/19/2023 10:40 AM EST) 02/19/2023 10:4 0 AM EST 02/20/2023 10:45 AM EST Narrative [facility] - 03/11/2023 7:55 AM EST ----- ------- Name: Fabiola Varela Age/Sex: 27/F : 1995 Unit#: [id number] Attend Dr: Sofy [facility] Re02/19/23 Status: DEP REF Location: [facility] Disch: ----- ------- SPEC : [id number] RECD: 02/20/23 STATUS: LUZ MARINA DELAROSA NUM: [id number] SERGO: 02/19/[address] EN[facility]ED: 02/21/23 SP TYPE: Pap Smr OTHR DR: ORDERED: Pap Smear Interpretation Satisfactory for evaluation. No endocervical cells seen. Blood. Mild inflammation. Negative for intraepithelial lesion or malignancy. Clinical Information LMP: Unknown date Previous PAP test: Unknown date/findings Material Received ThinPrep-Cervical ----- ------- Signed (signature on file) J CARLOS Pena (ASCP) 03/11/23 0755 ----- ------- END OF REPORT [facility] LAB CYTOLOGY ORDERABLES Final Result [facility] [address] [place] [address] [phone] * Hepatitis C Ab (06/28/2022 2:05 PM EDT) Hepatitis C Antibody Nonreactive Nonreactive [facility] Comment:Antibodies to HCV no t detected; does not exclude early acuteHCV infection. 06/28/2022 2:05 PM EDT 06/28/2022 2:05 PM EDT us [facility] External Provider LAB BLO OD ORDERABLES Final Result [facility] [address] [place] [phone] [phone] from Last 3 Months or Most Recently Relevant to Health Maintenance [facility] [place] [facility] C3 Care Teams Modern Languages Professor Relationship Specialty Start Date End Date Sofy Cardenas FNP [address] [place] [address] PCP - General Family Medicine 11/30/21 Paul Yu FNP [address], [place] Nurse Practitioner Family Medicine 02/26/23
--- OUTSIDE RECORDS SUMMARY | 2025-02-08 18:36 | XMS_ITS | Encounter Summary ---
Author Organization [facility] Address [address] [place], [place] [phone] Phone Care Team Providers Care Glue Cook Name Role Phone Ari Latham MD Primary Care Provider Joseph cortes Encounter Details Date Type Department Care Team (Late st Contact Info) Description 05/22/2010 Documentation [facility] Family Medicine [address] [place], [place] [phone] Family Medicine, Physician [facility] [place] [address] Social History Tobacco Use Types Packs/Day Years [...] on filedocumented in this encounter Care Teams Glue Cook Relationship Specialty Start Date End Date Ari Latham MD PCP - General 11/15/16 07/07/22 documented as of this encounter
--- OUTSIDE RECORDS SUMMARY | 2025-02-08 18:36 | XMS_ITS | Encounter Summary ---
Author Organization [employer] Address [address] [place] [address] Care Team Providers Care Bookkeeper Assistant Name Role Phone Sofy Cardenas [facility] Primary Care Provider [phone] Paul Yu Unavailable Unavailable Reason for Visit * Reason Onset Date Comments Results 02/03/2025 Encounter Details Date Type Department Care Team ([facility] st Contact Info) Description 02/03/2025 Telephone [facility] [address] [place], [place] [phone] [place] Sofy [facility] [address] [place] [address] Results Social History Tobacco Use Types Packs/Day [...] with others, in a hotel, in a fdc, living outside on the street, on a [...] encounter Miscellaneous Notes * Telephone Encounter - Leslie Yeboah RN - 02/03/2025 3:43 PM EDT Lab results still pending. TC placed to pt regarding lab results. Advised awaiting lab results and will contact with results. Pt verbalized understanding and denies questions at this time. * Telephone Encounter - Bettina Gavin - 02/03/2025 3:25 PM EDT TC from pt requesting call back regarding Results. Type of results: Urine Date when done: 02/02 Facility: [facility] documented in this encounter Plan of Treatment Upcoming Encounters Date Type Department Care Team (Late st Contact Info) Description 02/14/2025 1:45 PM EST Office Visit [facility] [address] [place] [address] [facility], [facility] [address] [place], [place] [phone] documented as of this encounter Visit Diagnoses Not on filedocumented in this encounter Additional Health Concerns Assessment Noted Time PHQ-9 Depression Total Score: 10 025 9:23 AM EDT documented as of this encounter Care Teams Bookkeeper Assistant Relationship Specialty Start Date End Date Sofy Cardenas FNP [address] [place] [address] PCP - General Family Medicine 11/30/21 Paul Yu FNP [address] [place] [address] Nurse Practitioner Family Medicine 02/26/23 documented as of this encounter
--- OUTSIDE RECORDS SUMMARY | 2025-02-08 18:36 | XMS_ITS | Encounter Summary ---
Author Organization [facility] Address [address] [place], [place] [phone] Phone Care Team Providers Care Test And Research Reactor Operator Name Role Phone Ari Latham MD Primary Care Provider Joseph cortes Encounter Details Date Type Department Care Team (Late st Contact Info) Description 06/11/2012 Documentation [facility] [place] [address] [place], [place] [phone] Family Medicine, Physician [place] [address] Social History Tobacco Use Types Packs/Day Years [...] filedocumented in this encounter Care Teams Test And Research Reactor Operator Relationship Specialty Start Date End Date Ari Latham MD PCP - General 11/15/16 07/07/22 documented as of this encounter
--- OUTSIDE RECORDS SUMMARY | 2025-02-08 18:36 | XMS_ITS | Encounter Summary ---
Author Organization [facility] Address [address] [place], [place] [phone] Phone Care Team Providers Care Customer Operations Intern Name Role Phone Ari Latham MD Primary Care Provider Joseph cortes Encounter Details Date Type Department Care Team (Late st Contact Info) Description 11/27/2011 Documentation [facility] [place] [address] [place], [place] [phone] Family Medicine, Physician [facility] [place] [address] Social History Tobacco Use Types Packs/Day Years [...] filedocumented in this encounter Care Teams Customer Operations Intern Relationship Specialty Start Date End Date Ari Latham MD PCP - General 11/15/16 07/07/22 documented as of this encounter
--- OUTSIDE RECORDS SUMMARY | 2025-02-08 18:36 | XMS_ITS | Encounter Summary ---
Author Organization [employer] Address [address] [facility] [address]t [place] [address] Care Team Providers Care Facility Technician Name Role Phone Ronald Sofy [facility] Primary Care Provider [phone] Paul Yu Unavailable Unavailable Encounter Details Date Type Department Care Team (Late st Contact Info) Description 09/16/2023 Orders Only [facility] [address] [place], [place] [phone] Lanny Lamb FNP [address] [place] [address] Social History Tobacco Use Types Packs/Day Years [...] Description 02/14/2025 1:45 PM EST Office Visit [facility] [address] [place], [place] [phone] [facility] [address] [place], [place] [phone] documented as of this encounter Procedures Procedure Name Priority Date/Time Associated Diagnosis Comments XR KNEE 1-2 VIEWS LEFT Routine 10/01/2023 2:15 AM EDT documented in this encounter Results * XR Knee 1-2 Views Left (10/01/2023 2:15 AM EDT) Anatomical Region Laterality Modality Lower Extremities, Knee Left [facility] 10/01/2023 2:15 AM EDT Narrative 10/01/2023 3:26 AM EDT [address] [address] XRay Report Signed Patient: Fabiola Varela MR#: [id number] : 1995 Acct:[id number] Age/Sex: 27 / F ADM Date: 10/01/23 Loc: .ED Attending Dr: Ordering Physician: Ernestine Lassiter MD Date of Service: 10/01/23 Procedure(s): XR knee LT 2V Accession Number(s): [id number] cc: Ernestine Lassiter MD; [facility] EXAMINATION: XR KNEE, LEFT CLINICAL INFORMATION: Fall/pain. [...] in OV> 10/01/23 0322 DD/ 4 TD/TT: Manager Call Center: [facility] Procedure Note Donotuseinterpreter, Image - 10/01/2023 [place] [address] XRay Report Signed Patient: Fabiola VarelaMR#: [id number] : 1995Acct:[id number] Age/Sex: 27 FADM Date: 10/01/23 Loc: .ED Attending Dr: Ordering Physician: Ernestine Lassiter MD Date of Service: 10/01/23 Procedure(s): XR knee LT 2V Accession Number(s): [id number] cc: Ernestine Lassiter MD; [facility] EXAMINATION: XR KNEE, LEFT CLINICAL INFORMATION: Fall/pain. [...] in OV> 10/01/23 0322 DD/ 0215 TD/TT: Manager Call Center: [facility] External Provider IMG XR PROCEDURES Edited Result - Final documented in this encounter Visit Diagnoses Not on filedocumented in this encounter Additional Health Concerns Assessment Noted Time PHQ-9 Depression Total Score: 2 07/07/19 24 10:19 AM EDT documented as of this encounter Care Teams Facility Technician Relationship Specialty Start Date End Date Sofy Cardenas FNP [address] [place] [address] PCP - General Family Medicine 11/30/21 Paul Yu FNP [address] [place] [address] Nurse Practitioner Family Medicine 02/26/23 documented as of this encounter
--- OUTSIDE RECORDS SUMMARY | 2025-02-08 18:36 | XMS_ITS | Encounter Summary ---
Author Organization [facility] Address [address] [place], [place] [phone] Phone Care Team Providers Care Dragline Operator Name Role Phone Ari Latham MD Primary Care Provider Joseph cortes Encounter Details Date Type Department Care Team (Late st Contact Info) Description 06/15/2011 Documentation [facility] [place] Medicine [address] [place], [place] [phone] Family Medicine, Physician [facility] [place] [address] Social History Tobacco Use Types Packs/Day Years [...] on filedocumented in this encounter Care Teams Dragline Operator Relationship Specialty Start Date End Date Ari Latham MD PCP - General 11/15/16 07/07/22 documented as of this encounter
--- OUTSIDE RECORDS SUMMARY | 2025-02-08 18:36 | XMS_ITS | Encounter Summary ---
Author Organization [employer] Address [address] [place] [address] [place] [address] Care Team Providers Care Museum Tour Guide Name Role Phone [facility] Primary Care Provider [phone] Paul Yu Unavailable Unavailable Reason for Visit * Reason Onset Date Comments Results 06/07/2022 Encounter Details Date Type Department Care Team ([facility] st Contact Info) Description 06/07/2022 Telephone [facility] [address] [place], [place] [phone] [facility] [address] [place] [address] Results Social History Tobacco Use Types Packs/Day [...] 05/29/2022. Please contact pt with results at [phone] documented in this encounter Plan of Treatment Upcoming Encounters Date Type Department Care Team (Late st Contact Info) Description 02/14/2025 1:45 PM EST Office Visit [facility] [address] [place] [address] Sofy Cardenas FNP [address] [place] [address] documented as of this encounter Visit Diagnoses Not on filedocumented in this encounter Additional Health Concerns Assessment Noted Time PHQ-9 Depression Total Score: 3 05/23/19 23 11:16 AM EST documented as of this encounter Care Teams Museum Tour Guide Relationship Specialty Start Date End Date Sofy Cardenas FNP [address] [place] [address] PCP - General Family Medicine 11/30/21 Paul Yu FNP [address] [place] [address] Nurse Practitioner Family Medicine 02/26/23 documented as of this encounter
--- OUTSIDE RECORDS SUMMARY | 2025-02-08 18:37 | XMS_ITS | Encounter Summary ---
Author Organization [facility] Address [address] [facility] [address] [place] [address] Phone Care Team Providers Care Installer Technician Name Role Phone Sofy Cardenas Primary Care Provider [phone] Encounter Details Date Type Department Care Team (Late st Contact Info) Description 07/15/2022 Procedure Pass [facility] DEPT [address] [place] [phone] Social History Tobacco Use Types Packs/Day Years [...] on filedocumented in this encounter Care Teams Installer Technician Relationship Specialty Start Date End Date Sofy Cardenas FNP [address] [place] [address] PCP - General 12/26/21 documented as of this encounter Additional Source Comments The information contained in this document represents components of the legal health record. It is not the complete legal health record.[facility]
--- OUTSIDE RECORDS SUMMARY | 2025-02-08 18:37 | XMS_ITS | Encounter Summary ---
Author Organization [facility] Address [address] [place] [address] Phone Care Team Providers Care Precipitation Equipment Tender Name Role Phone Rosi Altamirano NP Primary Care Provider [facility] Sofy Cardenas Primary Care Provider [phone] Encounter Details Date Type Department Care Team (Late st Contact Info) Description 07/16/2021 Procedure Pass [facility] Admitting Dept Virtual Department [address] [place] [address] Social History Tobacco Use Types Packs/Day Years [...] on filedocumented in this encounter Care Teams Precipitation Equipment Tender Relationship Specialty Start Date End Date Rosi Altamirano NP PCP - General 01/04/21 12/25/21 Sofy Cardenas FNP [address] [place] [address] PCP - General 12/26/21 documented as of this encounter Additional Source Comments The information contained in this document represents components of the legal health record. It is not the complete legal health record.[facility]
--- OUTSIDE RECORDS SUMMARY | 2025-02-08 18:37 | XMS_ITS | Encounter Summary ---
Author Organization [employer] Address [address] [place] [address] [place] [address] Care Team Providers Care Safety Counselor Name Role Phone Sofy Cardenas SOFT HAT BINDER Primary Care Provider [phone] Paul Yu SOFT HAT BINDER Unavailable Unavailable Reason for Visit * Reason Onset Date Comments Results 02/07/2025 Encounter Details Date Type Department Care Team ([facility] st Contact Info) Description 02/07/2025 Results Follow-Up [facility] MEDICINE [address] [place] [address] Yudelka Gottlieb MD [address] [place] [address] POCT Urinalysis, Chlamydia/N. Gonorrhoeae RNA, TMA, Vaginal, Culture, Urine, Routine Social History Tobacco Use Types Packs/Day Years [...] the past 12 months, has t he [employer], gas, oil or water [employer] threatened to shut off services in your [...] as of this encounter Miscellaneous Notes * Addendum Note - Jerilyn Vitale RN - 02/08/2025 3:21 PM ESTAddended by: JERILYN VITALE on: 02/08/2025 03:21 PM Modules accepted: Orders * Telephone Encounter - Jerilyn Vitale RN - 02/08/2025 1:25 PM EST TC placed to pt. And advised of urine specimen and swab results showing no infection. Pt reports she is still having the vaginal discharge, bought an over the counter cream for yeast infection and has been using x 2 days which has decreased the amount of discharge but still persistent. Pt. Very upset she was not tested for yeast or BV and was tested for STI as she reports she is not sexually active and has had multiple yeast infections in the past, which is what this symptoms feels like and what she states she asked the provider for. Reviewed information with team provider. Agreeable to place order for BV and yeast and have pt. Come in for self swab. Pt. Presented to clinic, swab collected. Otherwise requests treatment for yeast infection, prescription pended. Pt. Will be contacted for results if + BV, pt. States she prefers po treatment if +. * Result Encounter Note - Yudelka Gottlieb MD - 02/07/2025 10:39 AM EST Please let patient know that infectious labs (G/C) and urine culture are negative for clear bacterial infection. How is she feeling? documented in this encounter Plan of Treatment Upcoming Encounters Date Type Department Care Team (Late st Contact Info) Description 02/14/2025 1:45 PM EST Office Visit [facility] MEDICINE [address] [place] [address] RonaldSofy tadeo [facility] [address] [place] [address] Scheduled Orders Name Type Priority Associated Diagnoses Orde r Schedule Bacterial Vaginosis Panel Microbiology Routine Vaginal discharge Ordered: 02/08/2025 documented as of this encounter Visit Diagnoses Diagnosis Vaginal discharge Leukorrhea, not specified as infective documented in this encounter Additional Health Concerns Assessment Noted Time PHQ-9 Depression Total Score: 10 09/24/ 025 9:23 AM EDT documented as of this encounter Care Teams Safety Counselor Relationship Specialty Start Date End Date Sofy Cardenas FNP [address] [place] [address] PCP - General Family Medicine 11/30/21 Paul Yu FNP [address] [place] [address] Nurse Practitioner Family Medicine 02/26/23 documented as of this encounter
--- OUTSIDE RECORDS SUMMARY | 2025-02-08 18:37 | XMS_ITS | Encounter Summary ---
Author Organization [facility] Address [address] [place], [place] [address] Phone Care Team Providers Care Casting And Curing Operator Name Role Phone Ari Latham MD Primary Care Provider Joseph cortes Encounter Details Date Type Department Care Team (Late st Contact Info) Description 03/06/2010 Documentation [facility] Family Medicine [address] [place], [place] [id number] Family Medicine, Physician [facility] [place] [address] Social History Tobacco Use Types Packs/Day Years [...] filedocumented in this encounter Care Teams Casting And Curing Operator Relationship Specialty Start Date End Date Ari Latham MD PCP - General 11/15/16 07/07/22 documented as of this encounter
--- OUTSIDE RECORDS SUMMARY | 2025-02-08 18:37 | XMS_ITS | Encounter Summary ---
Author Organization [facility] Address [address] [place] [address] Phone Care Team Providers Care Transport Coordinator Name Role Phone Rosi Altamirano NP Primary Care Provider U Sofy Roberts Primary Care Provider [phone] Encounter Details Date Type Department Care Team (Late st Contact Info) Description 06/07/2021 Procedure Pass [address] [address] Social History Tobacco Use Types Packs/Day Years [...] on filedocumented in this encounter Care Teams Transport Coordinator Relationship Specialty Start Date End Date Rosi Altamirano NP PCP - General 01/04/21 12/25/21 Sofy Cardenas FNP [address] [place] [address] PCP - General 12/26/21 documented as of this encounter Additional Source Comments The information contained in this document represents components of the legal health record. It is not the complete legal health record.[facility]
--- OUTSIDE RECORDS SUMMARY | 2025-02-08 18:37 | XMS_ITS | Clinical Summary ---
Author Organization [facility] Address [address] [place] [address] Care Team Providers Care Back Panel Padder Name Role Phone [facility] Primary Care Provider [phone] Allergies Active Allergy Reactions Criticality Noted Date [...] Mass Index - - Plan of Treatment Upcoming Encounters Date Type Department Care Team (Late st Contact Info) Description 08/16/2025 10:30 AM EDT Follow-Up [facility] [address] [place] [address] Jered Yang MD [address] [facility] [place] [address] Health Maintenance Due Date Last Done Comments [...] topic Insurance [facility] Care Teams Back Panel Padder Relationship Specialty Start Date End Date [facility] [address] [place] [address] PCP - General 08/12/22
--- OUTSIDE RECORDS SUMMARY | 2025-02-08 18:37 | XMS_ITS | Encounter Summary ---
Author Organization [employer] Address [address] [place] [address] Care Team Providers Care Broker In Charge Name Role Phone [facility] Primary Care Provider [phone] Paul Yu Unavailable Unavailable Reason for Visit * Reason Onset Date Comments Appointment Request 11/08/2022 Encounter Details Date Type Department Care Team ([facility] st Contact Info) Description 11/08/2022 Telephone [facility] MEDICINE [address] [place] [address] [facility] [address] [place] [address] Appointment Request Social History Tobacco Use Types [...] and understood,. Advised to give call to [facility] if any questions or concerns. * Telephone Encounter - Ade Antoni - 11/08/2022 1:58 PM EDT Tc from patient requesting a f/u appt, due to getting her gall bladder removed on 11/07/22 at [facility]. documented in this encounter Plan of Treatment Upcoming Encounters Date Type Department Care Team (Late st Contact Info) Description 02/14/2025 1:45 PM EST Office Visit [facility] MEDICINE [address] [place] [address] Sofy Cardenas FNP [address] [place] [address] documented as of this encounter Visit Diagnoses Not on filedocumented in this encounter Additional Health Concerns Assessment Noted Time PHQ-9 Depression Total Score: 3 09/27/19 23 9:18 AM EDT documented as of this encounter Care Teams Broker In Charge Relationship Specialty Start Date End Date Sofy Cardenas FNP [address] [place] [address] PCP - General Family Medicine 11/30/21 Paul Yu FNP [address] [place] [address] Nurse Practitioner Family Medicine 02/26/23 documented as of this encounter
--- OUTSIDE RECORDS SUMMARY | 2025-02-08 18:37 | XMS_ITS | Encounter Summary ---
Author Organization [facility] Address [address] [place] [address] [place] [address] Phone Care Team Providers Care Lens Assistant Name Role Phone Rosi Altamirano FOREST FIRE CONTROL OFFICER Primary Care Provider Sofy Roberts CONFERENCE ASSISTANT Primary Care Provider [phone] Encounter Details Date Type Department Care Team (Late st Contact Info) Description 02/27/2021 Ancillary Orders [facility] [address] [place] [address] Kathy Carlisle PA-C [address] [place] [address] [email or web address] pain Social History Tobacco Use Types [...] quadrant documented in this encounter Care Teams Lens Assistant Relationship Specialty Start Date End Date Rosi Altamirano NP PCP - General 01/04/21 12/25/21 Sofy Cardenas FNP [address] [place] [address] PCP - General 12/26/21 documented as of this encounter Additional Source Comments The information contained in this document represents components of the legal health record. It is not the complete legal health record.[facility]
--- OUTSIDE RECORDS SUMMARY | 2025-02-08 18:37 | XMS_ITS | Encounter Summary ---
Author Organization [facility] Address [address] [facility] [address] [place] [address] Phone Care Team Providers Care Recreation Facilities Supervisor Name Role Phone Rosi Altamirano NP Primary Care Provider Sofy Roberts [facility] Primary Care Provider [phone] Encounter Details Date Type Department Care Team (Latest Contact Info) Description 06/29/2021 Transcribe Orders [facility] [address] [facility] [address], [place] [address] [address] [place] [address] [email or web address] Problems with hearing (Primary Dx) Social History [...] Primary documented in this encounter Care Teams Recreation Facilities Supervisor Relationship Specialty Start Date End Date Rosi Altamirano NP PCP - General 01/04/21 12/25/21 [place] FNP [address] [place] [address] PCP - General 12/26/21 documented as of this encounter Additional Source Comments The information contained in this document represents components of the legal health record. It is not the complete legal health record.[facility]
--- OUTSIDE RECORDS SUMMARY | 2025-02-08 18:37 | XMS_ITS | Encounter Summary ---
Author Organization [facility] Address [address] [place] [address] 7 [place] [address] Care Team Providers Care Medical Scribe Name Role Phone [place] Sofy [facility] Primary Care Provider [phone] Paul Yu Unavailable Unavailable Reason for Visit * Reason Comments Med Refill Encounter Details Date Type Department Care Team (Late st Contact Info) Description 12/11/2022 Refill [facility] MEDICINE [address] [place], [place] [phone] Yaima Shah FNP [address] [place] [address] Social History Tobacco Use Types Packs/Day Years [...] Description 02/14/2025 1:45 PM EST Office Visit [facility] MEDICINE 230 [place] [address] Sofy Cardenas [facility] [address] [place] [address] documented as of this encounter Visit Diagnoses Not on filedocumented in this encounter Additional Health Concerns Assessment Noted Time PHQ-9 Depression Total Score: 3 09/27/19 23 9:18 AM EDT documented as of this encounter Care Teams Medical Scribe Relationship Specialty Start Date End Date Sofy Cardenas FNP [address] [place] [address] PCP - General Family Medicine 11/30/21 Paul Yu FNP [address] [place] [address] Nurse Practitioner Family Medicine 02/26/23 documented as of this encounter
--- OUTSIDE RECORDS SUMMARY | 2025-02-08 18:37 | XMS_ITS | Encounter Summary ---
Author Organization [facility] Address [address] [place] [address] Care Team Providers Care Hat Cleaner Name Role Phone Ronald [place] Primary Care Provider [phone] Encounter Details Date Type Department Care Team (Late st Contact Info) Description 10/29/2021 [facility] Only [facility] Nuclear Medicine [address] [place] [address] Casey Lomeli MD 55 [place] [address] Social History Tobacco Use Types Packs/Day Years [...] AM EDT Follow-Up [facility] [address] [place] [address] Jered Yang MD 55 [facility] [place] [address] documented as of this encounter Visit Diagnoses Not on filedocumented in this encounter Care Teams Hat Cleaner Relationship Specialty Start Date End Date Ronald Sofy [address] [place] [address] PCP - General 08/12/22 documented as of this encounter
--- OUTSIDE RECORDS SUMMARY | 2025-02-08 18:37 | XMS_ITS | Encounter Summary ---
Author Organization [employer] Address [address] [place] [address] 7 [place] [address] Care Team Providers Care Knit Goods Cutter Hand Name Role Phone [facility] Primary Care Provider [phone] Paul Yu Unavailable Unavailable Reason for Visit * Reason Comments Pre-visit Planning SDOH screening was c ompleted on 06/28/2024 Encounter Details Date Type Department Care Team ([facility] st Contact Info) Description 02/07/2025 Patient Outreach [facility] MEDICINE [address] [place] [address] [facility] [address] [place] [address] Pre-visit Planning (SDOH screening was completed on 06/28/2024) Social History Tobacco Use Types Packs/Day Years [...] with others, in a hotel, in a senior living, living outside on the street, on a [...] the past 12 months, has t he [employer], gas, oil or water company threatened to [...] AM EDT documented as of this encounter Progress Notes * Velma Valera - 02/07/2025 11:39 AM EST FELICIANO Burton placed successful outbound call to patient for pre-visit planning. Patient name and confirmed. Patient confirms appt date and time, and has transportation arrangements. Biggest concern for appointment at this time is would like to know if the results are back for BV/yeast infection. Patient advised to bring to appointment a photo id and insurance card. Appropriate screenings completed in anticipation of appointment. documented in this encounter Plan of Treatment Upcoming Encounters Date Type Department Care Team (Late st Contact Info) Description 02/14/2025 1:45 PM EST Office Visit [facility] MEDICINE [address] [place] [address] [facility] [address] [place], [place] [phone] documented as of this encounter Visit Diagnoses Not on filedocumented in this encounter Additional Health Concerns Assessment Noted Time PHQ-9 Depression Total Score: 10 025 9:23 AM EDT documented as of this encounter Care Teams Knit Goods Cutter Hand Relationship Specialty Start Date End Date Sofy Cardenas FNP [address] [place] [address] PCP - General Family Medicine 11/30/21 Paul Yu FNP [address] [place] [address] Nurse Practitioner Family Medicine 02/26/23 documented as of this encounter
--- OUTSIDE RECORDS SUMMARY | 2025-02-08 18:37 | XMS_ITS | Encounter Summary ---
Author Organization [employer] Address [address] [place] [address] 7 [place] [address] Care Team Providers Care Cardiac Cath Technician Name Role Phone Sofy Cardenas METAL CONTROL WORKER Primary Care Provider [phone] Paul Yu METAL CONTROL WORKER Unavailable Unavailable Encounter Details Date Type Department Care Team ([facility] st Contact Info) Description 10/15/2024 Orders Only [facility] MEDICINE [address] [place] [address] Laya Herring MD [address] [place] [address] Social History Tobacco Use Types Packs/Day Years [...] with others, in a hotel, in a alf, living outside on the street, on a [...] Description 02/14/2025 1:45 PM EST Office Visit [facility] MEDICINE [address] [place] [address] Sofy Cardenas FNP [address] [place] [address] documented as of this encounter Visit Diagnoses Not on filedocumented in this encounter Additional Health Concerns Assessment Noted Time PHQ-9 Depression Total Score: 10 025 9:23 AM EDT documented as of this encounter Care Teams Cardiac Cath Technician Relationship Specialty Start Date End Date Sofy Cardenas FNP [address] [place] [address] PCP - General Family Medicine 11/30/21 Paul Yu FNP [address] [place] [address] Nurse Practitioner Family Medicine 02/26/23 documented as of this encounter
--- OUTSIDE RECORDS SUMMARY | 2025-02-08 18:37 | XMS_ITS | Encounter Summary ---
Author Organization [facility] Address [address] [place] [address] Care Team Providers Care Selling Specialist Name Role Phone [facility] Primary Care Provider [phone] Reason for Visit * Reason Onset Date Comments schedule an appt 08/29/2021 Encounter Details Date Type Department Care Team (Late st Contact Info) Description 08/29/2021 Telephone [facility] Central Scheduling Department [address] [place] [address] Telephone Intake, Staff schedule an appt Social [...] for Fabiola There is a rfrl in [facility] No dates are avaible for in person or TH Pleas give PT a call back at [phone] Fabiola is hearing impaired she uses a [...] AM EDT Follow-Up [facility] [address] [place] [address] Jered Yang MD [address] [facility] [place] [address] documented as of this encounter Visit Diagnoses Not on filedocumented in this encounter Care Teams Selling Specialist Relationship Specialty Start Date End Date [facility] [address] [place] [address] PCP - General 08/12/22 documented as of this encounter
--- OUTSIDE RECORDS SUMMARY | 2025-02-08 18:37 | XMS_ITS | Clinical Summary ---
Author Organization [facility] Address [address] [place] [address] Phone Care Team Providers Care Linotype Mechanic Name Role Phone Sofy Cardenas HECTOR Primary Care Provider [phone] Allergies Active Allergy Reactions Criticality Noted Date [...] Active ferrous sulfate 325 mg (65 mg yurok iron) tablet Take 325 mg by mouth [...] She will continue with her therapist at [facility]. F/U 6 weeks. She agrees with the [...] Miscarried on 12/28/21 Was seen at [facility]. US report in media This is her [...] 01/04/2021 Major depressive disorder 01/04/2021 Overview (06/26/2022): [facility] Tobacco use 01/04/2021 Complex renal cyst 09/22/2020 [...] reflux disease 06/15/2011 Overview (12/27/2021): Admitted to [facility] 12/26/2021 for IV fluids, zofran, and phenergan Resolved Problems Problem Noted Date Diagnosed Date Resolved Date Hyperemesis gravidarum 12/27/202104/22 Overview (12/27/2021): Admitted to [facility] 12/26 for IV hydration and IV [...] without obstruction 01/09/20212023 Overview (12/27/2021): Admitted to [facility] 12/26/2021 for IV fluids, zofran, and phenergan Immunizations Immunization Administration Dates Next Due COVID-19 (Pre-01/27) Pfizer Vaccine, mRNA, radha-sucrose, PF 11/21/2021 DTP 07/06/1995, 5,06/04/1994,03/06 AZbP-Lwr-OJC 05/07/1995, 5,06/04/1994,03/06 Dtap, 5 Pertussis Antigens 08/04/1998 [...] this topic Medical Devices Implanted Type Area Wet Pour Mixer Device Identifier Shelf Expiration Date Model / Serial / Lot Implant Cochlear 3d Ultra [facility] [id number] Implanted:Qty: 1 on 02/18/2022 by Ari Loco MD, PhD at [facility] Right: Ear [employer]ED [employer] 10/04/2024 CI-1601-04 / [id number] / Implant Cochlear 3d Ultra [facility] [id number] Implanted:Qty: 1 on 07/15/2022 by Ari Loco MD, PhD at [facility] Left: Ear [employer] 11/04/2024 CI-1601-04 / [id number] / [id number] [place] [address] [place] [address] C3 ACO C3 ACO C3 ACO C3 ACO C3 ACO C3 ACO C3 ACO C3 ACO C3 ACO Advance Directives For more information, please contact: [phone] (9AM - 5PM [facility], Friday-Friday) Documents on File Type Date Recorded Patient Community Health Director Expl anation Healthcare Proxy 02/19/2022 3:11 PM Care Teams Linotype Mechanic Relationship Specialty Start Date End Date Sofy Cardenas FNP [address] [place] [address] PCP - General 12/26/21 Additional Source Comments The information contained in this document represents components of the legal health record. It is not the complete legal health record.[facility]
--- OUTSIDE RECORDS SUMMARY | 2025-02-08 18:37 | XMS_ITS | Encounter Summary ---
Author Organization [facility] Address [address] [place] [address] Phone Care Team Providers Care Meat Stock Clerk Name Role Phone Rosi Altamirano NP Primary Care Provider U Sofy Roberts Primary Care Provider [phone] Encounter Details Date Type Department Care Team (Late st Contact Info) Description 10/31/2021 Procedure Pass [facility] Imaging - [facility] [address] [place] [address] Social History Tobacco Use Types Packs/Day Years [...] on filedocumented in this encounter Care Teams Meat Stock Clerk Relationship Specialty Start Date End Date Rosi Altamirano NP PCP - General 01/04/21 12/25/21 Sofy Cardenas FNP [address] [place] [address] PCP - General 12/26/21 documented as of this encounter Additional Source Comments The information contained in this document represents components of the legal health record. It is not the complete legal health record.[facility]
--- OUTSIDE RECORDS SUMMARY | 2025-02-08 18:37 | XMS_ITS | Encounter Summary ---
Author Organization [employer] Address [address] [place] [address] 7 [place] [address] Care Team Providers Care Cardiac Cath Rn Name Role Phone [place] [facility] Primary Care Provider [phone] Paul Yu Unavailable Unavailable Reason for Visit * Reason Onset Date Comments triage 07/05/2022 Encounter Details Date Type Department Care Team ([facility] st Contact Info) Description 07/05/2022 Telephone [facility] MEDICINE [address] [place], [place] [phone] [facility] [address] [place] [address] triage Social History Tobacco Use Types Packs/Day [...] didn't answer. Call to Pt partner , aDwit, who called originally. Dawit reports Pthas been passing out, vomiting and not doing well since starting doxycycline. Pt is in ED at time of call. Advised to call [facility] after ED eval for follow up and [...] 02/14/2025 1:45 PM EST Office Visit [facility] MEDICINE [address] [place] [address] Sofy Cardenas FNP [address] [place] [address] documented as of this encounter Visit Diagnoses Not on filedocumented in this encounter Additional Health Concerns Assessment Noted Time PHQ-9 Depression Total Score: 5 07/05/19 23 9:22 AM EDT documented as of this encounter Care Teams Cardiac Cath Rn Relationship Specialty Start Date End Date Sofy Cardenas FNP [address] [place] [address] PCP - General Family Medicine 11/30/21 Paul Yu FNP [address] [place] [address] Nurse Practitioner Family Medicine 02/26/23 documented as of this encounter
--- OUTSIDE RECORDS SUMMARY | 2025-02-08 18:37 | XMS_ITS | Encounter Summary ---
Author Organization [facility] Address [address] [place], [place] [address] Phone Care Team Providers Care Director Of Services Name Role Phone Ari Latham MD Primary Care Provider Joseph cortes Encounter Details Date Type Department Care Team (Late st Contact Info) Description 03/06/2010 Documentation [facility] Family Medicine [address] [place], [place] [phone] Family Medicine, Physician [facility] [place] [address] Social History Tobacco Use Types Packs/Day Years [...] in this encounter Care Teams Director Of Services Relationship Specialty Start Date End Date Ari Latham MD PCP - General 11/15/16 07/07/22 documented as of this encounter
--- OUTSIDE RECORDS SUMMARY | 2025-02-08 18:37 | XMS_ITS | Encounter Summary ---
Author Organization [facility] Address [address] [place] [address] Phone Care Team Providers Care Applications Architect Name Role Phone Rosi Altamirano SIGN ERECTOR Primary Care Provider chung RonaldSofy tadeo Adama CANE BURNER Primary Care Provider [phone] Reason for Referral * MRI/CAT Scan - Closed Specialty Diagnoses / Procedures Referred By Neri murdock Referred To Contact Radiology Diagnoses Liver hemangioma Procedures MRI Abdomen Sera Treviño PA-C Phone: tel: fax: mailto:[email or web address] Prenatal Referral ID Status Reason Start Date Expiration Date Visits Re quested Visits Authorized [id number] Closed 06/07/2021 06/07/2022 1 1 Encounter Details Date Type Department Care Team (Latest Contact Info) Description 06/07/2021 Transcribe Orders Virtual Department [address] [place] [address] Sera Treviño PA-C [address] [place] [address] [email or web address] Prenatal Liver hemangioma (Primary Dx) Social History Tobacco [...] hemangioma documented in this encounter Care Teams Applications Architect Relationship Specialty Start Date End Date Rosi Altamirano NP PCP - General 01/04/21 12/25/21 [place] FNP [address] [place] [address] PCP - General 12/26/21 documented as of this encounter Additional Source Comments The information contained in this document represents components of the legal health record. It is not the complete legal health record.[facility]
--- OUTSIDE RECORDS SUMMARY | 2025-02-08 18:37 | XMS_ITS | Encounter Summary ---
Author Organization [facility] Address [address] [place] [address] [place] [address] Phone Care Team Providers Care Embossing Press Operator Molded Goods Name Role Phone Rosi Altamirano GREY IRON MOLDER Primary Care Provider U Sofy Roberts ART THERAPY SPECIALIST Primary Care Provider [phone] Encounter Details Date Type Department Care Team (Late st Contact Info) Description 02/26/2021 Procedure Pass [facility], Ct Scan - [address] [address] Social History Tobacco Use Types Packs/Day Years [...] 02/26/2021 6:33 PM Sera Lawson, RN * [place] Suicide Severity Rating Scale (Screener/Recent Self-Report) Question [...] on filedocumented in this encounter Care Teams Embossing Press Operator Molded Goods Relationship Specialty Start Date End Date Rosi Altamirano NP PCP - General 01/04/21 12/25/21 [place]of[place] FNP [address] [place] [address] PCP - General 12/26/21 documented as of this encounter Additional Source Comments The information contained in this document represents components of the legal health record. It is not the complete legal health record.[facility]
--- OUTSIDE RECORDS SUMMARY | 2025-02-08 18:37 | XMS_ITS | Encounter Summary ---
Author Organization [facility] Address [address] [place] [address] Phone Care Team Providers Care Chief Fishery Division Name Role Phone Sofy Cardenas Primary Care Provider [phone] Encounter Details Date Type Department Care Team (Late st Contact Info) Description 07/22/2023 Procedure Pass [facility] PERIOP DEPT [address] [place] [address] Social History Tobacco Use Types Packs/Day Years [...] on filedocumented in this encounter Care Teams Chief Fishery Division Relationship Specialty Start Date End Date Sofy CardenasHECTOR [address] [place] [address] PCP - General 12/26/21 documented as of this encounter Additional Source Comments The information contained in this document represents components of the legal health record. It is not the complete legal health record.[facility]
--- OUTSIDE RECORDS SUMMARY | 2025-02-08 18:37 | XMS_ITS | Encounter Summary ---
Author Organization [facility] Address [address] [place], [place] [phone] Phone Care Team Providers Care Music Industry Internship Name Role Phone Ari Latham MD Primary Care Provider Joseph cortes Encounter Details Date Type Department Care Team (Late st Contact Info) Description 03/06/2010 Documentation [facility] [place] Medicine [address] [place], [place] [phone] Family Medicine, Physician [facility] [place] [address] Social History Tobacco Use Types Packs/Day Years [...] on filedocumented in this encounter Care Teams Music Industry Internship Relationship Specialty Start Date End Date Ari Latham MD PCP - General 11/15/16 07/07/22 documented as of this encounter
--- OUTSIDE RECORDS SUMMARY | 2025-02-08 18:38 | XMS_ITS | Encounter Summary ---
Author Organization [facility] Address [address] [place], [place] [address] Phone Care Team Providers Care Sweet Goods Machine Operator Name Role Phone Ari Latham MD Primary Care Provider Joseph cortes Encounter Details Date Type Department Care Team (Late st Contact Info) Description 09/05/2009 Documentation [facility] Family Medicine [address] [place], [place] [phone] Family Medicine, Physician [facility] [place] [address] Social History Tobacco Use Types Packs/Day Years [...] on filedocumented in this encounter Care Teams Sweet Goods Machine Operator Relationship Specialty Start Date End Date Ari Latham MD PCP - General 11/15/16 07/07/22 documented as of this encounter
--- OUTSIDE RECORDS SUMMARY | 2025-02-08 18:38 | XMS_ITS | Encounter Summary ---
Author Organization [facility] Address [address] [place], [place] [phone] Phone Care Team Providers Care Copping Machine Operator Name Role Phone Ari Latham MD Primary Care Provider Joseph cortes Encounter Details Date Type Department Care Team (Late st Contact Info) Description 02/24/2014 Documentation [facility] Family Medicine [address] [place], [place] [phone] Family Medicine, Physician [place] [address] Social History Tobacco Use Types Packs/Day Years [...] on filedocumented in this encounter Care Teams Copping Machine Operator Relationship Specialty Start Date End Date Ari Latham MD PCP - General 11/15/16 07/07/22 documented as of this encounter
--- OUTSIDE RECORDS SUMMARY | 2025-02-08 18:38 | XMS_ITS | Encounter Summary ---
Author Organization [facility] Address [address] [facility] [address] [place] [address] Phone Care Team Providers Care Waste Elimination Name Role Phone Sofy Cardenas HECTOR Primary Care Provider [phone] Encounter Details Date Type Department Care Team (Late st Contact Info) Description 09/28/2023 Procedure Pass [facility], Ct Scan - [address] [address] Social History Tobacco Use Types Packs/Day Years [...] 3:20 PM EDT Delores Gongora RN * [place] Suicide Severity Rating Scale (Screener/Recent Self-Report) Question [...] on filedocumented in this encounter Care Teams Waste Elimination Relationship Specialty Start Date End Date Sofy Cardenas FNP [address] [place] [address] PCP - General 12/26/21 documented as of this encounter Additional Source Comments The information contained in this document represents components of the legal health record. It is not the complete legal health record.[facility]
--- OUTSIDE RECORDS SUMMARY | 2025-02-08 18:38 | XMS_ITS | Encounter Summary ---
Author Organization [facility] Address [address] [place], [place] [phone] Phone Care Team Providers Care Hadoop Architect Name Role Phone Ari Latham MD Primary Care Provider Joseph cortes Encounter Details Date Type Department Care Team (Late st Contact Info) Description 08/09/2013 Documentation [facility] Family Medicine [address] [place], [place] [phone] Family Medicine, Physician [facility] [place] [address] Social History Tobacco Use Types Packs/Day Years [...] on filedocumented in this encounter Care Teams Hadoop Architect Relationship Specialty Start Date End Date Ari Latham MD PCP - General 11/15/16 07/07/22 documented as of this encounter
--- OUTSIDE RECORDS SUMMARY | 2025-02-08 18:38 | XMS_ITS | Encounter Summary ---
Author Organization [facility] Address [address] [place], [place] [phone] Phone Care Team Providers Care Advanced Manufacturing Associate Name Role Phone Ari Latham MD Primary Care Provider Joseph cortes Encounter Details Date Type Department Care Team (Late st Contact Info) Description 09/24/2013 Documentation [facility] Family Medicine [address] [place], [place] [phone] Family Medicine, Physician [facility] [place] [address] Social History Tobacco Use Types Packs/Day Years [...] on filedocumented in this encounter Care Teams Advanced Manufacturing Associate Relationship Specialty Start Date End Date Ari Latham MD PCP - General 11/15/16 07/07/22 documented as of this encounter
--- OUTSIDE RECORDS SUMMARY | 2025-02-08 18:38 | XMS_ITS | Encounter Summary ---
Author Organization [facility] Address [address] [place], [place] [phone] Phone Care Team Providers Care Egg Sorter Name Role Phone Ari Latahm MD Primary Care Provider Joseph cortes Encounter Details Date Type Department Care Team (Late st Contact Info) Description 09/10/2013 Documentation [facility] Family Medicine [address] [place], [place] [phone] Family Medicine, [place] [address] Social History Tobacco Use Types Packs/Day Years [...] on filedocumented in this encounter Care Teams Egg Sorter Relationship Specialty Start Date End Date Ari Latham MD PCP - General 11/15/16 07/07/22 documented as of this encounter
--- OUTSIDE RECORDS SUMMARY | 2025-02-08 18:38 | XMS_ITS | Encounter Summary ---
Author Organization [facility] Address [address] [place], [place] [address] Phone Care Team Providers Care Field Counsel Name Role Phone Ari Latham MD Primary Care Provider Joseph cortes Encounter Details Date Type Department Care Team (Late st Contact Info) Description 09/02/2013 Documentation [facility] Family Medicine [address] [place], [place] [phone] Family Medicine, Physician [facility] [place] [address] Social History Tobacco Use Types Packs/Day Years [...] filedocumented in this encounter Care Teams Field Counsel Relationship Specialty Start Date End Date Ari Latham MD PCP - General 11/15/16 07/07/22 documented as of this encounter
--- OUTSIDE RECORDS SUMMARY | 2025-02-08 18:38 | XMS_ITS | Encounter Summary ---
Author Organization [facility] Address [address] [place], [place] [address] Phone Care Team Providers Care Oracle Soa Architect Name Role Phone Ari Latham MD Primary Care Provider Joseph cortes Encounter Details Date Type Department Care Team (Late st Contact Info) Description 11/08/2013 Documentation [facility] Family Medicine [address] [place], [place] [phone] Family Medicine, [place] [address] Social History Tobacco Use Types Packs/Day Years [...] filedocumented in this encounter Care Teams Oracle Soa Architect Relationship Specialty Start Date End Date Ari Latham MD PCP - General 11/15/16 07/07/22 documented as of this encounter
--- OUTSIDE RECORDS SUMMARY | 2025-02-08 18:38 | XMS_ITS | Encounter Summary ---
Author Organization [employer] Address [address] [facility] 7 [place] [address] Care Team Providers Care Woodwork Salvage Inspector Name Role Phone HobartSofy tadeo CLINICAL SPECIALIST VASCULAR Primary Care Provider [phone] Paul Yu Unavailable Unavailable Encounter Details Date Type Department Care Team ([facility] st Contact Info) Description 02/12/2023 Telephone [facility] MEDICINE [address] [place], [place] [phone] [place]Sofy [facility] [address] [place], [place] [phone] Social History Tobacco Use Types Packs/Day Years [...] 02/14/2025 1:45 PM EST Office Visit [facility] MEDICINE [address] [place] [address] Sofy Cardenas FNP [address] [place] [address] documented as of this encounter Visit Diagnoses Not on filedocumented in this encounter Additional Health Concerns Assessment Noted Time PHQ-9 Depression Total Score: 1 12/17/19 23 1:45 PM EDT documented as of this encounter Care Teams Woodwork Salvage Inspector Relationship Specialty Start Date End Date Sofy Cardenas FNP [address] [place] [address] PCP - General Family Medicine 11/30/21 Paul Yu FNP [address] [place] [address] Nurse Practitioner Family Medicine 02/26/23 documented as of this encounter
--- OUTSIDE RECORDS SUMMARY | 2025-02-08 18:38 | XMS_ITS | Encounter Summary ---
Author Organization [employer] Address [address] [place] [address] 7 [place] [address] Care Team Providers Care Advertising Account Representative Name Role Phone [facility] Primary Care Provider [phone] Paul Yu Unavailable Unavailable Reason for Visit * Reason Onset Date Comments Nurse Triage 04/15/2023 Encounter Details Date Type Department Care Team ([facility] st Contact Info) Description 04/15/2023 Telephone [facility] MEDICINE [address] [place], [place] [phone] [facility] [address] [place] [address] Nurse Triage Social History Tobacco Use Types [...] accepted this outcome Please contact pt at [phone] documented in this encounter Plan of Treatment Upcoming Encounters Date Type Department Care Team (Late st Contact Info) Description 02/14/2025 1:45 PM EST Office Visit [facility] MEDICINE [address] [place] [address] Sofy Cardenas FNP [address] [place] [address] documented as of this encounter Visit Diagnoses Not on filedocumented in this encounter Additional Health Concerns Assessment Noted Time PHQ-9 Depression Total Score: 6 03/06/20 23 2:58 PM EST documented as of this encounter Care Teams Advertising Account Representative Relationship Specialty Start Date End Date Sofy Cardenas FNP [address] [place] [address] PCP - General Family Medicine 11/30/21 Paul Yu FNP [address] [place] [address] Nurse Practitioner Family Medicine 02/26/23 documented as of this encounter
--- OUTSIDE RECORDS SUMMARY | 2025-02-08 18:38 | XMS_ITS | Encounter Summary ---
Author Organization [facility] Address [address] [facility] [address] [place] [address] Phone Care Team Providers Care Infant Teacher Name Role Phone Sofy Cardenas Primary Care Provider [phone] Encounter Details Date Type Department Care Team (Late st Contact Info) Description 02/18/2022 Procedure Pass [facility] PERIOP DEPT [address] [place] [address] Social History Tobacco Use Types Packs/Day Years [...] on filedocumented in this encounter Care Teams Infant Teacher Relationship Specialty Start Date End Date Sofy Cardenas FNP [address] [place] [address] PCP - General 12/26/21 documented as of this encounter Additional Source Comments The information contained in this document represents components of the legal health record. It is not the complete legal health record.[facility]
--- OUTSIDE RECORDS SUMMARY | 2025-02-08 18:38 | XMS_ITS | Encounter Summary ---
Author Organization [facility] Address [address] [place], [place] [phone] Phone Care Team Providers Care Vp Informatics Name Role Phone Ari Latham MD Primary Care Provider Joseph cortes Encounter Details Date Type Department Care Team (Late st Contact Info) Description 11/08/2013 Documentation [facility] [place] [address] [place], [place] [phone] Family Medicine, Physician [place] [address] Social History Tobacco Use Types Packs/Day Years [...] filedocumented in this encounter Care Teams Vp Informatics Relationship Specialty Start Date End Date Ari Lathma MD PCP - General 11/15/16 07/07/22 documented as of this encounter
[2025-02-08 23:13] LABS: Bacterial Vaginosis PCR NEGATIVE (Negative); Candida Group PCR NOT DETECTED (Not Detect); Candida glab krusei PCR NOT DETECTED (Not Detect); Trichomonas vaginalis PCR NOT DETECTED (Not Detect)
== END 2025-02-08 16:24 | disposition home or self-care (01) ==
LOC: HO.HHCLNP 16:23
PROVIDERS: Visit Provider General Practice
DX: Z20.2 Contact with and (suspected) exposure to infections with a predominantly sexual mode of transmission (principal); N89.8 Other specified noninflammatory disorders of vagina
CPT/HCPCS: 81515

== ENCOUNTER 2025-02-14 08:12 | Outpatient (REF) | payer MEDICAID, SELFPAY ==
--- OUTSIDE RECORDS SUMMARY | 2025-02-14 08:32 | XMS_ITS | Encounter Summary ---
Author Organization [employer] Address [address] [place] [address] [place] [address] Care Team Providers Care Manager Multicultural Name Role Phone [place] [facility] Primary Care Provider [phone] Paul Yu Unavailable Unavailable Reason for Visit * Reason Onset Date Comments Results 06/07/2022 Encounter Details Date Type Department Care Team ([facility] st Contact Info) Description 06/07/2022 Telephone [facility] MEDICINE [address] [place], [place] [phone] [place] [facility] 230 [place] [address] Results Social History Tobacco Use Types Packs/Day [...] 05/29/2022. Please contact pt with results at [phone] documented in this encounter Plan of Treatment Upcoming Encounters Date Type Department Care Team (Late st Contact Info) Description 02/14/2025 1:45 PM EST Office Visit [facility] MEDICINE [address] [place] [address] Sofy Cardenas FNP [address] [place] [address] documented as of this encounter Visit Diagnoses Not on filedocumented in this encounter Additional Health Concerns Assessment Noted Time PHQ-9 Depression Total Score: 3 05/23/19 23 11:16 AM EST documented as of this encounter Care Teams Manager Multicultural Relationship Specialty Start Date End Date Sofy Cardenas FNP [address] [place] [address] PCP - General Family Medicine 11/30/21 Paul Yu FNP [address] [place] [address] Nurse Practitioner Family Medicine 02/26/23 documented as of this encounter
--- OUTSIDE RECORDS SUMMARY | 2025-02-14 08:32 | XMS_ITS | Encounter Summary ---
Author Organization [employer] Address [address] [place] [address] 7 [place] [address] Care Team Providers Care Wet And Dry Sugar Bin Operator Name Role Phone [place] [facility] Primary Care Provider [phone] Paul Yu Unavailable Unavailable Reason for Visit * Reason Comments Med Refill Encounter Details Date Type Department Care Team ([facility] st Contact Info) Description 02/09/2025 Refill [facility] MEDICINE 230 [place], [place] [phone] [facility] 230 [place] [address] Class 3 severe obesity due to excess calories with serious comorbidity and body mass index (BMI) of 50.0 to 59.9 in adult (HCC) Social History Tobacco Use Types Packs/Day Years [...] with others, in a hotel, in a nursing home, living outside on the street, on [...] the past 12 months, has t he [employer], gas, oil or water company threatened to [...] 1:45 PM EST Office Visit [facility] MEDICINE [address] [place] [address] Sofy Cardenas FNP 230 [place] [address] documented as of this encounter Visit Diagnoses Diagnosis Class 3 severe obesity due to excess calories with serious comorbidity and body mass index (BMI) of 50.0 to 59.9 in adult (HCC) documented in this encounter Additional Health Concerns Assessment Noted Time PHQ-9 Depression Total Score: 10 025 9:23 AM EDT documented as of this encounter Care Teams Wet And Dry Sugar Bin Operator Relationship Specialty Start Date End Date Sofy Cardenas FNP [address] [place] [address] PCP - General Family Medicine 11/30/21 Paul Yu FNP [address] [place] [address] Nurse Practitioner Family Medicine 02/26/23 documented as of this encounter
--- OUTSIDE RECORDS SUMMARY | 2025-02-14 08:32 | XMS_ITS | Encounter Summary ---
Author Organization [facility] Address [address] [place], [place] [address] Phone Care Team Providers Care Replacer Name Role Phone Ari Latham MD Primary Care Provider Joseph cortes Encounter Details Date Type Department Care Team (Late st Contact Info) Description 06/15/2011 Documentation [facility] Family Medicine [address] [place], [place] [phone] Family Medicine, Physician [facility] [place] [address] Social History Tobacco Use Types Packs/Day Years [...] on filedocumented in this encounter Care Teams Replacer Relationship Specialty Start Date End Date Ari Latham MD PCP - General 11/15/16 07/07/22 documented as of this encounter
--- OUTSIDE RECORDS SUMMARY | 2025-02-14 08:32 | XMS_ITS | Encounter Summary ---
Author Organization [employer] Address [address] [place] [address] 7 [place] [address] Care Team Providers Care Deputy Director Of Nursing Name Role Phone Sofy Cardenas ACCOUNTING MACHINE OPERATOR Primary Care Provider [phone] Paul Yu ACCOUNTING MACHINE OPERATOR Unavailable Unavailable Encounter Details Date Type Department Care Team (Latest Contact Info) Description 02/13/2025 Travel Social History Tobacco Use Types Packs/Day Years [...] with others, in a hotel, in a care home, living outside on the street, on [...] Description 02/14/2025 1:45 PM EST Office Visit [facility] MEDICINE 230 [place] [address] Sofy Cardenas FNP [address] [place] [address] documented as of this encounter Visit Diagnoses Not on filedocumented in this encounter Additional Health Concerns Assessment Noted Time PHQ-9 Depression Total Score: 10 025 9:23 AM EDT documented as of this encounter Care Teams Deputy Director Of Nursing Relationship Specialty Start Date End Date Sofy Cardenas FNP [address] [place] [address] PCP - General Family Medicine 11/30/21 Paul Yu FNP [address] [place] [address] Nurse Practitioner Family Medicine 02/26/23 documented as of this encounter
--- OUTSIDE RECORDS SUMMARY | 2025-02-14 08:32 | XMS_ITS | Encounter Summary ---
Author Organization [employer] Address [address] [facility] 7t [place] [address] Care Team Providers Care Heel Coverer Machine Operator Name Role Phone Ronald Sofy PLASTIC SHAPER Primary Care Provider [phone] Paul Yu Unavailable Unavailable Encounter Details Date Type Department Care Team (Late st Contact Info) Description 09/16/2023 Orders Only [facility] CH[facility] MED & PEDS [address] [place], [place] [phone] Lanny Lamb FNP [address] [place] [address] Social History Tobacco Use Types Packs/Day Years [...] Visit [facility] MEDICINE [address] [place], [place] [phone] [facility] [address] [place], [place] [phone] documented as of this encounter Procedures Procedure Name Priority Date/Time Associated Diagnosis Comments XR KNEE 1-2 VIEWS LEFT Routine 10/01/2023 2:15 AM EDT documented in this encounter Results * XR Knee 1-2 Views Left (10/01/2023 2:15 AM EDT) Anatomical Region Laterality Modality Lower Extremities, Knee Left [facility] 10/01/2023 2:15 AM EDT Narrative 10/01/2023 3:26 AM EDT [address] [address] XRay Report Signed Patient: Fabiola Varela MR#: [id number] : 1995 Acct:[id number] Age/Sex: 27 / F ADM Date: 10/01/23 Loc: .ED Attending Dr: Ordering Physician: Ernestine Lassiter MD Date of Service: 10/01/23 Procedure(s): XR knee LT 2V Accession Number(s): [id number] cc: Ernestine Lassiter MD; [facility] EXAMINATION: XR KNEE, LEFT CLINICAL INFORMATION: [...] in OV> 10/01/23 0322 DD/ 4 TD/TT: Trombone Slide Assembler: CARRIE Procedure Note Donotuseinterpreter, Image - 10/01/2023 [place] [address] XRay Report Signed Patient: Fabiola VarelaMR#: [id number] : 1995Acct:[id number] Age/Sex: 27 FADM Date: 10/01/23 Loc: .ED Attending Dr: Ordering Physician: Ernestine Lassiter MD Date of Service: 10/01/23 Procedure(s): XR knee LT 2V Accession Number(s): [id number] cc: Ernestine Lassiter MD; [facility] EXAMINATION: XR KNEE, LEFT CLINICAL INFORMATION: [...] in OV> 10/01/23 0322 DD/ 0215 TD/TT: Trombone Slide Assembler: CARRIE [facility] External Provider IMG XR PROCEDURES Edited Result - Final documented in this encounter Visit Diagnoses Not on filedocumented in this encounter Additional Health Concerns Assessment Noted Time PHQ-9 Depression Total Score: 2 07/07/19 24 10:19 AM EDT documented as of this encounter Care Teams Heel Coverer Machine Operator Relationship Specialty Start Date End Date Sofy Cardenas FNP [address] [place] [address] PCP - General Family Medicine 11/30/21 Paul Yu FNP [address] [place] [address] Nurse Practitioner Family Medicine 02/26/23 documented as of this encounter
--- OUTSIDE RECORDS SUMMARY | 2025-02-14 08:32 | XMS_ITS | Encounter Summary ---
Author Organization [employer] [facility] Address [address] [place] [address] 7 [place] [address] Care Team Providers Care Unmanned Aircraft Systems Roboticist Name Role Phone Pauline [facility] Primary Care Provider [phone] Paul Yu WEB DEVELOPMENT MANAGER Unavailable Unavailable Reason for Visit * Reason Onset Date Comments pt1 06/26/2022 PT1 07/09/2022 Encounter Details Date Type Department Care Team ([facility] st Contact Info) Description 06/26/2022 Telephone [facility] [address] [place], [place] [phone] [facility] [address] [place] [address] pt1; PT1 Social History Tobacco Use Types [...] / denial letter via mail. PT-1 Request [id number] Pending. [facility] * Telephone Encounter - Ade Corrales - 07/09/2022 8:51 AM EDT Tc from patient re calling in regards to message below. Patient has a surgery on 07/15/22. * Telephone Encounter - Adam Ramos - 06/26/2022 9:25 AM EDT Tc from pt requesting to renew pt1 Location:[address] [place] [address] Specialty: surgery Time: 6 am Date: July 15 2022 Enamel Machine Operator: yes wheelchair accessible : no Location::[address] [place] [address] Specialty: post op Time: na Date:na Enamel Machine Operator: yes wheelchair accessible :na documented in this encounter Plan of Treatment Upcoming Encounters Date Type Department Care Team (Late st Contact Info) Description 02/14/2025 1:45 PM EST Office Visit [facility] [address] [place] [address] Sofy Cardenas FNP [address] [place] [address] documented as of this encounter Visit Diagnoses Not on filedocumented in this encounter Additional Health Concerns Assessment Noted Time PHQ-9 Depression Total Score: 3 05/23/19 23 11:16 AM EST documented as of this encounter Care Teams Unmanned Aircraft Systems Roboticist Relationship Specialty Start Date End Date Sofy Cardenas FNP [address] [place] [address] PCP - General Family Medicine 11/30/21 Paul Yu FNP [address] [place], [place] [address]Tavo [place] [address] Nurse Practitioner Family Medicine 02/26/23 documented as of this encounter
--- OUTSIDE RECORDS SUMMARY | 2025-02-14 08:32 | XMS_ITS | Encounter Summary ---
Author Organization [facility] Address [address] [place], [place] [phone] Phone Care Team Providers Care Pipe And Tank Fabricator Name Role Phone Ari Latham MD Primary Care Provider Joseph cortes Encounter Details Date Type Department Care Team (Late st Contact Info) Description 03/20/2011 Documentation [facility] Family Medicine [address] [place], [place] [phone] Family Medicine, [place] [address] Social History Tobacco Use Types Packs/Day Years [...] on filedocumented in this encounter Care Teams Pipe And Tank Fabricator Relationship Specialty Start Date End Date Ari Latham MD PCP - General 11/15/16 07/07/22 documented as of this encounter
--- OUTSIDE RECORDS SUMMARY | 2025-02-14 08:32 | XMS_ITS | Encounter Summary ---
Author Organization [facility] Address [address] [place], [place] [phone] Phone Care Team Providers Care Motor Checker Name Role Phone Ari Latham MD Primary Care Provider Joseph cortes Encounter Details Date Type Department Care Team (Late st Contact Info) Description 11/27/2011 Documentation [facility] Family Medicine [address] [place], [place] [phone] Family Medicine, Physician [facility] [place] [address] Social History Tobacco Use Types Packs/Day Years [...] filedocumented in this encounter Care Teams Motor Checker Relationship Specialty Start Date End Date Ari Latham MD PCP - General 11/15/16 07/07/22 documented as of this encounter
--- OUTSIDE RECORDS SUMMARY | 2025-02-14 08:32 | XMS_ITS | Encounter Summary ---
Author Organization [facility] Address [address] [place], [place] [phone] Phone Care Team Providers Care Cash Posting Clerk Name Role Phone Ari Latham MD Primary Care Provider Joseph cortes Encounter Details Date Type Department Care Team (Late st Contact Info) Description 06/11/2012 Documentation [facility] Family Medicine [address] [place], [place] [phone] Family Medicine, Physician [facility] [address] Social History Tobacco Use Types Packs/Day Years [...] on filedocumented in this encounter Care Teams Cash Posting Clerk Relationship Specialty Start Date End Date Ari Latham MD PCP - General 11/15/16 07/07/22 documented as of this encounter
--- OUTSIDE RECORDS SUMMARY | 2025-02-14 08:32 | XMS_ITS | Encounter Summary ---
Author Organization [facility] Address [address] [place], [place] [phone] Phone Care Team Providers Care Biscuit Factory Worker Name Role Phone Ari Latham MD Primary Care Provider Joseph cortes Encounter Details Date Type Department Care Team (Late st Contact Info) Description 04/24/2012 Documentation [facility] Family Medicine [address] [place], [place] [phone] Family Medicine, Physician [facility] [place] [address] Social History Tobacco Use Types Packs/Day Years [...] on filedocumented in this encounter Care Teams Biscuit Factory Worker Relationship Specialty Start Date End Date Ari Latham MD PCP - General 11/15/16 07/07/22 documented as of this encounter
--- OUTSIDE RECORDS SUMMARY | 2025-02-14 08:32 | XMS_ITS | Encounter Summary ---
Author Organization [facility] Address [address] [place], [place] [phone] Phone Care Team Providers Care Line Driver Name Role Phone Ari Latham MD Primary Care Provider Joseph cortes Encounter Details Date Type Department Care Team (Late st Contact Info) Description 05/22/2010 Documentation [facility] Family Medicine [address] [place], [place] [phone] Family Medicine, Physician [facility] [place] [address] Social History Tobacco Use Types Packs/Day Years [...] on filedocumented in this encounter Care Teams Line Driver Relationship Specialty Start Date End Date Ari Latham MD PCP - General 11/15/16 07/07/22 documented as of this encounter
--- OUTSIDE RECORDS SUMMARY | 2025-02-14 08:32 | XMS_ITS | Clinical Summary ---
Author Organization [facility] Address [address] [place] [address] Phone Care Team Providers Care Legal Support Assistant Name Role Phone Unavailable Primary Care [...] complete this topic Procedures * Due to [place] state law, this organization might not be sharing sensitive test results. Procedure Name Priority Date/Time Associated Diagnosis Comments CHLAMYDIA AND GONORRHEA, AMPLIFIED Routine 10/06/2014 2:30 PM EDT from Last 3 Months or Most Recently Relevant to Health Maintenance Results * Due to [place] state law, this organization might not be sharing sensitive test results. * Chlamydia and Gonorrhoea, Amplified (10/06/2014 2:30 PM EDT) URINE CHLAMYDIA AMP PROBE NEGATIVE [facility] Comment: No Chlamydia Trachomatis RNA detected in this patient's sample (REFERENCE RANGE/NORMAL VALUE: NOT DETECTED) URINE GC AMP PROBE [facility]GATIVE [facility] Comment: No Neisseria Gonorrhoeae RNA detected in this patient's sample (REFERENCE RANGE/NORMAL VALUE: NOT DETECTED) NOTE: This test uses incident commander-mediated amplification method to detect rRNA from C.Trachomatis [...] without risk of sexual abuse. Consult the [facility] if needed. Contact phone number . Therapeutic failure or success cannot be determined with the Aptima Combo2 assay since nucleic acid may persist following appropriate antimicrobial therapy. The Centers for Disease Control and Prevention (CDC) recommends confirmatory retesting using culture or a different nucleic acid amplification test when positive results occur, if indicated. Testing performed or reported by [facility], a Service of [facility], [address] [place] [address] Sean Castro MD, PhD, Manager Fire 10/06/2014 2:30 PM EDT Narrative [facility] - 10/06/2014 2:30 PM EDT URINE CHLAMYDIA GC AMP PROBE us Bhumi Riojas NP LAB MICROBIOLOGY - GENERAL OR DERABLES Final Result [facility] [address] [place] [address], from Last 3 Months or Most Recently Relevant to Health Maintenance
--- OUTSIDE RECORDS SUMMARY | 2025-02-14 08:32 | XMS_ITS | Encounter Summary ---
Author Organization [facility] Address [address] [place], [place] [phone] Phone Care Team Providers Care Commission Agent Livestock Name Role Phone Ari Latham MD Primary Care Provider Joseph cortes Encounter Details Date Type Department Care Team (Late st Contact Info) Description 03/09/2010 Documentation [facility] Family Medicine [address] [place], [place] [phone] Family Medicine, Physician Counts include 234 beds at the [facility] [place] [address] Social History Tobacco Use Types Packs/Day Years [...] on filedocumented in this encounter Care Teams Commission Agent Livestock Relationship Specialty Start Date End Date Ari Latham MD PCP - General 11/15/16 07/07/22 documented as of this encounter
--- OUTSIDE RECORDS SUMMARY | 2025-02-14 08:32 | XMS_ITS | Encounter Summary ---
Author Organization [facility] Address [address] [place], [place] [address] Phone Care Team Providers Care Bread Pan Greaser Name Role Phone Ari Latham MD Primary Care Provider Joseph cortes Encounter Details Date Type Department Care Team (Late st Contact Info) Description 09/11/2010 Documentation [facility] [address] [place], [place] [phone] Family Medicine, Physician [facility] [place] [address] Social History Tobacco Use Types Packs/Day Years [...] on filedocumented in this encounter Care Teams Bread Pan Greaser Relationship Specialty Start Date End Date Ari Latham MD PCP - General 11/15/16 07/07/22 documented as of this encounter
--- OUTSIDE RECORDS SUMMARY | 2025-02-14 08:33 | XMS_ITS | Encounter Summary ---
Author Organization [facility] Address [address] [place] [address] Care Team Providers Care Mft Name Role Phone [facility] Primary Care Provider [phone] Reason for Visit * Reason Onset Date Comments schedule an appt 08/29/2021 Encounter Details Date Type Department Care Team (Late st Contact Info) Description 08/29/2021 Telephone [facility] Central Scheduling Department [address] [place] [address] Telephone Intake, Staff schedule an appt Social [...] for Fabiola There is a rfrl in [facility] No dates are avaible for in person or TH Pleas give PT a call back at [phone] Fabiola is hearing impaired she uses a [...] AM EDT Follow-Up [facility] [address] [place] [address] Jered Yang MD [address] [facility] [place] [address] documented as of this encounter Visit Diagnoses Not on filedocumented in this encounter Care Teams Mft Relationship Specialty Start Date End Date [facility] [address] [place] [address] PCP - General 08/12/22 documented as of this encounter
--- OUTSIDE RECORDS SUMMARY | 2025-02-14 08:33 | XMS_ITS | Encounter Summary ---
Author Organization [employer] Address [address] [place] [address] 7 [place] [address] Care Team Providers Care Laborer Sawmill Name Role Phone [facility] Primary Care Provider [phone] Paul Yu Unavailable Unavailable Reason for Visit * Reason Onset Date Comments triage 07/05/2022 Encounter Details Date Type Department Care Team ([facility] st Contact Info) Description 07/05/[address] [facility] MEDICINE [address] [place], [place] [phone] [facility] [address] [place] [address] triage Social History Tobacco Use Types Packs/Day [...] at time of call. Advised to call [facility] after ED eval for follow up [...] 02/14/2025 1:45 PM EST Office Visit [facility] MEDICINE [address] [place] [address] Sofy Cardenas FNP [address] [place] [address] documented as of this encounter Visit Diagnoses Not on filedocumented in this encounter Additional Health Concerns Assessment Noted Time PHQ-9 Depression Total Score: 5 07/05/19 23 9:22 AM EDT documented as of this encounter Care Teams Laborer Sawmill Relationship Specialty Start Date End Date Sofy Cardenas FNP [address] [place] [address] PCP - General Family Medicine 11/30/21 Paul Yu FNP [address] [place] [address] Nurse Practitioner Family Medicine 02/26/23 documented as of this encounter
--- OUTSIDE RECORDS SUMMARY | 2025-02-14 08:33 | XMS_ITS | Encounter Summary ---
Author Organization [facility] Address [address] [place] [address] Phone Care Team Providers Care City Planning Teacher Name Role Phone Ari Latham MD Primary Care Provider Joseph cortes Encounter Details Date Type Department Care Team (Late st Contact Info) Description 11/21/2016 Conversion Encounter [facility] - [address] [address] Social History Tobacco Use Types Packs/Day Years [...] on filedocumented in this encounter Care Teams City Planning Teacher Relationship Specialty Start Date End Date Ari Latham MD PCP - General 11/15/16 07/07/22 documented as of this encounter
--- OUTSIDE RECORDS SUMMARY | 2025-02-14 08:33 | XMS_ITS | Encounter Summary ---
Author Organization [facility] Address [address] [facility] [address] [place] [address] Phone Care Team Providers Care Research Fellow Name Role Phone Sofy Cardenas Primary Care Provider [phone] Encounter Details Date Type Department Care Team (Late st Contact Info) Description 07/15/2022 Procedure Pass [facility] MAIN PERIOP DEPT [address] [place] [address] Social History Tobacco Use Types Packs/Day Years [...] on filedocumented in this encounter Care Teams Research Fellow Relationship Specialty Start Date End Date Sofy Cardenas FNP [address] [place] [address] PCP - General 12/26/21 documented as of this encounter Additional Source Comments The information contained in this document represents components of the legal health record. It is not the complete legal health record.[facility]
--- OUTSIDE RECORDS SUMMARY | 2025-02-14 08:33 | XMS_ITS | Encounter Summary ---
Author Organization [employer] Address [address] [place] [address] Care Team Providers Care International Representative Name Role Phone [facility] Primary Care Provider [phone] Paul Yu Unavailable Unavailable Reason for Visit * Reason Onset Date Comments Appointment Request 11/08/2022 Encounter Details Date Type Department Care Team ([facility] st Contact Info) Description 11/08/2022 Telephone [facility] MEDICINE [address] [place] [address] [facility] [address] [place] [address] Appointment Request Social History Tobacco Use Types [...] and understood,. Advised to give call to [facility] if any questions or concerns. * Telephone Encounter - Ade Antoni - 11/08/2022 1:58 PM EDT Tc from patient requesting a f/u appt, due to getting her gall bladder removed on 11/07/22 at [facility]. documented in this encounter Plan of Treatment Upcoming Encounters Date Type Department Care Team (Late st Contact Info) Description 02/14/2025 1:45 PM EST Office Visit [facility] MEDICINE [address] [place] [address] Sofy Cardenas FNP [address] [place] [address] documented as of this encounter Visit Diagnoses Not on filedocumented in this encounter Additional Health Concerns Assessment Noted Time PHQ-9 Depression Total Score: 3 09/27/19 23 9:18 AM EDT documented as of this encounter Care Teams International Representative Relationship Specialty Start Date End Date Sofy Cardenas FNP [address] [place] [address] PCP - General Family Medicine 11/30/21 Paul Yu FNP [address] [place] [address] Nurse Practitioner Family Medicine 02/26/23 documented as of this encounter
--- OUTSIDE RECORDS SUMMARY | 2025-02-14 08:33 | XMS_ITS | Encounter Summary ---
Author Organization [facility] Address [address] [place] [address] Phone Care Team Providers Care Office Machine Servicer Name Role Phone Rosi Altamirano NP Primary Care Provider [facility] Sofy Cardenas Primary Care Provider Encounter Details Date Type Department Care Team (Late st Contact Info) Description 07/16/2021 Procedure Pass [facility] Endoscopy Admitting Dept Virtual Department [address] [place] [address] Social History Tobacco Use Types Packs/Day Years [...] on filedocumented in this encounter Care Teams Office Machine Servicer Relationship Specialty Start Date End Date Rosi Altamirano NP PCP - General 01/04/21 12/25/21 Sofy Cardenas FNP [address] [place] [address] PCP - General 12/26/21 documented as of this encounter Additional Source Comments The information contained in this document represents components of the legal health record. It is not the complete legal health record.[facility]
--- OUTSIDE RECORDS SUMMARY | 2025-02-14 08:33 | XMS_ITS | Clinical Summary ---
Author Organization [employer] Address [address] [place] [address] 7 [place] [address] Care Team Providers Care Boiler Repairman Name Role Phone Sofy Cardenas TIRE BUILDING SUPERVISOR Primary Care Provider [phone] Paul Yu TIRE BUILDING SUPERVISOR Unavailable Unavailable Allergies Active Allergy Reactions Criticality [...] from that organization. gabapentin (Neurontin) 600 MG tabletIndications :Arnold-Chiari malformation, type I (CMS/HCC) (HCC) TAKE 1 TABLET BY MOUTH THREE TIMES DAILY 90 tablet 2 023 Active cetirizine (ZyrTEC) 10 MG tabletIndications :Seasonal allergies take 1 tablet by oral route every day as needed for allergy symptoms 30 tablet 3 023 Active ibuprofen 800 MG tablet Take 1 tablet by mouth every 8 (eight) hours if needed. 023 Active SUMAtriptan (Imitrex) 50 MG tabletIndications :Migraine without status migrainosus, not intractable, unspecified migraine type TAKE 1 TABLET BY MOUTH AT ONSET OF MIGRAINE. MAY REPEAT ONCE AFTER 2 HOURS IF NEEDED DO NOT EXCEED 4 TABLETS DAILY 9 tablet 1 023 Active tiZANidine (Zanaflex) 4 MG tabletIndications :Acute pain of right knee,Muscle spasm of left lower extremity Take 1 tablet (4 mg) by mouth if needed in the morning and at bedtime for muscle spasms for up to 10 days. 20 tablet 024 Active atomoxetine (Strattera) 25 MG capsuleIndication s:Attention deficit hyperactivity disorder (ADHD), predominantly inattentive type Take 1 capsule (25 mg) by mouth 2 times daily. Swallow capsule whole; do not open. If opened accidentally, do not touch eyes; wash hands immediately (product is an eye irritant). 180 capsule 3 024 Active DULoxetine (Cymbalta) [address] capsule Take 1 capsule (20 mg) by mouth Once per day. Do not crush or chew. 90 capsule 3 024 Active lurasidone (Latuda) 60 MG tablet Take 1 tablet (60 mg) by mouth Once daily. Take with a meal 90 tablet 3 024 Active EPINEPHrine (Adrenalin) 0.3 MG/0.3ML injection Inject 1 Applicator as directed as needed (allergic reaction). 2 each 1 024 Active topiramate (Topamax) 25 MG tablet Take 1 tablet by mouth 2 times daily. 023 Active ondansetron ODT (Zofran-ODT) 8 MG disintegrating tabletIndications :Nausea Take 1 tablet (8 mg) by mouth every 8 (eight) hours if needed for nausea. 20 tablet 024 Active triamcinolone (Kenalog) 0.1 % creamIndications: Irritant contact dermatitis due to other agents Apply topically if needed in the morning and at bedtime (pain and swelling). 30 g 025 Active phentermine 15 MG capsuleIndication s:Class 3 severe obesity due to excess calories with serious comorbidity and body mass index (BMI) of 50.0 to 59.9 in adult ([facility]) Take 1 capsule (15 mg) by mouth before breakfast. 30 capsule 025 Active gatifloxacin (Zymar) 0.5 % solution ophthalmic solutionIndicatio ns:Acute conjunctivitis of right eye, unspecified acute conjunctivitis type Administer 1 drop into the right eye 4 times daily. 2.5 mL 025 Active Zepbound 2.5 MG/0.5ML solution auto-injectorIndi cations:Class 3 severe obesity due to excess calories with serious comorbidity and body mass index (BMI) of 50.0 to 59.9 in adult ([facility]) INJECT ONE PEN (=2.5MG) SUBCUTANEOUSLY ONCE A WEEK DIRECTED 2 mL 1 025 Active Tirzepatide-Weigh t Management (Zepbound) 2.5 MG/0.5ML solution auto-injectorIndi cations:Class 3 severe obesity due to excess calories with serious comorbidity and body mass index (BMI) of 50.0 to 59.9 in adult ([facility]) Inject 0.5 mL (2.5 mg) under the skin 1 (one) time per week. 2 mL 1 025 2024 Discontinued fluconazole (Diflucan) 150 MG tabletIndications :Vaginal discharge Take 1 tablet (150 mg) by mouth 1 (one) time for 1 dose. 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 Rodrigez Indication: recurrent biliary [...] so patient will be referred to new [facility] Psychiatric prescriber. She is aware that appts will be via televisit and that provider will not be an [facility] employee. She gives permission to share [...] then she will be referred to new [facility] Psychiatric prescriber. Continue with therapist. She [...] Will start with new therapist at [facility]. F/U 2-3 months. She agrees with the [...] will continue with her therapist at [facility]. F/U 6 weeks. She agrees with the [...] will continue with her therapist at [facility] but does not want to consider transferring [...] will continue with her therapist at [facility] but does not want to consider transferring [...] will continue with her therapist at [facility] but does not want to consider transferring [...] answered. Miscarried on 12/28/21 Was seen at [facility]. [place] report in media This is her [...] answered. Miscarried on 12/28/21 Was seen at [facility]. US report in media This is her [...] Major depressive disorder 01/04/2021 Overview (04/18/2022): [facility] Anxiety 01/04/2021 08/15/2022 Seizure ([facility]) 09/10/2020 08/15/2022 Urinary incontinence 07/31/2020 023 Pain in both hands 07/31/2020 Arthralgia of right ankle 07/31/2020 Posttraumatic stress disorder 01/05/2015 08/15/2022 Morbid obesity (CMS/HCC) 12/21/201302/2023 Overview (04/18/2022): Obesity in (BMI >30) BMI at Intake Date Obesity plan of care discussed BMI > 50 (at 36 weeks or before) transfer to tertiary care (send TE to Dian Melani) * If BMI 40 or greater discuss [...] transfer to tertiary care (send TE to Dianakhil Polo) * If BMI 40 or greater [...] Encounters Date Type Department Care Team Description 02/13/2025 Travel 02/09/2025 Refill [facility] [address] [place] [phone] Sofy Cardenas FNP Class 3 severe obesity due to excess calories with serious comorbidity and body mass index (BMI) of 50.0 to 59.9 in adult (HCC) 02/07/2025 Patient Outreach [facility] [address] [place] [address] [phone] Sofy Cardenas FNP Pre-visit Planning ([facility] screening was completed on 06/28/2024) 02/07/2025 Results Follow-Up [facility] [address] [place] [address] [phone] Yudelka Gottlieb MD POCT Urinalysis, Chlamydia/N. Gonorrhoeae RNA, TMA, Vaginal, Culture, Urine, Routine 02/03/2025 Telephone [facility] [address] [place] [address] [phone] Sofy Cardenas FNP Results 02/02/2025 5:40 PM EDT Office Visit [facility] [address] [place] [address] [phone] Yudelka Gottlieb MD Dysuria (Primary Dx) 01/13/2025 Telephone [facility] [address] [place] [phone] Sofy Cardenas FNP Med Refill 12/30/[address] [phone] Sofy Cardenas FNP Nurse Triage 12/14/[address] [phone] Sofy Cardenas FNP Class 3 severe obesity due to excess calories with serious comorbidity and body mass index (BMI) of 50.0 to 59.9 in adult 12/13/2024 Patient Outreach [address] [phone] Sofy Cardenas FNP Care Coordination (C3CM/CHW Odilon Garrett, Sdoh f/u call, closed ) 12/01/2024 5:40 PM EDT Office Visit [facility] [address] [place] [phone] Laya Herring MD Acute conjunctivitis of right eye, unspecified acute conjunctivitis type (Primary Dx) 12/01/2024 Travel 11/22/2024 Patient Outreach [address] [address] Sofy Cardenas FNP Care Coordination (C3CM/CHW Odilon Garrett, TC #2 SDOH f/u call_lvm) 11/15/[address] [address] Sofy Cardenas FNP Prior Authorization ( PA: [...] with others, in a hotel, in a prison, living outside on the street, on a [...] Description 02/14/2025 1:45 PM EST Office Visit [facility] [address] [place] [address] [place], Sofy, TIRE BUILDING SUPERVISOR [address] [facility] [place] [address] Health Maintenance Due Date Last Done Comments [...] Procedure Name Priority Date/Time Associated Diagnosis Comments BACTERIAL VAGINOSIS PANEL Routine 02/08/2025 12:00 AM EST Vaginal discharge POCT URINALYSIS DIPSTICK Routine 02/02/2025 5:44 PM EDT Dysuria CULTURE, URINE, ROUTINE Routine 02/02/2025 5:44 PM EDT Dysuria CHLAMYDIA/N. GONORRHOEAE RNA, TMA, UROGENITAL Routine 02/02/2025 5:44 PM EDT Dysuria LIPID PANEL, STANDARD Routine 06/25/2024 9:27 AM EDT Class 3 severe obesity due to excess calories with serious comorbidity and body mass index (BMI) of 50.0 to 59.9 in adult ([facility]) HIV 1/2 ANTIGEN/ANTIBODY, FOURTH GENERATION W/RFL Routine 04/18/2023 12:05 PM EST Hemoptysis PAP SMEAR Routine 02/19/2023 10:40 AM EST HEPATITIS C ANTIBODY Routine 06/28/2022 2:05 PM EDT Acute carpal tunnel syndrome, unspecified laterality from Last 3 Months or Most Recently Relevant to Health Maintenance Results * Bacterial Vaginosis Panel (02/08/2025 12:00 AM EST) TRICHOMONAS VAGINALIS DETECTION BY PCR NOT DETECTED Not Detect [facility] BACTERIAL VAGINOSIS DETECTION BY PCR NEGATIVE Negative [facility] Comment:The BV organism targ ets of the Xpert Xpress MVP test can becommensal in women; Xpert Xpress MVP positive results forbacterial vaginosis should be considered in conjunction withother clinical and patient information to determine thedisease status. Organisms that are not detected by the XpertXpress MVP test have also been reported to be associatedwith BV and aerobic vaginitis.The Xpert Xpress MVP test performance has not been evaluatedin patients under the age of 14. TINY GROUP DETECTION BY PCR NOT DETECTED Not Detect [facility] Tiny glab krusei PCR NOT DETECTED Not Detect [facility] Swab Vaginal structure / Unknown 02/08/2025 02/08/2025 us Yudelka Gottlieb MD LAB MICROBIOLOGY - GENERAL ORD ERABLES Final Result [facility] [address] [place] [phone] * Chlamydia/N. Gonorrhoeae RNA, TMA, Vaginal (02/02/2025 5:44 PM EDT) CT PCR NOT DETECTED Not Detect. [facility] Comment:A not detected test result [...] psychologicalconsequences. NG PCR NOT DETECTED Not Detect. [facility] Comment:A not detected test result [...] 5:44 PM EDT 02/03/2025 12:03 PM EDT us Yudelka Gottlieb MD LAB MICROBIOLOGY - GENERAL ORD ERABLES Final Result [facility] [address] [place] [address] [phone] * (ABNORMAL) POCT Urinalysis (02/02/2025 5:44 PM [...] Urine (Urine, Random) 02/02/2025 5:44 PM EDT us Yudelka Gottlieb MD POINT OF CARE TEST ENTER/EDIT ORDERABLES Final Result * Culture, Urine, Routine (02/02/2025 5:44 PM EDT) Urine Urine specimen obtained by clean catch procedure / Unknown 02/02/2025 5:44 PM EDT 02/03/2025 12:03 PM EDT Comment:UACC Narrative [facility] - 02/04/2025 12:15 PM EDT Urine Culture Report Result Urine Culture 10,000 to 50,000 cfu/ml Urine Culture Mixed bacterial wong characteristic of Urine Culture urogenital contamination. Specimen Source: Urine clean catch Yudelka Gottlieb MD LAB MICROBIOLOGY - GENERAL ORD ERABLES Final Result Performing Organization Address [facility]/ZIP Co de Phone Number [facility] [address] [place] [phone] * (ABNORMAL) Lipid Panel, Standard (06/25/2024 9:27 AM EDT) Triglycerides 58 <150 mg/dL [facility] Comment:Desirable Triglyceri de: less than 150 mg/dLBorderline High Triglyceride 150-199 mg/dLHigh Triglyceride: 200-499 mg/dLVery High Triglyceride: greater than or equal to 5OO mg/dL Cholesterol 110 <200 mg/dL [facility] Comment:Desirable Cholestero l: less than 200 mg/dLBorderline High Cholesterol: 200-239 mg/dLHigh Cholesterol: greater than 239 mg/dL LDL Cholesterol Calculated 62 <100 mg/dL [facility] Comment:Desirable LDL: less than 100 mg/dLNear Optimal/Above Optimal LDL: 110- 129 mg/dLBorderline High LDL: 130-159 mg/dLHigh LDL: 160-189 mg/dLVery High LDL: greater than or equal to 190 mg/dL HDL Cholesterol 37(L) >40 mg/dL [facility] Comment:Desirable HDL: great er than 40 mg/dL Note: This HDL assay may give artificially low results in patients with liver disease. Blood Venous blood specimen / Unknown 06/25/2024 9:27 AM EDT 06/25/2024 11:07 AM EDT [facility] TIRE BUILDING SUPERVISOR LAB BLOOD ORDERABLES Final Re sult Performing Organization Address [facility]/ZIP Co de Phone Number [facility] [address] [place] [phone] * HIV-1/2 Antigen and Antibodies, Fourth Generation, with Reflexes (04/18/2023 12:05 PM EST) HIV AB/AG Nonreactive Nonreactive [facility] Comment:HIV-1 p24 Ag and/or HIV-1/HIV-2 Ab not detected.A test result that is nonreactive does not exclude thepossibility of exposure to or infection with HIV-1 and/orHIV-2. Nonreactive results in this assay for individualswith prior exposure to HIV-1 and/or HIV-2 may be due toantigen and antibody levels that are below the limit ofdetection of this assay.The [email or web address] HIV Ag/Ab Combo assay result andsupplemental assay results should be interpreted inconjunction with the patient's clinical presentation,history and other laboratory results. If the results areinconsistent with clinical evidence, additional testing issuggested to confirm the result. Blood Venous blood specimen / Unknown 04/18/2023 12:05 PM EST 04/18/2023 1:04 PM EST us Laya Bundy MD LAB BLOOD ORDERABLES Final Result [facility] [address] [place] [phone] * Pap Smear (02/19/2023 10:40 AM EST) 02/19/2023 10:4 0 AM EST 02/20/2023 10:45 AM EST Narrative [facility] - 03/11/2023 7:55 AM EST ----- ------- Name: AveryFabiola Age/Sex: 27/F : 1995 Unit#: [id number] Attend Dr: Sofy CardenasP Re02/19/23 Status: DEP REF Location: [facility] Disch: ----- ------- SPEC : [id number] RECD: 02/20/23 STATUS: LUZ MARINA DELAROSA NUM: [id number] SERGO: 02/19/[address]: Sofy Cardenas [facility] ENTERED: 02/21/23 SP TYPE: Pap Smr OTHR DR: ORDERED: Pap Smear Interpretation Satisfactory for evaluation. No endocervical cells seen. Blood. Mild inflammation. Negative for intraepithelial lesion or malignancy. Clinical Information LMP: Unknown date Previous PAP test: Unknown date/findings Material Received ThinPrep-Cervical ----- ------- Signed (signature on file) J CARLOS Pena ([facility]) 03/11/23 0755 ----- ------- END OF REPORT us Sofy [place] TIRE BUILDING SUPERVISOR LAB CYTOLOGY ORDERABLES Final Result Performing Organization Address City/[facility]/ZIP Co de Phone Number [facility] [address] [place] [phone] [phone] * Hepatitis C Ab (06/28/2022 2:05 PM EDT) Hepatitis C Antibody Nonreactive Nonreactive [facility] Comment:Antibodies to HCV no t detected; does not exclude early acuteHCV infection. 06/28/2022 2:05 PM EDT 06/28/2022 2:05 PM EDT [facility] External Provider LAB BLO OD ORDERABLES Final Result Performing Organization Address [facility] Co de Phone Number [facility] [address] [place] [address] [phone] from Last 3 Months or Most Recently Relevant to Health Maintenance Insurance [employer] [facility] C3 Care Teams Boiler Repairman Relationship Specialty Start Date End Date Sofy Cardenas FNP [address] [place] [address] PCP - General Family Medicine 11/30/21 Paul Yu FNP [address] [place], [place] Nurse Practitioner Family Medicine 02/26/23
--- OUTSIDE RECORDS SUMMARY | 2025-02-14 08:33 | XMS_ITS | Clinical Summary ---
Author Organization [facility] Address [address] [place] [address] Care Team Providers Care Commercial Field Inspector Name Role Phone Unavailable Primary Care Provider [...] mouth twice a day 03/13/20 23 Active atomoxetine (STRATTERA) 25 mg capsuleIndication s:Attention deficit hyperactivity disorder (ADHD), unspecified ADHD type Take 1 Capsule by mouth twice a day. 60 Capsule 2 10/29/19 25 Active melatonin 3 mg tablet Take 1 Tablet by mouth nightly at bedtime as needed for sleep for up to 30 days. 30 Tablet 2 02/04/20 25 025 Active lurasidone 60 mg tabIndications:Ep isodic mood disorder Take 1 Tablet by mouth daily for 30 days. 30 Tablet 2 02/04/20 25 025 Active DULoxetine (CYMBALTA) 40 mg cpDRIndications:A nxiety Take 1 Capsule by mouth daily for 30 days. 30 Capsule 3 02/04/20 25 025 Active melatonin 3 mg tablet Take 1 Tablet by mouth nightly at bedtime as needed for sleep for up to 30 days. 30 Tablet 2 10/29/19 25 025 Discontin ued(Reord er (E-Cancel Not Sent)) DULoxetine 40 mg cpDRIndications:A nxiety Take 1 Capsule by mouth daily for 30 days. 30 Capsule 3 10/29/19 25 025 Discontin ued(Reord er (E-Cancel Not Sent)) lurasidone 60 mg tabIndications:Ep isodic mood disorder Take 1 Tablet by mouth daily for 30 days. 30 Tablet 2 10/29/19 25 025 Discontin ued(Reord er (E-Cancel Not Sent)) [...] PCP History of cholecystectomy 11/24/2022 Overview (11/27/2023): Lap Cholecystectomy 11/07/22 at [facility] performed by Dr. Rodrigez Indication: recurrent biliary colic Last Assessment & [...] FU in 1 week. Episodic mood disorder 05/09/2022 Overview (03/11/2024): Patient has been doing [...] She will continue with her therapist at [facility]. F/U 6 weeks. She agrees with the plan. Assessment & Plan (02/03/2025 2:44 PM EDT): A: reports a stable mood , denies sammi and depressive symptoms, she is in a residential, denies mood irritability and anxiety. P: Continue Latuda Assessment & Plan (10/28/2024 1:29 PM EDT): A: reports a stable mood , denies sammi and depressive symptoms. P: Continue Latuda Assessment & Plan (09/02/2024 7:00 PM EDT): A: reports a stable mood , denies sammi and depressive symptoms. P: Continue Latuda Assessment & Plan (06/09/2024 1:10 PM EST): [...] of PG Complex renal cyst 09/22/2020 Seizure 09/10/2020 Migraine without aura 07/31/2020 Arnold-Chiari malformation, type I 01/10/2015 Overview (11/27/2023): MRI 2008 MRI 2008 MRI 2007 MRI 2008 Focal nodular hyperplasia of liver 01/10/2015 Overview (11/27/2023): Wedge resection of liver 05/2012 Wedge resection of liver 05/2012 Wedge resection of liver 05/2012 Wedge resection of liver 05/2012 Posttraumatic stress disorder 01/05/2015 Assessment & Plan (02/03/2025 2:43 PM EDT): No active complains or symptoms, continue to monitor Assessment & Plan (10/28/2024 1:28 PM EDT): No active complains or symptoms, continue to monitor Assessment & Plan (09/02/2024 7:00 PM EDT): No active complains or symptoms, continue to monitor Assessment & Plan (06/09/2024 1:10 PM EST): No active complains or symptoms, continue to monitor Assessment & Plan (03/11/2024 6:12 PM EST): No active complains or symptoms, continue to monitor Assessment & Plan (11/27/2023 12:36 PM EDT): No active complains or symptoms, continue to monitor Seasonal allergies 01/05/2015 Morbid obesity 12/21/2013 Attention deficit hyperactivity disorder (ADHD) 06/15/2011 Overview (11/27/2023): Last Assessment & Plan: Continue Strattera 25 mg BID. Assessment & Plan (10/28/2024 1:29 PM EDT): A: Symptoms under control. P: continue Strattera 25 mg PO BID, effective with concentration issues Assessment & Plan (09/02/2024 7:01 PM EDT): A: Symptoms under control. P: continue Strattera 25 mg PO BID, effective with concentration issues Assessment & Plan (06/09/2024 1:10 PM EST): [...] Encounters Date Type Department Care Team Description 02/03/2025 2:30 PM EDT Behavioral Health Visit [facility] [address] [place] [phone] Chanell Farrell APRN from Last 3 Months Family History Medical [...] Upcoming Encounters Date Type Department Care Team ([facility] Contact Info) Description 03/08/2025 12:30 PM EST Behavioral Health Visit [facility] [address] [place] [phone] Chanell Farrell APRN [address] [facility] [place] [address] Health Maintenance Due Date Last Done Comments Anxiety Screening 1995 HPV Screening (self-collect) 1995 HPV Screening 1995 Hepatitis C Screening 1995 Pap + HPV 1995 Tobacco Screening 1995 Relationship Safety Screening/Counseling 2008 Hypertension Screening (#1) 12/07/2011 Alcohol and Drug Screen 04/07/2024 Depression Annual Screen 04/07/2024 [id number] ( season) 2024 11/19/2022, 11/21/2021, 08/17/2020, Additional history exists Imm-Influenza (#1) 2024 03/07/2014, 1 05/09/2012, 01/24/2012, Additional history exists Diabetes Screening 06/25/2025 06/25/2024, 1 05/20/2023, 06/28/2022, Additional history exists Lipid Screening 06/25/2025 06/25/2024 Cervical Cancer Screening 02/19/2026 Pap Smear 02/19/2026 02/19/2023 Imm-DTaP/Tdap/Td (9 - Td or Tdap) 11/14/2027 11/13/2017, 02/20/2012, 01/23/2006, Additional history exists Imm-Hepatitis B Completed 10/04/1994, 02/07, 01/04/1994 Imm-HPV Completed 08/06/2007, 03/07, 01/23/2007 HIV Screening Completed 04/18/2023, 04/07, 06/28/2022, Additional history exists Cervical Ablation/Cold-Knife Conization Discontinued Cervical Cryotherapy Discontinued Colposcopy Discontinued Excision/Leep Discontinued HPV Genotyping Discontinued Vaginal Pap Discontinued Vulvoscopy Discontinued [place] [employer]
--- OUTSIDE RECORDS SUMMARY | 2025-02-14 08:33 | XMS_ITS | Encounter Summary ---
Author Organization [facility] Address [address] [place] [address] 7 [place] [address] Care Team Providers Care Production Control Analyst Name Role Phone Gardner Sofy [facility] Primary Care Provider [phone] Paul Yu Unavailable Unavailable Reason for Visit * Reason Comments Med Refill Encounter Details Date Type Department Care Team (Late st Contact Info) Description 12/11/2022 Refill [facility] [address] [place], [place] [phone] Yaima Shah FNP [address] [place] [address] Social History Tobacco Use Types Packs/Day Years [...] EST Office Visit [facility] [address] [place] [address] Sofy Cardenas [facility] [address] [place] [address] documented as of this encounter Visit Diagnoses Not on filedocumented in this encounter Additional Health Concerns Assessment Noted Time PHQ-9 Depression Total Score: 3 09/27/19 23 9:18 AM EDT documented as of this encounter Care Teams Production Control Analyst Relationship Specialty Start Date End Date Sofy Cardenas FNP [address] [place] [address] PCP - General Family Medicine 11/30/21 Paul Yu FNP [address] [place] [address] Nurse Practitioner Family Medicine 02/26/23 documented as of this encounter
--- OUTSIDE RECORDS SUMMARY | 2025-02-14 08:33 | XMS_ITS | Encounter Summary ---
Author Organization [facility] Address [address] [place] [address] Phone Care Team Providers Care Gauge And Instrument Inspector Name Role Phone Rosi Altamirano BAG BAILER Primary Care Provider chung [place] tadeo Adama MERCHANT BANKER Primary Care Provider [phone] Reason for Referral * MRI/CAT Scan - Closed Specialty Diagnoses / Procedures Referred By Neri murdock Referred To Contact Radiology Diagnoses Liver hemangioma Procedures MRI Abdomen Sera Treviño PA-C Phone: tel: fax: [email or web address] Referral ID Status Reason Start Date Expiration Date Visits Re quested Visits Authorized [id number] Closed 06/07/2021 06/07/2022 1 1 Encounter Details Date Type Department Care Team (Latest Contact Info) Description 06/07/2021 Transcribe Orders Virtual Department [address] [place] [address] Sera Treviño PA-C [address] [place] [address] [email or web address] Liver hemangioma (Primary Dx) Social History Tobacco [...] hemangioma documented in this encounter Care Teams Gauge And Instrument Inspector Relationship Specialty Start Date End Date Rosi Altamirano NP PCP - General 01/04/21 12/25/21 [place] FNP [address] [place] [address] PCP - General 12/26/21 documented as of this encounter Additional Source Comments The information contained in this document represents components of the legal health record. It is not the complete legal health record.[facility]
--- OUTSIDE RECORDS SUMMARY | 2025-02-14 08:33 | XMS_ITS | Encounter Summary ---
Author Organization [facility] Address [address] [place] [address] Phone Care Team Providers Care Radio Recorder Name Role Phone Rosi Altamirano NP Primary Care Provider U Sofy Roberts Primary Care Provider [phone] Encounter Details Date Type Department Care Team (Late st Contact Info) Description 06/07/2021 Procedure Pass [address] [address] Social History Tobacco Use Types Packs/Day Years [...] filedocumented in this encounter Care Teams Radio Recorder Relationship Specialty Start Date End Date Rosi Altamirano NP PCP - General 01/04/21 12/25/21 Sofy Cardenas FNP [address] [place] [address] PCP - General 12/26/21 documented as of this encounter Additional Source Comments The information contained in this document represents components of the legal health record. It is not the complete legal health record.[facility]
--- OUTSIDE RECORDS SUMMARY | 2025-02-14 08:33 | XMS_ITS | Encounter Summary ---
Author Organization [facility] Address [address] [place] [address] Care Team Providers Care Slip Caster Name Role Phone Ronald Curran Primary Care Provider [phone] Encounter Details Date Type Department Care Team (Late st Contact Info) Description 10/29/2021 [facility] Only [facility] Nuclear Medicine [address] [place] [address] Casey Lomeli MD [address] [place] [address] Social History Tobacco Use Types Packs/Day Years [...] AM EDT Follow-Up [facility]IVER [address] [place] [address] Jered Yang MD 55 [facility] [place] [address] documented as of this encounter Visit Diagnoses Not on filedocumented in this encounter Care Teams Slip Caster Relationship Specialty Start Date End Date Ronald Sofy [address] [place] [address] PCP - General 08/12/22 documented as of this encounter
--- OUTSIDE RECORDS SUMMARY | 2025-02-14 08:33 | XMS_ITS | Encounter Summary ---
Author Organization [employer] Address [address] [place] [address] 7 [place] [address] Care Team Providers Care International Broadcast Music Librarian Name Role Phone Sofy Cardenas GRAIN CLEANER Primary Care Provider Paul Yu GRAIN CLEANER Unavailable Unavailable Encounter Details Date Type Department Care Team ([facility] st Contact Info) Description 10/15/[address] [facility] MEDICINE [address] [place] [address] Laya Herring MD [address] [place] [address] Social History Tobacco Use Types Packs/Day Years [...] with others, in a hotel, in a mcc, living outside on the street, on a [...] 02/14/2025 1:45 PM EST Office Visit [facility] MEDICINE [address] [place] [address] Sofy Cardenas FNP [address] [place] [address] documented as of this encounter Visit Diagnoses Not on filedocumented in this encounter Additional Health Concerns Assessment Noted Time PHQ-9 Depression Total Score: 10 025 9:23 AM EDT documented as of this encounter Care Teams International Broadcast Music Librarian Relationship Specialty Start Date End Date Sofy Cardenas FNP [address] [place] [address] PCP - General Family Medicine 11/30/21 Paul Yu FNP [address] [place] [address] Nurse Practitioner Family Medicine 02/26/23 documented as of this encounter
--- OUTSIDE RECORDS SUMMARY | 2025-02-14 08:33 | XMS_ITS | Encounter Summary ---
Author Organization [facility] Address [address] [facility] [address] [place] [address] Phone Care Team Providers Care Airline Station Agent Name Role Phone Rosi Altamirano NP Primary Care Provider Sofy Roberts [facility] Primary Care Provider [phone] Encounter Details Date Type Department Care Team (Latest Contact Info) Description 06/29/2021 Transcribe Orders [facility] Vestibular Lab [facility] [address] [facility] [address] [address] [address] [place] [address] [email or web address] Problems with hearing (Primary Dx) [...] Primary documented in this encounter Care Teams Airline Station Agent Relationship Specialty Start Date End Date Rosi Altamirano NP PCP - General 01/04/21 12/25/21 [place] FNP [address] [place] [address] PCP - General 12/26/21 documented as of this encounter Additional Source Comments The information contained in this document represents components of the legal health record. It is not the complete legal health record.[facility]
--- OUTSIDE RECORDS SUMMARY | 2025-02-14 08:33 | XMS_ITS | Clinical Summary ---
Author Organization [facility] Address [address] [address] Care Team Providers Care Crate Repairer Name Role Phone Unavailable Primary Care Provider [...]
--- OUTSIDE RECORDS SUMMARY | 2025-02-14 08:33 | XMS_ITS | Encounter Summary ---
Author Organization [facility] Address [address] [place] [address] [place] [address] Phone Care Team Providers Care Certified Teacher Assistant Name Role Phone Rosi Altamirano MEDICAL INSTRUCTOR Primary Care Provider Sofy Roberts STAFF REPORTER Primary Care Provider [phone] Encounter Details Date Type Department Care Team (Late st Contact Info) Description 02/27/2021 Ancillary Orders [facility] 30 [place] [address] Kathy Carlisle PA-C [address] [place] [address] [email or web address] Social History Tobacco Use Types [...] quadrant documented in this encounter Care Teams Certified Teacher Assistant Relationship Specialty Start Date End Date Rosi Altamirano NP PCP - General 01/04/21 12/25/21 Sofy Cardenas FNP [address] [place] [address] PCP - General 12/26/21 documented as of this encounter Additional Source Comments The information contained in this document represents components of the legal health record. It is not the complete legal health record.[facility]
--- OUTSIDE RECORDS SUMMARY | 2025-02-14 08:33 | XMS_ITS | Encounter Summary ---
Author Organization [facility] Address [address] [place] [address] [place] [address] Phone Care Team Providers Care Warp Splitter Name Role Phone Rosi Altamirano FIBER PICKER Primary Care Provider U Sofy Roberts QUENCHING CAR OPERATOR Primary Care Provider [phone] Encounter Details Date Type Department Care Team (Late st Contact Info) Description 02/26/2021 Procedure Pass [facility], Ct Scan - [address] [address] Social History Tobacco Use Types Packs/Day Years [...] 02/26/2021 6:33 PM Sera Lawson, RN * [place] Suicide Severity Rating Scale (Screener/Recent Self-Report) Question [...] on filedocumented in this encounter Care Teams Warp Splitter Relationship Specialty Start Date End Date Rosi Altamirano NP PCP - General 01/04/21 12/25/21 [place] FNP [address] [place] [address] PCP - General 12/26/21 documented as of this encounter Additional Source Comments The information contained in this document represents components of the legal health record. It is not the complete legal health record.[facility]
--- OUTSIDE RECORDS SUMMARY | 2025-02-14 08:33 | XMS_ITS | Clinical Summary ---
Author Organization [facility] Address [address] [place] [address] Care Team Providers Care Hand Brush Filler Name Role Phone [facility] Primary Care Provider Allergies Active Allergy Reactions Criticality Noted Date [...] answered. Miscarried on 12/28/21 Was seen at [facility]. US report in media This is her 3rd SAB. She will like to see an MD for fertility consult Obesity in 12/24/2021 Overview (04/12/2022): Obesity in (BMI >30) BMI at Intake Date Obesity plan of care discussed BMI > 50 (at 36 weeks or before) transfer to tertiary care (send TE to Dina Polo) * If BMI 40 or greater [...] AM EDT Follow-Up [facility] LIVER [address] [place] [address] Jered Yang MD 55 [facility] [place] [address] Health Maintenance Due Date Last Done Comments [...] patient's age to complete this topic Insurance [facility] Care Teams Hand Brush Filler Relationship Specialty Start Date End Date [facility] [address] [place] [address] PCP - General 08/12/22
--- OUTSIDE RECORDS SUMMARY | 2025-02-14 08:34 | XMS_ITS | Encounter Summary ---
Author Organization [facility] Address [address] [place], [place] [address] Phone Care Team Providers Care Director Pharmaceutical Name Role Phone Ari Latham MD Primary Care Provider Joseph cortes Encounter Details Date Type Department Care Team (Late st Contact Info) Description 03/06/[address] [facility] [place] [address] [place], [place] [id number] Family Medicine, Physician [facility] [place] [address] Social History Tobacco Use Types Packs/Day Years [...] filedocumented in this encounter Care Teams Director Pharmaceutical Relationship Specialty Start Date End Date Ari Latham MD PCP - General 11/15/16 07/07/22 documented as of this encounter
--- OUTSIDE RECORDS SUMMARY | 2025-02-14 08:34 | XMS_ITS | Encounter Summary ---
Author Organization [facility] Address [address] [place], [place] [address] Phone Care Team Providers Care Poultry Processing Supervisor Name Role Phone Ari Latham MD Primary Care Provider Joseph cortes Encounter Details Date Type Department Care Team (Late st Contact Info) Description 03/06/2010 Documentation [facility] [place] [address] [place], [place] [phone] Family Medicine, Physician [facility] [place] [address] Social History Tobacco Use Types Packs/Day Years [...] on filedocumented in this encounter Care Teams Poultry Processing Supervisor Relationship Specialty Start Date End Date Ari Latham MD PCP - General 11/15/16 07/07/22 documented as of this encounter
--- OUTSIDE RECORDS SUMMARY | 2025-02-14 08:34 | XMS_ITS | Encounter Summary ---
Author Organization [facility] Address [address] [place], [place] [address] Phone Care Team Providers Care Waterside Worker Name Role Phone Ari Latham MD Primary Care Provider Joseph cortes Encounter Details Date Type Department Care Team (Late st Contact Info) Description 03/06/2010 Documentation [facility] [place] Medicine [address] [place], [place] [phone] Family Medicine, Physician [facility] [place] [address] Social History Tobacco Use Types Packs/Day Years [...] on filedocumented in this encounter Care Teams Waterside Worker Relationship Specialty Start Date End Date Ari Latham MD PCP - General 11/15/16 07/07/22 documented as of this encounter
--- OUTSIDE RECORDS SUMMARY | 2025-02-14 08:34 | XMS_ITS | Clinical Summary ---
Author Organization [facility] Address [address] [place] [address] Phone Care Team Providers Care Design Sales Consultant Name Role Phone Sofy Cardenas HECTOR Primary Care Provider [phone] Allergies Active Allergy Reactions Criticality Noted Date [...] Active ferrous sulfate 325 mg (65 mg [place] iron) tablet Take 325 mg by mouth [...] She will continue with her therapist at [facility]. F/U 6 weeks. She agrees with the [...] on 12/28/21 Was seen at [facility]. US report in media This is [...] 01/04/2021 Major depressive disorder 01/04/2021 Overview (06/26/2022): [facility] Tobacco [...] reflux disease 06/15/2011 Overview (12/27/2021): Admitted to [facility] 12/26/2021 for IV fluids, zofran, and phenergan Resolved Problems Problem Noted Date Diagnosed Date Resolved Date Hyperemesis gravidarum 12/27/202104/22 Overview (12/27/2021): Admitted to [facility] 12/26 for IV hydration and IV [...] without obstruction 01/09/20212023 Overview (12/27/2021): Admitted to [facility] 12/26/2021 for IV fluids, zofran, and phenergan Immunizations Immunization Administration Dates Next Due COVID-19 (Pre-01/27) Pfizer Vaccine, mRNA, radha-sucrose, PF 11/21/2021 DTP 07/06/1995, 5,06/04/1994,03/06 [id number] 05/07/1995, 5,06/04/1994,03/06 Dtap, 5 Pertussis Antigens 08/04/1998 [...] this topic Medical Devices Implanted Type Area Business Division Chair Device Identifier Shelf Expiration Date Model / Serial / Lot Implant Cochlear 3d Ultra [facility] [id number] Implanted:Qty: 1 on 02/18/2022 by Ari Loco MD, PhD at [facility] Right: Ear ADVANCED [id number] 10/04/2024 CI-1601-04 / [id number] / Implant Cochlear 3d Ultra [facility] [id number] Implanted:Qty: 1 on 07/15/2022 by Ari Loco MD, PhD at [facility] Left: Ear [employer] 11/04/2024 CI-1601-04 / [id number] / [id number] [place] [address] C3 ACO C3 ACO C3 ACO C3 ACO C3 ACO C3 ACO C3 ACO C3 ACO C3 ACO Advance Directives For more information, please contact: [phone] (9AM - 5PM [facility], Friday-Friday) Documents on File Type Date Recorded Patient Bit Sharpener Operator Expl anation Healthcare Proxy 02/19/2022 3:11 PM Care Teams Design Sales Consultant Relationship Specialty Start Date End Date Sofy Cardenas FNP [address] [place] [address] PCP - General 12/26/21 Additional Source Comments The information contained in this document represents components of the legal health record. It is not the complete legal health record.[facility]
--- OUTSIDE RECORDS SUMMARY | 2025-02-14 08:34 | XMS_ITS | Encounter Summary ---
Author Organization [facility] Address [address] [place] [address] Phone Care Team Providers Care Sales Manager Prearranged Funerals Name Role Phone Sofy Cardenas Primary Care Provider [phone] Encounter Details Date Type Department Care Team (Late st Contact Info) Description 07/22/2023 Procedure Pass [facility] LW PERIOP DEPT [address] [place] [address] Social History Tobacco Use Types Packs/Day Years [...] filedocumented in this encounter Care Teams Sales Manager Prearranged Funerals Relationship Specialty Start Date End Date Sofy CardenasHECTOR [address] [place] [address] PCP - General 12/26/21 documented as of this encounter Additional Source Comments The information contained in this document represents components of the legal health record. It is not the complete legal health record.[facility]
--- OUTSIDE RECORDS SUMMARY | 2025-02-14 08:34 | XMS_ITS | Encounter Summary ---
Author Organization [facility] Address [address] [place] [address] Phone Care Team Providers Care Fabric Lay Out Worker Name Role Phone Rosi Altamirano NP Primary Care Provider U Sofy Roberts Primary Care Provider [phone] Encounter Details Date Type Department Care Team (Late st Contact Info) Description 10/31/2021 Procedure Pass [facility] Imaging - [facility] [address] [place] [address] Social History Tobacco Use Types Packs/Day Years [...] on filedocumented in this encounter Care Teams Fabric Lay Out Worker Relationship Specialty Start Date End Date Rosi Altamirano NP PCP - General 01/04/21 12/25/21 Sofy Cardenas FNP [address] [place] [address] PCP - General 12/26/21 documented as of this encounter Additional Source Comments The information contained in this document represents components of the legal health record. It is not the complete legal health record.[facility]
--- OUTSIDE RECORDS SUMMARY | 2025-02-14 08:35 | XMS_ITS | Encounter Summary ---
Author Organization [facility] Address [address] [place], [place] [phone] Phone Care Team Providers Care Block Trader Name Role Phone Ari Latham MD Primary Care Provider Joseph cortes Encounter Details Date Type Department Care Team (Late st Contact Info) Description 02/24/2014 Documentation [facility] [place] [facility] [address] [place], [place] [phone] Family Medicine, Physician [facility] [place] [address] Social History Tobacco Use Types Packs/Day Years [...] on filedocumented in this encounter Care Teams Block Trader Relationship Specialty Start Date End Date Ari Latham MD PCP - General 11/15/16 07/07/22 documented as of this encounter
--- OUTSIDE RECORDS SUMMARY | 2025-02-14 08:35 | XMS_ITS | Encounter Summary ---
Author Organization [facility] Address [address] [place], [place] [address] Phone Care Team Providers Care Nurse Executive Name Role Phone Ari Latham MD Primary Care Provider Joseph cortes Encounter Details Date Type Department Care Team (Late st Contact Info) Description 09/10/2013 Documentation [facility] [place] [address] [place], [place] [phone] Family Medicine, Physician [facility] [place] [address] Social History Tobacco Use Types Packs/Day Years [...] on filedocumented in this encounter Care Teams Nurse Executive Relationship Specialty Start Date End Date Ari Latham MD PCP - General 11/15/16 07/07/22 documented as of this encounter
--- OUTSIDE RECORDS SUMMARY | 2025-02-14 08:35 | XMS_ITS | Encounter Summary ---
Author Organization [facility] Address [address] [place], [place] [address] Phone Care Team Providers Care Building Custodial Supervisor Name Role Phone Ari Latham MD Primary Care Provider Joseph cortes Encounter Details Date Type Department Care Team (Late st Contact Info) Description 11/08/2013 Documentation [facility] [place] [address] [place], [place] [phone] Family Medicine, Physician [place] [address] Social History Tobacco Use Types Packs/Day Years [...] on filedocumented in this encounter Care Teams Building Custodial Supervisor Relationship Specialty Start Date End Date Ari Latham MD PCP - General 11/15/16 07/07/22 documented as of this encounter
--- OUTSIDE RECORDS SUMMARY | 2025-02-14 08:35 | XMS_ITS | Encounter Summary ---
Author Organization [facility] Address [address] [facility] [address] [place] [address] Phone Care Team Providers Care Basic Sciences Professor Name Role Phone Sofy Cardenas Primary Care Provider [phone] Encounter Details Date Type Department Care Team (Late st Contact Info) Description 02/18/2022 Procedure Pass [facility] MAIN PERIOP DEPT [address] [place] [address] Social History Tobacco Use Types Packs/Day Years [...] on filedocumented in this encounter Care Teams Basic Sciences Professor Relationship Specialty Start Date End Date Sofy Cardenas FNP [address] [place] [address] PCP - General 12/26/21 documented as of this encounter Additional Source Comments The information contained in this document represents components of the legal health record. It is not the complete legal health record.[facility]
--- OUTSIDE RECORDS SUMMARY | 2025-02-14 08:35 | XMS_ITS | Encounter Summary ---
Author Organization [employer] Address [address] [facility] 7 [place] [address] Care Team Providers Care Judge Name Role Phone [place] tadeo HOME HEALTH TRAVEL OT Primary Care Provider [phone] Paul Yu Unavailable Unavailable Encounter Details Date Type Department Care Team ([facility] st Contact Info) Description 02/12/2023 Telephone [facility] MEDICINE [address] [place], [place] [phone] [place] [facility] [address] [place], [place] [phone] Social History Tobacco Use Types Packs/Day Years [...] Description 02/14/2025 1:45 PM EST Office Visit [facility] MEDICINE [address] [place] [address] Sofy Cardenas FNP [address] [place] [address] documented as of this encounter Visit Diagnoses Not on filedocumented in this encounter Additional Health Concerns Assessment Noted Time PHQ-9 Depression Total Score: 1 12/17/19 23 1:45 PM EDT documented as of this encounter Care Teams Judge Relationship Specialty Start Date End Date Sofy Cardenas FNP [address] [place] [address] PCP - General Family Medicine 11/30/21 Paul Yu FNP [address] [place] [address] Nurse Practitioner Family Medicine 02/26/23 documented as of this encounter
--- OUTSIDE RECORDS SUMMARY | 2025-02-14 08:35 | XMS_ITS | Encounter Summary ---
Author Organization [facility] Address [address] [place], [place] [address] Phone Care Team Providers Care Adult Educator Name Role Phone Ari Latham MD Primary Care Provider Joseph cortes Encounter Details Date Type Department Care Team (Late st Contact Info) Description 11/08/2013 Documentation [facility] [place] Medicine [address] [place], [place] [phone] Family Medicine, Physician [facility] [place] [address] Social History Tobacco Use Types Packs/Day Years [...] on filedocumented in this encounter Care Teams Adult Educator Relationship Specialty Start Date End Date Ari Latham MD PCP - General 11/15/16 07/07/22 documented as of this encounter
--- OUTSIDE RECORDS SUMMARY | 2025-02-14 08:35 | XMS_ITS | Encounter Summary ---
Author Organization [facility] Address [address] [place], [place] [address] Phone Care Team Providers Care Boxing And Pressing Supervisor Name Role Phone Ari Latham MD Primary Care Provider Joseph cortes Encounter Details Date Type Department Care Team (Late st Contact Info) Description 09/02/2013 Documentation [facility] [place] Family Medicine [address] [place], [place] [phone] Family Medicine, Physician [place] [place] [address] Social History Tobacco Use Types Packs/Day Years [...] on filedocumented in this encounter Care Teams Boxing And Pressing Supervisor Relationship Specialty Start Date End Date Ari Latham MD PCP - General 11/15/16 07/07/22 documented as of this encounter
--- OUTSIDE RECORDS SUMMARY | 2025-02-14 08:35 | XMS_ITS | Encounter Summary ---
Author Organization [facility] Address [address] [place] [phone] Phone Care Team Providers Care Doll Wigs Hackler Name Role Phone Sofy Cardenas HECTOR Primary Care Provider [phone] Encounter Details Date Type Department Care Team (Late st Contact Info) Description 09/28/2023 Procedure Pass [facility], Ct Scan - [address] [address] Social History Tobacco Use Types Packs/Day Years [...] 3:20 PM EDT Delores Gongora RN * Richards Suicide Severity Rating Scale (Screener/Recent Self-Report) Question [...] on filedocumented in this encounter Care Teams Doll Wigs Hackler Relationship Specialty Start Date End Date Sofy Cardenas FNP [address] [place] [id number] PCP - General 12/26/21 documented as of this encounter Additional Source Comments The information contained in this document represents components of the legal health record. It is not the complete legal health record.[facility]
--- OUTSIDE RECORDS SUMMARY | 2025-02-14 08:35 | XMS_ITS | Encounter Summary ---
Author Organization [facility] Address [address] [place], [place] [phone] Phone Care Team Providers Care Electronic Prepress Operator Name Role Phone Ari Latham MD Primary Care Provider Joseph cortes Encounter Details Date Type Department Care Team (Late st Contact Info) Description 09/24/2013 Documentation [facility] [place] [facility] [address] [place], [place] [phone] Family Medicine, Physician [facility] [place] [address] Social History Tobacco Use Types Packs/Day Years [...] on filedocumented in this encounter Care Teams Electronic Prepress Operator Relationship Specialty Start Date End Date Ari Latham MD PCP - General 11/15/16 07/07/22 documented as of this encounter
--- OUTSIDE RECORDS SUMMARY | 2025-02-14 08:35 | XMS_ITS | Encounter Summary ---
Author Organization [employer] Address [address] [place] [address] [address] [place] [address] Care Team Providers Care Scooter Mechanic Name Role Phone [facility] Primary Care Provider Paul Yu Unavailable Unavailable Reason for Visit * Reason Onset Date Comments Nurse Triage 04/15/2023 Encounter Details Date Type Department Care Team ([facility] st Contact Info) Description 04/15/2023 Telephone [facility] MEDICINE [address], [place] [phone] [facility] [address] [place] [address] Nurse Triage Social History Tobacco Use Types [...] accepted this outcome Please contact pt at [phone] documented in this encounter Plan of Treatment Upcoming Encounters Date Type Department Care Team (Late st Contact Info) Description 02/14/2025 1:45 PM EST Office Visit [facility] MEDICINE [address] [place] [address] Sofy Cardenas FNP [address] [place] [address] documented as of this encounter Visit Diagnoses Not on filedocumented in this encounter Additional Health Concerns Assessment Noted Time PHQ-9 Depression Total Score: 6 03/06/20 23 2:58 PM EST documented as of this encounter Care Teams Scooter Mechanic Relationship Specialty Start Date End Date Sofy Cardenas FNP [address] [place] [phone] PCP - General Family Medicine 11/30/21 Paul Yu FNP [address] [place] [phone] Nurse Practitioner Family Medicine 02/26/23 documented as of this encounter
--- OUTSIDE RECORDS SUMMARY | 2025-02-14 08:35 | XMS_ITS | Encounter Summary ---
Author Organization [facility] Address [address] [place], [place] [phone] Phone Care Team Providers Care Certified Hyperbaric Technologist Name Role Phone Ari Latham MD Primary Care Provider Joseph cortes Encounter Details Date Type Department Care Team (Late st Contact Info) Description 09/05/2009 Documentation [facility] Family Medicine [address] [place], [place] [phone] Family Medicine, Physician [facility] [place] [address] Social History Tobacco Use Types Packs/Day Years [...] filedocumented in this encounter Care Teams Certified Hyperbaric Technologist Relationship Specialty Start Date End Date Ari Latham MD PCP - General 11/15/16 07/07/22 documented as of this encounter
--- OUTSIDE RECORDS SUMMARY | 2025-02-14 08:35 | XMS_ITS | Encounter Summary ---
Author Organization [facility] Address [address] [place], [place] [phone] Phone Care Team Providers Care Ticket Collector Or Usher Name Role Phone Ari Latham MD Primary Care Provider Joseph cortes Encounter Details Date Type Department Care Team (Late st Contact Info) Description 08/09/2013 Documentation [facility] [place] Medicine [address] [place], [place] [phone] Family Medicine, Physician [facility] [place] [address] Social History Tobacco Use Types Packs/Day Years [...] on filedocumented in this encounter Care Teams Ticket Collector Or Usher Relationship Specialty Start Date End Date Ari Latham MD PCP - General 11/15/16 07/07/22 documented as of this encounter
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
== END 2025-02-14 08:13 | disposition home or self-care (01) ==
LOC: HO.NEURO 08:12
PROVIDERS: PCP Registered Nurse; Visit Provider Registered Nurse
DX: G40.909 Epilepsy, unspecified, not intractable, without status epilepticus (principal)
CPT/HCPCS: 95816

== ENCOUNTER → 2025-02-14 09:10 | Outpatient (BNV) | payer MEDICAID, SELFPAY | PROVIDERS: PCP Registered Nurse; Visit Provider Psychiatry & Neurology Neurology | DX: R94.01 Abnormal electroencephalogram [EEG] (principal); G40.909 Epilepsy, unspecified, not intractable, without status epilepticus | CPT/HCPCS: 95816 ==

== ENCOUNTER 2025-03-10 12:46 | Outpatient (AMB) | payer MEDICAID, SELFPAY ==
--- NOTE | 2025-03-10 13:06 | A.OFFVIS_ITS ---
Vital Signs 03/10/25 13:13 Height 4 ft 11 in Weight 253 lb BMI 51.1 Intake Visit Reasons: OV- LT ACL recon. w/ Allograft 04/14/24 NE Intake Note: Fabiola is a 29 year old female who presents today for a follow up of her Left Knee. Hx of Left ACL Reconstruction 04/14/24. She has some personal problems that occurred post operatively which impacted her adherence to post operative protocols. At her last visit she was improving & it was advised to avoid twisting and lateral movements. Patient reports that her knee is doing well, not really much pain. States when her pain is present she uses icing that provides relief. Allergies acetic acid Allergy (Severe, Verified 03/10/25 13:13) Anaphylaxis from Vinegar raspberry (RASPBERRY) Allergy (Severe, Verified 03/10/25 13:13) Anaphylaxis turkey Allergy (Severe, Verified 03/10/25 13:13) Anaphylaxis azithromycin (AZITHROMYCIN) Allergy (Unknown, Verified 03/10/25 13:13) Vomiting cefuroxime (From Ceftin) Allergy (Unknown, Verified 03/10/25 13:13) Vomiting clonidine (CLONIDINE) Allergy (Unknown, Verified 03/10/25 13:13) Nausea and Vomiting dexlansoprazole (From Dexilant) Allergy (Unknown, Verified 03/10/25 13:13) Unknown methylphenidate (Methylphenidate) Allergy (Unknown, Verified 03/10/25 13:13) Unknown nortriptyline (NORTRIPTYLINE) Allergy (Unknown, Verified 03/10/25 13:13) Swelling pantoprazole (PANTOPRAZOLE) Allergy (Unknown, Verified 03/10/25 13:13) Unknown penicillin V Allergy (Unknown, Verified 03/10/25 13:13) Vomiting latex Allergy (Verified 03/10/25 13:13) Anaphylaxis shellfish derived Allergy (Verified 03/10/25 13:13) Anaphylaxis celecoxib (CELECOXIB) Adverse Reaction (Unknown, Verified 03/10/25 13:13) Nausea and Vomiting erythromycin base (ERYTHROMYCIN BASE) Adverse Reaction (Unknown, Verified 03/10/25 13:13) Hives, Vomiting lorazepam (From Ativan) Adverse Reaction (Unknown, Verified 03/10/25 13:13) Agitated Penicillins (PENICILLINS) Adverse Reaction (Unknown, Verified 03/10/25 13:13) Stomach Upset Epidural Needle Allergy (Unknown, Uncoded 03/10/25 13:13) Unknown Medication List - Last Reconciled 03/10/25 by Alejandro Carver PA-C albuterol sulfate 90 mcg/actuation 2 puffs inhalation Q4-6H PRN arm brace (Wrist Brace) put on left wrist at night, take off in daytime atomoxetine (Strattera) 18 mg PO DAILY cetirizine (All Day Allergy (cetirizine)) 10 mg PO DAILY PRN duloxetine 20 mg PO DAILY epinephrine 0.3 mg IM Q4H PRN gabapentin 600 mg PO TID lurasidone (Latuda) 20 mg PO QAM ondansetron 8 mg PO Q8H PRN tirzepatide (weight loss) (Zepbound) 2.5 mg subcut QWEEK topiramate 25 mg PO BID 90 days HPI HPI OV- LT ACL recon. w/ Allograft 04/14/24 NE: Details: 29-year-old female returns to the office today almost 1 year out from left knee ACL reconstruction with allograft date of surgery 04/14/2024. Patient is doing significantly well. She denies instability. No pain with activities. [facility] Medical History Seizures Frequent falls Cochlear implant in place Lesion of liver Hearing impaired Fibromyalgia Surgical History Hx of cholecystectomy [place] teeth removed Family History Mother Rheumatoid arthritis Osteoarthritis Father Arthritis Social History Household Members: Family Housing: Apartment Do you presently have visiting nurse or other home services: No Alcohol intake: current Alcohol intake frequency: a few times a week Comment: pt refusing high fall risk interventions Patient Tobacco Use Status: Former Tobacco user Tobacco use type: Cigarette Years Smoked: 8 Current occupational status: student Review of Systems Const All systems reviewed & are unremarkable except as noted in HPI and below Physical Exam Vital Signs: BMI result Body Mass Index 51.1 Extrem Other: Left knee incisions well healed. Full range of motion left knee. stable Babak's with endpoint. No effusion. Assessment & Plan Assessment & Plan (1) Status post reconstruction of anterior cruciate ligament: Code(s): Z98.890 - Other specified postprocedural states Category: Surgical Plan: The patient will continue with activities as tolerated. I did educate her on caution with activity. She does not play sports. She will contact us if there is any questions or concerns going forward otherwise follow up as needed. Coding Level of Care Code Complex visit Add On G2211 Diagnoses Status post reconstruction of anterior cruciate ligament Z98.890
[2025-03-10 13:13] VITALS: BMI 51.1
== END 2025-03-10 13:41 | disposition home or self-care (01) ==
PROVIDERS: Visit Provider Physician Assistant
DX: Z47.89 Encounter for other orthopedic aftercare (principal)
CPT/HCPCS: 99213

== ENCOUNTER → 2025-03-10 12:46 | Outpatient (BNVA) | payer MEDICAID, SELFPAY | PROVIDERS: Visit Provider Orthopaedic Surgery | DX: Z98.890 Other specified postprocedural states (principal) | CPT/HCPCS: 99212 ==